=== PATIENT | female | born 2000 | race Caucasian/White ===

== ENCOUNTER 2023-03-07 16:44 | Outpatient (CLI) | payer BC, SELFPAY | END 2023-03-07 16:45 | disposition home or self-care (01) | LOC: LKVREF 16:47 | PROVIDERS: PCP Physician Assistant Medical; Visit Provider Physician Assistant Medical | DX: R06.02 Shortness of breath (principal) | CPT/HCPCS: 84443 ==

== ENCOUNTER 2023-06-22 15:13 | Outpatient (CLI) | payer BC, SELFPAY ==
--- OUTSIDE RECORDS SUMMARY | 2023-06-22 15:20 | XMS_ITS | Referral Summary ---
Author Name Unknown Organization [facility] Address [address] [place] [id number] Care Team Providers Care Assistant Toddler Teacher Name Role Phone Leslie Silvestre MD Primary Care Provider [phone] Leslie Silvestre MD Unavailable [phone] Encounters Date Type Department Care Team Description 04/06/2023 Travel 04/06/2023 12:30 PM OPERATIONS ADMINISTRATIVE ASSISTANT Ancillary Procedure [address] [place] [address] Vi La, MYRA Irregular menses from Last 3 Months Allergies Active Allergy Reactions Criticality Noted Date Comments No Known Drug Allergy 12/10/2002 Medications Medication Sig Dispensed Refills Start Date End Date Status norethindrone-ethiny l estradiol (JUNE06/11) 1-20 MG-MCG tabletIndications:En counter for other contraceptive management Take 1 tablet by mouth daily 84 tablet 3 03/18/2022 Active Additional Information Patient not taking.Reported on 01/31/2023 norethindrone-ethiny l estradiol (MICROGESTIN 1.5/30) 1.5-30 MG-MCG tabletIndications:En counter for other contraceptive management Take 1 tablet by mouth daily 84 tablet 3 07/05/2022 Active Additional Information Patient not taking.Reported on 01/31/2023 escitalopram (LEXAPRO) 10 MG tabletIndications:Mo derate episode of recurrent major depressive disorder (H),KERWIN (generalized anxiety disorder) Take 1 tablet (10 mg) by mouth daily 30 tablet 1 02/02/2023 Active Active Problems Problem Noted Date Diagnosed Date Anxiety 01/10/2023 Moderate recurrent major depression 01/10/2023 Cyst of right ovary 05/14/2020 Atypical squamous cells of u ndetermined significance (ASCUS) on Papanicolaou smear of cervix 06/28/2019 Overview: 06/28/19 ASCUS, 19 yr old. Plan 1 yr Dx pap cytology 04/30/20 NIL pap, neg HPV (age 20). Plan pap only in 1 year 06/22/21 Lost to follow-up for pap tracking 03/17/22 NIL Pap. Plan pap in 3 years. Indication for care in labor or delivery 019 (normal spontaneous vaginal delivery) 12/06 Adjustment disorder with mixed anxiety and depre ssed mood 03/30/2018 Acne vulgaris 03/25/2015 Blood type AB+ Immunizations Name Administration Dates Next Due DTAP (<7y) 07/29/2003, 0,02/04/1999,09/22,1998 HIB (PRP-T) 02/04/1999,1998,1998 HPV 12/18/2013,03/26/2013,01/02/2013 HepB 02/04/1999,1998,1998 Influenza (IIV3) PF 01/28/2012, 8,03/30/2007,07/05 Influenza Vaccine >6 months,quad, PF 01/2020,04/17/2018,06/02/2017,04/01,03/25/2015,05/02/2014,03/26/2013 Influenza Vaccine, 6+MO IM (QUADRIVALENT W/PRESERVATIVES) 02/20/2018 Influenza, seasonal, injectable, PF 02/09/2010,0 02/18/2009 MMR 07/29/2003,06/17/1999 Mantoux Tuberculin Skin Test 07/03/2018 Meningococcal ACWY (Menactra??) 12/18/2013,07/28 Poliovirus, inactivated (IPV) 07/29/2003 ,09/01/1999,1998,05/27 TDAP Vaccine (Adacel) 10/25/2018,10/20/2010 Varicella 03/06/2008,06/17/1999 Social History Tobacco Use Types Packs/Day Years Used Date Smoking Tobacco: Never Smokeless Tobacco: Never Tobacco Cessation:Counseling Given: Not Answered Alcohol Use Standard Drinks/Week Comments Yes 0 (1 standard drink = 0.6 oz pur e alcohol) 0-2 x week Social Connection and Isolat ion Panel [NHANES] Answer Date Recorded In a typical week, how many times do you talk on the phone with family, friends, or neighbors? More than three times a week 07/05/2022 How often do you get togethe r with friends or relatives? Twice a week 07/05/2022 How often do you attend [facility] or pentecostalism services? Never 07/05/2022 Do you belong to any clubs o r organizations such as pentecostal groups, unions, fraternal or athletic groups, or school groups? No 07/05/2022 Attends Club or Organization Meetings Not on brnida e 07/05/2022 Are you , , di vorced, , never , or living with a partner? Patient declined 07/05/2022 AUDIT-C Answer Date Recorded Q1: How often do you have a drink containing alc ohol? Patient declined 07/05/2022 Q2: How many drinks containi ng alcohol do you have on a typical day when you are drinking? Patient declined 07/05/2022 Q3: How often do you have si x or more drinks on one occasion? Patient declined 07/05/2022 Overall Financial Resource Strain (CARDIA) Answe r Date Recorded How hard is it for you to pa y for the very basics like food, housing, medical care, and heating? Patient declined 07/05/2022 PHQ-2 Answer Date Recorded PHQ-2 Score 5 01/31/2023 [facility] [place] [facility] - Occupational Stress Questionnaire Answer Date Recorded Do you feel stress - tense, restless, nervous, or anxious, or unable to sleep at night because your mind is troubled all the time - these days? To some extent 07/05/2022 Exercise Vital Sign Answer Date Recorde d On average, how many days pe r week do you engage in moderate to strenuous exercise (like a brisk walk)? 1 day 07/05/2022 On average, how many minutes do you engage in exercise at this level? 10 min 07/05/2022 Hunger Vital Sign Answer Date Recorded Within the past 12 months, y ou worried that your food would run out before you got the money to buy more. Patient declined Within the past 12 months, t he food you bought just didn't last and you didn't have money to get more. Patient declined PRAPARE - Transportation Answer Date Re corded In the past 12 months, has l ack of transportation kept you from medical appointments or from getting medications? Patient declined 07/05/2022 In the past 12 months, has l ack of transportation kept you from meetings, work, or from getting things needed for daily living? Patient declined 07/05/2022 Housing Stability Vital Sign Answer Car e Recorded In the last 12 months, was t here a time when you were not able to pay the mortgage or rent on time? Patient refused 07/05/19 23 In the last 12 months, how many places have you lived? 1 07/05/2022 In the last 12 months, was t here a time when you did not have a steady place to sleep or slept in a senior living (including now)? Patient refused 07/05/2022 [place] Depression Scale Answer Date Recorded [place] Depression Score 0 12/07/2018 Last EPDS Self Harm Result Not on file 12/07 Education Answer Date Recorded What is the highest level of school you have completed or the highest degree you have received? 12th grade 06/28/2019 Sex and Gender Information Value Date Recorded Sex Assigned at Female 06/28/2018 11:22 AM OPERATIONS ADMINISTRATIVE ASSISTANT Gender Identity Female 06/28/2018 11:22 AM OPERATIONS ADMINISTRATIVE ASSISTANT Sexual Orientation Not on file Last Filed Vital Signs Vital Sign Reading Time Taken Comments Blood Pressure 125/88 02/22/2023 1:50 AM CDT Pulse 80 02/22/2023 1:50 AM CDT Temperature 36.9 ??C (98.5 ??F) 02/21/2023 5:44 PM CD T Respiratory Rate 20 02/22/2023 1:50 AM CDT Oxygen Saturation 99% 02/22/2023 1:50 AM CDT Inhaled Oxygen Concentration - - Weight 54.4 kg (120 lb) 01/31/2023 9:58 AM CDT Height 160 cm (5' 3) 01/31/2023 9:58 AM CDT Body Mass Index 21.26 01/31/2023 9:58 AM CDT Plan of Treatment Upcoming Encounters Date Type Department Care Team (Late st Contact Info) Description 08/03/2023 1:00 PM CDT Office Visit [facility] [address] [place] [phone] [place] Sil[place]re [place] [phone] [place] [id number] Procedures Procedure Name Priority Date/Time Associated Diagnosis Comments US PELVIC TRANSABDOMINAL AND TRANSVAGINAL Routine 04/06/2023 12:46 PM OPERATIONS ADMINISTRATIVE ASSISTANT Irregular menses from Last 3 Months Results * US Pelvic Complete with Transvaginal (04/06/2023 12:46 PM OPERATIONS ADMINISTRATIVE ASSISTANT) Anatomical Region Laterality Modality Abdomen/Pelvis Ultrasound Narrative 04/06/2023 2:37 PM OPERATIONS ADMINISTRATIVE ASSISTANT [facility] Obstetrics and Gynecology ?? ULTRASOUND - PELVIC SIGNALS INTELLIGENCE ANALYSIS MANAGER- Transabdominal and Transvaginal Referring MD: Vi La CLINICAL INFORMATION Indications for ultrasound: Bleeding/Menses - Menorrhagia (heavy menses) and Pain - Pelvic pain LMP: Mar 14 ?Hormones: none Measurements: Uterus: ??8.0 x 5.9 x ??4.8 cm ?? Position is retroverted. ??Contour is smooth/regular. Endo cav: 9.2 mm ? Smooth/regular/wnl Right ovary: 3.9 x 3.4 x 2.3 cm ??Complex cyst 1.7 x 1.3 x 1.5 cm Left ovary: ?? 3.9 x 3.3 x 2.0 cm Wnl Cul de sac: no free fluid Technique: Transvaginal Imaging performed Transabdominal Imaging performed Impression: Complete pelvic ultrasound using realtime transabdominal and transvaginal scanning Bladder appears normal Normal uterus. Uterus is retroverted. Endometrium noted to be normal. Normal left ovary. Complex small right ovarian cyst, benign appearing and consistent with a hemorrhagic corpus luteum. ??Small cysts of this size in reproductive age patients do not typically require follow-up, but clinical correlation recommended. No cul-de-sac fluid. Essentially normal pelvic ultrasound. Issac Islas MD Obstetrics & Gynecology [facility] Note: Federal law requires the release of results to patients even prior to the ordering provider viewing the result. Your provider will notify you, generally within the next business day, of any critical results. If follow up is necessary, you will be notified at that time. Normal results, and abnormal but non-urgent results, will generally be addressed within 2-3 business days. Vi La PA-C [facility] US ORDERABLES from Last 3 Months Care Teams Assistant Toddler Teacher Relationship Specialty [place] [address] [place] [address] PCP - General Family Practice 11/27/18 [place] [address] [place] [address] Assigned PCP 05/11/20
--- OUTSIDE RECORDS SUMMARY | 2023-06-22 15:20 | XMS_ITS | Encounter Summary ---
Author Name Unknown Organization [facility] Address [address] [place] [address] Care Team Providers Care Big 6 Dealer Name Role Phone Leslie Silvestre MD Primary Care Provider [phone] Leslie Silvestre MD Unavailable [phone] Reason for Visit * Reason Comments Menstrual Problem Encounter Details Date Type Department Care Team (Late st Contact Info) Description 02/21/2023 11:47 PM CDT - 02/22/2023 1:51 AM CDT Emergency [facility] Emergency Dept [address] [place] [address] Rickey Elizondo MD [facility] [address] [place] [address] Dysfunctional uterine bleeding Discharge Disposition: Home or Self Care Social History Tobacco Use Types Packs/Day Years Used Date Smoking Tobacco: Never Smokeless Tobacco: Never Alcohol Use Standard Drinks/Week Comments Yes 0 [...] week 07/05/2022 How often do you attend formerly [facility] or [facility] services? Never 07/05/2022 Do you belong to any clubs o r organizations such as uatsdin groups, unions, fraternal or athletic groups, or school groups? No 07/05/2022 Attends Club or Organization Meetings Not on brinda e 07/05/2022 Are you , , di [...] Answer Date Recorded PHQ-2 Score 5 [facility] - Occupational Stress Questionnaire Answer Date Recorded [...] place to sleep or slept in a fdc (including now)? Patient refused 07/05/2022 [place] Depression Scale Answer Date Recorded [place] Depression Score 0 12/07/2018 Last EPDS Self Harm Result Not on file 12/07 Education Answer Date Recorded What is the highest level of school you have completed or the highest degree you have received? 12th grade 06/28/2019 Sex and Gender Information Value Date Recorded Sex Assigned at Female 06/28/2018 11:22 AM DIRECTOR SERVICE Gender Identity Female 06/28/2018 11:22 AM DIRECTOR SERVICE Sexual Orientation Not on file COVID-19 Exposure Response Date Recorded In the last 10 days, have yo u been in contact with someone who was confirmed or suspected to have Coronavirus/COVID-19? No / Unsure 02/21/2023 5:44 PM CDT documented as of this encounter Last Filed Vital Signs Vital Sign Reading Time Taken Comments Blood Pressure 125/88 02/22/2023 1:50 AM CDT Pulse 80 02/22/2023 1:50 AM CDT Temperature 36.9 ??C (98.5 ??F) 02/21/2023 5:44 PM CD T Respiratory Rate 20 02/22/2023 1:50 AM CDT Oxygen Saturation 99% 02/22/2023 1:50 AM CDT Inhaled Oxygen Concentration - - Weight - - Height - - Body Mass Index - - documented in this encounter Discharge Instructions * Discharge Instructions* Rickey Elizondo MD - 02/22/2023 1:38 AM CDT Please monitor symptoms closely. Follow-up with TUCKING MACHINE OPERATOR. You may discuss symptoms further at that time and determine if you would benefit from control medication Return to the ER if you develop worsening bleeding, cramping, dizziness, lightheadedness, or any other concerns. Discharge Instructions Vaginal Bleeding You were seen today for unusual vaginal bleeding. Heavy or irregular bleeding may be caused by manydifferent things such as hormone changes, infection, control, or cancer. At this time your provider does not find that your bleeding is a sign of anything dangerous or life-threatening, and youhave not lost enough blood to be dangerous. However, sometimes the signs of serious illness do not s how up right away. If you have new or worse symptoms, you may need to be seen again in the Emergency Department or by your primary provider. Generally, every Emergency Department visit should have a follow-up clinic visit with either a primary or a specialty clinic/provider. Please follow-up as instructed by your emergency provider today. Return to the Emergency Department if: You feel lightheaded or faint. Your bleeding becomes much heavier than it is now. You have severe cramping or abdominal (belly) pain. You have any new or different symptoms. Treatment: Motrin?? or Advil?? (ibuprofen) can help relieve cramps and can also decrease bleeding. You may usethis according to the directions on the package. Do not use a medicine that you are allergic to, orif your provider has told you not to use it. Hormone pills or control pills are occasionally prescribed to help control the bleeding but often this is left to an TUCKING MACHINE OPERATOR provider. These can cause problems if you have a history of blood clots or stroke, so tell your provider if you have these problems before you leave. Iron tablets may be recommended if you have anemia (low blood count.) Iron can cause constipation, so be sure to have plenty of fiber in your diet and let your provider know if you have problems. Drinking plenty of fluid is important. Be sure to drink extra water or other healthy drinks. If you were given a prescription for medicine here today, be sure to read all of the information (including the package insert) that comes with your prescription. This will include important information about the medicine, its side effects, and any warnings that you need to know about. The pharmacist who fills the prescription can provide more information and answer questions you may have about the medicine. If you have questions or concerns that the pharmacist cannot address, please call or return to the Emergency Department. Remember that you can always come back to the Emergency Department if you are not able to see your regular provider in the amount of time listed above, if you get any new symptoms, or if there is anything that worries you. documented in this encounter Medications at Time of Discharge Medication Sig Dispensed Refills Start Date End Date escitalopram (LEXAPRO) 10 MG tabletIndications:Moderate episode of recurrent major depressive disorder (H),KERWIN (generalized anxiety disorder) Take 1 tablet (10 mg) by mouth daily 30 tablet 1 02/02/2023 norethindrone-ethinyl estradiol (JUNEL FE 06/11) 1-20 MG-MCG tabletIndications:Encounte r for other contraceptive management Take 1 tablet by mouth daily 84 tablet 3 03/18/2022 norethindrone-ethinyl estradiol (MICROGESTIN 1.530) 1.5-30 MG-MCG tabletIndications:Encounte r for other contraceptive management Take 1 tablet by mouth daily 84 tablet 3 07/05/2022 documented as of this encounter ED Notes * Nai Castillo RN - 02/22/2023 12:59 AM CDT Bed: RP01 Expected date: Expected time: Means of arrival: Comments: In use * Ioana Ko RN - 02/21/2023 5:44 PM CDT Pt arrives with changes to her cycle. States it has come at the regular time but it is clotting andsticky and she feels off. Also notes pain to both of her legs that began with her period. ABCs intact. BP (!) 118/94 Pulse 94 Temp 98.5 ??F (36.9 ??C) (Temporal) Resp 20 LMP 01/09/2023 (Approximate) SpO2 100% Triage Assessment Row Name 02/21/23 4084 Triage Assessment (Adult) Airway WDL WDL Respiratory WDL Respiratory WDL WDL Cardiac WDL Cardiac WDL WDL Cognitive/Neuro/Behavioral WDL Cognitive/Neuro/Behavioral WDL WDL * Rickey Elizondo MD - 02/21/2023 5:29 PM CDT History Chief Complaint: Menstrual Problem HPI Yadi Roblero is a 22 year old female presenting to the emergency department for evaluation of a menstrual problem. Patient reports for the past 3 months, she has noted irregular menstrual cycles. She notes they typically occur once per month, though are heavier, with passage of clots, and only lasting for 3 days as opposed to the 7 days. In conjunction with this, she has noted episodes of mild dizziness, lightheadedness, and visual blurring, worsened with changes in body position. She denies any syncopal episodes. Has noted intermittent pain from the right side of her abdomen that radiates superiorly, which has been present for the past 3 months. Denies any vaginal discharge. Past history significant for 1 medication-induced as well as 1 D&C with [facility]. She is not currently on control medications. She does not have a current TUCKING MACHINE OPERATOR provider. Patient presents to the ER today as she noted a unusual sensation to her anterior bilateral lower extremities. She has been cleaning around the house for a few minutes when she developed a feeling of tingling from the distal aspect of her thighs bilaterally extending inferiorly to her shins. This lasted for about 5 minutes. She denies any recurrent symptoms. Denies any associated abdominal pain or back pain with that. Independent Historian: None - Patient Only Review of External Notes: None Medications: No current medications Past Medical History: Past Medical History: Diagnosis Date Abnormal Pap smear of cervix 06/28/2019 Anxiety Blood type AB+ Past Surgical History: Past Surgical History: Procedure Laterality Date NO HISTORY OF SURGERY Physical Exam Patient Vitals for the past 24 hrs: BP Temp Temp src Pulse Resp SpO2 02/22/23 0150 125/88 -- -- 80 20 99 % 02/21/23 1744 (!) 118/94 98.5 ??F (36.9 ??C) Temporal 94 20 100 % Physical Exam General: Well-nourished Speaking in full sentences Eyes: Conjunctiva without injection or scleral icterus ENT: Moist mucous membranes Nares patent Pinnae normal Neck: Full ROM No stiffness appreciated Resp: Lungs CTAB No crackles, wheezing or audible rubs Good air movement CV: Normal rate, regular rhythm S1 and S2 present No murmur, gallop or rub GI: BS present Abdomen soft without distention Non-tender to light and deep palpation No guarding or rebound tenderness : (With female software support engineer present) Unremarkable external genitalia Blood noted in vaginal vault Once cleared, no obvious mass or lesion Cervical os unable to be visualized, though visualized cervix without erythema or discharge No CMT, adnexal or uterine tenderness or palpable mass Skin: Warm, dry, well perfused No rashes or open wounds on exposed skin MSK: Moves all extremities No focal deformities or swelling 2+ DP and PT pulse bilaterally Neuro: Alert 5/5 ankle dorsi/plantarflexion 5/5 knee flexion/extension SILT in BLE Answers questions appropriately Moves all extremities equally Gait stable Psych: Normal affect, normal mood Emergency Department Course Imaging: US Pelvic Complete with Transvaginal Final Result IMPRESSION: 1. Normal pelvic ultrasound. Report per radiology Laboratory: Labs Ordered and Resulted from Time of ED Arrival to Time of ED Departure BASIC METABOLIC PANEL - Abnormal Result Value Sodium 139 Potassium 4.0 Chloride 104 Carbon Dioxide (CO2) 25 Anion Gap 10 Urea Nitrogen 7.9 Creatinine 0.60 GFR Estimate >90 Calcium 8.9 Glucose 120 (*) ISTAT HCG QUALITATIVE POCT - Normal HCG Qualitative POCT Negative WET PREPARATION - Normal Trichomonas Absent Yeast Absent Clue Cells Absent WBCs/high power field None CBC WITH PLATELETS AND DIFFERENTIAL WBC Count 6.9 RBC Count 4.42 Hemoglobin 12.5 Hematocrit 38.2 MCV 86 MCH 28.3 MCHC 32.7 RDW 12.3 Platelet Count 266 % Neutrophils 77 % Lymphocytes 17 % Monocytes 6 Mids % (Monos, Eos, Basos) % Eosinophils 0 % Basophils 0 % Immature Granulocytes 0 NRBCs per 100 WBC 0 Absolute Neutrophils 5.3 Absolute Lymphocytes 1.2 Absolute Monocytes 0.4 Mids Abs (Monos, Eos, Basos) Absolute Eosinophils 0.0 Absolute Basophils 0.0 Absolute Immature Granulocytes 0.0 Absolute NRBCs 0.0 CHLAMYDIA TRACHOMATIS PCR NEISSERIA GONORRHOEAE PCR Procedures None Emergency Department Course & Assessments: Interventions: Medications - No data to display Assessments: See below Independent Interpretation (X-rays, CTs, rhythm strip): None Consultations/Discussion of Management or Tests: ED Course as of 02/22/23 0712 TueFeb 22, 2023 0029 Patient re-evaluated 0144 Patient re-evaluated Social Determinants of Health affecting care: None and Healthcare Access/Compliance Disposition: The patient was discharged to home. Impression & Plan Medical Decision Making: Yadi Roblero is a 22 year old female presenting to the ER for evaluation of vaginal bleeding. VS on presentation reveal no acute abnormalities. DDx is broad, including but not limited to dysfunctional uterine bleeding, menorrhagia, menometrorrhagia, structural abnormalities (fibroids, polyp, pelvic tumor), atrophic endometrium (post-menopausal), trauma (post-coital bleeding), foreign body, infection, underlying coagulopathy, related (ectopic, miscarriage, abruption, placenta previa, trauma), among others. test returned negative. Pelvic US without structural abnormalities to account for symptoms. Despite heavy menses x 3 months, Hgb is within normal limits and patient ishemodynamically stable, which is reassuring. Pelvic examination (with software support engineer present), does not reveal evidence of traumatic injuries to explain bleeding, and there is no evidence of foreign body.No history of underlying coagulopathy, complicating current presentation. Wet prep negative. Pt feels low risk for STI and will await results of GC/Chlamydia prior to empiric therapy. No exam findings to suggest PID. Etiology for patient's transient lower extremity symptoms noted earlier today not entirely clear. Extremity currently warm, well-perfused with normal neurologic function. Doubt bony abnormality given absence of trauma. Transient nature of symptoms as well as bilateral nature argue against DVT. Suggested ongoing close monitoring of symptoms. In light of the above history, examination, and ED course, patient is felt safe for outpatient management and close follow-up. I have recommended follow-up with TUCKING MACHINE OPERATOR in 2 days. Return to the ER with new or troubling symptoms such as incre asing abdominal pain, bleeding through more than 1 pad per hour for 3-4 hours, fever, fainting, dizziness, shortness of breath, or any other new or troubling symptoms. Referral information was provided. All questions were answered prior to discharge. Diagnosis: ICD-10-CM 1. Dysfunctional uterine bleeding N93.8 02/22/2023 Rickey Elizondo MD Roach, Brian Donald, MD 02/22/23 0719 documented in this encounter Plan of Treatment Upcoming Encounters Date Type Department Care Team (Late st Contact Info) Description 08/03/2023 1:00 PM CDT Office Visit [facility] [address] [place] [phone] [place] [address] [place] [address] documented as of this encounter Procedures Procedure Name Priority Date/Time Associated Diagnosis Comments US PELVIC TRANSABDOMINAL AND TRANSVAGINAL STAT 02/22/2023 1:29 AM CDT WET PREPARATION STAT 02/22/2023 12:37 AM CDT NEISSERIA GONORRHOEAE PCR STAT 02/22/2023 12:37 AM CDT CHLAMYDIA TRACHOMATIS PCR STAT 02/22/2023 12:37 AM CDT ISTAT HCG QUALITATIVE POCT STAT 02/22/2023 12:15 AM CDT EXTRA TUBE STAT 02/22/2023 12:12 AM CDT EXTRA RED TOP TUBE STAT 02/22/2023 12 :12 AM CDT CBC WITH PLATELETS AND DIFFERENTIAL STAT 02/22/2023 12:12 AM CDT CBC WITH PLATELETS & DIFFERENTIAL STAT 02/22/2023 12:12 AM CDT BASIC METABOLIC PANEL STAT 02/22/2023 12:12 AM CDT documented in this encounter Results * US Pelvic Complete with Transvaginal (02/22/2023 1:29 AM CDT) Anatomical Region Laterality Modality Abdomen/Pelvis Ultrasound 02/22/2023 1:29 AM CDT Impressions 02/22/2023 1:40 AM CDT IMPRESSION: 1. ??Normal pelvic ultrasound. Narrative 02/22/2023 1:40 AM CDT EXAM: US PELVIC TRANSABDOMINAL AND TRANSVAGINAL LOCATION: [facility] DATE: 02/22/2023 INDICATION: irregular vaginal bleeding COMPARISON: None. TECHNIQUE: Transabdominal scans were performed. Endovaginal ultrasound was performed to better visualize the adnexa. FINDINGS: UTERUS: 8.2 x 4.3 x 5.1 cm. Normal in size and position with no masses. ENDOMETRIUM: 3.9 mm. Normal smooth endometrium. RIGHT OVARY: 3.2 x 2 x 2.5 cm. Normal. LEFT OVARY: 3.4 x 1.5 x 2.4 cm. Normal. No significant free fluid. Procedure Note Jaiden Schofield MD - 02/22/2023 EXAM: US PELVIC TRANSABDOMINAL AND TRANSVAGINAL LOCATION: [facility] DATE: 02/22/2023 INDICATION: irregular vaginal bleeding COMPARISON: None. TECHNIQUE: Transabdominal scans were performed. Endovaginal ultrasound wasperformed to better visualize the adnexa. FINDINGS: UTERUS: 8.2 x 4.3 x 5.1 cm. Normal in size and position with no masses. ENDOMETRIUM: 3.9 mm. Normal smooth endometrium. RIGHT OVARY: 3.2 x 2 x 2.5 cm. Normal. LEFT OVARY: 3.4 x 1.5 x 2.4 cm. Normal. No significant free fluid. IMPRESSION: 1. Normal pelvic ultrasound. Rickey Elizondo MD [facility] [place] ORDERABLES * Neisseria gonorrhoea PCR (02/22/2023 12:37 AM CDT) Neisseria gonorrhoeae Negative Negative 02/22/2023 11:33 AM CDT [facility] Comment:Negative for N. gono rrhoeae rRNA by reimbursement director mediated amplification. A negative result by reimbursement director mediated amplification does not preclude the presence of C. trachomatis infection because results are dependent on proper and adequate collection, absence of inhibitors and sufficient rRNA to be detected. Swab ENDOCERVICAL STRUCTURE / Unknown Non-blood Collection / Unknown 02/22/2023 12:37 AM CDT 02/22/2023 12:40 AM CDT Rickey Elizondo MD LAB - MICRO GENERA L ORDERABLES [facility] Inf. Diseases Diag. Lab [address] [facility], [address] [address], [facility] [phone] * Chlamydia trachomatis PCR (02/22/2023 12:37 AM CDT) Pathologist [facility] Chlamydia trachomatis Negative Negative 02/22/2023 11:33 AM CDT [facility] Comment:A negative result by reimbursement director mediated amplification does not preclude the presence of C. trachomatis infection because results are dependent on proper and adequate collection, absence of inhibitors and sufficient rRNA to be detected. Swab ENDOCERVICAL STRUCTURE / Unknown Non-blood Collection / Unknown 02/22/2023 12:37 AM CDT 02/22/2023 12:40 AM CDT Rickey Elizondo MD LAB - MICRO GENERA L ORDERABLES Performing Organization Address [facility] Co de Phone Number [facility] Inf. Diseases Diag. Lab [address] [facility], [address] [address], [facility] [phone] * Wet prep (02/22/2023 12:37 AM CDT) Pathologist [facility] Trichomonas Absent Absent [facility] 02/22/2023 12:49 AM CDT LABORATORY Yeast Absent Absent [facility] 02/22/2023 12:49 AM CDT [facility] Clue Cells Absent Absent [facility] 02/22/2023 12:49 AM CDT [facility] WBCs/high power field None None [facility] 02/22/2023 12:49 AM CDT [facility] Swab VAGINAL STRUCTURE / Unknown Non-blood Collection / Unknown 02/22/2023 12:37 AM CDT 02/22/2023 12:40 AM CDT Rickey Elizondo MD LAB - MICRO GENERA L ORDERABLES LABORATORY [facility] [address] Lab (1st floor, no room number) [place] [address], [facility] [phone] * iStat HCG Qualitative , POCT (02/22/2023 12:15 AM CDT) Pathologist [facility] HCG Qualitative POCT Negative Negative, Indeterminate 02/22/2023 12:28 AM CDT [facility] POC Blood, venous BLOOD SPECIMEN / Unknown 02/22/2023 12:15 AM CDT 02/22/2023 12:28 AM CDT Rickey Elizondo MD LAB - BEAKER POCT LABORATORY POC [facility] Lab [address] [place] Lab (1st floor, no room number) [place] [address], [facility] [phone] * Extra Red Top Tube (02/22/2023 12:12 AM CDT) [facility] Hold Specimen JIC 02/22/2023 1:32 AM CDT [facility] Blood VENOUS LINE / Unknown Venipuncture / Unknown 02/22/2023 12:12 AM CDT 02/22/2023 12:22 AM CDT Rickey Elizondo MD LAB - BLOOD ORDERA BLES LABORATORY [facility] [address] [facility], no room number) [place] [address], [facility] [phone] * CBC with platelets and differential (02/22/2023 12:12 AM CDT) [facility] WBC Count 6.9 4.0 - 11.0 10e3/uL 02/22/2023 12:25 AM CDT [facility] RBC Count 4.42 3.80 - 5.20 10e6/uL 02/22/2023 12:25 AM CDT [facility] Hemoglobin 12.5 11.7 - 15.7 g/dL 02/22/2023 12:25 AM CDT [facility] Hematocrit 38.2 35.0 - 47.0 % 02/22/2023 12:25 AM CDT [facility] MCV 86 78 - 100 fL 02/22/2023 12:25 AM CDT [facility] MCH 28.3 26.5 - 33.0 pg 02/22/2023 12:25 AM CDT [facility] MCHC 32.7 31.5 - 36.5 g/dL 02/22/2023 12:25 AM CDT [facility] RDW 12.3 10.0 - 15.0 % 02/22/2023 12:25 AM CDT [facility] Platelet Count 266 150 - 450 10e3/uL 02/22/2023 12:25 AM CDT [facility] % Neutrophils 77 % 02/22/2023 12:25 AM CDT [facility] % Lymphocytes 17 % 02/22/2023 12:25 AM CDT [facility] % Monocytes 6 % 02/22/2023 12:25 AM CDT [facility] Mids % (Monos, Eos, Basos) [facility] 02/22/2023 12:25 AM CDT [facility] % Eosinophils 0 % 02/22/2023 12:25 AM CDT [facility] % Basophils 0 % 02/22/2023 12:25 AM CDT [facility] % Immature Granulocytes 0 % 02/22/2023 12:25 AM CDT [facility] NRBCs per 100 WBC 0 <1 /100 023 12:25 AM CDT [facility] Absolute Neutrophils 5.3 1.6 - 8.3 10e3/uL 02/22/2023 12:25 AM CDT [facility] Absolute Lymphocytes 1.2 0.8 - 5.3 10e3/uL 02/22/2023 12:25 AM CDT [facility] Absolute Monocytes 0.4 0.0 - 1.3 10e3/uL 02/22/2023 12:25 AM CDT [facility] Mids Abs (Monos, Eos, Basos) SHARRON 02/22/2023 12:25 AM CDT [facility] Absolute Eosinophils 0.0 0.0 - 0.7 10e3/uL 02/22/2023 12:25 AM CDT [facility] Absolute Basophils 0.0 0.0 - 0.2 10e3/uL 02/22/2023 12:25 AM CDT [facility] Absolute Immature Granulocytes 0.0 <=0.4 10e3/uL 02/22/2023 12:25 AM CDT [facility] Absolute NRBCs 0.0 10e3/uL 02/22/2023 12:25 AM CDT [facility] Blood VENOUS LINE / Unknown Venipuncture / Unknown 02/22/2023 12:12 AM CDT 02/22/2023 12:22 AM CDT Rickey Elizondo MD LAB - BLOOD ORDERA BLES [facility] [address] Lab (1st floor, no room number) [place] [address], [facility] [phone] * (ABNORMAL) Basic metabolic panel (02/22/2023 12:12 AM CDT) Sodium 139 135 - 145 mmol/L 02/22/2023 12:40 AM CDT [facility] Comment:Reference intervals for this test were updated on 02/15/2023 to more accurately reflect our healthy population. There may be differences in the flagging of prior results with similar values performed with this method. Interpretation of those prior results can be made in the context of the updated reference intervals. Potassium 4.0 3.4 - 5.3 mmol/L 02/22/2023 12:40 AM CDT LABORATORY Chloride 104 98 - 107 mmol/L 02/22/2023 12:40 AM CDT LABORATORY Carbon Dioxide (CO2) 25 22 - 29 mmol/L 02/22/2023 12:40 AM CDT [facility] Anion Gap 10 7 - 15 mmol/L 02/22/2023 12:40 AM CDT [facility] Urea Nitrogen 7.9 6.0 - 20.0 mg/dL 02/22/2023 12:40 AM CDT [facility] Creatinine 0.60 0.51 - 0.95 mg/dL 02/22/2023 12:40 AM CDT [facility] GFR Estimate >90 >60 mL/min/1. 73m2 02/22/2023 12:40 AM CDT [facility] Calcium 8.9 8.6 - 10.0 mg/dL 02/22/2023 12:40 AM CDT [facility] Glucose 120(H) 70 - 99 mg/dL 02/22/2023 12:40 AM CDT [facility] Blood VENOUS LINE / Unknown Venipuncture / Unknown 02/22/2023 12:12 AM CDT 02/22/2023 12:22 AM CDT Rickey Elizondo MD LAB - BLOOD ORDERA BLES [facility] [address] Lab (1st floor, no room number) [place] [address], [facility] [phone] documented in this encounter Visit Diagnoses Diagnosis Dysfunctional uterine bleeding Other disorder of menstruation and other abnormal bleeding from female genital tract documented in this encounter Additional Health Concerns Assessment Noted Time PHQ-9 Depression Total Score: 9 06/22/19 24 7:10 AM DIRECTOR SERVICE documented as of this encounter Care Teams Big 6 Dealer Relationship Specialty Start [place] [address] [place] [address] PCP - General Family Practice 11/27/18 [place] [address] [place] [address] Assigned PCP 05/11/20 documented as of this encounter
--- OUTSIDE RECORDS SUMMARY | 2023-06-22 15:20 | XMS_ITS | Encounter Summary ---
Author Name Unknown Organization [facility] Address [address] [place] [address] Care Team Providers Care Lay Out Helper Name Role Phone Leslie Silvestre MD Primary Care Provider [phone] Leslie Silvestre MD Unavailable [phone] Encounter Details Date Type Department Care Team (Latest Contact Info) Description 04/06/2023 Travel Social History Tobacco Use Types Packs/Day Years [...] week 07/05/2022 How often do you attend chur or mormon services? Never 07/05/2022 Do you belong to any clubs o r organizations such as rastafarian groups, unions, fraternal or athletic groups, or [...] Answer Date Recorded PHQ-2 Score 5 01/31/2023 [facility] - Occupational Stress Questionnaire Answer Date Recorded [...] place to sleep or slept in a detention (including now)? Patient refused 07/05/2022 [place] Depression Scale Answer Date Recorded [place] Depression Score 0 12/07/2018 Last EPDS Self Harm Result Not on file 12/07 Education Answer Date Recorded What is the highest level of school you have completed or the highest degree you have received? 12th grade 06/28/2019 Sex and Gender Information Value Date Recorded Sex Assigned at Female 06/28/2018 11:22 AM SECTION CHIEF Gender Identity Female 06/28/2018 11:22 AM SECTION CHIEF Sexual Orientation Not on file documented as of this encounter Plan of Treatment Upcoming Encounters Date Type Department Care Team (Late st Contact Info) Description 08/03/2023 1:00 PM CDT Office Visit [facility] [address] [place] [address] [place] [address] [place] [address] documented as of this encounter Visit Diagnoses Not on filedocumented in this encounter Additional Health Concerns Assessment Noted Time PHQ-9 Depression Total Score: 9 06/22/19 24 7:10 AM SECTION CHIEF documented as of this encounter Care Teams Lay Out Helper Relationship Specialty [place] [address] [place] [address] PCP - General Family Practice 11/27/18 [place] [address] [place] [address] Assigned PCP 05/11/20 documented as of this encounter
--- OUTSIDE RECORDS SUMMARY | 2023-06-22 15:20 | XMS_ITS | Encounter Summary ---
Author Name Unknown Organization [facility] Address [address] [place] [address] Care Team Providers Care Painter Helper Sign Name Role Phone Leslie Silvestre MD Primary Care Provider [phone] Leslie Silvestre MD Unavailable [phone] Encounter Details Date Type Department Care Team (Latest Contact Info) Description 02/21/2023 Travel Social History Tobacco Use Types Packs/Day [...] How often do you attend chur or rastafarian services? Never 07/05/2022 Do you belong to any clubs o r organizations such as sabianism groups, unions, fraternal or athletic groups, or [...] Answer Date Recorded PHQ-2 Score 5 01/31/2023 [facility] - Occupational Stress Questionnaire Answer Date [...] place to sleep or slept in a half-way (including now)? Patient refused 07/05/2022 [place] Depression Scale Answer Date Recorded [place] Depression Score 0 12/07/2018 Last EPDS Self Harm Result Not on file 12/07 Education Answer Date Recorded What is the highest level of school you have completed or the highest degree you have received? 12th grade 06/28/2019 Sex and Gender Information Value Date Recorded Sex Assigned at Female 06/28/2018 11:22 AM EXECUTIVE COMPENSATION ANALYST Gender Identity Female 06/28/2018 11:22 AM EXECUTIVE COMPENSATION ANALYST Sexual Orientation Not on file COVID-19 Exposure Response Date Recorded In the last 10 days, have yo u been in contact with someone who was confirmed or suspected to have Coronavirus/COVID-19? No / Unsure 02/21/2023 5:44 PM CDT documented as of this encounter Plan of Treatment Upcoming Encounters Date Type Department Care Team (Late st Contact Info) Description 08/03/2023 1:00 PM CDT Office Visit [facility] [id number] [place] [phone] [place] Sil[place] [id number] [place] [address] documented as of this encounter Visit Diagnoses Not on filedocumented in this encounter Additional Health Concerns Assessment Noted Time PHQ-9 Depression Total Score: 9 06/22/19 24 7:10 AM EXECUTIVE COMPENSATION ANALYST documented as of this encounter Care Teams Painter Helper Sign Relationship Specialty [place] [address] [place] [address] PCP - General Family Practice 11/27/18 [place] [address] [place] [address] Assigned PCP 05/11/20 documented as of this encounter
--- OUTSIDE RECORDS SUMMARY | 2023-06-22 15:20 | XMS_ITS | Clinical Summary ---
Author Name Unknown Organization [facility] Address [address] [place] [address] Care Team Providers Care Skein Winder Name Role Phone Leslie Silvestre MD Primary Care Provider [phone] Leslie Silvestre MD Unavailable [phone] Allergies Active Allergy Reactions Criticality Noted Date Comments No Known Drug Allergy 12/10/2002 Medications Medication Sig Dispensed Refills Start Date End Date Status norethindrone-ethiny l estradiol (06/11) 1-20 MG-MCG tabletIndications:En counter for other contraceptive [...] on Papanicolaou smear of cervix 06/28/2019 Overview: 2/6/20 ASCUS, 19 yr old. Plan 1 yr [...] 03/30/2018 Acne vulgaris 03/25/2015 Blood type AB+ Encounters Date Type Department Care Team Description 04/06/2023 12:30 PM EMBLEM CUTTER Ancillary Procedure [address] [place] [address] Vi La, MYRA Irregular menses 04/06/2023 Travel from Last 3 Months Immunizations Name Administration Dates Next Due DTAP (<7y) 07/29/2003, 0,02/04/1999,09/22,1998 HIB (PRP-T) 02/04/1999,1998,1998 HPV 12/18/2013,03/26/2013,01/02/2013 HepB 02/04/1999,1998,1998 Influenza (IIV3) PF 01/28/2012, 8,03/30/2007,07/05 Influenza Vaccine >6 months,quad, PF 01/2020,04/17/2018,06/02/2017,04/01,03/25/2015,05/02/2014,03/26/2013 Influenza Vaccine, 6+MO IM (QUADRIVALENT W/PRESERVATIVES) 02/20/2018 Influenza, seasonal, injectable, PF 02/09/2010,0 02/18/2009 MMR 07/29/2003,06/17/1999 Mantoux Tuberculin Skin Test 07/03/2018 Meningococcal ACWY (Menactra??) 12/18/2013,07/28 Poliovirus, inactivated (IPV) 07/29/2003 ,09/01/1999,1998,05/27 TDAP Vaccine (Adacel) 10/25/2018,10/20/2010 Varicella 03/06/2008,06/17/1999 Family History Medical History Relation Comments Depression Father Cancer Maternal Aunt Diabetes Maternal Grandfather Hypertension Maternal Grandfather Hypertension Maternal Grandmother Multiple Sclerosis Maternal Grandmother Neurologic Disorder Maternal Uncle MS Breast Cancer Paternal Grandmother Relation Status Comments Father Alive Maternal Aunt Maternal Grandfather Alive Maternal Grandmother Alive Maternal Uncle Mother Alive Paternal Grandfather Alive Paternal Grandmother Alive Sister Alive Social History Tobacco Use Types Packs/Day Years [...] How often do you attend chur or alevism services? Never 07/05/2022 Do you belong to any clubs o r organizations such as restorationist groups, unions, fraternal or athletic groups, or [...] Answer Date Recorded PHQ-2 Score 5 01/31/2023 [facility] - Occupational Stress [...] place to sleep or slept in a correction (including now)? Patient refused 07/05/2022 [place] Depression Scale Answer Date Recorded [place] Depression Score 0 12/07/2018 Last EPDS Self Harm Result Not on file 12/07 Education Answer Date Recorded What is the highest level of school you have completed or the highest degree you have received? 12th grade 06/28/2019 Sex and Gender Information Value Date Recorded Sex Assigned at Female 06/28/2018 11:22 AM EMBLEM CUTTER Gender Identity Female 06/28/2018 11:22 AM EMBLEM CUTTER Sexual Orientation Not on file Last Filed [...] Description 08/03/2023 1:00 PM CDT Office Visit [address] [address] Leslie Silvestre [place] [id number] [place] [address] Health Maintenance Due Date Last Done Comments COVID-19 Vaccine (#1) 1998 INFLUENZA VACCINE (#1) 2023 , 04/17/2018, 02/20/2018, Additional history exists DEPRESSION 6 MO INDEX REPEAT PHQ-9 06/02/2023 01/31/2023, 04/30/2020, 03/30/2018, Additional history exists ANNUAL REVIEW OF HM ORDERS 07/05/2023 07/05/2022, YEARLY PREVENTIVE VISIT 07/05/2023 07/05/19 23, 04/30/2020, 06/28/2019, Additional history exists PHQ-9 08/01/2023 01/31/2023, 12/0 01/2020, 03/30/2018, Additional history exists PAP 03/17/2025 03/17/2022, 120 01/2020, 06/28/2019 ADVANCE CARE PLANNING 07/05/2027 07/05/2022 DTAP/TDAP/TD IMMUNIZATION (8 - Td or Tdap) 10/25/2028 10/25/2018, 10/20/2010, 07/29/2003, Additional history exists HEPATITIS B IMMUNIZATION Completed 999, 1998, 1998 IPV IMMUNIZATION Completed 07/29/2003, 03/2000, 1998, Additional history exists HPV IMMUNIZATION Completed 12/18/2013, 08/2012, 01/02/2013 MENINGITIS IMMUNIZATION Aged Out 12/18/2013, 07/28 No longer eligible based on patient's age to complete this topic DEPRESSION ACTION PLAN Completed 06/02/2017, 2017 HEPATITIS C SCREENING Completed 04/30/2020 HIV SCREENING Completed 10/29/2020, 01/2020, 06/26/2018, Additional history exists PAP FOLLOW-UP Completed 03/17/2022, 01/2020, 06/28/2019 CHLAMYDIA SCREENING Discontinued 02/22/2023, 02/22/2023, 07/05/2022, Additional history exists Pneumococcal Vaccine: Pediatrics (0 to 5 Years) and At-Risk Patients (6 to 64 Years) Aged Out No longer eligible based on patient's age to complete this topic RSV MONOCLONAL ANTIBODY Aged Out No l onger eligible based on patient's age to complete this topic Procedures Procedure Name Priority Date/Time Associated Diagnosis Comments US PELVIC TRANSABDOMINAL AND TRANSVAGINAL Routine 04/06/2023 12:46 PM EMBLEM CUTTER Irregular menses from Last 3 Months Results * US Pelvic Complete with Transvaginal (04/06/2023 12:46 PM EMBLEM CUTTER) Anatomical Region Laterality Modality Abdomen/Pelvis Ultrasound Narrative 04/06/2023 2:37 PM EMBLEM CUTTER [facility] ?? ULTRASOUND - PELVIC GLAZE GRINDER- Transabdominal and Transvaginal Referring MD: Vi La [...] ultrasound. Issac Islas MD Obstetrics & Gynecology [facility] Note: Federal law requires the release [...] within 2-3 business days. Vi La PA-C Vandana US ORDERABLES from Last 3 Months Care Teams Skein Winder Relationship Specialty [place] [address] [place] [address] PCP - General Family Practice 11/27/18 [place] [address] [place] [address] Assigned PCP 05/11/20
--- OUTSIDE RECORDS SUMMARY | 2023-06-22 15:20 | XMS_ITS | Encounter Summary ---
Author Name Unknown Organization [facility] Address [address] [place] [address] Care Team Providers Care Nutrition Teacher Name Role Phone Leslie Silvestre MD Primary Care Provider [phone] Leslie Silvestre MD Unavailable [phone] Encounter Details Date Type Department Care Team (Latest Contact Info) Description 01/31/2023 Travel Social History Tobacco Use Types Packs/Day [...] How often do you attend chur or hinduism services? Never 07/05/2022 Do you belong to any clubs o r organizations such as baptist groups, unions, fraternal or athletic groups, or [...] Answer Date Recorded PHQ-2 Score 5 01/31/2023 [facility] - Occupational Stress Questionnaire Answer Date [...] senior living (including now)? Patient refused 07/05/2022 [place] Depression Scale Answer Date Recorded [place] Depression Score 0 12/07/2018 Last EPDS Self Harm Result Not on file 12/07 Education Answer Date Recorded What is the highest level of school you have completed or the highest degree you have received? 12th grade 06/28/2019 Sex and Gender Information Value Date Recorded Sex Assigned at Female 06/28/2018 11:22 AM SEAMLESS TUBE MILL OPERATOR Gender Identity Female 06/28/2018 11:22 AM SEAMLESS TUBE MILL OPERATOR Sexual Orientation Not on file COVID-19 Exposure Response Date Recorded In the last 10 days, have yo u been in contact with someone who was confirmed or suspected to have Coronavirus/COVID-19? No / Unsure 01/31/2023 9:42 AM CDT documented as of this encounter Plan of Treatment Upcoming Encounters Date Type Department Care Team (Late st Contact Info) Description 08/03/2023 1:00 PM CDT Office Visit [facility] [id number] [place] [phone] [place] Silvest[place] [id number] [place] [address] documented as of this encounter Visit Diagnoses Not on filedocumented in this encounter Additional Health Concerns Assessment Noted Time PHQ-9 Depression Total Score: 9 06/22/19 24 7:10 AM SEAMLESS TUBE MILL OPERATOR documented as of this encounter Care Teams Nutrition Teacher Relationship Specialty [place] [address] [place] [address] PCP - General Family Practice 11/27/18 [place] [address] [place] [address] Assigned PCP 05/11/20 documented as of this encounter
--- OUTSIDE RECORDS SUMMARY | 2023-06-22 15:20 | XMS_ITS | Encounter Summary ---
Author Name Unknown Organization [facility] Address [address] [place] [address] Care Team Providers Care Pulp Cooker Name Role Phone Leslie Silvestre MD Primary Care Provider Leslie Silvestre MD Unavailable [phone] Reason for Visit * Diagnostic Imaging Ultrasound (Routine) - Pending Review Specialty Diagnoses / Procedures Referred By Abelardo farr Referred To Contact Radiology. Diagnoses Irregular menses Procedures US Pelvic Complete with Transvaginal Vi La PA-C [address] [place] [address] Referral ID Status Reason Start Date Expiration Date V isits Requested Visits Authorized [id number] Pending Review 01/31/2023 01/31/2024 1 1 Encounter Details Date Type Department Care Team (Latest Contact Info) Description 04/06/2023 12:30 PM SPANISH LANGUAGE LECTURER Ancillary Procedure [address] [place] [phone] Vi La PA-C [address] [place] [address] Irregular menses Social History Tobacco Use Types Packs/Day Years [...] 07/05/2022 How often do you attend chur ch or worship services? Never 07/05/2022 Do you belong to any clubs o r organizations such as restoration groups, unions, fraternal or athletic groups, or [...] Answer Date Recorded PHQ-2 Score 5 01/31/2023 [facility]at [facility] - [...] place to sleep or slept in a group home (including now)? Patient refused 07/05/2022 [place] Depression Scale Answer Date Recorded [place] Depression Score 0 12/07/2018 Last EPDS Self Harm Result Not on file 12/07 Education Answer Date Recorded What is the highest level of school you have completed or the highest degree you have received? 12th grade 06/28/2019 Sex and Gender Information Value Date Recorded Sex Assigned at Female 06/28/2018 11:22 AM SPANISH LANGUAGE LECTURER Gender Identity Female 06/28/2018 11:22 AM SPANISH LANGUAGE LECTURER Sexual Orientation Not on file documented as of this encounter Plan of Treatment Upcoming Encounters Date Type Department Care Team (Late st Contact Info) Description 08/03/2023 1:00 PM CDT Office Visit [facility] [address] [place] [phone] Leslie Silvestre MD [address] [place] [address] documented as of this encounter Procedures Procedure Name Priority Date/Time Associated Diagnosis Comments US PELVIC TRANSABDOMINAL AND TRANSVAGINAL Routine 04/06/2023 12:46 PM SPANISH LANGUAGE LECTURER Irregular menses documented in this encounter Results * US Pelvic Complete with Transvaginal (04/06/2023 12:46 PM SPANISH LANGUAGE LECTURER) Anatomical Region Laterality Modality Abdomen/Pelvis Ultrasound Narrative 04/06/2023 2:37 PM SPANISH LANGUAGE LECTURER [facility] ?? ULTRASOUND - PELVIC BRUSHER WARP- Transabdominal and Transvaginal Referring MD: Vi La [...] ultrasound. Issac Islas MD Obstetrics & Gynecology [facility] Note: Federal law requires the release [...] within 2-3 business days. Vi La PA-C IMG US ORDERABLES documented in this encounter Visit Diagnoses Diagnosis Irregular menses Irregular menstrual cycle documented in this encounter Additional Health Concerns Assessment Noted Time PHQ-9 Depression Total Score: 9 06/22/19 24 7:10 AM SPANISH LANGUAGE LECTURER documented as of this encounter Care Teams Pulp Cooker Relationship Specialty [place] [address] [place] [address] PCP - General Family Practice 11/27/18 [place] [address] [place] [address] Assigned PCP 05/11/20 documented as of this encounter
--- OUTSIDE RECORDS SUMMARY | 2023-06-22 15:20 | XMS_ITS | Encounter Summary ---
Author Name Unknown Organization [facility] Address [address] [place] [address]. [place] [address] Care Team Providers Care Manufacturing Test Engineer Name Role Phone Leslie Silvestre MD Primary Care Provider [phone] Leslie Silvestre MD Unavailable [phone] Encounter Details Date Type Department Care Team (Late st Contact Info) Description 02/01/2023 My[facility] Medical Advice [facility] [address] [place] [phone] Vi La, PAJazmine [id number] [place] [phone] Moderate episode of recurrent major depressive disorder (H) (Primary Dx); KERWIN (generalized anxiety disorder) Social History Tobacco Use Types Packs/Day Years [...] often do you attend chur ch or shinto services? Never 07/05/2022 Do you belong to any clubs o r organizations such as congregational groups, unions, fraternal or athletic groups, or [...] Answer Date Recorded PHQ-2 Score 5 01/31/2023 [facility] - Occupational Stress Questionnaire Answer Date Recorded [...] place to sleep or slept in a custodial (including now)? Patient refused 07/05/2022 [place] Depression Scale Answer Date Recorded [place] Depression Score 0 12/07/2018 Last EPDS Self Harm Result Not on file 12/07 Education Answer Date Recorded What is the highest level of school you have completed or the highest degree you have received? 12th grade 06/28/2019 Sex and Gender Information Value Date Recorded Sex Assigned at Female 06/28/2018 11:22 AM BREAD PAN GREASER Gender Identity Female 06/28/2018 11:22 AM BREAD PAN GREASER Sexual Orientation Not on file COVID-19 Exposure Response Date Recorded In the last 10 days, have yo u been in contact with someone who was confirmed or suspected to have Coronavirus/COVID-19? No / Unsure 01/31/2023 9:42 AM CDT documented as of this encounter Miscellaneous Notes * Telephone Encounter - Leslie Silvestre MD - 02/02/2023 10:17 AM CDT . documented in this encounter Plan of Treatment Upcoming Encounters Date Type Department Care Team (Late st Contact Info) Description 08/03/2023 1:00 PM CDT Office Visit [facility] [address] [place] [phone] [place] Silvestre [place] [id number] [place] [phone] documented as of this encounter Visit Diagnoses Diagnosis Moderate episode of recurrent major depressive disorder (H)- Primary KERWIN (generalized anxiety disorder) Generalized anxiety disorder documented in this encounter Additional Health Concerns Assessment Noted Time PHQ-9 Depression Total Score: 9 06/22/19 24 7:10 AM BREAD PAN GREASER documented as of this encounter Care Teams Manufacturing Test Engineer Relationship Specialty Start [place] [address] [place] [address] PCP - General Family Practice 11/27/18 [place] [address] [place] [address] Assigned PCP 05/11/20 documented as of this encounter
--- OUTSIDE RECORDS SUMMARY | 2023-06-22 15:21 | XMS_ITS | Encounter Summary ---
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 Name Role Phone Leslie Silvestre MD Primary Care Provider [phone] Leslie Silvestre MD Unavailable [phone] Reason for Visit * Reason Comments Anxiety Encounter Details Date Type Department Care Team (Late st Contact Info) Description 01/10/2023 3:54 PM CDT - 01/10/2023 8:39 PM CDT Emergency [facility] Emergency Dept [address] [place] [address] Rey Hernandez PA-C [facility] [address] [place], [place] [address] Panic attack; Anxiety; Atypical chest pain Discharge Disposition: Home or Self Care Social [...] week 07/05/2022 How often do you attend [facility] or cheondoism services? Never 07/05/2022 Do you belong to any clubs o r organizations such as buddhist groups, unions, fraternal or athletic groups, or [...] 07/05/2022 PHQ-2 Answer Date Recorded PHQ-2 Score 2 07/05/2022 [facility] - Occupational Stress Questionnaire Answer Date [...] place to sleep or slept in a retirement (including now)? Patient refused 07/05/2022 [place] Depression Scale Answer Date Recorded [place] Depression Score 0 12/07/2018 Last EPDS Self Harm Result Not on file 12/07 Education Answer Date Recorded What is the highest level of school you have completed or the highest degree you have received? 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 No / Unsure 12/27/2022 9:06 AM CDT documented as of this encounter Last Filed Vital Signs Vital Sign Reading Time Taken Comments Blood Pressure 132/79 01/10/2023 8:00 PM CDT Pulse 102 01/10/2023 8:00 PM CDT Temperature 36.4 ??C (97.6 ??F) 01/10/2023 1:45 PM CD T Respiratory Rate 22 01/10/2023 1:45 PM CDT Oxygen Saturation 99% 01/10/2023 8:00 PM CDT Inhaled Oxygen Concentration - - Weight - - Height - - Body Mass Index - - documented in this encounter Discharge Instructions * Discharge Instructions* Rey Hernandez PA-C - 01/10/2023 7:44 PM CDT Discharge Instructions Chest Pain You have been seen today for chest pain or discomfort. At this time, your provider has found no signs that your chest pain is due to a serious or life- threatening condition, (or you have declined more testing and/or admission to the hospital). However, sometimes there is a serious problem that doesnot show up right away. Your evaluation today may not be complete and you may need further testing and evaluation. Generally, every Emergency Department visit should have a follow-up clinic visit with either a primary or a specialty clinic/provider. Please follow-up as instructed by your emergency provider today. Return to the Emergency Department if: Your chest pain changes, gets worse, starts to happen more often, or comes with less activity. You are newly short of breath. You get very weak or tired. You pass out or faint. You have any new symptoms, like fever, cough, numb legs, or you cough up blood. You have anything else that worries you. Until you follow-up with your regular provider, please do the following: Take one aspirin daily unless you have an allergy or are told not to by your provider. If a stress test appointment has been made, go to the appointment. If you have questions, contact your regular provider. Follow-up with your regular provider/clinic as directed; this is very important. If you were given a prescription for [...] if there is anything that worries you. Discharge Instructions Mental Health Concerns You were seen today for mental health concerns, such as depression, anxiety, or suicidal thinking. Your provider feels that you do not require hospitalization at this time. However, your symptoms maybecome worse, and you may need to return to the Emergency Department. Most treatments of depressionand suicidal thoughts are a process rather than a single intervention. Medications and counseling can take several weeks or more to help. Generally, every Emergency Department visit should have a follow-up clinic visit with either a primary or a specialty clinic/provider. Please follow-up as instructed by your emergency provider today. By accepting these discharge instructions: You promise to not harm yourself or others. You agree that if you feel you are becoming unable to keep that promise, you will do something to help yourself before you do anything to harm yourself or others. You agree to keep any safety plan arranged on your visit here today. You agree to take any medication prescribed or recommended by your provider. If you are getting worse, you can contact a friend or a family member, contact your counselor or family provider, contact a crisis line, or other options discussed with the provider or therapist today. At any time, you can call 911 and return to the Emergency Department for more help. You understand that follow-up is essential to your treatment, and you will make and keep appointments recommended on your visit today. How to improve your mental health and prevent suicide: Involve others by letting family, friends, counselors know. Do not isolate yourself. Avoid alcohol or drugs. Remove weapons, poisons from your home. Try to stick to routines for eating, sleeping and getting regular exercise. Try to get into sunlight. Bright natural light not only treats seasonal affective disorder but alsodepression. Increase safe activities that you enjoy. If you feel worse, contact [phone] ( ), or call 911, or your primary provider/counselor for additional assistance. If you were given a prescription for [...] if there is anything that worries you. * Attachments The following attachments cannot be sent through Care Everywhere. * Panic Attacks (Mexican) documented in this encounter Medications at Time of Discharge Medication Sig Dispensed Refills Start Date End Date norethindrone-ethinyl estradiol (06/11) 1-20 MG-MCG tabletIndications:Encounte r for other contraceptive management Take 1 tablet by mouth daily 84 tablet 3 03/18/2022 norethindrone-ethinyl estradiol (MICROGESTIN 1.530) 1.5-30 MG-MCG tabletIndications:Encounte r for other contraceptive management Take 1 tablet by mouth daily 84 tablet 3 07/05/2022 documented as of this encounter Consult Notes * Howard Roper - 01/10/2023 8:39 PM CDTAssociated Order(s): [facility] (DEC) ASSESSMENT ORDER Diagnostic Evaluation Consultation Crisis Assessment Patient Name: Yadi Roblero Age: [age] year old Legal Sex: female Gender Identity: female Pronouns: Race: Black or Ethnicity: Not or Language: Mexican Patient was assessed: In person Patient location: [facility] EMERGENCY [facility]PT Referral Data and Chief Complaint Yadi Roblero presents to the ED by self. Patient is presenting to the ED for the following concerns: Anxiety, Depression. Factors that make the mental health crisis life threatening or complex are: Patient is experiencing debilitating panic attacks and worsening anxiety over the past several weeks, culminating in this ED presentation. Patient has a variety of stressoras comlicating her current situation. patient' son is on the Autism Spectrum. She went out last night with her current boyfriendwho was in attendance with his ex girlfriend as well at the club, exacerbating patients anxiety anddepression.. Informed Consent and Assessment Methods Explained the crisis assessment process, including applicable information disclosures and limits toconfidentiality, assessed understanding of the process, and obtained consent to proceed with the assessment. Assessment methods included conducting a formal interview with patient, review of medical records, collaboration with medical staff, and obtaining relevant collateral information from familyand community providers when available. : done Patient response to interventions: eager to participate, acceptance expressed, verbalizes understanding Coping skills were attempted to reduce the crisis: Engaged successfully breathing exercises in the ED to mitigate symptoms. attempted visualization techniques as well with negligable results due to Ativan provided in the ED. History of the Crisis Patient has prior diagnosis of KERWIN and an adjustment disorder. Currently, patient is experiencing debilitating panic attacks and moderate depression. Patient is labile in assessment, teary, panicky, and then resolves only to trigger again. Patient endorses dissociating and derealization as well. patient travels between fight or flight and freezing up, resulting in somatic symptoms of tingling extremities, pounding heart, difficulty with ADL's where she wants to stay in bed, does not shower, hasmarketdly decreased appetite, and is having issues getting to sleep, acquiring anywhere from 3-7 hours of sleep per night. symptoms started to present several years ago, increasing over the past two y ears, and now becoming problematic. 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 Patient started a therapist this week but it is telehealth, and is seeking in person therapy. Given patientssituation and stressors she has bouts of anger that contribute to her anxiety. She is not taking action on her anger but notes it is an issue. Patient feels angry, unloved, and uncared for in reference to her boyfriend, and her mother has difficulty understanding her anxiety issues, all contributing further to her concerns. Patient is not suicidal, homicidal, or self injurious. She does endorswe having SI on occasion, and she fears not waking up from sleep, and endorses a racing mind/thoughts and seeing the worst outcomes in every situation. patient has been drinking lately to self medicate. Patient outlined a panic attack she had on where she experienced pain in her extremities andwas unable to speak. She is currently and historically not on any medications, nor has she engaged therapy until this week. Calls for collateral to her mother went unanswered and the mailbox is full. Brief Psychosocial History Family: Single, Children yes Support System: Parent(s), Grandparent(s), Sibling(s) Employment Status: employment seeking Source of Income: none Financial Environmental Concerns: No concerns identified Current Hobbies: family functions, games, group/social activities, television/movies/videos Barriers in Personal Life: emotional concerns Significant Clinical History Current Anxiety Symptoms: panic attack, racing thoughts, excessive worry, shortness of breath or racing heart, anxious Current Depression/Trauma: sense of doom, difficulty concentrating, negativistic, crying or feels like crying, hoplessness Current Somatic Symptoms: sweating, flushing, shaking, somatic symptoms (abdominal pain, headache, tension), racing thoughts, excessive worry, shortness of breath or racing heart, anxious Current Psychosis/Thought Disturbance: (none noted) Current Eating Symptoms: loss of appetite Chemical Use History: Alcohol: Binge (only recently to self medicate. No indication of disorder.) Last Use:: 01/06/23 Benzodiazepines: None Opiates: None Cocaine: None Marijuana: None Other Use: None Withdrawal Symptoms: (none noted) Addictions: (none noted) Past diagnosis: Anxiety Disorder Family history: Anxiety Disorder, Depression, Substance Use Disorder, Autism Past treatment: No known formal treatment attempts Details of most recent treatment: Just started tele therapy in the past week. Other relevant history: none noted Collateral Information Is there collateral information: No Collateral information name, relationship, phone number: What happened today: What is different about patient's functioning: Concern about alcohol/drug use: What do you think the patient needs: Has patient made comments about wanting to kill themselves/others: If d/c is recommended, can they take part in safety/aftercare planning: Additional collateral information: Risk Assessment [place] Suicide Severity Rating Scale Full Clinical Version: [place] Suicide Severity Rating Scale Recent: Suicidal Ideation (Recent) Q1 Wished to be (Past Month): yes Q2 Suicidal Thoughts (Past Month): yes Q3 Suicidal Thought Method: yes Q4 Suicidal Intent without Specific Plan: no Q5 Suicide Intent with Specific Plan: no Level of Risk per Screen: moderate risk Intensity of Ideation (Recent) Most Severe Ideation Rating (Past 1 Month): 4 Description of Most Severe Ideation (Past 1 Month): Go to sleep and not wake up. Frequency (Past 1 Month): Less than once a week Duration (Past 1 Month): Fleeting, few seconds or minutes Controllability (Past 1 Month): Can control thoughts with a lot of difficulty Deterrents (Past 1 Month): Deterrents definitely stopped you from attempting suicide Reasons for Ideation (Past 1 Month): Completely to end or stop the pain (You couldn't go on living with the pain or how you were feeling) Suicidal Behavior (Recent) Actual Attempt (Past 3 Months): No Total Number of Actual Attempts (Past 3 Months): 0 Actual Attempt Description (Past 3 Months): none noted Interrupted Attempts (Past 3 Months): No Total Number of Interrupted Attempts (Past 3 Months): 0 Interrupted Attempt Description (Past 3 Months): none noted Aborted or Self-Interrupted Attempt (Past 3 Months): No Total Number of Aborted or Self-Interrupted Attempts (Past 3 Months): 0 Aborted or Self-Interrupted Attempt Description (Past 3 Months): none noted Preparatory Acts or Behavior (Past 3 Months): No Total Number of Preparatory Acts (Past 3 Months): 0 Preparatory Acts or Behavior Description (Past 3 Months): none noted Environmental or Psychosocial Events: other life stressors, recent life events (see comment) (Recently went out with boyfriend only to have his new girlfriend/friend show up. She will drink to shut it all out of her mind, a recent change to mitigate stress for her.) Protective Factors: Protective Factors: strong caballero to family unit, community support, or employment, responsibilities and duties to others, including pets and children, lives in a responsibly safe and stable environment, good treatment engagement, sense of importance of health and wellness, able to access care without barriers, supportive ongoing medical and mental health care relationships, help seeking, good impulse control, good problem-solving, coping, and conflict resolution skills, senseof belonging, sense of self-efficacy and/or positive self-esteem, optimistic outlook - identification of future goals, constructive use of leisure time, enjoyable activities, resilience, reality testing ability Does the patient have thoughts of harming others? Feels Like Hurting Others: no Previous Attempt to Hurt Others: no Current presentation: (Calm, cooperative. conversational.) Is the patient engaging in sexually inappropriate behavior?: no Is the patient engaging in sexually inappropriate behavior? no Mental Status Exam Affect: Labile Appearance: Appropriate Attention Span/Concentration: Attentive Eye Contact: Engaged Fund of Knowledge: Appropriate Language /Speech Content: Fluent Language /Speech Volume: Soft Language /Speech Rate/Productions: Normal Recent Memory: Intact Remote Memory: Intact Mood: Anxious, Sad Orientation to Person: Yes Orientation to Place: Yes Orientation to Time of Day: Yes Orientation to Date: Yes Situation (Do they understand why they are here?): Yes Psychomotor Behavior: Normal Thought Content: Clear (none noted) Thought Form: Intact Mini-Cog Assessment Number of Words Recalled: Clock-Drawing Test: Three Item Recall: Mini-Cog Total Score: Medication Psychotropic medications: Medication Orders - Psychiatric (From admission, onward) None Current Care Team Patient Care Team: Leslie Silvestre MD as PCP - General ([facility]) Leslie Silvestre MD as Assigned PCP Diagnosis Patient Active Problem List Diagnosis Code Acne vulgaris L70.0 Adjustment disorder with mixed anxiety and depressed mood F43.23 Blood type AB+ Z67.30 Indication for care in labor or delivery O75.9 (normal spontaneous vaginal delivery) O80 Atypical squamous cells of undetermined significance (ASCUS) on Papanicolaou smear of cervix R87.610 Cyst of right ovary N83.201 Anxiety F41.9 Moderate recurrent major depression (H) F33.1 Primary Problem This Admission Active Hospital Problems Anxiety Moderate recurrent major depression (H) Clinical Summary and Substantiation of Recommendations Patient is not suicidal, homicidal, or self injurious. Patient is experiencing panic attacks, anxiety attacks and increased anxiety overall that is intrusive and debilitating. patient has not previously engaged in therapy or medication management. As such, patient is discharged with appointments through [facility] for medication management and an in person therapist, both engaging in days. Patient endorses discharge and course of action. Advised to return to the ED whenever symptoms are unmanagealbe or concerning. Patient coping skills attempted to reduce the crisis: Engaged successfully breathing exercises in the ED to mitigate symptoms. attempted visualization techniques as well with negligable results due to Ativan provided in the ED. Disposition Recommended disposition: Medication Management, Individual Therapy Reviewed case and recommendations with attending provider. Attending Name: Dr. Kelle Hernandez, MACIEJC Attending concurs with disposition: yes Patient and/or validated legal guardian concurs with disposition: yes Final disposition: discharge Legal status on admission: Assessment Details Total duration spent on the patient case in minutes: 60 min CPT code(s) utilized: 76565 - Psychotherapy for Crisis - 60 (30-74*) min Howard Roper Psychotherapist DEC - Triage & Transition Services Callback: [phone] Associated attestation - Yen Broderick LICSW - 01/11/2023 4:35 PM CDT Service Performed and Documented by Clinical Trainee Note reviewed and clinical supervision by MARILU Vernon,CANDLE POURER, DIRECTOR DIGITAL ADVERTISING, January 11, 2023 documented in this encounter ED Notes * Howard Roper E - 01/10/2023 8:02 PM CDT If I am feeling unsafe or I am in a crisis, I will: Contact my established care providers Call the [place] Suicide Prevention Lifeline: [phone] Go to the nearest emergency room Call 911 Warning signs that I or other people might notice when a crisis is developing for me: I am unable to manage my anxiety and it is debilitating as I am unable to calm symptoms, don't feel fully functional (shaking, tingly, etc) Things I am able to do on my own to cope or help me feel better: Use my breathing skill set (squarebreathing, breath count, etc) Things that I am able to do with others to cope or help me better: Spend quality time with family and friends, my son. Things I can use or do for distraction: Music, movies, TV, reading. Changes I can make to support my mental health and wellness: Keep all of my appointments. If I cannot keep an appt, call and reschedule. Same with medications, if they are not working, contact my provider before just stopping taking them!!! People in my life that I can ask for help: Mom, sister, grandma! Your [facility] has a mental health crisis team you can call 13/12: [facility] Crisis: [phone] Other things that are important when I???m in crisis: I am not alone, I have resources, just ask!!!!! Additional resources and information: What is Mindfulness? Mindfulness is an ancient eastern practice which is very relevant for our lives today.Mindfulness is a very simple concept. Mindfulness means paying attention in a particular way: on purpose, in the present moment, and non-judgementally. Mindfulness does not conflict with any beliefs ortraditions, whether cheondoism, cultural or scientific. It is simply a practical way to notice thoughts, physical sensations, sights, sounds, smells - anything we might not normally notice. The actual skillsmight be simple, but because it is so different to how our minds normally behave, it takes a lot of practice. We might go out into the garden and as we look around, we might think That grassreally needs cutting, and that vegetable patch looks very untidy. A young child on the other hand, will call over excitedly, Hey - come and look at this ant! Mindfulness can simply be noticing whatwe don't normally notice, because our heads are too busy in the future or in the past - thinking about what we need to do, or going over what we have done. Mindfulness might simply be described aschoosing and learning to control our focus of attention. Page 2 of 4 .getselfjennifer.co.uk/mindfulness.htm www.Oyster.com.M[employer] - formerly [employer] ?? Annalise Elishavíctor 2009, permission to use for therapy purposes. Sample Grader In a car, we can sometimes drive for miles on ???automatic photogrammetry airplane pilot?? , without really being aware of what we are doing. In the same way, we may not be really ???present?? , dtxope-nx-hzysyi, for much of our lives: We canoften be ???miles away?? without knowing it. On automatic photogrammetry airplane pilot, we are more likely to have our ???buttons pressed?? : around us and thoughts, feelings and sensations (of which we may be only dimly aware) can trigger old habits of thinking thatare often unhelpful and may lead to worsening mood. By becoming moreaware of our thoughts, feelings, and body sensations, from moment to moment, we give ourselves the possibility of greater freedom and choice; we do not have to go into the same old ???mental ruts?? that may have caused problems in the past. Mindful Activity If we wash the dishes each evening, we might tend to be ???in our heads? as we?re washing up, thinking about what we have to do, what we've done earlier in the day, worrying about future events, or regretful thoughts about the past. Again, ayoung child might see things differently, Listen to thosebubbles! They're fun! Washing up or another routine activity can become a routine (practice of) mindful activity for us. We might notice thetemperature of the water and how it feels on the skin, the texture of the bubbleson the skin, and yes, we might hear the bubbles as they softly pop. The sounds of the water as we take out and put dishesinto the water. The smoothness of the plates, and the texture of the sponge. Just noticing what we might not normally notice. A mindful walk brings new pleasures. Walking is something most of us doat some time during the day.We can practice, even if only for a couple of minutes at a time, mindful walking. Rather than be in our heads, we can look around and notice what we see, hear, sense. We mightnotice the sensations in our own body just through the act of walking. Noticing the sensations and movement of our feet, legs, arms, head and body as we take each step. Noticing our breathing. Thoughts willcontinuously intrude, but we can just notice them, and then bring our attention back to our walking. The more we practice, perhaps the more (initially at least) we will notice those thoughtsintruding,and that's ok. The only aim of mindful activity is to bring our attention back to the activity continually, noticing those sensations, from outside and within us. Page 3 of 4 www.[employer]/LBRelfhelp.co.uk/mindfulness.htm www.Oyster.com.Moki - formerly [employer] ?? Annalise Saeed 2009, permission to use for therapy purposes. Mindful Breathing The primary focus in Mindfulness Meditation is the breathing. However, the primary goal is a calm, non-judging awareness, allowing thoughts and feelings to come and go withoutgetting caught up in them. This creates calmness and acceptance. ? Sit comfortably, with your eyes closed and your spine reasonably straight. ? Direct your attention to your breathing. ? When thoughts, emotions, physical feelings or external sounds occur, accept them, giving them thespace to come and go without judging or getting involved with them. ? When you notice that your attention has drifted off and is becoming caught up in thoughts or feelings,simply note that the attention has drifted, and then gently bring the attention back to your breathing. It's ok and natural for thoughts to arise, and for your attention to follow them. No matterhow manytimes this happens, just keep bringing your attention back to your breathing. Breathing Meditation 1 (Donn 1995) Assume a comfortable posture lying on your back or sitting. If you are sitting, keep the spine straight and let your shoulders drop. Close your eyes if itfeels comfortable. Bring your attention to your belly, feeling it rise or expand gently on the in- breath and fall or recede on the out-breath. Keep your focus on the breathing, ???being with? each in-breath for its full duration and with eachout-breath for its full duration, as if you were riding the waves of your own breathing. Every timeyou notice that your mind has wandered off the breath, notice what it was that took you away and then gently bring your attention back to your belly and the feeling of the breath coming in and out. If your mind wanders away from the breath a thousand times, then your job is simply to bring it back to the breath every time, no matter what it becomes preoccupied with. Practice this exercisefor fifteen minutes at a convenient time every day, whether you feel like it or not, for one week and see how it feels to incorporate a disciplined meditation practice into yourlife. Be aware of how itfeels to spend some time each day just being with your breath without having to do anything.Page 4 of 4 www.edelight.co.uk/mindfulness.htm www.O[employer].com.Moki - formerly [employer] ?? Annalise Saeed 2009, permission to use fortherapy purposes. Breathing Meditation 2 (Donn 1995) ? Tune into your breathing at different times during the day, feeling the belly go through one or two risings and fallings. ? Become aware of your thoughts andfeelings at these moments, just observing them without judging them or yourself. ? At the same time, be aware of any changes in the way you are seeing things and feeling about yourself. Using mindfulness to cope with negative experiences (thoughts, feelings, events) As we become morepractised at using mindfulness for breathing, body sensations and routine daily activities, so we can then learn to be mindful of our thoughts and feelings, to become observers, and then more accepting ofthem. This results in less distressing feelings, and increases our ability to enjoy our lives. With mindfulness, even the most disturbing sensations, feelings, thoughts, and experiences, can be viewedfrom a wider perspective as passing events in the mind, rather than as us, or as being necessarily true. (Isma 2003) When we are more practiced in using mindfulness, we can use it even in of intense distress, by becoming mindful of the actual experience as an observer, using mindful breathing and focussing our attention on the breathing, listening to the distressing thoughts mindfully,recognising them as merely thoughts, breathing with them, allowing them to happen without believing them or arguing with them. If thoughts are too strong or loud, then we can move our attention to ourbreath, the body, or to sounds around us. Fausto Pop uses the example of waves to help explain mindfulness. Think of your mind as the surface of a sharma or an ocean. There are always waveson the water, sometimes big, sometimes small, sometimes almost imperceptible. The water's waves are churned up by winds,which come and go and vary in direction and intensity, just as do the winds of stressand change in our lives, which stir up waves in our mind. It's possible to find retirement from much of the wind thatagitates the mind. Whatever we might do to prevent them, the winds of life and of the mind blow. You can't stop the waves, but you can learn to surf (Donn 2004 Associated attestation - Yen Broderick LICSW - 01/12/2023 3:50 PM CDT Service Performed and Documented by Clinical Trainee Note reviewed and clinical supervision by MARILU Vernon,CANDLE POURER, [facility], January 12, 2023 * Jazmyn Benjamin RN - 01/10/2023 7:05 PM CDT DEC at bedside * Nai Castillo RN - 01/10/2023 6:39 PM CDT DEC at bedside. Pt reporting increased sx anxiety. Therapeutic communication, breathing exercises, aromatherapy, and an ice pack provided. Pt willing to continue to try to speak with DEC * Sarah Redmond MD - 01/10/2023 4:12 PM CDT Tele-PIT/Intake Evaluation Video-Visit Details Type of service: Video Visit Video Start Time (time video started): 4:12 PM Video End Time (time video stopped): 4:12 PM Originating Location (pt. Location): [facility] Distant Location (provider location): [facility]. Mode of Communication: Video Conference via [employer] Patient verbally consented to [employer] televisit. History: Yadi Roblero is a 22 year old female who comes with complaint of near syncope. She reports she waswalking around the house when it occurred. She also reported a chest pain that was sharp in her heart when it occurred. It feels sore now but not as painful. She also has extremely high anxiety. Has had panic attack but not this severe. No history of cancer, DVT/PE, hemoptysis, smoking, hormone use, lower extremity symptoms, recent immobilizations. She was out drinking last night and thinks that may have contributed. Nauseated but no vomiting. Exam: Patient Vitals for the past 24 hrs: BP Temp Temp src Pulse Resp SpO2 01/10/23 1345 (!) 160/114 97.6 ??F (36.4 ??C) Temporal 99 22 99 % General: Well-nourished, no acute distress Respiratory: No respiratory distress CV: Normal rate Skin: Warm, dry. No rashes or petechiae Neuro: Alert and oriented to person/place/time Psychiatric: Normal affect Appropriate interventions for symptom management were initiated if applicable. Appropriate diagnostic tests were initiated if indicated. Important information for subsequent clinician: PERC negative. Ordered labs, CXR, fluids and zofran. I briefly evaluated the patient and developed an initial plan of care. I discussed this plan and explained that this brief interaction does not constitute a full evaluation. Patient/family understands that they should wait to be fully evaluated and discuss any test results with another clinician prior to leaving the hospital. Sarah Redmond MD 01/10/23 5120 * Maddie Broderick 01/10/2023 3:26 PM CDT Pt. Eating chips and drinking in triage * Isabel Ahuja RN - 01/10/2023 1:41 PM CDT Patient brought in via EMS from home. She reports feeling lightheaded and then started to panic. She reports a sharp feeling in her chest. She reports her therapist recommended she come to the ED. History of anxiety. ABCs intact, A&Ox4. Triage Assessment Row Name 01/10/23 1341 Triage Assessment (Adult) Airway WDL WDL Respiratory WDL Respiratory WDL WDL Skin Circulation/Temperature WDL Skin Circulation/Temperature WDL WDL Cardiac WDL Cardiac WDL WDL Peripheral/Neurovascular WDL Peripheral Neurovascular WDL WDL Cognitive/Neuro/Behavioral WDL Cognitive/Neuro/Behavioral WDL WDL * Rey Hernandez PA-C - 01/10/2023 1:35 PM CDT History Chief Complaint: Anxiety HPI Yadi Roblero is a 22 year old female with history of anxiety not on medication but following with a therapist who presents for evaluation of anxiety and panic. The patient states that she did have afew alcoholic beverages last night into the early part of the morning. When she woke up this morning she was feeling more anxious than usual with episodes of panic and feeling a tightness in her chest and tingling throughout her whole body. She felt lightheaded like she was going to pass out prompting her presentation here. Her heart was pounding at the time. Patient has had panic attacks before but today seemed worse than normal. She does not take any medication for anxiety. She denies any thoughts of harming herself or others. She does not drink alcohol daily. No longer having any chest pain or feeling like she is going to pass out. No history of cancer, DVT or PE, hemoptysis, smoking, ongoing hormone use, leg swelling, or recent surgeries/hospitalizations. Denies any abdominal pain. Her physical symptoms are better at this time but she still feels very anxious and frantic. She does note that she has been seen several times before for similar symptoms. Independent Historian: none Review of External Notes: Reviewed ED notes in the last year from Drs. Everardo Mendez and Esme where patient was seenfor chest pain shortness of breath dizziness with negative work-ups including D-dimers. I also reviewed Dr. Bennett primary care note from 07/05/2022 where patient endorsed review of systems positive for chest pain and dizziness. Medications: norethindrone-ethinyl estradiol (JUNEL FE 06/11) 1-20 MG-MCG tablet norethindrone-ethinyl estradiol (MICROGESTIN ) 1.5-30 MG-MCG tablet Past Medical History: Past Medical History: Diagnosis Date Abnormal Pap smear of cervix 06/28/2019 Anxiety Blood type AB+ Past Surgical History: Past Surgical History: Procedure Laterality Date NO HISTORY OF SURGERY Physical Exam Patient Vitals for the past 24 hrs: BP Temp Temp src Pulse Resp SpO2 01/10/231999 132/79 -- -- 102 -- 99 % 01/10/23 1900 (!) 146/87 -- -- 82 -- 100 % 01/10/23 1800 (!) 156/99 -- -- 108 -- 100 % 01/10/23 1345 (!) 160/114 97.6 ??F (36.4 ??C) Temporal 99 22 99 % Physical Exam General: Awake, alert, non-toxic. Anxious appearing and tearful. Head: Scalp is NC/AT Eyes: Conjunctiva normal, PERRL ENT: The external nose and ears are normal. Oropharynx clear, uvula midline. Neck: Normal range of motion without rigidity. CV: Regular rate and rhythm No pathologic murmur, rubs, or gallops. Resp: Breath sounds are clear bilaterally Non-labored, no retractions or accessory muscle use Abdomen: Abdomen is soft, no distension, no tenderness, no masses. MS: No lower extremity edema/swelling. Skin: Warm and dry, No rash or lesions noted. Neuro: Alert and oriented. GCS 15 Moves all extremities normal. No facial asymmetry. Gait normal. Psych: Tearful. Cooperative and otherwise pleasant and appropriate. No pressured speech. Does not appear to be responding to internal stimuli. Emergency Department Course ECG results from 01/10/23 EKG 12-lead, tracing only Value Systolic Blood Pressure Diastolic Blood Pressure Ventricular Rate 74 Atrial Rate 74 DC Interval 140 QRS Duration 104 QT 392 QTc 435 P Magnolia 42 R AXIS 44 T Magnolia 31 Interpretation ECG Sinus rhythm Normal ECG When compared with ECG of 12-DEC-2022 20:08, No significant change was found Imaging: Chest XR, PA & LAT Final Result IMPRESSION: No acute abnormality. No focal pulmonary infiltrate, pleural effusion, or pneumothorax. The cardiac size and mediastinal contours appear within normal limits. Report per radiology Laboratory: Labs Ordered and Resulted from Time of ED Arrival to Time of ED Departure BASIC METABOLIC PANEL - Abnormal Result Value Sodium 138 Potassium 3.7 Chloride 102 Carbon Dioxide (CO2) 24 Anion Gap 12 Urea Nitrogen 6.8 Creatinine 0.65 Calcium 9.8 Glucose 117 (*) GFR Estimate >90 TROPONIN T, HIGH SENSITIVITY - Normal Troponin T, High Sensitivity <6 HCG QUALITATIVE - Normal hCG Serum Qualitative Negative MAGNESIUM - Normal Magnesium 2.0 CBC WITH PLATELETS AND DIFFERENTIAL WBC Count 6.5 RBC Count 4.75 Hemoglobin 13.1 Hematocrit 41.0 MCV 86 MCH 27.6 MCHC 32.0 RDW 12.9 Platelet Count 281 % Neutrophils 78 % Lymphocytes 15 % Monocytes 7 % Eosinophils 0 % Basophils 0 % Immature Granulocytes 0 NRBCs per 100 WBC 0 Absolute Neutrophils 5.1 Absolute Lymphocytes 1.0 Absolute Monocytes 0.5 Absolute Eosinophils 0.0 Absolute Basophils 0.0 Absolute Immature Granulocytes 0.0 Absolute NRBCs 0.0 Emergency Department Course & Assessments: Interventions: Medications LORazepam (ATIVAN) tablet 1 mg (1 mg Oral $Given 01/10/231742) 0.9% sodium chloride BOLUS (0 mLs Intravenous Stopped 01/10/231951) Assessments: 1729 I performed an evaluation of the pt as above Independent Interpretation (X-rays, CTs, rhythm strip): I independently reviewed pt chest x-ray and note no evidence of infiltrate, pneumothorax or mediastinal widening. Consultations/Discussion of Management or Tests: I spoke to Howard DE LA ROSA who evaluated the pt. He will set her up with outpatient medica Social Determinants of Health affecting care: Stress/Adjustment Disorders Disposition: The patient was discharged to home. Impression & Plan [facility] Diagnoses: none Medical Decision Makin-year-old female who presents for evaluation of panic attacks/anxiety with associated chest tightness and lightheadedness. Broad differential considered. Medical work-up here is reassuring. EKG is normal without evidence of ischemia or arrhythmia. She is well-appearing and vitally stable. High-sensitivity troponin is undetectable. She is low risk by Wells criteria and PERC negative multiple prior similar presentations with negative D-dimer very low suspicion for PE. Chest x-ray clear no evidence of mediastinal widening resolved symptoms very low suspicion for aortic dissection. Neurologic exam is normal there is nothing to suggest stroke etc. Basic labs unremarkable. She is not . No evidence of drug intoxication withdrawal or electrolyte abnormality. Hemoglobin normal. Afebrile with normal white blood cell count no infectious symptoms. Patient felt better after dose of Ativan here did speak with DEC head of human resources who was able to set her up with outpatient mental health prescribershe already has a therapist no suicidal or homicidal ideation no indication for involuntary hold feels comfortable managing her symptoms at home RJ is in agreement with this. She will return if she feels unsafe has new or worsening symptoms. She will otherwise follow-up with her PCP. Critical Care time: was 0 minutes for this patient excluding procedures. Diagnosis: ICD-10-CM 1. Panic attack F41.0 2. Anxiety F41.9 3. Atypical chest pain R07.89 Discharge Medications: Discharge Medication List as of 01/10/2023 8:25 PM 01/10/2023 Rey Hernandez, * Rey Hernandez PA-C 01/10/23 5671 documented in this encounter Miscellaneous Notes * Care Plan - Howard Roper - 01/10/2023 8:39 PM CDT Attempts to contact mother, Ashli Roblero at [phone] went unanswered. Number is no longer in service. Patient had no other number. No other collateral was able to be obtained while patient was inED. documented in this encounter Plan of Treatment Upcoming Encounters Date Type Department Care Team (Late st Contact Info) Description 08/03/2023 1:00 PM CDT Office Visit [address] [address] [place] [address] [place] [address] documented as of this encounter Procedures Procedure Name Priority Date/Time Associated Diagnosis Comments EKG 12-LEAD, TRACING ONLY STAT 01/10/2023 4:49 PM CDT XR CHEST 2 VIEWS STAT 01/10/2023 4:30 PM CDT EXTRA TUBE STAT 01/10/2023 2:20 PM CDT EXTRA RED TOP TUBE STAT 01/10/2023 2: 20 PM CDT EXTRA BLUE TOP TUBE STAT 01/10/2023 2 :20 PM CDT CBC WITH PLATELETS AND DIFFERENTIAL STAT 01/10/2023 2:20 PM CDT TROPONIN T, HIGH SENSITIVITY STAT 01/10/2023 2:20 PM CDT CBC WITH PLATELETS & DIFFERENTIAL STAT 01/10/2023 2:20 PM CDT MAGNESIUM STAT 01/10/2023 2:20 PM CDT HCG QUALITATIVE STAT 01/10/2023 2:20 PM CDT BASIC METABOLIC PANEL STAT 01/10/2023 2:20 PM CDT documented in this encounter Results * EKG 12-lead, tracing only (01/10/2023 4:49 PM CDT) Systolic Blood Pressure mmHg RADIOLOGY RESULTS Diastolic Blood Pressure mmHg RADIOLOGY RESULTS Ventricular Rate 74 BPM RAD IOLOGY RESULTS Atrial Rate 74 BPM RADIOLOG Y RESULTS DC Interval 140 ms RADIOLOG Y RESULTS QRS Duration 104 ms RADIOLO GY RESULTS QT 392 ms RADIOLOGY RESULTS QTc 435 ms RADIOLOGY RESULTS P Magnolia 42 degrees RADIOLOGY RESULTS R AXIS 44 degrees RADIOLOGY RESULTS T Magnolia 31 degrees RADIOLOGY RESULTS Interpretation ECG Sinus rhythm Normal ECG When compared with ECG of 12-DEC-2022 20:08, No significant change was found Confirmed by - EMERGENCY ROOM, PHYSICIAN ([id number]), photographic editor MARJ KERR ([id number]) on 01/11/2023 7:17:43 AM RADIOLOGY RESULTS 01/10/2023 4:49 PM CDT 01/11/2023 7:17 AM CDT Rey Hernandez PA-C ECG ORDERABLE S RADIOLOGY RESULTS * Chest XR, PA & LAT (01/10/2023 4:30 PM CDT) Anatomical Region Laterality Modality Chest Computed Radiogr aphy 01/10/2023 4:30 PM CDT Impressions 01/10/2023 4:48 PM CDT IMPRESSION: No acute abnormality. No focal pulmonary infiltrate, pleural effusion, or pneumothorax. The cardiac size and mediastinal contours appear within normal limits. Narrative 01/10/2023 4:48 PM CDT EXAM: XR CHEST 2 VIEWS LOCATION: [facility] DATE: 01/10/2023 INDICATION: chest pain, near syncope COMPARISON: 12/12/2022. Procedure Note Diego Knight MD - 01/10/2023 EXAM: XR CHEST 2 VIEWS LOCATION: [facility] DATE: 01/10/2023 INDICATION: chest pain, near syncope COMPARISON: 12/12/2022. IMPRESSION: No acute abnormality. No focal pulmonary infiltrate, pleural effusion, or pneumothorax. Thecardiac size and mediastinal contours appear within normal limits. Sarah Redmond MD IMG DIAGNOSTIC IMAGI NG ORDERABLES * Magnesium (01/10/2023 2:20 PM CDT) Magnesium 2.0 1.7 - 2.3 mg/dL 01/10/2023 4:42 PM CDT [facility] Blood STRUCTURE OF RIGHT UPPER LIMB / Unknown Venipuncture / Unknown 01/10/2023 2:20 PM CDT 01/10/2023 2:26 PM CDT Sarah Redmond MD LAB - BLOOD ORDERABL ES Performing Organization Address [facility]/ZIP Co de Phone Number [facility] [address] Lab (1st floor, no room number) [place] [address], [facility] [phone] * HCG QUALitative (blood) (01/10/2023 2:20 PM CDT) hCG Serum Qualitative Negative Negative SHARRON 01/10/2023 4:31 PM CDT [facility] Comment:This test is for scr eening purposes. Results should be interpreted along with the clinical picture. Confirmation testing is available if warranted by ordering [id number], HCG Quantitative . Blood STRUCTURE OF RIGHT UPPER LIMB / Unknown Venipuncture / Unknown 01/10/2023 2:20 PM CDT 01/10/2023 2:26 PM CDT Sarah Redmond MD LAB - BLOOD ORDERABL ES Performing Organization Address [facility]/ZIP Co de Phone Number [facility] [address] Lab (1st floor, no room number) [place] [address], [facility] [phone] * Troponin T, High Sensitivity (01/10/2023 2:20 PM CDT) Troponin T, High Sensitivity <6 <=14 ng/L 01/10/2023 4:41 PM CDT [facility] Comment: Either a High Sensitivity Troponin T baseline (0 hours) value = 100 ng/L, or an increase in High Sensitivity Troponin T = 7 ng/L at 2 hours compared to 0 hours (2-0 hours), suggests myocardial injury, and urgent clinical attention is required. ?? If the 2-0 hours increase is <7 ng/L, a High Sensitivity Troponin T result above gender-specific reference ranges warrants further evaluation. Recommendations for further evaluation include correlation with clinical decision-making tool (e.g., HEART), a 3rd High Sensitivity Troponin T test 2 hours after the 2nd (a 20% change from baseline would represent concern), admission for observation, close PCC/cardiology follow-up, or urgent outpatient provocative testing. Blood STRUCTURE OF RIGHT UPPER LIMB / Unknown Venipuncture / Unknown 01/10/2023 2:20 PM CDT 01/10/2023 2:26 PM CDT Sarah Redmond MD LAB - BLOOD ORDERABL ES [facility] [address] Lab (1st floor, no room number) [place] [address], [place] [phone] * Extra Red Top Tube (01/10/2023 2:20 PM CDT) Hold Specimen [facility] 01/10/2023 3:32 PM CDT LABORATORY Blood STRUCTURE OF RIGHT UPPER LIMB / Unknown Venipuncture / Unknown 01/10/2023 2:20 PM CDT 01/10/2023 2:26 PM CDT Rey Hernandez PA-C LAB - BLOOD O RDERAHOLLAND [facility] [address] Lab (1st floor, no room number) [place] [address], [place] [phone] * Extra Blue Top Tube (01/10/2023 2:20 PM CDT) Hold Specimen [facility] 01/10/2023 3:32 PM CDT LABORATORY Blood STRUCTURE OF RIGHT UPPER LIMB / Unknown Venipuncture / Unknown 01/10/2023 2:20 PM CDT 01/10/2023 2:26 PM CDT Rey Hernandez PA-C LAB - BLOOD O RDERAHOLLAND [facility] [address] Lab (1st floor, no room number) [place] [address], [place] [phone] * CBC with platelets and differential (01/10/2023 2:20 PM CDT) WBC Count 6.5 4.0 - 11.0 10e3/uL 01/10/2023 2:30 PM CDT [facility] RBC Count 4.75 3.80 - 5.20 10e6/uL 01/10/2023 2:30 PM CDT [facility] Hemoglobin 13.1 11.7 - 15.7 g/dL 01/10/2023 2:30 PM CDT [facility] Hematocrit 41.0 35.0 - 47.0 % 01/10/2023 2:30 PM CDT [facility] MCV 86 78 - 100 fL 01/10/2023 2:30 PM CDT [facility] MCH 27.6 26.5 - 33.0 pg 01/10/2023 2:30 PM CDT [facility] MCHC 32.0 31.5 - 36.5 g/dL 01/10/2023 2:30 PM CDT [facility] RDW 12.9 10.0 - 15.0 % 01/10/2023 2:30 PM CDT [facility] Platelet Count 281 150 - 450 10e3/uL 01/10/2023 2:30 PM CDT [facility] % Neutrophils 78 % 01/10/2023 2:30 PM CDT [facility] % Lymphocytes 15 % 01/10/2023 2:30 PM CDT [facility] % Monocytes 7 % 01/10/2023 2:30 PM CDT [facility] % Eosinophils 0 % 01/10/2023 2:30 PM CDT [facility] % Basophils 0 % 01/10/2023 2:30 PM CDT [facility] % Immature Granulocytes 0 % 01/10/2023 2:30 PM CDT [facility] NRBCs per 100 WBC 0 <1 /100 023 2:30 PM CDT [facility] Absolute Neutrophils 5.1 1.6 - 8.3 10e3/uL 01/10/2023 2:30 PM CDT [facility] Absolute Lymphocytes 1.0 0.8 - 5.3 10e3/uL 01/10/2023 2:30 PM CDT [facility] Absolute Monocytes 0.5 0.0 - 1.3 10e3/uL 01/10/2023 2:30 PM CDT [facility] Absolute Eosinophils 0.0 0.0 - 0.7 10e3/uL 01/10/2023 2:30 PM CDT [facility] Absolute Basophils 0.0 0.0 - 0.2 10e3/uL 01/10/2023 2:30 PM CDT [facility] Absolute Immature Granulocytes 0.0 <=0.4 10e3/uL 01/10/2023 2:30 PM CDT [facility] Absolute NRBCs 0.0 10e3/uL 01/10/2023 2:30 PM CDT [facility] Blood STRUCTURE OF RIGHT UPPER LIMB / Unknown Venipuncture / Unknown 01/10/2023 2:20 PM CDT 01/10/2023 2:26 PM CDT Rey Hernandez PA-C LAB - BLOOD O RDERABLES [facility] [address] Lab (1st floor, no room number) [place] [address], [facility] [phone] * (ABNORMAL) Basic metabolic panel (BMP) (01/10/2023 2:20 PM CDT) Sodium 138 136 - 145 mmol/L 01/10/2023 2:47 PM CDT LABORATORY Potassium 3.7 3.4 - 5.3 mmol/L 01/10/2023 2:47 PM CDT LABORATORY Chloride 102 98 - 107 mmol/L 01/10/2023 2:47 PM CDT LABORATORY Carbon Dioxide (CO2) 24 22 - 29 mmol/L 01/10/2023 2:47 PM CDT LABORATORY Anion Gap 12 7 - 15 mmol/L 01/10/2023 2:47 PM CDT LABORATORY Urea Nitrogen 6.8 6.0 - 20.0 mg/dL 01/10/2023 2:47 PM CDT LABORATORY Creatinine 0.65 0.51 - 0.95 mg/dL 01/10/2023 2:47 PM CDT LABORATORY Calcium 9.8 8.6 - 10.0 mg/dL 01/10/2023 2:47 PM CDT LABORATORY Glucose 117(H) 70 - 99 mg/dL 01/10/2023 2:47 PM CDT LABORATORY GFR Estimate >90 >60 mL/min/1.7 3m2 01/10/2023 2:47 PM CDT LABORATORY Blood STRUCTURE OF RIGHT UPPER LIMB / Unknown Venipuncture / Unknown 01/10/2023 2:20 PM CDT 01/10/2023 2:26 PM CDT Rey Hernandez PA-C LAB - BLOOD O RDERABLES LABORATORY [facility] [address] Lab (1st floor, no room number) [place] [address], [facility] [phone] documented in this encounter Visit Diagnoses Diagnosis Panic attack Panic disorder without agoraphobia Anxiety Anxiety state, unspecified Atypical chest pain Other chest pain documented in this encounter Administered Medications Inactive Administered Medications - up to 3 most recent administrations Medication Order MAR Action Action Date Dose Rate Site 0.9% sodium chloride BOLUS Intravenous, 1,000 mL, ONCE, at 2,000 mL/hr, Administer over 30 Minutes, On Tue01/10/23 at 1800, For 1 dose $New Bag 01/10/2023 6:06 PM CDT 1,000 mLs 2000 mL/hr LORazepam (ATIVAN) tablet 1 mg 1 mg, Oral, ONCE, On Tue01/10/23 at 1735, For 1 dose $Given 01/10/2023 5:43 PM CDT 1 mg documented in this encounter Active and Recently Administered Medications Times are shown in CDT. Scheduled Medication Order 01/08/2023 01/09/2023 01/10/2023 0.9% sodium chloride BOLUS (COMPLETED) Intravenous, 1,000 mL, ONCE, at 2,000 mL/hr, Administer over 30 Minutes, On Tue01/10/23 at 1800, For 1 dose 1806 ($New Bag - Pro vider: Tiffany Barrientos RN)1951 (Stopped - Provider: Jazmyn Benjamin RN) LORazepam (ATIVAN) tablet 1 mg (COMPLETED) 1 mg, Oral, ONCE, On Tue01/10/23 at 1735, For 1 dose 1743 ($Given - Provi sera: Tiffany Barrientos RN) documented in this encounter Additional Health Concerns Assessment Noted Time PHQ-9 Depression Total Score: 5 04/30/20 20 3:13 PM RESERVATION CLERK documented as of this encounter Care Teams Elevator Mechanic Apprentice Relationship Specialty [place] [address] [place] [address] PCP - General Family Practice 11/27/18 [place] [address] [place] [address] Assigned PCP 05/11/20 documented as of this encounter
--- OUTSIDE RECORDS SUMMARY | 2023-06-22 15:21 | XMS_ITS | Encounter Summary ---
Author Name Unknown Organization [facility] Address [address] [place] [address] Care Team Providers Care Inspector Casing Name Role Phone Leslie Silvestre MD Primary Care Provider [phone] Leslie Silvestre MD Unavailable [phone] Encounter Details Date Type Department Care Team (Latest Contact Info) Description 12/27/2022 Travel Social History Tobacco Use Types Packs/Day [...] How often do you attend chur or taoist services? Never 07/05/2022 Do you belong to [...] Answer Date Recorded PHQ-2 Score 2 07/05[facility]2022 [facility] - Occupational Stress Questionnaire Answer Date [...] a detention (including now)? Patient refused 07/05/2022 [place] Depression Scale Answer Date Recorded [place] Depression Score 0 12/07/2018 Last EPDS Self Harm Result Not on file 12/07 Education Answer Date Recorded What is the highest level of school you have completed or the highest degree you have received? 12th grade 06/28/2019 Sex and Gender Information Value Date Recorded Sex Assigned at Female 06/28/2018 11:22 AM MONTESSORI PARAPROFESSIONAL Gender Identity Female 06/28/2018 11:22 AM MONTESSORI PARAPROFESSIONAL Sexual Orientation Not on file COVID-19 Exposure [...] Description 08/03/2023 1:00 PM CDT Office Visit [facility] [id number] [place] [phone] [place] [id number] [place] [address] documented as of this encounter Visit Diagnoses Not on filedocumented in this encounter Additional Health Concerns Assessment Noted Time PHQ-9 Depression Total Score: 5 04/30/20 20 3:13 PM MONTESSORI PARAPROFESSIONAL documented as of this encounter Care Teams Inspector Casing Relationship Specialty [place] [address] [place] [address] PCP - General Family Practice 11/27/18 [place] [address] [place] [address] Assigned PCP 05/11/20 documented as of this encounter
--- OUTSIDE RECORDS SUMMARY | 2023-06-22 15:21 | XMS_ITS | Encounter Summary ---
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 Diagnoses Irregular menses iV La PA-C [address] [place] [address] Cr Ballistician [address] [place] [address] Referral ID Status Reason Start Date Expiration Date V isits Requested Visits Authorized [id number] Referral NOT Required 01/31/2023 01/31/2024 1 1 Question Answer 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 Call member services at your health plan with any benefit or coverage questions. Please call to schedule your appointment * Diagnostic Imaging Ultrasound (Routine) - Pending Review Specialty Diagnoses / Procedures Referred By Abelardo farr Referred To Contact Radiology. 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 Never 07/05/2022 Do you belong to any clubs o r organizations such as episcopal groups, unions, fraternal or athletic groups, or [...] Answer Date Recorded PHQ-2 Score 5 01/31/2023 [facility] Occupat ional [facility] - Occupational Stress Questionnaire Answer Date [...] place to sleep or slept in a residential (including now)? Patient refused 07/05/2022 [place] Depression Scale Answer Date Recorded [place] Depression Score 0 12/07/2018 Last EPDS Self Harm Result Not on file 12/07 Education Answer Date Recorded What is the highest level of school you have completed or the highest degree you have received? 12th grade 06/28/2019 Sex and Gender Information Value Date Recorded Sex Assigned at Female 06/28/2018 11:22 AM CONTACT LENS EDGE BUFFER Gender Identity Female 06/28/2018 11:22 AM CONTACT LENS EDGE BUFFER Sexual Orientation Not on file COVID-19 Exposure Response Date Recorded In the last 10 days, have yo u been in contact with someone who was confirmed or suspected to have Coronavirus/COVID-19? No / Unsure 01/31/2023 9:42 AM CDT documented as of this encounter Last Filed Vital Signs Vital Sign Reading Time Taken Comments Blood Pressure 134/84 01/31/2023 9:58 AM CDT Pulse 80 01/31/2023 9:58 AM CDT Temperature 36.8 ??C (98.2 ??F) 01/31/2023 9:58 AM CD T Respiratory Rate 16 01/31/2023 9:58 AM CDT Oxygen Saturation 98% 01/31/2023 9:58 AM CDT Inhaled Oxygen Concentration - - Weight 54.4 kg (120 lb) 01/31/2023 9:58 AM CDT Height 160 cm (5' 3) 01/31/2023 9:58 AM CDT Body Mass Index 21.26 01/31/2023 9:58 AM CDT documented in this encounter Patient Instructions * Patient Instructions* Vi La PA-C - 01/31/2023 10:00 AM CDT Resources: [facility] [phone] Support Group: AA/NA and Sponsor/support. CrisisIntervention: 993.940.4676 or 068-459-6342 (TTY: 491.585.6202). Call anytime for help. National [place] on Mental Illness (www.[place].margaret.org): 576.332.6227 or 243-080-5519. Alcoholics Anonymous (www.al coholics-anonymous.org): Check your phone book for your local chapter. Suicide Awareness Voices of Education (www.save.org): 117-737-KCFL (7283) National Suicide Prevention Line (www.mentalhealthmn.org): 608-373-ORXR (7622) Mental Health Consumer/Survivor Network of [place] (www.mhcsn.net): 563.942.5061 or 008-105-0674. MentalHealth Association of [place] (www.mentalhealth.org): 489.327.9845 or 713-401-8524 Substance Abuse and Mental Health Services. (www.[facility].gov) * Attachments The following attachments cannot be sent through Care Everywhere. * Antidepressants: General Info (Finnish) * Citalopram Oral Tablet 10 mg - 20 mg - 40 mg (Finnish) * Sertraline HCl Oral Tablet 25 mg - 50 mg - 100 mg (Finnish) documented in this encounter Progress Notes * Vi La PA-C - 01/31/2023 10:00 AM CDT Assessment & Plan (F41.1) KERWIN (generalized anxiety disorder) (primary encounter diagnosis) (F33.1) Moderate episode of recurrent major depressive disorder (H) Poorly controlled anxiety and depression. Patient has been in therapy for the past 3 months but feels she is really struggling with primarily anxiety but also depression symptoms. We discussed medications today during her visit but she would like to do some research prior to starting a medication, information provided in her paperwork. We also discussed lab check to ensure no underlying abnormalities that could be contributing to her anxiety. She has a therapist, plan to continue to follow withthem. She was provided with crisis resources in her discharge paperwork. Follow up in 1 month afterstarting medication. Plan: TSH with free T4 reflex, Comprehensive metabolic panel (BMP + Alb, Alk Phos, ALT, AST, Total. Bili, TP), Vitamin D Deficiency, CBC with platelets, Hemoglobin A1c (N92.6) Irregular menses Has had irregular menses since initial onset. Was on OCP in the past which seemed to help, has beenoff them for ~ 1 year. She is wondering about repeat transvaginal ultrasound for known ovarian cysts, ordered today. Also would like referral to Property Management Bookkeeper to discuss any testing for irregular menses. Referral provided today. Plan: US Pelvic Complete with Transvaginal, Ballistician Referral Depression Screening Follow Up 01/31/2023 10:32 AM PHQ PHQ-9 Total Score 19 Q9: Thoughts of better off /self-harm past 2 weeks Several days Follow Up Follow Up Actions Taken Crisis resource information provided in the After Visit Summary Discussed medications and information provided to the patient. She is scheduled to talk with her therapist, continue with these appointments. Discussed the following ways the patient can remain in a safe environment: be around others Follow up in 1 month after starting medication for anxiety/depression. 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 She exercises with enough effort to increase her heart rate 3 or less days per week. She is taking medications regularly. Abnormal Menses: Irregular periods since she started having periods. On control was regular but has been off the OCP for approximately a year and periods are now back to being irregular. Has had ovarian cysts in the past-last ultrasound was in June which showed complex left ovarian cyst. Has never had an ovarian cyst rupture that she is aware. Has never seen W[facility]ER. Mental Health: Has struggled with anxiety and depression but just started seeking help for the in the past year. She has been in talk therapy for the past 3 months which she feels will be helpful butright now her anxiety and depression are really bothersome so she is wondering about medication options as well. Several individuals in her family struggle with anxiety and depression as well. She states she occasionally feels she would be better off not here but she has no thoughts of self harm or any plan. 04/30/2020 3:07 PM 01/31/2023 9:46 AM 01/31/2023 10:32 AM PHQ PHQ-9 Total Score 5 9 19 Q9: Thoughts of better off /self-harm past 2 weeks Not at all Several days Several days F/U: Thoughts of suicide or self-harm No F/U: Safety concerns No 04/30/2020 3:07 PM 01/31/2023 9:46 AM 01/31/2023 10:32 AM KERWIN-7 SCORE Total Score 3 (minimal anxiety) 8 (mild anxiety) Total Score 3 8 15 Review of Systems Constitutional, HEENT, cardiovascular, pulmonary, gi and gu systems are negative, except as otherwise noted. Objective BP 134/84 (BP Location: Right arm, Patient Position: Sitting, Cuff Size: Adult Regular) Pulse 80 Temp 98.2 ??F (36.8 ??C) (Oral) Resp 16 Ht 1.6 m (5' 3) Wt 54.4 kg (120 lb) LMP 01/09/2023 (Approximate) SpO2 98% BMI 21.26 kg/m?? Body mass index is 21.26 kg/m??. Physical Exam GENERAL: healthy, alert and no distress RESP: lungs clear to auscultation - no rales, rhonchi or wheezes CV: regular rate and rhythm, normal S1 S2, no S3 or S4, no murmur, click or rub MS: no gross musculoskeletal defects noted, no edema documented in this encounter Plan of Treatment Upcoming Encounters Date Type Department Care Team (Late st Contact Info) Description 08/03/2023 1:00 PM CDT Office Visit [address] [phone] Leslie Silvestre MD [address] [place] [address] Scheduled Referrals Name Type Priority Associated Diagnoses Orde r Schedule Ballistician Referral Referral Routine: Next available opening Irregular menses Expected: 01/31/2023 (Approximate), Expires: 02/01/2024 documented as of this encounter Procedures Procedure Name Priority Date/Time Associated Diagnosis Comments VITAMIN D DEFICIENCY SCREENING Routine 01/31/2023 10:43 AM CDT KERWIN (generalized anxiety disorder) Moderate episode of recurrent major depressive disorder (H) TSH WITH FREE T4 REFLEX Routine 01/31/2023 10:43 AM CDT KERWIN (generalized anxiety disorder) Moderate episode of recurrent major depressive disorder (H) HEMOGLOBIN A1C Routine 01/31/2023 10:43 AM CDT KERWIN (generalized anxiety disorder) Moderate episode of recurrent major depressive disorder (H) COMPREHENSIVE METABOLIC PANEL Routine 01/31/2023 10:43 AM CDT KERWIN (generalized anxiety disorder) Moderate episode of recurrent major depressive disorder (H) CBC WITH PLATELETS Routine 01/31/2023 10 :43 AM CDT KERWIN (generalized anxiety disorder) Moderate episode of recurrent major depressive disorder (H) documented in this encounter Results * US Pelvic Complete with Transvaginal (04/06/2023 12:46 PM CONTACT LENS EDGE BUFFER) Anatomical Region Laterality Modality Abdomen/Pelvis Ultrasound Narrative 04/06/2023 2:37 PM CONTACT LENS EDGE BUFFER [facility] Obstetrics and Gynecology ?? ULTRASOUND - PELVIC MAINSPRING WINDER AND OILER- Transabdominal and Transvaginal Referring MD: Vi La [...] ultrasound. Issac Islas MD Obstetrics & Gynecology [facility] Note: Federal law requires the release [...] days. Vi La PA-C IMG US ORDERABLES * Hemoglobin A1c (01/31/2023 10:43 AM CDT) Hemoglobin A1C 5.4 0.0 - 5.6 % 01/31/2023 10:49 AM CDT [facility] Comment: Normal <5.7% Prediabetes 5.7-6.4% ?? Diabetes 6.5% or higher Note: Adopted from ADA consensus guidelines. Blood BLOOD SPECIMEN / Unknown Venipuncture / Unknown 01/31/2023 10:43 AM CDT 01/31/2023 10:43 AM CDT Vi La PA-C LAB - BLOOD ORDERABL ES [facility]ATORY [facility] [place] [facility] [address] [facility] (no room number, 1st floor of clinic) [place] [address], [facility] [phone] * CBC with platelets (01/31/2023 10:43 AM CDT) WBC Count 4.2 4.0 - 11.0 10e3/uL 01/31/2023 11:00 AM CDT [facility] RBC Count 4.49 3.80 - 5.20 10e6/uL 01/31/2023 11:00 AM CDT [facility] Hemoglobin 12.7 11.7 - 15.7 g/dL 01/31/2023 11:00 AM CDT [facility] Hematocrit 38.2 35.0 - 47.0 % 01/31/2023 11:00 AM CDT [facility] MCV 85 78 - 100 fL 01/31/2023 11:00 AM CDT [facility] MCH 28.3 26.5 - 33.0 pg 01/31/2023 11:00 AM CDT [facility] MCHC 33.2 31.5 - 36.5 g/dL 01/31/2023 11:00 AM CDT [facility] RDW 12.0 10.0 - 15.0 % 01/31/2023 11:00 AM CDT [facility] Platelet Count 256 150 - 450 10e3/uL 01/31/2023 11:00 AM CDT [facility] Blood BLOOD SPECIMEN / Unknown Venipuncture / Unknown 01/31/2023 10:43 AM CDT 01/31/2023 10:43 AM CDT Vi La PA-C LAB - BLOOD ORDERABL ES [facility] LAB[facility] [id number] [place] [address] (no room number, 1st floor of clinic) [place] [address], [facility] [phone] * Vitamin D Deficiency (01/31/2023 10:43 AM CDT) Vitamin D, Total (25-Hydroxy) 26 20 - 75 ug/L 02/01/2023 1:17 PM CDT [facility] Blood BLOOD SPECIMEN / Unknown Venipuncture / Unknown 01/31/2023 10:43 AM CDT 01/31/2023 10:43 AM CDT Narrative [facility] - 02/01/2023 1:17 PM CDT Season, race, dietary intake, and treatment affect the concentration of 20-zphzgsg-Hfgnjcx D. Values may decrease during winter months and increase during summer months. Values 20-29 ug/L may indicate Vitamin D insufficiency and values <20 ug/L may indicate Vitamin D deficiency. Vitamin D determination is routinely performed by an immunoassay specific for 25 hydroxyvitamin D3. ??If an individual is on vitamin D2(ergocalciferol) supplementation, please specify 25 [place] vitamin D2 and D3 level determination by LCMSMS test VITD23. Vi La PA-C LAB - BLOOD ORDERABL ES [facility]PROT/ENDO [facility]Prot[facility]Endo [address] [facility] [address] [facility], [address] [place] [address], [facility] [phone] * Comprehensive metabolic panel (BMP + Alb, Alk Phos, ALT, AST, Total. Bili, TP) (01/31/2023 10:43 AMCDT) Sodium 140 136 - 145 mmol/L 01/31/2023 9:56 PM CDT [facility] Potassium 4.5 3.4 - 5.3 mmol/L 01/31/2023 9:56 PM CDT [facility] Chloride 102 98 - 107 mmol/L 01/31/2023 9:56 PM CDT [facility] Carbon Dioxide (CO2) 27 22 - 29 mmol/L 01/31/2023 9:56 PM CDT [facility] Anion Gap 11 7 - 15 mmol/L 01/31/2023 9:56 PM CDT [facility] Urea Nitrogen 7.8 6.0 - 20.0 mg/dL 01/31/2023 9:56 PM CDT [facility] Creatinine 0.79 0.51 - 0.95 mg/dL 01/31/2023 9:56 PM CDT [facility] Calcium 9.7 8.6 - 10.0 mg/dL 01/31/2023 9:56 PM CDT [facility] Glucose 98 70 - 99 mg/dL 01/31/2023 9:56 PM CDT [facility] Alkaline Phosphatase 53 35 - 104 U/L 01/31/2023 9:56 PM CDT [facility] AST 15 0 - 45 U/L 01/31/2023 9:56 PM CDT [facility] Comment:Reference intervals for this test were updated on 11/01/2022 to more accurately reflect our healthy population. There may be differences in the flagging of prior results with similar values performed with this method. Interpretation of those prior results can be made in the context of the updated reference intervals. ALT 11 0 - 50 U/L 01/31/2023 9:56 PM CDT [facility] Comment:Reference intervals for this test were updated on 11/01/2022 to more accurately reflect our healthy population. There may be differences in the flagging of prior results with similar values performed with this method. Interpretation of those prior results can be made in the context of the updated reference intervals. Protein Total 7.2 6.4 - 8.3 g/dL 01/31/2023 9:56 PM CDT [facility] Albumin 4.6 3.5 - 5.2 g/dL 01/31/2023 9:56 PM CDT [facility] Bilirubin Total 0.3 <=1.2 mg/dL 01/31/2023 9:56 PM CDT [facility] GFR Estimate >90 >60 mL/min/1. 73m2 01/31/2023 9:56 PM CDT [facility] Blood BLOOD SPECIMEN / Unknown Venipuncture / Unknown 01/31/2023 10:43 AM CDT 01/31/2023 10:43 AM CDT Vi La PA-C LAB - BLOOD ORDERABL ES Performing Organization Address City/State/[facility] Co de Phone Number [facility] [place] [facility] [address] [facility], [address] [address], [facility] [phone] * TSH with free T4 reflex (01/31/2023 10:43 AM CDT) TSH 1.98 0.30 - 4.20 uIU/mL 01/31/2023 9:56 PM CDT [facility] Blood BLOOD SPECIMEN / Unknown Venipuncture / Unknown 01/31/2023 10:43 AM CDT 01/31/2023 10:43 AM CDT Vi La PA-C LAB - BLOOD ORDERABL ES [facility] [place] [facility] [address] [facility] [address], [address] [place] [address], [facility] [phone] documented in this encounter Visit Diagnoses Diagnosis KERWIN (generalized anxiety disorder)- Primary Generalized anxiety disorder Moderate episode of recurrent major depressive disorder (H) Irregular menses Irregular menstrual cycle Irregular menses Irregular menstrual cycle documented in this encounter Additional Health Concerns Assessment Noted Time PHQ-9 Depression Total Score: 9 06/22/19 24 7:10 AM CONTACT LENS EDGE BUFFER documented as of this encounter Care Teams Field Technician Relationship Specialty [place] [address] [place] [address] PCP - General Family Practice 11/27/18 [place] [address] [place] [address] Assigned PCP 05/11/20 documented as of this encounter
--- OUTSIDE RECORDS SUMMARY | 2023-06-22 15:21 | XMS_ITS | Encounter Summary ---
Author Name Unknown Organization [facility] Address [address] [place] [address] Care Team Providers Care Broadcasting Equipment Mechanic Name Role Phone Leslie Silvestre MD Primary Care Provider Leslie Silvestre MD Unavailable [phone] Reason for Visit * Reason Comments Chest Pain Encounter Details Date Type Department Care Team (Late st Contact Info) Description 12/12/2022 7:52 PM CDT - 12/12/2022 11:15 PM CDT Emergency [facility] Emergency Dept [address] [place] [address] Lloyd Victoria MD [facility] [address] [place] [address] Chest pain, unspecified type Discharge Disposition: Home or Self Care Social [...] week 07/05/2022 How often do you attend [facility] or sabianism services? Never 07/05/2022 Do you belong to any clubs o r organizations such as synagogue groups, unions, fraternal or athletic groups, or [...] Answer Date Recorded PHQ-2 Score 2 07/05/2022 [facility] - Occupational Stress Questionnaire Answer Date [...] a correction (including now)? Patient refused 07/05/2022 [place] Depression Scale Answer Date Recorded [place] Depression Score 0 12/07/2018 Last EPDS Self Harm Result Not on file 12/07 Education Answer Date Recorded What is the highest level of school you have completed or the highest degree you have received? 12th grade 06/28/2019 Sex and Gender Information Value Date Recorded Sex Assigned at Female 06/28/2018 11:22 AM RESPIRATORY SUPPORT TECHNICIAN Gender Identity Female 06/28/2018 11:22 AM RESPIRATORY SUPPORT TECHNICIAN Sexual Orientation Not on file COVID-19 Exposure Response Date Recorded In the last 10 days, have yo u been in contact with someone who was confirmed or suspected to have Coronavirus/COVID-19? No / Unsure 12/12/2022 7:46 PM CDT documented as of this encounter Last Filed Vital Signs Vital Sign Reading Time Taken Comments Blood Pressure 144/100 12/12/2022 9:17 PM CDT Pulse 86 12/12/2022 9:17 PM CDT Temperature 36.4 ??C (97.5 ??F) 12/12/2022 7:50 PM CD T Respiratory Rate 18 12/12/2022 7:50 PM CDT Oxygen Saturation 100% 12/12/2022 9:17 PM CDT Inhaled Oxygen Concentration - - Weight 56.6 kg (124 lb 12.5 oz) 12/12/2022 7:50 PM CDT Height - - Body Mass Index 22.1 07/05/2022 2:29 PM RESPIRATORY SUPPORT TECHNICIAN documented in this encounter Discharge Instructions * Discharge Instructions* Lloyd Victoria MD - 12/12/2022 10:06 PM CDT Discharge Instructions Chest Pain You [...] as of this encounter ED Notes * Makenzie Machado RN - 12/12/2022 9:14 PM CDT Cardiac (Adult) Cardiac WDL: (Pt c/o left sided chest pain radiating to left arm since 11/26/22 Pt reports pain is worse with taking a deep breath. intermittent dizziness, SOB and anxiety.) * Harper Montano RN - 12/12/2022 7:49 PM CDT Pt c/o left sided chest pain radiating into left arm since 11/26. Pt reports difficulty with deep inspiration. Pt reports high anxiety today. * Lloyd Victoria MD - 12/12/2022 7:45 PM CDT History Chief Complaint: Chest Pain The history is provided by the patient. Yadi Roblero is a 22 year old female who presents with chest pain. The patient reports that on November 26, she experienced left sided chest pain that radiated into her left arm and had a panic attack.Since then, her chest pain episodes are intermittent and does not last that long but noted that today her chest pain lasted over an hour today. Denies vomiting, fever or shortness of breath. Of note,the patient's mom drove her to the ED. Independent Historian: None - Patient Only Medications: Norethindrone-ethinyl estradiol Past Medical History: Abnormal pap smear of cervix Anxiety PCOS Past Surgical History: The patient denies any significant past surgical history. Physical Exam Patient Vitals for the past 24 hrs: BP Temp Temp src Pulse Resp SpO2 Weight 12/12/22 1950 (!) 150/115 97.5 ??F (36.4 ??C) Temporal 91 18 100 % 56.6 kg (124 lb 12.5 oz) Physical Exam VS: Reviewed per above HENT: Normal speech EYES: sclera anicteric CV: Rate as noted, regular rhythm. RESP: Effort normal. Breath sounds are normal bilaterally. GI: no tenderness/rebound/guarding, not distended. NEURO: Alert, moving all extremities MSK: No deformity of the extremities, no LE asymmetry or ttp. NO UE asymmetry or ttp. Intact left radial pulse at the wrist. SKIN: Warm and dry Emergency Department Course ECG ECG taken at 2007, ECG read at 2010 Normal sinus rhythm Normal ECG No changes as compared to prior, dated 07/27/2022. Rate 81 bpm. HI interval 168 ms. QRS duration 82 ms. QT/QTc 362/420 ms. P-R-T axes 56 42 32. Imaging: XR Chest 2 Views Final Result IMPRESSION: Negative chest. Report per radiology Laboratory: Labs Ordered and Resulted from Time of ED Arrival to Time of ED Departure BASIC METABOLIC PANEL - Normal Result Value Sodium 138 Potassium 3.9 Chloride 102 Carbon Dioxide (CO2) 25 Anion Gap 11 Urea Nitrogen 12.6 Creatinine 0.83 Calcium 9.7 Glucose 99 GFR Estimate >90 D DIMER QUANTITATIVE - Normal D-Dimer Quantitative <0.27 TROPONIN T, HIGH SENSITIVITY - Normal Troponin T, High Sensitivity <6 HCG QUALITATIVE - Normal hCG Serum Qualitative Negative CBC WITH PLATELETS AND DIFFERENTIAL WBC Count 5.4 RBC Count 4.59 Hemoglobin 12.9 Hematocrit 39.7 MCV 87 MCH 28.1 MCHC 32.5 RDW 12.4 Platelet Count 247 % Neutrophils 57 % Lymphocytes 33 % Monocytes 8 % Eosinophils 1 % Basophils 1 % Immature Granulocytes 0 NRBCs per 100 WBC 0 Absolute Neutrophils 3.1 Absolute Lymphocytes 1.8 Absolute Monocytes 0.4 Absolute Eosinophils 0.0 Absolute Basophils 0.0 Absolute Immature Granulocytes 0.0 Absolute NRBCs 0.0 HCG QUALITATIVE URINE Emergency Department Course & Assessments: Interventions: Medications - No data to display Independent Interpretation (X-rays, CTs, rhythm strip): None Assessments/Consultations/Discussion of Management or Tests: ED Course as of 12/12/222209Dec 12, 20222013 I obtained history and examined the patient as noted above. Social Determinants of Health affecting care: None Disposition: The patient was discharged to home. Impression & Plan [facility] Diagnoses: None Medical Decision Making: Yadi Roblero presented to the ER with chest pain. CXR did not reveal wide mediastinum and nature of pain not c/w aortic dissection. No radiographic evidence of pneumothorax nor PNA either. Hx and lack of pneumomediastinum on CXR make boerhaave's syndrome unlikely. Based on lower pretest probability normal D-dimer, PE was also deemed unlikely. ECG did not show signs of STEMI nor other specific signs of ischemia. Troponin testing was negative, thus no signs of acute MS. Hx is also not consistentwith unstable angina. Nature of pain in conjunction with reassuring ECG and negative troponin makespericarditis and myocarditis unlikely as well. Encouraged primary care follow-up and return precautions discussed prior to discharge. Diagnosis: ICD-10-CM 1. Chest pain, unspecified type R07.9 Discharge Medications: New Prescriptions No medications on file Scribe Disclosure: Marita Nguyen, am serving as a scribe at 10:00 PM on 12/12/2022 to document services personally performed by Lloyd Victoria MD based on my observations and the provider's statements to me. 12/12/2022 Lloyd Victoria MD Lindenbaum, Elan, MD 12/12/222209 documented in this encounter Plan of Treatment Upcoming Encounters Date Type Department Care Team (Late st Contact Info) Description 08/03/2023 1:00 PM CDT Office Visit [address] [phone] [place] [id number] [place] [address] [phone] documented as of this encounter Procedures Procedure Name Priority Date/Time Associated Diagnosis Comments XR CHEST 2 VIEWS STAT 12/12/2022 9:56 PM CDT CBC WITH PLATELETS AND DIFFERENTIAL STAT 12/12/2022 8:20 PM CDT TROPONIN T, HIGH SENSITIVITY STAT 12/12/2022 8:20 PM CDT CBC WITH PLATELETS & DIFFERENTIAL STAT 12/12/2022 8:20 PM CDT HCG QUALITATIVE STAT 12/12/2022 8:20 PM CDT D DIMER QUANTITATIVE STAT 12/12/2022 8:20 PM CDT BASIC METABOLIC PANEL STAT 12/12/2022 8:20 PM CDT EKG 12-LEAD, TRACING ONLY STAT 12/12/2022 8:08 PM CDT documented in this encounter Results * XR Chest 2 Views (12/12/2022 9:56 PM CDT) Anatomical Region Laterality Modality Chest Digital Radiogra phy 12/12/2022 9:56 PM CDT Impressions 12/12/2022 10:00 PM CDT IMPRESSION: Negative chest. Narrative 12/12/2022 10:00 PM CDT EXAM: XR CHEST 2 VIEWS LOCATION: [facility] DATE: 12/12/2022 INDICATION: left sided chest pain and arm pain COMPARISON: 05/17/2022 Procedure Note Diego Pandey MD - 12/12/2022 EXAM: XR CHEST 2 VIEWS LOCATION: [facility] DATE: 12/12/2022 INDICATION: left sided chest pain and arm pain COMPARISON: 05/17/2022 IMPRESSION: Negative chest. Lloyd Victoria MD IMG DIAGNOSTIC IMAGI NG ORDERABLES * CBC with platelets and differential (12/12/2022 8:20 PM CDT) WBC Count 5.4 4.0 - 11.0 10e3/uL 12/12/2022 8:27 PM CDT [facility] RBC Count 4.59 3.80 - 5.20 10e6/uL 12/12/2022 8:27 PM CDT [facility] Hemoglobin 12.9 11.7 - 15.7 g/dL 12/12/2022 8:27 PM CDT [facility] Hematocrit 39.7 35.0 - 47.0 % 12/12/2022 8:27 PM CDT [facility] MCV 87 78 - 100 fL 12/12/2022 8:27 PM CDT [facility] MCH 28.1 26.5 - 33.0 pg 12/12/2022 8:27 PM CDT [facility] MCHC 32.5 31.5 - 36.5 g/dL 12/12/2022 8:27 PM CDT [facility] RDW 12.4 10.0 - 15.0 % 12/12/2022 8:27 PM CDT [facility] Platelet Count 247 150 - 450 10e3/uL 12/12/2022 8:27 PM CDT [facility] % Neutrophils 57 % 12/12/2022 8:27 PM CDT [facility] % Lymphocytes 33 % 12/12/2022 8:27 PM CDT [facility] % Monocytes 8 % 12/12/2022 8:27 PM CDT [facility] % Eosinophils 1 % 12/12/2022 8:27 PM CDT [facility] % Basophils 1 % 12/12/2022 8:27 PM CDT [facility] % Immature Granulocytes 0 % 12/12/2022 8:27 PM CDT [facility] NRBCs per 100 WBC 0 <1 /100 023 8:27 PM CDT [facility] Absolute Neutrophils 3.1 1.6 - 8.3 10e3/uL 12/12/2022 8:27 PM CDT [facility] Absolute Lymphocytes 1.8 0.8 - 5.3 10e3/uL 12/12/2022 8:27 PM CDT [facility] Absolute Monocytes 0.4 0.0 - 1.3 10e3/uL 12/12/2022 8:27 PM CDT [facility] Absolute Eosinophils 0.0 0.0 - 0.7 10e3/uL 12/12/2022 8:27 PM CDT [facility] Absolute Basophils 0.0 0.0 - 0.2 10e3/uL 12/12/2022 8:27 PM CDT [facility] Absolute Immature Granulocytes 0.0 <=0.4 10e3/uL 12/12/2022 8:27 PM CDT [facility] Absolute NRBCs 0.0 10e3/uL 12/12/2022 8:27 PM CDT [facility] Blood BLOOD SPECIMEN / Unknown Venipuncture / Unknown 12/12/2022 8:20 PM CDT 12/12/2022 8:24 PM CDT Lloyd Victoria MD LAB - BLOOD ORDERABL ES Performing Organization Address City/[facility]/ZIP Co de Phone Number [facility] [address] Lab (1st floor, no room number) [place] [address], [facility] [[email or web address]] [phone] * HCG QUALitative (blood) (12/12/2022 8:20 PM CDT) hCG Serum Qualitative Negative Negative [place]ON 12/12/2022 9:23 PM CDT [facility] Comment:This test is for scr eening purposes. Results should be interpreted along with the clinical picture. Confirmation testing is available if warranted by ordering [id number], HCG Quantitative . Blood BLOOD SPECIMEN / Unknown Venipuncture / Unknown 12/12/2022 8:20 PM CDT 12/12/2022 8:24 PM CDT Lloyd Victoria MD LAB - BLOOD ORDERABL ES Performing Organization Address [facility]/ZIP Co de Phone Number [facility] Acute Care Lab [address] Lab (1st floor, no room number) [place] [address], [facility] [[email or web address]] [phone] * Troponin T, High Sensitivity (12/12/2022 8:20 PM CDT) Troponin T, High Sensitivity <6 <=14 ng/L 12/12/2022 8:49 PM CDT [facility] Comment: Either a [...] follow-up, or urgent outpatient provocative testing. Blood BLOOD SPECIMEN / Unknown Venipuncture / Unknown 12/12/2022 8:20 PM CDT 12/12/2022 8:24 PM CDT Lloyd Victoria MD LAB - BLOOD ORDERABL ES Performing Organization Address [facility] Co de Phone Number LABORATORY [facility] Acute Care Lab [address] Lab (1st floor, no room number) [place] [phone], [facility] [[email or web address]] [phone] * D dimer quantitative (12/12/2022 8:20 PM CDT) D-Dimer Quantitative <0.27 0.00 - 0.50 ug/mL FEU 12/12/2022 8:37 PM CDT LABORATORY Blood BLOOD SPECIMEN / Unknown Venipuncture / Unknown 12/12/2022 8:20 PM CDT 12/12/2022 8:24 PM CDT Narrative [facility] - 12/12/2022 8:37 PM CDT This D-dimer assay is intended for use in conjunction with a clinical pretest probability assessment model to exclude pulmonary embolism (PE) and deep venous thrombosis (DVT) in outpatients suspected of PE or DVT. The cut-off value is 0.50 ug/mL FEU. Lloyd Victoria MD LAB - BLOOD ORDERABL ES Performing Organization Address [facility] Co de Phone Number LABORATORY [facility] Acute Care Lab [address] Lab (1st floor, no room number) [place] [address], [facility] [[email or web address]] [phone] * Basic metabolic panel (12/12/2022 8:20 PM CDT) Sodium 138 136 - 145 mmol/L 12/12/2022 8:49 PM CDT LABORATORY Potassium 3.9 3.4 - 5.3 mmol/L 12/12/2022 8:49 PM CDT LABORATORY Chloride 102 98 - 107 mmol/L 12/12/2022 8:49 PM CDT LABORATORY Carbon Dioxide (CO2) 25 22 - 29 mmol/L 12/12/2022 8:49 PM CDT LABORATORY Anion Gap 11 7 - 15 mmol/L 12/12/2022 8:49 PM CDT LABORATORY Urea Nitrogen 12.6 6.0 - 20.0 mg/dL 12/12/2022 8:49 PM CDT LABORATORY Creatinine 0.83 0.51 - 0.95 mg/dL 12/12/2022 8:49 PM CDT LABORATORY Calcium 9.7 8.6 - 10.0 mg/dL 12/12/2022 8:49 PM CDT LABORATORY Glucose 99 70 - 99 mg/dL 12/12/2022 8:49 PM CDT LABORATORY GFR Estimate >90 >60 mL/min/1.7 3m2 12/12/2022 8:49 PM CDT [facility] Blood BLOOD SPECIMEN / Unknown Venipuncture / Unknown 12/12/2022 8:20 PM CDT 12/12/2022 8:24 PM CDT Lloyd Victoria MD LAB - BLOOD ORDERABL ES LABORATORY [facility] [address] [facility], no room number) [place] [address] [phone] * EKG 12 lead (12/12/2022 8:08 PM CDT) Systolic Blood Pressure mmHg RADIOLOGY RESULTS Diastolic Blood Pressure mmHg RADIOLOGY RESULTS Ventricular Rate 81 BPM RAD IOLOGY RESULTS Atrial Rate 81 BPM RADIOLOG Y RESULTS HI Interval 168 ms RADIOLOG Y RESULTS QRS Duration 82 ms RADIOLO GY RESULTS QT 362 ms RADIOLOGY RESULTS QTc 420 ms RADIOLOGY RESULTS P [place] 56 degrees RADIOLOGY RESULTS R AXIS 42 degrees RADIOLOGY RESULTS T [place] 32 degrees RADIOLOGY RESULTS Interpretation ECG Sinus rhythm Normal ECG When compared with ECG of 27-JUL-2022 15:46, No significant change was found Confirmed by - EMERGENCY ROOM, PHYSICIAN ([id number]), medical editor KELIN GUY (Rolando) on 12/13/2022 7:47:34 AM RADIOLOGY RESULTS 12/12/2022 8:08 PM CDT 12/13/2022 7:47 AM CDT Lloyd Victoria MD ECG ORDERABLES RADIOLOGY RESULTS documented in this encounter Visit Diagnoses Diagnosis Chest pain, unspecified type documented in this encounter Additional Health Concerns Assessment Noted Time PHQ-9 Depression Total Score: 5 04/30/20 20 3:13 PM RESPIRATORY SUPPORT TECHNICIAN documented as of this encounter Care Teams Broadcasting Equipment Mechanic Relationship Specialty [place] [address] [place] [address] PCP - General Family Practice 11/27/18 [place] [address] [place] [address] Assigned PCP 05/11/20 documented as of this encounter
--- OUTSIDE RECORDS SUMMARY | 2023-06-22 15:21 | XMS_ITS | Encounter Summary ---
Author Name Unknown Organization [facility] Address [address] [place] [address] Care Team Providers Care Assembly Machine Offbearer Name Role Phone Leslie Silvestre MD Primary Care Provider [phone] Leslie Silvestre MD Unavailable Encounter Details Date Type Department Care Team (Latest Contact Info) Description 12/12/2022 Travel Social History Tobacco Use Types Packs/Day [...] How often do you attend chur or adventism services? Never 07/05/2022 Do you belong to any clubs o r organizations such as mu-ism groups, unions, fraternal or athletic groups, or [...] Answer Date Recorded PHQ-2 Score 2 07/05/2022 [facility] - Occupational Stress Questionnaire Answer Date [...] place to sleep or slept in a care home (including now)? Patient refused 07/05/2022 [place] Depression Scale Answer Date Recorded [place] Depression Score 0 12/07/2018 Last EPDS Self Harm Result Not on file 12/07 Education Answer Date Recorded What is the highest level of school you have completed or the highest degree you have received? 12th grade 06/28/2019 Sex and Gender Information Value Date Recorded Sex Assigned at Female 06/28/2018 11:22 AM INFRASTRUCTURE ENGINEER Gender Identity Female 06/28/2018 11:22 AM INFRASTRUCTURE ENGINEER Sexual Orientation Not on file COVID-19 Exposure [...] Description 08/03/2023 1:00 PM CDT Office Visit [facility] [id number] [place] [phone] [place] Silvestre [place] [id number] [place] [address] documented as of this encounter Visit Diagnoses Not on filedocumented in this encounter Additional Health Concerns Assessment Noted Time PHQ-9 Depression Total Score: 5 04/30/20 20 3:13 PM INFRASTRUCTURE ENGINEER documented as of this encounter Care Teams Assembly Machine Offbearer Relationship Specialty [place] [address] [place] [address] PCP - General Family Practice 11/27/18 [place] [address] [place] [address] Assigned PCP 05/11/20 documented as of this encounter
--- OUTSIDE RECORDS SUMMARY | 2023-06-22 15:21 | XMS_ITS | Encounter Summary ---
Author Name Unknown Organization [facility] Address [address] [place] [address] Care Team Providers Care Aviation Safety Technician Name Role Phone Leslie Silvestre MD Primary Care Provider [phone] Leslie Silvestre MD Unavailable [phone] Reason for Visit * Diagnostic Imaging Ultrasound (Routine) - Pending Review Specialty Diagnoses / Procedures Referred By Abelardo farr Referred To Contact Radiology. Diagnoses Encounter for other contraceptive management Cyst of left ovary Procedures US Pelvic [place] [address] [place] [address] Referral ID Status Reason Start Date Expiration Date V isits Requested Visits Authorized [id number] Pending Review 07/05/2022 07/05/2023 1 1 Encounter Details Date Type Department Care Team (Latest Contact Info) Description 07/19/2022 3:30 PM SUPERVISOR PARKING LOT Ancillary Procedure [address] [place] [phone] [place] [address] [place] [address] Encounter for other contraceptive management; Cyst of left ovary Social History Tobacco Use Types Packs/Day Years [...] How often do you attend chur or scientologist services? Never 07/05/2022 Do you belong to any clubs o r organizations such as methodist groups, unions, fraternal or athletic groups, or [...] Answer Date Recorded PHQ-2 Score 2 07/05/2022 [facility] - Occupational Stress [...] place to sleep or slept in a long-term (including now)? Patient refused 07/05/2022 [place] Depression Scale Answer Date Recorded [place] Depression Score 0 12/07/2018 Last EPDS Self Harm Result Not on file 12/07 Education Answer Date Recorded What is the highest level of school you have completed or the highest degree you have received? 12th grade 06/28/2019 Sex and Gender Information Value Date Recorded Sex Assigned at Female 06/28/2018 11:22 AM SUPERVISOR PARKING LOT Gender Identity Female 06/28/2018 11:22 AM SUPERVISOR PARKING LOT Sexual Orientation Not on file COVID-19 Exposure Response Date Recorded In the last 10 days, have yo u been in contact with someone who was confirmed or suspected to have Coronavirus/COVID-19? No / Unsure 07/19/2022 2:57 PM SUPERVISOR PARKING LOT documented as of this encounter Plan of Treatment Upcoming Encounters Date Type Department Care Team (Late st Contact Info) Description 08/03/2023 1:00 PM CDT Office Visit [facility] [id number] [place] [phone] [place] Silvestre [place] [id number] [place] [phone] documented as of this encounter Procedures Procedure Name Priority Date/Time Associated Diagnosis Comments US PELVIC TRANSABDOMINAL AND TRANSVAGINAL Routine 07/19/2022 4:22 PM SUPERVIS[employer] Encounter for other contraceptive management Cyst of left ovary documented in this encounter Results * (ABNORMAL) US Pelvic Complete with Transvaginal (07/19/2022 4:22 PM SUPERVIS[employer]) Anatomical Region Laterality Modality Abdomen/Pelvis Ultrasound Narrative 07/19/2022 7:59 PM SUPERVISOR PARKING [employer] [facility]ne[facility] ?? ULTRASOUND - PELVIC KILN STOKER- Transabdominal and Transvaginal ?? Referring MD:Leslie Diehl ? CLINICAL INFORMATION ?? Indications for ultrasound: Follow up - left ovarian cyst ?? LMP: Apr 2022 ?Hormones: OCP ?? Measurements: Uterus: 7.2 x 4.9 x 5.7 cm ?? Position is retroverted. ??Contour is smooth/regular. ?? Endo cav: 12.1 mm ? Smooth/regular/wnl Cervix: wnl ?? Right ovary: 3.0 x 2.1 x 2.8 cm ??Wnl Left ovary: 3.5 x 2.0 x 2.5 cm Complex cyst 1.9 x 1.1 x 2.1cm ?? Cul de sac: free fluid - 1.0 x 0.4 cm ?? Impression: 1. Complex left ovarian cyst, appears benign and functional and is suggestive of a hemorrhagic cyst. ??Slightly smaller in dimension than the left ovarian cyst previously measured in October 2020, however due to the long latency since the prior ultrasound it is possible that the previous cyst resolved and this is a subsequent finding rather than the old cyst appearing smaller. ??Consider follow-up US in 6-8 weeks to assure resolution if clinically indicated. 2. Trace free fluid in the cul de sac, likely physiologic. Eirn Dodge MD Note: federal law requires the release of results to patients even prior to the ordering provider viewing the result. Your provider will notify you, generally within 24 hours, of any critical results. If follow up is necessary, you will be notified at that time. Normal results, and abnormal but non-urgent results, will generally be addressed within 48-72 hours. Leslie Silvestre MD IMG US ORDERABLES documented in this encounter Visit Diagnoses Diagnosis Encounter for other contraceptive management Cyst of left ovary Other and unspecified ovarian cyst documented in this encounter Additional Health Concerns Assessment Noted Time PHQ-9 Depression Total Score: 5 04/30/20 20 3:13 PM SUPERVISOR PARKING [employer] documented as of this encounter Care Teams Aviation Safety Technician Relationship Specialty Start [place] [address] [place] [address] PCP - General Family Practice 11/27/18 [place] [address] [place] [address] Assigned PCP 05/11/20 documented as of this encounter
--- OUTSIDE RECORDS SUMMARY | 2023-06-22 15:21 | XMS_ITS | Encounter Summary ---
Author Name Unknown Organization [facility] Address [address] [place] [address] Care Team Providers Care Club Manager Name Role Phone Leslie Silvestre MD Primary Care Provider [phone] Leslie Silvestre MD Unavailable [phone] Encounter Details Date Type Department Care Team (Latest Contact Info) Description 07/19/2022 Travel Social History Tobacco Use Types Packs/Day [...] How often do you attend chur or zoroastrian services? Never 07/05/2022 Do you belong to [...] PHQ-2 Score 2 07/05/2022 [facility] - Occupational Stress Questionnaire Answer Date [...] group home (including now)? Patient refused 07/05/2022 Dun[place] Depression Scale Answer Date Recorded [place] Depression Score 0 12/07/2018 Last EPDS Self Harm Result Not on file 12/07 Education Answer Date Recorded What is the highest level of school you have completed or the highest degree you have received? 12th grade 06/28/2019 Sex and Gender Information Value Date Recorded Sex Assigned at Female 06/28/2018 11:22 AM DIE FINISHER FORGING Gender Identity Female 06/28/2018 11:22 AM DIE FINISHER FORGING Sexual Orientation Not on file COVID-19 Exposure Response Date Recorded In the last 10 days, have yo u been in contact with someone who was confirmed or suspected to have Coronavirus/COVID-19? No / Unsure 07/19/2022 2:57 PM DIE FINISHER FORGING documented as of this encounter Plan of Treatment Upcoming Encounters Date Type Department Care Team (Late st Contact Info) Description 08/03/2023 1:00 PM CDT Office Visit [facility] [id number] [place] [phone] [place] Silvestre [place] [id number] [place] [address] documented as of this encounter Visit Diagnoses Not on filedocumented in this encounter Additional Health Concerns Assessment Noted Time PHQ-9 Depression Total Score: 5 04/30/20 20 3:13 PM DIE FINISHER FORGING documented as of this encounter Care Teams Club Manager Relationship Specialty Start Date End Date Leslie Silvestre [place] [id number] [place] [address] PCP - General Family Practice 11/27/18 [place] [address] [place] [address] Assigned PCP 05/11/20 documented as of this encounter
--- OUTSIDE RECORDS SUMMARY | 2023-06-22 15:21 | XMS_ITS | Encounter Summary ---
Author Name Unknown Organization [place] Address [address] [place] [address] Care Team Providers Care Wellness Assistant Name Role Phone Leslie Silvestre MD Primary Care Provider [phone] Leslie Silvestre MD Unavailable [phone] Encounter Details Date Type Department Care Team (Latest Contact Info) Description 07/07/2022 Travel Social History Tobacco Use Types Packs/Day [...] How often do you attend chur or restorationism services? Never 07/05/2022 Do you belong to any clubs o r organizations such as amish groups, unions, fraternal or athletic groups, or [...] Answer Date Recorded PHQ-2 Score 2 07/05/2022 [facility] - Occupational Stress Questionnaire Answer Date [...] place to sleep or slept in a long term (including now)? Patient refused 07/05/2022 [place] Depression Scale Answer Date Recorded [place] Depression Score 0 12/07/2018 Last EPDS Self Harm Result Not on file 12/07 Education Answer Date Recorded What is the highest level of school you have completed or the highest degree you have received? 12th grade 06/28/2019 Sex and Gender Information Value Date Recorded Sex Assigned at Female 06/28/2018 11:22 AM SOFTWARE BUSINESS ANALYST Gender Identity Female 06/28/2018 11:22 AM SOFTWARE BUSINESS ANALYST Sexual Orientation Not on file COVID-19 Exposure Response Date Recorded In the last 10 days, have yo u been in contact with someone who was confirmed or suspected to have Coronavirus/COVID-19? No / Unsure 07/07/2022 3:27 PM SOFTWARE BUSINESS ANALYST documented as of this encounter Plan of Treatment Upcoming Encounters Date Type Department Care Team (Late st Contact Info) Description 08/03/2023 1:00 PM CDT Office Visit [facility] [id number] [place] [phone] Leslie Silvestre [place] [id number] [place] [address] documented as of this encounter Visit Diagnoses Not on filedocumented in this encounter Additional Health Concerns Assessment Noted Time PHQ-9 Depression Total Score: 5 04/30/20 20 3:13 PM SOFTWARE BUSINESS ANALYST documented as of this encounter Care Teams Wellness Assistant Relationship Specialty Start Date End Date Leslie Silvestre [place] [id number] [place] [phone] PCP - General Family Practice 11/27/18 [place] [address] [place] [address] Assigned PCP 05/11/20 documented as of this encounter
--- OUTSIDE RECORDS SUMMARY | 2023-06-22 15:21 | XMS_ITS | Encounter Summary ---
Author Name Unknown Organization [facility] Address [address] [place] [address] Care Team Providers Care Quality Systems Manager Name Role Phone Leslie Silvestre MD Primary Care Provider [phone] Leslie Silvestre MD Unavailable [phone] Encounter Details Date Type Department Care Team (Latest Contact Info) Description 07/27/2022 Travel Social History Tobacco Use Types Packs/Day [...] any clubs o r organizations such as alevism groups, unions, fraternal or athletic groups, or [...] Answer Date Recorded PHQ-2 Score 2 07/05/2022 [facility] - Occupational Stress Questionnaire Answer Date [...] place to sleep or slept in a fpc (including now)? Patient refused 07/05/2022 [place] Depression Scale Answer Date Recorded [place] Depression Score 0 12/07/2018 Last EPDS Self Harm Result Not on file 12/07 Education Answer Date Recorded What is the highest level of school you have completed or the highest degree you have received? 12th grade 06/28/2019 Sex and Gender Information Value Date Recorded Sex Assigned at Female 06/28/2018 11:22 AM CHIEF MINISTER Gender Identity Female 06/28/2018 11:22 AM CHIEF MINISTER Sexual Orientation Not on file COVID-19 Exposure Response Date Recorded In the last 10 days, have yo u been in contact with someone who was confirmed or suspected to have Coronavirus/COVID-19? Unable to assess 07/27/2022 10:56 AM CHIEF MINISTER documented as of this encounter Plan of Treatment Upcoming Encounters Date Type Department Care Team (Late st Contact Info) Description 08/03/2023 1:00 PM CDT Office Visit [facility] [id number] [place] [phone] Leslie Silvestre MD [id number] [place] [address] documented as of this encounter Visit Diagnoses Not on filedocumented in this encounter Additional Health Concerns Assessment Noted Time PHQ-9 Depression Total Score: 5 04/30/20 20 3:13 PM CHIEF MINISTER documented as of this encounter Care Teams Quality Systems Manager Relationship Specialty Start Date End Date [place]vestre [place] [id number] [place] [id number] PCP - General Family Practice 11/27/18 [place] [address] [place] [address] Assigned PCP 05/11/20 documented as of this encounter
--- OUTSIDE RECORDS SUMMARY | 2023-06-22 15:21 | XMS_ITS | Encounter Summary ---
Author Name Unknown Organization [facility] Address [address] [place] [address] Care Team Providers Care Sole Stainer Name Role Phone Leslie Silvestre MD Primary Care Provider Leslie Silvestre MD Unavailable [phone] Reason for Visit * Reason Comments Dizziness Encounter Details Date Type Department Care Team (Late st Contact Info) Description 07/27/2022 1:17 PM RETAIL ZONE SPECIALIST - 07/27/2022 3:54 PM RETAIL ZONE SPECIALIST [facility] Dept [address] [place] [address] Sae Mendez MD [facility] [address] [place] [address] Near syncope Discharge Disposition: Home or Self Care Social [...] How often do you attend chur or buddhist services? Never 07/05/2022 Do you belong to any clubs o r organizations such as zoroastrianism groups, unions, fraternal or athletic groups, or [...] Answer Date Recorded PHQ-2 Score 2 07/05/2022 [facility] ional [facility] - Occupational Stress Questionnaire Answer Date [...] a residential (including now)? Patient refused 07/05/2022 [place] Depression Scale Answer Date Recorded [place] Depression Score 0 12/07/2018 Last EPDS Self Harm Result Not on file 12/07 Education Answer Date Recorded What is the highest level of school you have completed or the highest degree you have received? 12th grade 06/28/2019 Sex and Gender Information Value Date Recorded Sex Assigned at Female 06/28/2018 11:22 AM RETAIL ZONE SPECIALIST Gender Identity Female 06/28/2018 11:22 AM RETAIL ZONE SPECIALIST Sexual Orientation Not on file COVID-19 Exposure Response Date Recorded In the last 10 days, have yo u been in contact with someone who was confirmed or suspected to have Coronavirus/COVID-19? Unable to assess 07/27/2022 10:56 AM RETAIL ZONE SPECIALIST documented as of this encounter Last Filed Vital Signs Vital Sign Reading Time Taken Comments Blood Pressure 120/81 07/27/2022 3:51 PM RETAIL ZONE SPECIALIST Pulse 72 07/27/2022 3:51 PM RETAIL ZONE SPECIALIST Temperature 36.3 ??C (97.4 ??F) 07/27/2022 11:[address] Respiratory Rate 18 07/27/2022 3:51 PM RETAIL ZONE SPECIALIST Oxygen Saturation 99% 07/27/2022 3:51 PM RETAIL ZONE SPECIALIST Inhaled Oxygen Concentration - - Weight - - Height - - Body Mass Index - - documented in this encounter Discharge Instructions * Attachments The following attachments cannot be sent through Care Everywhere. * Near-Fainting- Vagal Reaction ([place]) documented in this encounter Medications at Time [...] as of this encounter ED Notes * Selina Broderick RN - 07/27/2022 10:50 AM CST Pt arrives to triage with EMS due to dizziness that began 0800 with emesis. Scant pain LLQ. BG 78, non diabetic. Hx PCOS. ABC in tact. A/OX4 IL ZONE SPECIALIST * Sae Mendez MD - 07/27/2022 10:44 AM CST History Chief Complaint: Dizziness The history is provided by the patient. Yadi Roblero is a 22 year old female with a history of anxiety and PCOS who presents with sudden onset of dizziness. Patient states she felt well last night and when she woke up this morning at 0800. 2 hours later at 1000, she was sitting at a table and suddenly developed numbness to the bilaterallegs and feet. She then developed a room spinning sensation that lasted 30 seconds to 1 minute. After the episode, she felt wobbly. Her sister called for EMS. En route, she developed palpitations. She now feels back to her baseline. She denies shortness of breath or chest pain. Independent Historian: None - Patient Only Review of External Notes: None ROS: Review of Systems Respiratory: Negative for shortness of breath. Cardiovascular: Positive for palpitations. Neurological: Positive for dizziness and numbness. All other systems reviewed and are negative. Allergies: No Known Drug Allergies Medications: Oral contraceptive Past Medical History: Anxiety PCOS Family History: Breast cancer Depression Hypertension MS Social History: The patient presents with her sister PCP: Leslie Silvestre Physical Exam Patient Vitals for the past 24 hrs: BP Temp Temp src Pulse Resp SpO2 07/27/22 1103 124/84 97.4 ??F (36.3 ??C) Temporal 74 18 98 % Physical Exam Eyes: Conjunctiva normal Neck: Supple, no meningismus. CV: Regular rate and rhythm. No murmurs, rubs or gallops. No unilateral leg swelling. 2+ radial pulses bilateral. No lower extremity edema. PULM: Clear to auscultation bilateral. No respiratory distress. Good air exchange. No rales or wheezing. No stridor. ABD: Soft, non-tender, non-distended. No pulsatile masses. No rebound, guarding or rigidity. MSK: No gross deformity to all four extremities. LYMPH: No cervical lymphadenopathy. NEURO: Alert & O x 3 Speech is clear. Strength 5/5 in all 4 extremities and sensation intact Gait is stable Good muscle tone, no atrophy. Skin: Warm, dry and intact. Psych: Mood is good and affect is appropriate. Emergency Department Course ECG ECG taken at 1546, ECG read at 1549 Normal sinus rhythm with sinus arrhythmia Normal ECG No significant change as compared to prior, dated 05/17/22. Rate 69 bpm. OK interval 152 ms. QRS duration 82 ms. QT/QTc 382/409 ms. P-R-T axes 18 38 15. Laboratory: Labs Ordered and Resulted from Time of ED Arrival to Time of ED Departure BASIC METABOLIC PANEL - Abnormal Result Value Sodium 137 Potassium 3.7 Chloride 100 Carbon Dioxide (CO2) 26 Anion Gap 11 Urea Nitrogen 6.8 Creatinine 0.64 Calcium 9.8 Glucose 103 (*) GFR Estimate >90 ROUTINE UA WITH MICROSCOPIC - Abnormal Color Urine Light Yellow Appearance Urine Clear Glucose Urine Negative Bilirubin Urine Negative Ketones Urine Negative Specific [place] Urine 1.011 Blood Urine Trace (*) pH Urine 7.5 (*) Protein Albumin Urine Negative Urobilinogen Urine Normal Nitrite Urine Negative Leukocyte Esterase Urine Negative Bacteria Urine Few (*) Mucus Urine Present (*) RBC Urine <1 WBC Urine <1 Squamous Epithelials Urine 24 (*) ISTAT HCG QUALITATIVE POCT - Normal HCG Qualitative POCT Negative CBC WITH PLATELETS AND DIFFERENTIAL WBC Count 5.7 RBC Count 4.81 Hemoglobin 13.3 Hematocrit 42.1 MCV 88 MCH 27.7 MCHC 31.6 RDW 13.2 Platelet Count 261 % Neutrophils 70 % Lymphocytes 26 % Monocytes 4 % Eosinophils 0 % Basophils 0 % Immature Granulocytes 0 NRBCs per 100 WBC 0 Absolute Neutrophils 3.9 Absolute Lymphocytes 1.5 Absolute Monocytes 0.3 Absolute Eosinophils 0.0 Absolute Basophils 0.0 Absolute Immature Granulocytes 0.0 Absolute NRBCs 0.0 Emergency Department Course & Assessments: Assessments: 1532 I gathered history and examined the patient as noted above. Social Determinants of Health affecting care: None Disposition: The patient was discharged to home. Impression & Plan Medical Decision Makin-year-old female presented with a 30 to 60-second episode of dizziness described as near syncope.She is back to her baseline at time of evaluation. She has no evidence of dysrhythmia, acute anemia, electrolyte disturbance, hypoglycemia. She has no chest pain or shortness of breath to draw concern for atypical pulmonary embolism or aortic pathology. She has no headache to suggest intracranial hemorrhage. History favors vasovagal pathology. Patient safe for discharge home, follow-up with PCP and return to ED for worsening symptoms. Diagnosis: ICD-10-CM 1. Near syncope R55 Discharge Medications: New Prescriptions No medications on file Scribe Disclosure: Joana Nguyen, pawle serving as a scribe at 3:48 PM on 07/27/2022 to document services personally performed by Sae Mendez MD based on my observations and the provider's statements to me. 07/27/2022 Sae Mendez MD Matthews, Jeremiah R, MD 07/27/222008 IL ZONE SPECIALIST documented in this encounter Plan of Treatment Upcoming Encounters Date Type Department Care Team (Late st Contact Info) Description 08/03/2023 1:00 PM CDT Office Visit [address] [phone] Leslie Silvestre MD [address] [place] [phone] Pending Results Name Type Priority Associated Diagnoses Date /Time EKG 12-lead, tracing only EKG STAT 07/27/2022 3:46 PM RETAIL ZONE SPECIALIST documented as of this encounter Procedures Procedure Name Priority Date/Time Associated Diagnosis Comments EKG 12-LEAD, TRACING ONLY STAT 07/27/2022 3:46 PM RETAIL ZONE SPECIALIST ROUTINE UA WITH MICROSCOPIC STAT 07/27/2022 2:17 PM RETAIL ZONE SPECIALIST EXTRA TUBE STAT 07/27/2022 1:32 PM RETAIL ZONE SPECIALIST EXTRA RED TOP TUBE STAT 07/27/2022 1: 32 PM RETAIL ZONE SPECIALIST EXTRA BLUE TOP TUBE STAT 07/27/2022 1 :32 PM RETAIL ZONE SPECIALIST CBC WITH PLATELETS AND DIFFERENTIAL STAT 07/27/2022 1:32 PM RETAIL ZONE SPECIALIST CBC WITH PLATELETS & DIFFERENTIAL STAT 07/27/2022 1:32 PM RETAIL ZONE SPECIALIST BASIC METABOLIC PANEL STAT 07/27/2022 1:32 PM RETAIL ZONE SPECIALIST ISTAT HCG QUALITATIVE POCT STAT 07/27/2022 1:31 PM RETAIL ZONE SPECIALIST documented in this encounter Results * (ABNORMAL) UA with Microscopic (07/27/2022 2:17 PM RETAIL ZONE SPECIALIST) Color Urine Light Yellow Colorless, Straw, Light Yellow, Yellow 07/27/2022 3:17 PM RETAIL ZONE SPECIALIST [facility] Appearance Urine Clear Clear 07/28/19 3:17 PM RETAIL ZONE SPECIALIST [facility] Glucose Urine Negative Negative mg/dL 07/27/2022 3:17 PM RETAIL ZONE SPECIALIST [facility] Bilirubin Urine Negative Negative 3:17 PM RETAIL ZONE SPECIALIST [facility] Ketones Urine Negative Negative mg/dL 07/27/2022 3:17 PM RETAIL ZONE SPECIALIST [facility] Specific [place] Urine 1.011 1.003 - 1.035 07/27/2022 3:17 PM RETAIL ZONE SPECIALIST [facility] Blood Urine Trace(A) Negative 07/27/2022 3:17 PM RETAIL ZONE SPECIALIST [facility] pH Urine 7.5(H) 5.0 - 7.0 07/27/2022 3:17 PM RETAIL ZONE SPECIALIST [facility] Protein Albumin Urine Negative Negative mg/dL 07/27/2022 3:17 PM RETAIL ZONE SPECIALIST [facility] Urobilinogen Urine Normal Normal, 2.0 mg/dL 07/27/2022 3:17 PM RETAIL ZONE SPECIALIST [facility] Nitrite Urine Negative Negative 07/27/2022 3:17 PM RETAIL ZONE SPECIALIST [facility] Leukocyte Esterase Urine Negative Negative 07/27/2022 3:17 PM RETAIL ZONE SPECIALIST [facility] Bacteria Urine Few(A) None Seen /HPF 07/27/2022 3:17 PM RETAIL ZONE SPECIALIST [facility] Mucus Urine Present(A) None Seen /LPF 07/27/2022 3:17 PM RETAIL ZONE SPECIALIST [facility] RBC Urine <1 <=2 /HPF 07/27/2022 3:17 PM RETAIL ZONE SPECIALIST LABORATORY WBC Urine <1 <=5 /HPF 07/27/2022 3:17 PM RETAIL ZONE SPECIALIST LABORATORY Squamous Epithelials Urine 24(H) <=1 /HPF 07/27/2022 3:17 PM RETAIL ZONE SPECIALIST LABORATORY Urine MID-STREAM URINE SPECIMEN / Unknown Non-blood Collection / Unknown 07/27/2022 2:17 PM RETAIL ZONE SPECIALIST 07/27/2022 2:21 PM RETAIL ZONE SPECIALIST Ascencion Tiwari MD LAB - URINE ORDER CLAUDIA [facility] [address] Lab (1st floor, no room number) [place] [id number], [facility] [phone] * Extra Red Top Tube (07/27/2022 1:32 PM RETAIL ZONE SPECIALIST) Hold Specimen [facility] 07/27/2022 2:46 PM RETAIL ZONE SPECIALIST [facility] Blood STRUCTURE OF LEFT UPPER LIMB / Unknown Venipuncture / Unknown 07/27/2022 1:32 PM RETAIL ZONE SPECIALIST 07/27/2022 1:44 PM RETAIL ZONE SPECIALIST Sae Mendez MD LAB - BLOOD ORDER CLAUD[facility] Lab [address] Lab (1st floor, no room number) [place] [id number], [facility] [phone] * Extra Blue Top Tube (07/27/2022 1:32 PM RETAIL ZONE SPECIALIST) Hold Specimen [facility] 07/27/2022 2:46 PM RETAIL ZONE SPECIALIST [facility] Blood STRUCTURE OF LEFT UPPER LIMB / Unknown Venipuncture / Unknown 07/27/2022 1:32 PM RETAIL ZONE SPECIALIST 07/27/2022 1:44 PM RETAIL ZONE SPECIALIST Sae Mendez MD LAB - BLOOD ORDER CLAUD[facility] [address] Lab (1st floor, no room number) [place] [address], [facility] [phone] * CBC with platelets and differential (07/27/2022 1:32 PM RETAIL ZONE SPECIALIST) WBC Count 5.7 4.0 - 11.0 10e3/uL 07/27/2022 1:48 PM RETAIL ZONE SPECIALIST [facility] RBC Count 4.81 3.80 - 5.20 10e6/uL 07/27/2022 1:48 PM RETAIL ZONE SPECIALIST [facility] Hemoglobin 13.3 11.7 - 15.7 g/dL 07/27/2022 1:48 PM RETAIL ZONE SPECIALIST [facility] Hematocrit 42.1 35.0 - 47.0 % 07/27/2022 1:48 PM RETAIL ZONE SPECIALIST [facility] MCV 88 78 - 100 fL 07/27/2022 1:48 PM RETAIL ZONE SPECIALIST [facility] MCH 27.7 26.5 - 33.0 pg 07/27/2022 1:48 PM RETAIL ZONE SPECIALIST [facility] MCHC 31.6 31.5 - 36.5 g/dL 07/27/2022 1:48 PM RETAIL ZONE SPECIALIST [facility] RDW 13.2 10.0 - 15.0 % 07/27/2022 1:48 PM RETAIL ZONE SPECIALIST [facility] Platelet Count 261 150 - 450 10e3/uL 07/27/2022 1:48 PM RETAIL ZONE SPECIALIST [facility] % Neutrophils 70 % 07/27/2022 1:48 PM RETAIL ZONE SPECIALIST [facility] % Lymphocytes 26 % 07/27/2022 1:48 PM RETAIL ZONE SPECIALIST [facility] % Monocytes 4 % 07/27/2022 1:48 PM RETAIL ZONE SPECIALIST [facility] % Eosinophils 0 % 07/27/2022 1:48 PM RETAIL ZONE SPECIALIST [facility] % Basophils 0 % 07/27/2022 1:48 PM RETAIL ZONE SPECIALIST [facility] % Immature Granulocytes 0 % 07/27/2022 1:48 PM RETAIL ZONE SPECIALIST [facility] NRBCs per 100 WBC 0 <1 /100 023 1:48 PM RETAIL ZONE SPECIALIST [facility] Absolute Neutrophils 3.9 1.6 - 8.3 10e3/uL 07/27/2022 1:48 PM RETAIL ZONE SPECIALIST [facility] Absolute Lymphocytes 1.5 0.8 - 5.3 10e3/uL 07/27/2022 1:48 PM RETAIL ZONE SPECIALIST [facility] Absolute Monocytes 0.3 0.0 - 1.3 10e3/uL 07/27/2022 1:48 PM RETAIL ZONE SPECIALIST LABORATORY Absolute Eosinophils 0.0 0.0 - 0.7 10e3/uL 07/27/2022 1:48 PM RETAIL ZONE SPECIALIST LABORATORY Absolute Basophils 0.0 0.0 - 0.2 10e3/uL 07/27/2022 1:48 PM RETAIL ZONE SPECIALIST LABORATORY Absolute Immature Granulocytes 0.0 <=0.4 10e3/uL 07/27/2022 1:48 PM RETAIL ZONE SPECIALIST LABORATORY Absolute NRBCs 0.0 10e3/uL 07/27/2022 1:48 PM RETAIL ZONE SPECIALIST LABORATORY Blood STRUCTURE OF LEFT UPPER LIMB / Unknown Venipuncture / Unknown 07/27/2022 1:32 PM RETAIL ZONE SPECIALIST 07/27/2022 1:44 PM RETAIL ZONE SPECIALIST Ascencion Tiwari MD LAB - BLOOD ORDER CLAUDIA LABORATORY [facility] [address] Lab (1st floor, no room number) [place] [address] [phone] * (ABNORMAL) Basic metabolic panel (BMP) (07/27/2022 1:32 PM RETAIL ZONE SPECIALIST) Sodium 137 136 - 145 mmol/L 07/27/2022 2:07 PM [facility] Potassium 3.7 3.4 - 5.3 mmol/L 07/27/2022 2:07 PM [facility] Chloride 100 98 - 107 mmol/L 07/27/2022 2:07 PM [facility] Carbon Dioxide (CO2) 26 22 - 29 mmol/L 07/27/2022 2:07 PM [facility] Anion Gap 11 7 - 15 mmol/L 07/27/2022 2:07 PM [facility] Urea Nitrogen 6.8 6.0 - 20.0 mg/dL 07/27/2022 2:07 PM [facility] Creatinine 0.64 0.51 - 0.95 mg/dL 07/27/2022 2:07 PM [facility] Calcium 9.8 8.6 - 10.0 mg/dL 07/27/2022 2:07 PM [facility] Glucose 103(H) 70 - 99 mg/dL 07/27/2022 2:07 PM RETAIL ZONE SPECIALIST [facility] GFR Estimate >90 >60 mL/min/1.7 3m2 07/27/2022 2:07 PM RETAIL ZONE SPECIALIST [facility] Comment:eGFR calculated 2020 CKD-EPI equation. Blood STRUCTURE OF LEFT UPPER LIMB / Unknown Venipuncture / Unknown 07/27/2022 1:32 PM RETAIL ZONE SPECIALIST 07/27/2022 1:44 PM RETAIL ZONE SPECIALIST Ascencion Tiwari MD LAB - BLOOD ORDER CLAUDIA LABORATORY [facility] Lab [address] Lab (1st floor, no room number) [place] [address], [facility] [phone] * iStat HCG Qualitative , POCT (07/27/2022 1:31 PM RETAIL ZONE SPECIALIST) HCG Qualitative POCT Negative Negative, Indeterminate 07/27/2022 1:44 PM RETAIL ZONE SPECIALIST [facility] POC Blood, venous BLOOD SPECIMEN / Unknown 07/27/2022 1:31 PM RETAIL ZONE SPECIALIST 07/27/2022 1:44 PM RETAIL ZONE SPECIALIST Provider Unknown LAB - BEAKER POCT Performing Organization Address City/[facility]/ZIP Co de Phone Number LABORATORY POC [facility] [address] Lab (1st floor, no room number) [place] [address], [facility] [phone] documented in this encounter Visit Diagnoses Diagnosis Near syncope Syncope and collapse documented in this encounter Additional Health Concerns Assessment Noted Time PHQ-9 Depression Total Score: 5 04/30/20 20 3:13 PM RETAIL ZONE SPECIALIST documented as of this encounter Care Teams Sole Stainer Relationship Specialty [place] [address] [place] [address] PCP - General Family Practice 11/27/18 [place] [address] [place] [address] Assigned PCP 05/11/20 documented as of this encounter
--- OUTSIDE RECORDS SUMMARY | 2023-06-22 15:22 | XMS_ITS | Encounter Summary ---
Author Name Unknown Organization [facility] Address [address] [place] [address]. [place] [address] Care Team Providers Care Director Informatics Name Role Phone Leslie Silvestre MD Primary Care Provider [phone] Karen Miller Unavailable Unavailable Leslie Silvestre MD Unavailable [phone] Encounter Details Date Type Department Care Team (Late st Contact Info) Description 05/29/2020 MyC Medical Advice [facility] [id number] [place] [phone] [place] [id number] [place] [address] Social History Tobacco Use Types Packs/Day Years Used Date Smoking Tobacco: Never Smokeless Tobacco: Never Alcohol Use Standard Drinks/Week Comments Yes 0 (1 standard drink = 0.6 oz pur e alcohol) Social Connection and Isolat ion Panel [NHANES] Answer Date Recorded Frequency of Communication w ith Friends and Family More than three times a week 06/28/2019 Frequency of Social Gatherin gs with Friends and Family Once a week 06/28/2019 Attends Orthodoxy Services Never 06/28 Active Member of Clubs or Organizations No 06/28/2019 Attends Club or Organization Meetings Never 06/28/2019 Marital Status Patient declined 06/28/2019 AUDIT-C Answer Date Recorded Q1: How often do you have a drink containing alc ohol? 2-4 times a month 04/30/2020 Q2: How many drinks containi ng alcohol do you have on a typical day when you are drinking? 3 or 4 04/30/2020 Frequency of Binge Drinking Not on file 01/2020 Overall Financial Resource Strain (CARDIA) Answe r Date Recorded How hard is it for you to pa y for the very basics like food, housing, medical care, and heating? Somewhat hard 06/28/2019 PHQ-2 Answer Date Recorded PHQ-2 Score 2 04/30/2020 [facility] Occupat ional Health - Occupational Stress Questionnaire Answer Date Recorded Feeling of Stress Not at all 06/28/2019 Exercise Vital Sign Answer Date Recorde d Days of Exercise per Week 2 days 2019 Minutes of Exercise per Session 20 min 06/28/2019 Hunger Vital Sign Answer Date Recorded Within the past 12 months, y ou worried that your food would run out before you got the money to buy more. Never true 06/28/19 20 Within the past 12 months, t he food you bought just didn't last and you didn't have money to get more. Never true 06/28/2019 PRAPARE - Transportation Answer Date Re corded In the past 12 months, has l ack of transportation kept you from medical appointments or from getting medications? No 10/2019 In the past 12 months, has l ack of transportation kept you from meetings, work, or from getting things needed for daily living? No 06/28/2019 [place] Depression Scale Answer Date Recorded [place] Depression Score 0 12/07/2018 Last EPDS Self Harm Result Not on file 12/07 Education Answer Date Recorded What is the highest level of school you have completed or the highest degree you have received? 12th grade 06/28/2019 Sex and Gender Information Value Date Recorded Sex Assigned at Female 06/28/2018 11:22 AM GENERAL LEDGER BOOKKEEPER Gender Identity Female 06/28/2018 11:22 AM GENERAL LEDGER BOOKKEEPER Sexual Orientation Not on file COVID-19 Exposure Response Date Recorded In the last month, have you been in contact with someone who was confirmed or suspected to have Coronavirus / COVID-19? No / Unsure 05/29/2020 9:40 AM GENERAL LEDGER BOOKKEEPER documented as of this encounter Miscellaneous Notes * Telephone Encounter - Evens Santana RN - 05/29/2020 5:52 PM CST Responded to patient via mychart, will monitor response Evens Santana RN RAL LEDGER BOOKKEEPER * Telephone Encounter - Leslie Silvestre MD - 05/29/2020 5:43 PM CST I believe the control pill would be best to regulate her cycle and protect future fertility. If she is trying to conceive, I can refer her to COLD WATER MACHINE OPERATOR for treatment and fertility consult RAL LEDGER BOOKKEEPER documented in this encounter Plan of Treatment Upcoming Encounters Date Type Department Care Team (Late st Contact Info) Description 08/03/2023 1:00 PM CDT Office Visit [facility] [id number] [place] [phone] [place] [address] [place] [address] documented as of this encounter Visit Diagnoses Not on filedocumented in this encounter Additional Health Concerns Assessment Noted Time PHQ-9 Depression Total Score: 5 04/30/20 20 3:13 PM GENERAL LEDGER BOOKKEEPER documented as of this encounter Care Teams Director Informatics Relationship Specialty [place] [address] [place] [address] PCP - General Family Practice 11/27/18 Karen Miller Personal Advocate & Liaison (PAL) Family Medicine 04/30/20 08/26/20 [place] [address] [place] [address] Assigned PCP 05/11/20 documented as of this encounter
--- OUTSIDE RECORDS SUMMARY | 2023-06-22 15:22 | XMS_ITS | Encounter Summary ---
Author Name Unknown Organization [facility] Address [address] [place] [address] Care Team Providers Care Packing Machine Can Feeder Name Role Phone Leslie Silvestre MD Primary Care Provider [phone] Leslie Silvestre MD Unavailable [phone] Encounter Details Date Type Department Care Team (Late st Contact Info) Description 04/20/2021 MyC Medical Advice [facility] [address] [place] [address] [address] [place] [address] Liz Stern, RN Social History Tobacco Use Types Packs/Day Years [...] and Family Once a week 06/28/2019 Attends Faith Services Never 06/28 Active Member of Clubs [...] 06/28/2019 PHQ-2 Answer Date Recorded PHQ-2 Score 0 08/28/2020 [facility] of Occupat ional Health - Occupational Stress [...] things needed for daily living? No 06/28/2019 [place] Depression Scale Answer Date Recorded [place] Depression Score 0 12/07/2018 Last EPDS Self Harm Result Not on file 12/07 Education Answer Date Recorded What is the highest level of school you have completed or the highest degree you have received? 12th grade 06/28/2019 Sex and Gender Information Value Date Recorded Sex Assigned at Female 06/28/2018 11:22 AM IT AUDITOR Gender Identity Female 06/28/2018 11:22 AM IT AUDITOR Sexual Orientation Not on file COVID-19 Exposure Response Date Recorded In the last month, have you been in contact with someone who was confirmed or suspected to have Coronavirus / COVID-19? No / Unsure 04/23/2021 11:47 AM IT AUDITOR documented as of this encounter Plan of Treatment Upcoming Encounters Date Type Department Care Team (Late st Contact Info) Description 08/03/2023 1:00 PM CDT Office Visit [facility] [id number] [place] [phone] [place] Silvest[place] [id number] [place] [address] documented as of this encounter Visit Diagnoses Not on filedocumented in this encounter Additional Health Concerns Assessment Noted Time PHQ-9 Depression Total Score: 5 04/30/20 20 3:13 PM IT AUDITOR documented as of this encounter Care Teams Packing Machine Can Feeder Relationship Specialty [place] [address] [place] [address] PCP - General Family Practice 11/27/18 [place] [address] [place] [address] Assigned PCP 05/11/20 documented as of this encounter
--- OUTSIDE RECORDS SUMMARY | 2023-06-22 15:22 | XMS_ITS | Encounter Summary ---
Author Name Unknown Organization [facility] Address [address] [place] [address] Care Team Providers Care Speeder Machine Operator Name Role Phone Leslie Silvestre MD Primary Care Provider [phone] Leslie Silvestre MD Unavailable Encounter Details Date Type Department Care Team (Latest Contact Info) Description 07/05/2022 Travel Social History Tobacco Use Types Packs/Day [...] How often do you attend chur or anabaptism services? Never 07/05/2022 Do you belong to any clubs o r organizations such as faith groups, unions, fraternal or athletic groups, or [...] Answer Date Recorded PHQ-2 Score 2 07/05/2022 [facility] - Occupational Stress Questionnaire Answer Date [...] place to sleep or slept in a jail (including now)? Patient refused 07/05/2022 [place] Depression Scale Answer Date Recorded [place] Depression Score 0 12/07/2018 Last EPDS Self Harm Result Not on file 12/07 Education Answer Date Recorded What is the highest level of school you have completed or the highest degree you have received? 12th grade 06/28/2019 Sex and Gender Information Value Date Recorded Sex Assigned at Female 06/28/2018 11:22 AM CHANNEL INSTALLER Gender Identity Female 06/28/2018 11:22 AM CHANNEL INSTALLER Sexual Orientation Not on file COVID-19 Exposure Response Date Recorded In the last 10 days, have yo u been in contact with someone who was confirmed or suspected to have Coronavirus/COVID-19? No / Unsure 07/05/2022 2:32 PM CHANNEL INSTALLER documented as of this encounter Plan of Treatment Upcoming Encounters Date Type Department Care Team (Late st Contact Info) Description 08/03/2023 1:00 PM CDT Office Visit [facility] [phone] [place] [phone] [place] Silvestre [place] [id number] [place] [address] documented as of this encounter Visit Diagnoses Not on filedocumented in this encounter Additional Health Concerns Assessment Noted Time PHQ-9 Depression Total Score: 5 04/30/20 20 3:13 PM CHANNEL INSTALLER documented as of this encounter Care Teams Speeder Machine Operator Relationship Specialty Start Date End [place] [id number] [place] [address] PCP - General Family Practice 11/27/18 [place] [address] [place] [address] Assigned PCP 05/11/20 documented as of this encounter
--- OUTSIDE RECORDS SUMMARY | 2023-06-22 15:22 | XMS_ITS | Encounter Summary ---
Author Name Unknown Organization [facility] Address [address] [place] [address] Care Team Providers Care Metal Patternmaker Name Role Phone Patricia Tobin MD Unavailable + [facility] Primary Care Provider Patricia Tobin MD Unavailable + Roro Garber LABOR LAW PROFESSOR Unavailable [phone] Ref-Primary, Physician Primary Care Provider Leslie Silvestre MD Unavailable [phone] Leslie Silvestre MD Primary Care Provider [phone] Patricia Tobin MD Unavailable + Karen Miller Unavailable Unavailable Leslie Silvestre MD Unavailable [phone] Encounter Details Date Type Department Care Team (Late st Contact Info) Description 07/16/2018 MyC Medical Advice [facility] [address] [place] [address] [place] [address] Tarah Fields CNM NO INFO AVAILABLE 05/13/2022 Social History Tobacco Use Types Packs/Day Years Used Date Smoking Tobacco: Never Smokeless Tobacco: Never Alcohol Use Standard Drinks/Week Comments No 0 (1 standard drink = 0.6 oz pur e alcohol) PHQ-2 Answer Date Recorded PHQ-2 Score 4 07/18/2018 Comments Yes Sex and Gender Information Value Date Recorded Sex Assigned at Female 06/28/2018 11:22 AM TERRY CLOTH CUTTER HAND Gender Identity Female 06/28/2018 11:22 AM TERRY CLOTH CUTTER HAND Sexual Orientation Not on file documented as of this encounter Miscellaneous Notes * Telephone Encounter - Sridevi Valdez RN - 07/17/2018 8:09 AM CST See other mychart message. Sridevi Wayne R.N. [facility] Y CLOTH CUTTER HAND documented in this encounter Plan of Treatment Upcoming Encounters Date Type Department Care Team (Late st Contact Info) Description 08/03/2023 1:00 PM CDT Office Visit [address] [phone] Leslie Silvestre MD [address] [place] [address] documented as of this encounter Visit Diagnoses Not on filedocumented in this encounter Additional Health Concerns Assessment Noted Time PHQ-9 Depression Total Score: 16 024 8:21 AM TERRY CLOTH CUTTER HAND documented as of this encounter Care Teams Metal Patternmaker Relationship Specialty Start Date End Date Patricia Tobin MD PRIMARY ENT [address] [facility] [address] [place], [place] [address] PCP - Assigned PCP 05/14/18 07/25/[address] [id number] PCP - General Internal Medicine 07/03/18 09/28/18 No Ref-Primary, Physician PCP - General 09/29/18 11/26/18 [place] [address] [facility] [address] PCP - General Family Practice 11/27/18 Patricia Tobin MD PRIMARY ENT [address] [place], [place] [address] Assigned PCP 06/11/18 10/14/18 Roro Garber, [facility] Men'S Basketball Coach Primary Care - CC 07/26/18 [place] [address] [place] [address] Assigned PCP 10/15/18 12/08/19 Patricia Tobin MD PRIMARY ENT [address] [place] [address] Assigned PCP 12/09/19 05/10/20 Karen Miller Personal Advocate & Liaison (PAL) Family Medicine 04/30/20 08/26/20 [place] [address] [place] [address] Assigned PCP 05/11/20 documented as of this encounter
--- OUTSIDE RECORDS SUMMARY | 2023-06-22 15:22 | XMS_ITS | Encounter Summary ---
Author Name Unknown [facility] Address [address] [place] [address] Care Team Providers Care Special Services Coordinator Name Role Phone [facility] Primary Care Provider Patricia Tobin MD Unavailable + No Ref-Primary, Physician Primary Care Provider Leslie Silvestre MD Unavailable [phone] Leslie Silvestre MD Primary Care Provider Patricia Tobin MD Unavailable + Karen Miller Unavailable Unavailable OLeslie Espinosa MD Unavailable [phone] Reason for Visit * Reason Onset Date Comments MyChart Communication 09/18/2018 update 08/22 12/08 MyChart message left arm discomfort Encounter Details Date Type Department Care Team (Latest Contact Info) Description 09/18/2018 MyC Medical Advice [facility] [address] [place] [phone] Leslie Silvestre [place] [id number] [place] [address] MyChart Communication (update 09/16/18 MyCh... Social History Tobacco Use Types Packs/Day Years Used Date Smoking Tobacco: Never Smokeless Tobacco: Never Alcohol Use Standard Drinks/Week Comments No 0 (1 standard drink = 0.6 oz pur e alcohol) PHQ-2 Answer Date Recorded PHQ-2 Score 4 09/18/2018 Comments Yes Sex and Gender Information Value Date Recorded Sex Assigned at Female 06/28/2018 11:22 AM GIFT CONSULTANT Gender Identity Female 06/28/2018 11:22 AM GIFT CONSULTANT Sexual Orientation Not on file documented as of this encounter Plan of Treatment Upcoming Encounters Date Type Department Care Team (Late st Contact Info) Description 08/03/2023 1:00 PM CDT Office Visit [facility] [address] [place] [phone] [place] [address] [place] [address] documented as of this encounter Visit Diagnoses Not on filedocumented in this encounter Additional Health Concerns Assessment Noted Time PHQ-9 Depression Total Score: 16 024 8:21 AM GIFT CONSULTANT documented as of this encounter Care Teams Special Services Coordinator Relationship Specialty Start Date End Date [facility] [address] [place] [address] PCP - General Internal Medicine 07/03/18 09/28/18 No Ref-Primary, Physician PCP - General 09/29/18 11/26/18 Leslie Silvestre [place] [id number] [place] [address] PCP - General Family Practice 11/27/18 Patricia Tobin MD PRIMARY ENT [address] [place] [address] Assigned PCP 06/11/18 10/14/18 Leslie Silvestre [place] [address] [place] [address] Assigned PCP 10/15/18 12/08/19 Patricia Tobin MD PRIMARY ENT [address] [place] [address] Assigned PCP 12/09/19 05/10/20 Karen Miller Personal Advocate & Liaison (PAL) Family Medicine 04/30/20 08/26/20 [place] [address] [place], [place] [id number] Assigned PCP 05/11/20 documented as of this encounter
--- OUTSIDE RECORDS SUMMARY | 2023-06-22 15:22 | XMS_ITS | Encounter Summary ---
Author Name Unknown Organization [facility] Address [address] [place] [address] Care Team Providers Care Color Maker Formulator Name Role Phone Leslie Silvestre MD Unavailable [phone] Leslie Silvestre MD Primary Care Provider [phone] Patricia Tobin MD Unavailable + Karen Miller Unavailable Unavailable O'Leslie Enrique MD Unavailable [phone] Encounter Details Date Type Department Care Team (Late st Contact Info) Description 05/25/2019 MyC Medical Advice [address] [phone] Sydni Davalos, RESIDENT MANAGER Social History Tobacco Use Types Packs/Day Years Used Date Smoking Tobacco: Never Smokeless Tobacco: Never Alcohol Use Standard Drinks/Week Comments No 0 (1 standard drink = 0.6 oz pur e alcohol) PHQ-2 Answer Date Recorded PHQ-2 Score 0 11/20/2018 [place] Depression Scale Answer Date Recorded [place] Depression Score 0 12/07/2018 Last EPDS Self Harm Result Not on file 12/07 Sex and Gender Information Value Date Recorded Sex Assigned at Female 06/28/2018 11:22 AM COFFIN MAKER Gender Identity Female 06/28/2018 11:22 AM COFFIN MAKER Sexual Orientation Not on file documented as of this encounter Plan of Treatment Upcoming Encounters Date Type Department Care Team (Late st Contact Info) Description 08/03/2023 1:00 PM CDT Office Visit [facility] [address] [place] [address] [place] [address] [place] [address] documented as of this encounter Visit Diagnoses Not on filedocumented in this encounter Additional Health Concerns Assessment Noted Time PHQ-9 Depression Total Score: 16 024 8:21 AM COFFIN MAKER documented as of this encounter Care Teams Color Maker Formulator Relationship Specialty [place] [address] [place], [place] [phone] PCP - General Family Practice 11/27/18 [place] [address] [place] [address] Assigned PCP 10/15/18 12/08/19 Patricia Tobin MD PRIMARY ENT [address] [place] [id number] Assigned PCP 12/09/19 05/10/20 Karen Miller Personal Advocate & Liaison (PAL) Family Medicine 04/30/20 08/26/20 [place] [address] [place] [address] Assigned PCP 05/11/20 documented as of this encounter
--- OUTSIDE RECORDS SUMMARY | 2023-06-22 15:22 | XMS_ITS | Encounter Summary ---
Author Name Unknown Organization [facility] Address [address] [place] [address] Care Team Providers Care Children'S Attendant Name Role Phone [facility] Primary Care Provider Patricia Tobin MD Unavailable + Roro Garber SKIVING MACHINE OPERATOR Unavailable [phone] Ref-Primary, Physician Primary Care Provider Leslie Silvestre MD Unavailable [phone] Leslie Silvestre MD Primary Care Provider [phone] Patricia Tobin MD Unavailable + Karen Miller Unavailable Unavailable Leslie Silvestre MD Unavailable [phone] Reason for Visit * Reason Onset Date Comments Care 08/05/2018 palpatations Encounter Details Date Type Department Care Team (Late st Contact Info) Description 08/05/2018 MyC Medical Advice [facility] [address] [place] [address] Tarah Fields CNM NO INFO AVAILABLE 05/13/2022 Care (palpatations) Social History Tobacco Use Types Packs/Day Years Used Date Smoking Tobacco: Never Smokeless Tobacco: Never Alcohol Use Standard Drinks/Week Comments No 0 (1 standard drink = 0.6 oz pur e alcohol) PHQ-2 Answer Date Recorded PHQ-2 Score 3 08/04/2018 Comments Yes Sex and Gender Information Value Date Recorded Sex Assigned at Female 06/28/2018 11:22 AM DIRECTOR RISK Gender Identity Female 06/28/2018 11:22 AM DIRECTOR RISK Sexual Orientation Not on file documented as of this encounter Miscellaneous Notes * Telephone Encounter - Sridevi Valdez, RN - 08/07/2018 8:31 AM CDT Do you want a referral to cardiology or for her to see IM for ekg, she has had palpitations again. Sridevi Wayne R.N. [facility] documented in this encounter Plan of Treatment Upcoming Encounters Date Type Department Care Team (Late st Contact Info) Description 08/03/2023 1:00 PM CDT Office Visit [facility] [address] [place] [phone] [place] [address] [place] [address] documented as of this encounter Visit Diagnoses Not on filedocumented in this encounter Additional Health Concerns Assessment Noted Time PHQ-9 Depression Total Score: 16 024 8:21 AM DIRECTOR RISK documented as of this encounter Care Teams Children'S Attendant Relationship Specialty Start Date End Date Clinic - [address] [address] PCP - General Internal Medicine 07/03/18 09/28/18 No Ref-Primary, Physician PCP - General 09/29/18 11/26/18 [place] [address] [place], [place] [phone] PCP - General Family Practice 11/27/18 Patricia Tobin MD PRIMARY ENT [address] [facility] [address] [place] [address] Assigned PCP 06/11/18 10/14/18 Roro Garber, [facility] Clinic 911 Operator Primary Care - CC 07/26/18 [place] [address] [place], [place] [id number] Assigned PCP 10/15/18 12/08/19 Patricia Tobin MD PRIMARY ENT [address] [facility] [address] [place] [address] Assigned PCP 12/09/19 05/10/20 Karen Miller Personal Advocate & Liaison (PAL) Family Medicine 04/30/20 08/26/20 [place] [address] [place] [address] Assigned PCP 05/11/20 documented as of this encounter
--- OUTSIDE RECORDS SUMMARY | 2023-06-22 15:22 | XMS_ITS | Encounter Summary ---
Author Name Unknown Organization [facility] Address [address] [place] [address] Care Team Providers Care Traveling Storekeeper Name Role Phone Leslie Child MD Primary Care Provider Leslie Child MD Unavailable [phone] Reason for Referral * Diagnostic Imaging Ultrasound (Routine) - Pending Review Specialty Diagnoses / Procedures Referred By Contac t Referred To Contact Radiology. Diagnoses Cyst of left ovary Procedures US Pelvic [place] [address] [place] [address] Referral ID Status Reason Start Date Expiration Date V isits Requested Visits Authorized [id number] Pending Review 07/20/2022 07/20/2023 1 1 PRESIDENT SUPPLY CHAIN * Diagnostic Imaging Ultrasound (Routine) - Pending Review Specialty Diagnoses / Procedures Referred By Contac t Referred To Contact Radiology. Diagnoses Encounter for other contraceptive management Cyst of left ovary Procedures US Pelvic [place] [address] [place] [address] Referral ID Status Reason Start Date Expiration Date V isits Requested Visits Authorized [id number] Pending Review 07/05/2022 07/05/2023 1 1 PRESIDENT SUPPLY CHAIN Reason for Visit * Reason Comments Physical Discuss PCOS Ultraso und, STD requst; blood testing request Encounter Details Date Type Department Care Team (Latest Contact Info) Description 07/05/2022 3:00 PM VICE PRESIDENT SUPPLY CHAIN Office Visit [facility] [id number] [place] [address] [phone] [place] [address] [place] [id number] Screen for STD (sexually transmitted disease) (Primary Dx); Encounter for other contraceptive management; Cyst of left ovary; Routine history and physical examination of adult Social History Tobacco Use Types Packs/Day Years [...] you attend formerly [facility] or hindu services? Never 07/05/2022 Do you belong to any clubs o r organizations such as religious groups, unions, fraternal or athletic groups, or [...] Answer Date Recorded PHQ-2 Score 2 07/05/2022 [facility] alexander campusal [facility] - Occupational Stress Questionnaire Answer Date [...] place to sleep or slept in a intermediate (including now)? Patient refused 07/05/2022 [place] Depression Scale Answer Date Recorded [place] Depression Score 0 12/07/2018 Last EPDS Self Harm Result Not on file 12/07 Education Answer Date Recorded What is the highest level of school you have completed or the highest degree you have received? 12th grade 06/28/2019 Sex and Gender Information Value Date Recorded Sex Assigned at Female 06/28/2018 11:22 AM VICE PRESIDENT SUPPLY CHAIN Gender Identity Female 06/28/2018 11:22 AM VICE PRESIDENT SUPPLY CHAIN Sexual Orientation Not on file COVID-19 Exposure Response Date Recorded In the last 10 days, have barry mcqueen been in contact with someone who was confirmed or suspected to have Coronavirus/COVID-19? No / Unsure 07/19/2022 2:57 PM VICE PRESIDENT SUPPLY CHAIN documented as of this encounter Last Filed Vital Signs Vital Sign Reading Time Taken Comments Blood Pressure 134/86 07/05/2022 2:29 PM VICE PRESIDENT SUPPLY CHAIN Pulse 83 07/05/2022 2:29 PM VICE PRESIDENT SUPPLY CHAIN Temperature 36.6 ??C (97.9 ??F) 07/05/2022 2:29 PM CS T Respiratory Rate 18 07/05/2022 2:29 PM VICE PRESIDENT SUPPLY CHAIN Oxygen Saturation 98% 07/05/2022 2:29 PM VICE PRESIDENT SUPPLY CHAIN Inhaled Oxygen Concentration - - Weight 62.1 kg (137 lb) 07/05/2022 2:29 PM VICE PRESIDENT SUPPLY CHAIN Height 160 cm (5' 3) 07/05/2022 2:29 PM VICE PRESIDENT SUPPLY CHAIN Body Mass Index 24.27 07/05/2022 2:29 PM VICE PRESIDENT SUPPLY CHAIN documented in this encounter Progress Notes * Leslie Child MD - 07/05/2022 3:00 PM CST SUBJECTIVE: CC: Yadi is an 22 year old who presents for preventive health visit. She is here for physical. She has PCOS and her OCP does not seem to control her cycles. She is having breakthrough bleeding. She also would like to have a STD check. She is not having symptoms. She also notes off and on abdominal bloating. She has had cysts in the past. Patient has been advised of split billing requirements and indicates understanding: Yes Healthy Habits: Getting at least 3 servings of Calcium per day: NO Bi-annual eye exam: NO Dental care twice a year: NO Sleep apnea or symptoms of sleep apnea: None Diet: Regular (no restrictions) Frequency of exercise: 1 day/week Duration of exercise: Less than 15 minutes Taking medications regularly: Yes Medication side effects: Not applicable PHQ-2 Total Score: 2 Additional concerns today: Yes Today's PHQ-2 Score: PHQ-2 (??1998 Pfizer) 07/05/2022 Q1: Little interest or pleasure in doing things 1 Q2: Feeling down, depressed or hopeless 1 PHQ-2 Score 2 PHQ-2 Total Score (12-17 Years)- Positive if 3 or more points; Administer PHQ-A if positive - Q1: Little interest or pleasure in doing things Several days Q2: Feeling down, depressed or hopeless Several days PHQ-2 Score 2 Have you ever done Advance Care Planning? (For example, a Health Directive, POLST, or a discussion with a medical provider or your loved ones about your wishes): No, advance care planning informationgiven to patient to review. Patient declined advance care planning discussion at this time. Social History Tobacco Use ??? Smoking status: Never ??? Smokeless tobacco: Never Substance Use Topics ??? Alcohol use: Yes Comment: 0-2 x week If you drink alcohol do you typically have >3 drinks per day or >7 drinks per week? No Alcohol Use 07/05/2022 Prescreen: >3 drinks/day or >7 drinks/week? No Prescreen: >3 drinks/day or >7 drinks/week? - Reviewed orders with patient. Reviewed health maintenance and updated orders accordingly - Yes Labs reviewed in [facility] Breast Cancer Screening: History of abnormal Pap smear: NO - age 30- 65 PAP every 3 years recommended PAP / HPV Latest Ref Rng & Units 03/17/2022 04/30/2020 06/28/2019 PAP Negative for Intraepithelial Lesion or Malignancy (NILM) - - PAP (Historical) - - NIL ASC-US(A) HPV16 NEG:Negative - Negative - HPV18 NEG:Negative - Negative - HRHPV NEG:Negative - Negative - Reviewed and updated as needed this visit by clinical staff Tobacco Allergies Meds Past Medical History: Diagnosis Date ??? Abnormal Pap smear of cervix 06/28/2019 See problem list ??? Anxiety ??? Blood type AB+ Past Surgical History: Procedure Laterality Date ??? NO HISTORY OF SURGERY MEDICATIONS: Current Outpatient Medications Medication ??? norethindrone-ethinyl estradiol (JUNEL FE 06/11) 1-20 MG-MCG tablet ??? norethindrone-ethinyl estradiol (MICROGESTIN ) 1.5-30 MG-MCG tablet No current facility-administered medications for this visit. SOCIAL HISTORY: Social History Tobacco Use ??? Smoking status: Never ??? Smokeless tobacco: Never Substance Use Topics ??? Alcohol use: Yes Comment: 0-2 x week Family History Problem Relation Age of Onset ??? Depression Father ??? Hypertension Maternal Grandmother ??? Multiple Sclerosis Maternal Grandmother ??? Diabetes Maternal Grandfather ??? Hypertension Maternal Grandfather ??? Breast Cancer Paternal Grandmother ??? Cancer Maternal Aunt ??? Neurologic Disorder Maternal Uncle MS Review of Systems Constitutional: Negative for chills and fever. HENT: Negative for congestion, ear pain, hearing loss and sore throat. Eyes: Negative for pain and visual disturbance. Respiratory: Negative for cough and shortness of breath. Cardiovascular: Positive for chest pain. Negative for palpitations and peripheral edema. Gastrointestinal: Positive for abdominal pain. Negative for constipation, diarrhea, heartburn, hematochezia and nausea. Breasts: Negative for tenderness, breast mass and discharge. Genitourinary: Positive for pelvic pain. Negative for dysuria, frequency, genital sores, hematuria,urgency, vaginal bleeding and vaginal discharge. Musculoskeletal: Negative for arthralgias, joint swelling and myalgias. Skin: Negative for rash. Neurological: Positive for dizziness. Negative for weakness, headaches and paresthesias. Psychiatric/Behavioral: Negative for mood changes. The patient is not nervous/anxious. OBJECTIVE: BP 134/86 (BP Location: Right arm, Patient Position: Sitting, Cuff Size: Adult Large) Pulse 83 Temp 97.9 ??F (36.6 ??C) (Oral) Resp 18 Ht 1.6 m (5' 3) Wt 62.1 kg (137 lb) LMP 06/14/2022 (Approximate) SpO2 98% BMI 24.27 kg/m?? Physical Exam GENERAL: healthy, alert and no distress EYES: Eyes grossly normal to inspection, PERRL and conjunctivae and sclerae normal HENT: ear canals and TM's normal, nose and mouth without ulcers or lesions NECK: no adenopathy, no asymmetry, masses, or scars and thyroid normal to palpation RESP: lungs clear to auscultation - no rales, rhonchi or wheezes BREAST: normal without masses, tenderness or nipple discharge and no palpable axillary masses or adenopathy CV: regular rate and rhythm, normal S1 S2, no S3 or S4, no murmur, click or rub, no peripheral edema and peripheral pulses strong ABDOMEN: soft, nontender, no hepatosplenomegaly, no masses and bowel sounds normal MS: no gross musculoskeletal defects noted, no edema SKIN: no suspicious lesions or rashes NEURO: Normal strength and tone, mentation intact and speech normal PSYCH: mentation appears normal, affect normal/bright LYMPH: no cervical, supraclavicular, axillary, or inguinal adenopathy Diagnostic Test Results: Labs reviewed in [facility] ASSESSMENT/PLAN: (Z11.3) Screen for STD (sexually transmitted disease) (primary encounter diagnosis) Comment: Plan: NEISSERIA GONORRHOEA PCR, CHLAMYDIA TRACHOMATIS PCR, Wet prep - Clinic Collect, Treponema Abs w Reflex to RPR and Titer, HIV Antigen Antibody Combo, Comprehensive metabolic panel, CBC with platelets, CANCELED: HIV Antigen Antibody Combo, CANCELED: Treponema Abs w Reflex to RPR and Titer (Z30.8) Encounter for other contraceptive management Comment: Plan: REVIEW OF HEALTH MAINTENANCE PROTOCOL ORDERS, US Pelvic Complete with Transvaginal, norethindrone-ethinyl estradiol (MICROGESTIN 1.5/30) 1.5-30 MG-MCG tablet, Treponema Abs w Reflex to RPR and Titer, HIV Antigen Antibody Combo, Comprehensive metabolic panel, CBC with platelets (N83.202) Cyst of left ovary Comment: Plan: US Pelvic Complete with Transvaginal, Treponema Abs w Reflex to RPR and Titer, HIV Antigen Antibody Combo, Comprehensive metabolic panel, CBC with platelets (Z00.00) Routine history and physical examination of adult Comment: Plan: Treponema Abs w Reflex to RPR and Titer, HIV Antigen Antibody Combo, Comprehensive metabolic panel, CBC with platelets, CANCELED: Comprehensive metabolic panel (BMP + Alb, Alk Phos, ALT, AST, Total. Bili, TP), CANCELED: CBC with platelets Patient has been advised of split billing requirements and indicates understanding: Yes COUNSELING: Reviewed preventive health counseling, as reflected in patient instructions Special attention given to: Regular exercise Contraception She reports that she has never smoked. She has never used smokeless tobacco. Leslie Child MD [facility] PRESIDENT SUPPLY CHAIN documented in this encounter Miscellaneous Notes * Addendum Note - Leslie Child MD - 07/05/2022 3:00 PM CSTAddended by: LESLIE CHILD on: 07/20/2022 09:04 AM Modules accepted: Orders PRESIDENT SUPPLY CHAIN documented in this encounter Plan of Treatment Upcoming Encounters Date Type Department Care Team (Late st Contact Info) Description 08/03/2023 1:00 PM CDT Office Visit [facility] [address] [place] [phone] [place] [id number] [place] [address] [phone] Scheduled Orders Name Type Priority Associated Diagnoses Orde r Schedule Treponema Abs w Reflex to RPR and Titer Lab Routine Encounter for other contraceptive management Screen for STD (sexually transmitted disease) Cyst of left ovary Routine history and physical examination of adult Expected: 07/05/2022 (Approximate), Expires: 07/05/2023 HIV Antigen Antibody Combo Lab Routine Encounter for other contraceptive management Screen for STD (sexually transmitted disease) Cyst of left ovary Routine history and physical examination of adult Expected: 07/05/2022 (Approximate), Expires: 07/05/2023 Comprehensive metabolic panel Lab Routine Encounter for other contraceptive management Screen for STD (sexually transmitted disease) Cyst of left ovary Routine history and physical examination of adult Expected: 07/05/2022 (Approximate), Expires: 07/05/2023 CBC with platelets Lab Routine Encounter for other contraceptive management Screen for STD (sexually transmitted disease) Cyst of left ovary Routine history and physical examination of adult Expected: 07/05/2022 (Approximate), Expires: 07/05/2023 US Pelvic Complete with Transvaginal Imaging Routine Cyst of left ovary Expected: 09/03/2022 (Approximate), Expires: 07/20/2023 documented as of this encounter Procedures Procedure Name Priority Date/Time Associated Diagnosis Comments WET PREPARATION Routine 07/05/2022 3:22 PM VICE PRESIDENT SUPPLY CHAIN Screen for STD (sexually transmitted disease) NEISSERIA GONORRHOEAE PCR Routine 07/05/2022 3:22 PM VICE PRESIDENT SUPPLY CHAIN Screen for STD (sexually transmitted disease) CHLAMYDIA TRACHOMATIS PCR Routine 07/05/2022 3:22 PM VICE PRESIDENT SUPPLY CHAIN Screen for STD (sexually transmitted disease) documented in this encounter Results * (ABNORMAL) US Pelvic Complete with Transvaginal (07/19/2022 4:22 PM VICE PRESIDENT SUPPLY CHAIN) Anatomical Region Laterality Modality Abdomen/Pelvis Ultrasound Narrative 07/19/2022 7:59 PM VICE PRESIDENT SUPPLY CHAIN [facility] ?? ULTRASOUND - PELVIC NEON GLASS BENDER- Transabdominal and Transvaginal ?? Referring MD:Leslie Diehl [...] in the cul de sac, likely physiologic. Erin Dodge MD Note: federal law requires the release of results to patients even prior to the ordering provider viewing the result. Your provider will notify you, generally within 24 hours, of any critical results. If follow up is necessary, you will be notified at that time. Normal results, and abnormal but non-urgent results, will generally be addressed within 48-72 hours. Leslie Child MD [facility] ORDERABLES * Wet prep - Clinic Collect (07/05/2022 3:22 PM VICE PRESIDENT SUPPLY CHAIN) Trichomonas Absent Absent [facility] 07/05/2022 3:31 PM VICE PRESIDENT SUPPLY CHAIN [facility] Yeast Absent Absent [facility] 07/05/2022 3:31 PM VICE PRESIDENT SUPPLY CHAIN [facility] Clue Cells Absent Absent [facility] 07/05/2022 3:31 PM VICE PRESIDENT SUPPLY CHAIN [facility] WBCs/high power field None None [facility] 07/05/2022 3:31 PM VICE PRESIDENT SUPPLY CHAIN [facility] Swab VAGINAL STRUCTURE / Unknown Non-blood Collection / Unknown 07/05/2022 3:22 PM VICE PRESIDENT SUPPLY CHAIN 07/05/2022 3:22 PM VICE PRESIDENT SUPPLY CHAIN Leslie Child MD LAB - MICRO GENERAL ORDERABLES [facility] [address] [facility] (no room number, 1st floor of clinic) [place] [address], [facility] [phone] * CHLAMYDIA TRACHOMATIS PCR (07/05/2022 3:22 PM VICE PRESIDENT SUPPLY CHAIN) Chlamydia trachomatis Negative Negative 07/07/2022 2:15 PM VICE PRESIDENT SUPPLY CHAIN [facility] Comment:A negative result by risk and insurance manager mediated amplification does not preclude the presence of C. trachomatis infection because results are dependent on proper and adequate collection, absence of inhibitors and sufficient rRNA to be detected. Urine VAGINAL STRUCTURE / Unknown Non-blood Collection / Unknown 07/05/2022 3:22 PM VICE PRESIDENT SUPPLY CHAIN 07/05/2022 3:22 PM VICE PRESIDENT SUPPLY CHAIN Leslie Child MD LAB - MICRO GENERAL ORDERABLES [facility] Inf. Diseases Diag. Lab [address] [facility], [address] [place] [phone], [facility] [phone] * NEISSERIA GONORRHOEA PCR (07/05/2022 3:22 PM VICE PRESIDENT SUPPLY CHAIN) Neisseria gonorrhoeae Negative Negative 07/07/2022 2:15 PM VICE PRESIDENT SUPPLY CHAIN [facility] Comment:Negative for N. gono rrhoeae rRNA by risk and insurance manager mediated amplification. A negative result by risk and insurance manager mediated amplification does not preclude the presence of C. trachomatis infection because results are dependent on proper and adequate collection, absence of inhibitors and sufficient rRNA to be detected. Urine VAGINAL STRUCTURE / Unknown Non-blood Collection / Unknown 07/05/2022 3:22 PM VICE PRESIDENT SUPPLY CHAIN 07/05/2022 3:22 PM VICE PRESIDENT SUPPLY CHAIN Leslie Child MD LAB - MICRO GENERAL ORDERABLES [facility] Inf. Diseases Diag. Lab [address] [facility], [address] [place] [phone] [phone] documented in this encounter Visit Diagnoses Diagnosis Screen for STD (sexually transmitted disease)- Primary Screening examination for venereal disease Encounter for other contraceptive management Cyst of left ovary Other and unspecified ovarian cyst Routine history and physical examination of adult Routine general medical examination at a health care facility Encounter for other contraceptive management Cyst of left ovary Other and unspecified ovarian cyst documented in this encounter Additional Health Concerns Assessment Noted Time PHQ-9 Depression Total Score: 5 04/30/20 20 3:13 PM VICE PRESIDENT SUPPLY CHAIN documented as of this encounter Care Teams Traveling Storekeeper Relationship Specialty [place] [address] [place] [address] PCP - General Family Practice 11/27/18 [place] [address] [place] [address] Assigned PCP 05/11/20 documented as of this encounter
--- OUTSIDE RECORDS SUMMARY | 2023-06-22 15:22 | XMS_ITS | Encounter Summary ---
Author Name Unknown Organization [facility] Address [address] [place] [address]. [place] [address] Care Team Providers Care Swing Grinder Name Role Phone Leslie Silvestre MD Unavailable [phone] Leslie Silvestre MD Primary Care Provider [phone] Patricia Tobin MD Unavailable + Karen Miller Unavailable Unavailable OLeslie Espinosa MD Unavailable [phone] Reason for Visit * Reason Onset Date Comments Patient Request 12/11/2018 Encounter Details Date Type Department Care Team (Late st Contact Info) Description 12/11/2018 MyC Medical Advice [address] [phone] Leslie Silvestre MD [address] [place] [address] [phone] Patient Request Social History Tobacco Use Types Packs/Day Years Used Date Smoking Tobacco: Never Smokeless Tobacco: Never Alcohol Use Standard Drinks/Week Comments No 0 (1 standard drink = 0.6 oz pur e alcohol) PHQ-2 Answer Date Recorded PHQ-2 Score 0 11/20/2018 [place] Depression Scale Answer Date Recorded [place] Depression Score 0 12/07/2018 Last EPDS Self Harm Result Not on file 12/07 Sex and Gender Information Value Date Recorded Sex Assigned at Female 06/28/2018 11:22 AM MD [facility]ER[facility] IMMUNOLOGY Gender Identity Female 06/28/2018 11:22 AM MD ALLERGY IMMUNOLOGY Sexual Orientation Not on file documented as of this encounter Miscellaneous Notes * Telephone Encounter - Melanie Guevara RN - 12/12/2018 7:09 AM CDT Please see my chart message and response Thank you Melanie Guevara, Registered Nurse [facility] documented in this encounter Plan of Treatment Upcoming Encounters Date Type Department Care Team (Late st Contact Info) Description 08/03/2023 1:00 PM CDT Office Visit [facility] [address] [place] [phone] [place] Silvestre [place] [id number] [place] [address] [phone] documented as of this encounter Visit Diagnoses Not on filedocumented in this encounter Additional Health Concerns Assessment Noted Time PHQ-9 Depression Total Score: 16 024 8:21 AM MD ALLERGY IMMUNOLOGY documented as of this encounter Care Teams Swing Grinder Relationship Specialty Start Date End Date [place] [id number] [place] [id number] PCP - General Family Practice 11/27/18 Leslie Silvestre [place] [id number] [place] [address] Assigned PCP 10/15/18 12/08/19 Patricia Tobin MD PRIMARY ENT [address] [facility] [address] [place] [address] Assigned PCP 12/09/19 05/10/20 Karen Miller Personal Advocate & Liaison (PAL) Family Medicine 04/30/20 08/26/20 [place] [address] [place] [address] Assigned PCP 05/11/20 documented as of this encounter
--- OUTSIDE RECORDS SUMMARY | 2023-06-22 15:22 | XMS_ITS | Encounter Summary ---
Author Name Unknown Organization [facility] Address [address] [place] [address]. [place] [address] Care Team Providers Care Configuration Specialist Name Role Phone Leslie Silvestre MD Primary Care Provider [phone] Leslie Silvestre MD Unavailable [phone] Encounter Details Date Type Department Care Team (Late st Contact Info) Description 11/19/2020 MyC Medical Advice [facility] Women's [address] [place] [phone] Corina Palacios Social History Tobacco Use Types Packs/Day Years [...] and Family Once a week 06/28/2019 Attends [employer] Services Never 06/28 Active Member of Clubs [...] Answer Date Recorded PHQ-2 Score 0 08/28/2020 [facility] - Occupational Stress [...] things needed for daily living? No 06/28/2019 [place] Depression Scale Answer Date Recorded [place] Depression Score 0 12/07/2018 Last EPDS Self Harm Result Not on file 12/07 Education Answer Date Recorded What is the highest level of school you have completed or the highest degree you have received? 12th grade 06/28/2019 Sex and Gender Information Value Date Recorded Sex Assigned at Female 06/28/2018 11:22 AM CAR BUILDER Gender Identity Female 06/28/2018 11:22 AM CAR BUILDER Sexual Orientation Not on file COVID-19 Exposure Response Date Recorded In the last month, have you been in contact with someone who was confirmed or suspected to have Coronavirus / COVID-19? No / Unsure 11/11/2020 10:21 AM CDT documented as of this encounter Plan of Treatment Upcoming Encounters Date Type Department Care Team (Late st Contact Info) Description 08/03/2023 1:00 PM CDT Office Visit [address] [phone] Leslie Silvestre MD [address] [place] [address] documented as of this encounter Visit Diagnoses Not on filedocumented in this encounter Additional Health Concerns Assessment Noted Time PHQ-9 Depression Total Score: 5 04/30/20 20 3:13 PM CAR BUILDER documented as of this encounter Care Teams Configuration Specialist Relationship Specialty Start [place] [address] [place] [address] PCP - General Family Practice 11/27/18 [place] [address] [place] [address] Assigned PCP 05/11/20 documented as of this encounter
--- OUTSIDE RECORDS SUMMARY | 2023-06-22 15:22 | XMS_ITS | Encounter Summary ---
Author Name Unknown Organization [facility] Address [address] [place] [address]. [place] [address] Care Team Providers Care Hot Metal Mixer Operator Name Role Phone Leslie Silvestre MD Primary Care Provider [phone] Leslie Silvestre MD Unavailable [phone] Encounter Details Date Type Department Care Team (Late st Contact Info) Description 02/04/2022 MyC Medical Advice [facility] [address] [place] [address] [phone] Leslie Silvestre [place] [id number] [place] [address] Social History Tobacco Use Types Packs/Day [...] and Family Once a week 06/28/2019 Attends [employer] Never 06/28 Active Member of Clubs [...] Answer Date Recorded PHQ-2 Score 0 08/28/2020 [facility] - Occupational Stress Questionnaire Answer Date [...] things needed for daily living? No 06/28/2019 [place] Depression Scale Answer Date Recorded [place] Depression Score 0 12/07/2018 Last EPDS Self Harm Result Not on file 12/07 Education Answer Date Recorded What is the highest level of school you have completed or the highest degree you have received? 12th grade 06/28/2019 Sex and Gender Information Value Date Recorded Sex Assigned at Female 06/28/2018 11:22 AM PROCUREMENT ENGINEER Gender Identity Female 06/28/2018 11:22 AM PROCUREMENT ENGINEER Sexual Orientation Not on file documented as of this encounter Miscellaneous Notes * Telephone Encounter - Veronika Gaines - 02/08/2022 4:00 PM CDT Form is completed and placed in the [employer] station , will wait for patient to call back to see if she would like to pick it up or wants us to fax form . Called patient LVM. Veronika aGines Director Of Marketing Operations * Telephone Encounter - Leslie Silvestre MD - 02/08/2022 12:48 PM CDT I have filled this out for now until he has a dx and is on treatment. At that time if neurology thinks he is okay, may send him to daycare * Telephone Encounter - Zuleyma Martinez CMA - 02/05/2022 11:27 AM CDT Form on TYRA's desk for completion. Zuleyma Martinez CMA documented in this encounter Plan of Treatment Upcoming Encounters Date Type Department Care Team (Late st Contact Info) Description 08/03/2023 1:00 PM CDT Office Visit [facility] [address] [place] [address] [place] [address] [place] [address] documented as of this encounter Visit Diagnoses Not on filedocumented in this encounter Additional Health Concerns Assessment Noted Time PHQ-9 Depression Total Score: 5 04/30/20 20 3:13 PM PROCUREMENT ENGINEER documented as of this encounter Care Teams Hot Metal Mixer Operator Relationship Specialty [place] [address] [place] [address] PCP - General Family Practice 11/27/18 [place] [address] [place] [address] Assigned PCP 05/11/20 documented as of this encounter"
--- OUTSIDE RECORDS SUMMARY | 2023-06-22 15:22 | XMS_ITS | Encounter Summary ---
Author Name Unknown Organization [facility] Address [address] [place] [address]. [place] [address] Care Team Providers Care Field Insurance Sales Manager Name Role Phone Leslie Silvestre MD Primary Care Provider [phone] Karen Miller Unavailable Unavailable Leslie Silvestre MD Unavailable [phone] Reason for Visit * Reason Onset Date Comments Patient Request 05/14/2020 Encounter Details Date Type Department Care Team (Late st Contact Info) Description 05/14/2020 MyC Medical Advice [address] [address] [place] Silvestre [place] [id number] [place] [address] Patient Request Social History Tobacco Use Types [...] and Family Once a week 06/28/2019 Attends Gnosticism Services Never 06/28 Active Member of Clubs [...] Answer Date Recorded PHQ-2 Score 2 04/30/2020 [facility] - Occupational [...] things needed for daily living? No 06/28/2019 [place] Depression Scale Answer Date Recorded [place] Depression Score 0 12/07/2018 Last EPDS Self Harm Result Not on file 12/07 Education Answer Date Recorded What is the highest level of school you have completed or the highest degree you have received? 12th grade 06/28/2019 Sex and Gender Information Value Date Recorded Sex Assigned at Female 06/28/2018 11:22 AM GLASS SILVERER Gender Identity Female 06/28/2018 11:22 AM GLASS SILVERER Sexual Orientation Not on file COVID-19 Exposure Response Date Recorded In the last month, have you been in contact with someone who was confirmed or suspected to have Coronavirus / COVID-19? No / Unsure 05/13/2020 11:14 AM GLASS SILVERER documented as of this encounter Miscellaneous Notes * Telephone Encounter - Alondra Florentino RN - 05/15/2020 7:[address] Silvestre- see mychart message below. Please advise. Alondra Florentino, RN S SILVERER documented in this encounter Plan of Treatment Upcoming Encounters Date Type Department Care Team (Late st Contact Info) Description 08/03/2023 1:00 PM CDT Office Visit [facility] [address] [place] [address] [place] [id number] [place] [address] documented as of this encounter Visit Diagnoses Not on filedocumented in this encounter Additional Health Concerns Assessment Noted Time PHQ-9 Depression Total Score: 5 04/30/20 20 3:13 PM GLASS SILVERER documented as of this encounter Care Teams Field Insurance Sales Manager Relationship Specialty [place] [address] [place] [address] PCP - General Family Practice 11/27/18 Karen Miller Personal Advocate & Liaison (PAL) Family Medicine 04/30/20 08/26/20 [place] [address] [place] [address] Assigned PCP 05/11/20 documented as of this encounter
--- OUTSIDE RECORDS SUMMARY | 2023-06-22 15:22 | XMS_ITS | Encounter Summary ---
Author Name Unknown Organization [facility] Address [address] [place] [address] Care Team Providers Care Superintendent Commissary Name Role Phone Patricia Tobin MD Unavailable + [facility] Primary Care Provider Patricia Tobin MD Unavailable + Roro Garber PROGRAM DEVELOPER Unavailable [phone] Ref-Primary, Physician Primary Care Provider Leslie Silvestre MD Unavailable [phone] Leslie Silvestre MD Primary Care Provider [phone] Patricia Tobin MD Unavailable + Karen Miller Unavailable Unavailable Leslie Silvestre MD Unavailable [phone] Reason for Visit * Reason Onset Date Comments Care 07/15/2018 [facility] Encounter Details Date Type Department Care Team (Late st Contact Info) Description 07/15/2018 MyC Medical Advice [facility] [address] [place] [address] Tarah Fields CNM NO INFO AVAILABLE 05/13/2022 Care (DONAH[facility]) Social History Tobacco Use Types Packs/Day Years Used Date Smoking Tobacco: Never Smokeless Tobacco: Never Alcohol Use Standard Drinks/Week Comments No 0 (1 standard drink = 0.6 oz pur e alcohol) PHQ-2 Answer Date Recorded PHQ-2 Score 4 07/18/2018 Comments Yes Sex and Gender Information Value Date Recorded Sex Assigned at Female 06/28/2018 11:22 AM FLIGHT SIMULATOR TEACHER Gender Identity Female 06/28/2018 11:22 AM FLIGHT SIMULATOR TEACHER Sexual Orientation Not on file documented as of this encounter Plan of Treatment Upcoming Encounters Date Type Department Care Team (Late st Contact Info) Description 08/03/2023 1:00 PM CDT Office Visit [facility] [address] [place] [phone] Leslie Silvestre MD [address] [place] [id number] documented as of this encounter Visit Diagnoses Not on filedocumented in this encounter Additional Health Concerns Assessment Noted Time PHQ-9 Depression Total Score: 16 024 8:21 AM FLIGHT SIMULATOR TEACHER documented as of this encounter Care Teams Superintendent Commissary Relationship Specialty Start Date End Date Patricia Tobin MD PRIMARY ENT [id number] [facility] [address] [address] [id number] PCP - Assigned PCP 05/14/18 07/25/[address] [id number] PCP - General Internal Medicine 07/03/18 09/28/18 No Ref-Primary, Physician PCP - General 09/29/18 11/26/18 [place] Sil[place]re [place] [id number] [place] [id number] PCP - General Family Practice 11/27/18 Patricia Tobin MD PRIMARY ENT [address] [facility] [address] [place] [address] Assigned PCP 06/11/18 10/14/18 Roro Garber, [facility] Clinic Inpatient Auditor Primary Care - CC 07/26/18 [place] [address] [place], [place] [id number] Assigned PCP 10/15/18 12/08/19 Patricia Tobin MD PRIMARY ENT [address] [facility] [address] [address] [place] [address] Assigned PCP 12/09/19 05/10/20 Karen Miller Personal Advocate & Liaison (PAL) Family Medicine 04/30/20 08/26/20 [place] [address] [place] [address] Assigned PCP 05/11/20 documented as of this encounter
--- OUTSIDE RECORDS SUMMARY | 2023-06-22 15:22 | XMS_ITS | Encounter Summary ---
Author Name Unknown Organization [facility] Address [address] [place] [address]. [place] [address] Care Team Providers Care Java Xml Developer Name Role Phone Leslie Silvestre MD Primary Care Provider [phone] Leslie Silvestre MD Unavailable [phone] Reason for Visit * Reason Onset Date Comments MyChart Communication 11/12/2020 Encounter Details Date Type Department Care Team (Latest Contact Info) Description 11/12/2020 MyC Medical Advice [facility] [address] [place] [phone] Leslie Silvestre MD [address] [place] [address] MyChart Communication Social History Tobacco Use Types Packs/Day Years [...] and Family Once a week 06/28/2019 Attends Mormonism Services Never 06/28 Active Member of Clubs [...] Answer Date Recorded PHQ-2 Score 0 08/28/2020 [facility] Occupat ional Health - Occupational [...] things needed for daily living? No 06/28/2019 [place] Depression Scale Answer Date Recorded [place] Depression Score 0 12/07/2018 Last EPDS Self Harm Result Not on file 12/07 Education Answer Date Recorded What is the highest level of school you have completed or the highest degree you have received? 12th grade 06/28/2019 Sex and Gender Information Value Date Recorded Sex Assigned at Female 06/28/2018 11:22 AM REMOTE SENSING PROGRAM MANAGER Gender Identity Female 06/28/2018 11:22 AM REMOTE SENSING PROGRAM MANAGER Sexual Orientation Not on file COVID-19 Exposure Response Date Recorded In the last month, have you been in contact with someone who was confirmed or suspected to have Coronavirus / COVID-19? No / Unsure 11/11/2020 10:21 AM CDT documented as of this encounter Miscellaneous Notes * Telephone Encounter - Harjeet Connolly MA - 11/12/2020 12:07 PM CDT Duplicate message. Routed other message to triage for review. Harjeet Connolly CMA ([facility]) documented in this encounter Plan of Treatment Upcoming Encounters Date Type Department Care Team (Late st Contact Info) Description 08/03/2023 1:00 PM CDT Office Visit [facility] [address] [place] [address] [place] [address] [place] [address] documented as of this encounter Visit Diagnoses Not on filedocumented in this encounter Additional Health Concerns Assessment Noted Time PHQ-9 Depression Total Score: 5 04/30/20 20 3:13 PM REMOTE SENSING PROGRAM MANAGER documented as of this encounter Care Teams Java Xml Developer Relationship Specialty [place] [address] [place] [address] PCP - General Family Practice 11/27/18 [place] [address] [place] [address] Assigned PCP 05/11/20 documented as of this encounter
--- OUTSIDE RECORDS SUMMARY | 2023-06-22 15:22 | XMS_ITS | Encounter Summary ---
Author Name Unknown Organization [facility] Address [address] [place] [address]. [place] [address] Care Team Providers Care Web Administrator Name Role Phone [facility] Primary Care Provider Patricia Tboin MD Unavailable + No Ref-Primary, Physician Primary Care Provider Leslie Silvestre MD Unavailable [phone] Leslie Silvestre MD Primary Care Provider [phone] Patricia Tobin MD Unavailable + Karen Miller Unavailable Unavailable OLeslie Espinosa MD Unavailable [phone] Reason for Visit * Reason Onset Date Comments MyChart Communication 09/18/2018 left arm i ssue Encounter Details Date Type Department Care Team (Latest Contact Info) Description 09/18/2018 MyC Medical Advice [facility] [address] [place] [phone] [place] Silvestre [place] [address] [place] [address] MyChart Communication (left arm issue) Social History Tobacco Use Types Packs/Day Years Used Date Smoking Tobacco: Never Smokeless Tobacco: Never Alcohol Use Standard Drinks/Week Comments No 0 (1 standard drink = 0.6 oz pur e alcohol) PHQ-2 Answer Date Recorded PHQ-2 Score 4 09/18/2018 Comments Yes Sex and Gender Information Value Date Recorded Sex Assigned at Female 06/28/2018 11:22 AM MEMBER SERVICE SPECIALIST Gender Identity Female 06/28/2018 11:22 AM MEMBER SERVICE SPECIALIST Sexual Orientation Not on file documented as of this encounter Plan of Treatment Upcoming Encounters Date Type Department Care Team (Late st Contact Info) Description 08/03/2023 1:00 PM CDT Office Visit [facility] [address] [place] [phone] [place] [address] [place] [address] documented as of this encounter Visit Diagnoses Not on filedocumented in this encounter Additional Health Concerns Assessment Noted Time PHQ-9 Depression Total Score: 16 024 8:21 AM MEMBER SERVICE SPECIALIST documented as of this encounter Care Teams Web Administrator Relationship Specialty Start Date End Date [facility] - [address] [address] PCP - General Internal Medicine 07/03/18 09/28/18 No Ref-Primary, Physician PCP - General 09/29/18 11/26/18 Leslie Silvestre MD [id number] [place] [address] PCP - General Family Practice 11/27/18 Patricia Tobin MD PRIMARY ENT [address] [place] [address] Assigned PCP 06/11/18 10/14/18 [place] [address] [place] [address] Assigned PCP 10/15/18 12/08/19 Patricia Tobin MD PRIMARY ENT [address] [facility] [address] [place] [address] Assigned PCP 12/09/19 05/10/20 Karen Miller Personal Advocate & Liaison (PAL) Family Medicine 04/30/20 08/26/20 [place] [address] [facility] [place] [address] Assigned PCP 05/11/20 documented as of this encounter
--- OUTSIDE RECORDS SUMMARY | 2023-06-22 15:22 | XMS_ITS | Encounter Summary ---
Author Name Unknown Organization [facility] Address [address] [place] [address]. [place] [address] Care Team Providers Care Software Quality Analyst Name Role Phone Leslie Silvestre MD Primary Care Provider [phone] Leslie Silvestre MD Unavailable [phone] Reason for Visit * Reason Onset Date Comments MyChart Communication 11/12/2020 Encounter Details Date Type Department Care Team (Latest Contact Info) Description 11/12/2020 MyC Medical Advice [facility] [address] [place] [phone] Leslie Silvestre MD [address] [place] [address] MyChart Communication Social History Tobacco Use [...] and Family Once a week 06/28/2019 Attends Yarsanism Services Never 06/28 Active Member of Clubs [...] Answer Date Recorded PHQ-2 Score 0 08/28/2020 [facility] of Occupat ional Health [...] things needed for daily living? No 06/28/2019 [place] Depression Scale Answer Date Recorded [place] Depression Score 0 12/07/2018 Last EPDS Self Harm Result Not on file 12/07 Education Answer Date Recorded What is the highest level of school you have completed or the highest degree you have received? 12th grade 06/28/2019 Sex and Gender Information Value Date Recorded Sex Assigned at Female 06/28/2018 11:22 AM COMPUTER TRAINING SPECIALIST Gender Identity Female 06/28/2018 11:22 AM COMPUTER TRAINING SPECIALIST Sexual Orientation Not on file COVID-19 Exposure Response Date Recorded In the last month, have you been in contact with someone who was confirmed or suspected to have Coronavirus / COVID-19? No / Unsure 11/11/2020 10:21 AM CDT documented as of this encounter Miscellaneous Notes * Telephone Encounter - Evens Santana RN - 11/17/2020 12:49 PM CDT Responded to patient via [employer] will monitor response Evens Santana RN * Telephone Encounter - Leslie Silvestre MD - 11/17/2020 12:18 PM CDT Okay I did just see the ultrasound. I was out for vacation last week. They recommended repeat ultrasound in 6 weeks. Would she like to see MORTGAGE ORIGINATOR for why this keeps happening? * Telephone Encounter - Irwin Jett MD - 11/12/2020 1:41 PM CDT I really would like to leave this until Dr. Silvestre is back, is that possible? If not, then I recommend a virtual visit with one of us to discuss this in details. Irwin Jett MD [facility] [phone] * Telephone Encounter - Alondra Florentino RN - 11/12/2020 1:09 PM CDT See [employer] message below. Please advise. Alondra Florentino RN * Telephone Encounter - Titus Hidalgo RN - 11/12/2020 12:28 PM CDT [place] message sent to patient for clarification. Per last OV note 10/29/20 w/ PCP: Midline low backpain without sciatica, unspecified chronicity - If the xray and ultrasound and labs are all fine and symptoms persist for another 2 weeks, will consider MRI of lumbar spine. US of pelvis completed: Complete pelvic ultrasound using realtime transabdominal and transvaginal scanning. Bladder appears normal. ?? Normal uterus Normal right ovary Complex left ovarian cyst, most consistent with hemorrhagic cyst Normal endometrial lining ?? To ensure resolution or evaluate for growth of this ovarian cyst, consider repeat ultrasound in 6-8weeks. Awaiting reply. Titus Teran, RN * Telephone Encounter - Harjeet Connolly MA - 11/12/2020 12:06 PM CDT Triage, please advise of incoming message. Unsure if this is related to the recent US done on 11/11/2020. Doesn't appear physician resulted the test yet and wondering if patient had seen the results. There is a duplicate MyChart communication regarding this matter as well. Harjeet Connolly CMA ([facility]) documented in this encounter Plan of Treatment Upcoming Encounters Date Type Department Care Team (Late st Contact Info) Description 08/03/2023 1:00 PM CDT Office Visit [facility] [address] [place] [address] [place] [address] [place], [place] [address] documented as of this encounter Visit Diagnoses Not on filedocumented in this encounter Additional Health Concerns Assessment Noted Time PHQ-9 Depression Total Score: 5 04/30/20 20 3:13 PM COMPUTER TRAINING SPECIALIST documented as of this encounter Care Teams Software Quality Analyst Relationship Specialty [place] [address] [place] [address] PCP - General Family Practice 11/27/18 [place] [address] [place] [address] Assigned PCP 05/11/20 documented as of this encounter
--- OUTSIDE RECORDS SUMMARY | 2023-06-22 15:22 | XMS_ITS | Encounter Summary ---
Author Name Unknown Organization [facility] Address [address] [place] [address]. [place] [address] Care Team Providers Care Therapeutic Activities Services Worker Name Role Phone [facility] Primary Care Provider Patricia Tobin MD Unavailable + No Ref-Primary, Physician Primary Care Provider Leslie Silvestre MD Unavailable [phone] Leslie Sivlestre MD Primary Care Provider [phone] Patricia Tobin MD Unavailable + Karen Miller Unavailable Unavailable OLeslie Espinosa MD Unavailable [phone] Reason for Visit * Reason Onset Date Comments MyChart Communication 09/16/2018 arm discom fort Encounter Details Date Type Department Care Team (Latest Contact Info) Description 09/16/2018 MyC Medical Advice [facility] [address] [place] [phone] [place] Silvest[place] [id number] [place] [address] MyChart Communication (arm discomfort) Social History Tobacco Use Types Packs/Day Years Used Date Smoking Tobacco: Never Smokeless Tobacco: Never Alcohol Use Standard Drinks/Week Comments No 0 (1 standard drink = 0.6 oz pur e alcohol) PHQ-2 Answer Date Recorded PHQ-2 Score 4 09/18/2018 Comments Yes Sex and Gender Information Value Date Recorded Sex Assigned at Female 06/28/2018 11:22 AM FLOORS BUFFER Gender Identity Female 06/28/2018 11:22 AM FLOORS BUFFER Sexual Orientation Not on file documented as of this encounter Plan of Treatment Upcoming Encounters Date Type Department Care Team (Late st Contact Info) Description 08/03/2023 1:00 PM CDT Office Visit [facility] [address] [place] [phone] [place] [address] [place] [address] documented as of this encounter Visit Diagnoses Not on filedocumented in this encounter Additional Health Concerns Assessment Noted Time PHQ-9 Depression Total Score: 16 024 8:21 AM FLOORS BUFFER documented as of this encounter Care Teams Therapeutic Activities Services Worker Relationship Specialty Start Date End Date [facility] - [address] [address] PCP - General Internal Medicine 07/03/18 09/28/18 No Ref-Primary, Physician PCP - General 09/29/18 11/26/18 [place] Silvestre [place] [id number] [place] [address] PCP - General Family Practice 11/27/18 Patricia Tobin MD PRIMARY ENT [address] [place] [address] Assigned PCP 06/11/18 10/14/18 [place] [address] [place] [address] Assigned PCP 10/15/18 12/08/19 Patricia Tobin MD PRIMARY ENT [address] [facility] [address] [place] [address] Assigned PCP 12/09/19 05/10/20 Karen Miller Personal Advocate & Liaison (PAL) Family Medicine 04/30/20 08/26/20 [place] [address] [place] [address] Assigned PCP 05/11/20 documented as of this encounter
--- OUTSIDE RECORDS SUMMARY | 2023-06-22 15:23 | XMS_ITS | Encounter Summary ---
Author Name Unknown Organization [facility] Address [address] [place] [address] Care Team Providers Care Powder Room Attendant Name Role Phone Leslie Silvestre MD Primary Care Provider [phone] Katja Catalan MD Primary Care Provider [facility] Primary Care Provide r No Ref-Primary, Physician Primary Care Provider Natasha Horta ROAD FREIGHT CONDUCTOR DRAWING MACHINE OPERATOR Unavailable + Patricia Tobin MD Unavailable + [facility] Primary Care Provider Patricia Tobin MD Unavailable + Roro Garber KITCHEN RUNNER Unavailable [phone] No Ref-Primary, Physician Primary Care Provider Leslie Silvestre MD Unavailable [phone] Leslie Silvestre MD Primary Care Provider [phone] Patricia Tobin MD Unavailable + Karen Miller Unavailable Unavailable Leslie Silvestre MD Unavailable Encounter Details Date Type Department Care Team (Late st Contact Info) Description 03/30/2003 [facility] [address] [place] [phone] [place] [address] [place] [address] ER ENCOUNTER (Primary Dx) Social History Tobacco Use Types Packs/Day Years Used Date Smoking Tobacco: Never Smokeless Tobacco: Never Alcohol Use Standard Drinks/Week Comments Yes 0 (1 standard drink = 0.6 oz pur e alcohol) 0-2 x week Education Answer Date Recorded What is the highest level of school you have completed or the highest degree you have received? 12th grade 06/28/2019 Sex and Gender Information Value Date Recorded Sex Assigned at Female 06/28/2018 11:22 AM COSMETIC ACCOUNT COORDINATOR Gender Identity Female 06/28/2018 11:22 AM COSMETIC ACCOUNT COORDINATOR Sexual Orientation Not on file documented as of this encounter Progress Notes * 03/30/2003 11:59 PM [id number] 00:00 Emergency Department Encounter-DINA RO) [Entered: [facility] ticosta([facility])] : 89 CHIEF COMPLAINT: Sore throat. HISTORY OF PRESENT ILLNESS: Jacob Roblero has had a sore throat for the last two days which has been getting worse according to the mother. Maggy wei had a low grade fever, runny nose, vomited evidently once, slight rash on her face. She has had no diarrhea, no dysuria, no urinary frequency. Does not know if she has been exposed to strep throat. ALLERGIES: No known allergies. MEDICATIONS: She took ibuprofen today. PAST MEDICAL HISTORY: Neg ative. SOCIAL HISTORY: Lives with her mother. REVIEW OF SYSTEMS: Generally, she has been feeling well except for the sore throat. Skin -see history of present illness. Head - negative. Eyes - nega tive. Ears - negative. Throat - see history of present illness. All other systems negative. PHYSIC AL EXAM: Pulse 136, respiratory rate 24, temp. 100.6, pulse oximetry 100% on room air. General, cayetano durant is an alert, cooperative child with a few little reddish bumps on her face. EYES - normal. No con junctival hemorrhage nor injection. THROAT - red. Posterior pharynx with swollen tonsils, no exudat e. NECK - supple, no adenopathy. LUNGS - clear to auscultation, no rales, no rhonchi, no friction r ubs, no wheezing. Rapid strep screen is positive for strep. DISCHARGE PLAN: Lozenges p.r.n. for co mfort, Tylenol p.r.n. fever q.4h. Amoxicillin 250 mg/5 cc 1 tsp t.i.d. times ten days. See PMD if n ot better in two to three days. DIAGNOSIS: Acute strep pharyngitis. CONDITION: Stable. [id number] DINA THORNTON MD MT: Document: [id number] [place], [place] Name: JACOB ROBLERO Electronically filed by Sarah Liriano 04/01 12:41 PM documented in this encounter Plan of Treatment Upcoming Encounters Date Type Department Care Team (Late st Contact Info) Description 08/03/2023 1:00 PM CDT Office Visit [address] [address] Leslie Silvestre MD [address] [place] [address] documented as of this encounter Visit Diagnoses Diagnosis ER ENCOUNTER- Primary documented in this encounter Care Teams Powder Room Attendant Relationship Specialty Start Date [place] [id number] [place] [address] PCP - General 07/22/03 12/17/13 [place] [id number] [place] [address] PCP - General Family Practice 12/18/13 05/27/17 [facility] [address] FINISHED [place]AR[place] [address] PCP - General 05/28/17 03/29/18 No Ref-Primary, Physician PCP - General 03/30/18 07/02/18 Natasha Horta APRN DRAWING MACHINE OPERATOR [address] [place] [address] PCP - Assigned PCP 02/12/18 05/13/18 Patricia Tobin MD PRIMARY ENT [address] [facility] [address] [place] [address] PCP - Assigned PCP 05/14/18 07/25/[address] [id number] PCP - General Internal Medicine 07/03/18 09/28/18 No Ref-Primary, Physician PCP - General 09/29/18 11/26/18 [place] [address] [place] [address] PCP - General Family Practice 11/27/18 Patricia Tobin MD PRIMARY ENT [address] [facility] [address] [place] [address] Assigned PCP 06/11/18 10/14/18 Roro Garber, KITCHEN RUNNER [facility] Specialist Primary Care - CC 07/26/18 [place] [address] [place] [address] Assigned PCP 10/15/18 12/08/19 Patricia Tobin MD PRIMARY ENT [address] [place] [address] Assigned PCP 12/09/19 05/10/20 Karen Miller Personal Advocate & Liaison (PAL) Family Medicine 04/30/20 08/26/20 [place] [address] [place] [address] Assigned PCP 05/11/20 documented as of this encounter
--- OUTSIDE RECORDS SUMMARY | 2023-06-22 15:23 | XMS_ITS ---
Author Name Unknown Organization [facility] Address [address] [place] [address] Care Team Providers Care Billboard Poster Helper Name Role Phone Leslie Silvestre MD Primary Care Provider [phone] Leslie Silvestre MD Unavailable [phone] Primary Care Care Coordination Status:Closed (Closed) Start date:01/11/2023 End date:01/12/2023 Close reason:Unable to reach patient Continued Care and Services Coordination
--- OUTSIDE RECORDS SUMMARY | 2023-06-22 15:23 | XMS_ITS | Encounter Summary ---
Author Name Unknown Organization [facility] Address [address] [place] [address] Care Team Providers Care Financial Operations Clerk Name Role Phone [facility] Primary Care Provide r No Ref-Primary, Physician Primary Care Provider Natasha Horta APRN EQUIPMENT SERVICE LEAD Unavailable + Patricia Tobin MD Unavailable + [facility] Primary Care Provider Patricia Tobin MD Unavailable + Roro Garber VENEER TRIMMER Unavailable [phone] No Ref-Primary, Physician Primary Care Provider Leslei Silvestre MD Unavailable [phone] Leslie Silvestre MD Primary Care Provider [phone] Patricia Tobin MD Unavailable + Karen Miller Unavailable Unavailable Leslie Silvestre MD Unavailable [phone] Reason for Visit * Reason Onset Date Comments Medication Question 06/02/2017 Lexapro, Santiago rax Encounter Details Date Type Department Care Team (Late st Contact Info) Description 06/02/2017 MyC Medical Advice [facility] [address] [facility], [address] [place] [address] Gonzalez Catalan PA-C [address] [place], [place] [id number] Medication Question (Lexapro, Atarax) Social History Tobacco Use Types Packs/Day Years Used Date Smoking Tobacco: Never Smokeless Tobacco: Never Alcohol Use Standard Drinks/Week Comments No 0 (1 standard drink = 0.6 oz pur e alcohol) Sex and Gender Information Value Date Recorded Sex Assigned at Female 06/28/2018 11:22 AM FORK LIFT TECHNICIAN Gender Identity Female 06/28/2018 11:22 AM FORK LIFT TECHNICIAN Sexual Orientation Not on file documented as of this encounter Plan of Treatment Upcoming Encounters Date Type Department Care Team (Late st Contact Info) Description 08/03/2023 1:00 PM CDT Office Visit [facility] [id number] [place] [phone] [place] [address] [place], [place] [phone] documented as of this encounter Visit Diagnoses Not on filedocumented in this encounter Care Teams Financial Operations Clerk Relationship Specialty Start Date End Date [facility] METAL BUILDING ASSEMBLER [address] [place], [place] [id number] PCP - General 05/28/17 03/29/18 No Ref-Primary, Physician PCP - General 03/30/18 07/02/18 Natasha Horta, SHEEBA EQUIPMENT SERVICE LEAD [address] [place] [id number] PCP - Assigned PCP 02/12/18 05/13/18 Patricia Tobin MD PRIMARY ENT [address] [place] [address] PCP - Assigned PCP 05/14/18 07/25/18 [facility] - [address] [address] PCP - General Internal Medicine 07/03/18 09/28/18 No Ref-Primary, Physician PCP - General 09/29/18 11/26/18 [place] [address] [facility] [place] [address] PCP - General Family Practice 11/27/18 Patricia Tobin MD PRIMARY ENT [address] [facility] [address] [place], [place] [address] Assigned PCP 06/11/18 10/14/18 Roro Garber, [facility] Clinic Writer Technical Publications Primary Care - CC 07/26/18 [place] [address] [facility] [place] [place] [address] Assigned PCP 10/15/18 12/08/19 Patricia Tobin MD PRIMARY E[facility] [address] [facility] [address] [place] [address] Assigned PCP 12/09/19 05/10/20 Karen Miller Personal Advocate & Liaison (PAL) Family Medicine 04/30/20 08/26/20 [place] [address] [facility] [place] [address] Assigned PCP 05/11/20 documented as of this encounter
== END 2023-06-22 15:14 | disposition home or self-care (01) ==
LOC: LKVREF 15:14
PROVIDERS: PCP Physician Assistant Medical; Visit Provider Physician Assistant Medical
DX: Z11.4 Encounter for screening for human immunodeficiency virus [HIV] (principal); R10.9 Unspecified abdominal pain
CPT/HCPCS: 86703; 87086

== ENCOUNTER 2023-08-29 14:46 | Outpatient (CLI) | payer BC, SELFPAY ==
--- OUTSIDE RECORDS SUMMARY | 2023-08-29 14:50 | XMS_ITS | Clinical Summary ---
Author Name Unknown Organization [facility] Address [place], [place] [address] Care Team Providers Care Veneer Press Operator Name Role Phone Tiffany Frey PA-C Primary Care Provider Allergies No known active allergies Medications No known medications Active Problems Problem Noted Date Diagnosed Date Screening for cardiovascular condition SOB (shortness of breath) 06/23/2023 Encounters Date Type Department Care Team Description 07/04/2023 Telephone [facility] [address] [place] [address] Carl Lopez MD Results 06/29/2023 12:09 PM NURSING ADMINISTRATOR - 06/29/2023 11:59 PM NURSING ADMINISTRATOR Hospital Encounter [facility] [address] [place] [address] Carl Lopez MD [place], Brandy SOB (shortness of breath) 06/29/2023 Travel 06/23/2023 1:50 PM NURSING ADMINISTRATOR Orders Only [facility] [address] [place] [address] Lab 06/23/2023 1:00 PM NURSING ADMINISTRATOR Office Visit [facility] [address] [place] [address] Carl Lopez MD CV General Cardiology New (INITAL VISIT /DX. SELF REFFERED(JUST WANTED TO CHECK HER HEART) //PCP: Tiffany Frey PA-C//) 06/23/2023 Telephone [facility] [address] [place] [address] Carl Lopez MD Results 06/23/2023 Travel from Last 3 Months Social History Tobacco Use Types Packs/Day Years Used Date Smoking Tobacco: Never Smokeless Tobacco: Never Tobacco Cessation:Counseling Given: Not Answered Alcohol Use Standard Drinks/Week Comments Not Currently 0 (1 standard drink = 0.6 oz pur e alcohol) Social Connections Answer Date Recorded Frequency of Communication with Friends and Fami ly Not on file 06/23/2023 Sex and Gender Information Value Date Recorded Sex Assigned at Not on file Gender Identity Not on file Sexual Orientation Not on file Obstetrics History Last Filed Vital Signs Vital Sign Reading Time Taken Comments Blood Pressure 130/87 06/23/2023 12:58 PM NURSING ADMINISTRATOR Pulse 110 06/23/2023 12:58 PM NURSING ADMINISTRATOR Temperature 36.8 ??C (98.3 ??F) 07/01/2012 7:57 PM CS T Respiratory Rate 18 07/01/2012 7:57 PM NURSING ADMINISTRATOR Oxygen Saturation 98% 06/23/2023 12:58 PM NURSING ADMINISTRATOR Inhaled Oxygen Concentration - - Weight 52.9 kg (116 lb 9.6 oz) 06/23/2023 12:58 PM NURSING ADMINISTRATOR Height 160 cm (5' 3) 06/23/2023 12:58 PM NURSING ADMINISTRATOR Body Mass Index 20.65 06/23/2023 12:58 PM NURSING ADMINISTRATOR Plan of Treatment Health Maintenance Due Date Last Done Comments Tdap 2009 Depression screening for age 12+ 2010 HIV for age 15-65 2013 HPV series for age 9-26 (1 - 3-dose series) 2013 Hepatitis C screening for ag e 18-79 02/27/2016 Tetanus booster 2018 Pap test for age 21-65 2019 COVID-19 vaccine series (2022- season) 2023 Influenza for age 9-49 01/22/2024 BMI (ht and wt on same day) for age 18+ 06/23/2024 06/23/2023 Pneumococcal series for age 6-64 Aged Out No longer eligible based on patient's age to complete this topic Procedures Procedure Name Priority Date/Time Associated Diagnosis Comments ECHO TTE COMPLETE WO CONTRAST Routine 06/29/2023 1:11 PM NURSING ADMINISTRATOR SOB (shortness of breath) LIPID PANEL Routine 06/23/2023 2:53 PM NURSING ADMINISTRATOR Screening for cardiovascular condition EKG 12 LEAD Routine 06/23/2023 12:56 PM NURSING ADMINISTRATOR Screening for cardiovascular condition from Last 3 Months Results * ECHO TTE COMPLETE WO CONTRAST (06/29/2023 1:11 PM NURSING ADMINISTRATOR) AORTIC VALVE MEAN PG 3 mmHg EJECTION FRACTION 58 % LVEDD 4.5 cm Anatomical Region Laterality Modality Ultrasound 06/29/2023 12:1 5 PM NURSING ADMINISTRATOR Narrative 06/29/2023 1:43 PM NURSING ADMINISTRATOR ECHOCARDIOGRAM JACOB ROBLERO ? Accession#: ?? [id number] : ?2000 23 years Study Date: ?? 06/29/2023 12:15:29 PM Gender: F ?BP: ? 119/75 mmHg Height: 160.00 cm ?BSA: ?1.53 m? ? ? Weight: 52.00 kg ? Tech: ? BMN ? Referring MD: CARL LOPEZ Site: ? [facility] Reading Location: ANW OP Patient Location: Outpatient. Procedure: 2D, Color Doppler and Spectral Doppler. Indication for study: SOB Cardiac Rhythm: Regular.Study quality: Fair. Final Impressions: 1. Normal left ventricular size, normal wall thickness, normal global systolic function, calculated EF of 58 %. 2. Right ventricular cavity size is normal, global systolic RV function is normal. 3. Normal left atrium size. 4. The mitral valve is normal, trace mitral regurgitation. 5. Tricuspid valve is normal. 6. The aortic valve is normal, no stenosis and trivial regurgitation. 7. No pericardial effusion. Chamber Sizes and Function Normal left ventricular size, normal wall thickness, normal global systolic function, calculated EF of 58 %. Left atrial size is normal. Right ventricular cavity size is normal, global systolic RV function is normal. RV wall thickness is normal. The right atrium is normal. Right atrial volume index is 14 ml/m? ? ?. Right atrial area is 10 cm? ? ?. The pulmonary artery is of normal size and origin. The sinus of Valsalva is not well visualized. The ascending aorta is normal sized. Valves, RV Pressures and Diastolic Function The aortic valve is normal in structure, no stenosis and trivial regurgitation. The mitral valve is normal in structure, trace mitral regurgitation. Normal diastolic function. The tricuspid valve is normal in structure. Tricuspid regurgitation is trace regurgitation. The pulmonic valve is normal. No pulmonary regurgitation. Masses, Effusion, Shunts There is no pericardial effusion. The inferior vena cava is normal sized, respiratory size variation greater than 50%. Interatrial septum is not well visualized. MEASUREMENTS AND CALCULATIONS 2-D Measurements and LV Function: LVID (d) 4.5 cm Planimetered EF 58 % LVID (s) 2.7 cm LV FS% (2D) ? 39 % IVS (d) ??0.7 cm LVOT diameter ?? 2.1 cm LVPW (d) 0.6 cm HR ?78 bpm Asc Ao ?? 2.4 cm LA Vol index ?20 ml/m2 ?RA Vol index ?14 ml/m2 ?RA area ? 10 cm?RV Max 4C (d) ?? 3.2 cm Diastology: Mitral ?Tissue Doppler E Peak 0.8 m/s ??e', Septum ? 0.11 m/s A Peak 0.3 m/s ??e', Lateral ?0.21 m/s E/A ?2.4 ?E/e' Average ?? 5.08 DT ? 144 msec Aortic Valve: Vmax ? 1.1 m/s ??RC (V) ?? 3.49 cm? ? ? VTI ?0.20 m ?? RC (I) ?? 3.55 cm? ? ? LVOT V max 1.1 m/s ??Max PG ?5 mmHg LVOT VTI ?? 0.20 m ?? Mean PG ?? 3 mmHg SV ? 70 ml ?Dim Index 1.02 SV index ?? 46 ml/m? ? ? CO ?5.4 l/min ?CI ?3.6 l/min/m? ? ? Mitral Valve: MVA ?5.3 cm? ? ? MV P 1/2 42 msec Tricuspid Valve and estimated PA pressures: TAPSE 1.7 cm Pulmonic Valve: PV Vmax 0.9 m/s . This study was interpreted by an [facility] accredited facility. ??Final ?? Procedure Note Angela Gunter, [facility] - 06/29/2023 ECHOCARDIOGRAM JACOB ROBLERO : 2000 23 years Study Date: 06/29/2023 12:15:29 PM Gender: F BP: 119/75 mmHg Height: 160.00 cm BSA: 1.53 m? ? ? Weight: 52.00 kg Tech: WILLIAM Referring MD: CARL LOPEZ Site: [facility] Reading Location: ANW OP Patient Location: Outpatient. Procedure: 2D, Color Doppler and Spectral Doppler. Indication for study: SOB Cardiac Rhythm: Regular.Study quality: Fair. Final Impressions: 1. Normal left ventricular size, normal wall thickness, normal globalsystolic function, calculated EF of 58 %. 2. Right ventricular cavity size is normal, global systolic RV functionis normal. 3. Normal left atrium size. 4. The mitral valve is normal, trace mitral regurgitation. 5. Tricuspid valve is normal. 6. The aortic valve is normal, no stenosis and trivial regurgitation. 7. No pericardial effusion. Chamber Sizes and Function Normal left ventricular size, normal wall thickness, normal globalsystolic function, calculated EF of 58 %. Left atrial size is normal.Right ventricular cavity size is normal, global systolic RV function isnormal. RV wall thickness is normal. The right atrium is normal. Rightatrial volume index is 14 ml/m? ? ?. Right atrial area is 10 cm? ? ?. Thepulmonary artery is of normal size and origin. The sinus of Valsalva isnot well visualized. The ascending aorta is normal sized. Valves, RV Pressures and Diastolic Function The aortic valve is normal in structure, no stenosis and trivialregurgitation. The mitral valve is normal in structure, trace mitralregurgitation. Normal diastolic function. The tricuspid valve is normal instructure. Tricuspid regurgitation is trace regurgitation. The pulmonicvalve is normal. No pulmonary regurgitation. Masses, Effusion, Shunts There is no pericardial effusion. The inferior vena cava is normal sized,respiratory size variation greater than 50%. Interatrial septum is notwell visualized. MEASUREMENTS AND CALCULATIONS 2-D Measurements and LV Function: LVID (d) 4.5 cm Planimetered EF 58 % LVID (s) 2.7 cm LV FS% (2D) 39 % IVS (d) 0.7 cm LVOT diameter 2.1 cm LVPW (d) 0.6 cm HR 78 bpm Asc Ao 2.4 cm LA Vol index 20 ml/m2 RA Vol index 14 ml/m2 RA area 10 cm? ? ? RV Max 4C (d) 3.2 cm Diastology: Mitral Tissue Doppler E Peak 0.8 m/s e', Septum 0.11 m/s A Peak 0.3 m/s e', Lateral 0.21 m/s E/A 2.4 E/e' Average 5.08 DT 144 msec Aortic Valve: Vmax 1.1 m/s RC (V) 3.49 cm? ? ? VTI 0.20 m RC (I) 3.55 cm? ? ? LVOT V max 1.1 m/s Max PG 5 mmHg LVOT VTI 0.20 m Mean PG 3 mmHg SV 70 ml Dim Index 1.02 SV index 46 ml/m? ? ? CO 5.4 l/min CI 3.6 l/min/m? ? ? Mitral Valve: MVA 5.3 cm? ? ? MV P 1/2 42 msec Tricuspid Valve and estimated PA pressures: TAPSE 1.7 cm Pulmonic Valve: PV Vmax 0.9 m/s . This study was interpreted by an [facility] accredited facility. Final Carl Lopez MD ECHO ORD * (ABNORMAL) LIPID PANEL (06/23/2023 2:53 PM NURSING ADMINISTRATOR) CHOLESTEROL,TOTAL 92(L) 100 - 199 mg/dL 06/23/2023 3:31 PM NURSING ADMINISTRATOR [facility] Comment: Cholesterol, Total Reference Ranges Desirable <200 mg/dL Borderline 200-239 mg/dL High >=240 mg/dL TRIGLYCERIDES 32 <150 mg/dL 06/23/2023 3:31 PM NURSING ADMINISTRATOR [facility] HDL CHOLESTEROL 41 >40 mg/dL 3:31 PM NURSING ADMINISTRATOR [facility] NON-HDL CHOLESTEROL 51 <145 mg/dl 06/23/2023 3:31 PM NURSING ADMINISTRATOR [facility] CHOL/HDL RATIO 2.24 <4.50 06/23/2023 3:31 PM NURSING ADMINISTRATOR [facility] LDL CHOLESTEROL 45 <=130 mg/dL 06/23/2023 3:31 PM NURSING ADMINISTRATOR [facility] VLDL CHOLESTEROL 6 <=30 mg/dL 06/23/2023 3:31 PM NURSING ADMINISTRATOR [facility] PROVIDER ORDERED STATUS RANDOM 06/23/2023 3:31 PM NURSING ADMINISTRATOR [facility] Blood BLOOD SPECIMEN / Unknown Non-Lab Venipuncture / Unknown 06/23/2023 2:53 PM NURSING ADMINISTRATOR 06/23/2023 2:53 PM NURSING ADMINISTRATOR Carl Lopez MD CHEMISTRY [facility] [address] [place] [address], * EKG 12 LEAD (06/23/2023 12:56 PM NURSING ADMINISTRATOR) Interpretation Sinus tachycardia Otherwise normal ECG Ventricular Rate 109 BPM Atrial Rate 109 BPM P-R Interval 132 ms QRS Duration 84 ms QT 322 ms QTc 433 ms P [place] 61 degrees R [place] 76 degrees T [place] 39 degrees 06/23/2023 12:5 6 PM NURSING ADMINISTRATOR 06/24/2023 1:39 PM NURSING ADMINISTRATOR Carl Lopez MD EKG ORD from Last 3 Months Care Teams Veneer Press Operator Relationship Specialty Start Date End Date Tiffany Frey PA-C [address] [place] [address] PCP - General Emergency Medicine 06/23/23
--- OUTSIDE RECORDS SUMMARY | 2023-08-29 14:51 | XMS_ITS | Encounter Summary ---
Author Name Unknown Organization [facility] Address [address] [place] [address] Care Team Providers Care Tie Puller Name Role Phone Leslie Silvestre MD Primary Care Provider [phone] Leslie Silvestre MD Unavailable [phone] Encounter Details Date Type Department Care Team (Latest Contact Info) Description 06/22/2023 Travel Social History Tobacco Use Types Packs/Day [...] often do you attend chur ch or hoahaoism services? Never 07/05/2022 Do you belong to any clubs o r organizations such as congregation groups, unions, fraternal or athletic groups, or [...] [facility] Occupat ional [facility] - Occupational Stress Questionnaire Answer [...] to sleep or slept in a senior care (including now)? Patient refused 07/05/2022 [place] Depression Scale Answer Date Recorded [place] Depression Score 0 12/07/2018 Last EPDS Self Harm Result Not on file 12/07 Education Answer Date Recorded What is the highest level of school you have completed or the highest degree you have received? 12th grade 06/28/2019 Sex and Gender Information Value Date Recorded Sex Assigned at Female 06/28/2018 11:22 AM PRECISION LATHE OPERATOR Gender Identity Female 06/28/2018 11:22 AM PRECISION LATHE OPERATOR Sexual Orientation Not on file documented as of this encounter Plan of Treatment Not on file documented as of this encounter Visit Diagnoses Not on filedocumented in this encounter Additional Health Concerns Assessment Noted Time PHQ-9 Depression Total Score: 9 08/29/19 24 7:11 AM CDT documented as of this encounter Care Teams Tie Puller Relationship Specialty Start [place] [address] [place] [address] PCP - General Family Practice 11/27/18 [place] [address] [place] [address] Assigned PCP 05/11/20 documented as of this encounter
--- OUTSIDE RECORDS SUMMARY | 2023-08-29 14:51 | XMS_ITS | Encounter Summary ---
Author Name Unknown Organization [facility] Address [address] [place] [id number] Care Team Providers Care Hospitality Host Name Role Phone Leslie Silvestre MD Primary Care Provider [phone] Leslie Silvestre MD Unavailable [phone] Encounter Details Date Type Department Care Team (Latest Contact Info) Description 06/26/2023 Travel Social History Tobacco Use Types Packs/Day [...] often do you attend chur ch or anabaptist services? Never 07/05/2022 Do you belong to any clubs o r organizations such as lutheran groups, unions, fraternal or athletic groups, or [...] Answer Date Recorded PHQ-2 Score 5 01/31/2023 [facility] Occupat ional [facility] - Occupational Stress Questionnaire Answer Date [...] a detention (including now)? Patient refused 07/05/2022 [place] Depression Scale Answer Date Recorded [place] Depression Score 0 12/07/2018 Last EPDS Self Harm Result Not on file 12/07 Education Answer Date Recorded What is the highest level of school you have completed or the highest degree you have received? 12th grade 06/28/2019 Sex and Gender Information Value Date Recorded Sex Assigned at Female 06/28/2018 11:22 AM [employer]OSPHORIC [employer] OPERATOR Gender Identity Female 06/28/2018 11:22 AM PHOSPHORIC ACID OPERATOR Sexual Orientation Not on file documented as of this encounter Plan of Treatment Not on file documented as of this encounter Visit Diagnoses Not on filedocumented in this encounter Additional Health Concerns Assessment Noted Time PHQ-9 Depression Total Score: 9 08/29/19 24 7:11 AM CDT documented as of this encounter Care Teams Hospitality Host Relationship Specialty [place] [address] [place] [address] PCP - General Family Practice 11/27/18 [place] [id number] [place] [address] Assigned PCP 05/11/20 documented as of this encounter
--- OUTSIDE RECORDS SUMMARY | 2023-08-29 14:51 | XMS_ITS | Encounter Summary ---
Author Name Unknown Organization [facility] Address [address] [place] [id number] Care Team Providers Care Care Transition Mgr Name Role Phone Leslie Silvestre MD Primary Care Provider [phone] Leslie Silvestre MD Unavailable [phone] Reason for Visit * Reason Comments Flank Pain Encounter Details Date Type Department Care Team (Late st Contact Info) Description 06/22/2023 5:52 PM CHILDREN'S TUTOR - 06/22/2023 9:22 PM [facility] Emergency Dept [address] [place] [address] Sae Mendez MD [facility] [address] [place] [address] Chest pain, unspecified type; Right upper quadrant abdominal pain Discharge Disposition: Home or Self Care [...] How often do you attend chur or roman catholic services? Never 07/05/2022 Do you belong to any clubs o r organizations such as rastafari groups, unions, fraternal or athletic groups, or [...] Score 5 [facility]2023 [facility]ational Stress Questionnaire Answer Date [...] a jail (including now)? Patient refused 07/05/2022 [place] Depression Scale Answer Date Recorded [place] Depression Score 0 12/07/2018 Last EPDS Self Harm Result Not on file 12/07 Education Answer Date Recorded What is the highest level of school you have completed or the highest degree you have received? 12th grade 06/28/2019 Sex and Gender Information Value Date Recorded Sex Assigned at Female 06/28/2018 11:22 AM CHILDREN'S TUTOR Gender Identity Female 06/28/2018 11:22 AM CHILDREN'S TUTOR Sexual Orientation Not on file documented as of this encounter Last Filed Vital Signs Vital Sign Reading Time Taken Comments Blood Pressure 117/98 06/22/2023 4:34 PM CHILDREN'S TUTOR Pulse 97 06/22/2023 4:34 PM CHILDREN'S TUTOR Temperature 36.7 ??C (98.1 ??F) 06/22/2023 4:34 PM CS T Respiratory Rate 18 06/22/2023 4:34 PM CHILDREN'S TUTOR Oxygen Saturation 100% 06/22/2023 4:34 PM CHILDREN'S TUTOR Inhaled Oxygen Concentration - - Weight - - Height - - Body Mass Index - - documented in this encounter Discharge Instructions * Discharge Instructions* Sae Mendez MD - 06/22/2023 9:03 PM CHILDREN'S TUTOR Discharge Instructions Chest Pain You have been [...] is anything that worries you. Discharge Instructions Abdominal Pain Abdominal pain (belly pain) can be caused by many things. Your evaluation today does not show the exact cause for your pain. Your provider today has decided that it is unlikely your pain is due to a life threatening problem, or a problem requiring surgery or hospital admission. Sometimes those problems cannot be found right away, so it is very important that you follow up as directed. Sometimes only the changes which occur over time allow the cause of your pain to be found. Generally, every Emergency Department visit should have a follow-up clinic visit with either a primary or a specialty clinic/provider. Please follow-up as instructed by your emergency provider today.With abdominal pain, we often recommend very close follow-up, such as the following day. ADULTS: Return to the Emergency Department right away if: You get an oral temperature above 102oF or as directed by your provider. You have blood in your stools. This may be bright red or appear as black, tarry stools. You keep vomiting (throwing up) or cannot drink liquids. You see blood when you vomit. You cannot have a bowel movement or you cannot pass gas. Your stomach gets bloated or bigger. Your skin or the whites of your eyes look yellow. You faint. You have bloody, frequent or painful urination (peeing). You have new symptoms or anything that worries you. CHILDREN: Return to the Emergency Department right away if your child has any of the above-listed symptoms or the following: Pushes your hand away or screams/cries when his/her belly is touched. You notice your child is very fussy or weak. Your child is very tired and is too tired to eat or drink. Your child is dehydrated. Signs of dehydration can be: Significant change in the amount of wet diapers/urine. Your infant or child starts to have dry mouth and lips, or no saliva (spit) or tears. WOMEN: Return to the Emergency Department right away if you have any of the above-listed symptoms or the following: You have bleeding, leaking fluid or passing tissue from the vagina. You have worse pain or cramping, or pain in your shoulder or back. You have vomiting that will not stop. You have a temperature of 100oF or more. Your baby is not moving as much as usual. You faint. You get a bad headache with or without eye problems and abdominal pain. You have a seizure. You have unusual discharge from your vagina and abdominal pain. Abdominal pain is pretty common during . Your pain may or may not be related to your . You should follow-up closely with your OB provider so they can evaluate you and your baby. Until you follow-up with your regular provider, do the following: Avoid sex and do not put anything in your vagina. Drink clear fluids. Only take medications approved by your provider. MORE INFORMATION: Appendicitis: A possible cause of abdominal pain in any person who still has their appendix is acute appendicitis. Appendicitis is often hard to diagnose. Testing does not always rule out early appendicitis or other causes of abdominal pain. Close follow-up with your provider and re-evaluations maybe needed to figure out the reason for your abdominal pain. Follow-up: It is very important that you make an appointment with your clinic and go to the appointment. If you do not follow-up with your primary provider, it may result in missing an important development which could result in permanent injury or disability and/or lasting pain. If there is any problem keeping your appointment, call your provider or return to the Emergency Department. Medications: Take your medications as directed by your provider today. Before using [id number] medications, ask your provider and make sure to take the medications as directed. If you have any questions about medications, ask your provider. Diet: Resume your normal diet as much as possible, but do not eat fried, fatty or spicy foods whileyou have pain. Do not drink alcohol or have caffeine. Do not smoke tobacco. Probiotics: If you have been given an antibiotic, you may want to also take a probiotic pill or eatyogurt with live cultures. Probiotics have good bacteria to help your intestines stay healthy. Studies have shown that probiotics help prevent diarrhea (loose stools) and other intestine problems (including C. diff infection) when you take antibiotics. You can buy these without a prescription in the pharmacy section of the store. If you were given a prescription for [...] if there is anything that worries you. DREN'S TUTOR documented in this encounter Medications at Time of Discharge Medication Sig Dispensed Refills Start Date End Date escitalopram (LEXAPRO) 10 MG tabletIndications:Modera te episode of recurrent major depressive disorder (H),KERWIN (generalized anxiety disorder) Take 1 tablet (10 mg) by mouth daily 30 tablet 1 02/02/2023 norethindrone-ethinyl estradiol (06/11) 1-20 MG-MCG tabletIndications:Encoun ter for other contraceptive management Take 1 tablet by mouth daily 84 tablet 3 03/18/2022 norethindrone-ethinyl estradiol (MICROGESTIN 1.5/30) 1.5-30 MG-MCG tabletIndications:Encoun ter for other contraceptive management Take 1 tablet by mouth daily 84 tablet 3 07/05/2022 naproxen (NAPROSYN) 500 MG tablet Take 1 tablet (500 mg) by mouth 2 times daily as needed for moderate pain 14 tablet 0 06/22/2023 06/30/2023 documented as of this encounter ED Notes * Jazmin Bird RN - 06/22/2023 4:32 PM CST Patient states she was seen at this morning for pain under right breast, patient states she was told to come to the ED if the pain moved. Patient reports the pain is now more in her right flank. Triage Assessment (Adult) Row Name 06/22/23 1632 Triage Assessment Airway WDL WDL Respiratory WDL Respiratory WDL WDL Skin Circulation/Temperature WDL Skin Circulation/Temperature WDL WDL Cardiac WDL Cardiac WDL WDL Peripheral/Neurovascular WDL Peripheral Neurovascular WDL WDL Cognitive/Neuro/Behavioral WDL Cognitive/Neuro/Behavioral WDL WDL DREN'S TUTOR * Sae Mendez MD - 06/22/2023 4:20 PM CST History Chief Complaint: Flank Pain HPI Yadi Roblero is a 23 year old female who presents for evaluation of right flank pain. Patient reports experiencing sharp 8.5/10 pain under her right breast prompting her to visit urgent care. This pain began yesterday. She reports feeling the pain now both under her right breast and in her right upper abdomen where she describes the feeling as more uncomfortable than painful. The pain is most intense when taking in a deep breath. Patient reports experiencing stomach pain, nausea, diarrhea, andshortness of breath. Denies any vomiting, urinary problems, or rashes. She has no history of DVT, PE, unilateral leg swelling, recent immobilization, hemoptysis or malignancy. Independent Historian: None Review of External Notes: None Medications: Lexapro Estradiol Past Medical History: Anxiety Normal spontaneous vaginal delivery Depression Cyst of right ovary Adjustment disorder Past Surgical History: History reviewed. No pertinent surgical history. Physical Exam Patient Vitals for the past 24 hrs: BP Temp Temp src Pulse Resp SpO2 06/22/23 1634 (!) 117/98 98.1 ??F (36.7 ??C) Oral 97 18 100 % Physical Exam HEENT: Oropharynx is moist Eyes: Conjunctiva normal Neck: Supple, no meningismus. CV: Regular rate and rhythm. No murmurs, rubs or gallops. No unilateral leg swelling. 2+ radial pulses bilateral. No lower extremity edema. PULM: Clear to auscultation bilateral. No respiratory distress. Good air exchange. No rales or wheezing. No stridor. ABD: Soft, non-distended. Mild focal tenderness of the right upper quadrant with negative Lombardi sign Right lower quadrant is nontender No pulsatile masses. No rebound, guarding or rigidity. No CVA tenderness MSK: No gross deformity to all four extremities. LYMPH: No cervical lymphadenopathy. NEURO: Alert. Good muscle tone, no atrophy. Skin: Warm, dry and intact. Psych: Mood is good and affect is appropriate. Emergency Department Course ECG ECG taken at 2042, ECG read at 2046 Normal sinus rhythm Rate 80 bpm. AK interval 140 ms. QRS duration 90 ms. QT/QTc 370/426 ms. P-R-T axes 23 61 17. Imaging: Chest XR, PA & LAT Final Result IMPRESSION: Negative chest. US Abdomen Limited Final Result IMPRESSION: 1. Normal limited abdominal ultrasound. Report per radiology Laboratory: Labs Ordered and Resulted from Time of ED Arrival to Time of ED Departure ROUTINE UA WITH MICROSCOPIC REFLEX TO CULTURE - Abnormal Result Value Color Urine Light Yellow Appearance Urine Clear Glucose Urine Negative Bilirubin Urine Negative Ketones Urine Negative Specific [place] Urine 1.016 Blood Urine Negative pH Urine 7.5 (*) Protein Albumin Urine Negative Urobilinogen Urine Normal Nitrite Urine Negative Leukocyte Esterase Urine Negative Bacteria Urine Few (*) Mucus Urine Present (*) RBC Urine <1 WBC Urine <1 Squamous Epithelials Urine 5 (*) BASIC METABOLIC PANEL - Abnormal Sodium 135 Potassium 3.8 Chloride 99 Carbon Dioxide (CO2) 25 Anion Gap 11 Urea Nitrogen 6.3 Creatinine 0.66 GFR Estimate >90 Calcium 9.2 Glucose 101 (*) HEPATIC FUNCTION PANEL - Normal Protein Total 7.8 Albumin 4.6 Bilirubin Total 0.2 Alkaline Phosphatase 51 AST 14 ALT 15 Bilirubin Direct <0.20 LIPASE - Normal Lipase 22 D DIMER QUANTITATIVE - Normal D-Dimer Quantitative 0.29 TROPONIN T, HIGH SENSITIVITY - Normal Troponin T, High Sensitivity <6 HCG QUALITATIVE URINE - Normal hCG Urine Qualitative Negative CBC WITH PLATELETS AND DIFFERENTIAL WBC Count 4.3 RBC Count 4.91 Hemoglobin 13.5 Hematocrit 41.9 MCV 85 MCH 27.5 MCHC 32.2 RDW 12.8 Platelet Count 226 % Neutrophils 67 % Lymphocytes 19 % Monocytes 14 % Eosinophils 0 % Basophils 0 % Immature Granulocytes 0 NRBCs per 100 WBC 0 Absolute Neutrophils 2.8 Absolute Lymphocytes 0.8 Absolute Monocytes 0.6 Absolute Eosinophils 0.0 Absolute Basophils 0.0 Absolute Immature Granulocytes 0.0 Absolute NRBCs 0.0 Emergency Department Course & Assessments: Interventions: Medications - No data to display Assessments: 1807 I obtained patient history and performed a physical exam. 2047 I rechecked and updated the patient. Independent Interpretation (X-rays, CTs, rhythm strip): I independently reviewed chest x-ray which shows no pneumothorax or focal infiltrate. Consultations/Discussion of Management or Tests: 1830 I spoke with [facility] about patient's recent bloodwork and labs. Social Determinants of Health affecting care: None Disposition: The patient was discharged to home. Impression & Plan Medical Decision Makin-year-old female presents with atypical right lower chest pain and right upper quadrant abdominalpain. EKG without ischemic changes. Troponin within normal limits. Low suspicion for PE. D-dimer within normal limits thus no indication for CT scan of her chest. Chest x-ray is unremarkable. She hasno features concerning for aortic dissection or aortic aneurysm. Given her associated right upper quadrant tenderness, right upper quadrant ultrasound was performedto evaluate for biliary disease. This is negative for acute pathology. The remainder of her evaluation is reassuring. Differential diagnosis would include pleurisy, peptic ulcer disease, viral illness, muscular strain. Patient safe for discharge home with supportive measures and close follow-up with PCP. Diagnosis: ICD-10-CM 1. Chest pain, unspecified type R07.9 2. Right upper quadrant abdominal pain R10.11 Discharge Medications: New Prescriptions NAPROXEN (NAPROSYN) 500 MG TABLET Take 1 tablet (500 mg) by mouth 2 times daily as needed for moderate pain Scribe Disclosure: Katie Nguyen, am serving as a scribe at 9:14 PM on 06/22/2023 to document services personally performed by Sae Mendez MD based on my observations and the provider's statements to me. Scribe Disclosure: I, Willa Garland, am serving as a scribe application trainer at 9:24 PM on 06/22/2023 to document services personally performed by Sae Mendez MD based on my observations and the provider's statements to me. 06/22/2023 Sae Mendez MD Matthews, Jeremiah R, MD 06/23/23 0045 DREN'S TUTOR documented in this encounter Plan of Treatment Not on file documented as of this encounter Procedures Procedure Name Priority Date/Time Associated Diagnosis Comments EKG 12-LEAD, TRACING ONLY STAT 06/22/2023 8:43 PM CHILDREN'S TUTOR XR CHEST 2 VIEWS STAT 06/22/2023 7:22 PM CHILDREN'S TUTOR US ABDOMEN LIMITED STAT 06/22/2023 6: 57 PM CHILDREN'S TUTOR EXTRA TUBE STAT 06/22/2023 4:46 PM CHILDREN'S TUTOR EXTRA PURPLE TOP TUBE STAT 06/22/2023 4:46 PM CHILDREN'S TUTOR EXTRA GREEN TOP (LITHIUM HEPARIN) TUBE STAT 06/22/2023 4:46 PM CHILDREN'S TUTOR EXTRA RED TOP TUBE STAT 06/22/2023 4: 46 PM CHILDREN'S TUTOR EXTRA BLUE TOP TUBE STAT 06/22/2023 4 :46 PM CHILDREN'S TUTOR CBC WITH PLATELETS AND DIFFERENTIAL STAT 06/22/2023 4:46 PM CHILDREN'S TUTOR TROPONIN T, HIGH SENSITIVITY STAT 06/22/2023 4:46 PM CHILDREN'S TUTOR CBC WITH PLATELETS & DIFFERENTIAL STAT 06/22/2023 4:46 PM CHILDREN'S TUTOR LIPASE STAT 06/22/2023 4:46 PM CHILDREN'S TUTOR HEPATIC FUNCTION PANEL STAT 06/22/2023 4:46 PM CHILDREN'S TUTOR D DIMER QUANTITATIVE STAT 06/22/2023 4:46 PM CHILDREN'S TUTOR BASIC METABOLIC PANEL STAT 06/22/2023 4:46 PM CHILDREN'S TUTOR HCG QUALITATIVE URINE STAT 06/22/2023 4:35 PM CHILDREN'S TUTOR ROUTINE UA WITH MICROSCOPIC REFLEX TO CULTURE STAT 06/22/2023 4:35 PM CHILDREN'S TUTOR documented in this encounter Results * EKG 12-lead, tracing only (06/22/2023 8:43 PM CHILDREN'S TUTOR) Systolic Blood Pressure mmHg RADIOLOGY RESULTS Diastolic Blood Pressure mmHg RADIOLOGY RESULTS Ventricular Rate 80 BPM RAD IOLOGY RESULTS Atrial Rate 80 BPM RADIOLOG Y RESULTS AK Interval 140 ms RADIOLOG Y RESULTS QRS Duration 90 ms RADIOLO GY RESULTS QT 370 ms RADIOLOGY RESULTS QTc 426 ms RADIOLOGY RESULTS P [place] 23 degrees RADIOLOGY RESULTS R AXIS 61 degrees RADIOLOGY RESULTS T [place] 17 degrees RADIOLOGY RESULTS Interpretation ECG Sinus rhythm Normal ECG When compared with ECG of 10-JAN-2023 16:49, No significant change was found Unconfirmed report - interpretation of this ECG is computer generated - see medical record for final interpretation Confirmed by - EMERGENCY ROOM, PHYSICIAN ([id number]), supervising film or videotape editor PONCE NATHAN ([id number]) on 06/23/2023 6:56:32 AM RADIOLOGY RESULTS 06/22/2023 8:43 PM CHILDREN'S TUTOR 06/23/2023 6:56 AM CHILDREN'S TUTOR Sae Mendez MD ECG ORDERABLES RADIOLOGY RESULTS * Chest XR, PA & LAT (06/22/2023 7:22 PM CHILDREN'S TUTOR) Anatomical Region Laterality Modality Chest Computed Radiogr aphy 06/22/2023 7:22 PM CHILDREN'S TUTOR Impressions 06/22/2023 7:25 PM CHILDREN'S TUTOR IMPRESSION: Negative chest. Narrative 06/22/2023 7:25 PM CHILDREN'S TUTOR EXAM: XR CHEST 2 VIEWS LOCATION: [facility] DATE: 06/22/2023 INDICATION: chest pain COMPARISON: 01/10/2023 Procedure Note Levy Ndiaye MD - 06/22/2023 EXAM: XR CHEST 2 VIEWS LOCATION: [facility] DATE: 06/22/2023 INDICATION: chest pain COMPARISON: 01/10/2023 IMPRESSION: Negative chest. Sae Mendez MD [facility] DIAGNOSTIC IM AGING ORDERABLES * US Abdomen Limited (06/22/2023 6:57 PM CHILDREN'S TUTOR) Anatomical Region Laterality Modality Abdomen/Pelvis Ultrasound 06/22/2023 6:57 PM CHILDREN'S TUTOR Impressions 06/22/2023 7:04 PM CHILDREN'S TUTOR IMPRESSION: 1. ??Normal limited abdominal ultrasound. Narrative 06/22/2023 7:04 PM CHILDREN'S TUTOR EXAM: US ABDOMEN LIMITED LOCATION: [facility] DATE: 06/22/2023 INDICATION: RUQ pain COMPARISON: None. TECHNIQUE: Limited abdominal ultrasound. FINDINGS: GALLBLADDER: Normal. No gallstones, wall thickening, or pericholecystic fluid. Negative sonographic Lombardi's sign. BILE DUCTS: No biliary dilatation. The common duct measures 3.2 mm. LIVER: Normal parenchyma with smooth contour. No focal mass. RIGHT KIDNEY: No hydronephrosis. PANCREAS: The visualized portions are normal. No ascites. Procedure Note Ramos Gonzalez MD - 06/22/2023 EXAM: US ABDOMEN LIMITED LOCATION: [facility] DATE: 06/22/2023 INDICATION: RUQ pain COMPARISON: None. TECHNIQUE: Limited abdominal ultrasound. FINDINGS: GALLBLADDER: Normal. No gallstones, wall thickening, or pericholecysticfluid. Negative sonographic Lombardi's sign. BILE DUCTS: No biliary dilatation. The common duct measures 3.2 mm. LIVER: Normal parenchyma with smooth contour. No focal mass. RIGHT KIDNEY: No hydronephrosis. PANCREAS: The visualized portions are normal. No ascites. IMPRESSION: 1. Normal limited abdominal ultrasound. Sae Mendez MD [facility] US ORDERABLES * Troponin T, High Sensitivity (now) (06/22/2023 4:46 PM CHILDREN'S TUTOR) [facility] Troponin T, High Sensitivity <6 <=14 ng/L 06/22/2023 7:09 PM CHILDREN'S TUTOR LABORATORY Comment: Either a High Sensitivity Troponin [...] UPPER LIMB / Unknown Venipuncture / Unknown 06/22/2023 4:46 PM CHILDREN'S TUTOR 06/22/2023 5:00 PM CHILDREN'S TUTOR Sae Mendez MD LAB - BLOOD ORDER CLAUDIA [facility] [address] [facility] Lab (1st floor, no room number) [place] [address], [facility] [phone] * D dimer quantitative (06/22/2023 4:46 PM CHILDREN'S TUTOR) [facility] D-Dimer Quantitative 0.29 0.00 - 0.50 ug/mL FEU 06/22/2023 6:36 PM CHILDREN'S TUTOR LABORATORY Blood STRUCTURE OF RIGHT UPPER LIMB / Unknown Venipuncture / Unknown 06/22/2023 4:46 PM CHILDREN'S TUTOR 06/22/2023 4:59 PM CHILDREN'S TUTOR Narrative LABORATORY - 06/22/2023 6:36 PM CHILDREN'S TUTOR This D-dimer assay is intended for use in conjunction with a clinical pretest probability assessment model to exclude pulmonary embolism (PE) and deep venous thrombosis (DVT) in outpatients suspected of PE or DVT. The cut-off value is 0.50 ug/mL FEU. Sae Mendez MD LAB - BLOOD ORDER CLAUDIA Performing Organization Address City/[facility]/ZIP Co de Phone Number [facility] [address] Lab (1st floor, no room number) [place] [address], [facility] [phone] * Lipase (06/22/2023 4:46 PM CHILDREN'S TUTOR) Lipase 22 13 - 60 U/L 06/22/2023 7:11 PM CHILDREN'S TUTOR LABORATORY Blood STRUCTURE OF RIGHT UPPER LIMB / Unknown Venipuncture / Unknown 06/22/2023 4:46 PM CHILDREN'S TUTOR 06/22/2023 5:00 PM CHILDREN'S TUTOR Sae Mendez MD LAB - BLOOD ORDER CLAUDIA Performing Organization Address [facility]/ZIP Co de Phone Number LABORATORY [facility] Acute Care Lab [address] Lab (1st floor, no room number) [place] [address], [facility] [phone] * Hepatic function panel (06/22/2023 4:46 PM CHILDREN'S TUTOR) Protein Total 7.8 6.4 - 8.3 g/dL 06/22/2023 7:11 PM CHILDREN'S TUTOR [facility] LAB[facility]ATORY Albumin 4.6 3.5 - 5.2 g/dL 06/22/2023 7:11 PM CHILDREN'S T[facility]OR LABORATORY Bilirubin Total 0.2 <=1.2 mg/dL 06/22/2023 7:11 PM CHILDREN'S TUTOR [facility]OR[facility] Alkaline Phosphatase 51 40 - 150 U/L 06/22/2023 7:11 PM CHILDREN'S TUTOR [facility] Comment:Reference intervals for this test were updated on 04/05/2023 to more accurately reflect our healthy population. There may be differences in the flagging of prior results with similar values performed with this method. Interpretation of those prior results can be made in the context of the updated reference intervals. AST 14 0 - 45 U/L 06/22/2023 7:11 PM CHILDREN'S TUTOR [facility]OR[facility] Comment:Reference intervals for this test were updated on 11/01/2022 to more accurately reflect our healthy population. There may be differences in the flagging of prior results with similar values performed with this method. Interpretation of those prior results can be made in the context of the updated reference intervals. ALT 15 0 - 50 U/L 06/22/2023 7:11 PM CHILDREN'S TUTOR [facility] Comment:Reference intervals for this test were updated on 11/01/2022 to more accurately reflect our healthy population. There may be differences in the flagging of prior results with similar values performed with this method. Interpretation of those prior results can be made in the context of the updated reference intervals. Bilirubin Direct <0.20 0.00 - 0.30 mg/dL 06/22/2023 7:11 PM CHILDREN'S TUTOR [facility] LABOR[facility] Blood STRUCTURE OF RIGHT UPPER LIMB / Unknown Venipuncture / Unknown 06/22/2023 4:46 PM CHILDREN'S TUTOR 06/22/2023 5:00 PM CHILDREN'S TUTOR Sae Mendez MD LAB - BLOOD ORDER CLAUDIA [facility] LABORATORY [facility] Acute Care Lab [address] [facility] Lab (1st floor, no room number) [place] [address], [facility] [phone] * CBC with platelets and differential (06/22/2023 4:46 PM CHILDREN'S TUTOR) WBC Count 4.3 4.0 - 11.0 10e3/uL 06/22/2023 5:04 PM CHILDREN'S TUTOR [facility] LABOR[facility] RBC Count 4.91 3.80 - 5.20 10e6/uL 06/22/2023 5:04 PM CHILDREN'S TUTOR [facility] LAB[facility] Hemoglobin 13.5 11.7 - 15.7 g/dL 06/22/2023 5:04 PM CHILDREN'S TUTOR [facility] LABORATORY Hematocrit 41.9 35.0 - 47.0 % 06/22/2023 5:04 PM CHILDREN'S TUTOR [facility] LABORATORY MCV 85 78 - 100 fL 06/22/2023 5:04 PM CHILDREN'S TUTOR [facility] LABORATORY MCH 27.5 26.5 - 33.0 pg 06/22/2023 5:04 PM CHILDREN'S TUTOR [facility] LABORATORY MCHC 32.2 31.5 - 36.5 g/dL 06/22/2023 5:04 PM CHILDREN'S TUTOR [facility] LAB[facility]ATORY RDW 12.8 10.0 - 15.0 % 06/22/2023 5:04 PM CHILDREN'S TUTOR [facility] LAB[facility]ORY Platelet Count 226 150 - 450 10e3/uL 06/22/2023 5:04 PM CHILDREN'S TUTOR [facility] % Neutrophils 67 % 06/22/2023 5:04 PM CHILDREN'S TUTOR [facility] % Lymphocytes 19 % 06/22/2023 5:04 PM CHILDREN'S TUTOR [facility] % Monocytes 14 % 06/22/2023 5:04 PM CHILDREN'S TUTOR [facility] % Eosinophils 0 % 06/22/2023 5:04 PM CHILDREN'S TUTOR [facility] LAB[facility] % Basophils 0 % 06/22/2023 5:04 PM CHILDREN'S TUTOR [facility] LAB[facility] % Immature Granulocytes 0 % 06/22/2023 5:04 PM [facility] NRBCs per 100 WBC 0 <1 /100 024 5:04 PM [facility] Absolute Neutrophils 2.8 1.6 - 8.3 10e3/uL 06/22/2023 5:04 PM [facility] Absolute Lymphocytes 0.8 0.8 - 5.3 10e3/uL 06/22/2023 5:04 PM [facility] Absolute Monocytes 0.6 0.0 - 1.3 10e3/uL 06/22/2023 5:04 PM [facility] Absolute Eosinophils 0.0 0.0 - 0.7 10e3/uL 06/22/2023 5:04 PM [facility] Absolute Basophils 0.0 0.0 - 0.2 10e3/uL 06/22/2023 5:04 PM [facility] Absolute Immature Granulocytes 0.0 <=0.4 10e3/uL 06/22/2023 5:04 PM [facility] Absolute NRBCs 0.0 10e3/uL 06/22/2023 5:04 PM [facility] Blood STRUCTURE OF RIGHT UPPER LIMB / Unknown Venipuncture / Unknown 06/22/2023 4:46 PM [facility] 06/22/2023 4:59 PM [facility] Sae Mendez MD LAB - BLOOD ORDER CLAUDIA [facility] Acute Care Lab [address] Lab (1st floor, no room number) [place] [address], [facility] [phone] * Extra Purple Top Tube (06/22/2023 4:46 PM [facility]) Hold Specimen [facility] 06/22/2023 6:03 PM [facility] Blood STRUCTURE OF RIGHT UPPER LIMB / Unknown Venipuncture / Unknown 06/22/2023 4:46 PM [facility] 06/22/2023 5:00 PM [facility] Sae Mendez MD LAB - BLOOD ORDER CLAUDIA [facility] Care Lab [address] Lab (1st floor, no room number) [place] [address], [facility] [phone] * Extra Green Top ([place] Heparin) Tube (06/22/2023 4:46 PM [facility]) Hold Specimen [facility] 06/22/2023 6:03 PM [facility] Blood STRUCTURE OF RIGHT UPPER LIMB / Unknown Venipuncture / Unknown 06/22/2023 4:46 PM [facility] 06/22/2023 4:59 PM [facility] Sae Mendez MD LAB - BLOOD ORDER CLAUDIA [facility] [address] Lab (1st floor, no room number) [place] [address], [place] [phone] * Extra Red Top Tube (06/22/2023 4:46 PM [facility]) Hold Specimen [facility] 06/22/2023 6:03 PM [facility] Blood STRUCTURE OF RIGHT UPPER LIMB / Unknown Venipuncture / Unknown 06/22/2023 4:46 PM [facility] 06/22/2023 4:59 PM [facility] Sae Mendez MD LAB - BLOOD ORDER CLAUDIA [facility] Lab [address] Lab (1st floor, no room number) [place] [address], [facility] [phone] * Extra Blue Top Tube (06/22/2023 4:46 PM [facility]) Hold Specimen [facility] 06/22/2023 6:03 PM [facility] Blood STRUCTURE OF RIGHT UPPER LIMB / Unknown Venipuncture / Unknown 06/22/2023 4:46 PM [facility] 06/22/2023 4:59 PM [facility] Sae Mendez MD LAB - BLOOD ORDER CLAUDIA [facility] Acute Care Lab [address] Lab (1st floor, no room number) [place] [address], [facility] [phone] * (ABNORMAL) Basic metabolic panel (BMP) (06/22/2023 4:46 PM [facility]) [facility] Sodium 135 135 - 145 mmol/L 06/22/2023 5:22 PM [facility] Comment:Reference intervals for this test were updated on 02/15/2023 to more accurately reflect our healthy population. There may be differences in the flagging of prior results with similar values performed with this method. Interpretation of those prior results can be made in the context of the updated reference intervals. Potassium 3.8 3.4 - 5.3 mmol/L 06/22/2023 5:22 PM [facility] Chloride 99 98 - 107 mmol/L 06/22/2023 5:22 PM [facility] Carbon Dioxide (CO2) 25 22 - 29 mmol/L 06/22/2023 5:22 PM [facility] Anion Gap 11 7 - 15 mmol/L 06/22/2023 5:22 PM [facility] Urea Nitrogen 6.3 6.0 - 20.0 mg/dL 06/22/2023 5:22 PM [facility] Creatinine 0.66 0.51 - 0.95 mg/dL 06/22/2023 5:22 PM [facility] GFR Estimate >90 >60 mL/min/1. 73m2 06/22/2023 5:22 PM [facility] Calcium 9.2 8.6 - 10.0 mg/dL 06/22/2023 5:22 PM [facility] Glucose 101(H) 70 - 99 mg/dL 06/22/2023 5:22 PM [facility] Blood STRUCTURE OF RIGHT UPPER LIMB / Unknown Venipuncture / Unknown 06/22/2023 4:46 PM [facility] 06/22/2023 5:00 PM [facility] Sae Mendez MD LAB - BLOOD ORDER CLAUDIA Performing Organization Address City/[facility]/ZIP Co de Phone Number [facility] [address] Lab (1st floor, no room number) [place] [address], [facility] [phone] * HCG qualitative urine (UPT) (06/22/2023 4:35 PM [facility]) hCG Urine Qualitative Negative Negative [place] 06/22/2023 8:01 PM [facility] Comment:This test is for scr eening purposes. Results should be interpreted along with the clinical picture. Confirmation testing is available if warranted by ordering [id number], HCG Quantitative . Urine MID-STREAM URINE SPECIMEN / Unknown Non-blood Collection / Unknown 06/22/2023 4:35 PM [facility] 06/22/2023 7:15 PM [facility] Sae Mendez MD LAB - URINE ORDER CLADUIA Performing Organization Address [facility]/ZIP Co de Phone Number [facility] Lab [address] Lab (1st floor, no room number) [place] [address], [facility] [phone] * (ABNORMAL) UA with Microscopic reflex to Culture (06/22/2023 4:35 PM [facility]) Color Urine Light Yellow Colorless, Straw, Light Yellow, Yellow 06/22/2023 7:41 PM [facility] Appearance Urine Clear Clear 06/22/19 24 7:41 PM [facility] Glucose Urine Negative Negative mg/dL 06/22/2023 7:41 PM [facility] Bilirubin Urine Negative Negative 7:41 PM [facility] Ketones Urine Negative Negative mg/dL 06/22/2023 7:41 PM [facility] Specific [place] Urine 1.016 1.003 - 1.035 06/22/2023 7:41 PM [facility] Blood Urine Negative Negative 06/22/2023 7:41 PM [facility] pH Urine 7.5(H) 5.0 - 7.0 06/22/2023 7:41 PM [facility] Protein Albumin Urine Negative Negative mg/dL 06/22/2023 7:41 PM [facility] Urobilinogen Urine Normal Normal, 2.0 mg/dL 06/22/2023 7:41 PM [facility] Nitrite Urine Negative Negative 06/22/2023 7:41 PM [facility] Leukocyte Esterase Urine Negative Negative 06/22/2023 7:41 PM [facility] Bacteria Urine Few(A) None Seen /HPF 06/22/2023 7:41 PM [facility] Mucus Urine Present(A) None Seen /LPF 06/22/2023 7:41 PM [facility] RBC Urine <1 <=2 /HPF 06/22/2023 7:41 PM [facility] WBC Urine <1 <=5 /HPF 06/22/2023 7:41 PM [facility] Squamous Epithelials Urine 5(H) <=1 /HPF 06/22/2023 7:41 PM [facility] Urine MID-STREAM URINE SPECIMEN / Unknown Non-blood Collection / Unknown 06/22/2023 4:35 PM [facility] 06/22/2023 7:15 PM [facility] Narrative [facility] - 06/22/2023 7:41 PM [facility] Urine Culture not indicated Sae Mendez MD LAB - URINE ORDER CLAUDIA [facility] Acute Care Lab [address] Lab (1st floor, no room number) [place] [address], [facility] [phone] documented in this encounter Visit Diagnoses Diagnosis Chest pain, unspecified type Right upper quadrant abdominal pain Abdominal pain, right upper quadrant documented in this encounter Additional Health Concerns Assessment Noted Time PHQ-9 Depression Total Score: 9 08/29/19 24 7:11 AM CDT documented as of this encounter Care Teams Care Transition Mgr Relationship Specialty [place] [address] [place] [address] PCP - General Family Practice 11/27/18 [place] [address] [place] [address] Assigned PCP 05/11/20 documented as of this encounter
--- OUTSIDE RECORDS SUMMARY | 2023-08-29 14:51 | XMS_ITS | Clinical Summary ---
Author Name Unknown Organization [facility] Address [address] [place] [address] Care Team Providers Care Detective Precinct Name Role Phone Leslie Silvestre MD Primary Care Provider [phone] Leslie Silvestre MD Unavailable [phone] Allergies Active Allergy Reactions Criticality Noted [...] Encounters Date Type Department Care Team Description 08/03/2023 Travel 06/26/2023 11:45 AM SHEET METAL MECHANIC - 06/26/2023 2:28 PM SHEET METAL MECHANIC Emergency [facility] [address] [place] [address] Barry Duran MD Right sided abdominal pain; Diarrhea, unspecified type Discharge Disposition: Home or Self Care 06/26/2023 Travel 06/22/2023 5:52 PM SHEET METAL MECHANIC - 06/22/2023 9:22 PM SHEET METAL MECHANIC Emergency [facility] [address] [place] [address] Sae Mendez MD Chest pain, unspecified type; Right upper quadrant abdominal pain Discharge Disposition: Home or Self Care 06/22/2023 Travel from Last 3 Months Immunizations Name [...] often do you attend chur ch or christianity services? Never 07/05/2022 Do you belong to any clubs o r organizations such as adventist groups, unions, fraternal or athletic groups, or [...] Answer Date Recorded PHQ-2 Score 5 01/31/2023 [facility] - Occupational [...] a fpc (including now)? Patient refused 07/05/2022 [place] Depression Scale Answer Date Recorded [place] Depression Score 0 12/07/2018 Last EPDS Self Harm Result Not on file 12/07 Education Answer Date Recorded What is the highest level of school you have completed or the highest degree you have received? 12th grade 06/28/2019 Sex and Gender Information Value Date Recorded Sex Assigned at Female 06/28/2018 11:22 AM SHEET METAL MECHANIC Gender Identity Female 06/28/2018 11:22 AM SHEET METAL MECHANIC Sexual Orientation Not on file Last Filed Vital Signs Vital Sign Reading Time Taken Comments Blood Pressure 125/80 06/26/2023 11:13 AM SHEET METAL MECHANIC Pulse 82 06/26/2023 11:13 AM SHEET METAL MECHANIC Temperature 36.7 ??C (98 ??F) 06/26/2023 11:13 AM SHEET METAL MECHANIC Respiratory Rate 20 06/26/2023 11:13 AM SHEET METAL MECHANIC Oxygen Saturation 100% 06/26/2023 11:13 AM SHEET METAL MECHANIC Inhaled Oxygen Concentration - - Weight 54.4 kg (120 lb) 01/31/2023 9:58 AM CDT Height 160 cm (5' 3) 01/31/2023 9:58 AM CDT Body Mass Index 21.26 01/31/2023 9:58 AM CDT Plan of Treatment Health Maintenance Due Date Last Done Comments COVID-19 Vaccine ( season) 2023 INFLUENZA VACCINE (#1) 2023 , 04/17/2018, 02/20/2018, Additional history exists ANNUAL REVIEW OF HM ORDERS 07/05/2023 07/05/2022, YEARLY PREVENTIVE VISIT 07/05/2023 07/05/19 23, 04/30/2020, 06/28/2019, Additional history exists DEPRESSION 6 MO INDEX REPEAT PHQ-9 08/17/2023 08/03/2023, 01/31/2023, 04/30/2020, Additional history exists PHQ-9 02/03/2024 08/03/2023, 01/21, 04/30/2020, Additional history exists PAP 03/17/2025 03/17/2022, 12/0 01/2020, 06/28/2019 ADVANCE CARE PLANNING 07/05/2027 07/05/2022 [...] Procedure Name Priority Date/Time Associated Diagnosis Comments CT ABDOMEN PELVIS W CONTRAST STAT 06/26/2023 1:38 PM SHEET METAL MECHANIC CBC WITH PLATELETS & DIFFERENTIAL STAT 06/26/2023 12:48 PM SHEET METAL MECHANIC CBC WITH PLATELETS AND DIFFERENTIAL STAT 06/26/2023 12:48 PM SHEET METAL MECHANIC LIPASE STAT 06/26/2023 12:48 PM SHEET METAL MECHANIC ISTAT HCG QUALITATIVE POCT STAT 06/26/2023 12:46 PM SHEET METAL MECHANIC ROUTINE UA WITH MICROSCOPIC STAT 06/26/2023 12:40 PM SHEET METAL MECHANIC EKG 12-LEAD, TRACING ONLY STAT 06/22/2023 8:43 PM SHEET METAL MECHANIC XR CHEST 2 VIEWS STAT 06/22/2023 7:22 PM SHEET METAL MECHANIC US ABDOMEN LIMITED STAT 06/22/2023 6: 57 PM SHEET METAL MECHANIC CBC WITH PLATELETS & DIFFERENTIAL STAT 06/22/2023 4:46 PM SHEET METAL MECHANIC TROPONIN T, HIGH SENSITIVITY STAT 06/22/2023 4:46 PM SHEET METAL MECHANIC D DIMER QUANTITATIVE STAT 06/22/2023 4:46 PM SHEET METAL MECHANIC LIPASE STAT 06/22/2023 4:46 PM SHEET METAL MECHANIC HEPATIC FUNCTION PANEL STAT 06/22/2023 4:46 PM SHEET METAL MECHANIC CBC WITH PLATELETS AND DIFFERENTIAL STAT 06/22/2023 4:46 PM SHEET METAL MECHANIC EXTRA PURPLE TOP TUBE STAT 06/22/2023 4:46 PM SHEET METAL MECHANIC EXTRA GREEN TOP (LITHIUM HEPARIN) TUBE STAT 06/22/2023 4:46 PM SHEET METAL MECHANIC EXTRA RED TOP TUBE STAT 06/22/2023 4: 46 PM SHEET METAL MECHANIC EXTRA BLUE TOP TUBE STAT 06/22/2023 4 :46 PM SHEET METAL MECHANIC BASIC METABOLIC PANEL STAT 06/22/2023 4:46 PM SHEET METAL MECHANIC EXTRA TUBE STAT 06/22/2023 4:46 PM SHEET METAL MECHANIC HCG QUALITATIVE URINE STAT 06/22/2023 4:35 PM SHEET METAL MECHANIC ROUTINE UA WITH MICROSCOPIC REFLEX TO CULTURE STAT 06/22/2023 4:35 PM SHEET METAL MECHANIC from Last 3 Months Results * CT Abdomen Pelvis w Contrast (06/26/2023 1:38 PM SHEET METAL MECHANIC) Anatomical Region Laterality Modality Abdomen/Pelvis, SUBRAD CT ROMAINE DY, UMP CT ABDOMEN PELVIS, RAD CT Computed Tomography 06/26/2023 1:38 PM SHEET METAL MECHANIC Impressions 06/26/2023 1:53 PM SHEET METAL MECHANIC IMPRESSION: 1. ??Negative CT abdomen and pelvis. No abnormality to account for right lower quadrant pain. Narrative 06/26/2023 1:53 PM SHEET METAL MECHANIC EXAM: CT ABDOMEN PELVIS W CONTRAST LOCATION: [facility] DATE: 06/26/2023 INDICATION: Right lower quadrant abdominal pain. COMPARISON: Pelvic ultrasound 04/06/2023 TECHNIQUE: CT scan of the abdomen and pelvis was performed following injection of IV contrast. Multiplanar reformats were obtained. Dose reduction techniques were used. CONTRAST: 60mL Isovue 370 FINDINGS: LOWER CHEST: Negative. HEPATOBILIARY: Hypodensity along the interlobar fissure compatible with perfusion anomaly versus focal fat. Segment for simple cyst does not require imaging follow-up. Normal gallbladder and biliary system. PANCREAS: Normal. SPLEEN: Normal. ADRENAL GLANDS: Normal. KIDNEYS/BLADDER: Normal. BOWEL: No obstruction or inflammatory change. Normal appendix. LYMPH NODES: No lymphadenopathy. VASCULATURE: No aortoiliac aneurysm. PELVIC ORGANS: Normal-appearing uterus and ovaries. Incidental corpus luteum right ovary. MUSCULOSKELETAL: No suspicious osseous lesions. Procedure Note Barrera Martinez MD - 06/26/2023 EXAM: CT ABDOMEN PELVIS W CONTRAST LOCATION: [facility] DATE: 06/26/2023 INDICATION: Right lower quadrant abdominal pain. COMPARISON: Pelvic ultrasound 04/06/2023 TECHNIQUE: CT scan of the abdomen and pelvis was performed followinginjection of IV contrast. Multiplanar reformats were obtained. Dosereduction techniques were used. CONTRAST: 60mL Isovue 370 FINDINGS: LOWER CHEST: Negative. HEPATOBILIARY: Hypodensity along the interlobar fissure compatible withperfusion anomaly versus focal fat. Segment for simple cyst does notrequire imaging follow-up. Normal gallbladder and biliary system. PANCREAS: Normal. SPLEEN: Normal. ADRENAL GLANDS: Normal. KIDNEYS/BLADDER: Normal. BOWEL: No obstruction or inflammatory change. Normal appendix. LYMPH NODES: No lymphadenopathy. VASCULATURE: No aortoiliac aneurysm. PELVIC ORGANS: Normal-appearing uterus and ovaries. Incidental corpusluteum right ovary. MUSCULOSKELETAL: No suspicious osseous lesions. IMPRESSION: 1. Negative CT abdomen and pelvis. No abnormality to account for rightlower quadrant pain. Barry Duran MD IMG CT ORDERABLE S * CBC with platelets and differential (06/26/2023 12:48 PM SHEET METAL MECHANIC) Only the most recent of2 resultswithin the time period is included. [facility] WBC Count 6.7 4.0 - 11.0 10e3/uL 06/26/2023 1:18 PM SHEET METAL MECHANIC [facility] RBC Count 4.86 3.80 - 5.20 10e6/uL 06/26/2023 1:18 PM SHEET METAL MECHANIC [facility] Hemoglobin 13.4 11.7 - 15.7 g/dL 06/26/2023 1:18 PM SHEET METAL MECHANIC [facility] Hematocrit 41.8 35.0 - 47.0 % 06/26/2023 1:18 PM SHEET METAL MECHANIC [facility] MCV 86 78 - 100 fL 06/26/2023 1:18 PM SHEET METAL MECHANIC [facility] MCH 27.6 26.5 - 33.0 pg 06/26/2023 1:18 PM SHEET METAL MECHANIC [facility] MCHC 32.1 31.5 - 36.5 g/dL 06/26/2023 1:18 PM SHEET METAL MECHANIC [facility] RDW 12.3 10.0 - 15.0 % 06/26/2023 1:18 PM SHEET METAL MECHANIC [facility] Platelet Count 226 150 - 450 10e3/uL 06/26/2023 1:18 PM SHEET METAL MECHANIC [facility] % Neutrophils 68 % 06/26/2023 1:18 PM SHEET METAL MECHANIC [facility] % Lymphocytes 27 % 06/26/2023 1:18 PM SHEET METAL MECHANIC [facility] % Monocytes 5 % 06/26/2023 1:18 PM SHEET METAL MECHANIC [facility] % Eosinophils 0 % 06/26/2023 1:18 PM SHEET METAL MECHANIC [facility] % Basophils 0 % 06/26/2023 1:18 PM SHEET METAL MECHANIC [facility] % Immature Granulocytes 0 % 06/26/2023 1:18 PM SHEET METAL MECHANIC [facility] NRBCs per 100 WBC 0 <1 /100 024 1:18 PM SHEET METAL MECHANIC [facility] Absolute Neutrophils 4.5 1.6 - 8.3 10e3/uL 06/26/2023 1:18 PM SHEET METAL MECHANIC [facility] Absolute Lymphocytes 1.8 0.8 - 5.3 10e3/uL 06/26/2023 1:18 PM SHEET METAL MECHANIC [facility] Absolute Monocytes 0.4 0.0 - 1.3 10e3/uL 06/26/2023 1:18 PM SHEET METAL MECHANIC [facility] Absolute Eosinophils 0.0 0.0 - 0.7 10e3/uL 06/26/2023 1:18 PM SHEET METAL MECHANIC [facility] Absolute Basophils 0.0 0.0 - 0.2 10e3/uL 06/26/2023 1:18 PM SHEET METAL MECHANIC [facility] Absolute Immature Granulocytes 0.0 <=0.4 10e3/uL 06/26/2023 1:18 PM SHEET METAL MECHANIC [facility] Absolute NRBCs 0.0 10e3/uL 06/26/2023 1:18 PM SHEET METAL MECHANIC [facility] Blood BLOOD SPECIMEN / Unknown Venipuncture / Unknown 06/26/2023 12:48 PM SHEET METAL MECHANIC 06/26/2023 1:17 PM SHEET METAL MECHANIC Barry Duran MD LAB - BLOOD ORDEugene ARIAS [facility] [address] Lab (1st floor, no room number) [place] [address], [facility] [phone] * Lipase (06/26/2023 12:48 PM SHEET METAL MECHANIC) Only the most recent of2 resultswithin the time period is included. [facility] Lipase 31 13 - 60 U/L 06/26/2023 1:53 PM SHEET METAL MECHANIC LABORATORY Blood BLOOD SPECIMEN / Unknown Venipuncture / Unknown 06/26/2023 12:48 PM SHEET METAL MECHANIC 06/26/2023 1:33 PM SHEET METAL MECHANIC Barry Duran MD LAB - BLOOD ORDEugene ARIAS [facility] [address] Lab (1st floor, no room number) [place] [address], [facility] [phone] * iStat HCG Qualitative , POCT (06/26/2023 12:46 PM SHEET METAL MECHANIC) Pathologist [facility] HCG Qualitative POCT Negative Negative, Indeterminate 06/26/2023 1:00 PM SHEET METAL MECHANIC LABORATORY POC Blood, venous BLOOD SPECIMEN / Unknown 06/26/2023 12:46 PM SHEET METAL MECHANIC 06/26/2023 1:00 PM SHEET METAL MECHANIC Barry Duran MD LAB - BEAKER POC T [facility] POC [facility] [address] Lab (1st floor, no room number) [place] [address], [facility] [phone] * (ABNORMAL) UA with Microscopic (06/26/2023 12:40 PM SHEET METAL MECHANIC) Color Urine Straw Colorless, Straw, Light Yellow, Yellow 06/26/2023 1:26 PM SHEET METAL MECHANIC LABORATORY Appearance Urine Clear Clear 06/26/19 1:26 PM SHEET METAL MECHANIC LABORATORY Glucose Urine Negative Negative mg/dL 06/26/2023 1:26 PM SHEET METAL MECHANIC LABORATORY Bilirubin Urine Negative Negative 1:26 PM SHEET METAL MECHANIC LABORATORY Ketones Urine Negative Negative mg/dL 06/26/2023 1:26 PM SHEET METAL MECHANIC LABORATORY Specific [place] Urine 1.005 1.003 - 1.035 06/26/2023 1:26 PM SHEET METAL MECHANIC LABORATORY Blood Urine Negative Negative 06/26/2023 1:26 PM SHEET METAL MECHANIC LABORATORY pH Urine 6.5 5.0 - 7.0 06/26/2023 1:26 PM SHEET METAL MECHANIC LABORATORY Protein Albumin Urine Negative Negative mg/dL 06/26/2023 1:26 PM SHEET METAL MECHANIC LABORATORY Urobilinogen Urine Normal Normal, 2.0 mg/dL 06/26/2023 1:26 PM SHEET METAL MECHANIC LABORATORY Nitrite Urine Negative Negative 06/26/2023 1:26 PM SHEET METAL MECHANIC LABORATORY Leukocyte Esterase Urine Negative Negative 06/26/2023 1:26 PM SHEET METAL MECHANIC LABORATORY Bacteria Urine Few(A) None Seen /HPF 06/26/2023 1:26 PM SHEET METAL MECHANIC LABORATORY RBC Urine <1 <=2 /HPF 06/26/2023 1:26 PM SHEET METAL MECHANIC LABORATORY WBC Urine 1 <=5 /HPF 06/26/2023 1:26 PM SHEET METAL MECHANIC LABORATORY Squamous Epithelials Urine 3(H) <=1 /HPF 06/26/2023 1:26 PM SHEET METAL MECHANIC LABORATORY Urine URINE SPECIMEN OBTAINED BY CLEAN CATCH PROCEDURE / Unknown Non-blood Collection / Unknown 06/26/2023 12:40 PM SHEET METAL MECHANIC 06/26/2023 1:01 PM SHEET METAL MECHANIC Barry Duran MD LAB - URINE ORDE [facility] [address] Lab (1st floor, no room number) [place] [address], [facility] [phone] * EKG 12-lead, tracing only (06/22/2023 8:43 PM SHEET METAL MECHANIC) Systolic Blood Pressure mmHg RADIOLOGY RESULTS Diastolic Blood Pressure mmHg RADIOLOGY RESULTS Ventricular Rate 80 BPM RAD IOLOGY RESULTS Atrial Rate 80 BPM RADIOLOG Y RESULTS OR Interval 140 ms RADIOLOG Y RESULTS QRS Duration 90 ms RADIOLO GY RESULTS QT 370 ms RADIOLOGY RESULTS QTc 426 ms RADIOLOGY RESULTS P [place] 23 degrees RADIOLOGY RESULTS R AXIS 61 degrees RADIOLOGY RESULTS T [place] 17 degrees RADIOLOGY RESULTS Interpretation ECG Sinus rhythm Normal ECG When compared with ECG of 10-JAN-2023 16:49, No significant change was found Unconfirmed report - interpretation of this ECG is computer generated - see medical record for final interpretation Confirmed by - EMERGENCY ROOM, PHYSICIAN ([id number]), script editor OPNCE NATHAN ([id number]) on 06/23/2023 6:56:32 AM RADIOLOGY RESULTS 06/22/2023 8:43 PM SHEET METAL MECHANIC 06/23/2023 6:56 AM SHEET METAL MECHANIC Sae Mendez MD ECG ORDERABLES RADIOLOGY RESULTS * Chest XR, PA & LAT (06/22/2023 7:22 PM SHEET METAL MECHANIC) Anatomical Region Laterality Modality Chest Computed Radiogr aphy 06/22/2023 7:22 PM SHEET METAL MECHANIC Impressions 06/22/2023 7:25 PM SHEET METAL MECHANIC IMPRESSION: Negative chest. Narrative 06/22/2023 7:25 PM SHEET METAL MECHANIC EXAM: XR CHEST 2 VIEWS LOCATION: [facility] DATE: 06/22/2023 INDICATION: chest pain COMPARISON: 01/10/2023 Procedure Note Levy Ndiaye MD - 06/22/2023 EXAM: XR CHEST 2 VIEWS LOCATION: [facility] DATE: 06/22/2023 INDICATION: chest pain COMPARISON: 01/10/2023 IMPRESSION: Negative chest. Sae Mendez MD [facility] [place] DIAGNOSTIC IM AGING ORDERABLES * US Abdomen Limited (06/22/2023 6:57 PM SHEET METAL MECHANIC) Anatomical Region Laterality Modality Abdomen/Pelvis Ultrasound 06/22/2023 6:57 PM SHEET METAL MECHANIC Impressions 06/22/2023 7:04 PM SHEET METAL MECHANIC IMPRESSION: 1. ??Normal limited abdominal ultrasound. Narrative 06/22/2023 7:04 PM SHEET METAL MECHANIC EXAM: US ABDOMEN LIMITED LOCATION: [facility] DATE: 06/22/2023 INDICATION: RUQ pain COMPARISON: None. [...] - 06/22/2023 EXAM: US ABDOMEN LIMITED LOCATION: [facility] DATE: 06/22/2023 INDICATION: RUQ pain COMPARISON: None. [...] [facility] [place] US ORDERABLES * Extra Purple Top Tube (06/22/2023 4:46 PM SHEET METAL MECHANIC) Pathologist [facility] Hold Specimen [facility] 06/22/2023 6:03 PM SHEET METAL MECHANIC [facility] Blood STRUCTURE OF RIGHT UPPER LIMB / Unknown Venipuncture / Unknown 06/22/2023 4:46 PM SHEET METAL MECHANIC 06/22/2023 5:00 PM SHEET METAL MECHANIC Sae Mendez MD LAB - BLOOD ORDER CLAUDIA [facility] [address] Lab (1st floor, no room number) [place] [address], [facility] [phone] * Extra Green Top ([place] Heparin) Tube (06/22/2023 4:46 PM SHEET METAL MECHANIC) Hold Specimen [facility] 06/22/2023 6:03 PM SHEET METAL MECHANIC [facility] Blood STRUCTURE OF RIGHT UPPER LIMB / Unknown Venipuncture / Unknown 06/22/2023 4:46 PM SHEET METAL MECHANIC 06/22/2023 4:59 PM SHEET METAL MECHANIC Sae Mendez MD LAB - BLOOD ORDER CLAUD[facility] [address] Lab (1st floor, no room number) [place] [address], [facility] [phone] * Extra Red Top Tube (06/22/2023 4:46 PM SHEET METAL MECHANIC) Hold Specimen [facility] 06/22/2023 6:03 PM SHEET METAL MECHANIC [facility] Blood STRUCTURE OF RIGHT UPPER LIMB / Unknown Venipuncture / Unknown 06/22/2023 4:46 PM SHEET METAL MECHANIC 06/22/2023 4:59 PM SHEET METAL MECHANIC Sae Mendez MD LAB - BLOOD ORDER CLA[facility] [address] Lab (1st floor, no room number) [place] [address], [place] [phone] * Extra Blue Top Tube (06/22/2023 4:46 PM SHEET METAL MECHANIC) Hold Specimen [facility] 06/22/2023 6:03 PM SHEET METAL MECHANIC LABORATORY Blood STRUCTURE OF RIGHT UPPER LIMB / Unknown Venipuncture / Unknown 06/22/2023 4:46 PM SHEET METAL MECHANIC 06/22/2023 4:59 PM SHEET METAL MECHANIC Sae Mendez MD LAB - BLOOD ORDER CLAUDIA LABORATORY [facility] [address] Lab (1st floor, no room number) [place] [address], [facility] [phone] * Troponin T, High Sensitivity (now) (06/22/2023 4:46 PM SHEET METAL MECHANIC) Troponin T, High Sensitivity <6 <=14 ng/L 06/22/2023 7:09 PM SHEET METAL MECHANIC LABORATORY Comment: Either a High Sensitivity Troponin [...] Unknown Venipuncture / Unknown 06/22/2023 4:46 PM SHEET METAL MECHANIC 06/22/2023 5:00 PM SHEET METAL MECHANIC Sae Mendez MD LAB - BLOOD ORDER CLAUDIA LABORAT[facility] [address] Lab (1st floor, no room number) [place] [address], [facility] [phone] * Hepatic function panel (06/22/2023 4:46 PM SHEET METAL MECHANIC) Protein Total 7.8 6.4 - 8.3 g/dL 06/22/2023 7:11 PM SHEET METAL MECHANIC [facility] Albumin 4.6 3.5 - 5.2 g/dL 06/22/2023 7:11 PM SHEET METAL MECHANIC [facility] Bilirubin Total 0.2 <=1.2 mg/dL 06/22/2023 7:11 PM SHEET METAL MECHANIC [facility] Alkaline Phosphatase 51 40 - 150 U/L 06/22/2023 7:11 PM SHEET METAL MECHANIC [facility] Comment:Reference intervals for this test were updated on 04/05/2023 to more accurately reflect our healthy population. There may be differences in the flagging of prior results with similar values performed with this method. Interpretation of those prior results can be made in the context of the updated reference intervals. AST 14 0 - 45 U/L 06/22/2023 7:11 PM SHEET METAL MECHANIC [facility] Comment:Reference intervals for this test were updated on 11/01/2022 to more accurately reflect our healthy population. There may be differences in the flagging of prior results with similar values performed with this method. Interpretation of those prior results can be made in the context of the updated reference intervals. ALT 15 0 - 50 U/L 06/22/2023 7:11 PM SHEET METAL MECHANIC [facility] Comment:Reference intervals for this test were updated on 11/01/2022 to more accurately reflect our healthy population. There may be differences in the flagging of prior results with similar values performed with this method. Interpretation of those prior results can be made in the context of the updated reference intervals. Bilirubin Direct <0.20 0.00 - 0.30 mg/dL 06/22/2023 7:11 PM SHEET METAL MECHANIC [facility] Blood STRUCTURE OF RIGHT UPPER LIMB / Unknown Venipuncture / Unknown 06/22/2023 4:46 PM SHEET METAL MECHANIC 06/22/2023 5:00 PM SHEET METAL MECHANIC Sae Mendez MD LAB - BLOOD ORDER CLAUDIA LABORAT[facility] [address] [facility] Lab (1st floor, no room number) [place] [address], [facility] [phone] * D dimer quantitative (06/22/2023 4:46 PM SHEET METAL MECHANIC) Pathologist [facility] D-Dimer Quantitative 0.29 0.00 - 0.50 ug/mL FEU 06/22/2023 6:36 PM SHEET METAL MECHANIC LABORATORY Blood STRUCTURE OF RIGHT UPPER LIMB / Unknown Venipuncture / Unknown 06/22/2023 4:46 PM SHEET METAL MECHANIC 06/22/2023 4:59 PM SHEET METAL MECHANIC [facility] - 06/22/2023 6:36 PM SHEET METAL MECHANIC This D-dimer assay is intended for use in conjunction with a clinical pretest probability assessment model to exclude pulmonary embolism (PE) and deep venous thrombosis (DVT) in outpatients suspected of PE or DVT. The cut-off value is 0.50 ug/mL FEU. Sae Mendez MD LAB - BLOOD ORDER CLAUDIA LABORAT[facility] [address] Lab (1st floor, no room number) [place] [address], [facility] [phone] * (ABNORMAL) Basic metabolic panel (BMP) (06/22/2023 4:46 PM SHEET METAL MECHANIC) Pathologist [facility] Sodium 135 135 - 145 mmol/L 06/22/2023 5:22 PM [facility] Comment:Reference intervals for this test were updated on 02/15/2023 to more accurately reflect our healthy population. There may be differences in the flagging of prior results with similar values performed with this method. Interpretation of those prior results can be made in the context of the updated reference intervals. Potassium 3.8 3.4 - 5.3 mmol/L 06/22/2023 5:22 PM SHEET METAL MECHANIC LABORATORY Chloride 99 98 - 107 mmol/L 06/22/2023 5:22 PM SHEET METAL MECHANIC LABORATORY Carbon Dioxide (CO2) 25 22 - 29 mmol/L 06/22/2023 5:22 PM SHEET METAL MECHANIC LABORATORY Anion Gap 11 7 - 15 mmol/L 06/22/2023 5:22 PM SHEET METAL MECHANIC LABORATORY Urea Nitrogen 6.3 6.0 - 20.0 mg/dL 06/22/2023 5:22 PM SHEET METAL MECHANIC LABORATORY Creatinine 0.66 0.51 - 0.95 mg/dL 06/22/2023 5:22 PM SHEET METAL MECHANIC LABORATORY GFR Estimate >90 >60 mL/min/1. 73m2 06/22/2023 5:22 PM SHEET METAL MECHANIC LABORATORY Calcium 9.2 8.6 - 10.0 mg/dL 06/22/2023 5:22 PM SHEET METAL MECHANIC LABORATORY Glucose 101(H) 70 - 99 mg/dL 06/22/2023 5:22 PM SHEET METAL MECHANIC LABORATORY Blood STRUCTURE OF RIGHT UPPER LIMB / Unknown Venipuncture / Unknown 06/22/2023 4:46 PM SHEET METAL MECHANIC 06/22/2023 5:00 PM SHEET METAL MECHANIC Sae Mendez MD LAB - BLOOD ORDER CLAUD[facility] [address] Lab (1st floor, no room number) [place] [address], [facility] [phone] * HCG qualitative urine (UPT) (06/22/2023 4:35 PM SHEET METAL MECHANIC) hCG Urine Qualitative Negative Negative [place] 06/22/2023 8:01 PM SHEET METAL MECHANIC LABORATORY Comment:This test is for scr eening purposes. Results should be interpreted along with the clinical picture. Confirmation testing is available if warranted by ordering [id number], HCG Quantitative . Urine MID-STREAM URINE SPECIMEN / Unknown Non-blood Collection / Unknown 06/22/2023 4:35 PM SHEET METAL MECHANIC 06/22/2023 7:15 PM SHEET METAL MECHANIC Sae Mendez MD LAB - URINE ORDER CLAUDIA [facility] [address] Lab (1st floor, no room number) [place] [address], [facility] [phone] * (ABNORMAL) UA with Microscopic reflex to Culture (06/22/2023 4:35 PM SHEET METAL MECHANIC) Color Urine Light Yellow Colorless, Straw, Light Yellow, Yellow 06/22/2023 7:41 PM SHEET METAL MECHANIC LABORATORY Appearance Urine Clear Clear 06/22/19 7:41 PM SHEET METAL MECHANIC LABORATORY Glucose Urine Negative Negative mg/dL 06/22/2023 7:41 PM SHEET METAL MECHANIC LABORATORY Bilirubin Urine Negative Negative 7:41 PM SHEET METAL MECHANIC LABORATORY Ketones Urine Negative Negative mg/dL 06/22/2023 7:41 PM SHEET METAL MECHANIC LABORATORY Specific [place] Urine 1.016 1.003 - 1.035 06/22/2023 7:41 PM SHEET METAL MECHANIC [facility] Blood Urine Negative Negative 06/22/2023 7:41 PM [facility] pH Urine 7.5(H) 5.0 - 7.0 06/22/2023 7:41 PM [facility] Protein Albumin Urine Negative Negative mg/dL 06/22/2023 7:41 PM [facility] Urobilinogen Urine Normal Normal, 2.0 mg/dL 06/22/2023 7:41 PM [facility] Nitrite Urine Negative Negative 06/22/2023 7:41 PM [facility] LABORATORY Leukocyte Esterase Urine Negative Negative 06/22/2023 7:41 PM [facility] [facility] Bacteria Urine Few(A) None Seen /HPF 06/22/2023 7:41 PM [facility] [facility] Mucus Urine Present(A) None Seen /LPF 06/22/2023 7:41 PM [facility] RBC Urine <1 <=2 /HPF 06/22/2023 7:41 PM [facility] WBC Urine <1 <=5 /HPF 06/22/2023 7:41 PM [facility] Squamous Epithelials Urine 5(H) <=1 /HPF 06/22/2023 7:41 PM [facility] Urine MID-STREAM URINE SPECIMEN / Unknown Non-blood Collection / Unknown 06/22/2023 4:35 PM SHEET METAL MECHANIC 06/22/2023 7:15 PM SHEET METAL MECH[employer]IC Narrative [facility] - 06/22/2023 7:41 PM [employer] Urine Culture not indicated Sae Mendez MD LAB - URINE ORDER [facility] Lab [address] Lab (1st floor, no room number) [place] [address] [phone] from Last 3 Months Care Teams Detective [employer]inct Relationship Specialty [place] [id number] [place] [address] PCP - General Family Practice 11/27/18 [place] [address] [place] [address] Assigned PCP 05/11/20
--- OUTSIDE RECORDS SUMMARY | 2023-08-29 14:51 | XMS_ITS | Encounter Summary ---
Author Name Unknown Organization [facility] Address [address] [place] [id number] Care Team Providers Care Rag Inspector Name Role Phone Leslie Silvestre MD Primary Care Provider [phone] Leslie Silvestre MD Unavailable Reason for Visit * Reason Comments Abdominal Pain Encounter Details Date Type Department Care Team (Late st Contact Info) Description 06/26/2023 11:45 AM APPLICATION COORDINATOR - 06/26/2023 2:28 PM [facility] Emergency [facility] Emergency Dept [address] [place] [address] Barry Duran MD [facility] [address] [place] [address] Right sided abdominal pain; Diarrhea, unspecified type [...] often do you attend chur ch or protestant services? Never 07/05/2022 Do you belong to [...] Answer Date Recorded PHQ-2 Score 5 [facility] - Occupational Stress Questionnaire [...] place to sleep or slept in a mcc (including now)? Patient refused 07/05/2022 Corinth Depression Scale Answer Date Recorded Corinth Depression Score 0 12/07/2018 Last EPDS Self Harm Result Not on file 12/07 Education Answer Date Recorded What is the highest level of school you have completed or the highest degree you have received? 12th grade 06/28/2019 Sex and Gender Information Value Date Recorded Sex Assigned at Female 06/28/2018 11:22 AM APPLICATION COORDINATOR Gender Identity Female 06/28/2018 11:22 AM APPLICATION COORDINATOR Sexual Orientation Not on file documented as of this encounter Last Filed Vital Signs Vital Sign Reading Time Taken Comments Blood Pressure 125/80 06/26/2023 11:13 AM APPLICATION COORDINATOR Pulse 82 06/26/2023 11:13 AM APPLICATION COORDINATOR Temperature 36.7 ??C (98 ??F) 06/26/2023 11:13 AM APPLICATION COORDINATOR Respiratory Rate 20 06/26/2023 11:13 AM APPLICATION COORDINATOR Oxygen Saturation 100% 06/26/2023 11:13 AM APPLICATION COORDINATOR Inhaled Oxygen Concentration - - Weight - - Height - - Body Mass Index - - documented in this encounter Discharge Instructions * Discharge Instructions* Barry Duran MD - 06/26/2023 2:24 PM APPLICATION COORDINATOR Discharge Instructions Abdominal Pain Abdominal pain can be caused by many things. Your evaluation today does not show the exact cause for your pain. Your doctor today has decided that it is unlikely your pain is due to a life threatening problem, or a problem requiring surgery or hospital admission. Sometimes those problems cannot be found right away, so it is very important that you follow up as directed. Sometimes only the changeswhich occur over time allow the cause of your pain to be found. Return to the Emergency Department for a recheck in 8-12 hours if your pain continues. If your paingets worse, changes in location, or feels different, return to the Emergency Department right away. ADULTS: Return to the Emergency Department right away if: You get an oral temperature above 102oF or as directed by your doctor. You have blood in your stools (bright red or black, tarry stools). You keep throwing up or can???t drink liquids. You see blood when you throw up. You can???t have a bowel movement or you can???t pass gas. Your stomach gets bloated or bigger. Your skin or the whites of your eyes look yellow. You faint. You have bloody, frequent or painful urination. You have new symptoms or anything that [...] is dehydrated. Signs of dehydration can be: Your infant has had no wet diapers in 4-5 hours. Your older child has not passed urine in 6-8 hours. Your or child starts to have dry mouth and lips, or no saliva or tears. WOMEN: Return to the Emergency Department right away if you have any of the above-listed symptoms or the following: You have bleeding, leaking fluid or passing tissue from the vagina. You have worse pain or cramping, or pain in your shoulder or back. You have vomiting that will not stop. You have painful or bloody urination. You have a temperature of 100oF or more. Your baby is not moving as much as usual. You faint. You get a bad headache with or without eye problems and abdominal pain. You have a convulsion or seizure. You have unusual discharge from your vagina and abdominal pain. Abdominal pain is pretty common during . Your pain may or may not be related to your . You should follow-up closely with your OB doctor so they can evaluate you and your baby. Untilyou follow-up with your regular doctor, do the following: Avoid sex and do not put anything in your vagina. Drink clear fluids. Only take medications approved by your doctor. MORE INFORMATION: Appendicitis: A possible cause of abdominal pain in any person who still has their appendix is acute appendicitis. Appendicitis is often hard to diagnose. Testing does not always rule out early appendicitis or other causes of abdominal pain. Close follow-up with your doctor and re-evaluations may be needed to figure out the reason for your abdominal pain. Follow-up: It is very important that you make an appointment with your clinic and go to the appointment. If you do not follow-up with your primary doctor, it may result in missing an important development which could result in permanent injury or disability and/or lasting pain. If there is any problem keeping your appointment, call your doctor or return to the Emergency Department. Medications: Take your medications as directed by your doctor today. Before using [id number] medications, ask your doctor and make sure to take the medications as directed. If you have any questions about medications, ask your doctor. Diet: Resume your normal diet as much [...] have shown that probiotics help prevent diarrhea and other intestine problems (including C. diff [...] call or return to the Emergency Department. Opioid Medication Information Pain medications are among the most commonly prescribed medicines, so we are including this information for all our patients. If you did not receive pain medication or get a prescription for pain medicine, you can ignore it. You may have been given a prescription for an opioid (narcotic) pain medicine and/or have received a pain medicine while here in the Emergency Department. These medicines can make you drowsy or impaired. You must not drive, operate dangerous equipment, or engage in any other dangerous activities while taking these medications. If you drive while taking these medications, you could be arrested forDUI, or driving under the influence. Do not drink any alcohol while you are taking these medications. Opioid pain medications can cause addiction. If you have a history of chemical dependency of any type, you are at a higher risk of becoming addicted to pain medications. Only take these prescribed medications to treat your pain when all other options have been tried. Take it for as short a time andas few doses as possible. Store your pain pills in a secure place, as they are frequently stolen and provide a dangerous opportunity for children or visitors in your house to start abusing these powerful medications. We will not replace any lost or stolen medicine. As soon as your pain is better, you should flush all your remaining medication. Many prescription pain medications contain Tylenol?? (acetaminophen), including Vicodin??, Tylenol #3??, [place]??, Lortab??, and Percocet??. You should not take any extra pills of Tylenol?? if you areusing these prescription medications or you can get very sick. Do not ever take more than 3000 mg of acetaminophen in any 24 hour period. All opioids tend to cause constipation. Drink plenty of water and eat foods that have a lot of fiber, such as fruits, vegetables, prune juice, apple juice and high fiber cereal. Take a laxative if you don???t move your bowels at least every other day. Miralax??, Milk of Magnesia, Colace??, or Senna?? can be used to keep you regular. Remember that you can always come back to the Emergency Department if you are not able to see your regular doctor in the amount of time listed above, if you get any new symptoms, or if there is anything that worries you. ICATION COORDINATOR documented in this encounter Medications at Time [...] 03/18/2022 norethindrone-ethinyl estradiol (MICROGESTIN 1.530) 1.5-30 MG-MCG tabletIndications:Encoun ter for other contraceptive management Take 1 tablet by mouth daily 84 tablet 3 07/05/2022 naproxen (NAPROSYN) 500 MG tablet Take 1 tablet (500 mg) by mouth 2 times daily as needed for moderate pain 14 tablet 0 06/22/2023 06/30/2023 documented as of this encounter ED Notes * Estrada Velasco RN - 06/26/2023 11:12 AM CST Abdominal bloating and pain to RLQ since yesterday. Intermittent nausea. ICATION COORDINATOR * Barry Duran MD - 06/26/2023 11:10 AM CST History Chief Complaint: Abdominal Pain HPI Yadi Roblero is a 23 year old female presents the emergency room with abdominal pain. That patientstates that she started to have RLQ abdominal pain yesterday morning. She rates her pain 3/10 rightnow. She adds that she went to urgent care and was advised that if her pin get worse or is till there to come to the emergency room to check her appendix. She reports that the lower the pain goes theless sharp it is. She adds that she is nauseas, has diarrhea, no appetites, hot flashes and chills.She denies fever, issue urinating or recent ravels. Independent Historian: None. Review of External Notes: I reviewed triage note from 06/22/23 for flank pain that stated her x-ray was normal. Medications: Lexapro Naprosyn Junel microgestin Past Medical History: Abnormal papa smear of cervix Anxiety Past Surgical History: No history of surgery Physical Exam Patient Vitals for the past 24 hrs: BP Temp Temp src Pulse Resp SpO2 06/26/23 1113 125/80 98 ??F (36.7 ??C) Temporal 82 20 100 % Physical Exam General: The patient is alert, in no respiratory distress. HENT: Mucous membranes moist. Cardiovascular: Regular rate and rhythm. Good pulses in all four extremities. Normal capillary refill and skin turgor. Respiratory: Lungs are clear. No nasal flaring. No retractions. No wheezing, no crackles. Gastrointestinal: Abdomen soft. There is tenderness to palpation on the right side of the abdomen no guarding Musculoskeletal: No gross deformity. Skin: No rashes or petechiae. Neurologic: The patient is alert Lymphatic: No cervical adenopathy. No lower extremity swelling. Psychiatric: The patient is non-tearful. Emergency Department Course Imaging: CT Abdomen Pelvis w Contrast Final Result IMPRESSION: 1. Negative CT abdomen and pelvis. No abnormality to account for right lower quadrant pain. Report per radiology Laboratory: Labs Ordered and Resulted from Time of ED Arrival to Time of ED Departure ROUTINE UA WITH MICROSCOPIC - Abnormal Result Value Color Urine Straw Appearance Urine Clear Glucose Urine Negative Bilirubin Urine Negative Ketones Urine Negative Specific [place] Urine 1.005 Blood Urine Negative pH Urine 6.5 Protein Albumin Urine Negative Urobilinogen Urine Normal Nitrite Urine Negative Leukocyte Esterase Urine Negative Bacteria Urine Few (*) RBC Urine <1 WBC Urine 1 Squamous Epithelials Urine 3 (*) LIPASE - Normal Lipase 31 ISTAT HCG QUALITATIVE POCT - Normal HCG Qualitative POCT Negative CBC WITH PLATELETS AND DIFFERENTIAL WBC Count 6.7 RBC Count 4.86 Hemoglobin 13.4 Hematocrit 41.8 MCV 86 MCH 27.6 MCHC 32.1 RDW 12.3 Platelet Count 226 % Neutrophils 68 % Lymphocytes 27 % Monocytes 5 % Eosinophils 0 % Basophils 0 % Immature Granulocytes 0 NRBCs per 100 WBC 0 Absolute Neutrophils 4.5 Absolute Lymphocytes 1.8 Absolute Monocytes 0.4 Absolute Eosinophils 0.0 Absolute Basophils 0.0 Absolute Immature Granulocytes 0.0 Absolute NRBCs 0.0 Procedures Emergency Department Course & Assessments: Interventions: Medications iohexol (OMNIPAQUE) 140 MG/ML solution for oral use 25 mL (has no administration in time range) iopamidol (ISOVUE-370) solution 500 mL (60 mLs Intravenous $Given 06/26/23 1330) sodium chloride (PF) 0.9% PF flush 100 mL (55 mLs Intravenous $Given 06/26/23 1330) Assessments: 1220 I obtained history and examined the patient as noted above. I reassessed the patient after the CT scan and discussed results. Social Determinants of Health affecting care: Stress/Adjustment Disorders Disposition: The patient was discharged to home. Impression & Plan Medical Decision Making: While the patient does have mild pain currently she is at 2 days of symptoms. It is concerning thatthe pain was first in the right upper quadrant and has since traveled down to the right lower quadrant. I discussed that with the increased episodes of intensity of pain this could be appendicitis I discussed that is not not a definite we discussed risks and benefits and a CT scan was ordered after the patient did consent. She is not there is no signs of a UTI. Consideration was given toovarian causes however that would not explain the patient's pain starting up higher. The patient CTscan is negative we discussed other potential causes such as colitis colic spasm or functional painshe agrees to return if increasing pain and otherwise will follow-up closely as an outpatient. The patient has had diarrhea indicating colitis is a potential cause as well. Diagnosis: ICD-10-CM 1. Right sided abdominal pain R10.9 2. Diarrhea, unspecified type R19.7 Discharge Medications: Discharge Medication List as of 06/26/2023 2:24 PM Scribe Disclosure: Viri Nguyen, am serving as a scribe at 1:23 PM on 06/26/2023 to document services personally performed by Barry Duran MD based on my observations and the provider's statements to me. 06/26/2023 Barry Duran MD Farnan, Christopher M, MD 06/26/23 1835 ICATION COORDINATOR documented in this encounter Plan of Treatment Not on file documented as of this encounter Procedures Procedure Name Priority Date/Time Associated Diagnosis Comments CT ABDOMEN PELVIS W CONTRAST STAT 06/26/2023 1:38 PM APPLICATION COORDINATOR CBC WITH PLATELETS AND DIFFERENTIAL STAT 06/26/2023 12:48 PM APPLICATION COORDINATOR CBC WITH PLATELETS & DIFFERENTIAL STAT 06/26/2023 12:48 PM APPLICATION COORDINATOR LIPASE STAT 06/26/2023 12:48 PM APPLICATION COORDINATOR ISTAT HCG QUALITATIVE POCT STAT 06/26/2023 12:46 PM APPLICATION COORDINATOR ROUTINE UA WITH MICROSCOPIC STAT 06/26/2023 12:40 PM APPLICATION COORDINATOR documented in this encounter Results * CT Abdomen Pelvis w Contrast (06/26/2023 1:38 PM APPLICATION COORDINATOR) Anatomical Region Laterality Modality Abdomen/Pelvis, SUBRAD CT ROMAINE DY, UMP CT ABDOMEN PELVIS, RAD CT Computed Tomography 06/26/2023 1:38 PM APPLICATION COORDINATOR Impressions 06/26/2023 1:53 PM APPLICATION COORDINATOR IMPRESSION: 1. ??Negative CT abdomen and pelvis. No abnormality to account for right lower quadrant pain. Narrative 06/26/2023 1:53 PM APPLICATION COORDINATOR EXAM: CT ABDOMEN PELVIS W CONTRAST LOCATION: [facility] DATE: 06/26/2023 INDICATION: Right lower quadrant abdominal [...] EXAM: CT ABDOMEN PELVIS W CONTRAST LOCATION: [facility] DATE: 06/26/2023 INDICATION: Right lower quadrant abdominal [...] for rightlower quadrant pain. Barry Duran MD [facility] CT ORDERABLE S * CBC with platelets and differential (06/26/2023 12:48 PM APPLICATION COORDINATOR) WBC Count 6.7 4.0 - 11.0 10e3/uL 06/26/2023 1:18 PM APPLICATION COORDINATOR [facility] RBC Count 4.86 3.80 - 5.20 10e6/uL 06/26/2023 1:18 PM APPLICATION COORDINATOR [facility] Hemoglobin 13.4 11.7 - 15.7 g/dL 06/26/2023 1:18 PM APPLICATION COORDINATOR [facility] Hematocrit 41.8 35.0 - 47.0 % 06/26/2023 1:18 PM APPLICATION COORDINATOR [facility] MCV 86 78 - 100 fL 06/26/2023 1:18 PM APPLICATION COORDINATOR [facility] MCH 27.6 26.5 - 33.0 pg 06/26/2023 1:18 PM APPLICATION COORDINATOR [facility] MCHC 32.1 31.5 - 36.5 g/dL 06/26/2023 1:18 PM APPLICATION COORDINATOR [facility] RDW 12.3 10.0 - 15.0 % 06/26/2023 1:18 PM APPLICATION COORDINATOR [facility] Platelet Count 226 150 - 450 10e3/uL 06/26/2023 1:18 PM APPLICATION COORDINATOR [facility] % Neutrophils 68 % 06/26/2023 1:18 PM APPLICATION COORDINATOR [facility] % Lymphocytes 27 % 06/26/2023 1:18 PM APPLICATION COORDINATOR [facility] % Monocytes 5 % 06/26/2023 1:18 PM APPLICATION COORDINATOR [facility] % Eosinophils 0 % 06/26/2023 1:18 PM APPLICATION COORDINATOR [facility] % Basophils 0 % 06/26/2023 1:18 PM APPLICATION COORDINATOR [facility] % Immature Granulocytes 0 % 06/26/2023 1:18 PM APPLICATION COORDINATOR [facility] NRBCs per 100 WBC 0 <1 /100 024 1:18 PM APPLICATION COORDINATOR [facility] Absolute Neutrophils 4.5 1.6 - 8.3 10e3/uL 06/26/2023 1:18 PM APPLICATION COORDINATOR [facility] Absolute Lymphocytes 1.8 0.8 - 5.3 10e3/uL 06/26/2023 1:18 PM APPLICATION COORDINATOR [facility] Absolute Monocytes 0.4 0.0 - 1.3 10e3/uL 06/26/2023 1:18 PM APPLICATION COORDINATOR [facility] Absolute Eosinophils 0.0 0.0 - 0.7 10e3/uL 06/26/2023 1:18 PM APPLICATION COORDINATOR [facility] Absolute Basophils 0.0 0.0 - 0.2 10e3/uL 06/26/2023 1:18 PM APPLICATION COORDINATOR [facility] Absolute Immature Granulocytes 0.0 <=0.4 10e3/uL 06/26/2023 1:18 PM APPLICATION COORDINATOR [facility] Absolute NRBCs 0.0 10e3/uL 06/26/2023 1:18 PM APPLICATION COORDINATOR [facility] Blood BLOOD SPECIMEN / Unknown Venipuncture / Unknown 06/26/2023 12:48 PM APPLICATION COORDINATOR 06/26/2023 1:17 PM APPLICATION COORDINATOR Barry Duran MD LAB - BLOOD ORDEugene ARIAS [facility] [address] Lab (1st floor, no room number) [place] [address], [facility] [phone] * Lipase (06/26/2023 12:48 PM APPLICATION COORDINATOR) Lipase 31 13 - 60 U/L 06/26/2023 1:53 PM APPLICATION COORDINATOR [facility] Blood BLOOD SPECIMEN / Unknown Venipuncture / Unknown 06/26/2023 12:48 PM APPLICATION COORDINATOR 06/26/2023 1:33 PM APPLICATION COORDINATOR Barry Duran MD LAB - BLOOD ARTUR ARIAS [facility] Lab [address] Lab (1st floor, no room number) [place] [address], [facility] [phone] * iStat HCG Qualitative , POCT (06/26/2023 12:46 PM APPLICATION COORDINATOR) Pathologist [facility] HCG Qualitative POCT Negative Negative, Indeterminate 06/26/2023 1:00 PM APPLICATION COORDINATOR [facility] POC Blood, venous BLOOD SPECIMEN / Unknown 06/26/2023 12:46 PM APPLICATION COORDINATOR 06/26/2023 1:00 PM APPLICATION COORDINATOR Barry Duran MD LAB - BEAKER POC T [facility] POC [facility] Acute [facility] Lab [address] Lab (1st floor, no room number) [place] [address] [phone] * (ABNORMAL) UA with Microscopic (06/26/2023 12:40 PM APPLICATION COORDINATOR) Pathologist [facility] Color Urine Straw Colorless, Straw, Light Yellow, Yellow 06/26/2023 1:26 PM APPLICATION COORDINATOR LABORATORY Appearance Urine Clear Clear 06/26/19 1:26 PM APPLICATION COORDINATOR LABORATORY Glucose Urine Negative Negative mg/dL 06/26/2023 1:26 PM APPLICATION COORDINATOR LABORATORY Bilirubin Urine Negative Negative 1:26 PM APPLICATION COORDINATOR LABORATORY Ketones Urine Negative Negative mg/dL 06/26/2023 1:26 PM APPLICATION COORDINATOR LABORATORY Specific [place] Urine 1.005 1.003 - 1.035 06/26/2023 1:26 PM APPLICATION COORDINATOR LABORATORY Blood Urine Negative Negative 06/26/2023 1:26 PM APPLICATION COORDINATOR LABORATORY pH Urine 6.5 5.0 - 7.0 06/26/2023 1:26 PM APPLICATION COORDINATOR LABORATORY Protein Albumin Urine Negative Negative mg/dL 06/26/2023 1:26 PM APPLICATION COORDINATOR LABORATORY Urobilinogen Urine Normal Normal, 2.0 mg/dL 06/26/2023 1:26 PM APPLICATION COORDINATOR LABORATORY Nitrite Urine Negative Negative 06/26/2023 1:26 PM APPLICATION COORDINATOR LABORATORY Leukocyte Esterase Urine Negative Negative 06/26/2023 1:26 PM APPLICATION COORDINATOR LABORATORY Bacteria Urine Few(A) None Seen /HPF 06/26/2023 1:26 PM APPLICATION COORDINATOR [facility] RBC Urine <1 <=2 /HPF 06/26/2023 1:26 PM APPLICATION COORDINATOR [facility] WBC Urine 1 <=5 /HPF 06/26/2023 1:26 PM APPLICATION COORDINATOR [facility] Squamous Epithelials Urine 3(H) <=1 /HPF 06/26/2023 1:26 PM APPLICATION COORDINATOR LABORATORY Urine URINE SPECIMEN OBTAINED BY CLEAN CATCH PROCEDURE / Unknown Non-blood Collection / Unknown 06/26/2023 12:40 PM APPLICATION COORDINATOR 06/26/2023 1:01 PM APPLICATION COORDINATOR Barry Duran MD LAB - URINE ARTUR ARIAS LABORATORY [facility] Lab [address] Lab (1st floor, no room number) [place] [address], [facility] [phone] documented in this encounter Visit Diagnoses Diagnosis Right sided abdominal pain Abdominal pain, unspecified site Diarrhea, unspecified type documented in this encounter Administered Medications Inactive Administered Medications - up to 3 most recent administrations Medication Order MAR Action Action Date Dose Rate Site iopamidol (ISOVUE-370) solution 500 mL 500 mL, Intravenous, ONCE, On 06/26/23 at 1330, For 1 dose $Given 06/26/2023 1:30 PM APPLICATION COORDINATOR 60 mLs sodium chloride (PF) 0.9% PF flush 100 mL 100 mL, Intravenous, ONCE, On 06/26/23 at 1330, For 1 dose $Given 06/26/2023 1:30 PM APPLICATION COORDINATOR 55 mLs documented in this encounter Active and Recently Administered Medications Times are shown in APPLICATION COORDINATOR. Scheduled Medication Order 06/24/2023 06/25/2023 06/26/2023 iohexol (OMNIPAQUE) 140 MG/ML solution for oral use 25 mL 25 mL, Oral, EVERY 30 MIN, First dose on 06/26/23 at 1245, For 2 doses 1245 (Due)1315 (Due) iopamidol (ISOVUE-370) solution 500 mL (COMPLETED) 500 mL, Intravenous, ONCE, On 06/26/23 at 1330, For 1 dose 1330 ($Given - Provi sera: Presley Villalobos) sodium chloride (PF) 0.9% PF flush 100 mL (COMPLETED) 100 mL, Intravenous, ONCE, On 06/26/23 at 1330, For 1 dose 1330 ($Given - Provi sera: Presley Villalobos) sodium chloride 0.9% BOLUS 1,000 mL Intravenous, 1,000 mL, ONCE, at 1,000 mL/hr, Administer over 1 Hours, On 06/26/23 at 1235, For 1 dose 1235 (Canceled Entry - Provider: Orders Generic Provider - Comment: Automatically canceled at discontinue of medication order) documented in this encounter Additional Health Concerns Assessment Noted Time PHQ-9 Depression Total Score: 9 08/29/19 24 7:11 AM CDT documented as of this encounter Care Teams Rag Inspector Relationship Specialty Start [place] [address] [place] [address] PCP - General Family Practice 11/27/18 [place] [address] [place] [address] Assigned PCP 05/11/20 documented as of this encounter
--- OUTSIDE RECORDS SUMMARY | 2023-08-29 14:51 | XMS_ITS | Encounter Summary ---
Author Name Unknown Organization [facility] Address [address] [place] [address]. [place] [address] Care Team Providers [facility] Assistant Name Role Phone Leslie Silvestre MD Primary Care Provider [phone] Leslie Silvestre MD Unavailable [phone] Encounter Details Date Type Department Care Team (Late st Contact Info) Description 02/04/2022 [facility] Medical Advice [address] [id number] Leslie Silvestre MD [address] [place] [id number] Social History Tobacco Use Types Packs/Day [...] and Family Once a week 06/28/2019 Attends [employer] Never 06/28 Active Member of [employer] [...] Answer Date Recorded PHQ-2 Score 0 08/28/2020 [facility] - Occupational [...] things needed for daily living? No 06/28/2019 [place] Depression Scale Answer Date Recorded [place] Depression Score 0 12/07/2018 Last EPDS Self Harm Result Not on file 12/07 Education Answer Date Recorded What is the highest level of school you have completed or the highest degree you have received? 12th grade 06/28/2019 Sex and Gender Information Value Date Recorded Sex Assigned at Female 06/28/2018 11:22 AM TECHNICIAN Gender Identity Female 06/28/2018 11:22 AM TECHNICIAN Sexual Orientation Not on file documented as of this encounter Miscellaneous Notes * Telephone Encounter - Veronika Gaines - 02/08/2022 4:00 PM CDT Form is completed and placed in the [facility] station , will wait for patient to call back to see if she would like to pick it up or wants us to fax form . Called patient LVM. Veronika Gaines Political Science Chair * Telephone Encounter - Leslie Silvestre MD [...] Total Score: 5 04/30/20 20 3:13 PM TECHNICIAN documented as of this encounter Care Teams Health Center Assistant Relationship Specialty [place] [id number] [place] [address] PCP - General Family Practice 11/27/18 [place] [id number] [place] [address] Assigned PCP 05/11/20 documented as of this encounter
--- OUTSIDE RECORDS SUMMARY | 2023-08-29 14:51 | XMS_ITS | Referral Summary ---
Author Name Unknown Organization [facility] Address [address] [place] [address] Care Team Providers Care Skein Yarn Drier Name Role Phone Leslie Silvestre MD Primary Care Provider [phone] Leslie Silvestre MD Unavailable [phone] Encounters Date Type Department Care Team Description 08/03/2023 Travel 06/26/2023 Travel 06/26/2023 11:45 AM FIXING CARPENTER - 06/26/2023 2:28 PM [facility]ING CARPENTER Emergency [facility] Emergency Dept [address] [place] [address] Barry Duran MD Right sided abdominal pain; Diarrhea, unspecified type Discharge Disposition: Home or Self Care 06/22/2023 Travel 06/22/2023 5:52 PM FIXING CARPENTER - 06/22/2023 9:22 PM [facility]ING CARPENTER Emergency [facility] Emergency Dept [address] [place] [address] Sae Mendez MD Chest pain, unspecified type; Right upper quadrant abdominal pain Discharge Disposition: Home or Self Care from Last 3 Months Allergies Active Allergy Reactions Criticality Noted Date Comments No Known Drug Allergy 12/10/2002 Medications Medication Sig Dispensed Refills Start Date End Date Status norethindrone-ethiny l estradiol (06/11) 1-20 MG-MCG tabletIndications:En counter for other contraceptive management Take 1 tablet by mouth daily 84 tablet 3 03/18/2022 Active Additional Information Patient not taking.Reported on 01/31/2023 norethindrone-ethiny l estradiol (MICROGESTIN .10/19) 1.5-30 MG-MCG tabletIndications:En counter for other contraceptive [...] How often do you attend chur or hoahaoism services? Never 07/05/2022 Do you belong to any clubs o r organizations such as worship groups, unions, fraternal or athletic groups, or [...] Answer Date Recorded PHQ-2 Score 5 01/31/2023 [facility] - Occupational Stress Questionnaire Answer Date Recorded [...] a intermediate (including now)? Patient refused 07/05/2022 [place] Depression Scale Answer Date Recorded [place] Depression Score 0 12/07/2018 Last EPDS Self Harm Result Not on file 12/07 Education Answer Date Recorded What is the highest level of school you have completed or the highest degree you have received? 12th grade 06/28/2019 Sex and Gender Information Value Date Recorded Sex Assigned at Female 06/28/2018 11:22 AM FIXING CARPENTER Gender Identity Female 06/28/2018 11:22 AM FIXING CARPENTER Sexual Orientation Not on file Last Filed Vital Signs Vital Sign Reading Time Taken Comments Blood Pressure 125/80 06/26/2023 11:13 AM FIXING CARPENTER Pulse 82 06/26/2023 11:13 AM FIXING CARPENTER Temperature 36.7 ??C (98 ??F) 06/26/2023 11:13 AM FIXING CARPENTER Respiratory Rate 20 06/26/2023 11:13 AM FIXING CARPENTER Oxygen Saturation 100% 06/26/2023 11:13 AM FIXING CARPENTER Inhaled Oxygen Concentration - - Weight 54.4 kg (120 lb) 01/31/2023 9:58 AM CDT Height 160 cm (5' 3) 01/31/2023 9:58 AM CDT Body Mass Index 21.26 01/31/2023 9:58 AM CDT Plan of Treatment Not on file Procedures Procedure Name Priority Date/Time Associated Diagnosis Comments CT ABDOMEN PELVIS W CONTRAST STAT 06/26/2023 1:38 PM [facility]ING CARPENTER CBC WITH PLATELETS & DIFFERENTIAL STAT 06/26/2023 12:48 PM [facility]ING CARPENTER CBC WITH PLATELETS AND DIFFERENTIAL STAT 06/26/2023 12:48 PM [facility]ING CARPENTER LIPASE STAT 06/26/2023 12:48 PM [facility]ING CARPENTER ISTAT HCG QUALITATIVE POCT STAT 06/26/2023 12:46 PM [facility]ING CARPENTER ROUTINE UA WITH MICROSCOPIC STAT 06/26/2023 12:40 PM FIXING CARPENTER EKG 12-LEAD, TRACING ONLY STAT 06/22/2023 8:43 PM FIXING CARPENTER XR CHEST 2 VIEWS STAT 06/22/2023 7:22 PM [facility]ING CARPENTER US ABDOMEN LIMITED STAT 06/22/2023 6: 57 PM [facility]ING CARPENTER CBC WITH PLATELETS & DIFFERENTIAL STAT 06/22/2023 4:46 PM [facility]ING CARPENTER TROPONIN T, HIGH SENSITIVITY STAT 06/22/2023 4:46 PM FIXING CARPENTER D DIMER QUANTITATIVE STAT 06/22/2023 4:46 PM [facility]ING CARPENTER LIPASE STAT 06/22/2023 4:46 PM [facility]ING CARPENTER HEPATIC FUNCTION PANEL STAT 06/22/2023 4:46 PM FIXING CARPENTER CBC WITH PLATELETS AND DIFFERENTIAL STAT 06/22/2023 4:46 PM FIXING CARPENTER EXTRA PURPLE TOP TUBE STAT 06/22/2023 4:46 PM FIXING CARPENTER EXTRA GREEN TOP (LITHIUM HEPARIN) TUBE STAT 06/22/2023 4:46 PM FIXING CARPENTER EXTRA RED TOP TUBE STAT 06/22/2023 4: 46 PM FIXING CARPENTER EXTRA BLUE TOP TUBE STAT 06/22/2023 4 :46 PM FIXING CARPENTER BASIC METABOLIC PANEL STAT 06/22/2023 4:46 PM FIXING CARPENTER EXTRA TUBE STAT 06/22/2023 4:46 PM [facility]ING CARPENTER HCG QUALITATIVE URINE STAT 06/22/2023 4:35 PM FIXING CARPENTER ROUTINE UA WITH MICROSCOPIC REFLEX TO CULTURE STAT 06/22/2023 4:35 PM FIXING CARPENTER from Last 3 Months Results * CT Abdomen Pelvis w Contrast (06/26/2023 1:38 PM FIXING CARPENTER) Anatomical Region Laterality Modality Abdomen/Pelvis, SUBRAD CT ROMAINE DY, UMP CT ABDOMEN PELVIS, RAD CT Computed Tomography 06/26/2023 1:38 PM FIXING CARPENTER Impressions 06/26/2023 1:53 PM FIXING CARPENTER IMPRESSION: 1. ??Negative CT abdomen and pelvis. No abnormality to account for right lower quadrant pain. Narrative 06/26/2023 1:53 PM FIXING CARPENTER EXAM: CT ABDOMEN PELVIS W CONTRAST LOCATION: DATE: 06/26/2023 INDICATION: Right lower quadrant abdominal [...] EXAM: CT ABDOMEN PELVIS W CONTRAST LOCATION: DATE: 06/26/2023 INDICATION: Right lower quadrant abdominal [...] for rightlower quadrant pain. Barry Duran MD [facility] CT ORDERABLE S * CBC with platelets and differential (06/26/2023 12:48 PM [facility]ING CARPENTER) Only the most recent of2 resultswithin the time period is included. WBC Count 6.7 4.0 - 11.0 10e3/uL 06/26/2023 1:18 PM [facility] RBC Count 4.86 3.80 - 5.20 10e6/uL 06/26/2023 1:18 PM [facility] Hemoglobin 13.4 11.7 - 15.7 g/dL 06/26/2023 1:18 PM [facility] Hematocrit 41.8 35.0 - 47.0 % 06/26/2023 1:18 PM [facility] MCV 86 78 - 100 fL 06/26/2023 1:18 PM [facility] MCH 27.6 26.5 - 33.0 pg 06/26/2023 1:18 PM [facility] MCHC 32.1 31.5 - 36.5 g/dL 06/26/2023 1:18 PM [facility] RDW 12.3 10.0 - 15.0 % 06/26/2023 1:18 PM [facility] Platelet Count 226 150 - 450 10e3/uL 06/26/2023 1:18 PM [facility] % Neutrophils 68 % 06/26/2023 1:18 PM [facility] % Lymphocytes 27 % 06/26/2023 1:18 PM [facility] % Monocytes 5 % 06/26/2023 1:18 PM [facility] % Eosinophils 0 % 06/26/2023 1:18 PM [facility] % Basophils 0 % 06/26/2023 1:18 PM [facility] % Immature Granulocytes 0 % 06/26/2023 1:18 PM [facility] NRBCs per 100 WBC 0 <1 /100 024 1:18 PM [facility] Absolute Neutrophils 4.5 1.6 - 8.3 10e3/uL 06/26/2023 1:18 PM [facility] Absolute Lymphocytes 1.8 0.8 - 5.3 10e3/uL 06/26/2023 1:18 PM [facility] Absolute Monocytes 0.4 0.0 - 1.3 10e3/uL 06/26/2023 1:18 PM [facility] Absolute Eosinophils 0.0 0.0 - 0.7 10e3/uL 06/26/2023 1:18 PM [facility] Absolute Basophils 0.0 0.0 - 0.2 10e3/uL 06/26/2023 1:18 PM [facility] Absolute Immature Granulocytes 0.0 <=0.4 10e3/uL 06/26/2023 1:18 PM [facility] Absolute NRBCs 0.0 10e3/uL 06/26/2023 1:18 PM [facility] Blood BLOOD SPECIMEN / Unknown Venipuncture / Unknown 06/26/2023 12:48 PM FIXING CARPENTER 06/26/2023 1:17 PM FIXING CARPENTER Barry Duran MD LAB - BLOOD [facility] [address] Lab (1st floor, no room number) [place] [address], [place] [phone] * Lipase (06/26/2023 12:48 PM FIXING CARPENTER) Only the most recent of2 resultswithin the time period is included. Lipase 31 13 - 60 U/L 06/26/2023 1:53 PM [facility]ING [facility] Blood BLOOD SPECIMEN / Unknown Venipuncture / Unknown 06/26/2023 12:48 PM FIXING CARPENTER 06/26/2023 1:33 PM FIXING CARPENTER Barry Duran MD LAB - BLOOD [facility] Performing Organization Address City/[facility]/ZIP Co de Phone Number [facility] [address] Lab (1st floor, no room number) [place] [address], [place] [phone] * iStat HCG Qualitative , POCT (06/26/2023 12:46 PM FIXING CARPENTER) HCG Qualitative POCT Negative Negative, Indeterminate 06/26/2023 1:00 PM [facility]ING [facility] POC Blood, venous BLOOD SPECIMEN / Unknown 06/26/2023 12:46 PM FIXING CARPENTER 06/26/2023 1:00 PM FIXING CARPENTER Barry Duran MD LAB - BEAKER POC T LABORATORY POC [facility] Lab [address] Lab (1st floor, no room number) [place] [address], [place] [phone] * (ABNORMAL) UA with Microscopic (06/26/2023 12:40 PM FIXING CARPENTER) Color Urine Straw Colorless, Straw, Light Yellow, Yellow 06/26/2023 1:26 PM [facility] LABORATORY Appearance Urine Clear Clear 06/26/19 1:26 PM [facility] LAB[facility] Glucose Urine Negative Negative mg/dL 06/26/2023 1:26 PM [facility] Bilirubin Urine Negative Negative 1:26 PM [facility] Ketones Urine Negative Negative mg/dL 06/26/2023 1:26 PM [facility] LABORATORY Specific [place] Urine 1.005 1.003 - 1.035 06/26/2023 1:26 PM [facility] LAB[facility] Blood Urine Negative Negative 06/26/2023 1:26 PM [facility] LAB[facility] pH Urine 6.5 5.0 - 7.0 06/26/2023 1:26 PM [facility] Protein Albumin Urine Negative Negative mg/dL 06/26/2023 1:26 PM [facility] Urobilinogen Urine Normal Normal, 2.0 mg/dL 06/26/2023 1:26 PM [facility] Nitrite Urine Negative Negative 06/26/2023 1:26 PM [facility] Leukocyte Esterase Urine Negative Negative 06/26/2023 1:26 PM [facility] LAB[facility] Bacteria Urine Few(A) None Seen /HPF 06/26/2023 1:26 PM [facility] RBC Urine <1 <=2 /HPF 06/26/2023 1:26 PM [facility] LABOR[facility]ORY WBC Urine 1 <=5 /HPF 06/26/2023 1:26 PM [facility] LAB[facility] Squamous Epithelials Urine 3(H) <=1 /HPF 06/26/2023 1:26 PM [facility] Urine URINE SPECIMEN OBTAINED BY CLEAN CATCH PROCEDURE / Unknown Non-blood Collection / Unknown 06/26/2023 12:40 PM FIXING CARPENTER 06/26/2023 1:01 PM FIXING CARPENTER Barry Duran MD LAB - URINE [facility] Organization Address City/State/ZIP Co de Phone Number LABORATORY [facility] [address] [facility] Lab (1st floor, no room number) [place] [address], [place] [phone] * EKG 12-lead, tracing only (06/22/2023 8:43 PM FIXING CARPENTER) Systolic Blood Pressure mmHg RADIOLOGY RESULTS Diastolic Blood Pressure mmHg RADIOLOGY RESULTS Ventricular Rate 80 BPM RAD IOLOGY RESULTS Atrial Rate 80 BPM RADIOLOG Y RESULTS IL Interval 140 ms RADIOLOG Y RESULTS QRS Duration 90 ms RADIOLO GY RESULTS QT 370 ms RADIOLOGY RESULTS QTc 426 ms RADIOLOGY RESULTS P [place] 23 degrees RADIOLOGY RESULTS R AXIS 61 degrees RADIOLOGY RESULTS T [place] 17 degrees RADIOLOGY RESULTS Interpretation ECG Sinus rhythm Normal ECG When compared with ECG of 10-JAN-2023 16:49, No significant change was found Unconfirmed report - interpretation of this ECG is computer generated - see medical record for final interpretation Confirmed by - EMERGENCY ROOM, PHYSICIAN ([id number]), development editor PONCE NATHAN ([id number]) on 06/23/2023 6:56:32 AM RADIOLOGY RESULTS 06/22/2023 8:43 PM FIXING CARPENTER 06/23/2023 6:56 AM FIXING CARPENTER Sae Mendez MD ECG ORDERABLES RADIOLOGY RESULTS * Chest XR, PA & LAT (06/22/2023 7:22 PM FIXING CARPENTER) Anatomical Region Laterality Modality Chest Computed Radiogr aphy 06/22/2023 7:22 PM FIXING CARPENTER Impressions 06/22/2023 7:25 PM FIXING CARPENTER IMPRESSION: Negative chest. Narrative 06/22/2023 7:25 PM FIXING CARPENTER EXAM: XR CHEST 2 VIEWS LOCATION: DATE: 06/22/2023 INDICATION: chest pain COMPARISON: 01/10/2023 Procedure Note Levy Ndiaye MD - 06/22/2023 EXAM: XR CHEST 2 VIEWS LOCATION: DATE: 06/22/2023 INDICATION: chest pain COMPARISON: 01/10/2023 IMPRESSION: Negative chest. Sae Mendez MD IMG DIAGNOSTIC IM AGING ORDERABLES * US Abdomen Limited (06/22/2023 6:57 PM FIXING CARPENTER) Anatomical Region Laterality Modality Abdomen/Pelvis Ultrasound 06/22/2023 6:57 PM FIXING CARPENTER Impressions 06/22/2023 7:04 PM FIXING CARPENTER IMPRESSION: 1. ??Normal limited abdominal ultrasound. Narrative 06/22/2023 7:04 PM FIXING CARPENTER EXAM: US ABDOMEN LIMITED LOCATION: DATE: 06/22/2023 INDICATION: RUQ pain COMPARISON: None. [...] - 06/22/2023 EXAM: US ABDOMEN LIMITED LOCATION: DATE: 06/22/2023 INDICATION: RUQ pain COMPARISON: None. [...] Normal limited abdominal ultrasound. Sae Mendez MD [facility] US ORDERABLES * Extra Purple Top Tube (06/22/2023 4:46 PM FIXING CARPENTER) Hold Specimen [facility] 06/22/2023 6:03 PM [facility]ING [facility] LABORATORY Blood STRUCTURE OF RIGHT UPPER LIMB / Unknown Venipuncture / Unknown 06/22/2023 4:46 PM FIXING CARPENTER 06/22/2023 5:00 PM FIXING CARPENTER Sae Mendez MD LAB - BLOOD ORDER CLAUDIA [facility] [address] Lab (1st floor, no room number) [place] [address], [place] [phone] * Extra Green Top ([place] Heparin) Tube (06/22/2023 4:46 PM FIXING CARPENTER) Hold Specimen [facility] 06/22/2023 6:03 PM FIXING CARPENTER [facility] Blood STRUCTURE OF RIGHT UPPER LIMB / Unknown Venipuncture / Unknown 06/22/2023 4:46 PM FIXING CARPENTER 06/22/2023 4:59 PM FIXING CARPENTER Sae Mendez MD LAB - BLOOD ORDER CLAUDIA [facility] [address] Lab (1st floor, no room number) [place] [address], [place] [phone] * Extra Red Top Tube (06/22/2023 4:46 PM FIXING CARPENTER) Hold Specimen [facility] 06/22/2023 6:03 PM FIXING CARP[facility] Blood STRUCTURE OF RIGHT UPPER LIMB / Unknown Venipuncture / Unknown 06/22/2023 4:46 PM FIXING CARPENTER 06/22/2023 4:59 PM FIXING CARPENTER Sae Mendez MD LAB - BLOOD ORDER CLAUDIA [facility] [address] Lab (1st floor, no room number) [place] [address], [place] [phone] * Extra Blue Top Tube (06/22/2023 4:46 PM FIXING CARPENTER) Hold Specimen [facility] 06/22/2023 6:03 PM FIXING CARP[facility] Blood STRUCTURE OF RIGHT UPPER LIMB / Unknown Venipuncture / Unknown 06/22/2023 4:46 PM FIXING CARPENTER 06/22/2023 4:59 PM FIXING CARPENTER Sae Mendez MD LAB - BLOOD ORDER CLAUDIA Performing Organization Address [facility]/ZIP Co de Phone Number [facility] [address] Lab (1st floor, no room number) [place] [address], [place] [phone] * Troponin T, High Sensitivity (now) (06/22/2023 4:46 PM FIXING CARPENTER) Troponin T, High Sensitivity <6 <=14 ng/L 06/22/2023 7:09 PM [facility] LABORATORY Comment: Either a High Sensitivity Troponin [...] Unknown Venipuncture / Unknown 06/22/2023 4:46 PM FIXING CARPENTER 06/22/2023 5:00 PM FIXING CARPENTER Sae Mendez MD LAB - BLOOD ORDER CLAUDIA Performing Organization Address [facility]/ZIP Co de Phone Number [facility] [address] Lab (1st floor, no room number) [place] [address], [place] [phone] * Hepatic function panel (06/22/2023 4:46 PM FIXING CARPENTER) Protein Total 7.8 6.4 - 8.3 g/dL 06/22/2023 7:11 PM FIXING CARPENTER [facility] Albumin 4.6 3.5 - 5.2 g/dL 06/22/2023 7:11 PM [facility] LABORATORY Bilirubin Total 0.2 <=1.2 mg/dL 06/22/2023 7:11 PM FIXING [facility] Alkaline Phosphatase 51 40 - 150 U/L 06/22/2023 7:11 PM [facility] Comment:Reference intervals for this test were updated on 04/05/2023 to more accurately reflect our healthy population. There may be differences in the flagging of prior results with similar values performed with this method. Interpretation of those prior results can be made in the context of the updated reference intervals. AST 14 0 - 45 U/L 06/22/2023 7:11 PM [facility]ING [facility]PENTER [facility] Comment:Reference intervals for this test were updated on 11/01/2022 to more accurately reflect our healthy population. There may be differences in the flagging of prior results with similar values performed with this method. Interpretation of those prior results can be made in the context of the updated reference intervals. ALT 15 0 - 50 U/L 06/22/2023 7:11 PM FIXING CARPENTER [facility] Comment:Reference intervals for this test were updated on 11/01/2022 to more accurately reflect our healthy population. There may be differences in the flagging of prior results with similar values performed with this method. Interpretation of those prior results can be made in the context of the updated reference intervals. Bilirubin Direct <0.20 0.00 - 0.30 mg/dL 06/22/2023 7:11 PM FIXING CARPENTER [facility] Blood STRUCTURE OF RIGHT UPPER LIMB / Unknown Venipuncture / Unknown 06/22/2023 4:46 PM FIXING CARPENTER 06/22/2023 5:00 PM FIXING CARPENTER Sae Mendez MD LAB - BLOOD ORDER CLAUDIA [facility] [address] [facility] Lab (1st floor, no room number) [place] [address], [place] [phone] * D dimer quantitative (06/22/2023 4:46 PM FIXING CARPENTER) D-Dimer Quantitative 0.29 0.00 - 0.50 ug/mL FEU 06/22/2023 6:36 PM [facility] Blood STRUCTURE OF RIGHT UPPER LIMB / Unknown Venipuncture / Unknown 06/22/2023 4:46 PM FIXING CARPENTER 06/22/2023 4:59 PM FIXING CARPENTER Narrative [facility] - 06/22/2023 6:36 PM FIXING CARPENTER This D-dimer assay is intended for use in conjunction with a clinical pretest probability assessment model to exclude pulmonary embolism (PE) and deep venous thrombosis (DVT) in outpatients suspected of PE or DVT. The cut-off value is 0.50 ug/mL FEU. Sae Mendez MD LAB - BLOOD ORDER CLAUDIA [facility] [address] [facility] Lab (1st floor, no room number) [place] [address], [place] [phone] * (ABNORMAL) Basic metabolic panel (BMP) (06/22/2023 4:46 PM FIXING CARPENTER) Sodium 135 135 - 145 mmol/L 06/22/2023 5:22 PM [facility] Comment:Reference intervals for this test were updated on 02/15/2023 to more accurately reflect our healthy population. There may be differences in the flagging of prior results with similar values performed with this method. Interpretation of those prior results can be made in the context of the updated reference intervals. Potassium 3.8 3.4 - 5.3 mmol/L 06/22/2023 5:22 PM [facility] Chloride 99 98 - 107 mmol/L 06/22/2023 5:22 PM [facility] Carbon Dioxide (CO2) 25 22 - 29 mmol/L 06/22/2023 5:22 PM [facility] Anion Gap 11 7 - 15 mmol/L 06/22/2023 5:22 PM [facility] Urea Nitrogen 6.3 6.0 - 20.0 mg/dL 06/22/2023 5:22 PM [facility] Creatinine 0.66 0.51 - 0.95 mg/dL 06/22/2023 5:22 PM [facility] GFR Estimate >90 >60 mL/min/1. 73m2 06/22/2023 5:22 PM [facility] Calcium 9.2 8.6 - 10.0 mg/dL 06/22/2023 5:22 PM [facility] Glucose 101(H) 70 - 99 mg/dL 06/22/2023 5:22 PM [facility] Blood STRUCTURE OF RIGHT UPPER LIMB / Unknown Venipuncture / Unknown 06/22/2023 4:46 PM [facility]ING [facility]PENTER 06/22/2023 5:00 PM [facility]PENTER Sae Mendez MD LAB - BLOOD ORDER CLAUDIA Performing Organization Address City/[facility]/ZIP Co de Phone Number [facility] [address] [employer] Lab (1st floor, no room number) [place] [address], [place] [phone] * HCG qualitative urine (UPT) (06/22/2023 4:35 PM FIXING CARPENTER) hCG Urine Qualitative Negative Negative [place] 06/22/2023 8:01 PM [facility] LABORATORY Comment:This test is for scr eening purposes. Results should be interpreted along with the clinical picture. Confirmation testing is available if warranted by ordering [id number], HCG Quantitative . Urine MID-STREAM URINE SPECIMEN / Unknown Non-blood Collection / Unknown 06/22/2023 4:35 PM FIXING CARPENTER 06/22/2023 7:15 PM [facility]ING [facility]PENTER Sae Mendez MD LAB - URINE ORDER CLAUDIA Performing Organization Address [facility]/ZIP Co de Phone Number [facility] [address] Lab (1st floor, no room number) [place] [address], [place] [phone] * (ABNORMAL) UA with Microscopic reflex to Culture (06/22/2023 4:35 PM [facility]ING CARPENTER) Color Urine Light Yellow Colorless, Straw, Light Yellow, Yellow 06/22/2023 7:41 PM [facility] LABORATORY Appearance Urine Clear Clear 06/22/19 24 7:41 PM [facility] LAB[facility] Glucose Urine Negative Negative mg/dL 06/22/2023 7:41 PM [facility] Bilirubin Urine Negative Negative 7:41 PM [facility] Ketones Urine Negative Negative mg/dL 06/22/2023 7:41 PM [facility] LABOR[facility] Specific [place] Urine 1.016 1.003 - 1.035 06/22/2023 7:41 PM [facility] Blood Urine Negative Negative 06/22/2023 7:41 PM [facility] pH Urine 7.5(H) 5.0 - 7.0 06/22/2023 7:41 PM [facility] Protein Albumin Urine Negative Negative mg/dL 06/22/2023 7:41 PM [facility] Urobilinogen Urine Normal Normal, 2.0 mg/dL 06/22/2023 7:41 PM [facility] Nitrite Urine Negative Negative 06/22/2023 7:41 PM [facility] Leukocyte Esterase Urine Negative Negative 06/22/2023 7:41 PM [facility] Bacteria Urine Few(A) None Seen /HPF 06/22/2023 7:41 PM [facility] Mucus Urine Present(A) None Seen /LPF 06/22/2023 7:41 PM [facility] RBC Urine <1 <=2 /HPF 06/22/2023 7:41 PM [facility] WBC Urine <1 <=5 /HPF 06/22/2023 7:41 PM [facility] Squamous Epithelials Urine 5(H) <=1 /HPF 06/22/2023 7:41 PM [facility] Urine MID-STREAM URINE SPECIMEN / Unknown Non-blood Collection / Unknown 06/22/2023 4:35 PM [facility]ING [facility]PENTER 06/22/2023 7:15 PM [facility]ING [facility]PENTER Narrative [facility] - 06/22/2023 7:41 PM [facility]PENTER Urine Culture not indicated Sae Mendez MD LAB - URINE ORDER CLAUDIA LABORATORY [facility] [address] Lab (1st floor, no room number) [place] [address], [place] [phone] from Last 3 Months Care Teams Skein Yarn Drier Relationship Specialty [place] [id number] [place] [address] PCP - General Family Practice 11/27/18 [place] [address] [place] [address] Assigned PCP 05/11/20
--- OUTSIDE RECORDS SUMMARY | 2023-08-29 14:51 | XMS_ITS | Encounter Summary ---
Author Name Unknown Organization [facility] Address [address] [place] [address] Care Team Providers Care Geography Instructor Name Role Phone Leslie Silvestre MD Primary Care Provider [phone] Leslie Silvestre MD Unavailable [phone] Encounter Details Date Type Department Care Team (Latest Contact Info) Description 08/03/2023 Travel Social History Tobacco Use Types Packs/Day [...] often do you attend chur ch or nondenominational services? Never 07/05/2022 Do you belong to any clubs o r organizations such as hinduism groups, unions, fraternal or athletic groups, or [...] Answer Date Recorded PHQ-2 Score 5 01/31/2023 [facility] Occupat ional [facility] [place] - Occupational Stress Questionnaire Answer Date Recorded [...] a fpc (including now)? Patient refused 07/05/2022 [place] Depression Scale Answer Date Recorded [place] Depression Score 0 12/07/2018 Last EPDS Self Harm Result Not on file 12/07 Education Answer Date Recorded What is the highest level of school you have completed or the highest degree you have received? 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
--- OUTSIDE RECORDS SUMMARY | 2023-08-29 14:51 | XMS_ITS | Encounter Summary ---
Author Name Unknown Organization [facility] Address [address] [place] [address] Care Team Providers Care Clothing Room Supervisor Name Role Phone Leslie Silvestre MD Primary Care Provider [phone] Leslie Silvestre MD Unavailable [phone] Encounter Details Date Type Department Care Team (Late st Contact Info) Description 04/20/2021 MyC Medical Advice [address] [place] [phone] Liz Stern RN Social History Tobacco Use Types Packs/Day [...] and Family Once a week 06/28/2019 Attends Voodoo Services Never 06/28 Active Member of Clubs [...] Answer Date Recorded PHQ-2 Score 0 08/28/2020 [facility] [place] of Occupat ional Health - Occupational Stress [...] things needed for daily living? No 06/28/2019 [place] Depression Scale Answer Date Recorded [place] Depression Score 0 12/07/2018 Last EPDS Self Harm Result Not on file 12/07 Education Answer Date Recorded What is the highest level of school you have completed or the highest degree you have received? 12th grade 06/28/2019 Sex and Gender Information Value Date Recorded Sex Assigned at Female 06/28/2018 11:22 AM FORGING DIES FINAL FINISHER Gender Identity Female 06/28/2018 11:22 AM FORGING DIES FINAL FINISHER Sexual Orientation Not on file COVID-19 Exposure Response Date Recorded In the last month, have you been in contact with someone who was confirmed or suspected to have Coronavirus / COVID-19? No / Unsure 04/23/2021 11:47 AM FORGING DIES FINAL FINISHER documented as of this encounter Plan of Treatment Not on file documented as of this encounter Visit Diagnoses Not on filedocumented in this encounter Additional Health Concerns Assessment Noted Time PHQ-9 Depression Total Score: 5 04/30/20 20 3:13 PM FORGING DIES FINAL FINISHER documented as of this encounter Care Teams Clothing Room Supervisor Relationship Specialty [place] [address] [place] [address] PCP - General Family Practice 11/27/18 [place] [address] [place] [address] Assigned PCP 05/11/20 documented as of this encounter
--- OUTSIDE RECORDS SUMMARY | 2023-08-29 14:51 | XMS_ITS | Encounter Summary ---
Author Name Unknown Organization [facility] Address [address] [place] [address] Care Team Providers Care Multi Media Specialist Name Role Phone Leslie Silvestre MD Primary Care Provider [phone] Leslie Silvestre MD Unavailable [phone] Encounter Details Date Type Department Care Team (Late st Contact Info) Description 11/19/[address] [facility] Women[facility] [address] [place] [address] Corina Palacios Social History Tobacco Use Types [...] Answer Date Recorded PHQ-2 Score 0 08/28/2020 [facility] of Occupat ional Health - [...] things needed for daily living? No 06/28/2019 [place] Depression Scale Answer Date Recorded [place] Depression Score 0 12/07/2018 Last EPDS Self Harm Result Not on file 12/07 Education Answer Date Recorded What is the highest level of school you have completed or the highest degree you have received? 12th grade 06/28/2019 Sex and Gender Information Value Date Recorded Sex Assigned at Female 06/28/2018 11:22 AM BAG SORTER Gender Identity Female 06/28/2018 11:22 AM BAG SORTER Sexual Orientation Not on file COVID-19 Exposure [...] Total Score: 5 04/30/20 20 3:13 PM BAG SORTER documented as of this encounter Care Teams Multi Media Specialist Relationship Specialty [place] [address] [place] [address] PCP - General Family Practice 11/27/18 [place] [address] [place] [address] Assigned PCP 05/11/20 documented as of this encounter
--- OUTSIDE RECORDS SUMMARY | 2023-08-29 14:52 | XMS_ITS | Encounter Summary ---
Author Name Unknown Organization [facility] Address [address] [place] [address] Care Team Providers Care Office Clerk Routine Name Role Phone Patricia Tobin MD Unavailable + [facility] Primary Care Provider Patricia Tboin MD Unavailable + Roro Garber ACCOUNT CONSULTANT Unavailable [phone] Ref-Primary, Physician Primary Care Provider Leslie Silvestre MD Unavailable [phone] Leslie Silvestre MD Primary Care Provider [phone] Patricia Tobin MD Unavailable + Karen Miller Unavailable Unavailable OLeslie Espinosa MD Unavailable [phone] Reason for Visit * Reason Onset Date Comments Care 07/15/2018 [place] Encounter Details Date Type Department Care Team (Late st Contact Info) Description 07/15/2018 MyC Medical Advice [facility] Women's [address] [place] [phone] Tarah Fields CNM NO INFO AVAILABLE 05/13/2022 [...] Sex Assigned at Female 06/28/2018 11:22 AM AIR AND WATER TESTER Gender Identity Female 06/28/2018 11:22 AM AIR AND WATER TESTER Sexual Orientation Not on file documented as of this encounter Plan of Treatment Not on file documented as of this encounter Visit Diagnoses Not on filedocumented in this encounter Additional Health Concerns Assessment Noted Time PHQ-9 Depression Total Score: 16 024 9:26 AM CDT documented as of this encounter Care Teams Office Clerk Routine Relationship Specialty Start Date End Date Patricia Tobin MD PRIMARY ENT [address] [facility] [address] [place] [address] PCP - Assigned PCP 05/14/18 07/25/[address] [address] PCP - General Internal Medicine 07/03/18 09/28/18 No Ref-Primary, Physician PCP - General 09/29/18 11/26/18 [place] [address] [place] [address] PCP - General Family Practice 11/27/18 Patricia Tobin MD PRIMARY ENT [address] [facility] [address] [place] [address] Assigned PCP 06/11/18 10/14/18 Roro Garber, ACCOUNT CONSULTANT [facility] Primary Care - CC 07/26/18 [place] [address] [facility] [place] [address] Assigned PCP 10/15/18 12/08/19 Patricia Tobin MD PRIMARY ENT [address] [place] [address] Assigned PCP 12/09/19 05/10/20 Karen Miller Personal Advocate & Liaison (PAL) Family Medicine 04/30/20 08/26/20 [place] [address] [facility] [place] [address] Assigned PCP 05/11/20 documented as of this encounter
--- OUTSIDE RECORDS SUMMARY | 2023-08-29 14:52 | XMS_ITS | Encounter Summary ---
Author Name Unknown Organization [facility] Address [address] [place] [address] Care Team Providers Care Shot Grinder Operator Name Role Phone Leslie Silvestre MD Primary Care Provider [phone] Karen Miller Unavailable Unavailable Leslie Silvestre MD Unavailable [phone] Reason for Visit * Reason Onset Date Comments Patient Request 05/14/2020 Encounter Details Date Type Department Care Team (Late st Contact Info) Description 05/14/2020 MyC Medical Advice [address] [address] [place] [id number] [place] [address] Patient Request Social History Tobacco Use [...] and Family Once a week 06/28/2019 Attends Mandaen Services Never 06/28 Active Member of Clubs [...] Answer Date Recorded PHQ-2 Score 2 04/30/2020 [facility] of Occupat ional Health - Occupational Stress [...] things needed for daily living? No 06/28/2019 [place] Depression Scale Answer Date Recorded [place] Depression Score 0 12/07/2018 Last EPDS Self Harm Result Not on file 12/07 Education Answer Date Recorded What is the highest level of school you have completed or the highest degree you have received? 12th grade 06/28/2019 Sex and Gender Information Value Date Recorded Sex Assigned at Female 06/28/2018 11:22 AM SMALL BUSINESS DIRECTOR Gender Identity Female 06/28/2018 11:22 AM SMALL BUSINESS DIRECTOR Sexual Orientation Not on file COVID-19 Exposure Response Date Recorded In the last month, have you been in contact with someone who was confirmed or suspected to have Coronavirus / COVID-19? No / Unsure 05/13/2020 11:14 AM SMALL BUSINESS DIRECTOR documented as of this encounter Miscellaneous Notes * Telephone Encounter - Alondra Florentino RN - 05/15/2020 7:[address] Silvestre- see mychart message below. Please advise. Alondra Florentino RN L BUSINESS DIRECTOR documented in this encounter Plan of Treatment Not on file documented as of this encounter Visit Diagnoses Not on filedocumented in this encounter Additional Health Concerns Assessment Noted Time PHQ-9 Depression Total Score: 5 04/30/20 3:13 PM SMALL BUSINESS DIRECTOR documented as of this encounter Care Teams Shot Grinder Operator Relationship Specialty [place] [address] [place], [place] [id number] PCP - General Family Practice 11/27/18 Karen Miller Personal Advocate & Liaison (PAL) Family Medicine 04/30/20 08/26/20 [place] [address] [place] [address] Assigned PCP 05/11/20 documented as of this encounter
--- OUTSIDE RECORDS SUMMARY | 2023-08-29 14:52 | XMS_ITS | Encounter Summary ---
Author Name Unknown Organization [facility] Address [address] [place] [address]. [place] [address] Care Team Providers Care Senior Chemist Name Role Phone [facility] Primary Care Provider Patricia Tobin MD Unavailable + No Ref-Primary, Physician Primary Care Provider Leslie Silvestre MD Unavailable [phone] Leslie Silvestre MD Primary Care Provider Patricia Tobin MD Unavailable + Karen Miller Unavailable Unavailable Leslie Silvestre MD Unavailable [phone] Reason for Visit * Reason Onset Date Comments MyChart Communication 09/16/2018 arm discom fort Encounter Details Date Type Department Care Team (Latest Contact Info) Description 09/16/2018 MyC Medical Advice [facility] [address] [place] [address] [place] [address] [place] [address] MyChart Communication (arm discomfort) Social History Tobacco Use Types Packs/Day Years Used Date Smoking Tobacco: Never Smokeless Tobacco: Never Alcohol Use Standard Drinks/Week Comments No 0 (1 standard drink = 0.6 oz pur e alcohol) PHQ-2 Answer Date Recorded PHQ-2 Score 4 09/18/2018 Comments Yes Sex and Gender Information Value Date Recorded Sex Assigned at Female 06/28/2018 11:22 AM AIRWAY TRAFFIC CONTROLLER Gender Identity Female 06/28/2018 11:22 AM AIRWAY TRAFFIC CONTROLLER Sexual Orientation Not on file documented as of this encounter Plan of Treatment Not on file documented as of this encounter Visit Diagnoses Not on filedocumented in this encounter Additional Health Concerns Assessment Noted Time PHQ-9 Depression Total Score: 16 024 9:26 AM CDT documented as of this encounter Care Teams Senior Chemist Relationship Specialty Start Date End Date [facility] - [address] [address] PCP - General Internal Medicine 07/03/18 09/28/18 No Ref-Primary, Physician PCP - General 09/29/18 11/26/18 [place] [address] [place], [place] [id number] PCP - General Family Practice 11/27/18 Patricia Tobin MD PRIMARY ENT [address] [place] [address] Assigned PCP 06/11/18 10/14/18 [place] [address] [place], [place] [id number] Assigned PCP 10/15/18 12/08/19 Patricia Tobin MD PRIMARY ENT [address] [place] [address] Assigned PCP 12/09/19 05/10/20 Karen Miller Personal Advocate & Liaison (PAL) Family Medicine 04/30/20 08/26/20 [place] [address] [place] [address] Assigned PCP 05/11/20 documented as of this encounter
--- OUTSIDE RECORDS SUMMARY | 2023-08-29 14:52 | XMS_ITS | Encounter Summary ---
Author Name Unknown Organization [facility] Address [address] [place] [address] Care Team Providers Care Piledriver Carpenter Name Role Phone Patricia Tobin MD Unavailable + [facility] Primary Care Provider Patricia Tobin MD Unavailable + Roro Garber EDI COORDINATOR Unavailable [phone] Ref-Primary, Physician Primary Care Provider Leslie Silvestre MD Unavailable [phone] Leslie Silvestre MD Primary Care Provider [phone] Patricia Tobin MD Unavailable + Karen Miller Unavailable Unavailable OLeslie Espinosa MD Unavailable [phone] Encounter Details Date Type Department Care Team (Late st Contact Info) Description 07/16/2018 MyC Medical Advice [facility] Women's [address] [place] [phone] Tarah Fields CNM NO INFO AVAILABLE 05/13/2022 Social History Tobacco Use Types Packs/Day Years Used Date Smoking Tobacco: Never Smokeless Tobacco: Never Alcohol Use Standard Drinks/Week Comments No 0 (1 standard drink = 0.6 oz pur e alcohol) PHQ-2 Answer Date Recorded PHQ-2 Score 4 07/18/2018 Comments Yes Sex and Gender Information Value Date Recorded Sex Assigned at Female 06/28/2018 11:22 AM ELECTRIC ARC FURNACE OPERATOR Gender Identity Female 06/28/2018 11:22 AM ELECTRIC ARC FURNACE OPERATOR Sexual Orientation Not on file documented as of this encounter Miscellaneous Notes * Telephone Encounter - Sridevi Valdez RN - 07/17/2018 8:09 AM CST See other mychart message. Sridevi Wayne R.N. [facility] TRIC ARC FURNACE OPERATOR documented in this encounter Plan of Treatment Not on file documented as of this encounter Visit Diagnoses Not on filedocumented in this encounter Additional Health Concerns Assessment Noted Time PHQ-9 Depression Total Score: 16 024 9:26 AM CDT documented as of this encounter Care Teams Piledriver Carpenter Relationship Specialty Start Date End Date Patricia Tobin MD PRIMARY ENT [address] [facility] [address] [place], [place] [address] PCP - Assigned PCP 05/14/18 07/25/[address] [address] PCP - General Internal Medicine 07/03/18 09/28/18 No Ref-Primary, Physician PCP - General 09/29/18 11/26/18 [place] [address] [place] [address] PCP - General Family Practice 11/27/18 Patricia Tobin MD PRIMARY ENT [address] [facility] [address] [place] [address] Assigned PCP 06/11/18 10/14/18 Roro Garber, [facility] Clinic Forensic Engineer Primary Care - CC 07/26/18 [place] [address] [place], [place] [id number] Assigned PCP 10/15/18 12/08/19 Patricia Tobin MD PRIMARY ENT [address] [place] [address] Assigned PCP 12/09/19 05/10/20 Karen Miller Personal Advocate & Liaison (PAL) Family Medicine 04/30/20 08/26/20 [place] [address] [place] [address] Assigned PCP 05/11/20 documented as of this encounter
--- OUTSIDE RECORDS SUMMARY | 2023-08-29 14:52 | XMS_ITS | Encounter Summary ---
Author Name Unknown Organization [facility] Address [address] [place] [address] Care Team Providers Care Horse Breeder Name Role Phone Leslie Silvestre MD Unavailable [phone] Leslie Silvestre MD Primary Care Provider [phone] Patricia Tobin MD Unavailable + Karen Miller Unavailable Unavailable OLeslie Espinosa MD Unavailable [phone] Encounter Details Date Type Department Care Team (Late st Contact Info) Description 05/25/2019 MyC Medical Advice [address] [address] Sydni Davalos, SELECTOR PACKER Social History Tobacco Use Types Packs/Day Years Used Date Smoking Tobacco: Never Smokeless Tobacco: Never Alcohol Use Standard Drinks/Week Comments No 0 (1 standard drink = 0.6 oz pur e alcohol) PHQ-2 Answer Date Recorded PHQ-2 Score 0 11/20/2018 [place] Depression Scale Answer Date Recorded [place] Depression Score 0 12/07/2018 Last EPDS Self Harm Result Not on file 12/07 Sex and Gender Information Value Date Recorded Sex Assigned at Female 06/28/2018 11:22 AM TRANSIT MANAGER Gender Identity Female 06/28/2018 11:22 AM TRANSIT MANAGER Sexual Orientation Not on file documented as of this encounter Plan of Treatment Not on file documented as of this encounter Visit Diagnoses Not on filedocumented in this encounter Additional Health Concerns Assessment Noted Time PHQ-9 Depression Total Score: 16 04 024 9:26 AM CDT documented as of this encounter Care Teams Horse Breeder Relationship Specialty [place] [address] [place] [address] PCP - General Family Practice 11/27/18 [place] [address] [place] [address] Assigned PCP 10/15/18 12/08/19 Patricia Tobin MD PRIMARY ENT [address] [place], [place] [address] Assigned PCP 12/09/19 05/10/20 Karen Miller Personal Advocate & Liaison (PAL) Family Medicine 04/30/20 08/26/20 [place] [address] [place] [address] Assigned PCP 05/11/20 documented as of this encounter
--- OUTSIDE RECORDS SUMMARY | 2023-08-29 14:52 | XMS_ITS | Encounter Summary ---
Author Name Unknown Organization [facility] Address [address] [place] [address]. [place] [address] Care Team Providers Care Merchandising Lead Name Role Phone [facility] Primary Care Provider Patricia Tobin MD Unavailable + No Ref-Primary, Physician Primary Care Provider Leslie Silvestre MD Unavailable [phone] Leslie Silvestre MD Primary Care Provider [phone] Patricia Tobin MD Unavailable + Karen Miller Unavailable Unavailable OLeslie Espinosa MD Unavailable [phone] Reason for Visit * Reason Onset Date Comments MyChart Communication 09/18/2018 left arm i ssue Encounter Details Date Type Department Care Team (Latest Contact Info) Description 09/18/2018 MyC Medical Advice [facility] [address] [place] [phone] [place] [address] [place] [address] MyChart Communication (left arm issue) Social History Tobacco Use Types Packs/Day Years Used Date Smoking Tobacco: Never Smokeless Tobacco: Never Alcohol Use Standard Drinks/Week Comments No 0 (1 standard drink = 0.6 oz pur e alcohol) PHQ-2 Answer Date Recorded PHQ-2 Score 4 09/18/2018 Comments Yes Sex and Gender Information Value Date Recorded Sex Assigned at Female 06/28/2018 11:22 AM ORCHID HAND Gender Identity Female 06/28/2018 11:22 AM ORCHID HAND Sexual Orientation Not on file documented as of this encounter Plan of Treatment Not on file documented as of this encounter Visit Diagnoses Not on filedocumented in this encounter Additional Health Concerns Assessment Noted Time PHQ-9 Depression Total Score: 16 024 9:26 AM CDT documented as of this encounter Care Teams Merchandising Lead Relationship Specialty Start Date End Date [facility] - [address] [phone] PCP - General Internal Medicine 07/03/18 09/28/18 No Ref-Primary, Physician PCP - General 09/29/18 11/26/18 [place] [address] [place], [place] [phone] PCP - General Family Practice 11/27/18 Patricia Tobin MD PRIMARY ENT [address] [place] [address] Assigned PCP 06/11/18 10/14/18 [place] [address] [place], [place] [id number] Assigned PCP 10/15/18 12/08/19 Patricia Tobin MD PRIMARY ENT [address] [place], [place] [address] Assigned PCP 12/09/19 05/10/20 Karen Miller Personal Advocate & Liaison (PAL) Family Medicine 04/30/20 08/26/20 [place] [address] [place] [address] Assigned PCP 05/11/20 documented as of this encounter
--- OUTSIDE RECORDS SUMMARY | 2023-08-29 14:52 | XMS_ITS | Encounter Summary ---
Author Name Unknown Organization [facility] Address [address] [place] [address] Care Team Providers Care Cutter Finisher Name Role Phone Leslie Silvestre MD Primary Care Provider [phone] Katja Catalan MD Primary Care Provider [facility] Primary Care Provide r No Ref-Primary, Physician Primary Care Provider Natasha Horta APRN AIR COMPRESSOR MECHANIC Unavailable + Patricia Tobin MD Unavailable + [facility] Primary Care Provider Patricia Tobin MD Unavailable + Roro Garber GARBAGE COLLECTION SUPERVISOR Unavailable [phone] No Ref-Primary, Physician Primary Care Provider Leslie Silvestre MD Unavailable [phone] Leslie Silvestre MD Primary Care Provider [phone] Patricia Tobin MD Unavailable + Karen Miller Unavailable Unavailable Leslie Silvestre MD Unavailable [phone] Encounter Details Date Type Department Care Team (Late st Contact Info) Description 03/30/2003 [facility] [address] [place] [phone] [place] [address] [place] [address] ER ENCOUNTER (Primary Dx) Social History Tobacco [...] Sex Assigned at Female 06/28/2018 11:22 AM TRANSFORMER INSPECTOR Gender Identity Female 06/28/2018 11:22 AM TRANSFORMER INSPECTOR Sexual Orientation Not on file documented as of this encounter Progress Notes * 03/30/2003 11:59 PM [id number] 00:00 Emergency Department Encounter-[facility] () [Entered: [facility] tion([facility])] : 98 CHIEF COMPLAINT: Sore throat. [...] Stable. [id number] DINA THORNTON MD [place]: Document: [id number] [place], [place] Name: JACOB ROBLERO Electronically filed by Sarah Liriano 04/01 12:41 PM documented in this encounter Plan of Treatment Not on file documented as of this encounter Visit Diagnoses Diagnosis ER ENCOUNTER- Primary documented in this encounter Care Teams Cutter Finisher Relationship Specialty [place] [address] [place] [address] PCP - General 07/22/03 12/17/13 [place] [address] [place] [address] PCP - General Family Practice 12/18/13 05/27/17 [facility] [address] [place], [place] [id number] PCP - General 05/28/17 03/29/18 No Ref-Primary, Physician PCP - General 03/30/18 07/02/18 Natasha Horta APRN AIR COMPRESSOR MECHANIC [address] [facility] [place] [address] PCP - Assigned PCP 02/12/18 05/13/18 Patricia Tobin MD [facility] E[facility] [address] [facility] [address] [place] [address] PCP - Assigned PCP 05/14/18 07/25/[address] 064287 PCP - General Internal Medicine 07/03/18 09/28/18 No Ref-Primary, Physician PCP - General 09/29/18 11/26/18 [place] [address] [place] [address] PCP - General Family Practice 11/27/18 Patricia Tobin MD PRIMARY ENT [id number] [place] [address] [address] [place] [address] Assigned PCP 06/11/18 10/14/18 Roro Garber, [facility] Clinic Molding Machine Setter Primary Care - CC 07/26/18 [place] [address] [place] [address] Assigned PCP 10/15/18 12/08/19 Patricia Tobin MD PRIMARY ENT [address] [facility] [address] [place] [address] Assigned PCP 12/09/19 05/10/20 Karen Miller Personal Advocate & Liaison (PAL) Family Medicine 04/30/20 08/26/20 [place] [address] [place] [address] Assigned PCP 05/11/20 documented as of this encounter
--- OUTSIDE RECORDS SUMMARY | 2023-08-29 14:52 | XMS_ITS | Encounter Summary ---
Author Name Unknown Organization [facility] Address [address] [place] [address] Care Team Providers Care Foundation Relations Director Name Role Phone [facility] Primary Care Provide r No Ref-Primary, Physician Primary Care Provider Natasha Horta APRN RETURNED TELEPHONE EQUIPMENT APPRAISER Unavailable + Patricia Tobin MD Unavailable + [facility] Primary Care Provider Patricia Tobin MD Unavailable + Roro Garber PRODUCT DISTRIBUTION SPECIALIST Unavailable [phone] No Ref-Primary, Physician Primary Care Provider Leslie Silvestre MD Unavailable [phone] Leslie Silvestre MD Primary Care Provider [phone] Patricia Tobin MD Unavailable + Karen Miller Unavailable Unavailable OLeslie Espinosa MD Unavailable [phone] Reason for Visit * Reason Onset Date Comments Medication Question 06/02/2017 Lexapro, Santiago rax Encounter Details Date Type Department Care Team (Late st Contact Info) Description 06/02/[address] [facility], [address] [place] [phone] Gonzalez Catalan PA-C [address] [place], [place] [phone] Medication Question (Lexapro, Atarax) Social History Tobacco Use Types Packs/Day Years Used Date Smoking Tobacco: Never Smokeless Tobacco: Never Alcohol Use Standard Drinks/Week Comments No 0 (1 standard drink = 0.6 oz pur e alcohol) Sex and Gender Information Value Date Recorded Sex Assigned at Female 06/28/2018 11:22 AM CHECK CLERK Gender Identity Female 06/28/2018 11:22 AM CHECK CLERK Sexual Orientation Not on file documented as of this encounter Plan of Treatment Not on file documented as of this encounter Visit Diagnoses Not on filedocumented in this encounter Care Teams Foundation Relations Director Relationship Specialty Start Date End Date [facility] [place], [place] [id number] PCP - General 05/28/17 03/29/18 No Ref-Primary, Physician PCP - General 03/30/18 07/02/18 Natasha Horta APRN RETURNED TELEPHONE EQUIPMENT APPRAISER [address] [place] [address] PCP - Assigned PCP 02/12/18 05/13/18 Patricia Tobin MD PRIMARY ENT [address] [place], [place] [address] PCP - Assigned PCP 05/14/18 07/25/[address] [address] PCP - General Internal Medicine 07/03/18 09/28/18 No Ref-Primary, Physician PCP - General 09/29/18 11/26/18 [place] [address] [facility] [place] [address] PCP - General Family Practice 11/27/18 Patricia Tobin MD PRIMARY ENT [address] [facility] [address] [place] [address] Assigned PCP 06/11/18 10/14/18 Roro Garber, [facility] Clinic Commodity Merchant Primary Care - CC 07/26/18 [place] [address] [facility] [place] [address] Assigned PCP 10/15/18 12/08/19 Patricia Tobin MD PRIMARY ENT [address] [facility] [address] [place] [address] Assigned PCP 12/09/19 05/10/20 Karen Miller Personal Advocate & Liaison (PAL) Family Medicine 04/30/20 08/26/20 [place] [address] [facility] [place] [address] Assigned PCP 05/11/20 documented as of this encounter
--- OUTSIDE RECORDS SUMMARY | 2023-08-29 14:52 | XMS_ITS | Encounter Summary ---
Author Name Unknown Organization [facility] Address [address] [place] [address] Care Team Providers Care Utility Person Name Role Phone Leslie Silvestre MD Primary Care Provider [phone] Karen Miller Unavailable Unavailable Leslie Silvestre MD Unavailable [phone] Encounter Details Date Type Department Care Team (Late st Contact Info) Description 05/29/2020 MyC Medical Advice [facility] [address] [place] [phone] [place] [id number] [place] [address] Social History Tobacco Use Types Packs/Day [...] and Family Once a week 06/28/2019 Attends Hinduism Services Never 06/28 Active Member of Clubs [...] Answer Date Recorded PHQ-2 Score 2 04/30/2020 [facility] of Occupat ional [...] things needed for daily living? No 06/28/2019 [place] Depression Scale Answer Date Recorded [place] Depression Score 0 12/07/2018 Last EPDS Self Harm Result Not on file 12/07 Education Answer Date Recorded What is the highest level of school you have completed or the highest degree you have received? 12th grade 06/28/2019 Sex and Gender Information Value Date Recorded Sex Assigned at Female 06/28/2018 11:22 AM CERTIFIED GENETIC COUNSELOR Gender Identity Female 06/28/2018 11:22 AM CERTIFIED GENETIC COUNSELOR Sexual Orientation Not on file COVID-19 Exposure Response Date Recorded In the last month, have you been in contact with someone who was confirmed or suspected to have Coronavirus / COVID-19? No / Unsure 05/29/2020 9:40 AM CERTIFIED GENETIC COUNSELOR documented as of this encounter Miscellaneous Notes * Telephone Encounter - Evens Santana RN - 05/29/2020 5:52 PM CST Responded to patient via [employer], will monitor response Evens Santana RN IFIED GENETIC COUNSELOR * Telephone Encounter - Leslie Silvestre MD - 05/29/2020 5:43 PM CST I believe the control pill would be best to regulate her cycle and protect future fertility. If she is trying to conceive, I can refer her to POST ANESTHESIA NURSE for treatment and fertility consult IFIED GENETIC COUNSELOR documented in this encounter Plan of Treatment Not on file documented as of this encounter Visit Diagnoses Not on filedocumented in this encounter Additional Health Concerns Assessment Noted Time PHQ-9 Depression Total Score: 5 04/30/20 20 3:13 PM CERTIFIED GENETIC COUNSELOR documented as of this encounter Care Teams Utility Person Relationship Specialty Start [place] [address] [place] [address] PCP - General Family Practice 11/27/18 Karen Miller Personal Advocate & Liaison (PAL) Family Medicine 04/30/20 08/26/20 [place] [address] [place] [address] Assigned PCP 05/11/20 documented as of this encounter
--- OUTSIDE RECORDS SUMMARY | 2023-08-29 14:52 | XMS_ITS | Encounter Summary ---
Author Name Unknown Organization [facility] Address [address] [place] [address]. [place] [address] Care Team Providers Care Cutter Operator Asbestos Shingle Name Role Phone Leslie Silvestre MD Unavailable [phone] Leslie Silvestre MD Primary Care Provider [phone] Patricia Tobin MD Unavailable + Karen Miller Unavailable Unavailable OLeslie Espinosa MD Unavailable [phone] Reason for Visit * Reason Onset Date Comments Patient Request 12/11/2018 Encounter Details Date Type Department Care Team (Late st Contact Info) Description 12/11/2018 MyC Medical Advice [address] [phone] Leslie Silvestre MD [address] [place] [id number] Patient Request Social History Tobacco Use Types Packs/Day Years Used Date Smoking Tobacco: Never Smokeless Tobacco: Never Alcohol Use Standard Drinks/Week Comments No 0 (1 standard drink = 0.6 oz pur e alcohol) PHQ-2 Answer Date Recorded PHQ-2 Score 0 11/20/2018 [place] Depression Scale Answer Date Recorded [place] Depression Score 0 12/07/2018 Last EPDS Self Harm Result Not on file 12/07 Sex and Gender Information Value Date Recorded Sex Assigned at Female 06/28/2018 11:22 AM MANAGER CODE Gender Identity Female 06/28/2018 11:22 AM MANAGER CODE Sexual Orientation Not on file documented as of this encounter Miscellaneous Notes * Telephone Encounter - Melanie Guevara RN - 12/12/2018 7:09 AM CDT Please see my chart message and response Thank you Melanie Guevara, Registered Nurse [facility] documented in this encounter Plan of Treatment Not on file documented as of this encounter Visit Diagnoses Not on filedocumented in this encounter Additional Health Concerns Assessment Noted Time PHQ-9 Depression Total Score: 16 024 9:26 AM CDT documented as of this encounter Care Teams Cutter Operator Asbestos Shingle Relationship Specialty [place] [address] [place] [address] PCP - General Family Practice 11/27/18 [place] [address] [place] [address] Assigned PCP 10/15/18 12/08/19 Patricia Tobin MD PRIMARY ENT [address] [place] [address] Assigned PCP 12/09/19 05/10/20 Karen Miller Personal Advocate & Liaison (PAL) Family Medicine 04/30/20 08/26/20 [place] [address] [place] [address] Assigned PCP 05/11/20 documented as of this encounter
--- OUTSIDE RECORDS SUMMARY | 2023-08-29 14:52 | XMS_ITS | Encounter Summary ---
Author Name Unknown Organization [facility] Address [address] [place] [address] Care Team Providers Care Eco Industrial Development Consultant Name Role Phone Leslie Silvestre MD Primary Care Provider [phone] Leslie Silvestre MD Unavailable [phone] Reason for Visit * Reason Onset Date Comments MyChart Communication 11/12/2020 Encounter Details Date Type Department Care Team (Latest Contact Info) Description 11/12/2020 MyC Medical Advice [address] [phone] [place] [id number] [place] [address] MyChart Communication Social History Tobacco Use [...] and Family Once a week 06/28/2019 Attends [employer] Never 06/28 Active Member of Clubs [...] Answer Date Recorded PHQ-2 Score 0 08/28/2020 [facility] of Occupat ional Health - Occupational [...] things needed for daily living? No 06/28/2019 [place] Depression Scale Answer Date Recorded [place] Depression Score 0 12/07/2018 Last EPDS Self Harm Result Not on file 12/07 Education Answer Date Recorded What is the highest level of school you have completed or the highest degree you have received? 12th grade 06/28/2019 Sex and Gender Information Value Date Recorded Sex Assigned at Female 06/28/2018 11:22 AM HOME APPLIANCE WASHING MACHINE MECHANIC Gender Identity Female 06/28/2018 11:22 AM HOME APPLIANCE WASHING MACHINE MECHANIC Sexual Orientation Not on file COVID-19 Exposure [...] to triage for review. Harjeet Connolly CMA ([facility]) documented in this encounter Plan of Treatment Not on file documented as of this encounter Visit Diagnoses Not on filedocumented in this encounter Additional Health Concerns Assessment Noted Time PHQ-9 Depression Total Score: 5 04/30/20 20 3:13 PM HOME APPLIANCE WASHING MACHINE MECHANIC documented as of this encounter Care Teams Eco Industrial Development Consultant Relationship Specialty [place] [address] [place] [address] PCP - General Family Practice 11/27/18 [place] [address] [place] [address] Assigned PCP 05/11/20 documented as of this encounter
--- OUTSIDE RECORDS SUMMARY | 2023-08-29 14:52 | XMS_ITS | Encounter Summary ---
Author Name Unknown Organization [facility] Address [address] [place] [address] Care Team Providers Care Police Records Clerk Name Role Phone [facility] Primary Care Provider Patricia Tobin MD Unavailable + No Ref-Primary, Physician Primary Care Provider Leslie Silvestre MD Unavailable [phone] Leslie Silvestre MD Primary Care Provider Patricia Tobin MD Unavailable + Karen Miller Unavailable Unavailable Leslie Silvestre MD Unavailable [phone] Reason for Visit * Reason Onset Date Comments MyChart Communication 09/18/2018 update 08/22 12/08 MyChart message left arm discomfort Encounter Details Date Type Department Care Team (Latest Contact Info) Description 09/18/2018 MyC Medical Advice [facility] [address] [place] [phone] [place] [address] [place] [address] MyChart Communication (update 09/16/18 MyCh... Social History Tobacco Use Types Packs/Day Years Used Date Smoking Tobacco: Never Smokeless Tobacco: Never Alcohol Use Standard Drinks/Week Comments No 0 (1 standard drink = 0.6 oz pur e alcohol) PHQ-2 Answer Date Recorded PHQ-2 Score 4 09/18/2018 Comments Yes Sex and Gender Information Value Date Recorded Sex Assigned at Female 06/28/2018 11:22 AM BOW MAKER GIFT WRAPPING Gender Identity Female 06/28/2018 11:22 AM BOW MAKER GIFT WRAPPING Sexual Orientation Not on file documented as of this encounter Plan of Treatment Not on file documented as of this encounter Visit Diagnoses Not on filedocumented in this encounter Additional Health Concerns Assessment Noted Time PHQ-9 Depression Total Score: 16 024 9:26 AM CDT documented as of this encounter Care Teams Police Records Clerk Relationship Specialty Start Date End Date Clinic - [address] [address] PCP - General Internal Medicine 07/03/18 09/28/18 No Ref-Primary, Physician PCP - General 09/29/18 11/26/18 [place] [address] [place], [place] [id number] PCP - General Family Practice 11/27/18 Patricia Tobin MD PRIMARY ENT [address] [facility] [facility] [address] [place] [address] Assigned PCP 06/11/18 10/14/18 [place] [address] [place], [place] [address] Assigned PCP 10/15/18 12/08/19 Patricia Tobin MD PRIMARY ENT [address] [facility] [facility] [address] [place] [address] Assigned PCP 12/09/19 05/10/20 Karen Miller Personal Advocate & Liaison (PAL) Family Medicine 04/30/20 08/26/20 [place] [address] [place] [address] Assigned PCP 05/11/20 documented as of this encounter
--- OUTSIDE RECORDS SUMMARY | 2023-08-29 14:52 | XMS_ITS | Encounter Summary ---
Author Name Unknown Organization [facility] Address [address] [place] [address] Care Team Providers Care Supervisor Network Control Operators Name Role Phone [facility] Primary Care Provider Patricia Tobin MD Unavailable + Roro Garber AUTOMATION SOFTWARE ENGINEER Unavailable [phone] Ref-Primary, Physician Primary Care Provider Leslie Silvestre MD Unavailable [phone] Leslie Silvestre MD Primary Care Provider [phone] Patricia Tobin MD Unavailable + Karen Miller Unavailable Unavailable Leslie Silvestre MD Unavailable [phone] Reason for Visit * Reason Onset Date Comments Care 08/05/2018 palpatations Encounter Details Date Type Department Care Team (Late st Contact Info) Description 08/05/2018 MyC Medical Advice [facility] [address] [place] [address] Tarah Fields CNM NO INFO [...] Sex Assigned at Female 06/28/2018 11:22 AM DRAPERY EXAMINER Gender Identity Female 06/28/2018 11:22 AM DRAPERY EXAMINER Sexual Orientation Not on file documented as of this encounter Miscellaneous Notes * Telephone Encounter - Sridevi Valdez, RN - 08/07/2018 8:31 AM CDT Do you want a referral to cardiology or for her to see IM for ekg, she has had palpitations again. Sridevi Wayne R.N. [facility] documented in this encounter Plan of Treatment Not on file documented as of this encounter Visit Diagnoses Not on filedocumented in this encounter Additional Health Concerns Assessment Noted Time PHQ-9 Depression Total Score: 16 024 9:26 AM CDT documented as of this encounter Care Teams Supervisor Network Control Operators Relationship Specialty Start Date End Date Clinic - [address] [address] PCP - General Internal Medicine 07/03/18 09/28/18 No Ref-Primary, Physician PCP - General 09/29/18 11/26/18 [place] [address] [place] [address] PCP - General Family Practice 11/27/18 Patricia Tobin MD PRIMARY ENT [address] [facility] [address] [place] [address] Assigned PCP 06/11/18 10/14/18 Roro Garber, AUTOMATION SOFTWARE ENGINEER Clinic Foundry Finisher Primary Care - CC 07/26/18 [place] [address] [place] [address] Assigned PCP 10/15/18 12/08/19 Patricia Tobin MD PRIMARY ENT [address] [place], [place] [address] Assigned PCP 12/09/19 05/10/20 Karen Miller Personal Advocate & Liaison (PAL) Family Medicine 04/30/20 08/26/20 [place] [address] [place] [address] Assigned PCP 05/11/20 documented as of this encounter
--- OUTSIDE RECORDS SUMMARY | 2023-08-29 14:52 | XMS_ITS | Encounter Summary ---
Author Name Unknown Organization [facility] Address [address] [place] [address] Care Team Providers Care Mold Finisher Name Role Phone Leslie Silvestre MD Primary Care Provider [phone] Leslie Silvestre MD Unavailable [phone] Reason for Visit * Reason Onset Date Comments MyChart Communication 11/12/2020 Encounter Details Date Type Department Care Team (Latest Contact Info) Description 11/12/2020 MyC Medical Advice [address] [phone] [place] Silvestre [place] [id number] [place] [address] MyChart Communication Social History Tobacco Use [...] and Family Once a week 06/28/2019 Attends Yazdanism Services Never 06/28 Active Member of Clubs [...] Answer Date Recorded PHQ-2 Score 0 08/28/2020 [facility] of Occupat ional Health - [...] things needed for daily living? No 06/28/2019 [place] Depression Scale Answer Date Recorded [place] Depression Score 0 12/07/2018 Last EPDS Self Harm Result Not on file 12/07 Education Answer Date Recorded What is the highest level of school you have completed or the highest degree you have received? 12th grade 06/28/2019 Sex and Gender Information Value Date Recorded Sex Assigned at Female 06/28/2018 11:22 AM TRANSPORTATION SALES CONSULTANT Gender Identity Female 06/28/2018 11:22 AM TRANSPORTATION SALES CONSULTANT Sexual Orientation Not on file COVID-19 Exposure Response Date Recorded In the last month, have you been in contact with someone who was confirmed or suspected to have Coronavirus / COVID-19? No / Unsure 11/11/2020 10:21 AM CDT documented as of this encounter Miscellaneous Notes * Telephone Encounter - Evens Santana RN - 11/17/2020 12:49 PM CDT Responded to patient via [employer], will monitor response Evens Santana RN * Telephone Encounter - Leslie Silvestre MD - 11/17/2020 12:18 PM CDT Okay I did just see the ultrasound. I was out for vacation last week. They recommended repeat ultrasound in 6 weeks. Would she like to see PIECE DYEING MACHINE TENDER for why this keeps happening? * Telephone Encounter - Irwin Jett MD - 11/12/2020 1:41 PM CDT I really would like to leave this until Dr. Silvestre is back, is that possible? If not, then I recommend a virtual visit with one of us to discuss this in details. Irwin Jett MD [facility] [phone] * Telephone Encounter - Alondra Florentino RN - 11/12/2020 1:09 PM CDT See [employer] message below. Please advise. Alondra Florentino RN * Telephone Encounter - Titus Hidalgo RN - 11/12/2020 12:28 PM CDT [employer] message sent to patient for clarification. Per [...] repeat ultrasound in 6-8weeks. Awaiting reply. Titus Teran RN * Telephone Encounter - Harjeet Connolly [...] Total Score: 5 04/30/20 20 3:13 PM TRANSPORTATION SALES CONSULTANT documented as of this encounter Care Teams Mold Finisher Relationship Specialty Start [place] [address] [place] [address] PCP - General Family Practice 11/27/18 [place] [address] [place] [address] Assigned PCP 05/11/20 documented as of this encounter
[2023-08-29 23:36] LABS: GC DNA Amplified* NOT DETECTED (No Detected)
[2023-08-30 00:02] LABS: Chlamydia DNA Amplified* DETECTED (No Detected)
== END 2023-08-29 14:47 | disposition home or self-care (01) ==
PROVIDERS: PCP Physician Assistant Medical; Visit Provider Nurse Practitioner Family
DX: Z11.3 Encounter for screening for infections with a predominantly sexual mode of transmission (principal)
CPT/HCPCS: 86592; 86703; 87491; 87591

== ENCOUNTER 2023-10-07 14:23 | Outpatient (CLI) | payer BC, SELFPAY ==
--- OUTSIDE RECORDS SUMMARY | 2023-10-07 14:25 | XMS_ITS | Clinical Summary ---
Author Name Unknown Organization [facility] Address [place], [place] [address] Care Team Providers Care Hotel Server Name Role Phone Tiffany Frey PA-C Primary Care Provider Allergies No known active allergies Medications No known medications Active Problems Problem Noted Date Diagnosed Date Screening for cardiovascular condition SOB (shortness of breath) 06/23/2023 Social History Tobacco Use Types Packs/Day Years [...] Comments Blood Pressure 130/87 06/23/2023 12:58 PM PRODUCT REPRESENTATIVE Pulse 110 06/23/2023 12:58 PM PRODUCT REPRESENTATIVE Temperature 36.8 ??C (98.3 ??F) 07/01/2012 7:57 PM CS T Respiratory Rate 18 07/01/2012 7:57 PM PRODUCT REPRESENTATIVE Oxygen Saturation 98% 06/23/2023 12:58 PM PRODUCT REPRESENTATIVE Inhaled Oxygen Concentration - - Weight 52.9 kg (116 lb 9.6 oz) 06/23/2023 12:58 PM PRODUCT REPRESENTATIVE Height 160 cm (5' 3) 06/23/2023 12:58 PM PRODUCT REPRESENTATIVE Body Mass Index 20.65 06/23/2023 12:58 PM PRODUCT REPRESENTATIVE Plan of Treatment Health Maintenance Due Date Last Done Comments Tdap 2009 Depression screening for age 12+ 2010 HIV for age 15-65 2013 HPV series for age 9-26 (1 - 3-dose series) 2013 Hepatitis C screening for ag e 18-79 02/27/2016 Tetanus booster 2018 Pap test for age 21-65 2019 COVID-19 vaccine series ( season) 2023 Influenza for age 9-49 01/22/2024 BMI (ht and wt on same day) for age 18+ 06/23/2024 06/23/2023 Pneumococcal series for age 6-64 Aged Out No longer eligible based on patient's age to complete this topic Care Teams Hotel Server Relationship Specialty Start Date End Date Tiffany Frey PA-C [address] [place] [address] PCP - General Emergency Medicine 06/23/23
--- OUTSIDE RECORDS SUMMARY | 2023-10-07 14:25 | XMS_ITS | Referral Summary ---
Author Name Unknown Organization [facility] Address [address] [place] [address] Care Team Providers Care Balancing Machine Operator Name Role Phone Leslie Silvestre MD Primary Care Provider [phone] Leslie Silvestre MD Unavailable [phone] Encounters Date Type Department Care Team Description 08/03/2023 Travel from Last 3 Months Allergies Active Allergy Reactions Criticality Noted Date Comments No Known Drug Allergy 12/10/2002 Medications Medication Sig Dispensed Refills Start Date End Date Status norethindrone-ethiny l estradiol (06/11) 1-20 MG-MCG tabletIndications:En counter for other contraceptive management Take 1 tablet by mouth daily 84 tablet 3 03/18/2022 Active Additional Information Patient not taking.Reported on 01/31/2023 norethindrone-ethiny l estradiol (MICROGESTIN 1.530) 1.5-30 MG-MCG tabletIndications:En counter for other contraceptive [...] How often do you attend chur or quaker services? Never 07/05/2022 Do you belong to any clubs o r organizations such as taoist groups, unions, fraternal or athletic groups, or [...] Answer Date Recorded PHQ-2 Score 5 01/31/2023 [facility] Occupat ional Health - Occupational Stress [...] place to sleep or slept in a assisted (including now)? Patient refused 07/05/2022 [place]art Depression Scale Answer Date Recorded [place] Depression Score 0 12/07/2018 Last EPDS Self Harm Result Not on file 12/07 Education Answer Date Recorded What is the highest level of school you have completed or the highest degree you have received? 12th grade 06/28/2019 Sex and Gender Information Value Date Recorded Sex Assigned at Female 06/28/2018 11:22 AM MEDICAL LABORATORY TECHNICAL OFFICER Gender Identity Female 06/28/2018 11:22 AM MEDICAL LABORATORY TECHNICAL OFFICER Sexual Orientation Not on file Last Filed Vital Signs Vital Sign Reading Time Taken Comments Blood Pressure 125/80 06/26/2023 11:13 AM MEDICAL LABORATORY TECHNICAL OFFICER Pulse 82 06/26/2023 11:13 AM MEDICAL LABORATORY TECHNICAL OFFICER Temperature 36.7 ??C (98 ??F) 06/26/2023 11:13 AM MEDICAL LABORATORY TECHNICAL OFFICER Respiratory Rate 20 06/26/2023 11:13 AM MEDICAL LABORATORY TECHNICAL OFFICER Oxygen Saturation 100% 06/26/2023 11:13 AM MEDICAL LABORATORY TECHNICAL OFFICER Inhaled Oxygen Concentration - - Weight 54.4 kg (120 lb) 01/31/2023 9:58 AM CDT Height 160 cm (5' 3) 01/31/2023 9:58 AM CDT Body Mass Index 21.26 01/31/2023 9:58 AM CDT Plan of Treatment Not on file Procedures Procedure Name Priority Date/Time Associated Diagnosis Comments NEISSERIA GONORRHOEAE PCR STAT 02/22/2023 12:37 AM CDT GYNECOLOGIC CYTOLOGY Routine 03/17/2022 8:26 AM CDT Cervical cancer screening HIV ANTIGEN ANTIBODY COMBO Routine 10/29/2020 5:03 PM CDT Screen for STD (sexually transmitted disease) HEPATITIS C SCREEN REFLEX TO HCV RNA QUANT AND GENOTYPE Routine 04/30/2020 4:18 PM MEDICAL LABORATORY TECHNICAL OFFICER Need for hepatitis C screening test from Last 3 Months or Most Recently Relevant to Health Maintenance Results * Neisseria gonorrhoea PCR (02/22/2023 12:37 AM CDT) Neisseria gonorrhoeae Negative Negative 02/22/2023 11:33 AM CDT [facility] Comment:Negative for N. gono rrhoeae rRNA by dispatch officer mediated amplification. A negative result by dispatch officer mediated amplification does not preclude the presence of C. trachomatis infection because results are dependent on proper and adequate collection, absence of inhibitors and sufficient rRNA to be detected. Swab ENDOCERVICAL STRUCTURE / Unknown Non-blood Collection / Unknown 02/22/2023 12:37 AM CDT 02/22/2023 12:40 AM CDT Rickey Elizondo MD LAB - MICRO GENERA L ORDERABLES [facility] Inf. Diseases Diag. Lab [address] [facility], [address] [place] [address], [facility] [phone] * Pap Screen only - recommended age 21 - 24 years (03/17/2022 8:26 AM CDT) Interpretation Negative for Intraepithelial Lesion or Malignancy (NILM) 03/19/2022 2:52 PM CDT [facility] Comment Papanicolaou Test Limitations: Cervical cytology is a screening test with limited sensitivity, and regular screening is critical for cancer prevention. Pap tests are primarily effective for the diagnosis/prevent ion of squamous cell carcinoma, not adenocarcinoma or other cancers. 03/19/2022 2:52 PM CDT [facility] Specimen Adequacy Satisfactory for evaluation, endocervical/feldman sformation zone component present 03/19/2022 2:52 PM CDT [facility] Clinical Information none 03/19/2022 2:52 PM CDT [facility] Reflex Testing No 03/19/2022 2:52 PM CDT [facility] Previous Abnormal? Yes 03/19/2022 2:52 PM CDT [facility] Previous Abnormal Diagnosis ASCUS 03/19/2022 2:52 PM CDT [facility] Performing Labs The technical component of this testing was completed at [facility] 03/19/2022 2:52 PM CDT [facility] Brushing CERVIX UTERI STRUCTURE / Unknown 03/17/2022 8:26 AM CDT 03/17/2022 8:56 AM CDT Litzy VARNER - MICHELLE MILLER Performing Organization Address City/[facility]/ZIP Co de Phone Number [facility] Specialty Lab [address] [facility], [address] [id number], [facility] [phone] * HIV Antigen Antibody Combo (10/29/2020 5:03 PM CDT) HIV Antigen Antibody Combo Nonreactive NR^Nonrea ctive 10/30/2020 3:42 PM CDT [facility] Comment:HIV-1 p24 Ag & HIV-1 /HIV-2 Ab Not Detected Blood 10/29/2020 5:03 PM CDT 10/29/2020 5:04 PM CDT Leslie Silvestre MD LAB - BLOOD ORDERABL ES [facility] [address] [place] [address] * Hepatitis C Screen Reflex to HCV RNA Quant and Genotype (04/30/2020 4:18 PM MEDICAL LABORATORY TECHNICAL OFFICER) Hepatitis C Antibody Nonreactive NR^Nonre active 05/02/2020 10:31 AM MEDICAL LABORATORY TECHNICAL OFFICER [facility] Comment: Assay performance characteristics have not been established for newborns, infants, and children Blood specimen (specimen) 04/30/2020 4:18 PM MEDICAL LABORATORY TECHNICAL OFFICER 04/30/2020 4:19 PM MEDICAL LABORATORY TECHNICAL OFFICER Leslie Silvestre MD LAB - BLOOD ORDERABL ES [facility] [address] [place] [address] from Last 3 Months or Most Recently Relevant to Health Maintenance Care Teams Balancing Machine Operator Relationship Specialty [place] [address] [place] [address] PCP - General Family Practice 11/27/18 [place] [address] [place] [address] Assigned PCP 05/11/20
--- OUTSIDE RECORDS SUMMARY | 2023-10-07 14:25 | XMS_ITS | Clinical Summary ---
Author Name Unknown Organization [facility] Address [address] [place] [address] Care Team Providers Care Form Designer Name Role Phone Leslie Silvestre MD Primary Care Provider Leslie Silvestre MD Unavailable [phone] Allergies Active Allergy Reactions Criticality Noted [...] Description 08/03/2023 Travel from Last 3 Months Immunizations Name [...] How often do you attend chur or confucianism services? Never 07/05/2022 Do you belong to any clubs o r organizations such as denominational groups, unions, fraternal or athletic groups, or [...] Answer Date Recorded PHQ-2 Score 5 01/31/2023 [facility] Occupat ional Health - [...] place to sleep or slept in a penitentiary (including now)? Patient refused 07/05/2022 Freeman Depression Scale Answer Date Recorded Freeman Depression Score 0 12/07/2018 Last EPDS Self Harm Result Not on file 12/07 Education Answer Date Recorded What is the highest level of school you have completed or the highest degree you have received? 12th grade 06/28/2019 Sex and Gender Information Value Date Recorded Sex Assigned at Female 06/28/2018 11:22 AM VIRTUAL RECRUITER Gender Identity Female 06/28/2018 11:22 AM VIRTUAL RECRUITER Sexual Orientation Not on file Last Filed Vital Signs Vital Sign Reading Time Taken Comments Blood Pressure 125/80 06/26/2023 11:13 AM VIRTUAL RECRUITER Pulse 82 06/26/2023 11:13 AM VIRTUAL RECRUITER Temperature 36.7 ??C (98 ??F) 06/26/2023 11:13 AM VIRTUAL RECRUITER Respiratory Rate 20 06/26/2023 11:13 AM VIRTUAL RECRUITER Oxygen Saturation 100% 06/26/2023 11:13 AM VIRTUAL RECRUITER Inhaled Oxygen Concentration - - Weight 54.4 kg (120 lb) 01/31/2023 9:58 AM CDT Height 160 cm (5' 3) 01/31/2023 9:58 AM CDT Body Mass Index 21.26 01/31/2023 9:58 AM CDT Plan of Treatment Health Maintenance Due Date Last Done Comments COVID-19 Vaccine ( season) 2023 ANNUAL REVIEW OF HM ORDERS 07/05/2023 07/05/2022, YEARLY PREVENTIVE VISIT 07/05/2023 07/05/19 23, 04/30/2020, 06/28/2019, Additional history exists INFLUENZA VACCINE (Season Ended) 2024 05/31/2019, 04/17/2018, 02/20/2018, Additional history exists PHQ-9 02/03/2024 08/03/2023, 01/21, 04/30/2020, Additional history exists PAP 03/17/2025 03/17/2022, 01/2020, 06/28/2019 ADVANCE CARE PLANNING 07/05/2027 07/05/2022 [...] Completed 03/17/2022, 01/2020, 06/28/2019 CHLAMYDIA SCREENING Discontinued 04/29/2023, 02/22/2023, 02/22/2023, Additional history exists Pneumococcal Vaccine: Pediatrics (0 [...] QUANT AND GENOTYPE Routine 04/30/2020 4:18 PM VIRTUAL RECRUITER Need for hepatitis C screening test from Last 3 Months or Most Recently Relevant to Health Maintenance Results * Neisseria gonorrhoea PCR (02/22/2023 12:37 AM CDT) Neisseria gonorrhoeae Negative Negative 02/22/2023 11:33 AM CDT [facility] Comment:Negative for N. gono rrhoeae rRNA by general farm manager mediated amplification. A negative result by general farm manager mediated amplification does not preclude the presence of C. trachomatis infection because results are dependent on proper and adequate collection, absence of inhibitors and sufficient rRNA to be detected. Swab ENDOCERVICAL STRUCTURE / Unknown Non-blood Collection / Unknown 02/22/2023 12:37 AM CDT 02/22/2023 12:40 AM CDT Rickey Elizondo MD LAB - MICRO GENERA L ORDERABLES [facility] Inf. Diseases Diag. Lab [address] [facility], [address] [place] [address], [facility] [phone] * Pap Screen only - recommended age [...] component of this testing was completed at [facility] 03/19/2022 2:52 PM CDT [facility] Brushing CERVIX UTERI STRUCTURE / Unknown 03/17/2022 8:26 AM CDT 03/17/2022 8:56 AM CDT Litzy MILLER [facility] Specialty Lab [address] [facility], [address] [address], [facility] [phone] * HIV Antigen Antibody Combo (10/29/2020 5:03 PM CDT) HIV Antigen Antibody Combo Nonreactive NR^Nonrea ctive 10/30/2020 3:42 PM CDT [facility] Comment:HIV-1 p24 Ag & HIV-1 /HIV-2 Ab Not Detected Blood 10/29/2020 5:03 PM CDT 10/29/2020 5:04 PM CDT Leslie Silvestre MD LAB - BLOOD ORDERABL ES [facility] [address] [place] [address] * Hepatitis C Screen Reflex to HCV RNA Quant and Genotype (04/30/2020 4:18 PM VIRTUAL RECRUITER) Hepatitis C Antibody Nonreactive NR^Nonre active 05/02/2020 10:31 AM VIRTUAL RECRUITER [facility] Comment: Assay performance characteristics have not been established for newborns, infants, and children Blood specimen (specimen) 04/30/2020 4:18 PM VIRTUAL RECRUITER 04/30/2020 4:19 PM VIRTUAL RECRUITER Leslie Silvestre MD LAB - BLOOD ORDERABL ES [facility] [address] [place] [address] from Last 3 Months or Most Recently Relevant to Health Maintenance Care Teams Form Designer Relationship Specialty [place] [address] [place] [address] PCP - General Family Practice 11/27/18 [place] [address] [place] [address] Assigned PCP 05/11/20
--- OUTSIDE RECORDS SUMMARY | 2023-10-07 14:26 | XMS_ITS | Encounter Summary ---
Author Name Unknown Organization [facility] Address [address] [place] [address] Care Team Providers Care Energy And Sustainability Manager Name Role Phone [facility] Primary Care Provide r No Ref-Primary, Physician Primary Care Provider Natasha Horta APRN CENA Unavailable + Patricia Tobin MD Unavailable + [facility] [place][Note 2] Primary Care Provider Patricia Tobin MD Unavailable + Roro Garber SHAFTING WORKER Unavailable [phone] No Ref-Primary, Physician Primary Care Provider Leslie Silvestre MD Unavailable [phone] Leslie Silvestre MD Primary Care Provider [phone] Patricia Tobin MD Unavailable + Karen Miller Unavailable Unavailable OLeslie Espinosa MD Unavailable [phone] Reason for Visit * Reason Onset Date Comments Medication Question 06/02/2017 Lexapro, Santiago rax Encounter Details Date Type Department Care Team (Late st Contact Info) Description 06/02/2017 MyC Medical Advice [facility], [address] [place] [phone] Gonzalez Catalan PA-C [address] [place], [place] [id number] Medication Question (Lexapro, Atarax) Social History Tobacco Use Types Packs/Day Years Used Date Smoking Tobacco: Never Smokeless Tobacco: Never Alcohol Use Standard Drinks/Week Comments No 0 (1 standard drink = 0.6 oz pur e alcohol) Sex and Gender Information Value Date Recorded Sex Assigned at Female 06/28/2018 11:22 AM SALES DEVELOPER Gender Identity Female 06/28/2018 11:22 AM SALES DEVELOPER Sexual Orientation Not on file documented as of this encounter Plan of Treatment Not on file documented as of this encounter Visit Diagnoses Not on filedocumented in this encounter Care Teams Energy And Sustainability Manager Relationship Specialty Start Date End Date [facility] [place], [place] [id number] PCP - General 05/28/17 03/29/18 No Ref-Primary, Physician PCP - General 03/30/18 07/02/18 Natasha Horta APRN CENA [address] [place] [address] PCP - Assigned PCP 02/12/18 05/13/18 Patricia Tobin MD PRIMARY ENT [address] [place], [place] [address] PCP - Assigned PCP 05/14/18 07/25/[address] [address] PCP - General Internal Medicine 07/03/18 09/28/18 No Ref-Primary, Physician PCP - General 09/29/18 11/26/18 [place] [address] [facility] [address] PCP - General Family Practice 11/27/18 Patricia Tobin MD PRIMARY ENT [address] [facility] [address] [place] [address] Assigned PCP 06/11/18 10/14/18 Roro Garber, [facility] Senior Safety Management Consultant Primary Care - CC 07/26/18 [place] [address] [facility] [address] Assigned PCP 10/15/18 12/08/19 Patricia Tobin MD PRIMARY ENT [address] [facility] [address] [place] [address] Assigned PCP 12/09/19 05/10/20 Karen Miller Personal Advocate & Liaison (PAL) Family Medicine 04/30/20 08/26/20 [place] [address] [facility] [address] Assigned PCP 05/11/20 documented as of this encounter
--- OUTSIDE RECORDS SUMMARY | 2023-10-07 14:26 | XMS_ITS | Encounter Summary ---
Author Name Unknown Organization [facility] Address [address] [place] [address]. [place] [address] Care Team Providers Care Stenocaptioner Name Role Phone Leslie Silvestre MD Unavailable [phone] Leslie Silvestre MD Primary Care Provider [phone] Patricia Tobin MD Unavailable + Karen Miller Unavailable Unavailable OLeslie Espinosa MD Unavailable [phone] Reason for Visit * Reason Onset Date Comments Patient Request 12/11/2018 Encounter Details Date Type Department Care Team (Late st Contact Info) Description 12/11/2018 MyC Medical Advice [address] [phone] Leslie Silvestre MD [address] [place] [phone] Patient Request Social History Tobacco Use Types Packs/Day Years Used Date Smoking Tobacco: Never Smokeless Tobacco: Never Alcohol Use Standard Drinks/Week Comments No 0 (1 standard drink = 0.6 oz pur e alcohol) PHQ-2 Answer Date Recorded PHQ-2 Score 0 11/20/2018 Purmela Depression Scale Answer Date Recorded [place]mela Depression Score 0 12/07/2018 Last EPDS Self Harm Result Not on file 12/07 Sex and Gender Information Value Date Recorded Sex Assigned at Female 06/28/2018 11:22 AM REGISTERED PUBLIC SURVEYOR Gender Identity Female 06/28/2018 11:22 AM REGISTERED PUBLIC SURVEYOR Sexual Orientation Not on file documented as of this encounter Miscellaneous Notes * Telephone Encounter - Melanie Guevara RN - 12/12/2018 7:09 AM CDT Please see my chart message and response Thank you Melanie Guevara, Registered Nurse [facility] documented in this encounter Plan of Treatment Not on file documented as of this encounter Visit Diagnoses Not on filedocumented in this encounter Additional Health Concerns Assessment Noted Time PHQ-9 Depression Total Score: 12 024 7:05 AM CDT documented as of this encounter Care Teams Stenocaptioner Relationship Specialty [place] [address] [place] [address] PCP - General Family Practice 11/27/18 [place] [address] [place] [address] Assigned PCP 10/15/18 12/08/19 Patricia Tobin MD PRIMARY ENT [address] [place] [address] Assigned PCP 12/09/19 05/10/20 Karen Miller Personal Advocate & Liaison (PAL) Family Medicine 04/30/20 08/26/20 [place] [address] [place] [address] Assigned PCP 05/11/20 documented as of this encounter
--- OUTSIDE RECORDS SUMMARY | 2023-10-07 14:26 | XMS_ITS | Encounter Summary ---
Author Name Unknown Organization [facility] Address [address] [place] [address] Care Team Providers Care Cab Starter Name Role Phone Leslie Silvestre MD Primary Care Provider [phone] Leslie Silvestre MD Unavailable [phone] Reason for Visit * Reason Onset Date Comments MyChart Communication 11/12/2020 Encounter Details Date Type Department Care Team (Latest Contact Info) Description 11/12/2020 MyC Medical Advice [address] [phone] [place] [id number] [place] [address] MyChart Communication Social History Tobacco Use [...] Answer Date Recorded PHQ-2 Score 0 08/28/2020 [facility] Occupat ional Health - Occupational [...] things needed for daily living? No 06/28/2019 [place] Depression Scale Answer Date Recorded [place] Depression Score 0 12/07/2018 Last EPDS Self Harm Result Not on file 12/07 Education Answer Date Recorded What is the highest level of school you have completed or the highest degree you have received? 12th grade 06/28/2019 Sex and Gender Information Value Date Recorded Sex Assigned at Female 06/28/2018 11:22 AM VINYL DIPPER Gender Identity Female 06/28/2018 11:22 AM VINYL DIPPER Sexual Orientation Not on file COVID-19 Exposure Response Date Recorded In the last month, have you been in contact with someone who was confirmed or suspected to have Coronavirus / COVID-19? No / Unsure 11/11/2020 10:21 AM CDT documented as of this encounter Miscellaneous Notes * Telephone Encounter - Evens Santana RN - 11/17/2020 12:49 PM CDT Responded to patient via [employer], will monitor response Evens Santana RN * Telephone Encounter - Leslie Silvestre MD - 11/17/2020 12:18 PM CDT Okay I did just see the ultrasound. I was out for vacation last week. They recommended repeat ultrasound in 6 weeks. Would she like to see ARMATURE AND ROTOR WINDER for why this keeps happening? * Telephone Encounter - Irwin Jett MD - 11/12/2020 1:41 PM CDT I really would like to leave this until Dr. Silvestre is back, is that possible? If not, then I recommend a virtual visit with one of us to discuss this in details. Irwin Jett MD [facility] [phone] * Telephone Encounter - Alondra Florentino RN - 11/12/2020 1:09 PM CDT See [employer] message below. Please advise. Alondra Florentino RN * Telephone Encounter - Titus Hidalgo RN - 11/12/2020 12:28 PM CDT Retrieve message sent to patient for clarification. Per [...] Total Score: 5 04/30/20 20 3:13 PM VINYL DIPPER documented as of this encounter Care Teams Cab Starter Relationship Specialty Start [place] [address] [place] [address] PCP - General Family Practice 11/27/18 [place] [address] [place] [address] Assigned PCP 05/11/20 documented as of this encounter
--- OUTSIDE RECORDS SUMMARY | 2023-10-07 14:26 | XMS_ITS | Encounter Summary ---
Author Name Unknown Organization [place] Address [address] [place] [address] Care Team Providers Care Principal Statistical Programmer Name Role Phone Leslie Silvestre MD Primary Care Provider [phone] Karen Miller Unavailable Unavailable Leslie Silvestre MD Unavailable [phone] Reason for Visit * Reason Onset Date Comments Patient Request 05/14/2020 Encounter Details Date Type Department Care Team (Late st Contact Info) Description 05/14/2020 MyC Medical Advice [address] [address] [place] Silvestre [place] [id number] [place] [address] Patient Request Social History Tobacco Use [...] and Family Once a week 06/28/2019 Attends [employer] Services Never 06/28 Active Member of Clubs [...] Recorded PHQ-2 Score 2 04/30/2020 [facility] - [...] things needed for daily living? No 06/28/2019 [place] Depression Scale Answer Date Recorded [place] Depression Score 0 12/07/2018 Last EPDS Self Harm Result Not on file 12/07 Education Answer Date Recorded What is the highest level of school you have completed or the highest degree you have received? 12th grade 06/28/2019 Sex and Gender Information Value Date Recorded Sex Assigned at Female 06/28/2018 11:22 AM CHEMICAL LAB TECHNICIAN Gender Identity Female 06/28/2018 11:22 AM CHEMICAL LAB TECHNICIAN Sexual Orientation Not on file COVID-19 Exposure Response Date Recorded In the last month, have you been in contact with someone who was confirmed or suspected to have Coronavirus / COVID-19? No / Unsure 05/13/2020 11:14 AM CHEMICAL LAB TECHNICIAN documented as of this encounter Miscellaneous Notes * Telephone Encounter - Alondra Florentino RN - 05/15/2020 7:[address] Silvestre- see mychart message below. Please advise. Alondra Florentino RN ICAL LAB TECHNICIAN documented in this encounter Plan of Treatment Not on file documented as of this encounter Visit Diagnoses Not on filedocumented in this encounter Additional Health Concerns Assessment Noted Time PHQ-9 Depression Total Score: 5 04/30/20 3:13 PM CHEMICAL LAB TECHNICIAN documented as of this encounter Care Teams Principal Statistical Programmer Relationship Specialty [place] [address] [place], [place] [id number] PCP - General Family Practice 11/27/18 Karen Miller Personal Advocate & Liaison (PAL) Family Medicine 04/30/20 08/26/20 [place] [address] [place] [address] Assigned PCP 05/11/20 documented as of this encounter
--- OUTSIDE RECORDS SUMMARY | 2023-10-07 14:26 | XMS_ITS | Encounter Summary ---
Author Name Unknown Organization [place] Address [address] [place] [address] Care Team Providers Care Information Specialist Name Role Phone Patricia Tobin MD Unavailable + [facility] Primary Care Provider Patricia Tobin MD Unavailable + Roro Garber TIMBER BUYER Unavailable [phone] No Ref-Primary, Physician Primary Care Provider Leslie Silvestre MD Unavailable [phone] Leslie Silvestre MD Primary Care Provider [phone] Patricia Tobin MD Unavailable + Karen Miller Unavailable Unavailable OLeslie Espinosa MD Unavailable [phone] Encounter Details Date Type Department Care Team (Late st Contact Info) Description 07/16/2018 MyC Medical Advice [facility] Women[facility] [address] [place] [phone] Tarah Fields CNM NO INFO AVAILABLE 05/13/2022 Social History Tobacco Use Types Packs/Day Years Used Date Smoking Tobacco: Never Smokeless Tobacco: Never Alcohol Use Standard Drinks/Week Comments No 0 (1 standard drink = 0.6 oz pur e alcohol) PHQ-2 Answer Date Recorded PHQ-2 Score 4 07/18/2018 Comments Yes Sex and Gender Information Value Date Recorded Sex Assigned at Female 06/28/2018 11:22 AM PRIMARY MILL ROLLER Gender Identity Female 06/28/2018 11:22 AM PRIMARY MILL ROLLER Sexual Orientation Not on file documented as of this encounter Miscellaneous Notes * Telephone Encounter - Sridevi Valdez RN - 07/17/2018 8:09 AM CST See other mychart message. Sridevi Wayne R.N. [facility] ARY MILL ROLLER documented in this encounter Plan of Treatment Not on file documented as of this encounter Visit Diagnoses Not on filedocumented in this encounter Additional Health Concerns Assessment Noted Time PHQ-9 Depression Total Score: 12 024 7:05 AM CDT documented as of this encounter Care Teams Information Specialist Relationship Specialty Start Date End Date Patricia Tobin MD PRIMARY ENT [address] [facility] [address] [place], [place] [address] PCP - Assigned PCP 05/14/18 07/25/[address] [id number] PCP - General Internal Medicine 07/03/18 09/28/18 No Ref-Primary, Physician PCP - General 09/29/18 11/26/18 [place] [address] [place] [address] PCP - General Family Practice 11/27/18 Patricia Tobin MD PRIMARY ENT [address] [facility] [address] [place] [address] Assigned PCP 06/11/18 10/14/18 Roro Garber, [facility] Digital Media Sales Consultant Primary Care - CC 07/26/18 [place] [address] [place], [place] [id number] Assigned PCP 10/15/18 12/08/19 Patricia Tobin MD PRIMARY ENT [address] [place] [address] Assigned PCP 12/09/19 05/10/20 Karen Miller Personal Advocate & Liaison (PAL) Family Medicine 04/30/20 08/26/20 [place] [address] [place] [address] Assigned PCP 05/11/20 documented as of this encounter
--- OUTSIDE RECORDS SUMMARY | 2023-10-07 14:26 | XMS_ITS | Encounter Summary ---
Author Name Unknown Organization [place] Address [address] [place] [address]. [place] [address] Care Team Providers Care Supervisor Tile And Mottle Name Role Phone [facility] Primary Care Provider Patricia Tobin MD Unavailable + No Ref-Primary, Physician Primary Care Provider Leslie Silvestre MD Unavailable Leslie Silvestre MD Primary Care Provider Patricia Tobin MD Unavailable + Karen Miller Unavailable Unavailable Leslie Silvestre MD Unavailable [phone] Reason for Visit * Reason Onset Date Comments MyChart Communication 09/16/2018 arm discom fort Encounter Details Date Type Department Care Team (Latest Contact Info) Description 09/16/2018 MyC Medical Advice [facility] [address] [place] [address] [place] [address] [place] [address] MyChart Communication (arm discomfort) Social History Tobacco Use Types Packs/Day Years Used Date Smoking Tobacco: Never Smokeless Tobacco: Never Alcohol Use Standard Drinks/Week Comments No 0 (1 standard drink = 0.6 oz pur e alcohol) PHQ-2 Answer Date Recorded PHQ-2 Score 4 09/18/2018 Comments Yes Sex and Gender Information Value Date Recorded Sex Assigned at Female 06/28/2018 11:22 AM CALL CENTER TEAM LEADER Gender Identity Female 06/28/2018 11:22 AM CALL CENTER TEAM LEADER Sexual Orientation Not on file documented as of this encounter Plan of Treatment Not on file documented as of this encounter Visit Diagnoses Not on filedocumented in this encounter Additional Health Concerns Assessment Noted Time PHQ-9 Depression Total Score: 12 024 7:05 AM CDT documented as of this encounter Care Teams Supervisor Tile And Mottle Relationship Specialty Start Date End Date [facility] - [address] [address] PCP - General Internal Medicine 07/03/18 09/28/18 No Ref-Primary, Physician PCP - General 09/29/18 11/26/18 [place] [address] [place], [place] [phone] PCP - General Family Practice 11/27/18 Patricia Tobin MD PRIMARY ENT [address] [place] [address] Assigned PCP 06/11/18 10/14/18 [place] [address] [place], [place] [id number] Assigned PCP 10/15/18 12/08/19 Patricia Tobin MD PRIMARY ENT [address] [place] [address] Assigned PCP 12/09/19 05/10/20 Karen Miller Personal Advocate & Liaison (PAL) Family Medicine 04/30/20 08/26/20 [place] [address] [place] [address] Assigned PCP 05/11/20 documented as of this encounter
--- OUTSIDE RECORDS SUMMARY | 2023-10-07 14:26 | XMS_ITS | Encounter Summary ---
Author Name Unknown Organization [place] Address [address] [place] [address] Care Team Providers Care Circular Knife Machine Cutter Name Role Phone Leslie Silvestre MD Primary Care Provider [phone] Katja Catalan MD Primary Care Provider [facility] Primary Care Provide r No Ref-Primary, Physician Primary Care Provider Natasha Horta APRN PRINCIPAL TECHNICAL ARCHITECT Unavailable + Patricia Tobin MD Unavailable + [facility] Primary Care Provider Patricia Tobin MD Unavailable + Roro Garber CORPORATE COORDINATOR Unavailable [phone] No Ref-Primary, Physician Primary Care Provider Leslie Silvestre MD Unavailable [phone] Leslie Silvestre MD Primary Care Provider [phone] Patricia Tobin MD Unavailable + Karen Miller Unavailable Unavailable Leslie Silvestre MD Unavailable [phone] Encounter Details Date Type Department Care Team (Late st Contact Info) Description 03/30/2003 [facility] [address] [place] [phone] [place] [address] [place] [address] ER ENCOUNTER (Primary Dx) Social History Tobacco [...] Sex Assigned at Female 06/28/2018 11:22 AM TRIMMING INSPECTOR Gender Identity Female 06/28/2018 11:22 AM TRIMMING INSPECTOR Sexual Orientation Not on file documented as of this encounter Progress Notes * 03/30/2003 11:59 PM [id number] 00:00 Emergency Department Encounter-[facility] DINA THORNTON () [Entered: [facility] tion([facility])] : 98 CHIEF COMPLAINT: Sore throat. [...] Stable. [id number] DINA THORNTON MD MT: Document: [id number] [place], [place] Name: JACOB ROBLERO Electronically filed by Sarah Liriano 04/01 12:41 PM documented in this encounter Plan of Treatment Not on file documented as of this encounter Visit Diagnoses Diagnosis ER ENCOUNTER- Primary documented in this encounter Care Teams Circular Knife Machine Cutter Relationship Specialty Start [place] [address] [place] [address] PCP - General 07/22/03 12/17/13 [place] [address] [place] [address] PCP - General Family Practice 12/18/13 05/27/17 [facility] [address] [place], [place] [id number] PCP - General 05/28/17 03/29/18 No Ref-Primary, Physician PCP - General 03/30/18 07/02/18 Natasha Horta APRN PRINCIPAL TECHNICAL ARCHITECT [address] [facility] [place] [address] PCP - Assigned PCP 02/12/18 05/13/18 Patricia Tobin MD PRIMARY ENT [address] [facility] [address] [place] [address] PCP - Assigned PCP 05/14/18 07/25/[address] [id number] PCP - General Internal Medicine 07/03/18 09/28/18 No Ref-Primary, Physician PCP - General 09/29/18 11/26/18 [place] [address] [place] [address] PCP - General Family Practice 11/27/18 Patricia Tobin MD PRIMARY ENT [id number] [place] [address] [address] [place] [address] Assigned PCP 06/11/18 10/14/18 Roro Garber, [facility] Marble Helper Primary Care - CC 07/26/18 [place] [address] [place] [address] Assigned PCP 10/15/18 12/08/19 Patricia Tobin MD PRIMARY ENT [address] [facility] [address] [place] [address] Assigned PCP 12/09/19 05/10/20 Karen Miller Personal Advocate & Liaison (PAL) Family Medicine 04/30/20 08/26/20 [place] [address] [place] [address] Assigned PCP 05/11/20 documented as of this encounter
--- OUTSIDE RECORDS SUMMARY | 2023-10-07 14:26 | XMS_ITS | Encounter Summary ---
Author Name Unknown Organization [place] Address [address] [place] [address] Care Team Providers Care Pigs Feet Finisher Name Role Phone Leslie Silvestre MD Unavailable [phone] Leslie Silvestre MD Primary Care Provider [phone] Patricia Tobin MD Unavailable + Karen Miller Unavailable Unavailable OLeslie Espinosa MD Unavailable Encounter Details Date Type Department Care Team (Late st Contact Info) Description 05/25/2019 MyC Medical Advice [address] [address] Sydni Davalos, STEWARD/STEWARDESS LOUNGE Social History Tobacco Use Types Packs/Day Years Used Date Smoking Tobacco: Never Smokeless Tobacco: Never Alcohol Use Standard Drinks/Week Comments No 0 (1 standard drink = 0.6 oz pur e alcohol) PHQ-2 Answer Date Recorded PHQ-2 Score 0 11/20/2018 [place] Depression Scale Answer Date Recorded [place] Depression Score 0 12/07/2018 Last EPDS Self Harm Result Not on file 12/07 Sex and Gender Information Value Date Recorded Sex Assigned at Female 06/28/2018 11:22 AM SHIPPING SUPPORT CLERK Gender Identity Female 06/28/2018 11:22 AM SHIPPING SUPPORT CLERK Sexual Orientation Not on file documented as of this encounter Plan of Treatment Not on file documented as of this encounter Visit Diagnoses Not on filedocumented in this encounter Additional Health Concerns Assessment Noted Time PHQ-9 Depression Total Score: 12 024 7:05 AM CDT documented as of this encounter Care Teams Pigs Feet Finisher Relationship Specialty [place] [address] [place] [address] PCP - General Family Practice 11/27/18 [place] [address] [place] [address] Assigned PCP 10/15/18 12/08/19 Patricia Tobin MD PRIMARY ENT [address] [place], [place] [address] Assigned PCP 12/09/19 05/10/20 Karen Miller Personal Advocate & Liaison (PAL) Family Medicine 04/30/20 08/26/20 [place] [address] [place] [address] Assigned PCP 05/11/20 documented as of this encounter
--- OUTSIDE RECORDS SUMMARY | 2023-10-07 14:26 | XMS_ITS | Encounter Summary ---
Author Name Unknown Organization [place] Address [address] [place] [address] Care Team Providers Care Careers Adviser Name Role Phone Leslie Silvestre MD Primary Care Provider [phone] Leslie Silvestre MD Unavailable [phone] Encounter Details Date Type Department Care Team (Late st Contact Info) Description 04/20/2021 MyC Medical Advice [address] [place] [address] Liz Stern RN Social History Tobacco [...] Answer Date Recorded PHQ-2 Score 0 08/28/2020 [facility] [place] of Occupat ional Health - Occupational Stress [...] things needed for daily living? No 06/28/2019 [place] Depression Scale Answer Date Recorded [place] Depression Score 0 12/07/2018 Last EPDS Self Harm Result Not on file 12/07 Education Answer Date Recorded What is the highest level of school you have completed or the highest degree you have received? 12th grade 06/28/2019 Sex and Gender Information Value Date Recorded Sex Assigned at Female 06/28/2018 11:22 AM PILLOW CLEANER Gender Identity Female 06/28/2018 11:22 AM PILLOW CLEANER Sexual Orientation Not on file COVID-19 Exposure Response Date Recorded In the last month, have you been in contact with someone who was confirmed or suspected to have Coronavirus / COVID-19? No / Unsure 04/23/2021 11:47 AM PILLOW CLEANER documented as of this encounter Plan of Treatment Not on file documented as of this encounter Visit Diagnoses Not on filedocumented in this encounter Additional Health Concerns Assessment Noted Time PHQ-9 Depression Total Score: 5 04/30/20 20 3:13 PM PILLOW CLEANER documented as of this encounter Care Teams Careers Adviser Relationship Specialty [place] [address] [place] [address] PCP - General Family Practice 11/27/18 [place] [address] [place] [address] Assigned PCP 05/11/20 documented as of this encounter
--- OUTSIDE RECORDS SUMMARY | 2023-10-07 14:26 | XMS_ITS | Encounter Summary ---
Author Name Unknown Organization [place] Address [address] [place] [address]. [place] [address] Care Team Providers Care General Maintenance Technician Name Role Phone Leslie Silvestre MD Primary Care Provider [phone] Leslie Silvestre MD Unavailable [phone] Encounter Details Date Type Department Care Team (Late st Contact Info) Description 02/04/2022 MyC Medical Advice [address] [address] Leslie Silvestre MD [address] [place] [address] Social History Tobacco Use Types Packs/Day [...] and Family Once a week 06/28/2019 Attends Anabaptism Services Never 06/28 Active Member of Clubs [...] things needed for daily living? No 06/28/2019 [place] Depression Scale Answer Date Recorded [place] Depression Score 0 12/07/2018 Last EPDS Self Harm Result Not on file 12/07 Education Answer Date Recorded What is the highest level of school you have completed or the highest degree you have received? 12th grade 06/28/2019 Sex and Gender Information Value Date Recorded Sex Assigned at Female 06/28/2018 11:22 AM CRISIS NURSE Gender Identity Female 06/28/2018 11:22 AM CRISIS NURSE Sexual Orientation Not on file documented as of this encounter Miscellaneous Notes * Telephone Encounter - Veronika Gaines - 02/08/2022 4:00 PM CDT Form is completed and placed in the [employer] station , will wait for patient to call back to see if she would like to pick it up or wants us to fax form . Called patient LVM. Veronika Gaines Eligibility Manager * Telephone Encounter - Leslie Silvestre MD [...] Total Score: 5 04/30/20 20 3:13 PM CRISIS NURSE documented as of this encounter Care Teams General Maintenance Technician Relationship Specialty [place] [address] [place] [address] PCP - General Family Practice 11/27/18 [place] [address] [place] [address] Assigned PCP 05/11/20 documented as of this encounter
--- OUTSIDE RECORDS SUMMARY | 2023-10-07 14:26 | XMS_ITS | Encounter Summary ---
Author Name Unknown Organization [place] Address [address] [place] [address] Care Team Providers Care Sales Support Engineer Name Role Phone [facility] Primary Care Provider Patricia Tobin MD Unavailable + No Ref-Primary, Physician Primary Care Provider Leslie Silvestre MD Unavailable [phone] Leslie Silvestre MD Primary Care Provider Patricia Tobin MD Unavailable + Karen Miller Unavailable Unavailable Leslie Silvestre MD Unavailable [phone] Reason for Visit * Reason Onset Date Comments MyChart Communication 09/18/2018 update 08/22 12/08 MyChart message left arm discomfort Encounter Details Date Type Department Care Team (Latest Contact Info) Description 09/18/2018 MyC Medical Advice [facility] [address] [place] [address] [place] [address] [place] [address] MyChart Communication (update 09/16/18 MyCh... Social History Tobacco Use Types Packs/Day Years Used Date Smoking Tobacco: Never Smokeless Tobacco: Never Alcohol Use Standard Drinks/Week Comments No 0 (1 standard drink = 0.6 oz pur e alcohol) PHQ-2 Answer Date Recorded PHQ-2 Score 4 09/18/2018 Comments Yes Sex and Gender Information Value Date Recorded Sex Assigned at Female 06/28/2018 11:22 AM WAREHOUSE ASSEMBLY WORKER Gender Identity Female 06/28/2018 11:22 AM WAREHOUSE ASSEMBLY WORKER Sexual Orientation Not on file documented as of this encounter Plan of Treatment Not on file documented as of this encounter Visit Diagnoses Not on filedocumented in this encounter Additional Health Concerns Assessment Noted Time PHQ-9 Depression Total Score: 12 024 7:05 AM CDT documented as of this encounter Care Teams Sales Support Engineer Relationship Specialty Start Date End Date Clinic - [address] [address] PCP - General Internal Medicine 07/03/18 09/28/18 No Ref-Primary, Physician PCP - General 09/29/18 11/26/18 [place] [address] [place], [place] [id number] PCP - General Family Practice 11/27/18 Patricia Tobin MD PRIMARY ENT [address] [facility] [address] [place] [address] Assigned PCP 06/11/18 10/14/18 [place] [address] [place], [place] [address] Assigned PCP 10/15/18 12/08/19 Patricia Tobin MD PRIMARY ENT [address] [facility] [address] [place] [address] Assigned PCP 12/09/19 05/10/20 Karen Miller Personal Advocate & Liaison (PAL) Family Medicine 04/30/20 08/26/20 [place] [address] [place] [address] Assigned PCP 05/11/20 documented as of this encounter
--- OUTSIDE RECORDS SUMMARY | 2023-10-07 14:26 | XMS_ITS | Encounter Summary ---
Author Name Unknown Organization [place] Address [address] [place] [address] Care Team Providers Care Driller Machine Name Role Phone Patricia Tobin MD Unavailable + [facility] Primary Care Provider Patricia Tobin MD Unavailable + Rroo Garber PRECISION LENS POLISHER Unavailable [phone] No Ref-Primary, Physician Primary Care Provider Leslie Silvestre MD Unavailable [phone] Leslie Silvestre MD Primary Care Provider [phone] Patricia Tobin MD Unavailable + Karen Miller Unavailable Unavailable OLeslie Espinosa MD Unavailable [phone] Reason for Visit * Reason Onset Date Comments Care 07/15/2018 [place] Encounter Details Date Type Department Care Team (Late st Contact Info) Description 07/15/2018 MyC Medical Advice [facility] Women's [address] [place] [phone] Tarah Fields CNM NO INFO AVAILABLE 05/13/2022 [...] Sex Assigned at Female 06/28/2018 11:22 AM INSURANCE DEFENSE ATTORNEY Gender Identity Female 06/28/2018 11:22 AM INSURANCE DEFENSE ATTORNEY Sexual Orientation Not on file documented as of this encounter Plan of Treatment Not on file documented as of this encounter Visit Diagnoses Not on filedocumented in this encounter Additional Health Concerns Assessment Noted Time PHQ-9 Depression Total Score: 12 024 7:05 AM CDT documented as of this encounter Care Teams Driller Machine Relationship Specialty Start Date End Date Patricia Tobin MD PRIMARY ENT [address] [facility] [address] [place] [address] PCP - Assigned PCP 05/14/18 07/25/[address] [address] PCP - General Internal Medicine 07/03/18 09/28/18 No Ref-Primary, Physician PCP - General 09/29/18 11/26/18 [place] [address] [place] [address] PCP - General Family Practice 11/27/18 Patricia Tobin MD PRIMARY ENT [address] [facility] [address] [place] [address] Assigned PCP 06/11/18 10/14/18 Roro Garber, PRECISION LENS POLISHER Clinic Elementary Teacher Primary Care - CC 07/26/18 [place] [address] [place] [address] Assigned PCP 10/15/18 12/08/19 Patricia Tobin MD PRIMARY ENT [address] [place] [address] Assigned PCP 12/09/19 05/10/20 Karen Miller Personal Advocate & Liaison (PAL) Family Medicine 04/30/20 08/26/20 [place] [address] [place] [address] Assigned PCP 05/11/20 documented as of this encounter
--- OUTSIDE RECORDS SUMMARY | 2023-10-07 14:26 | XMS_ITS | Encounter Summary ---
Author Name Unknown Organization [place] Address [address] [place] [address]. [place] [address] Care Team Providers Care Curtain Feller Blindstitch Name Role Phone [facility] Primary Care Provider Patricia Tobin MD Unavailable + No Ref-Primary, Physician Primary Care Provider Leslie Silvestre MD Unavailable [phone] Leslie Silvestre MD Primary Care Provider [phone] Patricia Tobin MD Unavailable + Karen Miller Unavailable Unavailable OLeslie Espinosa MD Unavailable [phone] Reason for Visit * Reason Onset Date Comments MyChart Communication 09/18/2018 left arm i ssue Encounter Details Date Type Department Care Team (Latest Contact Info) Description 09/18/2018 MyC Medical Advice [facility] [address] [place] [phone] [place] [address] [place] [address] MyChart Communication (left arm issue) Social History Tobacco Use Types Packs/Day Years Used Date Smoking Tobacco: Never Smokeless Tobacco: Never Alcohol Use Standard Drinks/Week Comments No 0 (1 standard drink = 0.6 oz pur e alcohol) PHQ-2 Answer Date Recorded PHQ-2 Score 4 09/18/2018 Comments Yes Sex and Gender Information Value Date Recorded Sex Assigned at Female 06/28/2018 11:22 AM ASSEMBLY AND PACKING SUPERVISOR Gender Identity Female 06/28/2018 11:22 AM ASSEMBLY AND PACKING SUPERVISOR Sexual Orientation Not on file documented as of this encounter Plan of Treatment Not on file documented as of this encounter Visit Diagnoses Not on filedocumented in this encounter Additional Health Concerns Assessment Noted Time PHQ-9 Depression Total Score: 12 024 7:05 AM CDT documented as of this encounter Care Teams Curtain Feller Blindstitch Relationship Specialty Start Date End Date [facility] - [address] [id number] PCP - General Internal Medicine 07/03/18 09/28/18 No Ref-Primary, Physician PCP - General 09/29/18 11/26/18 [place] [address] [place], [place] [id number] PCP - General Family Practice 11/27/18 Patricia Tobin MD PRIMARY ENT [address] [place] [address] Assigned PCP 06/11/18 10/14/18 [place] [address] [place], [place] [id number] Assigned PCP 10/15/18 12/08/19 Patricia Tobin MD PRIMARY ENT [address] [place], [place] [address] Assigned PCP 12/09/19 05/10/20 Karen Miller Personal Advocate & Liaison (PAL) Family Medicine 04/30/20 08/26/20 [place] [address] [place] [address] Assigned PCP 05/11/20 documented as of this encounter
--- OUTSIDE RECORDS SUMMARY | 2023-10-07 14:26 | XMS_ITS | Encounter Summary ---
Author Name Unknown Organization [facility] Address [address] [place] [address] Care Team Providers Care Lace Cutter Name Role Phone Leslie Silvestre MD Primary Care Provider [phone] Leslie Silvestre MD Unavailable [phone] Reason for Visit * Reason Onset Date Comments MyChart Communication 11/12/2020 Encounter Details Date Type Department Care Team (Latest Contact Info) Description 11/12/2020 MyC Medical Advice [address] [address] [place] [id number] [place] [address] MyChart Communication Social History Tobacco Use [...] and Family Once a week 06/28/2019 Attends [employer] Never 06/28 Active Member of Clubs [...] things needed for daily living? No 06/28/2019 [place] Depression Scale Answer Date Recorded [place] Depression Score 0 12/07/2018 Last EPDS Self Harm Result Not on file 12/07 Education Answer Date Recorded What is the highest level of school you have completed or the highest degree you have received? 12th grade 06/28/2019 Sex and Gender Information Value Date Recorded Sex Assigned at Female 06/28/2018 11:22 AM CRACKER SPRAYER Gender Identity Female 06/28/2018 11:22 AM CRACKER SPRAYER Sexual Orientation Not on file COVID-19 Exposure [...] to triage for review. Harjeet Connolly CMA ([facility]) documented in this encounter Plan of Treatment Not on file documented as of this encounter Visit Diagnoses Not on filedocumented in this encounter Additional Health Concerns Assessment Noted Time PHQ-9 Depression Total Score: 5 04/30/20 20 3:13 PM CRACKER SPRAYER documented as of this encounter Care Teams Lace Cutter Relationship Specialty [place] [address] [place] [address] PCP - General Family Practice 11/27/18 [place] [address] [place] [address] Assigned PCP 05/11/20 documented as of this encounter
--- OUTSIDE RECORDS SUMMARY | 2023-10-07 14:26 | XMS_ITS | Encounter Summary ---
Author Name Unknown Organization Home Address [address] [place] [address] Care Team Providers Care Charter Boat Operator Name Role Phone Leslie Silvestre MD Primary Care Provider [phone] Leslie Silvestre MD Unavailable [phone] Encounter Details Date Type Department Care Team (Late st Contact Info) Description 11/19/2020 MyC Medical Advice [facility] [address] [place] [address] Corina Palacios Social History Tobacco [...] and Family Once a week 06/28/2019 Attends [employer] Services Never 06/28 Active Member of Clubs [...] things needed for daily living? No 06/28/2019 [place] Depression Scale Answer Date Recorded [place] Depression Score 0 12/07/2018 Last EPDS Self Harm Result Not on file 12/07 Education Answer Date Recorded What is the highest level of school you have completed or the highest degree you have received? 12th grade 06/28/2019 Sex and Gender Information Value Date Recorded Sex Assigned at Female 06/28/2018 11:22 AM ADMINISTRATIVE ASST Gender Identity Female 06/28/2018 11:22 AM ADMINISTRATIVE ASST Sexual Orientation Not on file COVID-19 Exposure [...] Total Score: 5 04/30/20 20 3:13 PM ADMINISTRATIVE ASST documented as of this encounter Care Teams Charter Boat Operator Relationship Specialty [place] [address] [place] [address] PCP - General Family Practice 11/27/18 [place] [address] [place] [address] Assigned PCP 05/11/20 documented as of this encounter
--- OUTSIDE RECORDS SUMMARY | 2023-10-07 14:26 | XMS_ITS | Encounter Summary ---
Author Name Unknown Organization [facility] Address [address] [place] [address] Care Team Providers Care Dtp Operator Name Role Phone [facility] Primary Care Provider Patricia Tobin MD Unavailable + Roro Garber PACKAGE CHECKER Unavailable [phone] Ref-Primary, Physician Primary Care Provider Leslie Silvestre MD Unavailable [phone] Leslie Silvestre MD Primary Care Provider [phone] Patricia Tobin MD Unavailable + Karen Miller Unavailable Unavailable Leslie Silvestre MD Unavailable [phone] Reason for Visit * Reason Onset Date Comments Care 08/05/2018 palpatations Encounter Details Date Type Department Care Team (Late st Contact Info) Description 08/05/2018 MyC Medical Advice [facility] [address] [place] [address] Tarah Fields CNM NO INFO [...] Sex Assigned at Female 06/28/2018 11:22 AM TANK TRUCK DRIVER Gender Identity Female 06/28/2018 11:22 AM TANK TRUCK DRIVER Sexual Orientation Not on file documented as of this encounter Miscellaneous Notes * Telephone Encounter - Sridevi Valdez, RN - 08/07/2018 8:31 AM CDT Do you want a referral to cardiology or for her to see IM for ekg, she has had palpitations again. Sridevi Wayne R.N. [facility] documented in this encounter Plan of Treatment Not on file documented as of this encounter Visit Diagnoses Not on filedocumented in this encounter Additional Health Concerns Assessment Noted Time PHQ-9 Depression Total Score: 12 024 7:05 AM CDT documented as of this encounter Care Teams Dtp Operator Relationship Specialty Start Date End Date Clinic - [address] [address] PCP - General Internal Medicine 07/03/18 09/28/18 No Ref-Primary, Physician PCP - General 09/29/18 11/26/18 [place] [address] [place] [address] PCP - General Family Practice 11/27/18 Patricia Tobin MD PRIMARY ENT [address] [facility] [address] [place] [address] Assigned PCP 06/11/18 10/14/18 Roro Garber, PACKAGE CHECKER Clinic Bottle Inspector Primary Care - CC 07/26/18 [place] [address] [place] [address] Assigned PCP 10/15/18 12/08/19 Patricia Tobin MD PRIMARY ENT [address] [place], [place] [address] Assigned PCP 12/09/19 05/10/20 Karen Miller Personal Advocate & Liaison (PAL) Family Medicine 04/30/20 08/26/20 [place] [address] [place] [address] Assigned PCP 05/11/20 documented as of this encounter
--- OUTSIDE RECORDS SUMMARY | 2023-10-07 14:26 | XMS_ITS | Encounter Summary ---
Author Name Unknown Organization [facility] Address [address] [place] [address] Care Team Providers Care Storm Door Maker Name Role Phone Leslie Silvestre MD Primary Care Provider [phone] Karen Miller Unavailable Unavailable Leslie Silvestre MD Unavailable [phone] Encounter Details Date Type Department Care Team (Late st Contact Info) Description 05/29/2020 MyC Medical Advice [facility] [id number] [place] [address] [place] [id number] [place] [address] Social History Tobacco Use Types Packs/Day [...] and Family Once a week 06/28/2019 Attends [employer] Services Never 06/28 Active Member of Clubs [...] Answer Date Recorded PHQ-2 Score 2 04/30/2020 [facility] - Occupational [...] things needed for daily living? No 06/28/2019 [place] Depression Scale Answer Date Recorded [place] Depression Score 0 12/07/2018 Last EPDS Self Harm Result Not on file 12/07 Education Answer Date Recorded What is the highest level of school you have completed or the highest degree you have received? 12th grade 06/28/2019 Sex and Gender Information Value Date Recorded Sex Assigned at Female 06/28/2018 11:22 AM COFFEE GROWER Gender Identity Female 06/28/2018 11:22 AM COFFEE GROWER Sexual Orientation Not on file COVID-19 Exposure Response Date Recorded In the last month, have you been in contact with someone who was confirmed or suspected to have Coronavirus / COVID-19? No / Unsure 05/29/2020 9:40 AM COFFEE GROWER documented as of this encounter Miscellaneous Notes * Telephone Encounter - Evens Santana RN - 05/29/2020 5:52 PM CST Responded to patient via Smarterer, will monitor response Evens Santana RN EE GROWER * Telephone Encounter - Leslie Silvestre MD - 05/29/2020 5:43 PM CST I believe the control pill would be best to regulate her cycle and protect future fertility. If she is trying to conceive, I can refer her to MANAGER DATABASE for treatment and fertility consult EE GROWER documented in this encounter Plan of Treatment Not on file documented as of this encounter Visit Diagnoses Not on filedocumented in this encounter Additional Health Concerns Assessment Noted Time PHQ-9 Depression Total Score: 5 04/30/20 20 3:13 PM COFFEE GROWER documented as of this encounter Care Teams Storm Door Maker Relationship Specialty Start [place] [address] [place] [address] PCP - General Family Practice 11/27/18 Karen Miller Personal Advocate & Liaison (PAL) Family Medicine 04/30/20 08/26/20 [place] [address] [place] [address] Assigned PCP 05/11/20 documented as of this encounter
--- OUTSIDE RECORDS SUMMARY | 2023-10-07 14:26 | XMS_ITS | Encounter Summary ---
Author Name Unknown Organization [facility] Address [address] [place] [address] Care Team Providers Care Dimensional Inspector Name Role Phone Leslie Silvestre MD Primary Care Provider [phone] Leslie Silvestre MD Unavailable [phone] Encounter Details Date Type Department Care [...] often do you attend chur ch or hinduism services? Never 07/05/2022 Do you belong to any clubs o r organizations such as cheondoism groups, unions, fraternal or athletic groups, or [...] Answer Date Recorded PHQ-2 Score 5 01/31/2023 [facility] - Occupational Stress Questionnaire Answer [...] place to sleep or slept in a halfway (including now)? Patient refused 07/05/2022 [place] [...] Sex Assigned at Female 06/28/2018 11:22 AM APPAREL MANAGER Gender Identity Female 06/28/2018 11:22 AM APPAREL MANAGER Sexual Orientation Not on file documented as of this encounter Plan of Treatment Not on file documented as of this encounter Visit Diagnoses Not on filedocumented in this encounter Additional Health Concerns Assessment Noted Time PHQ-9 Depression Total Score: 9 08/03/19 24 10:57 AM CDT documented as of this encounter Care Teams Dimensional Inspector Relationship Specialty Start [place] [address] [place] [address] PCP - General Family Practice 11/27/18 [place] [address] [place] [address] Assigned PCP 05/11/20 documented as of this encounter
[2023-10-07 23:25] LABS: GC DNA Amplified* NOT DETECTED (No Detected)
[2023-10-08 00:07] LABS: Chlamydia DNA Amplified* DETECTED (No Detected)
== END 2023-10-07 14:24 | disposition home or self-care (01) ==
LOC: LKVREF 14:23
PROVIDERS: PCP Physician Assistant Medical; Visit Provider Physician Assistant
DX: Z11.3 Encounter for screening for infections with a predominantly sexual mode of transmission (principal)
CPT/HCPCS: 87491; 87591

== ENCOUNTER 2023-11-16 17:01 | Outpatient (CLI) | payer BC, SELFPAY ==
--- OUTSIDE RECORDS SUMMARY | 2023-11-16 17:03 | XMS_ITS | Clinical Summary ---
Author Organization [facility] Address [address] [place] [address]. [place] [address] Care Team Providers Care Skin Piler Name Role Phone Leslie Silvestre MD Primary Care Provider Leslie Silvestre MD Unavailable [phone] Jackelyn Carrera MD Unavailable [phone] Litzy Vergara PA-C Unavailable Jackelyn Carrera MD Unavailable [phone] Allergies Active Allergy Reactions Criticality Noted Date Comments No Known Drug Allergy 12/10/2002 Medications Medication Sig Dispensed Refills Start Date End Date Status norethindrone-ethin yl estradiol (MICROGESTIN 1.5/30) 1.5-30 MG-MCG tabletIndications:E ncounter for other contraceptive management Take 1 tablet by mouth daily 84 tablet 3 10/20/2023 Active norethindrone-ethin yl estradiol (06/11) 1-20 MG-MCG tabletIndications:E ncounter for other contraceptive management Take 1 tablet by mouth daily 84 tablet 3 03/18/2022 4 Discontinued(S topped by Patient (No AVS)) norethindrone-ethin yl estradiol (MICROGESTIN 1.5/30) 1.5-30 MG-MCG tabletIndications:E ncounter for other contraceptive management Take 1 tablet by mouth daily 84 tablet 3 07/05/2022 4 Discontinued(S topped by Patient (No AVS)) escitalopram (LEXAPRO) 10 MG tabletIndications:M oderate episode of recurrent major depressive disorder (H),KERWIN (generalized anxiety disorder) Take 1 tablet (10 mg) by mouth daily 30 tablet 1 02/02/2023 4 Discontinued(N ot filled/taken by Patient (No AVS)) doxycycline hyclate (VIBRAMYCIN) 100 MG capsule take 1 capsule by mouth twice daily for 7 days 10/08/2023 4 Discontinued(T herapy completed (No AVS)) Active Problems Problem Noted Date Diagnosed Date [...] NIL Pap. Plan pap in 3 years. (normal spontaneous vaginal delivery) 12/06 Adjustment disorder with mixed anxiety and depre ssed mood 03/30/2018 Acne vulgaris 03/25/2015 Blood type AB+ Resolved Problems Problem Noted Date Diagnosed Date Resolved Date Indication for care in labor or delivery 12/06/2018 10/25/2023 Encounters Date Type Department Care Team Description 11/08/2023 MyC Medical Advice [facility] [address] [place] [phone] Jackelyn Carrera MD 10/25/2023 2:15 PM CDT Office Visit [facility] [address] [place] [phone] Litzy Vergara, Jackelyn Solomon MD Menorrhagia with regular cycle (Primary Dx); Hyperandrogenism 10/25/2023 Travel 10/20/2023 9:30 AM CDT Office Visit [facility] [address] [place] [phone] Litzy Vergara, MYRA Menorrhagia with regular cycle (Primary Dx); Vitreous floaters of both eyes; Family history of diabetes mellitus; Encounter for other contraceptive management; Moderate recurrent major depression (H); Hyperandrogenism 10/20/2023 Travel 10/11/[address] [facility] [address] [place] [phone] Leslie Silvestre MD 10/11/2023 Telephone [facility] [place] [address] Shyla Farah RN Results 10/10/2023 2:14 PM CDT - 10/10/2023 11:17 PM CDT Emergency [facility] Emergency Dept [address] [place] [phone] Pepito Lima MD Discharge Disposition: Left Without Being Seen 10/10/2023 Travel from Last 3 Months Immunizations Name [...] alcohol) 0-2 x week Social Connection and Isolation Panel [NHANES] A nswer Date Recorded In a typical week, how many times do you talk on the phone with family, friends, or neighbors? Three times a week 08/03/2023 How often do you get togethe r with friends or relatives? Once a week 08/03/2023 How often do you attend chur ch or restoration services? Never 08/03/2023 Do you belong to any clubs o r organizations such as orthodox groups, unions, fraternal or athletic groups, or school groups? No 08/03/2023 How often do you attend meet ings of the clubs or organizations you belong to? Never 08/03/2023 Are you , , di vorced, , never , or living with a partner? Never 08/03/2023 AUDIT-C Answer Date Recorded Q1: How often do you have a drink containing alcohol? Never 08/03/2023 Q2: How many drinks containi ng alcohol do you have on a typical day when you are drinking? Patient does not drink Q3: How often do you have si x or more drinks on one occasion? Never 08/03/2023 PHQ-2 Answer Date Recorded PHQ-2 Score 0 10/20/2023 [facility] - Occupational Stress Questionnaire Answer Date Recorded Do you feel stress - tense, restless, nervous, or anxious, or unable to sleep at night because your mind is troubled all the time - these days? To some extent 08/03/2023 Exercise Vital Sign Answer Date Recorde d On average, how many days pe r week do you engage in moderate to strenuous exercise (like a brisk walk)? 3 days 08/03/2023 On average, how many minutes do you engage in exercise at this level? 30 min 08/03/2023 [place] Depression Scale Answer Date Recorded [place] Depression Score 0 12/07/2018 Last EPDS Self Harm Result Not on file 12/07 Adolescent Education Answer Date Record ed Getting School Help Needed Not on file 02/17 Food Insecurity Answer Date Recorded Within the past 12 months, d id you worry that your food would run out before you got money to buy more? No 08/03/2023 Within the past 12 months, d id the food you bought just not last and you didn? t have money to get more? No 08/03/2023 Housing Stability Answer Date Recorded Do you have housing? (Housin g is defined as stable permanent housing and does not include staying ouside in a car, in a tent, in an abandoned building, in an overnight snf, or couch-surfing.) Yes 08/03/2023 Are you worried about losing your housing? No 08/03/2023 Financial Resource Strain Answer Date R ecorded Within the past 12 months, h ave you or your family members you live with been unable to get utilities (heat, electricity) when it was really needed? No 08/03/2023 Transportation Needs Answer Date Record ed Within the past 12 months, h as lack of transportation kept you from medical appointments, getting your medicines, non-medical meetings or appointments, work, or from getting things that you need? No 08/03/2023 Education Answer Date Recorded What is the highest level of school you have completed or the highest degree you have received? 12th grade 06/28/2019 Sex and Gender Information Value Date Recorded Sex Assigned at Female 06/28/2018 11:22 AM SOFTWARE SUPPORT TECHNICIAN Gender Identity Female 06/28/2018 11:22 AM SOFTWARE SUPPORT TECHNICIAN Sexual Orientation Not on file Last Filed Vital Signs Vital Sign Reading Time Taken Comments Blood Pressure 112/64 10/25/2023 2:17 PM CDT Pulse 88 10/20/2023 9:35 AM CDT Temperature 36.8 ??C (98.2 ??F) 10/20/2023 9:35 AM CD T Respiratory Rate 14 10/20/2023 9:35 AM CDT Oxygen Saturation 99% 10/20/2023 9:35 AM CDT Inhaled Oxygen Concentration - - Weight 55.6 kg (122 lb 8 oz) 10/25/2023 2:17 PM CDT Height 160 cm (5' 3) 10/20/2023 9:35 AM CDT Body Mass Index 21.7 10/20/2023 9:35 AM CDT Plan of Treatment Upcoming Encounters Date Type Department Care Team (Late st Contact Info) Description 12/22/2023 11:00 AM CDT Office Visit [facility] [address] [place] [address] Jackelyn Carrera MD [address] [place] [address] Health Maintenance Due Date Last Done Comments COVID-19 Vaccine ( season) 2023 ANNUAL REVIEW OF HM ORDERS 07/05/2023 07/05/2022, YEARLY PREVENTIVE VISIT 07/05/2023 07/05/19 23, 04/30/2020, 06/28/2019, Additional history exists INFLUENZA VACCINE (Season Ended) 2024 05/31/2019, 04/17/2018, 02/20/2018, Additional history exists PHQ-9 04/21/2024 10/20/2023, 07/21, 01/31/2023, Additional history exists PAP 03/17/2025 03/17/2022, 12/01/2020, 06/28/2019 ADVANCE CARE PLANNING 07/05/2027 07/05/2022 DTAP/TDAP/TD [...] Procedure Name Priority Date/Time Associated Diagnosis Comments UA MICROSCOPIC WITH REFLEX TO CULTURE Routine 10/20/2023 10:11 AM CDT Menorrhagia with regular cycle UA MACROSCOPIC WITH REFLEX TO MICRO AND CULTURE Routine 10/20/2023 10:11 AM CDT Menorrhagia with regular cycle PROLACTIN Add-On 10/20/2023 10:05 AM CDT Hyperandrogenism TSH WITH FREE T4 REFLEX Add-On 10/20/2023 10:05 AM CDT Hyperandrogenism HEMOGLOBIN A1C Routine 10/20/2023 10:05 AM CDT Family history of diabetes mellitus EXTRA PURPLE TOP EDTA (LAB USE ONLY) Routine 10/20/2023 10:05 AM CDT Family history of diabetes mellitus EXTRA GREEN TOP TUBE (LAB USE ONLY) Routine 10/20/2023 10:05 AM CDT Family history of diabetes mellitus URINE CULTURE STAT 10/10/2023 5:28 PM CDT ROUTINE UA WITH MICROSCOPIC REFLEX TO CULTURE STAT 10/10/2023 5:28 PM CDT CBC WITH PLATELETS & DIFFERENTIAL STAT 10/10/2023 4:27 PM CDT CBC WITH PLATELETS AND DIFFERENTIAL STAT 10/10/2023 4:27 PM CDT BASIC METABOLIC PANEL STAT 10/10/2023 4:27 PM CDT HCG QUALITATIVE STAT 10/10/2023 4:27 PM CDT NEISSERIA GONORRHOEAE PCR STAT 02/22/2023 12:37 AM CDT GYNECOLOGIC CYTOLOGY Routine 03/17/2022 8:26 AM CDT Cervical cancer screening HIV ANTIGEN ANTIBODY COMBO Routine 10/29/2020 5:03 PM CDT Screen for STD (sexually transmitted disease) HEPATITIS C SCREEN REFLEX TO HCV RNA QUANT AND GENOTYPE Routine 04/30/2020 4:18 PM SOFTWARE SUPPORT TECHNICIAN Need for hepatitis C screening test from Last 3 Months or Most Recently Relevant to Health Maintenance Results * (ABNORMAL) UA Microscopic with Reflex to Culture (10/20/2023 10:11 AM CDT) Bacteria Urine Many(A) None Seen /HPF [facility] 10/20/2023 10:21 AM CDT [facility] RBC Urine 0-2 0-2 /HPF /HPF [facility] 10/20/2023 10:21 AM CDT [facility] WBC Urine 0-5 0-5 /HPF /HPF [facility] 10/20/2023 10:21 AM CDT [facility] Squamous Epithelials Urine Many(A) None Seen /LPF [facility] 10/20/2023 10:21 AM CDT [facility] Urine URINE SPECIMEN OBTAINED BY CLEAN CATCH PROCEDURE / Unknown Non-blood Collection / Unknown 10/20/2023 10:11 AM CDT 10/20/2023 10:11 AM CDT Narrative [facility] - 10/20/2023 10:21 AM CDT Urine Culture not indicated Litzy Vergara PA-C LAB - URINE ORDERA BLES [facility] LAB[facility]ORY [facility] [address] [facility] Lab (no room number, 1st floor of clinic) [place] [address], [facility] [phone] * (ABNORMAL) UA Macroscopic with reflex to Microscopic and Culture - Lab Collect (10/20/2023 10:11 AMCDT) Color Urine Yellow Colorless, Straw, Light Yellow, Yellow 10/20/2023 10:20 AM CDT [facility] Appearance Urine Slightly Cloudy(A) Clear 10/20/2023 10:20 AM CDT [facility] Glucose Urine Negative Negative mg/dL 10/20/2023 10:20 AM CDT [facility] Bilirubin Urine Negative Negative 10:20 AM CDT [facility] Ketones Urine Trace(A) Negative mg/dL 10/20/2023 10:20 AM CDT [facility] Specific [place] Urine 1.025 1.003 - 1.035 10/20/2023 10:20 AM CDT [facility] Blood Urine Negative Negative 10/20/2023 10:20 AM CDT [facility] pH Urine 7.0 5.0 - 7.0 10/20/2023 10:20 AM CDT [facility] Protein Albumin Urine Negative Negative mg/dL 10/20/2023 10:20 AM CDT [facility] Urobilinogen Urine 0.2 0.2, 1.0 E.U./dL 10/20/2023 10:20 AM CDT [facility] Nitrite Urine Negative Negative 10/20/2023 10:20 AM CDT [facility] Leukocyte Esterase Urine Negative Negative 10/20/2023 10:20 AM CDT [facility] Urine URINE SPECIMEN OBTAINED BY CLEAN CATCH PROCEDURE / Unknown Non-blood Collection / Unknown 10/20/2023 10:11 AM CDT 10/20/2023 10:11 AM CDT Litzy Vergara PA-C LAB - URINE ORDERA BLES Performing Organization Address City/[facility] Co de Phone Number [facility] [address] [place] [address] (no room number, 1st floor of [facility]) [place] [address], [facility] [phone] * Extra Green Top Tube (LAB USE ONLY) (10/20/2023 10:05 AM CDT) Hold Specimen [facility] 10/20/2023 11:17 AM CDT [facility] Blood BLOOD SPECIMEN / Unknown Venipuncture / Unknown 10/20/2023 10:05 AM CDT 10/20/2023 10:05 AM CDT Litzy Vergara PA-C LAB - BLOOD ORDERA BLES Performing Organization Address City/[facility] Co de Phone Number [facility] [address] [place] [address] Lab (no room number, 1st floor of clinic) [place] [address], [facility] [phone] * Extra Purple Top EDTA (LAB USE ONLY) (10/20/2023 10:05 AM CDT) Hold Specimen [facility] 10/20/2023 11:17 AM CDT [facility] Blood BLOOD SPECIMEN / Unknown Venipuncture / Unknown 10/20/2023 10:05 AM CDT 10/20/2023 10:05 AM CDT Litzy Vergara PA-C LAB - BLOOD ORDERA BLES Performing Organization Address City/[facility]/ZIP Co de Phone Number CR LAB[facility] [address] [place] [address] Lab (no room number, 1st floor of [facility]) [place] [address], [facility] [phone] * TSH with free T4 reflex (10/20/2023 10:05 AM CDT) TSH 1.83 0.30 - 4.20 uIU/mL 10/26/2023 4:39 PM CDT [facility] Blood BLOOD SPECIMEN / Unknown Venipuncture / Unknown 10/20/2023 10:05 AM CDT 10/20/2023 10:05 AM CDT Jackelyn Carrera MD LAB - BLOOD ORDERABL ES U LABORATORY [facility] [place] [facility] [address] [facility], [address] * Prolactin (10/20/2023 10:05 AM CDT) Prolactin 21 5 - 23 ng/mL 10/26/2023 6:24 PM CDT [facility] Blood BLOOD SPECIMEN / Unknown Venipuncture / Unknown 10/20/2023 10:05 AM CDT 10/20/2023 10:05 AM CDT Jackelyn Carrera MD LAB - BLOOD ORDERABL ES Performing Organization Address City/[facility]/ZIP Co de Phone Number LABORATORY [facility] Core Lab [address] [facility], [address] * Hemoglobin A1c (10/20/2023 10:05 AM CDT) Hemoglobin A1C 5.5 0.0 - 5.6 % 10/20/2023 10:10 AM CDT [facility] Comment: Normal <5.7% Prediabetes 5.7-6.4% ?? Diabetes 6.5% or higher Note: Adopted from ADA consensus guidelines. Blood BLOOD SPECIMEN / Unknown Venipuncture / Unknown 10/20/2023 10:05 AM CDT 10/20/2023 10:05 AM CDT Litzy Vergara PA-C LAB - BLOOD ORDERA BLES CR LAB[facility] [address] Lab (no room number, 1st floor of clinic) [place] [address], [facility] [phone] * (ABNORMAL) UA with Microscopic reflex to Culture (10/10/2023 5:28 PM CDT) Color Urine Light Brown(A) Colorless, Straw, Light Yellow, Yellow 10/10/2023 5:58 PM CDT LABORATORY Appearance Urine Slightly Cloudy(A) Clear 10/10/2023 5:58 PM CDT LABORATORY Glucose Urine Negative Negative mg/dL 10/10/2023 5:58 PM CDT LABORATORY Bilirubin Urine Negative Negative 5:58 PM CDT LABORATORY Ketones Urine Negative Negative mg/dL 10/10/2023 5:58 PM CDT LABORATORY Specific [place] Urine 1.019 1.003 - 1.035 10/10/2023 5:58 PM CDT LABORATORY Blood Urine Large(A) Negative 10/10/2023 5:58 PM CDT LABORATORY pH Urine 6.5 5.0 - 7.0 10/10/2023 5:58 PM CDT LABORATORY Protein Albumin Urine 30(A) Negative mg/dL 10/10/2023 5:58 PM CDT LABORATORY Urobilinogen Urine Normal Normal, 2.0 mg/dL 10/10/2023 5:58 PM CDT LABORATORY Nitrite Urine Negative Negative 10/10/2023 5:58 PM CDT LABORATORY Leukocyte Esterase Urine Small(A) Negative 10/10/2023 5:58 PM CDT LABORATORY Mucus Urine Present(A) None Seen /LPF 10/10/2023 5:58 PM CDT LABORATORY RBC Urine >182(H) <=2 /HPF 10/10/2023 5:58 PM CDT LABORATORY WBC Urine 55(H) <=5 /HPF 10/10/2023 5:58 PM CDT LABORATORY Squamous Epithelials Urine 3(H) <=1 /HPF 10/10/2023 5:58 PM CDT LABORATORY Urine MID-STREAM URINE SPECIMEN / Unknown Non-blood Collection / Unknown 10/10/2023 5:28 PM CDT 10/10/2023 5:39 PM CDT Narrative LABORATORY - 10/10/2023 5:58 PM CDT Urine Culture ordered based on laboratory criteria Mary Israel DO LAB - URINE ORDE RABLES SH LABORATORY [facility] Lab [address] 1st floor, [address] [place] [address], [facility] [phone] * Urine Culture (10/10/2023 5:28 PM CDT) Pathologist [facility] Culture 50,000-100,000 CFU/mL Mixture of urogenital bon [facility] 10/12/2023 2:35 PM CDT [facility] Urine MID-STREAM URINE SPECIMEN / Unknown Non-blood Collection / Unknown 10/10/2023 5:28 PM CDT 10/10/2023 5:58 PM CDT Mary Israel DO LAB - MICRO GENE RAL ORDERABLES [facility]AT[facility] Inf. Diseases Diag. Lab [address] [facility], [address] [place] [address], [facility] * (ABNORMAL) CBC with platelets and differential (10/10/2023 4:27 PM CDT) WBC Count 5.1 4.0 - 11.0 10e3/uL 10/10/2023 4:43 PM CDT LABORATORY RBC Count 4.38 3.80 - 5.20 10e6/uL 10/10/2023 4:43 PM CDT LABORATORY Hemoglobin 12.1 11.7 - 15.7 g/dL 10/10/2023 4:43 PM CDT LABORATORY Hematocrit 38.6 35.0 - 47.0 % 10/10/2023 4:43 PM CDT LABORATORY MCV 88 78 - 100 fL 10/10/2023 4:43 PM CDT LABORATORY MCH 27.6 26.5 - 33.0 pg 10/10/2023 4:43 PM CDT LABORATORY MCHC 31.3(L) 31.5 - 36.5 g/dL 10/10/2023 4:43 PM CDT LABORATORY RDW 12.0 10.0 - 15.0 % 10/10/2023 4:43 PM CDT LABORATORY Platelet Count 255 150 - 450 10e3/uL 10/10/2023 4:43 PM CDT LABORATORY % Neutrophils 64 % 10/10/2023 4:43 PM CDT LABORATORY % Lymphocytes 28 % 10/10/2023 4:43 PM CDT LABORATORY % Monocytes 6 % 10/10/2023 4:43 PM CDT LABORATORY % Eosinophils 1 % 10/10/2023 4:43 PM CDT LABORATORY % Basophils 1 % 10/10/2023 4:43 PM CDT LABORATORY % Immature Granulocytes 0 % 10/10/2023 4:43 PM CDT LABORATORY NRBCs per 100 WBC 0 <1 /100 024 4:43 PM CDT LABORATORY Absolute Neutrophils 3.3 1.6 - 8.3 10e3/uL 10/10/2023 4:43 PM CDT LABORATORY Absolute Lymphocytes 1.4 0.8 - 5.3 10e3/uL 10/10/2023 4:43 PM CDT LABORATORY Absolute Monocytes 0.3 0.0 - 1.3 10e3/uL 10/10/2023 4:43 PM CDT LABORATORY Absolute Eosinophils 0.1 0.0 - 0.7 10e3/uL 10/10/2023 4:43 PM CDT LABORATORY Absolute Basophils 0.0 0.0 - 0.2 10e3/uL 10/10/2023 4:43 PM CDT LABORATORY Absolute Immature Granulocytes 0.0 <=0.4 10e3/uL 10/10/2023 4:43 PM CDT LABORATORY Absolute NRBCs 0.0 10e3/uL 10/10/2023 4:43 PM CDT LABORATORY Blood BLOOD SPECIMEN / Unknown Venipuncture / Unknown 10/10/2023 4:27 PM CDT 10/10/2023 4:38 PM CDT Mary Israel DO LAB - BLOOD ROE HUGO [facility] Organization Address City/State/ZIP Co de Phone Number LABORATORY [facility] [address] 1[address] floor, [address] [place] [address], [facility] [phone] * HCG QUALitative (blood) (10/10/2023 4:27 PM CDT) hCG Serum Qualitative Negative Negative [facility] 10/10/2023 4:51 PM CDT LABORATORY Comment:This test is for scr eening purposes. Results should be interpreted along with the clinical picture. Confirmation testing is available if warranted by ordering [id number], HCG Quantitative . Blood BLOOD SPECIMEN / Unknown Venipuncture / Unknown 10/10/2023 4:27 PM CDT 10/10/2023 4:38 PM CDT Mary Israel DO LAB - BLOOD ARTUR ARIAS LABORATORY [facility] [address] 1[address] floor, [address] [place] [address], [facility] [phone] * Basic metabolic panel (10/10/2023 4:27 PM CDT) Sodium 138 135 - 145 mmol/L 10/10/2023 5:08 PM CDT LABORATORY Comment:Reference intervals for this test were updated on 02/15/2023 to more accurately reflect our healthy population. There may be differences in the flagging of prior results with similar values performed with this method. Interpretation of those prior results can be made in the context of the updated reference intervals. Potassium 3.6 3.4 - 5.3 mmol/L 10/10/2023 5:08 PM CDT LABORATORY Chloride 103 98 - 107 mmol/L 10/10/2023 5:08 PM CDT LABORATORY Carbon Dioxide (CO2) 26 22 - 29 mmol/L 10/10/2023 5:08 PM CDT LABORATORY Anion Gap 9 7 - 15 mmol/L 10/10/2023 5:08 PM CDT LABORATORY Urea Nitrogen 10.6 6.0 - 20.0 mg/dL 10/10/2023 5:08 PM CDT LABORATORY Creatinine 0.68 0.51 - 0.95 mg/dL 10/10/2023 5:08 PM CDT LABORATORY GFR Estimate >90 >60 mL/min/1. 73m2 10/10/2023 5:08 PM CDT LABORATORY Calcium 9.0 8.6 - 10.0 mg/dL 10/10/2023 5:08 PM CDT LABORATORY Glucose 95 70 - 99 mg/dL 10/10/2023 5:08 PM CDT LABORATORY Blood BLOOD SPECIMEN / Unknown Venipuncture / Unknown 10/10/2023 4:27 PM CDT 10/10/2023 4:38 PM CDT Mary Israel DO LAB - BLOOD ARTUR ARIAS LABORATORY [facility] [address] 1[address] floor, [address] [place] [address], [place] [phone] * Neisseria gonorrhoea PCR (02/22/2023 12:37 AM CDT) Neisseria gonorrhoeae Negative Negative 02/22/2023 11:33 AM CDT [facility] Comment:Negative for N. gono rrhoeae rRNA by glass cut off supervisor mediated amplification. A negative result by glass cut off supervisor mediated amplification does not preclude the presence of C. trachomatis infection because results are dependent on proper and adequate collection, absence of inhibitors and sufficient rRNA to be detected. Swab ENDOCERVICAL STRUCTURE / Unknown Non-blood Collection / Unknown 02/22/2023 12:37 AM CDT 02/22/2023 12:40 AM CDT Rickey Elizondo MD LAB - MICRO GENERA L ORDERABLES [facility] Inf. Diseases Diag. Lab [address] [facility], [address] [place] [address], [place] [phone] * Pap Screen only - recommended age [...] component of this testing was completed at [facility] 03/19/2022 2:52 PM CDT SPECIALTY LABS Brushing CERVIX UTERI STRUCTURE / Unknown 03/17/2022 8:26 AM CDT 03/17/2022 8:56 AM CDT Litzy MILLER [facility] Specialty Lab [address] [facility], [address] [place] [address], [facility] [phone] * HIV Antigen Antibody Combo (10/29/2020 5:03 PM CDT) HIV Antigen Antibody Combo Nonreactive NR^Nonrea ctive 10/30/2020 3:42 PM CDT [facility] Comment:HIV-1 p24 Ag & HIV-1 /HIV-2 Ab Not Detected Blood 10/29/2020 5:03 PM CDT 10/29/2020 5:04 PM CDT Leslie Silvestre MD LAB - BLOOD ORDERABL ES [facility] [address] [place] [address] * Hepatitis C Screen Reflex to HCV RNA Quant and Genotype (04/30/2020 4:18 PM SOFTWARE SUPPORT TECHNICIAN) Hepatitis C Antibody Nonreactive NR^Nonre active 05/02/2020 10:31 AM SOFTWARE SUPPORT TECHNICIAN [facility] Comment: Assay performance characteristics have not been established for newborns, infants, and children Blood specimen (specimen) 04/30/2020 4:18 PM SOFTWARE SUPPORT TECHNICIAN 04/30/2020 4:19 PM SOFTWARE SUPPORT TECHNICIAN Leslie Silvestre MD LAB - BLOOD ORDERABL ES [facility] [address] [place] [address] from Last 3 Months or Most Recently Relevant to Health Maintenance Care Teams Skin Piler Relationship Specialty [place] [address] [place] [address] PCP - General Family Practice 11/27/18 [place] [address] [place] [address] Assigned PCP 05/11/20 Jackelyn Carrera MD [address] [place] [address] nurse executive 10/21/23 Litzy Vergara PA-C [address] [place] [address] Physician [facility] 10/21/23 Jackelyn Carrera MD [address] [place] [address] Assigned OBGYN Provider 11/13/23
--- OUTSIDE RECORDS SUMMARY | 2023-11-16 17:03 | XMS_ITS | Encounter Summary ---
Author Organization [facility] Address [address] [place] [address] Care Team Providers Care Criminal Lawyer Name Role Phone Leslie Silvestre MD Primary Care Provider [phone] Leslie Silvestre MD Unavailable [phone] Jackelyn Carrera MD Unavailable [phone] Litzy Vergara PA-C Unavailable [phone] Encounter Details Date Type Department Care Team (Latest Contact Info) Description 10/25/2023 Travel Social History Tobacco Use Types Packs/Day [...] often do you attend chur ch or anabaptism services? Never 08/03/2023 Do you belong to [...] Answer Date Recorded PHQ-2 Score 0 10/[facility]/2023 [facility] - [...] exercise at this level? 30 min 08/03/2023 [place] Depression Scale Answer Date Recorded [place] Depression Score 0 12/07/2018 Last EPDS Self [...] in an abandoned building, in an overnight detention, or couch-surfing.) Yes 08/03/2023 Are you worried [...] Sex Assigned at Female 06/28/2018 11:22 AM MULTI SPINDLE OPERATOR Gender Identity Female 06/28/2018 11:22 AM MULTI SPINDLE OPERATOR Sexual Orientation Not on file documented as of this encounter Plan of Treatment Upcoming Encounters Date Type Department Care Team (Late st Contact Info) Description 12/22/2023 11:00 AM CDT Office Visit [facility] [address] [facility] [address] [place] [phone] Jackelyn Carrera MD [address] [place], [place] [address] documented as of this encounter Visit Diagnoses Not on filedocumented in this encounter Additional Health Concerns Assessment Noted Time PHQ-9 Depression Total Score: 5 10/20/19 24 9:22 AM CDT documented as of this encounter Care Teams Criminal Lawyer Relationship Specialty [place] [address] [place] [address] PCP - General Family Practice 11/27/18 [place] [address] [place] [address] Assigned PCP 05/11/20 Jackelyn Carrera MD [address] [place], [place] [address] pest control service representative 10/21/23 Litzy Vergara, PARupertoC [address] [place] [address] Physician Campus Interviews Intern Family Medicine 10/21/23 documented as of this encounter
--- OUTSIDE RECORDS SUMMARY | 2023-11-16 17:03 | XMS_ITS | Clinical Summary ---
Author Organization [facility] Address [place], [place] [address] Care Team Providers Care Operations Representative Name Role Phone Tiffany Frey PA-C Primary [...] Comments Blood Pressure 130/87 06/23/2023 12:58 PM MIRROR POLISHER Pulse 110 06/23/2023 12:58 PM MIRROR POLISHER Temperature 36.8 ??C (98.3 ??F) 07/01/2012 7:57 PM CS T Respiratory Rate 18 07/01/2012 7:57 PM MIRROR POLISHER Oxygen Saturation 98% 06/23/2023 12:58 PM MIRROR POLISHER Inhaled Oxygen Concentration - - Weight 52.9 kg (116 lb 9.6 oz) 06/23/2023 12:58 PM MIRROR POLISHER Height 160 cm (5' 3) 06/23/2023 12:58 PM MIRROR POLISHER Body Mass Index 20.65 06/23/2023 12:58 PM MIRROR POLISHER Plan of Treatment Health Maintenance Due Date [...] age to complete this topic Care Teams Operations Representative Relationship Specialty Start Date End Date Tiffany Frey PA-C [address] [place] [address] PCP - General Emergency Medicine 06/23/23
--- OUTSIDE RECORDS SUMMARY | 2023-11-16 17:03 | XMS_ITS | Referral Summary ---
Author Organization [facility] Address [address] [place] [address] Care Team Providers Care Courtesy Booth Cashier Name Role Phone Leslie Silvestre MD Primary Care Provider [phone] Leslie Silvestre MD Unavailable [phone] Jackelyn Carrera MD Unavailable [phone] Litzy Vergara PA-C Unavailable [phone] Jackelyn Carrera MD Unavailable [phone] Encounters Date Type Department Care Team Description 11/08/2023 MyC Medical Advice [address] [place] [phone] Jackelyn Carrera MD 10/25/2023 Travel 10/25/2023 2:15 PM CDT Office Visit [address] [place] [phone] iLtzy Vergara PA-C Brown, Alison B, MD Menorrhagia with regular cycle (Primary Dx); Hyperandrogenism 10/20/2023 Travel 10/20/2023 9:30 AM CDT Office Visit [address] [address] Vergara, Litzy E, PA-C Menorrhagia with regular cycle (Primary Dx); Vitreous floaters of both eyes; Family history of diabetes mellitus; Encounter for other contraceptive management; Moderate recurrent major depression (H); Hyperandrogenism 10/11/2023 Telephone [facility] [address] [place] [address] Leslie Silvestre MD 10/11/2023 Telephone M [facility] [address] [place] [address] Shyla Farah RN Results 10/10/2023 Travel 10/10/2023 2:14 PM CDT - 10/10/2023 11:17 PM CDT Emergency M [facility] Emergency Dept [address] [place] [phone] Pepito Lima MD Discharge Disposition: Left Without Being Seen from Last 3 Months Allergies Active Allergy Reactions Criticality Noted Date Comments No Known Drug Allergy 12/10/2002 Medications Medication Sig Dispensed Refills Start Date End Date Status norethindrone-ethin yl estradiol (MICROGESTIN 1.30) 1.5-30 MG-MCG tabletIndications:E ncounter for other contraceptive management Take 1 tablet by mouth daily 84 tablet 3 10/20/2023 Active norethindrone-ethin yl estradiol (JUNE06/11) 1-20 MG-MCG tabletIndications:E ncounter for other contraceptive management Take 1 tablet by mouth daily 84 tablet 3 03/18/2022 4 Discontinued(S topped by Patient (No AVS)) norethindrone-ethin yl estradiol (MICROGESTIN 1.30) 1.5-30 MG-MCG tabletIndications:E ncounter for other contraceptive [...] care in labor or delivery 12/06/2018 10/25/2023 Immunizations Name Administration Dates Next Due DTAP [...] 08/03/2023 How often do you attend chur or restorationism services? Never 08/03/2023 Do you belong to [...] Answer Date Recorded PHQ-2 Score 0 10/20/2023 [facility] - Occupational Stress [...] exercise at this level? 30 min 08/03/2023 [place] Depression Scale Answer Date Recorded [place] Depression Score 0 12/07/2018 Last EPDS Self [...] Answer Date Recorded Do you have housing? (Cris soliz is defined as stable permanent housing and does not include staying ouside in a car, in a tent, in an abandoned building, in an overnight fpc, or couch-surfing.) Yes 08/03/2023 Are you worried [...] Sex Assigned at Female 06/28/2018 11:22 AM AUTO BODY REPAIRER FIBERGLASS Gender Identity Female 06/28/2018 11:22 AM AUTO BODY REPAIRER FIBERGLASS Sexual Orientation Not on file Last Filed [...] Description 12/22/2023 11:00 AM CDT Office Visit [facility] [address] [place] [phone] Jackelyn Carrera MD [address] [place] [address] Procedures Procedure Name Priority Date/Time Associated Diagnosis [...] QUANT AND GENOTYPE Routine 04/30/2020 4:18 PM AUTO BODY REPAIRER FIBERGLASS Need for hepatitis C screening test from [...] LAB - URINE ORDERA BLES CR LABORATORY [facility] Lab [address] [facility] Lab (no room number, 1st floor of [facility] [place] [address], [facility] [phone] * (ABNORMAL) UA Macroscopic with reflex to [...] 10/20/2023 10:20 AM CDT CR LABORATORY Specific [place] Urine 1.025 1.003 - 1.035 10/20/2023 10:20 [...] LAB - URINE ORDERA BLES CR LABORATORY [facility] Lab [address] [place] [address] Lab (no room number, 1st floor of [facility] [place] [address], [facility] [phone] * Extra Green Top Tube (LAB USE ONLY) (10/20/2023 10:05 AM CDT) Hold Specimen [facility] 10/20/2023 11:17 AM CDT CR LABORATORY Blood BLOOD SPECIMEN / Unknown Venipuncture / Unknown 10/20/2023 10:05 AM CDT 10/20/2023 10:05 AM CDT Litzy Vergara PA-C LAB - BLOOD ORDERA BLES CR LABORATORY [facility] Lab [address] [place] [address] Lab (no room number, 1st floor of [facility] [place] [address], [facility] [phone] * Extra Purple Top EDTA (LAB USE ONLY) (10/20/2023 10:05 AM CDT) Hold Specimen [facility] 10/20/2023 11:17 AM CDT CR LABORATORY Blood BLOOD SPECIMEN / Unknown Venipuncture / Unknown 10/20/2023 10:05 AM CDT 10/20/2023 10:05 AM CDT Litzy Vergara PA-C LAB - BLOOD ORDERA BLES CR LABORATORY [facility] Lab [address] [place] [address] (no room number, 1st floor of [facility]) [place] [address], [facility] [phone] * TSH with free T4 reflex (10/20/2023 10:05 AM CDT) TSH 1.83 0.30 - 4.20 uIU/mL 10/26/2023 4:39 PM CDT [facility] LAB[facility]ATORY Blood BLOOD SPECIMEN / Unknown Venipuncture / Unknown 10/20/2023 10:05 AM CDT 10/20/2023 10:05 AM CDT Jackelyn Carrera MD LAB - BLOOD ORDERABL ES U LABORATORY [facility] [place] [facility] [address] [facility], [address] [address] * Prolactin (10/20/2023 10:05 AM CDT) Prolactin 21 5 - 23 ng/mL 10/26/2023 6:24 PM CDT [facility] LABORATORY Blood BLOOD SPECIMEN / Unknown Venipuncture / Unknown 10/20/2023 10:05 AM CDT 10/20/2023 10:05 AM CDT Jackelyn Carrera MD LAB - BLOOD ORDERABL ES Performing Organization Address City/[facility]/ZIP Co de Phone Number LABORATORY [facility] Core Lab [address] [facility], [address] [address] * Hemoglobin A1c (10/20/2023 10:05 AM CDT) Hemoglobin A1C 5.5 0.0 - 5.6 % 10/20/2023 10:10 AM CDT CR LABORATORY Comment: Normal <5.7% Prediabetes 5.7-6.4% ?? Diabetes 6.5% or higher Note: Adopted from ADA consensus guidelines. Blood BLOOD SPECIMEN / Unknown Venipuncture / Unknown 10/20/2023 10:05 AM CDT 10/20/2023 10:05 AM CDT Litzy Vergara PA-C LAB - BLOOD ORDERA BLES CR LABORATORY [facility] Lab [address] [place] [address] (no room number, 1st floor of clinic) [place] [address], [place] [phone] * (ABNORMAL) UA with Microscopic reflex to [...] mg/dL 10/10/2023 5:58 PM CDT LABORATORY Specific [place] Urine 1.019 1.003 - 1.035 10/10/2023 5:58 [...] criteria Mary Israel DO LAB - URINE ROE HUGO [facility] Organization Address City/State/ZIP Co de Phone Number LABORATORY [facility] Acute Care Lab [address] 1st floor, [address] [place] [address], [facility] [phone] * Urine Culture (10/10/2023 5:28 PM CDT) Pathologist [facility] Culture 50,000-100,000 CFU/mL Mixture of urogenital bon SHARRON 10/12/2023 2:35 PM CDT [facility] LABORATORY Urine MID-STREAM URINE SPECIMEN / Unknown Non-blood Collection / Unknown 10/10/2023 5:28 PM CDT 10/10/2023 5:58 PM CDT Mary Israel DO LAB - MICRO GENE RAL ORDERABLES [facility] LABORATORY [facility] Inf. Diseases Diag. Lab [address] [facility], [address] [place] [address], [facility] * (ABNORMAL) CBC with platelets and differential (10/10/2023 4:27 PM CDT) Pathologist [facility] WBC Count 5.1 4.0 - 11.0 10e3/uL [...] Israel DO LAB - BLOOD ROE HUGO [facility] Organization Address City/State/ZIP Co de Phone Number LABORATORY [facility] Acute Care Lab [address] 1st floor, [address] [place] [address], [facility] [phone] * HCG QUALitative (blood) (10/10/2023 4:27 PM CDT) hCG Serum Qualitative Negative Negative SHARRON 10/10/2023 4:51 PM CDT LABORATORY Comment:This test is for scr eening purposes. Results should be interpreted along with the clinical picture. Confirmation testing is available if warranted by ordering [id number], HCG Quantitative . Blood BLOOD SPECIMEN / Unknown Venipuncture / Unknown 10/10/2023 4:27 PM CDT 10/10/2023 4:38 PM CDT Mary Israel DO LAB - BLOOD ARTUR ARIAS LABORATORY [facility] Acute Care Lab [address] 1[address] floor, [address] [place] [address], [facility] [phone] * Basic metabolic panel (10/10/2023 4:27 PM CDT) Pathologist [facility] Sodium 138 135 - 145 mmol/L 10/10/2023 [...] DO LAB - BLOOD ARTUR ARIAS LABORATORY [facility] Lab [address] 1st floor, [address] [place] [address], [place] [phone] * Neisseria gonorrhoea PCR (02/22/2023 12:37 AM CDT) Neisseria gonorrhoeae Negative Negative 02/22/2023 11:33 AM CDT [facility] LABORAT[facility] Comment:Negative for N. gono rrhoeae rRNA by grooving machine operator mediated amplification. A negative result by grooving machine operator mediated amplification does not preclude the presence of C. trachomatis infection because results are dependent on proper and adequate collection, absence of inhibitors and sufficient rRNA to be detected. Swab ENDOCERVICAL STRUCTURE / Unknown Non-blood Collection / Unknown 02/22/2023 12:37 AM CDT 02/22/2023 12:40 AM CDT Rickey Elizondo MD LAB - MICRO GENERA L ORDERABLES [facility] LABORATORY [facility] Inf. Diseases Diag. Lab [address] [facility], [address] [place] [address], [place] [phone] * Pap Screen only - recommended age [...] component of this testing was completed at [facility] 03/19/2022 2:52 PM CDT SPECIALTY LABS Brushing CERVIX UTERI STRUCTURE / Unknown 03/17/2022 8:26 AM CDT 03/17/2022 8:56 AM CDT Litzy VARNER - MICHELLE MILLER Performing Organization Address City/[facility]/ZIP Co de Phone Number SPECIALTY LABS Specialty Lab [address] [facility], [address] [phone], [facility] [phone] * HIV Antigen Antibody Combo (10/29/2020 5:03 PM CDT) HIV Antigen Antibody Combo Nonreactive NR^Nonrea ctive 10/30/2020 3:42 PM CDT [facility] Comment:HIV-1 p24 Ag & HIV-1 /HIV-2 Ab Not Detected Blood 10/29/2020 5:03 PM CDT 10/29/2020 5:04 PM CDT Leslie Silvestre MD LAB - BLOOD ORDERABL ES [facility] [address] [place] [address] * Hepatitis C Screen Reflex to HCV RNA Quant and Genotype (04/30/2020 4:18 PM AUTO BODY REPAIRER FIBERGLASS) Hepatitis C Antibody Nonreactive NR^Nonre active 05/02/2020 10:31 AM AUTO BODY REPAIRER FIBERGLASS [facility] Comment: Assay performance characteristics have not been established for newborns, infants, and children Blood specimen (specimen) 04/30/2020 4:18 PM AUTO BODY REPAIRER FIBERGLASS 04/30/2020 4:19 PM AUTO BODY REPAIRER FIBERGLASS Leslie Silvestre MD LAB - BLOOD ORDERABL ES [facility] [address] [place] [address] from Last 3 Months or Most Recently Relevant to Health Maintenance Care Teams Courtesy Booth Cashier Relationship Specialty [place] [address] [place] [address] PCP - General Family Practice 11/27/18 [place] [address] [place] [address] Assigned PCP 05/11/20 Jackelyn Carrera MD [place] [address] golf course keeper 10/21/23 Litzy Vergara, PARupertoC [address] [place] [address] Physician Medical Record Clerk Family Medicine 10/21/23 Jackelyn Carrera MD [address] [place] [address] Assigned OBGYN Provider 11/13/23
--- OUTSIDE RECORDS SUMMARY | 2023-11-16 17:03 | XMS_ITS | Encounter Summary ---
Author Organization [facility] Address [address] [place] [address] Care Team Providers Care Skin Fitter Name Role Phone Leslie Silvestre MD Primary Care Provider [phone] Leslie Silvestre MD Unavailable [phone] Encounter Details Date Type Department Care Team (Latest Contact Info) Description 10/20/2023 Travel Social History Tobacco Use Types Packs/Day [...] attend chur ch or hinduism services? Never 08/03/2023 Do you belong to any clubs o r organizations such as mosque groups, unions, fraternal or athletic groups, or [...] Answer Date Recorded PHQ-2 Score 0 10/20/2023 [facility] - Occupational Stress Questionnaire Answer Date [...] exercise at this level? 30 min 08/03/2023 [place] Depression Scale Answer Date Recorded [place] Depression Score 0 12/07/2018 Last EPDS Self [...] Date Recorded Do you have housing? (Cris g is defined as stable permanent housing and does not include staying ouside in a car, in a tent, in an abandoned building, in an overnight long-term, or couch-surfing.) Yes 08/03/2023 Are you worried [...] Sex Assigned at Female 06/28/2018 11:22 AM RENDERING EQUIPMENT TENDER Gender Identity Female 06/28/2018 11:22 AM RENDERING EQUIPMENT TENDER Sexual Orientation Not on file documented as of this encounter Plan of Treatment Upcoming Encounters Date Type Department Care Team (Late st Contact Info) Description 12/22/2023 11:00 AM CDT Office Visit [facility] [address] [place] [address] Jackelyn Carrera MD [address] [place] [address] documented as of this encounter Visit Diagnoses Not on filedocumented in this encounter Additional Health Concerns Assessment Noted Time PHQ-9 Depression Total Score: 5 10/20/19 24 9:22 AM CDT documented as of this encounter Care Teams Skin Fitter Relationship Specialty Start [place] [address] [place] [address] PCP - General Family Practice 11/27/18 [place] [address] [place] [address] Assigned PCP 05/11/20 documented as of this encounter
--- OUTSIDE RECORDS SUMMARY | 2023-11-16 17:03 | XMS_ITS | Encounter Summary ---
Author Organization [facility] Address [address] [place] [address] Care Team Providers Care Relationship Specialist Name Role Phone Leslie Silvestre MD Primary Care Provider [phone] Leslie Silvestre MD Unavailable [phone] Jackelyn Carrera MD Unavailable [phone] Litzy Vergara PA-C Unavailable [phone] Reason for Referral * Diagnostic Imaging Ultrasound (Routine) - Pending Review Specialty Diagnoses / Procedures Referred By Abelardo farr Referred To Contact Radiology. Diagnoses Menorrhagia with regular cycle Procedures US Pelvic Transabdominal and Transvaginal Jackelyn Carrera [place] [address] Referral ID Status Reason Start Date Expiration Date V isits Requested Visits Authorized [id number] Pending Review 10/25/2023 10/24/2024 1 1 Reason for Visit * Reason Comments Consult For painful and heav y/abnormal periods. Patient reports this started back in January, her periods come around the same time each month, but the flow is irregular and she has been passing more clots. Periods last 5 days now, before they lasted 7, has a history of ovarian cysts and irregular bleeding. Last pelvic US was 03/2023 RECHECK Patient tested posit gilbert for chlamydia a week ago, and was treated. She has a recheck appointment coming up. * Consultation (Routine: Next available opening) - Pending Review Specialty Diagnoses / Procedures Referred By Abelardo farr Referred To Contact electrical supervisor Diagnoses Menorrhagia with regular cycle Litzy Vergara PA-C [address] [place] [address] Referral ID Status Reason Start Date Expiration Date V isits Requested Visits Authorized [id number] Pending Review 10/20/2023 10/19/2024 1 1 Encounter Details Date Type Department Care Team (Late st Contact Info) Description 10/25/2023 2:15 PM CDT Office Visit [facility] [address] [place] [phone] Litzy Vergara PA-C [address] [place] [address] Jackelyn Carrera MD [address] [place] [address] Menorrhagia with regular cycle (Primary Dx); Hyperandrogenism Social History Tobacco Use Types Packs/Day Years [...] often do you attend chur ch or jainism services? Never 08/03/2023 Do you belong to any clubs o r organizations such as samaritan groups, unions, fraternal or athletic groups, or [...] Answer Date Recorded PHQ-2 Score 0 10/20/2023 [facility] - Occupational [...] exercise at this level? 30 min 08/03/2023 Cordova Depression Scale Answer Date Recorded Cordova Depression Score 0 12/07/2018 Last EPDS Self [...] in an abandoned building, in an overnight alf, or couch-surfing.) Yes 08/03/2023 Are you worried [...] Sex Assigned at Female 06/28/2018 11:22 AM COMMERCIAL HVAC SERVICE TECHNICIAN Gender Identity Female 06/28/2018 11:22 AM COMMERCIAL HVAC SERVICE TECHNICIAN Sexual Orientation Not on file documented as of this encounter Last Filed Vital Signs Vital Sign Reading Time Taken Comments Blood Pressure 112/64 10/25/2023 2:17 PM CDT Pulse - - Temperature - - Respiratory Rate - - Oxygen Saturation - - Inhaled Oxygen Concentration - - Weight 55.6 kg (122 lb 8 oz) 10/25/2023 2:17 PM CDT Height - - Body Mass Index 21.7 10/20/2023 9:35 AM CDT documented in this encounter Patient Instructions * Patient Instructions* Jackelyn Carrera MD - 10/25/2023 2:15 PM CDT Dysmenorrhea (painful periods) - Causes of dysmenorrhea include prostaglandin mediated cramping, structural abnormalities (fibroids, polyps, adenomyosis), and endometriosis. - Scheduled Ibuprofen 600mg every 4 hours or 800mg every 6 hours OR Aleve 2 tabs every 8-12 hours throughout menses and starting the night before bleeding. Additionally, heating pads to the lower abdomen can be helpful. - Reviewed options for hormonal control, including oral contraceptive pills, patches, vaginalring, implant, shot, IUD (hormonal), as well as hysteroscopy D&C, endometrial ablation or hysterectomy, if refractory to the above methods. - Will obtain pelvic US if ongoing painful periods despite the above interventions Start your new control pills on day 4 of your next period. Return after 1 month of combined oral contraceptives use. documented in this encounter Progress Notes * Jackelyn Carrera MD - 10/25/2023 2:15 PM CDT SUBJECTIVE: CC: SEVERO Roblero is a 23 year old female who presents to clinic today for initial evaluation of HUB with regular cycle. Heavy bleeding started 9 months ago, she is now passing clots and has veryheavy bleeding for 5 days rather than x ray physician bleeding for 7 days. First 2 days are very heavy withclots, changes tampons very frequently during that time, even right after inserting a tampon it fills and she has to remove it. - hx TAB 2019 and 2020, one medical one surgical - significant increased dysmenorrhea - hx ovarian cysts, can feel them, last 2 weeks ago. - not currently on contraception. She is sexually active. Planning to start OCPs. - menarche age 11, regular until age 14 when she would occasionally miss a month. - gradual 20lb weight loss over 2 years - +acne, + coarse hair on jaw - acne persistent since high school - Patient's last menstrual period was 10/08/2023. Lab review: Hgb 12.1 10/10/23 Recent +chlamydia test, treated. Has repeat test scheduled. Problem list and histories reviewed & adjusted, as indicated. Additional history: as documented. Patient Active Problem List Diagnosis Acne vulgaris Adjustment disorder with mixed anxiety and depressed mood Blood type AB+ (normal spontaneous vaginal delivery) Atypical squamous cells of undetermined significance (ASCUS) on Papanicolaou smear of cervix Cyst of right ovary Anxiety Moderate recurrent major depression (H) Past Surgical History: Procedure Laterality Date NO HISTORY OF SURGERY Social History Tobacco Use Smoking status: Never Smokeless tobacco: Never Substance Use Topics Alcohol use: Yes Comment: 0-2 x week Problem (# of Occurrences) Relation (Name,Age of Onset) Cancer (1) Maternal Aunt Depression (1) Father Diabetes (1) Maternal Grandfather Hypertension (2) Maternal Grandmother, Maternal Grandfather Neurologic Disorder (1) Maternal Uncle: MS Breast Cancer (1) Paternal Grandmother Multiple Sclerosis (1) Maternal Grandmother Current Outpatient Medications Medication Sig Dispense Refill norethindrone-ethinyl estradiol (MICROGESTIN 1.5/30) 1.5-30 MG-MCG tablet Take 1 tablet by mouth daily 84 tablet 3 No current facility-administered medications for this visit. Allergies Allergen Reactions No Known Drug Allergy OBJECTIVE: BP 112/64 Wt 55.6 kg (122 lb 8 oz) LMP 10/08/2023 BMI 21.70 kg/m?? Const: sitting in chair in no acute distress, comfortable Eyes: no scleral icterus, EOMI CV: regular rate, well perfused Pulm: no increased work of breathing, no cough Skin: warm and dry, no rashes/lesions Psych: mood stable, appropriate affect Neuro: A+Ox3 ASSESSMENT/PLAN: Yadi Roblero is a 23 year old female here for initial evaluation of HUB. Hx of hyperandrogenism, but relatively regular cycles, PCOS still in differential, along with fibroids and adenomyosis, less likely perimenopause or hyperplasia. 1. Menorrhagia with regular cycle - US Pelvic Transabdominal and Transvaginal; Future - recently prescribed oral contraceptives but hasn't started. Plan to start on day 4 of her next menses. Return for follow up after 1 completed cycle to evaluate change in menses 2. Hyperandrogenism - DHEA sulfate; Future - Prolactin; Future - Testosterone Free and Total; Future - TSH with free T4 reflex; Future Return to clinic 4-6w. Jackelyn Carrera MD Obstetrics and Gynecology [facility] documented in this encounter Nursing Notes * Naomi Bagley CMA - 10/25/2023 2:15 PM CDT Chief Complaint Patient presents with Consult For painful and heavy/abnormal periods. Patient reports this started back in January, her periodscome around the same time each month, but the flow is irregular and she has been passing more clots. Periods last 5 days now, before they lasted 7, has a history of ovarian cysts and irregular bleeding. Last pelvic US was 03/2023 RECHECK Patient tested positive for chlamydia a week ago, and was treated. She has a recheck appointment coming up. Initial BP 112/64 Wt 55.6 kg (122 lb 8 oz) LMP 10/08/2023 BMI 21.70 kg/m?? Estimated body mass index is 21.7 kg/m?? as calculated from the following: Height as of 10/20/23: 1.6 m (5' 3). Weight as of this encounter: 55.6 kg (122 lb 8 oz). BP completed using cuff size: regular Questioned patient about current smoking habits. Pt. has never smoked. The following HM Due: NONE Naomi Bagley CMA documented in this encounter Plan of Treatment Upcoming Encounters Date Type Department Care Team (Late st Contact Info) Description 12/22/2023 11:00 AM CDT Office Visit [facility] [address] [place] [address] Jackelyn Carrera MD [address] [place] [address] Scheduled Orders Name Type Priority Associated Diagnoses Orde r Schedule US Pelvic Transabdominal and Transvaginal Imaging Routine Menorrhagia with regular cycle Expected: 01/23/2024, Expires: 04/22/2024 DHEA sulfate Lab Routine Hyperandrogenism Expected: 10/25/2023 (Approximate), Expires: 10/24/2024 Testosterone Free and Total Lab Panel Routine Hyperandrogenism Expected: 10/25/2023 (Approximate), Expires: 10/24/2024 documented as of this encounter Results * TSH with free T4 reflex (10/20/2023 10:05 AM CDT) TSH 1.83 0.30 - 4.20 uIU/mL 10/26/2023 4:39 PM CDT [facility] Blood BLOOD SPECIMEN / Unknown Venipuncture / Unknown 10/20/2023 10:05 AM CDT 10/20/2023 10:05 AM CDT Jackelyn Carrera MD LAB - BLOOD ORDERABL ES [facility] [place] [facility] [address] [facility] [place] [address], [facility] * Prolactin (10/20/2023 10:05 AM CDT) Prolactin 21 5 - 23 ng/mL 10/26/2023 6:24 PM CDT [facility] Blood BLOOD SPECIMEN / Unknown Venipuncture / Unknown 10/20/2023 10:05 AM CDT 10/20/2023 10:05 AM CDT Jackelyn Carrera MD LAB - BLOOD ORDERABL ES [facility] [address] [place] [address] documented in this encounter Visit Diagnoses Diagnosis Menorrhagia with regular cycle- Primary Excessive or frequent menstruation Hyperandrogenism Other ovarian hyperfunction documented in this encounter Additional Health Concerns Assessment Noted Time PHQ-9 Depression Total Score: 5 10/20/19 24 9:22 AM CDT documented as of this encounter Care Teams Relationship Specialist Relationship Specialty [place] [address] [place] [address] PCP - General Family Practice 11/27/18 [place] [address] [place] [address] Assigned PCP 05/11/20 Jackelyn Carrera MD [address] [place] [address] electrical supervisor 10/21/23 Litzy Vergara PA-C [address] [place] [address] Physician Voice Intercept Technician Family Medicine 10/21/23 documented as of this encounter
--- OUTSIDE RECORDS SUMMARY | 2023-11-16 17:03 | XMS_ITS | Encounter Summary ---
Author Organization [facility] Address [address] [place] [address]. [place] [address] Care Team Providers Care Histologic Technician Name Role Phone Leslie Silvestre MD Primary Care Provider [phone] Leslie Silvestre MD Unavailable [phone] Reason for Visit * Reason Onset Date Comments Results 10/11/2023 Encounter Details Date Type Department Care Team (Late st Contact Info) Description 10/11/2023 Telephone [facility] [address] [place] [address] Shyla Farah, RN Results Social History Tobacco Use Types Packs/Day Years [...] often do you attend chur ch or druze services? Never 08/03/2023 Do you belong to any clubs o r organizations such as religion groups, unions, fraternal or athletic groups, or [...] 08/03/2023 PHQ-2 Answer Date Recorded PHQ-2 Score 2 08/03/2023 [facility] [...] exercise at this level? 30 min 08/03/2023 Chandler Depression Scale Answer Date Recorded Chandler Depression Score 0 12/07/2018 Last EPDS Self [...] Sex Assigned at Female 06/28/2018 11:22 AM EDUCATIONAL PROGRAM DIRECTOR Gender Identity Female 06/28/2018 11:22 AM EDUCATIONAL PROGRAM DIRECTOR Sexual Orientation Not on file documented as of this encounter Miscellaneous Notes * Telephone Encounter - Melanie Guevara RN - 10/11/2023 1:20 PM CDT RN spoke to patient Reviewed message below from Dr. Diehl Patient's concern is with prolonged menses, labs were drawn at ER however patient did not stay for assessment Visit scheduled with Litzy Vergara, NADEEM 10/13/23 @ 1:40 Patient will need referral for OBGYN Melanie Guevara Registered Nurse [facility] * Telephone Encounter - Leslie Silvestre MD - 10/11/2023 12:02 PM CDT Her test was NEG, her blood count was normal. Her metabolic panel was normal and her urine test looks like there was blood in it (this can be from her period possibly). If she is still having issues we should see her * Telephone Encounter - Shlya Farah RN - 10/11/2023 10:15 AM CDT Patient calling. States that was at the ED yesterday but left without being seen. Stated she had some blood work done and wants to know what the results mean. Advised that a provider will need to interpret her lab results. Patient transferred to her primary clinic for further assistance. SHYLA FARAH RN documented in this encounter Plan of Treatment Upcoming Encounters Date Type Department Care Team (Late st Contact Info) Description 12/22/2023 11:00 AM CDT Office Visit [facility] [address] [place] [phone] Jackelyn Carrera MD [address] [place] [address] documented as of this encounter Visit Diagnoses Not on filedocumented in this encounter Additional Health Concerns Assessment Noted Time PHQ-9 Depression Total Score: 9 08/03/19 24 10:57 AM CDT documented as of this encounter Care Teams Histologic Technician Relationship Specialty Start [place] [address] [place] [address] PCP - General Family Practice 11/27/18 [place] [address] [place] [address] Assigned PCP 05/11/20 documented as of this encounter
--- OUTSIDE RECORDS SUMMARY | 2023-11-16 17:03 | XMS_ITS | Encounter Summary ---
Author Organization [facility] Address [address] [place] [address]. [place] [address] Care Team Providers Care Surveillance Observer Name Role Phone Leslie Silvestre MD Primary Care Provider [phone] Leslie Silvestre MD Unavailable [phone] Reason for Referral * Consultation (Routine: Next available opening) - Pending Review Specialty Diagnoses / Procedures Referred By Abelardo farr Referred To Contact Ophthalmology Diagnoses Vitreous floaters of both eyes Litzy Vergara PA-C [address] [place] [id number] Referral ID Status Reason Start Date Expiration Date V isits Requested Visits Authorized [id number] Pending Review 10/20/2023 10/19/2024 1 1 Question Answer Referral Type: Optometry/Ophthalmology Reason for Referral: Flashes/Floaters Scheduling Instructions: [facility] will call you to coordinate your care as prescribed by your provider. If you don't hear from a admissions representative within 2 business days, please call . Comments Please be aware that coverage of these services is subject to the terms and limitations of your health insurance plan. Call member services at your health plan with any benefit or coverage questions. [facility] will call you to coordinate your care as prescribed by your provider. If you don't hear from a admissions representative within 2 business days, please call . * Consultation (Routine: Next available opening) - Pending Review Specialty Diagnoses / Procedures Referred By Abelardo farr Referred To Contact code number stamper Diagnoses Menorrhagia with regular cycle Litzy Vergara PA-C [address] [place] [address] Referral ID Status Reason Start Date Expiration Date V isits Requested Visits Authorized [id number] Pending Review 10/20/2023 10/19/2024 1 1 Question Answer Reason for Referral: Bleeding Scheduling Instructions: [facility] will call you to coordinate your care as prescribed by your provider. If you don't hear from a admissions representative within 2 business days, please call . Comments Please be aware that coverage of these services is subject to the terms and limitations of your health insurance plan. Call member services at your health plan with any benefit or coverage questions. [facility] will call you to coordinate your care as prescribed by your provider. If you don't hear from a admissions representative within 2 business days, please call . Reason for Visit * Reason Comments ER F/U 10/10/23 visit to [facility] referral to [facility] [facility], Fx diabetes-maternal Encounter Details Date Type Department Care Team (Latest Contact Info) Description 10/20/2023 9:30 AM CDT Office Visit [facility] [id number] [place] [phone] Litzy Vergara PA-C [address] [place] [address] Menorrhagia with regular cycle (Primary Dx); Vitreous floaters of both eyes; Family history of diabetes mellitus; Encounter for other contraceptive management; Moderate recurrent major depression (H); Hyperandrogenism Social History Tobacco Use Types Packs/Day [...] often do you attend chur ch or confucianism services? Never 08/03/2023 Do you belong to [...] Answer Date Recorded PHQ-2 Score 0 10/20/2023 [facility] Occupat ional [...] exercise at this level? 30 min 08/03/2023 Henderson Depression Scale Answer Date Recorded Henderson Depression Score 0 12/07/2018 Last EPDS Self [...] in an abandoned building, in an overnight half-way, or couch-surfing.) Yes 08/03/2023 Are you worried [...] Sex Assigned at Female 06/28/2018 11:22 AM MANUFACTURING MANAGEMENT ASSOCIATE Gender Identity Female 06/28/2018 11:22 AM MANUFACTURING MANAGEMENT ASSOCIATE Sexual Orientation Not on file documented as of this encounter Last Filed Vital Signs Vital Sign Reading Time Taken Comments Blood Pressure 118/72 10/20/2023 9:35 AM CDT Pulse 88 10/20/2023 9:35 AM CDT Temperature 36.8 ??C (98.2 ??F) 10/20/2023 9:35 AM CD T Respiratory Rate 14 10/20/2023 9:35 AM CDT Oxygen Saturation 99% 10/20/2023 9:35 AM CDT Inhaled Oxygen Concentration - - Weight 54.6 kg (120 lb 6.4 oz) 10/20/2023 9:35 A M CDT Height 160 cm (5' 3) 10/20/2023 9:35 AM CDT Body Mass Index 21.33 10/20/2023 9:35 AM CDT documented in this encounter Progress Notes * Litzy Vergara PA-C - 10/20/2023 9:30 AM CDT Assessment & Plan Menorrhagia with regular cycle Patient seen in the ER recently and urinalysis showed blood. This was likely related to the vaginalbleeding the patient was having at the time. We will recheck urinalysis today. Patient reports no further vaginal bleeding currently. She denies any dysuria or urinary symptoms. Of note patient was just seen and treated for chlamydia. Of note patient does have a recent ultrasound of the pelvis. - Director Informatics Lsat Instructor Referral; Future - UA Macroscopic with reflex to Microscopic and Culture - Lab Collect; Future - UA Macroscopic with reflex to Microscopic and Culture - Lab Collect - UA Microscopic with Reflex to Culture Vitreous floaters of both eyes Patient noting floaters in the eyes. I recommended she follow-up with the eye doctor for further evaluation. - Adult Eye Lsat Instructor Referral; Future Family history of diabetes mellitus Patient has history of diabetes in the family. A1c obtained today and is normal. - Hemoglobin A1c; Future - Extra Green Top Tube (LAB USE ONLY) - Extra Purple Top EDTA (LAB USE ONLY) - Hemoglobin A1c Encounter for other contraceptive management Patient has been off oral control for 8 months or more. This was restarted for her today. Kaylee plan on following up with [employer] [facility] regarding her bleeding. - norethindrone-ethinyl estradiol (MICROGESTIN 1.5/30) 1.5-30 MG-MCG tablet; Take 1 tablet by mouthdaily Moderate recurrent major depression (H) Patient is no longer taking Lexapro. She reports she is seeing a therapist and has a visit with a psychiatrist upcoming. In general she feels her mood is stable. MED REC REQUIRED Post Medication Reconciliation Status: Discharge medications reconciled and changed, see notes/orders Steve Grullon is a 23 year old, presenting for the following health issues: ER F/U (10/10/23 visit to [facility]/Needing referral to [employer], Fx diabetes-maternal) 10/20/2023 9:33 AM Additional Questions Roomed by Treva Accompanied by Self HPI ED/UC Followup: Facility: [facility] Date of visit: 10/10/2023 Reason for visit: Abnormal bleeding/Periods Current Status: Not bleeding She reports since last Fall she has had more bleeding (some mucous like bloody discharge and more painful menstrual periods). She reports typically her periods are 2 days of the bloody mucous like discharge then The patient also reports seeing more floaters in her vision recently. Objective BP 118/72 (BP Location: Left arm, Patient Position: Sitting, Cuff Size: Adult Regular) Pulse 88 Temp 98.2 ??F (36.8 ??C) (Oral) Resp 14 Ht 1.6 m (5' 3) Wt 54.6 kg (120 lb 6.4 oz) LMP 10/08/2023 SpO2 99% BMI 21.33 kg/m?? Body mass index is 21.33 kg/m??. Physical Exam GENERAL: No acute distress HEENT: Normocephalic NEURO: Alert and non-focal Results for orders placed or performed in visit on 10/20/23 (from the past 24 hour(s)) Extra Green Top Tube (LAB USE ONLY) Result Value Ref Range Hold Specimen JIC Extra Purple Top EDTA (LAB USE ONLY) Result Value Ref Range Hold Specimen JIC Hemoglobin A1c Result Value Ref Range Hemoglobin A1C 5.5 0.0 - 5.6 % UA Macroscopic with reflex to Microscopic and Culture - Lab Collect Specimen: Urine, Clean Catch Result Value Ref Range Color Urine Yellow Colorless, Straw, Light Yellow, Yellow Appearance Urine Slightly Cloudy (A) Clear Glucose Urine Negative Negative mg/dL Bilirubin Urine Negative Negative Ketones Urine Trace (A) Negative mg/dL Specific [place] Urine 1.025 1.003 - 1.035 Blood Urine Negative Negative pH Urine 7.0 5.0 - 7.0 Protein Albumin Urine Negative Negative mg/dL Urobilinogen Urine 0.2 0.2, 1.0 E.U./dL Nitrite Urine Negative Negative Leukocyte Esterase Urine Negative Negative UA Microscopic with Reflex to Culture Result Value Ref Range Bacteria Urine Many (A) None Seen /HPF RBC Urine 0-2 0-2 /HPF /HPF WBC Urine 0-5 0-5 /HPF /HPF Squamous Epithelials Urine Many (A) None Seen /LPF Narrative Urine Culture not indicated Signed Electronically by: Litzy Vergara PA-C Answers submitted by the patient for this visit: Patient Health Questionnaire (Submitted on 10/20/2023) If you checked off any problems, how difficult have these problems made it for you to do your work,take care of things at home, or get along with other people?: Somewhat difficult PHQ9 TOTAL SCORE: 5 documented in this encounter Miscellaneous Notes * Result Encounter Note - Jackelyn Carrera MD - 10/20/2023 9:30 AM CDT Results within normal limits, sent via PANOSOL. Jackelyn Carrera MD documented in this encounter Plan of Treatment Upcoming Encounters Date Type Department Care Team (Late st Contact Info) Description 12/22/2023 11:00 AM CDT Office Visit [facility] [address] [place] [phone] Jackleyn Carrera MD [address] [place] [address] Scheduled Referrals Name Type Priority Associated Diagnoses Orde r Schedule Director Informatics Lsat Instructor Referral Referral Routine: Next available opening Menorrhagia with regular cycle Expected: 10/20/2023 (Approximate), Expires: 10/19/2024 Adult Eye Lsat Instructor Referral Referral Routine: Next available opening Vitreous floaters of both eyes Expected: 10/20/2023 (Approximate), Expires: 10/19/2024 documented as of this encounter Procedures Procedure Name Priority Date/Time Associated Diagnosis Comments UA MICROSCOPIC WITH REFLEX TO CULTURE Routine 10/20/2023 10:11 AM CDT Menorrhagia with regular cycle UA MACROSCOPIC WITH REFLEX TO MICRO AND CULTURE Routine 10/20/2023 10:11 AM CDT Menorrhagia with regular cycle EXTRA GREEN TOP TUBE (LAB USE ONLY) Routine 10/20/2023 10:05 AM CDT Family history of diabetes mellitus EXTRA PURPLE TOP EDTA (LAB USE ONLY) Routine 10/20/2023 10:05 AM CDT Family history of diabetes mellitus TSH WITH FREE T4 REFLEX Add-On 10/20/2023 10:05 AM CDT Hyperandrogenism PROLACTIN Add-On 10/20/2023 10:05 AM CDT Hyperandrogenism HEMOGLOBIN A1C Routine 10/20/2023 10:05 AM CDT Family history of diabetes mellitus documented in this encounter Results * (ABNORMAL) UA Microscopic with Reflex [...] indicated Litzy Vergara PA-C LAB - URINE BRETTA TARIKS CR LABORATORY [facility] [address] [facility] (no room number, 1st floor of clinic) [place] [address], [facility] [phone] * (ABNORMAL) UA Macroscopic with reflex to [...] 10/20/2023 10:20 AM CDT CR LABORATORY Specific [place] Urine 1.025 1.003 - 1.035 10/20/2023 10:20 [...] LAB - URINE ORDERA BLES CR LABORATORY [facility] [id number] [place] [address] Lab (no room number, 1st floor of clinic) [place] [address], [facility] [phone] * Prolactin (10/20/2023 10:05 AM CDT) Prolactin 21 5 - 23 ng/mL 10/26/2023 6:24 PM CDT UU LABORATORY Blood BLOOD SPECIMEN / Unknown Venipuncture / Unknown 10/20/2023 10:05 AM CDT 10/20/2023 10:05 AM CDT Jackelyn Carrera MD LAB - BLOOD ORDERABL ES UU LABORATORY [facility] [place] [facility] [address] [facility], [address] [place] [address], [place] * TSH with free T4 reflex (10/20/2023 10:05 AM CDT) TSH 1.83 0.30 - 4.20 uIU/mL 10/26/2023 4:39 PM CDT [facility]U LABORATORY Blood BLOOD SPECIMEN / Unknown Venipuncture / Unknown 10/20/2023 10:05 AM CDT 10/20/2023 10:05 AM CDT Jackelyn Carrera MD LAB - BLOOD ORDERABL ES UU LABORATORY [facility] [place] [facility] [address] [facility], [address] [place] [address], [facility] * Extra Purple Top EDTA (LAB USE ONLY) (10/20/2023 10:05 AM CDT) Hold Specimen [facility] 10/20/2023 11:17 AM CDT CR LABORATORY Blood BLOOD SPECIMEN / Unknown Venipuncture / Unknown 10/20/2023 10:05 AM CDT 10/20/2023 10:05 AM CDT Litzy Vergara PA-C LAB - BLOOD ORDERA BLES CR LABORATORY [facility] [address] [facility] (no room number, 1st floor of clinic) [place] [address], [facility] [phone] * Extra Green Top Tube (LAB USE ONLY) (10/20/2023 10:05 AM CDT) Hold Specimen [facility] 10/20/2023 11:17 AM CDT CR LABORATORY Blood BLOOD SPECIMEN / Unknown Venipuncture / Unknown 10/20/2023 10:05 AM CDT 10/20/2023 10:05 AM CDT Litzy Vergara PA-C LAB - BLOOD ORDERA BLES CR LABORATORY [facility] [address] [facility] (no room number, 1st floor of clinic) [place] [address], [facility] [phone] * Hemoglobin A1c (10/20/2023 10:05 AM CDT) Hemoglobin A1C 5.5 0.0 - 5.6 % 10/20/2023 10:10 AM CDT CR LABORATORY Comment: Normal <5.7% Prediabetes 5.7-6.4% ?? Diabetes 6.5% or higher Note: Adopted from ADA consensus guidelines. Blood BLOOD SPECIMEN / Unknown Venipuncture / Unknown 10/20/2023 10:05 AM CDT 10/20/2023 10:05 AM CDT Litzy Vergara PA-C LAB - BLOOD ORDERA BLES CR LABORATORY [facility] [address] [facility] (no room number, 1st floor of clinic) [place] [address], [facility] [phone] documented in this encounter Visit Diagnoses Diagnosis Menorrhagia with regular cycle- Primary Excessive or frequent menstruation Vitreous floaters of both eyes Family history of diabetes mellitus Encounter for other contraceptive management Moderate recurrent major depression (H) Major depressive disorder, recurrent episode, moderate Hyperandrogenism Other ovarian hyperfunction documented in this encounter Additional Health Concerns Assessment Noted Time PHQ-9 Depression Total Score: 5 10/20/19 24 9:22 AM CDT documented as of this encounter Care Teams Surveillance Observer Relationship Specialty [place] [address] [place] [address] PCP - General Family Practice 11/27/18 [place] [address] [place] [address] Assigned PCP 05/11/20 documented as of this encounter
--- OUTSIDE RECORDS SUMMARY | 2023-11-16 17:03 | XMS_ITS | Encounter Summary ---
Author Organization [facility] Address [address] [place] [address] Care Team Providers Care Train Operator Name Role Phone Leslie Silvestre MD Primary Care Provider [phone] Leslie Silvestre MD Unavailable [phone] Jackelyn Carrera MD Unavailable [phone] Litzy Vergara PA-C Unavailable [phone] Jackelyn Carrera MD Unavailable [phone] Encounter Details Date Type Department Care Team (Late st Contact Info) Description 11/08/2023 MyC Medical Advice [facility] [address] [place] [address] Jackelyn Carrera MD [address] [place] [address] Social History Tobacco Use Types Packs/Day Years [...] often do you attend chur ch or church services? Never 08/03/2023 Do you belong to [...] Answer Date Recorded PHQ-2 Score 0 10/20/2023 [facility] - Occupational Stress Questionnaire Answer [...] exercise at this level? 30 min 08/03/2023 Evele[place] Depression Scale Answer Date Recorded Eveleth Depression Score 0 12/07/2018 Last EPDS Self [...] in an abandoned building, in an overnight prison, or couch-surfing.) Yes 08/03/2023 Are you worried [...] Sex Assigned at Female 06/28/2018 11:22 AM DIAMOND MOUNTER Gender Identity Female 06/28/2018 11:22 AM DIAMOND MOUNTER Sexual Orientation Not on file documented as of this encounter Plan of Treatment Upcoming Encounters Date Type Department Care Team (Late st Contact Info) Description 12/22/2023 11:00 AM CDT Office Visit [facility] [address] [place] [phone] Jackelyn Carrera MD [address] [place] [address] documented as of this encounter Visit Diagnoses Not on filedocumented in this encounter Additional Health Concerns Assessment Noted Time PHQ-9 Depression Total Score: 5 10/20/19 24 9:22 AM CDT documented as of this encounter Care Teams Train Operator Relationship Specialty [place] [address] [place] [address] PCP - General Family Practice 11/27/18 [place] [address] [place] [address] Assigned PCP 05/11/20 Jackelyn Carrera MD [address] [place] [address] grain i farmworker 10/21/23 Litzy Vergara PA-C [address] [place] [address] Physician Admissions Advisor Family Medicine 10/21/23 Jackelyn Carrera MD [address] [place] [address] Assigned OBGYN Provider 11/13/23 documented as of this encounter
--- OUTSIDE RECORDS SUMMARY | 2023-11-16 17:03 | XMS_ITS | Encounter Summary ---
Author Organization [facility] Address [address] [place] [address]. [place] [address] Care Team Providers Care Pumpman Name Role Phone Leslie Silvestre MD Primary Care Provider [phone] Leslie Silvestre MD Unavailable [phone] Encounter Details Date Type Department Care Team (Late st Contact Info) Description 10/11/2023 Telephone [facility] [id number] [place] [phone] [place] [id number] [place] [address] Social History Tobacco Use Types Packs/Day [...] Answer Date Recorded PHQ-2 Score 2 08/03/2023 [facility] - Occupational Stress Questionnaire Answer [...] exercise at this level? 30 min 08/03/2023 [place] Depression Scale Answer Date Recorded [place] Depression Score 0 12/07/2018 Last EPDS Self [...] in an abandoned building, in an overnight nursing home, or couch-surfing.) Yes 08/03/2023 Are you worried [...] Sex Assigned at Female 06/28/2018 11:22 AM MOLD MOVER Gender Identity Female 06/28/2018 11:22 AM MOLD MOVER Sexual Orientation Not on file documented as of this encounter Miscellaneous Notes * Telephone Encounter - Razia Broderick RN - 10/11/2023 11:35 AM CDT Refer to other phone message 10/11/23 * Telephone Encounter - Lucy Yan - 10/11/2023 10:22 AM CDTSummary: call back Reason for Call: Other call back Detailed comments: Pt needs some explination about results ahe received. Please call her back @ [phone] or the # below Phone Number Patient can be reached at: Cell number on file: Telephone Information: Best Time: any Can we leave a detailed message on this number? YES Call taken on 10/11/2023 at 10:23 AM by Lucy Yan documented in this encounter Plan of Treatment Upcoming Encounters Date Type Department Care Team (Late st Contact Info) Description 12/22/2023 11:00 AM CDT Office Visit [facility] [place] [address] [place] [phone] Jackelyn Carrera MD [address] [place] [address] documented as of this encounter Visit Diagnoses Not on filedocumented in this encounter Additional Health Concerns Assessment Noted Time PHQ-9 Depression Total Score: 9 08/03/19 24 10:57 AM CDT documented as of this encounter Care Teams Pumpman Relationship Specialty Start [place] [address] [place] [address] PCP - General Family Practice 11/27/18 [place] [address] [place] [address] Assigned PCP 05/11/20 documented as of this encounter
--- OUTSIDE RECORDS SUMMARY | 2023-11-16 17:04 | XMS_ITS | Encounter Summary ---
Author Organization [place] Address [address] [place] [address]. [place] [address] Care Team Providers Care Certified Midwife Name Role Phone Leslie Silvestre MD Primary Care Provider [phone] Leslie Silvestre MD Unavailable [phone] Reason for Visit * Reason Comments Vaginal Bleeding Encounter Details Date Type Department Care Team (Late st Contact Info) Description 10/10/2023 2:14 PM CDT - 10/10/2023 11:17 PM CDT Emergency [facility] [address] [place] [address] Pepito Lima MD [facility] [address] [id number] Discharge Disposition: Left Without Being Seen Social History Tobacco Use Types Packs/Day Years [...] week 08/03/2023 How often do you attend [facility] or baptism services? Never 08/03/2023 Do you belong to any clubs o r organizations such as episcopalian groups, unions, fraternal or athletic groups, or [...] Answer Date Recorded PHQ-2 Score 2 08/03/2023 [facility] [place] [facility]ational Stress Questionnaire Answer Date [...] exercise at this level? 30 min 08/03/2023 Webster Depression Scale Answer Date Recorded Webster Depression Score 0 12/07/2018 Last EPDS Self [...] Sex Assigned at Female 06/28/2018 11:22 AM TENDER LABOR Gender Identity Female 06/28/2018 11:22 AM TENDER LABOR Sexual Orientation Not on file documented as of this encounter Last Filed Vital Signs Vital Sign Reading Time Taken Comments Blood Pressure 138/71 10/10/2023 2:15 PM CDT Pulse 83 10/10/2023 2:15 PM CDT Temperature 37 ??C (98.6 ??F) 10/10/2023 2:15 PM CDT Respiratory Rate 18 10/10/2023 2:15 PM CDT Oxygen Saturation 100% 10/10/2023 2:15 PM CDT Inhaled Oxygen Concentration - - Weight - - Height - - Body Mass Index - - documented in this encounter Medications at Time of Discharge Medication Sig Dispensed Refills Start Date End Date doxycycline hyclate (VIBRAMYCIN) 100 MG capsule take 1 capsule by mouth twice daily for 7 days 10/08/2023 10/20/2023 escitalopram (LEXAPRO) 10 MG tabletIndications:Moderat e episode of recurrent major depressive disorder (H),KERWIN (generalized anxiety disorder) Take 1 tablet (10 mg) by mouth daily 30 tablet 1 02/02/2023 10/20/2023 norethindrone-ethinyl estradiol (JUNEL FE 06/11) 1-20 MG-MCG tabletIndications:Encount er for other contraceptive management Take 1 tablet by mouth daily 84 tablet 3 03/18/2022 10/20/2023 norethindrone-ethinyl estradiol (MICROGESTIN 1.5) 1.5-30 MG-MCG tabletIndications:Encount er for other contraceptive management Take 1 tablet by mouth daily 84 tablet 3 07/05/2022 10/20/2023 documented as of this encounter ED Notes * Espinoza Tuttle RN - 10/10/2023 2:16 PM CDT Patient with ongoing abnormal periods, says they have clots and are heavier. 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 Unsure of status. documented in this encounter Miscellaneous Notes * Result Encounter Note - Alek Salazar RN - 10/10/2023 11:17 PM CDT Final urine culture report is negative. Adult: Negative urine culture parameters per protocol: Any # urogenital bon, single or mixed [facility] Emergency Dept discharge antibiotic prescribed (If applicable): None Treatment recommendations per [facility] ED Lab Result Urine Culture protocol: No change in plan of care. documented in this encounter Plan of Treatment Upcoming Encounters Date Type Department Care Team (Late st Contact Info) Description 12/22/2023 11:00 AM CDT Office Visit [facility] [address] [place] [phone] Jackelyn Carrera MD [address] [place] [address] documented as of this encounter Procedures Procedure Name Priority Date/Time Associated Diagnosis Comments ROUTINE UA WITH MICROSCOPIC REFLEX TO CULTURE STAT 10/10/2023 5:28 PM CDT URINE CULTURE STAT 10/10/2023 5:28 PM CDT CBC WITH PLATELETS AND DIFFERENTIAL STAT 10/10/2023 4:27 PM CDT CBC WITH PLATELETS & DIFFERENTIAL STAT 10/10/2023 4:27 PM CDT HCG QUALITATIVE STAT 10/10/2023 4:27 PM CDT BASIC METABOLIC PANEL STAT 10/10/2023 4:27 PM CDT documented in this encounter Results * Urine Culture (10/10/2023 5:28 PM CDT) Culture 50,000-100,000 CFU/mL Mixture of urogenital bon SHARRON 10/12/2023 2:35 PM CDT [facility] Urine MID-STREAM URINE SPECIMEN / Unknown Non-blood Collection / Unknown 10/10/2023 5:28 PM CDT 10/10/2023 5:58 PM CDT Mary Israel DO LAB - MICRO GENE RAL ORDERABLES [facility] Inf. Diseases Diag. Lab [address] [facility], [address] [place], [place] [id number] * (ABNORMAL) UA with Microscopic reflex to [...] mg/dL 10/10/2023 5:58 PM CDT LABORATORY Specific [place] Urine 1.019 1.003 - 1.035 10/10/2023 5:58 [...] Israel DO LAB - URINE ROE HUGO [facility] Organization Address City/State/ZIP Co de Phone Number LABORATORY [facility] Acute Care Lab [address] 1[address] floor, [address] [place] [address], [facility] [phone] * (ABNORMAL) CBC with platelets and differential [...] CDT Mary Israel DO LAB - BLOOD ORDEugene [facility] Lab [address], [address] [place] [address], [facility] [phone] * Basic metabolic panel (10/10/2023 4:27 PM CDT) [facility] Sodium 138 135 - 145 mmol/L 10/10/2023 [...] PM CDT 10/10/2023 4:38 PM CDT Mary Nicole Israel LAB - BLOOD ARTUR [facility] Acute Care Lab [address] 1[address] floor, [address] [place] [address], [facility] [phone] * HCG QUALitative (blood) (10/10/2023 4:27 PM CDT) hCG Serum Qualitative Negative Negative SHARRON 10/10/2023 4:51 PM CDT LABORATORY Comment:This test is for scr eening purposes. Results should be interpreted along with the clinical picture. Confirmation testing is available if warranted by ordering [id number], HCG Quantitative . Blood BLOOD SPECIMEN / Unknown Venipuncture / Unknown 10/10/2023 4:27 PM CDT 10/10/2023 4:38 PM CDT Mary Israel DO LAB - BLOOD ARTUR [facility] Lab [address] 1[address] floor, [address] [place] [address], [facility] [phone] documented in this encounter Visit Diagnoses Not on filedocumented in this encounter Additional Health Concerns Assessment Noted Time PHQ-9 Depression Total Score: 9 08/03/19 24 10:57 AM CDT documented as of this encounter Care Teams Certified Midwife Relationship Specialty [place] [address] [place] [address] PCP - General Family Practice 11/27/18 [place] [address] [place] [address] Assigned PCP 05/11/20 documented as of this encounter
--- OUTSIDE RECORDS SUMMARY | 2023-11-16 17:04 | XMS_ITS | Encounter Summary ---
Author Organization [place] Address [address] [place] [address] Care Team Providers Care Type Proof Reproducer Name Role Phone [facility] Primary Care Provider Patricia Tobin MD Unavailable + Roro Garber WIRE MACHINE OPERATOR Unavailable [phone] Ref-Primary, Physician Primary Care Provider Leslie Silvestre MD Unavailable [phone] Leslie Silvestre MD Primary Care Provider [phone] Patricia Tobin MD Unavailable + Karen Miller Unavailable Unavailable Leslie Silvestre MD Unavailable [phone] Jackelyn Carrera MD Unavailable [phone] Litzy Vergara PA-C Unavailable [phone] Jackelyn Carrera MD Unavailable [phone] Reason for Visit * Reason Onset Date Comments Care 08/05/2018 palpatations Encounter Details Date Type Department Care Team (Late st Contact Info) Description 08/05/2018 MyC Medical Advice [facility] Women's [place] [address] [place] [address] Tarah Fields CNM NO INFO [...] Sex Assigned at Female 06/28/2018 11:22 AM DOOR TO DOOR LEAD GENERATION Gender Identity Female 06/28/2018 11:22 AM DOOR TO DOOR LEAD GENERATION Sexual Orientation Not on file documented as of this encounter Miscellaneous Notes * Telephone Encounter - Sridevi Valdez RN - 08/07/2018 8:31 AM CDT Do you want a referral to cardiology or for her to see IM for ekg, she has had palpitations again. Sridevi Wayne R.N. [facility] documented in this encounter Plan of Treatment Upcoming Encounters Date Type Department Care Team (Late st Contact Info) Description 12/22/2023 11:00 AM CDT Office Visit [facility] [address] [place] [address] Jackelyn Carrera MD [address] [place] [address] documented as of this encounter Visit Diagnoses Not on filedocumented in this encounter Additional Health Concerns Assessment Noted Time PHQ-9 Depression Total Score: 12 024 7:10 AM CDT documented as of this encounter Care Teams Type Proof Reproducer Relationship Specialty Start Date End Date Clinic - [facility] [address] [place] [address] PCP - General Internal Medicine 07/03/18 09/28/18 No Ref-Primary, Physician PCP - General 09/29/18 11/26/18 [place] [address] [place] [address] PCP - General Family Practice 11/27/18 Patricia Tobin MD PRIMARY ENT [address] [place] [address] Assigned PCP 06/11/18 10/14/18 Roro Garber, [facility] Clinic Traditional Maori Health Practitioner Primary Care - CC 07/26/18 [place] [address] [facility], [place] [id number] Assigned PCP 10/15/18 12/08/19 Patricia Tobin MD PRIMARY ENT [address] [place] [address] Assigned PCP 12/09/19 05/10/20 Karen Miller Personal Advocate & Liaison (PAL) Family Medicine 04/30/20 08/26/20 [place] [address] [place] [address] Assigned PCP 05/11/20 Jackelyn Carrera MD [address] [place] [address] beam department supervisor 10/21/23 Litzy Vergara, PA-C [address] [facility], [place] [id number] Physician Cuff Folder Family Medicine 10/21/23 Jackelyn Carrera MD [address] [place] [address] Assigned OBGYN Provider 11/13/23 documented as of this encounter
--- OUTSIDE RECORDS SUMMARY | 2023-11-16 17:04 | XMS_ITS | Encounter Summary ---
Author Organization [place] Address [address] [place] [address] Care Team Providers Care Bisque Placer Name Role Phone Leslie Silvestre MD Primary Care Provider [phone] Leslie Silvestre MD Unavailable [phone] Jackelyn Carrera MD Unavailable [phone] Litzy Vergara PA-C Unavailable [phone] Jackelyn Carrera MD Unavailable [phone] Encounter Details Date Type Department Care Team (Late st Contact Info) Description 11/19/2020 MyC Medical Advice [facility] Women's [address] [place] [phone] Corina Palacios Social History Tobacco Use Types [...] and Family Once a week 06/28/2019 Attends Congregation Services Never 06/28 Active Member of Clubs [...] Answer Date Recorded PHQ-2 Score 0 08/28/2020 [facility] - Occupational [...] things needed for daily living? No 06/28/2019 Jennings Depression Scale Answer Date Recorded Jennings Depression Score 0 12/07/2018 Last EPDS Self Harm Result Not on file 12/07 Education Answer Date Recorded What is the highest level of school you have completed or the highest degree you have received? 12th grade 06/28/2019 Sex and Gender Information Value Date Recorded Sex Assigned at Female 06/28/2018 11:22 AM OFFBEARER Gender Identity Female 06/28/2018 11:22 AM OFFBEARER Sexual Orientation Not on file COVID-19 Exposure [...] Description 12/22/2023 11:00 AM CDT Office Visit [facility] [address] [place] [address] Jackelyn Carrera MD [address] [place] [address] documented as of this encounter Visit Diagnoses Not on filedocumented in this encounter Additional Health Concerns Assessment Noted Time PHQ-9 Depression Total Score: 5 04/30/20 20 3:13 PM OFFBEARER documented as of this encounter Care Teams Bisque Placer Relationship Specialty Start [place] [address] [place] [address] PCP - General Family Practice 11/27/18 [place] [address] [place] [address] Assigned PCP 05/11/20 Jackelyn Carrera MD [address] [place] [address] funeral home director 10/21/23 Litzy Vergara, PARupertoC [address] [place] [address] Physician Lens Mold Setter Family Medicine 10/21/23 Jackelyn Carrera MD [address] [place] [address] Assigned OBGYN Provider 11/13/23 documented as of this encounter
--- OUTSIDE RECORDS SUMMARY | 2023-11-16 17:04 | XMS_ITS | Encounter Summary ---
Author Organization [place] Address [address] [place] [address] Care Team Providers Care Manager Rfid Name Role Phone Leslie Silvestre MD Primary Care Provider [phone] Leslie Silvestre MD Unavailable [phone] Encounter Details Date Type Department Care Team (Latest Contact Info) Description 10/10/2023 Travel Social History Tobacco Use Types Packs/Day [...] often do you attend chur ch or cheondoism services? Never 08/03/2023 Do you belong to [...] Answer Date Recorded PHQ-2 Score 2 08/03/2023 [facility] - Occupational Stress Questionnaire Answer Date [...] exercise at this level? 30 min 08/03/2023 El[place] Depression Scale Answer Date Recorded Elkins Depression Score 0 12/07/2018 Last EPDS Self [...] in an abandoned building, in an overnight penitentiary, or couch-surfing.) Yes 08/03/2023 Are you worried [...] Sex Assigned at Female 06/28/2018 11:22 AM DESIZING MACHINE OPERATOR Gender Identity Female 06/28/2018 11:22 AM DESIZING MACHINE OPERATOR Sexual Orientation Not on file documented as of this encounter Plan of Treatment Upcoming Encounters Date Type Department Care Team (Late st Contact Info) Description 12/22/2023 11:00 AM CDT Office Visit [facility] [address] [place] [address] Jackelyn Carrera MD [address] [place] [address] documented as of this encounter Visit Diagnoses Not on filedocumented in this encounter Additional Health Concerns Assessment Noted Time PHQ-9 Depression Total Score: 9 08/03/19 24 10:57 AM CDT documented as of this encounter Care Teams Manager Rfid Relationship Specialty Start [place] [address] [place] [address] PCP - General Family Practice 11/27/18 [place] [address] [place] [address] Assigned PCP 05/11/20 documented as of this encounter
--- OUTSIDE RECORDS SUMMARY | 2023-11-16 17:04 | XMS_ITS | Encounter Summary ---
Author Organization [place] Address [address] [place] [address]. [place] [address] Care Team Providers Care Referral Management Liaison Name Role Phone Leslie Silvestre MD Unavailable [phone] Leslie Silvestre MD Primary Care Provider [phone] Patricia Tobin MD Unavailable + Karen Miller Unavailable Unavailable OLelsie Espinosa MD Unavailable [phone] Jackelyn Carrera MD Unavailable [phone] Litzy Vergara PA-C Unavailable [phone] Jackelyn Carrera MD Unavailable [phone] Reason for Visit * Reason Onset Date Comments Patient Request 12/11/2018 Encounter Details Date Type Department Care Team (Late st Contact Info) Description 12/11/2018 MyC Medical Advice [facility] [address] [place] [phone] [place] Sil[place] [id number] [place] [address] Patient Request Social History Tobacco Use Types Packs/Day Years Used Date Smoking Tobacco: Never Smokeless Tobacco: Never Alcohol Use Standard Drinks/Week Comments No 0 (1 standard drink = 0.6 oz pur e alcohol) PHQ-2 Answer Date Recorded PHQ-2 Score 0 11/20/2018 [place] Depression Scale Answer Date Recorded [place] Depression Score 0 12/07/2018 Last EPDS Self Harm Result Not on file 12/07 Sex and Gender Information Value Date Recorded Sex Assigned at Female 06/28/2018 11:22 AM CHIEF LENDING OFFICER Gender Identity Female 06/28/2018 11:22 AM CHIEF LENDING OFFICER Sexual Orientation Not on file documented as of this encounter Miscellaneous Notes * Telephone Encounter - Melanie Guevara RN - 12/12/2018 7:09 AM CDT Please see my chart message and response Thank you Melanie Guevara Registered Nurse [facility] documented in this encounter Plan of Treatment Upcoming Encounters Date Type Department Care Team (Late st Contact Info) Description 12/22/2023 11:00 AM CDT Office Visit [facility] [address] [facility] [address] [place] [address] Jackelyn Carrera MD [address] [place] [address] documented as of this encounter Visit Diagnoses Not on filedocumented in this encounter Additional Health Concerns Assessment Noted Time PHQ-9 Depression Total Score: 12 024 7:10 AM CDT documented as of this encounter Care Teams Referral Management Liaison Relationship Specialty Start [place] [address] [place] [address] PCP - General Family Practice 11/27/18 [place] [address] [place] [address] Assigned PCP 10/15/18 12/08/19 Patricia Tobin MD PRIMARY [place] [address] [place] [address] Assigned PCP 12/09/19 05/10/20 Karen Miller Personal Advocate & Liaison (PAL) Family Medicine 04/30/20 08/26/20 [place] [address] [place] [address] Assigned PCP 05/11/20 Jackelyn Carrera MD [address] [place] [address] truck technician 10/21/23 Litzy Vergara PA-C [address] [place] [address] Physician Director Appointment Family Medicine 10/21/23 Jackelyn Carrera MD [address] [place] [address] Assigned OBGYN Provider 11/13/23 documented as of this encounter
--- OUTSIDE RECORDS SUMMARY | 2023-11-16 17:04 | XMS_ITS | Encounter Summary ---
Author Organization [place] Address [address] [place] [address] Care Team Providers Care Heat Plant Specialist Name Role Phone Patricia Tobin MD Unavailable + [facility] Primary Care Provider Patricia Tobin MD Unavailable + Roro Garber DRUG ABUSE WORKER Unavailable [phone] Ref-Primary, Physician Primary Care Provider Leslie Silvestre MD Unavailable [phone] Leslie Silvestre MD Primary Care Provider [phone] Patricia Tobin MD Unavailable + Karen Miller Unavailable Unavailable Leslie Silvestre MD Unavailable [phone] Jackelyn Carrera MD Unavailable [phone] Litzy Vergara PA-C Unavailable [phone] Jackelyn Carrera MD Unavailable [phone] Encounter Details Date Type Department Care Team (Late st Contact Info) Description 07/16/2018 [facility] Women's [address] [place] [address] Tarah Fields CNM NO INFO AVAILABLE 05/13/2022 Social History Tobacco Use Types Packs/Day Years Used Date Smoking Tobacco: Never Smokeless Tobacco: Never Alcohol Use Standard Drinks/Week Comments No 0 (1 standard drink = 0.6 oz pur e alcohol) PHQ-2 Answer Date Recorded PHQ-2 Score 4 07/18/2018 Comments Yes Sex and Gender Information Value Date Recorded Sex Assigned at Female 06/28/2018 11:22 AM CONSTRUCTION INSPECTOR Gender Identity Female 06/28/2018 11:22 AM CONSTRUCTION INSPECTOR Sexual Orientation Not on file documented as of this encounter Miscellaneous Notes * Telephone Encounter - Sridevi Valdez RN - 07/17/2018 8:09 AM CST See other XINGhart message. Sridevi Wayne R.N. [facility] TRUCTION INSPECTOR documented in this encounter Plan of Treatment Upcoming Encounters Date Type Department Care Team (Late st Contact Info) Description 12/22/2023 11:00 AM CDT Office Visit [facility] [address] [facility] [address] [place] [phone] Jackelyn Carrera MD [address] [place] [address] documented as of this encounter Visit Diagnoses Not on filedocumented in this encounter Additional Health Concerns Assessment Noted Time PHQ-9 Depression Total Score: 12 024 7:10 AM CDT documented as of this encounter Care Teams Heat Plant Specialist Relationship Specialty Start Date End Date Patricia Tobin MD PRIMARY ENT [address] [place] [address] PCP - Assigned PCP 05/14/18 07/25/18 [facility] [address] [place], [place] [id number] PCP - General Internal Medicine 07/03/18 09/28/18 No Ref-Primary, Physician PCP - General 09/29/18 11/26/18 [place] [address] [address] [facility] [place] [id number] PCP - General Family Practice 11/27/18 Patricia Tobin MD PRIMARY ENT [address] [place], [place] [address] Assigned PCP 06/11/18 10/14/18 Roro Garber, [facility] Clinic Stock Parts Fabricator Primary Care - CC 07/26/18 [place] [address] [place] [address] Assigned PCP 10/15/18 12/08/19 Patricia Tobin MD PRIMARY ENT [address] [place] [address] Assigned PCP 12/09/19 05/10/20 Karen Miller Personal Advocate & Liaison (PAL) Family Medicine 04/30/20 08/26/20 [place] [address] [address] [facility], [place] [address] Assigned PCP 05/11/20 Jackelyn Carrera MD [address] [place] [address] MD fire alarm mechanic 10/21/23 Litzy Vergara, MACIEJC [address] [place] [address] Physician Advanced Practice Provider Family Medicine 10/21/23 Jackelyn Carrera MD [address] [place] [address] Assigned OBGYN Provider 11/13/23 documented as of this encounter
--- OUTSIDE RECORDS SUMMARY | 2023-11-16 17:04 | XMS_ITS | Encounter Summary ---
Author Organization [place] Address [address] [place] [address]. [place] [address] Care Team Providers Care Soil Conservation Technician Name Role Phone Leslie Silvestre MD Primary Care Provider [phone] Leslie Silvestre MD Unavailable [phone] Jackelyn Carrera MD Unavailable [phone] Litzy Vergara PA-C Unavailable [phone] Jackelyn Carrera MD Unavailable [phone] Encounter Details Date Type Department Care Team (Late st Contact Info) Description 02/04/2022 MyC Medical Advice [address] [phone] Leslie Silvestre MD [address] [place] [address] Social History Tobacco Use Types Packs/Day [...] and Family Once a week 06/28/2019 Attends Christian Services Never 06/28 Active Member of Clubs [...] Answer Date Recorded PHQ-2 Score 0 08/28/2020 [facility] of Occupat ional Health - Occupational Stress [...] things needed for daily living? No 06/28/2019 [place] Depression Scale Answer Date Recorded [place] Depression Score 0 12/07/2018 Last EPDS Self Harm Result Not on file 12/07 Education Answer Date Recorded What is the highest level of school you have completed or the highest degree you have received? 12th grade 06/28/2019 Sex and Gender Information Value Date Recorded Sex Assigned at Female 06/28/2018 11:22 AM TIPPLE REPAIRER Gender Identity Female 06/28/2018 11:22 AM TIPPLE REPAIRER Sexual Orientation Not on file documented as of this encounter Miscellaneous Notes * Telephone Encounter - Veronika Gaines - 02/08/2022 4:00 PM CDT Form is completed and placed in the [employer] TC station , will wait for patient to call back to see if she would like to pick it up or wants us to fax form . Called patient LVM. Veronika Gaines Pricer * Telephone Encounter - Leslie Silvestre MD [...] Description 12/22/2023 11:00 AM CDT Office Visit [facility] [place] [address] Jackelyn Carrera MD [address] [place] [address] documented as of this encounter Visit Diagnoses Not on filedocumented in this encounter Additional Health Concerns Assessment Noted Time PHQ-9 Depression Total Score: 5 04/30/20 20 3:13 PM TIPPLE REPAIRER documented as of this encounter Care Teams Soil Conservation Technician Relationship Specialty [place] [address] [place] [address] PCP - General Family Practice 11/27/18 [place] [address] [place] [address] Assigned PCP 05/11/20 Jackelyn Carrera MD [address] [place] [address] bombsight specialist 10/21/23 Litzy Vergara PA-C [address] [place] [address] Physician Order Make Up Clerk Family Medicine 10/21/23 Jackelyn Carrera MD [address] [place] [address] Assigned OBGYN Provider 11/13/23 documented as of this encounter
--- OUTSIDE RECORDS SUMMARY | 2023-11-16 17:04 | XMS_ITS | Encounter Summary ---
Author Organization Agency Address [address] [place] [address]. [place] [address] Care Team Providers Care Lawn Service Manager Name Role Phone Leslie Silvestre MD Primary Care Provider [phone] Karen Miller Unavailable Unavailable Leslie Silvestre MD Unavailable [phone] Jackelyn Carrera MD Unavailable [phone] Litzy Vergara PA-C Unavailable [phone] Jackelyn Carrera MD Unavailable [phone] Encounter Details Date Type Department Care Team (Late st Contact Info) Description 05/29/2020 MyC Medical Advice [address] [phone] Leslie Silvestre MD [address] [place] [phone] Social History Tobacco Use Types Packs/Day Years [...] and Family Once a week 06/28/2019 Attends Caodaism Services Never 06/28 Active Member of Clubs [...] Answer Date Recorded PHQ-2 Score 2 04/30/2020 [facility] of Occupat ional Health - [...] things needed for daily living? No 06/28/2019 [place] Depression Scale Answer Date Recorded [place] Depression Score 0 12/07/2018 Last EPDS Self Harm Result Not on file 12/07 Education Answer Date Recorded What is the highest level of school you have completed or the highest degree you have received? 12th grade 06/28/2019 Sex and Gender Information Value Date Recorded Sex Assigned at Female 06/28/2018 11:22 AM SHIFT PRODUCTION ASSOCIATE Gender Identity Female 06/28/2018 11:22 AM SHIFT PRODUCTION ASSOCIATE Sexual Orientation Not on file COVID-19 Exposure Response Date Recorded In the last month, have you been in contact with someone who was confirmed or suspected to have Coronavirus / COVID-19? No / Unsure 05/29/2020 9:40 AM SHIFT PRODUCTION ASSOCIATE documented as of this encounter Miscellaneous Notes * Telephone Encounter - Evens Santana RN - 05/29/2020 5:52 PM CST Responded to patient via [email or web address], will monitor response Evens Santana RN T PRODUCTION ASSOCIATE * Telephone Encounter - Leslie Silvestre MD - 05/29/2020 5:43 PM CST I believe the control pill would be best to regulate her cycle and protect future fertility. If she is trying to conceive, I can refer her to [facility] for treatment and fertility consult T PRODUCTION ASSOCIATE documented in this encounter Plan of Treatment Upcoming Encounters Date Type Department Care Team (Late st Contact Info) Description 12/22/2023 11:00 AM CDT Office Visit [facility] [address] [place] [phone] Jackelyn Carrera MD [address] [place] [address] documented as of this encounter Visit Diagnoses Not on filedocumented in this encounter Additional Health Concerns Assessment Noted Time PHQ-9 Depression Total Score: 5 04/30/20 20 3:13 PM SHIFT PRODUCTION ASSOCIATE documented as of this encounter Care Teams Lawn Service Manager Relationship Specialty [place] [address] [place] [address] PCP - General Family Practice 11/27/18 Karen Miller Personal Advocate & Liaison (PAL) Family Medicine 04/30/20 08/26/20 [place] [address] [place] [address] Assigned PCP 05/11/20 Jackelyn Carrera MD [address] [place] [address] boiling tub operator 10/21/23 Litzy Vergara PA-C [address] [place] [address] Physician Bodily Injury Adjuster Family Medicine 10/21/23 Jackelyn Carrera MD [address] [place] [address] Assigned OBGYN Provider 11/13/23 documented as of this encounter
--- OUTSIDE RECORDS SUMMARY | 2023-11-16 17:04 | XMS_ITS | Encounter Summary ---
Author Organization [place] Address [address] [place] [address]. [place] [address] Care Team Providers Care Master Yacht Name Role Phone [facility] Primary Care Provider Patricia Tobin MD Unavailable + No Ref-Primary, Physician Primary Care Provider Leslie Silvestre MD Unavailable [phone] Leslei Silvestre MD Primary Care Provider [phone] Patricia Tobin MD Unavailable + Karen Miller Unavailable Unavailable Leslie Silvestre MD Unavailable [phone] Jackelyn Carrera MD Unavailable [phone] Litzy Vergara PA-C Unavailable Jackelyn Carrera MD Unavailable [phone] Reason for Visit * Reason Onset Date Comments MyChart Communication 09/16/2018 mel bui Encounter Details Date Type Department Care Team (Latest Contact Info) Description 09/16/2018 MyC Medical Advice [facility] [id number] [place] [phone] [place] [id number] [place] [address] MyChart Communication (arm discomfort) Social History Tobacco Use Types Packs/Day Years Used Date Smoking Tobacco: Never Smokeless Tobacco: Never Alcohol Use Standard Drinks/Week Comments No 0 (1 standard drink = 0.6 oz pur e alcohol) PHQ-2 Answer Date Recorded PHQ-2 Score 4 09/18/2018 Comments Yes Sex and Gender Information Value Date Recorded Sex Assigned at Female 06/28/2018 11:22 AM DOUGH MIXER HELPER Gender Identity Female 06/28/2018 11:22 AM DOUGH MIXER HELPER Sexual Orientation Not on file documented as of this encounter Plan of Treatment Upcoming Encounters Date Type Department Care Team (Late st Contact Info) Description 12/22/2023 11:00 AM CDT Office Visit [facility] [address] [place] [address] Jackelyn Carrera MD [address] [place] [address] documented as of this encounter Visit Diagnoses Not on filedocumented in this encounter Additional Health Concerns Assessment Noted Time PHQ-9 Depression Total Score: 12 024 7:10 AM CDT documented as of this encounter Care Teams Master Yacht Relationship Specialty Start Date End Date [facility] [address] [place] [address] PCP - General Internal Medicine 07/03/18 09/28/18 No Ref-Primary, Physician PCP - General 09/29/18 11/26/18 [place] [address] [place] [address] PCP - General Family Practice 11/27/18 Patricia Tobin MD PRIMARY ENT [address] [place] [address] Assigned PCP 06/11/18 10/14/18 [place] [address] [place] [address] Assigned PCP 10/15/18 12/08/19 Patricia Tobin MD PRIMARY ENT [address] [place] [address] Assigned PCP 12/09/19 05/10/20 Karen Miller Personal Advocate & Liaison (PAL) Family Medicine 04/30/20 08/26/20 [place] [address] [place] [address] Assigned PCP 05/11/20 Jackelyn Carrera MD [address] [place] [address] laboratory apparatus glass blower 10/21/23 Litzy Vergara PA-C [address] [place] [address] Physician Payroll Examiner Family Medicine 10/21/23 Jackelyn Carrera MD [address] [place] [address] Assigned OBGYN Provider 11/13/23 documented as of this encounter
--- OUTSIDE RECORDS SUMMARY | 2023-11-16 17:04 | XMS_ITS | Encounter Summary ---
Author Organization [place] Address [address] [place] [address]. [place] [address] Care Team Providers Care Flat Hammerer Name Role Phone [facility] Primary Care Provider Patricia Tobin MD Unavailable + No Ref-Primary, Physician Primary Care Provider Leslie Silvestre MD Unavailable [phone] Leslie Silvestre MD Primary Care Provider [phone] Patricia Tobin MD Unavailable + Karen Miller Unavailable Unavailable Leslie Silvestre MD Unavailable [phone] Jackelyn Carrera MD Unavailable [phone] Litzy Vergara PA-C Unavailable [phone] Jackelyn Carrera MD Unavailable [phone] Reason for Visit * Reason Onset Date Comments MyChart Communication 09/18/2018 left arm i ssue Encounter Details Date Type Department Care Team (Latest Contact Info) Description 09/18/2018 MyC Medical Advice M [facility] [address] [place] [address] [place] Silvestre [place] [id number] [place] [address] MyChart Communication (left arm issue) Social History Tobacco Use Types Packs/Day Years Used Date Smoking Tobacco: Never Smokeless Tobacco: Never Alcohol Use Standard Drinks/Week Comments No 0 (1 standard drink = 0.6 oz pur e alcohol) PHQ-2 Answer Date Recorded PHQ-2 Score 4 09/18/2018 Comments Yes Sex and Gender Information Value Date Recorded Sex Assigned at Female 06/28/2018 11:22 AM CHEMICAL WASTE MANAGEMENT TECHNICIAN Gender Identity Female 06/28/2018 11:22 AM CHEMICAL WASTE MANAGEMENT TECHNICIAN Sexual Orientation Not on file documented as of this encounter Plan of Treatment Upcoming Encounters Date Type Department Care Team (Late st Contact Info) Description 12/22/2023 11:00 AM CDT Office Visit [facility]'s [address] [place] [address] Jackelyn Carrera MD [address] [place] [address] documented as of this encounter Visit Diagnoses Not on filedocumented in this encounter Additional Health Concerns Assessment Noted Time PHQ-9 Depression Total Score: 12 024 7:10 AM CDT documented as of this encounter Care Teams Flat Hammerer Relationship Specialty Start Date End Date [facility] [address] [place] [address] PCP - General Internal Medicine 07/03/18 09/28/18 No Ref-Primary, Physician PCP - General 09/29/18 11/26/18 [place] [address] [place], [place] [id number] PCP - General Family Practice 11/27/18 Patricia Tobin MD PRIMARY ENT [address] [place] [address] Assigned PCP 06/11/18 10/14/18 [place] [address] [place], [place] [address] Assigned PCP 10/15/18 12/08/19 Patricia Tobin MD PRIMARY ENT [address] [place] [address] Assigned PCP 12/09/19 05/10/20 Karen Miller Personal Advocate & Liaison (PAL) Family Medicine 04/30/20 08/26/20 [place] [address] [place], [place] [address] Assigned PCP 05/11/20 Jackelyn Carrera MD [address] [place] [address] ed physicians 10/21/23 Litzy Vergara PA-C [address] [place] [address] Physician Broiler Supervisor Family Medicine 10/21/23 Jackelyn Carrera MD [address] [place] [address] Assigned OBGYN Provider 11/13/23 documented as of this encounter
--- OUTSIDE RECORDS SUMMARY | 2023-11-16 17:04 | XMS_ITS | Encounter Summary ---
Author Organization [place] Address [address] [place] [address] Care Team Providers Care Windows Phone Developer Name Role Phone Patricia Tobin MD Unavailable + [facility] Primary Care Provider Patricia Tobin MD Unavailable + Roro Garber POLE SETTER Unavailable [phone] No Ref-Primary, Physician Primary Care Provider Leslie Silvestre MD Unavailable [phone] Leslie Silvestre MD Primary Care Provider [phone] Patricai Tobin MD Unavailable + Karen Miller Unavailable Unavailable Leslie Silvestre MD Unavailable [phone] Jackelyn Carrera MD Unavailable [phone] Litzy Vergara PA-C Unavailable [phone] Jackelyn Carrera MD Unavailable [phone] Reason for Visit * Reason Onset Date Comments Care 07/15/2018 DON[place] Encounter Details Date Type Department Care Team (Late st Contact Info) Description 07/15/2018 MyC Medical Advice [facility] [address] [place] [address] Tarah Fields CNM NO INFO AVAILABLE 05/13/2022 [...] Sex Assigned at Female 06/28/2018 11:22 AM FERMENTER WINE Gender Identity Female 06/28/2018 11:22 AM FERMENTER WINE Sexual Orientation Not on file documented as of this encounter Plan of Treatment Upcoming Encounters Date Type Department Care Team (Late st Contact Info) Description 12/22/2023 11:00 AM CDT Office Visit [facility] [address] [facility] [address] [place] [address] Jackelyn Carrera MD [address] [place] [address] documented as of this encounter Visit Diagnoses Not on filedocumented in this encounter Additional Health Concerns Assessment Noted Time PHQ-9 Depression Total Score: 12 024 7:10 AM CDT documented as of this encounter Care Teams Windows Phone Developer Relationship Specialty Start Date End Date Patricia Tobin MD PRIMARY ENT [address] [facility] [address] [place] [address] PCP - Assigned PCP 05/14/18 07/25/18 [facility] [address] [place], [place] [address] PCP - General Internal Medicine 07/03/18 09/28/18 No Ref-Primary, Physician PCP - General 09/29/18 11/26/18 [place] [address] [facility] [place] [address] PCP - General Family Practice 11/27/18 Patricia Tobin MD PRIMARY ENT [address] [place], [place] [address] Assigned PCP 06/11/18 10/14/18 Roro Garber, [facility] Clinic Zipper Setter Primary Care - CC 07/26/18 [place] [address] [facility], [place] [address] Assigned PCP 10/15/18 12/08/19 Patricia Tobin MD PRIMARY ENT [address] [place] [address] Assigned PCP 12/09/19 05/10/20 Karen Miller Personal Advocate & Liaison (PAL) Family Medicine 04/30/20 08/26/20 [place] [address] [place] [address] Assigned PCP 05/11/20 Jackelyn Carrera MD [address] [place] [address] sporting goods sales associate 10/21/23 Litzy Vergara, MACIEJC [address] [place], [place] [address] Physician Lead Sewage Plant Operator Family Medicine 10/21/23 Jackelyn Carrera MD [address] [place], [place] [address] Assigned OBGYN Provider 11/13/23 documented as of this encounter
--- OUTSIDE RECORDS SUMMARY | 2023-11-16 17:04 | XMS_ITS | Encounter Summary ---
Author Organization [place] Address [address] [place] [address] Care Team Providers Care Matrix Bath Attendant Name Role Phone Leslie Silvestre MD Primary Care Provider [phone] Leslie Silvestre MD Unavailable [phone] Jackelyn Carrera MD Unavailable [phone] iLtzy Vergara PA-C Unavailable [phone] Jackelyn Carrera MD Unavailable [phone] Encounter Details Date Type Department Care Team (Late st Contact Info) Description 04/20/2021 MyC Medical Advice [address] [place] [phone] Liz Stern, RN Social History Tobacco [...] and Family Once a week 06/28/2019 Attends Church Services Never 06/28 Active Member of Clubs [...] Answer Date Recorded PHQ-2 Score 0 08/28/2020 [facility] of Occupat ional Health - [...] things needed for daily living? No 06/28/2019 [place] Depression Scale Answer Date Recorded [place] Depression Score 0 12/07/2018 Last EPDS Self Harm Result Not on file 12/07 Education Answer Date Recorded What is the highest level of school you have completed or the highest degree you have received? 12th grade 06/28/2019 Sex and Gender Information Value Date Recorded Sex Assigned at Female 06/28/2018 11:22 AM MEDICAL SCIENCE LIAISON Gender Identity Female 06/28/2018 11:22 AM MEDICAL SCIENCE LIAISON Sexual Orientation Not on file COVID-19 Exposure Response Date Recorded In the last month, have you been in contact with someone who was confirmed or suspected to have Coronavirus / COVID-19? No / Unsure 04/23/2021 11:47 AM MEDICAL SCIENCE LIAISON documented as of this encounter Plan of Treatment Upcoming Encounters Date Type Department Care Team (Late st Contact Info) Description 12/22/2023 11:00 AM CDT Office Visit [facility] [address] [place] [address] Jackelyn Carrera MD [address] [place] [address] documented as of this encounter Visit Diagnoses Not on filedocumented in this encounter Additional Health Concerns Assessment Noted Time PHQ-9 Depression Total Score: 5 04/30/20 20 3:13 PM MEDICAL SCIENCE LIAISON documented as of this encounter Care Teams Matrix Bath Attendant Relationship Specialty [place] [address] [place] [address] PCP - General Family Practice 11/27/18 [place] [address] [place] [address] Assigned PCP 05/11/20 Jackelyn Carrera MD [address] [place] [address] account manager education 10/21/23 Litzy Vergara, PARupertoC [address] [place] [address] Physician Coldfusion Family Medicine 10/21/23 Jackelyn Carrera MD [address] [place] [address] Assigned OBGYN Provider 11/13/23 documented as of this encounter
--- OUTSIDE RECORDS SUMMARY | 2023-11-16 17:04 | XMS_ITS | Encounter Summary ---
Author Organization [place] Address [address] [place] [address]. [place] [address] Care Team Providers Care Pony Ride Operator Name Role Phone Leslie Silvestre MD Primary Care Provider [phone] Karen Miller Unavailable Unavailable Leslie Silvestre MD Unavailable [phone] Jackelyn Carrera MD Unavailable [phone] Litzy Vergara PA-C Unavailable [phone] Jackelyn Carrera MD Unavailable [phone] Reason for Visit * Reason Onset Date Comments Patient Request 05/14/2020 Encounter Details Date Type Department Care Team (Late st Contact Info) Description 05/14/[address] [facility] [id number] [place] [phone] [place] [id number] [place] [address] [id number] Patient Request Social History Tobacco Use Types [...] and Family Once a week 06/28/2019 Attends Muslim Services Never 06/28 Active Member of Clubs [...] Answer Date Recorded PHQ-2 Score 2 04/30/2020 [facility] of Occupat ional Health - Occupational [...] things needed for daily living? No 06/28/2019 [place] Depression Scale Answer Date Recorded [place] Depression Score 0 12/07/2018 Last EPDS Self Harm Result Not on file 12/07 Education Answer Date Recorded What is the highest level of school you have completed or the highest degree you have received? 12th grade 06/28/2019 Sex and Gender Information Value Date Recorded Sex Assigned at Female 06/28/2018 11:22 AM ASSISTANT SHIFT SUPERVISOR Gender Identity Female 06/28/2018 11:22 AM ASSISTANT SHIFT SUPERVISOR Sexual Orientation Not on file COVID-19 Exposure Response Date Recorded In the last month, have you been in contact with someone who was confirmed or suspected to have Coronavirus / COVID-19? No / Unsure 05/13/2020 11:14 AM ASSISTANT SHIFT SUPERVISOR documented as of this encounter Miscellaneous Notes * Telephone Encounter - Alondra Florentino RN - 05/15/2020 7:[address] Silvestre- see rag & bonet message below. Please advise. Alondra Florentino RN STANT SHIFT SUPERVISOR documented in this encounter Plan of Treatment Upcoming Encounters Date Type Department Care Team (Late st Contact Info) Description 12/22/2023 11:00 AM CDT Office Visit [facility] [address] [place] [address] [place] [address] Jackelyn Carrera MD [address] [place], [place] [address] documented as of this encounter Visit Diagnoses Not on filedocumented in this encounter Additional Health Concerns Assessment Noted Time PHQ-9 Depression Total Score: 5 04/30/20 20 3:13 PM ASSISTANT SHIFT SUPERVISOR documented as of this encounter Care Teams Pony Ride Operator Relationship Specialty Start [place] [address] [place] [address] PCP - General Family Practice 11/27/18 Karen Miller Personal Advocate & Liaison (PAL) Family Medicine 04/30/20 08/26/20 [place] [address] [place] [address] Assigned PCP 05/11/20 Jackelyn Carrera MD [address] [place] [address] template storage clerk 10/21/23 Litzy Vergara, MYRA [address] [place] [address] Physician Strip Mill Operator Family Medicine 10/21/23 Jackelyn Carrera MD [address] [place] [address] Assigned OBGYN Provider 11/13/23 documented as of this encounter
--- OUTSIDE RECORDS SUMMARY | 2023-11-16 17:04 | XMS_ITS | Encounter Summary ---
Author Organization [place] Address [address] [place] [address]. [place] [address] Care Team Providers Care Cook Fishing Vessel Name Role Phone [facility] Primary Care Provider Patricia Tobin MD Unavailable + No Ref-Primary, Physician Primary Care Provider Leslie Silvestre MD Unavailable [phone] Leslie Silvestre MD Primary Care Provider [phone] Patricia Tobin MD Unavailable + Karen Miller Unavailable Unavailable Leslie Silvestre MD Unavailable [phone] Jackelyn Carrera MD Unavailable [phone] Litzy Vergara PA-C Unavailable Jackelyn Carrera MD Unavailable [phone] Reason for Visit * Reason Onset Date Comments MyChart Communication 09/18/2018 update 08/22 12/08 MyChart message left arm discomfort Encounter Details Date Type Department Care Team (Latest Contact Info) Description 09/18/2018 MyC Medical Advice [facility] [id number] [place] [phone] Leslie Silvestre MD [address] [place] [address] MyChart Communication (update 09/16/18 MyC... Social History Tobacco Use Types Packs/Day Years Used Date Smoking Tobacco: Never Smokeless Tobacco: Never Alcohol Use Standard Drinks/Week Comments No 0 (1 standard drink = 0.6 oz pur e alcohol) PHQ-2 Answer Date Recorded PHQ-2 Score 4 09/18/2018 Comments Yes Sex and Gender Information Value Date Recorded Sex Assigned at Female 06/28/2018 11:22 AM INSURANCE WRITER Gender Identity Female 06/28/2018 11:22 AM INSURANCE WRITER Sexual Orientation Not on file documented as of this encounter Plan of Treatment Upcoming Encounters Date Type Department Care Team (Late st Contact Info) Description 12/22/2023 11:00 AM CDT Office Visit [facility] [address] [place] [address] Jackelyn Carrera MD [address] [place] [address] documented as of this encounter Visit Diagnoses Not on filedocumented in this encounter Additional Health Concerns Assessment Noted Time PHQ-9 Depression Total Score: 12 024 7:10 AM CDT documented as of this encounter Care Teams Cook Fishing Vessel Relationship Specialty Start Date End Date [facility] [address] [place] [address] PCP - General Internal Medicine 07/03/18 09/28/18 No Ref-Primary, Physician PCP - General 09/29/18 11/26/18 [place] [address] [place], [place] [id number] PCP - General Family Practice 11/27/18 Patricia Tobin MD PRIMARY ENT [address] [facility] [address] [place] [address] Assigned PCP 06/11/18 10/14/18 [place] [address] [place], [place] [id number] Assigned PCP 10/15/18 12/08/19 Patricia Tobin MD PRIMARY ENT [address] [facility] [address] [place] [address] Assigned PCP 12/09/19 05/10/20 Karen Miller Personal Advocate & Liaison (PAL) Family Medicine 04/30/20 08/26/20 [place] [address] [place], [place] [id number] Assigned PCP 05/11/20 Jackelyn Carrera MD [address] [place] [address] technician 10/21/23 Litzy Vergara, PARupertoC [address] [place] [address] Physician Tank Filler Family Medicine 10/21/23 Jackelyn Carrera MD [address] [place] [address] Assigned OBGYN Provider 11/13/23 documented as of this encounter
--- OUTSIDE RECORDS SUMMARY | 2023-11-16 17:04 | XMS_ITS | Encounter Summary ---
Author Organization [place] Address [address] [place] [address] Care Team Providers Care Junction Maker Name Role Phone [facility] Primary Care Provide r No Ref-Primary, Physician Primary Care Provider Natasha Horta APRN MAPPING ENGINEER Unavailable + Patricia Tobin MD Unavailable + [facility] Primary Care Provider Patricia Tobni MD Unavailable + Roro Garber ENERGY CONSERVATION TECHNICIAN Unavailable [phone] No Ref-Primary, Physician Primary Care Provider Leslie Silvestre MD Unavailable [phone] Leslie Silvestre MD Primary Care Provider [phone] Patricia Tobin MD Unavailable + Karen Miller Unavailable Unavailable Leslie Silvestre MD Unavailable [phone] Jackelyn Carrera MD Unavailable [phone] Litzy Vergara PA-C Unavailable [phone] Jackelyn Carrera MD Unavailable [phone] Reason for Visit * Reason Onset Date Comments Medication Question 06/02/2017 Lexapro, Santiago rax Encounter Details Date Type Department Care Team (Late st Contact Info) Description 06/02/2017 MyC Medical Advice [facility], [address] [place] [phone] Gonzalez Catalan PA-C [address] [place] [address] Medication Question (Lexapro, Atarax) Social History Tobacco Use Types Packs/Day Years Used Date Smoking Tobacco: Never Smokeless Tobacco: Never Alcohol Use Standard Drinks/Week Comments No 0 (1 standard drink = 0.6 oz pur e alcohol) Sex and Gender Information Value Date Recorded Sex Assigned at Female 06/28/2018 11:22 AM LEAD GENERATOR Gender Identity Female 06/28/2018 11:22 AM LEAD GENERATOR Sexual Orientation Not on file documented as of this encounter Plan of Treatment Upcoming Encounters Date Type Department Care Team (Late st Contact Info) Description 12/22/2023 11:00 AM CDT Office Visit [facility] [address] [place] [phone] Jackelyn Carrera MD [address] [place] [address] documented as of this encounter Visit Diagnoses Not on filedocumented in this encounter Care Teams Junction Maker Relationship Specialty Start Date End Date [facility] [place], [place] [id number] PCP - General 05/28/17 03/29/18 No Ref-Primary, Physician PCP - General 03/30/18 07/02/18 Natasha Horta, ASSOCIATE PROPERTY MANAGER MAPPING ENGINEER [address] [place] [id number] PCP - Assigned PCP 02/12/18 05/13/18 Patricia Tobin MD PRIMARY ENT [address] [place] [address] PCP - Assigned PCP 05/14/18 07/25/[address] [id number] PCP - General Internal Medicine 07/03/18 09/28/18 No Ref-Primary, Physician PCP - General 09/29/18 11/26/18 [place] [address] [place], [place] [id number] PCP - General Family Practice 11/27/18 Patricia Tobin MD PRIMARY ENT [address] [place] [address] Assigned PCP 06/11/18 10/14/18 Roro Garber, [facility] Head Sawyer Automatic Primary Care - CC 07/26/18 [place] [address] [place] [address] Assigned PCP 10/15/18 12/08/19 Patricia Tobin MD PRIMARY ENT [address] [place] [address] Assigned PCP 12/09/19 05/10/20 Karen Miller Personal Advocate & Liaison (PAL) Family Medicine 04/30/20 08/26/20 [place] [address] [place] [address] Assigned PCP 05/11/20 Jackelyn Carrera MD [address] [place] [address] interactive media designer 10/21/23 Litzy Vergara, MACIEJC [address] [place] [address] Physician Insecticide Supervisor Family Medicine 10/21/23 Jackelyn Carrera MD [address] [place] [address] Assigned OBGYN Provider 11/13/23 documented as of this encounter
--- OUTSIDE RECORDS SUMMARY | 2023-11-16 17:04 | XMS_ITS | Encounter Summary ---
Author Organization [place] Address [address] [place] [address]. [place] [address] Care Team Providers Care Early Morning Babysitter Name Role Phone Leslie Silvestre MD Primary Care Provider [phone] Leslie Silvestre MD Unavailable [phone] Jackelyn Carrera MD Unavailable [phone] Litzy Vergara PA-C Unavailable [phone] Jackelyn Carrera MD Unavailable [phone] Reason for Visit * Reason Onset Date Comments MyChart Communication 11/12/2020 Encounter Details Date Type Department Care Team (Latest Contact Info) Description 11/12/2020 MyC Medical Advice [address] [phone] [place] [id number] [place] [phone] MyChart Communication Social History Tobacco Use Types [...] Recorded PHQ-2 Score 0 08/28/2020 [facility] [...] things needed for daily living? No 06/28/2019 Gibbon Depression Scale Answer Date Recorded Gibbon Depression Score 0 12/07/2018 Last EPDS Self Harm Result Not on file 12/07 Education Answer Date Recorded What is the highest level of school you have completed or the highest degree you have received? 12th grade 06/28/2019 Sex and Gender Information Value Date Recorded Sex Assigned at Female 06/28/2018 11:22 AM FASHION COORDINATOR Gender Identity Female 06/28/2018 11:22 AM FASHION COORDINATOR Sexual Orientation Not on file COVID-19 Exposure [...] message to triage for review. Harjeet Connolly SIDING INSTALLER ([facility]) documented in this encounter Plan of Treatment Upcoming Encounters Date Type Department Care Team (Late st Contact Info) Description 12/22/2023 11:00 AM CDT Office Visit [facility] [address] [place] [address] Jackelyn Carrera MD [address] [place] [address] documented as of this encounter Visit Diagnoses Not on filedocumented in this encounter Additional Health Concerns Assessment Noted Time PHQ-9 Depression Total Score: 5 04/30/20 20 3:13 PM FASHION COORDINATOR documented as of this encounter Care Teams Early Morning Babysitter Relationship Specialty [place] [address] [place] [address] PCP - General Family Practice 11/27/18 [place] [address] [place] [address] Assigned PCP 05/11/20 Jackelyn Carrera MD [address] [place] [address] travel services professional 10/21/23 Litzy Vergara PA-C [address] [place] [address] Physician Transmission Calibration Engineer Family Medicine 10/21/23 Jackelyn Carrera MD [address] [place] [address] Assigned OBGYN Provider 11/13/23 documented as of this encounter
--- OUTSIDE RECORDS SUMMARY | 2023-11-16 17:04 | XMS_ITS | Encounter Summary ---
Author Organization [place] Address [address] [place] [address] Care Team Providers Care Room Service Food Server Name Role Phone Leslie Silvestre MD Unavailable [phone] Leslie Silvestre MD Primary Care Provider [phone] Patricia Tobin MD Unavailable + Karen Miller Unavailable Unavailable OLeslie Espinosa MD Unavailable [phone] Jackelyn Carrera MD Unavailable [phone] Litzy Vergara PA-C Unavailable [phone] Jackelyn Carrera MD Unavailable [phone] Encounter Details Date Type Department Care Team (Late st Contact Info) Description 05/25/2019 MyC Medical Advice [address] [address] Sydni Davalos, BUSINESS LIAISON OFFICER Social History Tobacco Use Types Packs/Day Years Used Date Smoking Tobacco: Never Smokeless Tobacco: Never Alcohol Use Standard Drinks/Week Comments No 0 (1 standard drink = 0.6 oz pur e alcohol) PHQ-2 Answer Date Recorded PHQ-2 Score 0 11/20/2018 Conway Depression Scale Answer Date Recorded Conway Depression Score 0 12/07/2018 Last EPDS Self Harm Result Not on file 12/07 Sex and Gender Information Value Date Recorded Sex Assigned at Female 06/28/2018 11:22 AM SUPERVISOR PARACHUTE MANUFACTURING Gender Identity Female 06/28/2018 11:22 AM SUPERVISOR PARACHUTE MANUFACTURING Sexual Orientation Not on file documented as of this encounter Plan of Treatment Upcoming Encounters Date Type Department Care Team (Late st Contact Info) Description 12/22/2023 11:00 AM CDT Office Visit [facility] [address] [place] [address] Jackelyn Carrera MD [address] [place] [address] documented as of this encounter Visit Diagnoses Not on filedocumented in this encounter Additional Health Concerns Assessment Noted Time PHQ-9 Depression Total Score: 12 024 7:10 AM CDT documented as of this encounter Care Teams Room Service Food Server Relationship Specialty Start [place] [address] [place] [address] PCP - General Family Practice 11/27/18 [place] [address] [place], [place] [phone] Assigned PCP 10/15/18 12/08/19 Patricia Tobin MD PRIMARY ENT [address] [facility] [address] [place] [address] Assigned PCP 12/09/19 05/10/20 Karen Miller Personal Advocate & Liaison (PAL) Family Medicine 04/30/20 08/26/20 [place] [address] [place] [address] Assigned PCP 05/11/20 Jackelyn Carrera MD [address] [place] [address] roller stainer 10/21/23 Litzy Vergara PA-C [address] [place] [address] Physician Pond Scaler Family Medicine 10/21/23 Jackelyn Carrera MD [address] [place] [address] Assigned OBGYN Provider 11/13/23 documented as of this encounter
--- OUTSIDE RECORDS SUMMARY | 2023-11-16 17:04 | XMS_ITS | Encounter Summary ---
Author Organization [place] Address [address] [place] [address]. [place] [address] Care Team Providers Care Curtain Worker Name Role Phone Leslie Silvestre MD Primary Care Provider [phone] Leslie Silvestre MD Unavailable [phone] Jackelyn Carrera MD Unavailable [phone] Litzy Vergara PA-C Unavailable [phone] Jackelyn Carrera MD Unavailable [phone] Reason for Visit * Reason Onset Date Comments MyChart Communication 11/12/2020 Encounter Details Date Type Department Care Team (Latest Contact Info) Description 11/12/2020 MyC Medical Advice [address] [phone] [place] [id number] [place] [phone] MyChart Communication Social History Tobacco Use Types [...] and Family Once a week 06/28/2019 Attends Confucianism Services Never 06/28 Active Member of Clubs [...] Answer Date Recorded PHQ-2 Score 0 08/28/2020 [facility] - [...] things needed for daily living? No 06/28/2019 Baker Depression Scale Answer Date Recorded Baker Depression Score 0 12/07/2018 Last EPDS Self Harm Result Not on file 12/07 Education Answer Date Recorded What is the highest level of school you have completed or the highest degree you have received? 12th grade 06/28/2019 Sex and Gender Information Value Date Recorded Sex Assigned at Female 06/28/2018 11:22 AM NURSE CARE MANAGER Gender Identity Female 06/28/2018 11:22 AM NURSE CARE MANAGER Sexual Orientation Not on file COVID-19 Exposure Response Date Recorded In the last month, have you been in contact with someone who was confirmed or suspected to have Coronavirus / COVID-19? No / Unsure 11/11/2020 10:21 AM CDT documented as of this encounter Miscellaneous Notes * Telephone Encounter - Evens Santana RN - 11/17/2020 12:49 PM CDT Responded to patient via [employer], will monitor response Evens Santana RN * Telephone Encounter - Leslie Silvestre MD - 11/17/2020 12:18 PM CDT Okay I did just see the ultrasound. I was out for vacation last week. They recommended repeat ultrasound in 6 weeks. Would she like to see ENTRY LEVEL MANAGER for why this keeps happening? * Telephone Encounter - Irwin Jett MD - 11/12/2020 1:41 PM CDT I really would like to leave this until Dr. Silvestre is back, is that possible? If not, then I recommend a virtual visit with one of us to discuss this in details. Irwin Jett MD [facility] [phone] * Telephone Encounter - Alondra Florentino RN - 11/12/2020 1:09 PM CDT See [employer] message below. Please advise. Alondra Florentino RN * Telephone Encounter - Titus Hidalgo RN - 11/12/2020 12:28 PM CDT Uber message sent to patient for clarification. Per [...] seen the results. There is a duplicate [employer] communication regarding this matter as well. Harjeet Connolly AGILE SCRUM COACH ([facility]) documented in this encounter Plan of Treatment Upcoming Encounters Date Type Department Care Team (Late st Contact Info) Description 12/22/2023 11:00 AM CDT Office Visit [facility] [address] [place] [phone] Jackelyn Carrera MD [address] [place] [address] documented as of this encounter Visit Diagnoses Not on filedocumented in this encounter Additional Health Concerns Assessment Noted Time PHQ-9 Depression Total Score: 5 04/30/20 20 3:13 PM NURSE CARE MANAGER documented as of this encounter Care Teams Curtain Worker Relationship Specialty [place] [address] [place] [address] PCP - General Family Practice 11/27/18 [place] [address] [place] [address] Assigned PCP 05/11/20 Jackelyn Carrera MD [address] [place] [address] resident care director 10/21/23 Litzy Vergara PA-C [address] [place] [address] Physician Clay Burner Family Medicine 10/21/23 Jackelyn Carrera MD [address] [place] [address] Assigned OBGYN Provider 11/13/23 documented as of this encounter
--- OUTSIDE RECORDS SUMMARY | 2023-11-16 17:05 | XMS_ITS | Encounter Summary ---
Author Organization [facility] Address [address] [place] [address] Care Team Providers Care Sales Support Specialist Name Role Phone Leslie Silvestre MD Primary Care Provider [phone] Katja Catalan MD Primary Care Provider [facility] Primary Care Provide r No Ref-Primary, Physician Primary Care Provider Natasha Horta ELECTRONIC TEST TECHNICIAN HR BUSINESS PARTNER Unavailable + Ptaricia Tobin MD Unavailable + [facility] Primary Care Provider Patricia Tobin MD Unavailable + Roro Garber BENZOL STILL OPERATOR Unavailable [phone] No Ref-Primary, Physician Primary Care Provider Leslie Silvestre MD Unavailable [phone] Leslie Silvestre MD Primary Care Provider [phone] Patricia Tobin MD Unavailable + Karen Miller Unavailable Unavailable Leslie Silvestre MD Unavailable [phone] Jackelyn Carrera MD Unavailable Jai Litzysylvia Wei PA-C Unavailable [phone] Jackelyn Carrera MD Unavailable [phone] Encounter Details Date Type Department Care Team (Late st Contact Info) Description 03/30/2003 [facility] [address] [place] [phone] [place] Silvestre [place] [id number] [place] [address] [phone] ER ENCOUNTER (Primary Dx) Social History Tobacco [...] Sex Assigned at Female 06/28/2018 11:22 AM NETWORK STRATEGIST Gender Identity Female 06/28/2018 11:22 AM NETWORK STRATEGIST Sexual Orientation Not on file documented as of this encounter Progress Notes * 03/30/2003 11:59 PM [id number] 00:00 Emergency Department Encounter-DINA RO () [Entered: Shamar ticosta([facility])] : 98 CHIEF COMPLAINT: Sore throat. [...] Stable. [id number] DINA THORNTON MD [place]: Document: [id number] [place], [place] Name: JACOB ROBLERO Electronically filed by Sarah Liriano 04/01 12:41 PM documented in this encounter Plan of Treatment Upcoming Encounters Date Type Department Care Team (Late st Contact Info) Description 12/22/2023 11:00 AM CDT Office Visit [address] [place] [address] Jackelyn Carrera MD [address] [place] [address] documented as of this encounter Visit Diagnoses Diagnosis ER ENCOUNTER- Primary documented in this encounter Care Teams Sales Support Specialist Relationship Specialty Start [place] [address] [place] [address] PCP - General 07/22/03 12/17/13 [place] [address] [place] [address] PCP - General Family Practice 12/18/13 05/27/17 [facility] [address] [place] [place], [place] [phone] PCP - General 05/28/17 03/29/18 No Ref-Primary, Physician PCP - General 03/30/18 07/02/18 Natasha Horta APRN HR BUSINESS PARTNER [address] [place] [address] PCP - Assigned PCP 02/12/18 05/13/18 Patricia Tobin MD PRIMARY ENT [address] [facility] [address] [place] [address] PCP - Assigned PCP 05/14/18 07/25/[address] [address] PCP - General Internal Medicine 07/03/18 09/28/18 No Ref-Primary, Physician PCP - General 09/29/18 11/26/18 [place] [address] [place] [address] PCP - General Family Practice 11/27/18 Patricia Tobin MD PRIMARY ENT [address] [facility] [address] [place] [address] Assigned PCP 06/11/18 10/14/18 Roro Garber, [facility] Clinic Compound Finisher Primary Care - CC 07/26/18 [place] [address] [place] [address] Assigned PCP 10/15/18 12/08/19 Patricia Tobin MD PRIMARY ENT [address] [facility] [address] [place] [address] Assigned PCP 12/09/19 05/10/20 Karen Miller Personal Advocate & Liaison (PAL) Family Medicine 04/30/20 08/26/20 [place] [address] [place] [address] Assigned PCP 05/11/20 Jackelyn Carrera MD [address] [place] [address] evaluator 10/21/23 Litzy Vergara PA-C [address] [place] [address] Physician Editor Producer Family Medicine 10/21/23 Jackelyn Carrera MD [address] [place] [address] Assigned OBGYN Provider 11/13/23 documented as of this encounter
[2023-11-16 23:12] LABS: Chlamydia DNA Amplified* NOT DETECTED (No Detected); GC DNA Amplified* NOT DETECTED (No Detected)
== END 2023-11-16 17:02 | disposition home or self-care (01) ==
LOC: LKVREF 17:01
PROVIDERS: PCP Physician Assistant Medical; Visit Provider Physician Assistant
DX: Z11.3 Encounter for screening for infections with a predominantly sexual mode of transmission (principal)
CPT/HCPCS: 87491; 87591

== ENCOUNTER 2024-02-01 18:42 | Outpatient (CLI) | payer BC, SELFPAY ==
--- OUTSIDE RECORDS SUMMARY | 2024-02-06 00:33 | XMS_ITS | Clinical Summary ---
Author Organization [facility] Address [address] [place] [address] Care Team Providers Care Hospitality Manager Name Role Phone Leslie Silvestre MD Primary Care Provider [phone] Jackelyn Carrera MD Unavailable [phone] Litzy Vergara PA-C Unavailable [phone] Jackelyn Carrera MD Unavailable [phone] Vi La PA-C Unavailable [phone] Allergies Active Allergy Reactions Criticality Noted Date Comments No Known Drug Allergy 12/10/2002 Medications Medication Sig Dispensed Refills Start Date End Date Status norethindrone-ethiny l estradiol (MICROGESTIN .10/19) 1.5-30 MG-MCG tabletIndications:En counter for other contraceptive management Take 1 tablet by mouth daily 84 tablet 3 10/20/2023 Active Additional Information Patient not taking.Reported on 12/16/2023 doxycycline hyclate (VIBRAMYCIN) 100 MG capsuleIndications:R outine screening for STI (sexually transmitted infection),Exposure to chlamydia Take 1 capsule (100 mg) by mouth 2 times daily 14 capsule 12/16/2023 Active Active Problems Problem Noted Date Diagnosed [...] Encounters Date Type Department Care Team Description 12/28/2023 Telephone [facility] [address] [facility] [address] [place] [phone] Jackelyn Carrera MD Blood Draw (Patient needs labs before appointment 01/01) 12/16/2023 11:30 AM CDT Office Visit [facility] [address] [place] [address] Litzy Mckeon MD Routine screening for STI (sexually transmitted infection) (Primary Dx); Exposure to chlamydia 12/16/2023 Travel 12/04/2023 2:14 PM CDT - 12/04/2023 4:48 PM CDT Emergency [facility] [address] [place] [phone] Ramos Gomez MD Discharge Disposition: Left Without Being Seen 12/04/2023 Travel 11/25/2023 2:22 AM CDT - 11/25/2023 2:51 AM CDT Emergency [facility] [address] [place] [phone] Pepito Lima MD Discharge Disposition: Home or Self Care 11/25/2023 Travel 11/08/2023 MyC Medical Advice [facility] [address] [facility] [address] [place] [phone] Jackelyn Carrera MD from Last 3 Months Immunizations Name Administration [...] often do you attend chur ch or rastafari services? Never 08/03/2023 Do you belong to any clubs o r organizations such as jewish groups, unions, fraternal or athletic groups, or [...] Answer Date Recorded PHQ-2 Score 0 10/20/2023 [facility] Questionnaire Answer Date [...] exercise at this level? 30 min 08/03/2023 [place] Depression Scale Answer Date Recorded [place] Depression Score 0 12/07/2018 Last EPDS Self [...] in an abandoned building, in an overnight senior care, or couch-surfing.) Yes 08/03/2023 Are you worried [...] Sex Assigned at Female 06/28/2018 11:22 AM STRIKE ON MACHINE OPERATOR Gender Identity Female 06/28/2018 11:22 AM STRIKE ON MACHINE OPERATOR Sexual Orientation Not on file Last Filed Vital Signs Vital Sign Reading Time Taken Comments Blood Pressure 126/76 12/16/2023 11:54 AM CDT Pulse 70 12/16/2023 11:54 AM CDT Temperature 36.6 ??C (97.8 ??F) 12/16/2023 11:54 AM C DT Respiratory Rate 18 12/04/2023 2:14 PM CDT Oxygen Saturation 100% 12/16/2023 11:54 AM CDT Inhaled Oxygen Concentration - - Weight 57.2 kg (126 lb) 12/16/2023 11:54 AM CDT Height 160 cm (5' 3) 12/04/2023 2:14 PM CDT Body Mass Index 22.32 12/04/2023 2:14 PM CDT Plan of Treatment Health Maintenance Due Date Last Done Comments ANNUAL REVIEW OF HM ORDERS 07/05/2023 07/05/2022, YEARLY PREVENTIVE VISIT 07/05/2023 07/05/19 23, 04/30/2020, 06/28/2019, Additional history exists DEPRESSION 12 MO INDEX REPEAT PHQ-9 12/03/2023 10/20/2023, 08/03/2023, 01/31/2023, Additional history exists COVID-19 Vaccine ( season) 2024 INFLUENZA VACCINE (#1) 2024 , 04/17/2018, 02/20/2018, Additional history exists PHQ-9 04/21/2024 10/20/2023, 07/21, 01/31/2023, Additional history exists PAP 03/17/2025 03/17/2022, 01/2020, 06/28/2019 ADVANCE CARE PLANNING 07/05/2027 07/05/2022 DTAP/TDAP/TD IMMUNIZATION (8 - Td or Tdap) 10/25/2028 10/25/2018, 10/20/2010, 07/29/2003, Additional history exists HEPATITIS B IMMUNIZATION Completed 999, 1998, 1998 HPV IMMUNIZATION Completed 12/18/2013, 08/2012, 01/02/2013 MENINGITIS IMMUNIZATION Aged Out 12/18/2013, 07/28 No longer eligible based on patient's age to complete this topic DEPRESSION ACTION PLAN Completed 06/02/2017, 2017 HEPATITIS C SCREENING Completed 04/30/2020 HIV SCREENING Completed 10/29/2020, 01/2020, 06/26/2018, Additional history exists PAP FOLLOW-UP Completed 03/17/2022, 01/2020, 06/28/2019 CHLAMYDIA SCREENING Discontinued 12/16/2023, 02/22/2023, 07/05/2022, Additional history exists Pneumococcal Vaccine: Pediatrics (0 to 5 Years) and At-Risk Patients (6 to 64 Years) Aged Out No longer eligible based on patient's age to complete this topic RSV MONOCLONAL ANTIBODY Aged Out No l onger eligible based on patient's age to complete this topic Procedures Procedure Name Priority Date/Time Associated Diagnosis Comments WET PREPARATION Routine 12/16/2023 12:26 PM CDT Routine screening for STI (sexually transmitted infection) CHLAMYDIA TRACHOMATIS/NEISSERIA GONORRHOEAE BY PCR Routine 12/16/2023 12:25 PM CDT Routine screening for STI (sexually transmitted infection) CBC WITH PLATELETS & DIFFERENTIAL STAT 12/04/2023 2:24 PM CDT CBC WITH PLATELETS AND DIFFERENTIAL STAT 12/04/2023 2:24 PM CDT HCG QUALITATIVE STAT 12/04/2023 2:24 PM CDT BASIC METABOLIC PANEL STAT 12/04/2023 2:24 PM CDT ROUTINE UA WITH MICROSCOPIC REFLEX TO CULTURE STAT 12/04/2023 2:24 PM CDT GYNECOLOGIC CYTOLOGY Routine 03/17/2022 8:26 AM CDT Cervical cancer screening HIV ANTIGEN ANTIBODY COMBO Routine 10/29/2020 5:03 PM CDT Screen for STD (sexually transmitted disease) HEPATITIS C SCREEN REFLEX TO HCV RNA QUANT AND GENOTYPE Routine 04/30/2020 4:18 PM STRIKE ON MACHINE OPERATOR Need for hepatitis C screening test from Last 3 Months or Most Recently Relevant to Health Maintenance Results * (ABNORMAL) Wet prep - Clinic Collect (12/16/2023 12:26 PM CDT) Trichomonas Absent Absent [facility] 12/16/2023 12:28 PM CDT [facility] Yeast Absent Absent [facility] 12/16/2023 12:28 PM CDT [facility] Clue Cells Absent Absent [facility] 12/16/2023 12:28 PM CDT [facility] WBCs/high power field 2+(A) None [facility] 12/16/2023 12:28 PM CDT [facility] Swab VAGINAL STRUCTURE / Unknown Non-blood Collection / Unknown 12/16/2023 12:26 PM CDT 12/16/2023 12:26 PM CDT Litzy Mckeon MD LAB - MICRO GENERAL ORDERABLES [facility] [address] [facility] [address] [place] [address], [facility] [phone] * Chlamydia trachomatis/Neisseria gonorrhoeae by PCR - Clinic Collect (12/16/2023 12:25 PM CDT) Pathologist [facility] Chlamydia Trachomatis Negative Negative 12/17/2023 1:02 PM CDT [facility] Comment: Negative for C. trachomatis rRNA by new car get ready mechanic mediated amplification. A negative result by new car get ready mechanic mediated amplification does not preclude the presence of infection because results are dependent on proper and adequate collection, absence of inhibitors and sufficient rRNA to be detected. Neisseria gonorrhoeae Negative Negative 12/17/2023 1:02 PM CDT [facility] Comment:Negative for N. gono rrhoeae rRNA by new car get ready mechanic mediated amplification. A negative result by new car get ready mechanic mediated amplification does not preclude the presence of C. trachomatis infection because results are dependent on proper and adequate collection, absence of inhibitors and sufficient rRNA to be detected. Urine VOIDED URINE SPECIMEN / Unknown Non-blood Collection / Unknown 12/16/2023 12:25 PM CDT 12/16/2023 12:25 PM CDT Litzy Mckeon MD LAB - MICRO GENERAL ORDERABLES [facility] Inf. Diseases Diag. Lab [address] [facility] [place] [address] * (ABNORMAL) CBC with platelets and differential (12/04/2023 2:24 PM CDT) [facility] WBC Count 5.8 4.0 - 11.0 10e3/uL 12/04/2023 2:36 PM CDT LABORATORY RBC Count 4.24 3.80 - 5.20 10e6/uL 12/04/2023 2:36 PM CDT LABORATORY Hemoglobin 11.6(L) 11.7 - 15.7 g/dL 12/04/2023 2:36 PM CDT LABORATORY Hematocrit 37.1 35.0 - 47.0 % 12/04/2023 2:36 PM CDT LABORATORY MCV 88 78 - 100 fL 12/04/2023 2:36 PM CDT LABORATORY MCH 27.4 26.5 - 33.0 pg 12/04/2023 2:36 PM CDT LABORATORY MCHC 31.3(L) 31.5 - 36.5 g/dL 12/04/2023 2:36 PM CDT LABORATORY RDW 12.3 10.0 - 15.0 % 12/04/2023 2:36 PM CDT LABORATORY Platelet Count 234 150 - 450 10e3/uL 12/04/2023 2:36 PM CDT LABORATORY % Neutrophils 63 % 12/04/2023 2:36 PM CDT LABORATORY % Lymphocytes 28 % 12/04/2023 2:36 PM CDT LABORATORY % Monocytes 7 % 12/04/2023 2:36 PM CDT LABORATORY % Eosinophils 1 % 12/04/2023 2:36 PM CDT LABORATORY % Basophils 0 % 12/04/2023 2:36 PM CDT LABORATORY % Immature Granulocytes 0 % 12/04/2023 2:36 PM CDT LABORATORY NRBCs per 100 WBC 0 <1 /100 024 2:36 PM CDT LABORATORY Absolute Neutrophils 3.7 1.6 - 8.3 10e3/uL 12/04/2023 2:36 PM CDT LABORATORY Absolute Lymphocytes 1.7 0.8 - 5.3 10e3/uL 12/04/2023 2:36 PM CDT LABORATORY Absolute Monocytes 0.4 0.0 - 1.3 10e3/uL 12/04/2023 2:36 PM CDT LABORATORY Absolute Eosinophils 0.0 0.0 - 0.7 10e3/uL 12/04/2023 2:36 PM CDT LABORATORY Absolute Basophils 0.0 0.0 - 0.2 10e3/uL 12/04/2023 2:36 PM CDT LABORATORY Absolute Immature Granulocytes 0.0 <=0.4 10e3/uL 12/04/2023 2:36 PM CDT LABORATORY Absolute NRBCs 0.0 10e3/uL 12/04/2023 2:36 PM CDT LABORATORY Blood BLOOD SPECIMEN / Unknown Venipuncture / Unknown 12/04/2023 2:24 PM CDT 12/04/2023 2:33 PM CDT Ascencion Ferguson MD LAB - BLOOD ORDER [facility] [address], [address] [place] [address], [facility] [phone] * (ABNORMAL) UA with Microscopic reflex to Culture (12/04/2023 2:24 PM CDT) Color Urine Light Yellow Colorless, Straw, Light Yellow, Yellow 12/04/2023 2:50 PM CDT LABORATORY Appearance Urine Clear Clear 12/04/19 2:50 PM CDT LABORATORY Glucose Urine Negative Negative mg/dL 12/04/2023 2:50 PM CDT LABORATORY Bilirubin Urine Negative Negative 2:50 PM CDT LABORATORY Ketones Urine Negative Negative mg/dL 12/04/2023 2:50 PM CDT LABORATORY Specific [place] Urine 1.013 1.003 - 1.035 12/04/2023 2:50 PM CDT LABORATORY Blood Urine Negative Negative 12/04/2023 2:50 PM CDT LABORATORY pH Urine 7.0 5.0 - 7.0 12/04/2023 2:50 PM CDT LABORATORY Protein Albumin Urine Negative Negative mg/dL 12/04/2023 2:50 PM CDT LABORATORY Urobilinogen Urine Normal Normal, 2.0 mg/dL 12/04/2023 2:50 PM CDT LABORATORY Nitrite Urine Negative Negative 12/04/2023 2:50 PM CDT LABORATORY Leukocyte Esterase Urine Negative Negative 12/04/2023 2:50 PM CDT LABORATORY Mucus Urine Present(A) None Seen /LPF 12/04/2023 2:50 PM CDT LABORATORY RBC Urine 0 <=2 /HPF 12/04/2023 2:50 PM CDT LABORATORY WBC Urine <1 <=5 /HPF 12/04/2023 2:50 PM CDT LABORATORY Squamous Epithelials Urine 5(H) <=1 /HPF 12/04/2023 2:50 PM CDT LABORATORY Urine URINE SPECIMEN OBTAINED BY CLEAN CATCH PROCEDURE / Unknown Non-blood Collection / Unknown 12/04/2023 2:24 PM CDT 12/04/2023 2:39 PM CDT Narrative LABORATORY - 12/04/2023 2:50 PM CDT Urine Culture not indicated Ascencion Ferguson MD LAB - URINE ORDER [facility] LAB[facility] [address], [address] [place] [address], [place] [phone] * HCG QUALitative (blood) (12/04/2023 2:24 PM CDT) hCG Serum Qualitative Negative Negative [facility] 12/04/2023 2:47 PM CDT LABORATORY Comment:This test is for scr eening purposes. Results should be interpreted along with the clinical picture. Confirmation testing is available if warranted by ordering [id number], HCG Quantitative . Blood BLOOD SPECIMEN / Unknown Venipuncture / Unknown 12/04/2023 2:24 PM CDT 12/04/2023 2:32 PM CDT Ascencion Ferguson MD LAB - BLOOD ORDER CLAUDIA Performing Organization Address City/[facility]/ZIP Co de Phone Number LABORATORY [facility] [address], [address] [place] [address], [place] [phone] * Basic metabolic panel (12/04/2023 2:24 PM CDT) Sodium 138 135 - 145 mmol/L 12/04/2023 3:02 PM CDT LABORATORY Potassium 4.1 3.4 - 5.3 mmol/L 12/04/2023 3:02 PM CDT LABORATORY Chloride 102 98 - 107 mmol/L 12/04/2023 3:02 PM CDT LABORATORY Carbon Dioxide (CO2) 26 22 - 29 mmol/L 12/04/2023 3:02 PM CDT LABORATORY Anion Gap 10 7 - 15 mmol/L 12/04/2023 3:02 PM CDT LABORATORY Urea Nitrogen 10.5 6.0 - 20.0 mg/dL 12/04/2023 3:02 PM CDT LABORATORY Creatinine 0.73 0.51 - 0.95 mg/dL 12/04/2023 3:02 PM CDT LABORATORY GFR Estimate >90 >60 mL/min/1.7 3m2 12/04/2023 3:02 PM CDT LABORATORY Comment:eGFR calculated us2020 CKD-EPI equation. Calcium 9.6 8.6 - 10.0 mg/dL 12/04/2023 3:02 PM CDT LABORATORY Glucose 79 70 - 99 mg/dL 12/04/2023 3:02 PM CDT LABORATORY Blood BLOOD SPECIMEN / Unknown Venipuncture / Unknown 12/04/2023 2:24 PM CDT 12/04/2023 2:33 PM CDT Ascencion Ferguson MD LAB - BLOOD ORDER CLAUDIA LABORATORY [facility] [address], [address] [place] [address], [facility] [phone] * Pap Screen only - recommended age [...] component of this testing was completed at [facility] 03/19/2022 2:52 PM CDT SPECIALTY LABS Brushing CERVIX UTERI STRUCTURE / Unknown 03/17/2022 8:26 AM CDT 03/17/2022 8:56 AM CDT Litzy MILLER [facility] [address] [facility], [address] [place] [address], [facility] [phone] * HIV Antigen Antibody Combo (10/29/2020 5:03 PM CDT) HIV Antigen Antibody Combo Nonreactive NR^Nonrea ctive 10/30/2020 3:42 PM CDT [facility] Comment:HIV-1 p24 Ag & HIV-1 /HIV-2 Ab Not Detected Blood 10/29/2020 5:03 PM CDT 10/29/2020 5:04 PM CDT Leslie Silvestre MD LAB - BLOOD ORDERABL ES Performing Organization Address [facility] Co de Phone Number [address] [address] * Hepatitis C Screen Reflex to HCV RNA Quant and Genotype (04/30/2020 4:18 PM STRIKE ON MACHINE OPERATOR) Hepatitis C Antibody Nonreactive NR^Nonre active 05/02/2020 10:31 AM STRIKE ON MACHINE OPERATOR [facility] Comment: Assay performance characteristics have not been established for newborns, infants, and children Blood specimen (specimen) 04/30/2020 4:18 PM STRIKE ON MACHINE OPERATOR 04/30/2020 4:19 PM STRIKE ON MACHINE OPERATOR Leslie Silvestre MD LAB - BLOOD ORDERABL ES [facility] [address] [place] [address] from Last 3 Months or Most Recently Relevant to Health Maintenance Care Teams Hospitality Manager Relationship Specialty [place] [address] [place], [place] [phone] PCP - General Family Practice 11/27/18 Jackelyn Carrera MD [address] [place] [address] MD civil division deputy sheriff 10/21/23 Litzy Vergara PA-C [address] [place] [address] Physician Card Setter Family Medicine 10/21/23 Jackelyn Carrera MD [address] [place] [address] Assigned OBGYN Provider 11/13/23 Vi La PA-C [address] [place] [address] Assigned PCP 01/13/24
--- OUTSIDE RECORDS SUMMARY | 2024-02-06 00:33 | XMS_ITS | Clinical Summary ---
Author Organization [facility] Address [place], [place] [address] Care Team Providers Care Antique Refinisher Name Role Phone Tiffany Frey PA-C Primary [...] Comments Blood Pressure 130/87 06/23/2023 12:58 PM HABILITATION ASSISTANT Pulse 110 06/23/2023 12:58 PM HABILITATION ASSISTANT Temperature 36.8 ??C (98.3 ??F) 07/01/2012 7:57 PM CS T Respiratory Rate 18 07/01/2012 7:57 PM HABILITATION ASSISTANT Oxygen Saturation 98% 06/23/2023 12:58 PM HABILITATION ASSISTANT Inhaled Oxygen Concentration - - Weight 52.9 kg (116 lb 9.6 oz) 06/23/2023 12:58 PM HABILITATION ASSISTANT Height 160 cm (5' 3) 06/23/2023 12:58 PM HABILITATION ASSISTANT Body Mass Index 20.65 06/23/2023 12:58 PM HABILITATION ASSISTANT Plan of Treatment Health Maintenance Due Date Last Done Comments Tdap 2009 Depression screening for age 12+ 2010 HIV for age 15-65 2013 HPV series for age 9-26 (1 - 3-dose series) 2013 Hepatitis C screening for ag e 18-79 02/27/2016 Tetanus booster 2018 Pap test for age 21-65 2019 COVID-19 vaccine series ( season) 2024 Influenza for age 9-49 01/22/2024 BMI (ht and wt on same day) for age 18+ 06/23/2024 06/23/2023 Pneumococcal series for age 6-64 Aged Out No longer eligible based on patient's age to complete this topic Care Teams Antique Refinisher Relationship Specialty Start Date End Date Tiffany Frey PA-C [address] [place] [address] PCP - General Emergency Medicine 06/23/23
--- OUTSIDE RECORDS SUMMARY | 2024-02-06 00:34 | XMS_ITS | Encounter Summary ---
Author Organization [facility] Address [address] [place] [address] Care Team Providers Care Road Conductor Name Role Phone Leslie Silvestre MD Primary Care Provider [phone] Leslie Silvestre MD Unavailable [phone] Jackelyn Carrera MD Unavailable [phone] Litzy Vergara PA-C Unavailable [phone] Jackelyn Carrera MD Unavailable Encounter Details Date Type Department Care Team (Latest Contact Info) Description 12/16/2023 Travel Social History Tobacco Use Types Packs/Day [...] often do you attend chur ch or sikh services? Never 08/03/2023 Do you belong to any clubs o r organizations such as latter day groups, unions, fraternal or athletic groups, or [...] Answer Date Recorded PHQ-2 Score 0 10/20/2023 [facility] - Occupational [...] exercise at this level? 30 min 08/03/2023 Byron Depression Scale Answer Date Recorded [place] Depression Score 0 12/07/2018 Last EPDS Self [...] in an abandoned building, in an overnight care home, or couch-surfing.) Yes 08/03/2023 Are you [...] Sex Assigned at Female 06/28/2018 11:22 AM LINING MARKER Gender Identity Female 06/28/2018 11:22 AM LINING MARKER Sexual Orientation Not on file documented as of this encounter Plan of Treatment Not on file documented as of this encounter Visit Diagnoses Not on filedocumented in this encounter Additional Health Concerns Assessment Noted Time PHQ-9 Depression Total Score: 5 10/20/19 24 9:22 AM CDT documented as of this encounter Care Teams Road Conductor Relationship Specialty Start [place] [address] [place] [address] PCP - General Family Practice 11/27/18 [place] [address] [place] [address] Assigned PCP 05/11/20 01/12/24 Jackelyn Carrera MD [address] [place] [address] fruit pitter 10/21/23 Litzy Vergara PA-C [address] [place] [address] Physician Marriage Counselor Family Medicine 10/21/23 Jackelyn Carrera MD [address] [place] [address] Assigned OBGYN Provider 11/13/23 documented as of this encounter
--- OUTSIDE RECORDS SUMMARY | 2024-02-06 00:34 | XMS_ITS | Encounter Summary ---
Author Organization [facility] Address [address] [place] [address]. [place] [address] Care Team Providers Care Tub Puller Name Role Phone Leslie Silvestre MD Primary Care Provider [phone] Leslie Silvestre MD Unavailable [phone] Jackelyn Carrera MD Unavailable [phone] Litzy Vergara PA-C Unavailable [phone] Jackelyn Carrera MD Unavailable [phone] Reason for Visit * Reason Onset Date Comments Blood Draw 12/28/2023 Patient needs la bs before appointment 01/01 Encounter Details Date Type Department Care Team (Late st Contact Info) Description 12/28/2023 Telephone [facility] [address] [place] [address] Jackelyn Carrera MD [address] [place] [address] Blood Draw (Patient needs labs before appointment 01/01) Social History Tobacco Use Types Packs/Day Years [...] How often do you attend chur or caodaism services? Never 08/03/2023 Do you belong to [...] Answer Date Recorded PHQ-2 Score 0 10/20/2023 [facility] - [...] exercise at this level? 30 min 08/03/2023 [place] Depression Scale Answer Date Recorded [place] Depression Score 0 12/07/2018 Last EPDS Self [...] Sex Assigned at Female 06/28/2018 11:22 AM FENCE MAKER Gender Identity Female 06/28/2018 11:22 AM FENCE MAKER Sexual Orientation Not on file documented as of this encounter Miscellaneous Notes * Telephone Encounter - Jamilah Bagley CMA - 12/28/2023 10:40 AM CDT Called and left patient a message. Patient has appointment for follow-up on 01/01. AB ordered labs for patient on 10/24 when she had her visit. Patient still has not had labs completed, and AB would like labs drawn before patient comes in on Tuesday. Patient can go to any [facility] lab today or tomorrow and have them drawn. Jamilah Bagley CMA documented in this encounter Plan of Treatment Not on file documented as of this encounter Visit Diagnoses Not on filedocumented in this encounter Additional Health Concerns Assessment Noted Time PHQ-9 Depression Total Score: 5 10/19/ 24 9:22 AM CDT documented as of this encounter Care Teams Tub Puller Relationship Specialty [place] [address] [place] [address] PCP - General Family Practice 11/27/18 [place] [address] [place] [address] Assigned PCP 05/11/20 01/12/24 Jackelyn Carrera MD [address] [place] [address] bag sealer 10/21/23 Litzy Vergara, MACIEJC [id number] [place] [address] Physician Utility Specialist Family Medicine 10/21/23 Jackelyn Carrera MD [address] [place] [address] Assigned OBGYN Provider 11/13/23 documented as of this encounter
--- OUTSIDE RECORDS SUMMARY | 2024-02-06 00:34 | XMS_ITS | Encounter Summary ---
Author Organization [facility] Address [address] [place] [address] Care Team Providers Care Drywall Taper Helper Name Role Phone Leslie Silvestre MD Primary Care Provider [phone] Leslie Silvestre MD Unavailable [phone] Jackelyn Carrera MD Unavailable [phone] Litzy Vergara PA-C Unavailable [phone] Jackelyn Carrera MD Unavailable [phone] Vi La PA-C Unavailable [phone] Encounter Details Date Type Department Care Team (Late st Contact Info) Description 11/19/2020 [facility] [address] [place] [phone] Corina Palacios Social History Tobacco Use Types [...] and Family Once a week 06/28/2019 Attends Oriental Orthodox Services Never 06/28 Active Member of Clubs [...] PHQ-2 Score 0 08/28/2020 [facility] of Occupat ional Health - Occupational Stress [...] things needed for daily living? No 06/28/2019 [place] Depression Scale Answer Date Recorded [place] Depression Score 0 12/07/2018 Last EPDS Self Harm Result Not on file 12/07 Education Answer Date Recorded What is the highest level of school you have completed or the highest degree you have received? 12th grade 06/28/2019 Sex and Gender Information Value Date Recorded Sex Assigned at Female 06/28/2018 11:22 AM INVESTIGATIONS CHIEF Gender Identity Female 06/28/2018 11:22 AM INVESTIGATIONS CHIEF Sexual Orientation Not on file COVID-19 Exposure [...] Total Score: 5 04/30/20 20 3:13 PM INVESTIGATIONS CHIEF documented as of this encounter Care Teams Drywall Taper Helper Relationship Specialty [place] [address] [place] [address] PCP - General Family Practice 11/27/18 [place] [address] [place] [address] Assigned PCP 05/11/20 01/12/24 Jackelyn Carrera MD [address] [place] [address] home appraiser 10/21/23 Litzy Vergara PA-C [address] [place] [address] Physician Licensed Optical Dispenser Family Medicine 10/21/23 Jackelyn Carrera MD [address] [place] [address] Assigned OBGYN Provider 11/13/23 Vi La PA-C [address] [place] [address] Assigned PCP 01/13/24 documented as of this encounter
--- OUTSIDE RECORDS SUMMARY | 2024-02-06 00:34 | XMS_ITS | Encounter Summary ---
Author Organization [facility] Address [address] [place] [address]. [place] [address] Care Team Providers Care Hot End Operator Name Role Phone Leslie Silvestre MD Primary Care Provider [phone] Karen Miller Unavailable Unavailable Leslie Silvestre MD Unavailable [phone] Jackelyn Carrera MD Unavailable [phone] Litzy Vergara PA-C Unavailable [phone] Jackelyn Carrera MD Unavailable [phone] Vi La PA-C Unavailable [phone] Encounter Details Date Type Department Care Team (Late st Contact Info) Description 05/29/2020 [facility] [address] [address] [place] [id number] [place] [address] Social History Tobacco Use Types Packs/Day [...] and Family Once a week 06/28/2019 Attends Scientology Services Never 06/28 Active Member of Clubs [...] Answer Date Recorded PHQ-2 Score 2 04/30/2020 [facility] of Occupat ional Health - Occupational Stress [...] things needed for daily living? No 06/28/2019 [place] Depression Scale Answer Date Recorded [place] Depression Score 0 12/07/2018 Last EPDS Self Harm Result Not on file 12/07 Education Answer Date Recorded What is the highest level of school you have completed or the highest degree you have received? 12th grade 06/28/2019 Sex and Gender Information Value Date Recorded Sex Assigned at Female 06/28/2018 11:22 AM ADULT EDUCATION PROFESSIONAL Gender Identity Female 06/28/2018 11:22 AM ADULT EDUCATION PROFESSIONAL Sexual Orientation Not on file COVID-19 Exposure Response Date Recorded In the last month, have you been in contact with someone who was confirmed or suspected to have Coronavirus / COVID-19? No / Unsure 05/29/2020 9:40 AM ADULT EDUCATION PROFESSIONAL documented as of this encounter Miscellaneous Notes * Telephone Encounter - Evens Santana RN - 05/29/2020 5:52 PM CST Responded to patient via [employer] will monitor response Evens Santana RN T EDUCATION PROFESSIONAL * Telephone Encounter - Leslie Silvestre MD - 05/29/2020 5:43 PM CST I believe the control pill would be best to regulate her cycle and protect future fertility. If she is trying to conceive, I can refer her to EVENT CREW TECHNICIAN for treatment and fertility consult T EDUCATION PROFESSIONAL documented in this encounter Plan of Treatment Not on file documented as of this encounter Visit Diagnoses Not on filedocumented in this encounter Additional Health Concerns Assessment Noted Time PHQ-9 Depression Total Score: 5 04/30/20 20 3:13 PM ADULT EDUCATION PROFESSIONAL documented as of this encounter Care Teams Hot End Operator Relationship Specialty [place] [address] [place] [address] PCP - General Family Practice 11/27/18 Karen Miller Personal Advocate & Liaison (PAL) Family Medicine 04/30/20 08/26/20 [place] [address] [place] [address] Assigned PCP 05/11/20 01/12/24 Jackelyn Carrera MD [address] [place] [address] supervisor cytology 10/21/23 Litzy Vergara PA-C [address] [place] [address] Physician Stockroom Keeper Family Medicine 10/21/23 Jackelyn Carrera MD [address] [place] [address] Assigned OBGYN Provider 11/13/23 Vi La PA-C [address] [place] [address] Assigned PCP 01/13/24 documented as of this encounter
--- OUTSIDE RECORDS SUMMARY | 2024-02-06 00:34 | XMS_ITS | Encounter Summary ---
Author Organization [facility] Address [address] [place] [address] Care Team Providers Care Merchandise Carrier Name Role Phone Leslie Silvestre MD Primary Care Provider [phone] Leslie Silvestre MD Unavailable [phone] Jackelyn Carrera MD Unavailable [phone] Litzy Vergara PA-C Unavailable [phone] Jackelyn Carrera MD Unavailable [phone] Vi La PA-C Unavailable [phone] Encounter Details Date Type Department Care Team (Late st Contact Info) Description 11/08/2023 [facility] [address] [facility] [address] [place] [address] Jackelyn Carrera MD [address] [place] [address] Social History Tobacco Use Types Packs/Day Years [...] How often do you attend chur or muslim services? Never 08/03/2023 Do you belong to any clubs o r organizations such as scientologist groups, unions, fraternal or athletic groups, or [...] Score 0 10/20/2023 [facility] - Occupational Stress Questionnaire Answer [...] exercise at this level? 30 min 08/03/2023 [place] Depression Scale Answer Date Recorded [place] Depression Score 0 12/07/2018 Last EPDS Self [...] in an abandoned building, in an overnight fci, or couch-surfing.) Yes 08/03/2023 Are you worried [...] Sex Assigned at Female 06/28/2018 11:22 AM MASONRY CONTRACTOR Gender Identity Female 06/28/2018 11:22 AM MASONRY CONTRACTOR Sexual Orientation Not on file documented as of this encounter Plan of Treatment Not on file documented as of this encounter Visit Diagnoses Not on filedocumented in this encounter Additional Health Concerns Assessment Noted Time PHQ-9 Depression Total Score: 5 10/20/19 24 9:22 AM CDT documented as of this encounter Care Teams Merchandise Carrier Relationship Specialty [place] [address] [place] [address] PCP - General Family Practice 11/27/18 [place] [address] [place] [address] Assigned PCP 05/11/20 01/12/24 Jackelyn Carrera MD [facility] [place] [address] egg candler 10/21/23 Litzy Vergara, PARupertoC [address] [place] [address] Physician News Clerk Family Medicine 10/21/23 Jackelyn Carrera MD [address] [place] [address] Assigned OBGYN Provider 11/13/23 Vi La PA-C [address] [place] [address] Assigned PCP 01/13/24 documented as of this encounter
--- OUTSIDE RECORDS SUMMARY | 2024-02-06 00:34 | XMS_ITS | Encounter Summary ---
Author Organization [facility] Address [address] [place] [address]. [place] [address] Care Team Providers Care Screen Vent Binder Name Role Phone Leslie Sivlestre MD Primary Care Provider [phone] Leslie Silvestre MD Unavailable [phone] Jackelyn Carrera MD Unavailable [phone] Litzy Vergara PA-C Unavailable Jackelyn Carrera MD Unavailable [phone] Vi La PA-C Unavailable [phone] Reason for Visit * Reason Onset Date Comments MyChart Communication 11/12/2020 Encounter Details Date Type Department Care Team (Latest Contact Info) Description 11/12/2020 [facility] [id number] [place] [address] [place] [id number] [place] [address] MyChart Communication Social History Tobacco Use [...] Answer Date Recorded PHQ-2 Score 0 08/28/2020 [facility] - Occupational Stress Questionnaire Answer [...] things needed for daily living? No 06/28/2019 [place] Depression Scale Answer Date Recorded [place] Depression Score 0 12/07/2018 Last EPDS Self Harm Result Not on file 12/07 Education Answer Date Recorded What is the highest level of school you have completed or the highest degree you have received? 12th grade 06/28/2019 Sex and Gender Information Value Date Recorded Sex Assigned at Female 06/28/2018 11:22 AM BONDERIZER Gender Identity Female 06/28/2018 11:22 AM BONDERIZER Sexual Orientation Not on file COVID-19 Exposure Response Date Recorded In the last month, have you been in contact with someone who was confirmed or suspected to have Coronavirus / COVID-19? No / Unsure 11/11/2020 10:21 AM CDT documented as of this encounter Miscellaneous Notes * Telephone Encounter - Evens Santana RN - 11/17/2020 12:49 PM CDT Responded to patient via [employer], will monitor response Evens Santana RN * Telephone Encounter - Leslie Silvestre MD - 11/17/2020 12:18 PM CDT Okay I did just see the ultrasound. I was out for vacation last week. They recommended repeat ultrasound in 6 weeks. Would she like to see BOY'S ADVISER for why this keeps happening? * Telephone Encounter - Irwin Jett MD - 11/12/2020 1:41 PM CDT I really would like to leave this until Dr. Silvestre is back, is that possible? If not, then I recommend a virtual visit with one of us to discuss this in details. Irwin Jett MD [facility] [phone] * Telephone Encounter - Alondra Florentino RN - 11/12/2020 1:09 PM CDT See [employer] message below. Please advise. Alondra Florentino RN * Telephone Encounter - Titus Hidalgo RN - 11/12/2020 12:28 PM CDT [employer] message sent to patient for clarification. Per last OV note 6/9/21 w/ PCP: Midline low backpain without sciatica, [...] seen the results. There is a duplicate [employer]ureaux A Partager communication regarding this matter as well. Harjeet Connolly BACKFILLER (AAMA) documented in this encounter Plan of Treatment Not on file documented as of this encounter Visit Diagnoses Not on filedocumented in this encounter Additional Health Concerns Assessment Noted Time PHQ-9 Depression Total Score: 5 04/30/20 20 3:13 PM BONDERIZER documented as of this encounter Care Teams Screen Vent Binder Relationship Specialty [place] [address] [place] [address] PCP - General Family Practice 11/27/18 [place] [address] [place] [address] Assigned PCP 05/11/20 01/12/24 Jackelyn Carrera MD [address] [place] [address] attorney recruiter 10/21/23 Litzy Vergara PA-C [address] [place] [address] Physician Robotics Systems Engineer Family Medicine 10/21/23 Jackelyn Carrera MD [address] [place] [address] Assigned OBGYN Provider 11/13/23 Vi La PA-C [address] [place] [address] Assigned PCP 01/13/24 documented as of this encounter
--- OUTSIDE RECORDS SUMMARY | 2024-02-06 00:34 | XMS_ITS | Encounter Summary ---
Author Organization [facility] Address [address] [place] [address]. [place] [address] Care Team Providers Care Technology Risk Intern Name Role Phone Leslie Silvestre MD Primary Care Provider [phone] Karen Miller Unavailable Unavailable Leslie Silvestre MD Unavailable [phone] Jackelyn Carrera MD Unavailable [phone] Litzy Vergara PA-C Unavailable [phone] Jackelyn Carrera MD Unavailable [phone] Vi La PA-C Unavailable [phone] Reason for Visit * Reason Onset Date Comments Patient Request 05/14/2020 Encounter Details Date Type Department Care Team (Late st Contact Info) Description 05/14/2020 [facility] Medical Advice [facility] [id number] [place] [address] [place] [address] [place] [address] Patient Request Social History Tobacco Use [...] and Family Once a week 06/28/2019 Attends Nondenominational Services Never 06/28 Active Member of Clubs [...] Answer Date Recorded PHQ-2 Score 2 04/30/2020 [facility] of Occupat ional Health - Occupational [...] things needed for daily living? No 06/28/2019 [place] Depression Scale Answer Date Recorded [place] Depression Score 0 12/07/2018 Last EPDS Self Harm Result Not on file 12/07 Education Answer Date Recorded What is the highest level of school you have completed or the highest degree you have received? 12th grade 06/28/2019 Sex and Gender Information Value Date Recorded Sex Assigned at Female 06/28/2018 11:22 AM ELECTRICIAN SUBSTATION SUPERVISOR Gender Identity Female 06/28/2018 11:22 AM ELECTRICIAN SUBSTATION SUPERVISOR Sexual Orientation Not on file COVID-19 Exposure Response Date Recorded In the last month, have you been in contact with someone who was confirmed or suspected to have Coronavirus / COVID-19? No / Unsure 05/13/2020 11:14 AM ELECTRICIAN SUBSTATION SUPERVISOR documented as of this encounter Miscellaneous Notes * Telephone Encounter - Alondra Florentino RN - 05/15/2020 7:[address] Silvestre- see [employer] message below. Please advise. Alondra Florentino RN TRICIAN SUBSTATION SUPERVISOR documented in this encounter Plan of Treatment Not on file documented as of this encounter Visit Diagnoses Not on filedocumented in this encounter Additional Health Concerns Assessment Noted Time PHQ-9 Depression Total Score: 5 04/30/20 20 3:13 PM ELECTRICIAN SUBSTATION SUPERVISOR documented as of this encounter Care Teams Technology Risk Intern Relationship Specialty [place] [address] [place] [address] PCP - General Family Practice 11/27/18 Karen Miller Personal Advocate & Liaison (PAL) Family Medicine 04/30/20 08/26/20 [place] [address] [place] [address] Assigned PCP 05/11/20 01/12/24 Jackelyn Carrera MD [address] [place] [address] insurance operations rep 10/21/23 Litzy Vergara, PARupertoC [address] [place] [address] Physician Refrigeration System Installer Family Medicine 10/21/23 Jackelyn Carrera MD [address] [place] [address] Assigned OBGYN Provider 11/13/23 Vi La PA-C [address] [place] [address] Assigned PCP 01/13/24 documented as of this encounter
--- OUTSIDE RECORDS SUMMARY | 2024-02-06 00:34 | XMS_ITS | Encounter Summary ---
Author Organization [facility] Address [address] [place] [address]. [place] [address] Care Team Providers Care Oracle Manager Name Role Phone Leslie Silvestre MD Primary Care Provider [phone] Leslie Silvestre MD Unavailable [phone] Jackelyn Carrera MD Unavailable [phone] Litzy Vergara PA-C Unavailable [phone] Jackelyn Carrera MD Unavailable [phone] Reason for Visit * Reason Comments Exposure to STD Poss chlamydia- stom ach discomfort/ if anything is prescribe would like capsule medications Encounter Details Date Type Department Care Team (Late st Contact Info) Description 12/16/2023 11:30 AM CDT Office Visit [facility] [address] [place] [address] Litzy Mckeon MD [address] [place] [id number] Routine screening for STI (sexually transmitted infection) (Primary Dx); Exposure to chlamydia Social History Tobacco Use Types Packs/Day Years [...] How often do you attend chur or jainism services? Never 08/03/2023 Do you belong to any clubs o r organizations such as yazidi groups, unions, fraternal or athletic groups, or [...] Answer Date Recorded PHQ-2 Score 0 10/20/2023 [facility] of Occupat ional [...] at this level? 30 min 08/03/2023 [place] Depression Scale Answer Date Recorded [place] Depression Score 0 12/07/2018 Last EPDS Self [...] in an abandoned building, in an overnight jail, or couch-surfing.) Yes 08/03/2023 Are you worried [...] Sex Assigned at Female 06/28/2018 11:22 AM NET WPF DEVELOPER Gender Identity Female 06/28/2018 11:22 AM NET WPF DEVELOPER Sexual Orientation Not on file documented as of this encounter Last Filed Vital Signs Vital Sign Reading Time Taken Comments Blood Pressure 126/76 12/16/2023 11:54 AM CDT Pulse 70 12/16/2023 11:54 AM CDT Temperature 36.6 ??C (97.8 ??F) 12/16/2023 11:54 AM C DT Respiratory Rate - - Oxygen Saturation 100% 12/16/2023 11:54 AM CDT Inhaled Oxygen Concentration - - Weight 57.2 kg (126 lb) 12/16/2023 11:54 AM CDT Height - - Body Mass Index 22.32 12/04/2023 2:14 PM CDT documented in this encounter Progress Notes * Litzy Mckeon MD - 12/16/2023 11:30 AM CDT Assessment & Plan Routine screening for STI (sexually transmitted infection) Exposure to chlamydia Patient presents to clinic for STI screening in the setting of known exposure to chlamydia. She developed chlamydia after intercourse with this partner in the past; she was treated, but he never had treatment for this infection. She denies vaginal discharge, dyspareunia, but does note intermittent mild lower abdominal pain which she experienced with her prior infection. She would like to have complete STI screening today. Discussed empiric treatment for chlamydia with known exposure, which she agrees to do. Will treat with one week of doxycycline for empiric chlamydia treatment. - Wet prep - Clinic Collect - Chlamydia trachomatis/Neisseria gonorrhoeae by PCR - Clinic Collect - HIV Antigen Antibody Combo - Treponema Abs w Reflex to RPR and Titer - doxycycline hyclate (VIBRAMYCIN) 100 MG capsule Dispense: 14 capsule; Refill: 0 Litzy Mkceon MD [facility] Grullon is a 23 year old female who presents to clinic today for the following health issues: Chief Complaint Patient presents with Exposure to STD Poss chlamydia- stomach discomfort/ if anything is prescribe would like capsule medications HPI STD check - Reason for check: Known exposure to chlamydia. - Had chlamydia from this partner before. Yadi was treated but the partner never was. - # of sex partners: One partner - Gender identity of sex partners: Male partner - STD history: Chlamydia. No history of gonorrhea. - Symptoms: - Dysuria: No - Dyspareunia: No - Vaginal discharge: No - Skin changes: No - Notes lower abdomen tenderness - LMP: One month ago. Due for period soon, periods are irregular. Review of Systems Constitutional, HEENT, cardiovascular, pulmonary, gi and gu systems are negative, except as otherwise noted. Objective BP 126/76 Pulse 70 Temp 97.8 ??F (36.6 ??C) Wt 57.2 kg (126 lb) LMP 11/08/2023 (Approximate) SpO2 100% BMI 22.32 kg/m?? Physical Exam GENERAL: alert and no distress EYES: Eyes grossly normal to inspection RESP: No increased work of breathing noted ABDOMEN: soft, nontender, no hepatosplenomegaly, no masses and bowel sounds normal MS: no gross musculoskeletal defects noted, no edema documented in this encounter Plan of Treatment Scheduled Orders Name Type Priority Associated Diagnoses Orde r Schedule HIV Antigen Antibody Combo Lab Routine Routine screening for STI (sexually transmitted infection) Expected: 12/16/2023 (Approximate), Expires: 12/15/2024 Treponema Abs w Reflex to RPR and Titer Lab Routine Routine screening for STI (sexually transmitted infection) Expected: 12/16/2023 (Approximate), Expires: 12/15/2024 documented as of this encounter Procedures Procedure Name Priority Date/Time Associated Diagnosis Comments WET PREPARATION Routine 12/16/2023 12:26 PM CDT Routine screening for STI (sexually transmitted infection) CHLAMYDIA TRACHOMATIS/NEISSERI A GONORRHOEAE BY PCR Routine 12/16/2023 12:25 PM CDT Routine screening for STI (sexually transmitted infection) documented in this encounter Results * (ABNORMAL) Wet prep - Clinic [...] LAB - MICRO GENERAL ORDERABLES [facility]AT[facility] [address] [facility] [address] [place] [address], [facility] [phone] * Chlamydia trachomatis/Neisseria gonorrhoeae by PCR - Clinic Collect (12/16/2023 12:25 PM CDT) Chlamydia Trachomatis Negative Negative 12/17/2023 1:02 PM CDT [facility] Comment: Negative for C. trachomatis rRNA by cigarette lighter repairer mediated amplification. A negative result by cigarette lighter repairer mediated amplification does not preclude the presence of infection because results are dependent on proper and adequate collection, absence of inhibitors and sufficient rRNA to be detected. Neisseria gonorrhoeae Negative Negative 12/17/2023 1:02 PM CDT [facility] Comment:Negative for N. gono rrhoeae rRNA by cigarette lighter repairer mediated amplification. A negative result by cigarette lighter repairer mediated amplification does not preclude the presence of C. trachomatis infection because results are dependent on proper and adequate collection, absence of inhibitors and sufficient rRNA to be detected. Urine VOIDED URINE SPECIMEN / Unknown Non-blood Collection / Unknown 12/16/2023 12:25 PM CDT 12/16/2023 12:25 PM CDT Litzy Mckeon MD LAB - MICRO GENERAL ORDERABLES [facility] Inf. Diseases Diag. Lab [address] [facility] [place] [address] documented in this encounter Visit Diagnoses Diagnosis Routine screening for STI (sexually transmitted infection)- Primary Screening examination for venereal disease Exposure to chlamydia Contact with or exposure to venereal diseases documented in this encounter Additional Health Concerns Assessment Noted Time PHQ-9 Depression Total Score: 5 10/20/19 24 9:22 AM CDT documented as of this encounter Care Teams Oracle Manager Relationship Specialty [place] [address] [place] [address] PCP - General Family Practice 11/27/18 [place] [address] [place] [address] Assigned PCP 05/11/20 01/12/24 Jackelyn Carrera MD [address] [place] [address] neurophysiological technician 10/21/23 Litzy Vergara PA-C [address] [place] [address] Physician Fire Adjuster Family Medicine 10/21/23 Jackelyn Carrera MD [address] [place], [place] [address] Assigned OBGYN Provider 11/13/23 documented as of this encounter
--- OUTSIDE RECORDS SUMMARY | 2024-02-06 00:34 | XMS_ITS | Encounter Summary ---
Author Organization [place] Address [address] [place] [address]. [place] [address] Care Team Providers Care Raised Printer Name Role Phone Leslie Silvestre MD Primary Care Provider [phone] Leslie Silvestre MD Unavailable [phone] Jackelyn Carrera MD Unavailable [phone] Litzy Vergara PA-C Unavailable [phone] Jackelyn Carrera MD Unavailable [phone] Vi La PA-C Unavailable [phone] Encounter Details Date Type Department Care Team (Late st Contact Info) Description 02/04/2022 MyC Medical Advice [facility] [id number] [place] [phone] [place] Silvestre [place] [id number] [place] [address] Social History Tobacco Use Types Packs/Day [...] things needed for daily living? No 06/28/2019 Salcha Depression Scale Answer Date Recorded Salcha Depression Score 0 12/07/2018 Last EPDS Self Harm Result Not on file 12/07 Education Answer Date Recorded What is the highest level of school you have completed or the highest degree you have received? 12th grade 06/28/2019 Sex and Gender Information Value Date Recorded Sex Assigned at Female 06/28/2018 11:22 AM SUPERVISOR FABRICATION AND ASSEMBLY Gender Identity Female 06/28/2018 11:22 AM SUPERVISOR FABRICATION AND ASSEMBLY Sexual Orientation Not on file documented as of this encounter Miscellaneous Notes * Telephone Encounter - Veronika Gaines - 02/08/2022 4:00 PM CDT Form is completed and placed in the [email or web address] station , will wait for patient to call back to see if she would like to pick it up or wants us to fax form . Called patient LVM. Veronika Eder Translator Deaf * Telephone Encounter - Leslie Silvestre MD [...] Score: 5 04/30/20 20 3:13 PM SUPERVISOR FABRICATION AND ASSEMBLY documented as of this encounter Care Teams Raised Printer Relationship Specialty [place] [address] [place] [address] PCP - General Family Practice 11/27/18 [place] [address] [place] [address] Assigned PCP 05/11/20 01/12/24 Jackelyn Carrera MD [address] [place] [address] neuropsychology director 10/21/23 Litzy Vergara PA-C [address] [place] [address] Physician Public Relations Officer Family Medicine 10/21/23 Jackelyn Carrera MD [address] [place] [address] Assigned OBGYN Provider 11/13/23 Vi La PA-C [address] [place] [address] Assigned PCP 01/13/24 documented as of this encounter
--- OUTSIDE RECORDS SUMMARY | 2024-02-06 00:34 | XMS_ITS | Encounter Summary ---
Author Organization [place] Address [address] [place] [address]. [place] [address] Care Team Providers Care Customer Advisor Specialist Name Role Phone Leslie Silvestre MD Primary Care Provider [phone] Leslie Silvestre MD Unavailable [phone] Jackelyn Carrera MD Unavailable [phone] Litzy Vergara PA-C Unavailable Jackelyn Carrera MD Unavailable [phone] Vi La PA-C Unavailable [phone] Reason for Visit * Reason Onset Date Comments MyChart Communication 11/12/2020 Encounter Details Date Type Department Care Team (Latest Contact Info) Description 11/12/2020 MyC Medical Advice [facility] [id number] [place] [phone] [place] Silvestre [place] [id number] [place] [address] MyChart Communication Social History Tobacco Use [...] Answer Date Recorded PHQ-2 Score 0 08/28/2020 [facility] - Occupational Stress Questionnaire Answer Date [...] things needed for daily living? No 06/28/2019 Hamilton Depression Scale Answer Date Recorded Hamilton Depression Score 0 12/07/2018 Last EPDS Self Harm Result Not on file 12/07 Education Answer Date Recorded What is the highest level of school you have completed or the highest degree you have received? 12th grade 06/28/2019 Sex and Gender Information Value Date Recorded Sex Assigned at Female 06/28/2018 11:22 AM STAINED GLASS GLAZIER Gender Identity Female 06/28/2018 11:22 AM STAINED GLASS GLAZIER Sexual Orientation Not on file COVID-19 Exposure [...] message to triage for review. Harjeet Connolly FREIGHT CAR LOADER ([facility]) documented in this encounter Plan of Treatment Not on file documented as of this encounter Visit Diagnoses Not on filedocumented in this encounter Additional Health Concerns Assessment Noted Time PHQ-9 Depression Total Score: 5 04/30/20 20 3:13 PM STAINED GLASS GLAZIER documented as of this encounter Care Teams Customer Advisor Specialist Relationship Specialty [place] [address] [place] [address] PCP - General Family Practice 11/27/18 [place] [address] [place] [address] Assigned PCP 05/11/20 01/12/24 Jackelyn Carrera MD [address] [place], [place] [address] portable irrigation operator 10/21/23 Litzy Vergara PARupertoC [address] [place], [place] [id number] Physician Trailer Tank Truck Driver Family Medicine 10/21/23 Jackelyn Carrera MD [address] [place], [place] [address] Assigned OBGYN Provider 11/13/23 Vi La PA-C [address] [place] [id number] Assigned PCP 01/13/24 documented as of this encounter
--- OUTSIDE RECORDS SUMMARY | 2024-02-06 00:34 | XMS_ITS | Encounter Summary ---
Author Organization [place] Address [address] [place] [address] Care Team Providers Care Buckshot Swage Operator Name Role Phone Leslie Silvestre MD Primary Care Provider [phone] Leslie Silvestre MD Unavailable [phone] Jackelyn Carrera MD Unavailable [phone] Litzy Vergara PA-C Unavailable Jackelyn Carrera MD Unavailable [phone] Reason for Visit * Reason Comments Abdominal Pain Encounter Details Date Type Department Care Team (Late st Contact Info) Description 12/04/2023 2:14 PM CDT - 12/04/2023 4:48 PM CDT Emergency [facility] Emergency Dept [address] [place] [phone] Ramos Gomez MD [facility] [address] [place] [address] Discharge Disposition: Left Without Being Seen Social [...] How often do you attend chur or sabianist services? Never 08/03/2023 Do you belong to [...] Answer Date Recorded PHQ-2 Score 0 10/20/2023 [facility] - Occupational Stress Questionnaire Answer [...] exercise at this level? 30 min 08/03/2023 Eunice Depression Scale Answer Date Recorded Eunice Depression Score 0 12/07/2018 Last EPDS Self [...] Assigned at Female 06/28/2018 11:22 AM COMMERCIAL LINES INSURANCE AGENT Gender Identity Female 06/28/2018 11:22 AM COMMERCIAL LINES INSURANCE AGENT Sexual Orientation Not on file documented as of this encounter Last Filed Vital Signs Vital Sign Reading Time Taken Comments Blood Pressure 128/86 12/04/2023 2:14 PM CDT Pulse 88 12/04/2023 2:14 PM CDT Temperature 37 ??C (98.6 ??F) 12/04/2023 2:14 PM CDT Respiratory Rate 18 12/04/2023 2:14 PM CDT Oxygen Saturation 99% 12/04/2023 2:14 PM CDT Inhaled Oxygen Concentration - - Weight 57.2 kg (126 lb) 12/04/2023 2:14 PM CDT Height 160 cm (5' 3) 12/04/2023 2:14 PM CDT Body Mass Index 22.32 12/04/2023 2:14 PM CDT documented in this encounter Medications at Time of Discharge Medication Sig Dispensed Refills Start Date End Date norethindrone-ethinyl estradiol (MICROGESTIN 1.5) 1.5-30 MG-MCG tabletIndications:Encounte r for other contraceptive management Take 1 tablet by mouth daily 84 tablet 3 10/20/2023 documented as of this encounter ED Notes * Espinoza Tuttle RN - 12/04/2023 2:16 PM CDT Patient with RLQ pain that started last night, has hx of ovarian cysts. documented in this encounter Plan of Treatment Not on file documented as of this encounter Procedures Procedure Name Priority Date/Time Associated Diagnosis Comments CBC WITH PLATELETS AND DIFFERENTIAL STAT 12/04/2023 2:24 PM CDT ROUTINE UA WITH MICROSCOPIC REFLEX TO CULTURE STAT 12/04/2023 2:24 PM CDT CBC WITH PLATELETS & DIFFERENTIAL STAT 12/04/2023 2:24 PM CDT HCG QUALITATIVE STAT 12/04/2023 2:24 PM CDT BASIC METABOLIC PANEL STAT 12/04/2023 2:24 PM CDT documented in this encounter Results * (ABNORMAL) CBC with platelets and differential (12/04/2023 2:24 PM CDT) WBC Count 5.8 4.0 - 11.0 10e3/uL [...] MD LAB - BLOOD ORDER [facility] [address] floor, [address] [place] [address], [facility] [phone] * HCG QUALitative (blood) (12/04/2023 2:24 PM CDT) hCG Serum Qualitative Negative Negative SHARRON 12/04/2023 2:47 PM CDT LABORATORY Comment:This test is for scr eening purposes. Results should be interpreted along with the clinical picture. Confirmation testing is available if warranted by ordering [id number], HCG Quantitative . Blood BLOOD SPECIMEN / Unknown Venipuncture / Unknown 12/04/2023 2:24 PM CDT 12/04/2023 2:32 PM CDT Ascencion Ferguson MD LAB - BLOOD ORDER [facility] [address], [address] [place] [address], [facility] [phone] * Basic metabolic panel (12/04/2023 2:24 PM CDT) Pathologist [facility] Sodium 138 135 - 145 mmol/L 12/04/2023 [...] 12/04/2023 3:02 PM CDT LABORATORY Comment:eGFR calculated usin 2020 CKD-EPI equation. Calcium 9.6 8.6 - 10.0 mg/dL 12/04/2023 3:02 PM CDT LABORATORY Glucose 79 70 - 99 mg/dL 12/04/2023 3:02 PM CDT LABORATORY Blood BLOOD SPECIMEN / Unknown Venipuncture / Unknown 12/04/2023 2:24 PM CDT 12/04/2023 2:33 PM CDT Ascencion Ferguson MD LAB - BLOOD ORDER [facility] [address], [address] [place] [address], [facility] [phone] * (ABNORMAL) UA with Microscopic reflex to [...] mg/dL 12/04/2023 2:50 PM CDT LABORATORY Specific [place] Urine 1.013 1.003 - 1.035 12/04/2023 2:50 [...] MD LAB - URINE ORDER [facility] [address] floor, [address] [place] [address], [facility] [phone] documented in this encounter Visit Diagnoses Not on filedocumented in this encounter Additional Health Concerns Assessment Noted Time PHQ-9 Depression Total Score: 5 10/20/19 24 9:22 AM CDT documented as of this encounter Care Teams Buckshot Swage Operator Relationship Specialty [place] [address] [place] [address] PCP - General Family Practice 11/27/18 Leslie Silvestre [place] [id number] [place] [address] Assigned PCP 05/11/20 01/12/24 Jackelyn Carrera MD [address] [place] [address] shirt line operator 10/21/23 Litzy Vergara PA-C [address] [place], [place] [id number] Physician Grinding Room Supervisor Family Medicine 10/21/23 Jackelyn Carrera MD [address] [place] [address] Assigned OBGYN Provider 11/13/23 documented as of this encounter
--- OUTSIDE RECORDS SUMMARY | 2024-02-06 00:34 | XMS_ITS | Encounter Summary ---
Author Organization [place] Address [address] [place] [address]. [place] [address] Care Team Providers Care Beater Room Helper Name Role Phone Leslie Silvestre MD Primary Care Provider [phone] Leslie Silvestre MD Unavailable [phone] Jackelyn Carrera MD Unavailable [phone] Litzy Vergara PA-C Unavailable [phone] Jackelyn Carrera MD Unavailable [phone] Vi La PA-C Unavailable [phone] Encounter Details Date Type Department Care Team (Late st Contact Info) Description 04/20/2021 MyC Medical Advice [address] [place] [address] Liz Stern, RN Social History [...] and Family Once a week 06/28/2019 Attends Congregational Services Never 06/28 Active Member of Clubs [...] Answer Date Recorded PHQ-2 Score 0 08/28/2020 [facility] - Occupational [...] things needed for daily living? No 06/28/2019 Oral Depression Scale Answer Date Recorded Oral Depression Score 0 12/07/2018 Last EPDS Self Harm Result Not on file 12/07 Education Answer Date Recorded What is the highest level of school you have completed or the highest degree you have received? 12th grade 06/28/2019 Sex and Gender Information Value Date Recorded Sex Assigned at Female 06/28/2018 11:22 AM SHOT CORE DRILL OPERATOR Gender Identity Female 06/28/2018 11:22 AM SHOT CORE DRILL OPERATOR Sexual Orientation Not on file COVID-19 Exposure Response Date Recorded In the last month, have you been in contact with someone who was confirmed or suspected to have Coronavirus / COVID-19? No / Unsure 04/23/2021 11:47 AM SHOT CORE DRILL OPERATOR documented as of this encounter Plan of Treatment Not on file documented as of this encounter Visit Diagnoses Not on filedocumented in this encounter Additional Health Concerns Assessment Noted Time PHQ-9 Depression Total Score: 5 04/30/20 20 3:13 PM SHOT CORE DRILL OPERATOR documented as of this encounter Care Teams Beater Room Helper Relationship Specialty [place] [address] [place] [address] PCP - General Family Practice 11/27/18 [place] [address] [place] [address] Assigned PCP 05/11/20 01/12/24 Jackelyn Carrera MD [address] [place] [address] oncology physician assistant 10/21/23 Litzy Vergara PA-C [address] [place] [address] Physician Airport Operations Crew Member Family Medicine 10/21/23 Jackelyn Carrera MD [address] [place] [address] Assigned OBGYN Provider 11/13/23 Vi La PA-C [address] [place] [address] Assigned PCP 01/13/24 documented as of this encounter
--- OUTSIDE RECORDS SUMMARY | 2024-02-06 00:34 | XMS_ITS | Encounter Summary ---
Author Organization [place] Address [address] [place] [address] Care Team Providers Care Entry Level Project Coordinator Name Role Phone Leslie Silvestre MD Primary Care Provider [phone] Leslie Silvestre MD Unavailable Jackelyn Carrera MD Unavailable [phone] Litzy Vergara PA-C Unavailable [phone] Jackelyn Carrera MD Unavailable [phone] Encounter Details Date Type Department Care Team (Latest Contact Info) Description 11/25/2023 Travel Social History Tobacco Use Types Packs/Day [...] often do you attend chur ch or faith services? Never 08/03/2023 Do you belong to any clubs o r organizations such as oriental orthodox groups, unions, fraternal or athletic groups, [...] Answer Date Recorded PHQ-2 Score 0 10/20/2023 [facility] - Occupational Stress [...] exercise at this level? 30 min 08/03/2023 [place] Depression Scale Answer Date Recorded R[place]auer Depression Score 0 12/07/2018 Last EPDS Self [...] Sex Assigned at Female 06/28/2018 11:22 AM PLATEN DRIER OPERATOR Gender Identity Female 06/28/2018 11:22 AM PLATEN DRIER OPERATOR Sexual Orientation Not on file documented as of this encounter Plan of Treatment Not on file documented as of this encounter Visit Diagnoses Not on filedocumented in this encounter Additional Health Concerns Assessment Noted Time PHQ-9 Depression Total Score: 5 10/20/19 24 9:22 AM CDT documented as of this encounter Care Teams Entry Level Project Coordinator Relationship Specialty Start [place] [address] [place] [address] PCP - General Family Practice 11/27/18 [place] [address] [place] [address] Assigned PCP 05/11/20 01/12/24 Jackelyn Carrera MD [address] [place] [address] new car inspector 10/21/23 Litzy Vergara PA-C [address] [place] [address] Physician Regulatory Services Consultant Family Medicine 10/21/23 Jackelyn Carrera MD [address] [place] [address] Assigned OBGYN Provider 11/13/23 documented as of this encounter
--- OUTSIDE RECORDS SUMMARY | 2024-02-06 00:34 | XMS_ITS | Encounter Summary ---
Author Organization [place] Address [address] [place] [address] Care Team Providers Care Claim Approver Name Role Phone Leslie Silvestre MD Primary Care Provider [phone] Leslie Silvestre MD Unavailable [phone] Jackelyn Carrera MD Unavailable [phone] Litzy Vergara PA-C Unavailable [phone] Jackelyn Carrera MD Unavailable [phone] Encounter Details Date Type Department Care Team (Latest Contact Info) Description 12/04/2023 Travel Social History Tobacco Use Types Packs/Day [...] often do you attend chur ch or holiness services? Never 08/03/2023 Do you belong to any clubs o r organizations such as yarsanism groups, unions, fraternal or athletic groups, or [...] Answer Date Recorded PHQ-2 Score 0 10/20/2023 [facility] - Occupational [...] exercise at this level? 30 min 08/03/2023 [place] Depression Scale Answer Date Recorded [place] Depression Score 0 12/07/2018 Last EPDS Self [...] Assigned at Female 06/28/2018 11:22 AM MANAGER PROGRAMS Gender Identity Female 06/28/2018 11:22 AM MANAGER PROGRAMS Sexual Orientation Not on file documented as of this encounter Plan of Treatment Not on file documented as of this encounter Visit Diagnoses Not on filedocumented in this encounter Additional Health Concerns Assessment Noted Time PHQ-9 Depression Total Score: 5 10/20/19 24 9:22 AM CDT documented as of this encounter Care Teams Claim Approver Relationship Specialty [place] [address] [place] [address] PCP - General Family Practice 11/27/18 [place] [address] [place] [address] Assigned PCP 05/11/20 01/12/24 Jackelyn Carrera MD [address] [place] [address] ribbon hanking machine operator 10/21/23 Litzy Vergara PA-C [address] [place] [address] Physician Forest Management Professor Family Medicine 10/21/23 Jackelyn Carrera MD [address] [place] [address] Assigned OBGYN Provider 11/13/23 documented as of this encounter
--- OUTSIDE RECORDS SUMMARY | 2024-02-06 00:34 | XMS_ITS | Referral Summary ---
Author Organization [place] Address [address] [place] [address] Care Team Providers Care Front Office Medical Assistant Name Role Phone Leslie Silvestre MD Primary Care Provider [phone] Jackelyn Carrera MD Unavailable [phone] Litzy Vergara PA-C Unavailable Jackelyn Carrera MD Unavailable [phone] Vi La PA-C Unavailable [phone] Encounters Date Type Department Care Team Description 12/28/2023 Telephone [facility] [address] [place] [address] Jackelyn Carrera MD Blood Draw (Patient needs labs before appointment 01/01) 12/16/2023 Travel 12/16/2023 11:30 AM CDT Office Visit [facility] [address] [place] [address] Litzy Mckeon MD Routine screening for STI (sexually transmitted infection) (Primary Dx); Exposure to chlamydia 12/04/2023 Travel 12/04/2023 2:14 PM CDT - 12/04/2023 4:48 PM CDT Emergency [facility] Emergency Dept [facility] [place] [address] Ramos Gomez MD Discharge Disposition: Left Without Being Seen 11/25/2023 Travel 11/25/2023 2:22 AM CDT - 11/25/2023 2:51 AM CDT Emergency [facility] Emergency Dept [address] [place] [address] Pepito Lima MD Discharge Disposition: Home or Self Care 11/08/2023 MyC Medical Advice [facility] [place] [address] [place] [address] Jackelyn Carrera MD from Last 3 Months Allergies Active Allergy Reactions Criticality Noted Date Comments No Known Drug Allergy 12/10/2002 Medications Medication Sig Dispensed Refills Start Date End Date Status norethindrone-ethiny l estradiol (MICROGESTIN 1.530) 1.5-30 MG-MCG [...] you attend chur or anabaptism services? Never 08/03/2023 Do you [...] Answer Date Recorded PHQ-2 Score 0 10/20/2023 [facility] - [...] exercise at this level? 30 min 08/03/2023 [place] Depression Scale Answer Date Recorded [place] Depression Score 0 12/07/2018 Last EPDS Self [...] in an abandoned building, in an overnight usp, or couch-surfing.) Yes 08/03/2023 Are you worried [...] Sex Assigned at Female 06/28/2018 11:22 AM SANIPRACTIC PHYSICIAN Gender Identity Female 06/28/2018 11:22 AM SANIPRACTIC PHYSICIAN Sexual Orientation Not on file Last Filed [...] 12/04/2023 2:14 PM CDT Plan of Treatment Not on file [...] QUANT AND GENOTYPE Routine 04/30/2020 4:18 PM SANIPRACTIC PHYSICIAN Need for hepatitis C screening test from [...] LAB - MICRO GENERAL ORDERABLES [facility] [place] [facility] [address] [facility] [address] [place] [address], [facility] [phone] * Chlamydia trachomatis/Neisseria gonorrhoeae by PCR - Clinic Collect (12/16/2023 12:25 PM CDT) Chlamydia Trachomatis Negative Negative 12/17/2023 1:02 PM CDT [facility] Comment: Negative for C. trachomatis rRNA by sales trainer mediated amplification. A negative result by sales trainer mediated amplification does not preclude the presence of infection because results are dependent on proper and adequate collection, absence of inhibitors and sufficient rRNA to be detected. Neisseria gonorrhoeae Negative Negative 12/17/2023 1:02 PM CDT [facility] Comment:Negative for N. gono rrhoeae rRNA by sales trainer mediated amplification. A negative result by sales trainer mediated amplification does not preclude the presence of C. trachomatis infection because results are dependent on proper and adequate collection, absence of inhibitors and sufficient rRNA to be detected. Urine VOIDED URINE SPECIMEN / Unknown Non-blood Collection / Unknown 12/16/2023 12:25 PM CDT 12/16/2023 12:25 PM CDT Litzy Mckeon MD LAB - MICRO GENERAL ORDERABLES [facility] Inf. Diseases Diag. Lab [address] [facility], [address] [place], [place] [phone] * (ABNORMAL) CBC with platelets and [...] MD LAB - BLOOD ORDER [facility] Acute Care Lab [address] 1st floor, [address] [place] [address], [place] [phone] * (ABNORMAL) UA with Microscopic reflex to [...] mg/dL 12/04/2023 2:50 PM CDT LABORATORY Specific [place] Urine 1.013 1.003 - 1.035 12/04/2023 2:50 [...] MD LAB - URINE ORDER [facility] Acute Care Lab [address] 1st floor, [address] [place] [address], [facility] [phone] * HCG QUALitative (blood) (12/04/2023 2:24 PM CDT) hCG Serum Qualitative Negative Negative SH[place] 12/04/2023 2:47 PM CDT LABORATORY Comment:This test is for scr eening purposes. Results should be interpreted along with the clinical picture. Confirmation testing is available if warranted by ordering [id number], HCG Quantitative . Blood BLOOD SPECIMEN / Unknown Venipuncture / Unknown 12/04/2023 2:24 PM CDT 12/04/2023 2:32 PM CDT Ascencion Ferguson MD LAB - BLOOD ORDER [facility] Acute Care Lab [address] 1st floor, [address], [place] [address], [facility] [phone] * Basic metabolic panel (12/04/2023 2:24 PM [...] MD LAB - BLOOD ORDER [facility] Care Lab [address] 1[address] floor, [address] [place] [address], [facility] [phone] * Pap Screen only - recommended age [...] component of this testing was completed at [facility] 03/19/2022 2:52 PM CDT SPECIALTY LABS Brushing CERVIX UTERI STRUCTURE / Unknown 03/17/2022 8:26 AM CDT 03/17/2022 8:56 AM CDT Litzy MARTINEZ AP [facility] [address] [facility] [place], [address] [place], [place] [phone], [facility] [phone] * HIV Antigen Antibody Combo (10/29/2020 5:03 PM CDT) HIV Antigen Antibody Combo Nonreactive NR^Nonrea ctive 10/30/2020 3:42 PM CDT [facility] Comment:HIV-1 p24 Ag & HIV-1 /HIV-2 Ab Not Detected Blood 10/29/2020 5:03 PM CDT 10/29/2020 5:04 PM CDT Leslie Silvestre MD LAB - BLOOD ORDERABL ES Performing Organization Address [facility]/ZIP Co de Phone Number [address] [address] * Hepatitis C Screen Reflex to HCV RNA Quant and Genotype (04/30/2020 4:18 PM SANIPRACTIC PHYSICIAN) Hepatitis C Antibody Nonreactive NR^Nonre active 05/02/2020 10:31 AM SANIPRACTIC PHYSICIAN [facility] Comment: Assay performance characteristics have not been established for newborns, infants, and children Blood specimen (specimen) 04/30/2020 4:18 PM SANIPRACTIC PHYSICIAN 04/30/2020 4:19 PM SANIPRACTIC PHYSICIAN Leslie Silvestre MD LAB - BLOOD ORDERABL ES [facility] [address] [place] [address] from Last 3 Months or Most Recently Relevant to Health Maintenance Care Teams Front Office Medical Assistant Relationship Specialty [place] [address] [place] [address] PCP - General Family Practice 11/27/18 Jackelyn Carrera MD [address] [place] [address] ambulance officer 10/21/23 Litzy Vergara PA-C [address] [place], [place] [phone] Physician Wellness Program Coordinator Family Medicine 10/21/23 Jackelyn Carrera MD [address] [place] [address] Assigned OBGYN Provider 11/13/23 Vi La PA-C [address] [place] [phone] Assigned PCP 01/13/24
--- OUTSIDE RECORDS SUMMARY | 2024-02-06 00:34 | XMS_ITS | Encounter Summary ---
Author Organization [place] Address [address] [place] [address]. [place] [address] Care Team Providers Care Cable Ferryboat Operator Name Role Phone Leslie Silvestre MD Primary Care Provider [phone] Leslie Silvestre MD Unavailable [phone] Jackelyn Carrera MD Unavailable [phone] Litzy Vergara PA-C Unavailable Jackelyn Carrera MD Unavailable [phone] Reason for Visit * Reason Comments Exposure to STD Pt just finished zen atment for chlamydia. Tonight during intercourse boyfriend started bleeding. Pt comes in to make sure treatment was effective. Encounter Details Date Type Department Care Team (Late st Contact Info) Description 11/25/2023 2:22 AM CDT - 11/25/2023 2:51 AM CDT Emergency [facility] Emergency Dept [address] [place] [address] Pepito Lima MD [facility] [address] [facility] [address] [place] [address] Discharge Disposition: Home or Self Care Social [...] often do you attend chur ch or amish services? Never 08/03/2023 Do you belong to any clubs o r organizations such as muslim groups, unions, fraternal or athletic groups, or [...] Answer Date Recorded PHQ-2 Score 0 10/20/2023 [facility] - Occupational [...] exercise at this level? 30 min 08/03/2023 [place] Depression Scale Answer Date Recorded [place] Depression Score 0 12/07/2018 Last EPDS Self [...] Sex Assigned at Female 06/28/2018 11:22 AM STEEL DIE PRINTER Gender Identity Female 06/28/2018 11:22 AM STEEL DIE PRINTER Sexual Orientation Not on file documented as of this encounter Last Filed Vital Signs Vital Sign Reading Time Taken Comments Blood Pressure 126/70 11/25/2023 2:24 AM CDT Pulse 95 11/25/2023 2:24 AM CDT Temperature 36.8 ??C (98.3 ??F) 11/25/2023 2:24 AM CD T Respiratory Rate 18 11/25/2023 2:24 AM CDT Oxygen Saturation 98% 11/25/2023 2:24 AM CDT Inhaled Oxygen Concentration - - Weight 57.6 kg (127 lb) 11/25/2023 2:24 AM CDT Height 160 cm (5' 3) 11/25/2023 2:24 AM CDT Body Mass Index 22.5 11/25/2023 2:24 AM CDT documented in this encounter Medications at Time of Discharge Medication Sig Dispensed Refills Start Date End Date norethindrone-ethinyl estradiol (MICROGESTIN 1.5/30) 1.5-30 MG-MCG tabletIndications:Encounte r for other contraceptive management Take 1 tablet by mouth daily 84 tablet 3 10/20/2023 documented as of this encounter ED Notes * Evelyn Yepez, RN - 11/25/2023 2:25 AM CDT Pt comes in wanting STD testing. Finished treatment recently for chlamydia but during sex tonight her partner started bleeding so she became concerned. Triage Assessment (Adult) Row Name 11/25/23 0224 Triage Assessment Airway WDL WDL Respiratory WDL Respiratory WDL WDL Skin Circulation/Temperature WDL Skin Circulation/Temperature WDL WDL Cardiac WDL Cardiac WDL WDL Peripheral/Neurovascular WDL Peripheral Neurovascular WDL WDL Cognitive/Neuro/Behavioral WDL Cognitive/Neuro/Behavioral WDL WDL documented in this encounter Plan of Treatment Not on file documented as of this encounter Visit Diagnoses Not on filedocumented in this encounter Additional Health Concerns Assessment Noted Time PHQ-9 Depression Total Score: 5 10/20/19 24 9:22 AM CDT documented as of this encounter Care Teams Cable Ferryboat Operator Relationship Specialty Start [place] [address] [place] [address] PCP - General Family Practice 11/27/18 [place] [address] [place] [address] Assigned PCP 05/11/20 01/12/24 Jackelyn Carrera MD [facility] [place] [address] fire apparatus engineer 10/21/23 Litzy Vergara, MACIEJC [address] [place] [address] Physician Goal Umpire Family Medicine 10/21/23 Jackelyn Carrera MD [address] [place] [address] Assigned OBGYN Provider 11/13/23 documented as of this encounter
--- OUTSIDE RECORDS SUMMARY | 2024-02-06 00:35 | XMS_ITS | Encounter Summary ---
Author Organization [facility] Address [address] [place] [address] Care Team Providers Care Containers Sales Representative Name Role Phone [facility] Primary Care Provide r No Ref-Primary, Physician Primary Care Provider Natasha Horta APRN XEROX MACHINE OPERATOR Unavailable + Patricia Tobin MD Unavailable + [facility] Primary Care Provider Patricia Tobin MD Unavailable + Roro Garber ANESTHESIA ASSOCIATE Unavailable [phone] No Ref-Primary, Physician Primary Care Provider eLslie Silvestre MD Unavailable [phone] Leslie Silvestre MD Primary Care Provider [phone] Patricia Tobin MD Unavailable + Karen Miller Unavailable Unavailable Leslie Silvestre MD Unavailable [phone] Jackelyn Carrera MD Unavailable [phone] Litzy Vergara PA-C Unavailable [phone] Jackelyn Carrera MD Unavailable [phone] Abhinav Vimiguel Malik PA-C Unavailable [phone] Reason for Visit * Reason Onset Date Comments Medication Question 06/02/2017 Lexapro, Santiago rax Encounter Details Date Type Department Care Team (Late st Contact Info) Description 06/02/2017 MyC Medical Advice [facility], [address] [place] [address] Gonzalez Catalan PA-C [address] [place], [place] [phone] Medication Question (Lexapro, Atarax) Social History Tobacco Use Types Packs/Day Years Used Date Smoking Tobacco: Never Smokeless Tobacco: Never Alcohol Use Standard Drinks/Week Comments No 0 (1 standard drink = 0.6 oz pur e alcohol) Sex and Gender Information Value Date Recorded Sex Assigned at Female 06/28/2018 11:22 AM INSTRUCTOR PSYCHIATRIC AIDE Gender Identity Female 06/28/2018 11:22 AM INSTRUCTOR PSYCHIATRIC AIDE Sexual Orientation Not on file documented as of this encounter Plan of Treatment Not on file documented as of this encounter Visit Diagnoses Not on filedocumented in this encounter Care Teams Containers Sales Representative Relationship Specialty Start Date End Date [facility] [id number] [place] [address] PCP - General 05/28/17 03/29/18 No Ref-Primary, Physician PCP - General 03/30/18 07/02/18 Natasha Horta, SHEEBA XEROX MACHINE OPERATOR [address] [facility] [place] [id number] PCP - Assigned PCP 02/12/18 05/13/18 Patricia Tobin MD PRIMARY ENT [address] [place] [address] PCP - Assigned PCP 05/14/18 07/25/[address] [address] PCP - General Internal Medicine 07/03/18 09/28/18 No Ref-Primary, Physician PCP - General 09/29/18 11/26/18 [place] [address] [facility] [place] [address] PCP - General Family Practice 11/27/18 Patricia Tobin MD [facility] [address] [facility] [address] [place], [place] [address] Assigned PCP 06/11/18 10/14/18 Roro Garber, [facility] Clinic Maple Products Maker Primary Care - CC 07/26/18 [place] [address] [facility] [place] [address] Assigned PCP 10/15/18 12/08/19 Patricia Tobin MD [facility]IMARY ENT [address] [facility] [address] [place] [address] Assigned PCP 12/09/19 05/10/20 Karen Miller Personal Advocate & Liaison (PAL) Family Medicine 04/30/20 08/26/20 [place] [address] [facility] [place] [address] Assigned PCP 05/11/20 01/12/24 Jackelyn Carrera MD [address] [place] [address] coat repair inspector 10/21/23 Litzy Vergara PA-C [address] [place] [address] Physician Immunology Teacher Family Medicine 10/21/23 Jackelyn Carrera MD [address] [place] [address] Assigned OBGYN Provider 11/13/23 Vi La PA-C [address] [place] [address] Assigned PCP 01/13/24 documented as of this encounter
--- OUTSIDE RECORDS SUMMARY | 2024-02-06 00:35 | XMS_ITS | Encounter Summary ---
Author Organization [place] Address [address] [place] [address] Care Team Providers Care Heater Operator Helper Name Role Phone Patricia Tobin MD Unavailable + [facility] Primary Care Provider Patricia Tobin MD Unavailable + Roro Garber ORACLE SOLUTIONS ARCHITECT Unavailable [phone] Ref-Primary, Physician Primary Care Provider Leslie Silvestre MD Unavailable [phone] Leslie Silvestre MD Primary Care Provider Patricia Tobin MD Unavailable + Karen Miller Unavailable Unavailable Leslie Silvestre MD Unavailable [phone] Jackelyn Carrera MD Unavailable [phone] Litzy Vergara PA-C Unavailable Jackelyn Carrera MD Unavailable [phone] Vi La PA-C Unavailable Encounter Details Date Type Department Care Team (Late st Contact Info) Description 07/16/2018 MyC Medical Advice [facility] [address] [place] [address] Tarah Fields CNM NO INFO AVAILABLE 05/13/2022 Social History Tobacco Use Types Packs/Day Years Used Date Smoking Tobacco: Never Smokeless Tobacco: Never Alcohol Use Standard Drinks/Week Comments No 0 (1 standard drink = 0.6 oz pur e alcohol) PHQ-2 Answer Date Recorded PHQ-2 Score 4 07/18/2018 Comments Yes Sex and Gender Information Value Date Recorded Sex Assigned at Female 06/28/2018 11:22 AM TILE LAYER Gender Identity Female 06/28/2018 11:22 AM TILE LAYER Sexual Orientation Not on file documented as of this encounter Miscellaneous Notes * Telephone Encounter - Sridevi Vladez RN - 07/17/2018 8:09 AM CST See other Maicoinhart message. Sridevi Wayne R.N. [facility] LAYER documented in this encounter Plan of Treatment Not on file documented as of this encounter Visit Diagnoses Not on filedocumented in this encounter Additional Health Concerns Assessment Noted Time PHQ-9 Depression Total Score: 12 024 9:03 AM CDT documented as of this encounter Care Teams Heater Operator Helper Relationship Specialty Start Date End Date Patricia Tobin MD PRIMARY [place]NT [address] [place] [address] PCP - Assigned PCP 05/14/18 07/25/18 [facility] - [address] [address] PCP - General Internal Medicine 07/03/18 09/28/18 No Ref-Primary, Physician PCP - General 09/29/18 11/26/18 [place] [address] [facility], [place] [phone] PCP - General Family Practice 11/27/18 Patricia Tobin MD PRIMARY ENT [address] [facility] [address] [place], [place] [address] Assigned PCP 06/11/18 10/14/18 Roro Garber, [facility] Clinic Engineering Technician Parking Primary Care - CC 07/26/18 [place] [address] [place], [place] [address] Assigned PCP 10/15/18 12/08/19 Patricia Tobin MD PRIMARY ENT [address] [facility] [address] [place] [address] Assigned PCP 12/09/19 05/10/20 Karen Miller Personal Advocate & Liaison (PAL) Family Medicine 04/30/20 08/26/20 [place] [address] [place], [place] [id number] Assigned PCP 05/11/20 01/12/24 Jackelyn Carrera MD [facility] [place] [address] fitting room attendant 10/21/23 Litzy Vergara, PA-C [address] [place], [place] [phone] Physician Stone Decorator Family Medicine 10/21/23 Jackelyn Carrera MD [address] [place] [address] Assigned OBGYN Provider 11/13/23 Vi La PA-C [address] [place] [address] Assigned PCP 01/13/24 documented as of this encounter
--- OUTSIDE RECORDS SUMMARY | 2024-02-06 00:35 | XMS_ITS | Encounter Summary ---
Author Organization [place] Address [address] [place] [address] Care Team Providers Care Timber Treatment Plant Operator Name Role Phone [facility] Primary Care Provider Patricia Tobin MD Unavailable + No Ref-Primary, Physician Primary Care Provider Leslie Silvestre MD Unavailable [phone] Leslie Silvestre MD Primary Care Provider [phone] Patricia Tobin MD Unavailable + Karen Miller Unavailable Unavailable Leslie Silvestre MD Unavailable [phone] Jackelyn Carrera MD Unavailable [phone] Litzy Vergara PA-C Unavailable Jackelyn Carrera MD Unavailable [phone] Vi La PA-C Unavailable [phone] Reason for Visit * Reason Onset Date Comments Douglashart Communication 09/16/2018 mel bui Encounter Details Date Type Department Care Team (Latest Contact Info) Description 09/16/2018 Douglas Dickey M [address] [address] [place] [address] [place] [address] MyChart Communication (arm discomfort) Social History Tobacco Use Types Packs/Day Years Used Date Smoking Tobacco: Never Smokeless Tobacco: Never Alcohol Use Standard Drinks/Week Comments No 0 (1 standard drink = 0.6 oz pur e alcohol) PHQ-2 Answer Date Recorded PHQ-2 Score 4 09/18/2018 Comments Yes Sex and Gender Information Value Date Recorded Sex Assigned at Female 06/28/2018 11:22 AM TRUCK DESPATCHER Gender Identity Female 06/28/2018 11:22 AM TRUCK DESPATCHER Sexual Orientation Not on file documented as of this encounter Plan of Treatment Not on file documented as of this encounter Visit Diagnoses Not on filedocumented in this encounter Additional Health Concerns Assessment Noted Time PHQ-9 Depression Total Score: 12 024 9:03 AM CDT documented as of this encounter Care Teams Timber Treatment Plant Operator Relationship Specialty Start Date End Date Clinic - [address] [address] PCP - General Internal Medicine 07/03/18 09/28/18 No Ref-Primary, Physician PCP - General 09/29/18 11/26/18 [place] [address] [place] [address] PCP - General Family Practice 11/27/18 Patricia Tobin MD PRIMARY ENT [address] [place] [address] Assigned PCP 06/11/18 10/14/18 [place] [address] [place] [address] Assigned PCP 10/15/18 12/08/19 Patricia Tobin MD PRIMARY ENT [address] [place], [place] [address] Assigned PCP 12/09/19 05/10/20 Karen Miller Personal Advocate & Liaison (PAL) Family Medicine 04/30/20 08/26/20 [place] [address] [place] [address] Assigned PCP 05/11/20 01/12/24 Jackelyn Carrera MD [address] [place] [address] business systems consultant 10/21/23 Litzy Vergara PA-C [address] [place], [place] [phone] Physician Cook Fast Food Family Medicine 10/21/23 Jackelyn Carrera MD [address] [place] [address] Assigned OBGYN Provider 11/13/23 Vi La PA-C [address] [place] [address] Assigned PCP 01/13/24 documented as of this encounter
--- OUTSIDE RECORDS SUMMARY | 2024-02-06 00:35 | XMS_ITS | Encounter Summary ---
Author Organization [place] Address [address] [place] [address] Care Team Providers Care Pantry Goods Maker Name Role Phone [facility] Primary Care Provider Patricia Tobin MD Unavailable + Roro Garber HAND CLOTH CUTTER Unavailable [phone] Ref-Primary, Physician Primary Care Provider Leslie Silvestre MD Unavailable [phone] Leslie Silvestre MD Primary Care Provider [phone] Patricia Tobin MD Unavailable + Karen Miller Unavailable Unavailable Leslie Silvestre MD Unavailable [phone] Jackelyn Carrera MD Unavailable Litzy Vergara PA-C Unavailable [phone] Jackelyn Crarera MD Unavailable [phone] Vi La PA-C Unavailable [phone] Reason for Visit * Reason Onset Date Comments Care 08/05/2018 palpatations Encounter Details Date Type Department Care Team (Late st Contact Info) Description 08/05/[address] [facility] Women's [address] [place] [address] Tarah Fields CNM NO INFO AVAILABLE 05/13/2022 [...] Assigned at Female 06/28/2018 11:22 AM DIRECTOR INSURANCE Gender Identity Female 06/28/2018 11:22 AM DIRECTOR INSURANCE Sexual Orientation Not on file documented as of this encounter Miscellaneous Notes * Telephone Encounter - Sridevi Valdez RN - 08/07/2018 8:31 AM CDT Do you want a referral to cardiology or for her to see IM for ekg, she has had palpitations again. Sridevi Wayne R.N. [facility] documented in this encounter Plan of Treatment Not on file documented as of this encounter Visit Diagnoses Not on filedocumented in this encounter Additional Health Concerns Assessment Noted Time PHQ-9 Depression Total Score: 12 024 9:03 AM CDT documented as of this encounter Care Teams Pantry Goods Maker Relationship Specialty Start Date End Date Clinic - [address] [address] PCP - General Internal Medicine 07/03/18 09/28/18 No Ref-Primary, Physician PCP - General 09/29/18 11/26/18 [place] [address] [place] [address] PCP - General Family Practice 11/27/18 Patricia Tobin MD PRIMARY ENT [address] [facility] [address] [place], [place] [address] Assigned PCP 06/11/18 10/14/18 Roro Garber, HAND CLOTH CUTTER Clinic Correspondent Primary Care - CC 07/26/18 [place] [address] [facility], [place] [phone] Assigned PCP 10/15/18 12/08/19 Patricia Tobin MD PRIMARY ENT [address] [facility] [address] [place] [address] Assigned PCP 12/09/19 05/10/20 Karen Miller Personal Advocate & Liaison (PAL) Family Medicine 04/30/20 08/26/20 [place] [address] [place], [place] [id number] Assigned PCP 05/11/20 01/12/24 Jackelyn Carrera MD [address] [place] [address] instructional designer 10/21/23 Litzy Vergara PA-C [address] [place], [place] [id number] Physician Turn Down Attendant Family Medicine 10/21/23 Jackelyn Carrera MD [address] [place] [address] Assigned OBGYN Provider 11/13/23 Vi La PA-C [address] [place] [address] Assigned PCP 01/13/24 documented as of this encounter
--- OUTSIDE RECORDS SUMMARY | 2024-02-06 00:35 | XMS_ITS | Encounter Summary ---
Author Organization [place] Address [address] [place] [address] Care Team Providers Care Clinical Informatics Spec Name Role Phone Leslie Silvestre MD Primary Care Provider [phone] Katja Catalan MD Primary Care Provider [facility] Primary Care Provide r No Ref-Primary, Physician Primary Care Provider Natasha Horta TEACHER AIDE PHOTO EQUIPMENT TECHNICIAN Unavailable + Patricia Tobin MD Unavailable + [facility] Primary Care Provider Patricia Tobin MD Unavailable + Roro Garber HELP DESK ENGINEER Unavailable [phone] No Ref-Primary, Physician Primary Care Provider Leslie Silvestre MD Unavailable [phone] Leslie Silvestre MD Primary Care Provider [phone] Patricia Tobin MD Unavailable + Karen Miller Unavailable Unavailable Leslie Silvestre MD Unavailable [phone] Jackelyn Carrera MD Unavailable [phone] VergaraVasyl giraldosylvia Wei PA-C Unavailable [phone] Jackelyn Carrera MD Unavailable [phone] Vi La [place] RENTERIA Unavailable [phone] Encounter Details Date Type Department Care Team (Late st Contact Info) Description 03/30/2003 [facility] [address] [place] [address] [place]re [place] [id number] [place] [address] ER ENCOUNTER (Primary Dx) Social History Tobacco [...] Sex Assigned at Female 06/28/2018 11:22 AM COMPRESSOR OPERATOR ADJUSTER Gender Identity Female 06/28/2018 11:22 AM COMPRESSOR OPERATOR ADJUSTER Sexual Orientation Not on file documented as of this encounter Progress Notes * 03/30/2003 11:59 PM [id number] 00:00 Emergency Department Encounter-[facility] () [[facility] : 98 CHIEF COMPLAINT: Sore throat. HISTORY [...] days. DIAGNOSIS: Acute strep pharyngitis. CONDITION: Stable. #[id number]_ [facility] MD MT: Document: [id number] [place], [place] Name: JACOB ROBLERO Electronically filed by Sarah Liriano 04/01 12:41 PM documented in this encounter Plan of Treatment Not on file documented as of this encounter Visit Diagnoses Diagnosis ER ENCOUNTER- Primary documented in this encounter Care Teams Clinical Informatics Spec Relationship Specialty Start [place] [address] [place] [address] PCP - General 07/22/03 12/17/13 [place] [address] [place] [address] PCP - General Family Practice 12/18/13 05/27/17 [facility] [place] [address] [place] [address] PCP - General 05/28/17 03/29/18 No Ref-Primary, Physician PCP - General 03/30/18 07/02/18 Natasha Horta APRN [facility] [address] [place] [address] PCP - Assigned PCP 02/12/18 05/13/18 Patricia Tobin MD PRIMARY ENT [address] [facility] [address] [place], [place] [address] PCP - Assigned PCP 05/14/18 07/25/[address] [address] PCP - General Internal Medicine 07/03/18 09/28/18 No Ref-Primary, Physician PCP - General 09/29/18 11/26/18 [place] [address] [place] [address] PCP - General Family Practice 11/27/18 Patricia Tobin MD PRIMARY ENT [address] [facility] [address] [place] [address] Assigned PCP 06/11/18 10/14/18 Roro Garber, [facility] Clinic Superintendent Tests Primary Care - CC 07/26/18 [place] [address] [place] [address] Assigned PCP 10/15/18 12/08/19 Patricia Tobin MD PRIMARY ENT [address] [place], [place] [address] Assigned PCP 12/09/19 05/10/20 Karen Miller Personal Advocate & Liaison (PAL) Family Medicine 04/30/20 08/26/20 [place] [address] [place], [place] [phone] Assigned PCP 05/11/20 01/12/24 Jackelyn Carrera MD [address] [place] [address] popcorn candy maker 10/21/23 Ltizy Vergara PA-C [address] [place], [place] [phone] Physician Athletic Monitor Family Medicine 10/21/23 Jackelyn Carrera MD [address] [place] [address] Assigned OBGYN Provider 11/13/23 Vi La PA-C [address] [place] [phone] Assigned PCP 01/13/24 documented as of this encounter
--- OUTSIDE RECORDS SUMMARY | 2024-02-06 00:35 | XMS_ITS | Encounter Summary ---
Author Organization [place] Address [address] [place] [address] Care Team Providers Care Pyrotechnist Name Role Phone Patricia Tobin MD Unavailable + [facility] Primary Care Provider Patricia Tobin MD Unavailable + Roro Garber DEVICE ENGINEER Unavailable [phone] No Ref-Primary, Physician Primary Care Provider Leslie Silvestre MD Unavailable [phone] Leslie Silvestre MD Primary Care Provider [phone] Patricia Tobin MD Unavailable + Karen Miller Unavailable Unavailable Leslie Silvestre MD Unavailable [phone] Jackelyn Carrera MD Unavailable [phone] Litzy Vergara PA-C Unavailable Jackelyn Carrera MD Unavailable Vi La PA-C Unavailable [phone] Reason for Visit * Reason Onset Date Comments Care 07/15/2018 [place] Encounter Details Date Type Department Care Team (Late st Contact Info) Description 07/15/2018 MyC Medical Advice [facility] Women's [address] [place] [address] Tarah Fields CNM NO INFO [...] Assigned at Female 06/28/2018 11:22 AM DIRECTOR INDUSTRIAL MUSEUM Gender Identity Female 06/28/2018 11:22 AM DIRECTOR INDUSTRIAL MUSEUM Sexual Orientation Not on file documented as of this encounter Plan of Treatment Not on file documented as of this encounter Visit Diagnoses Not on filedocumented in this encounter Additional Health Concerns Assessment Noted Time PHQ-9 Depression Total Score: 12 024 9:03 AM CDT documented as of this encounter Care Teams Pyrotechnist Relationship Specialty Start Date End Date Patricia Tobin MD [facility]IMARY ENT [address] [facility] [address] [place] [address] PCP - Assigned PCP 05/14/18 07/25/[address] [address] PCP - General Internal Medicine 07/03/18 09/28/18 No Ref-Primary, Physician PCP - General 09/29/18 11/26/18 [place] [address] [place] [address] PCP - General Family Practice 11/27/18 Patricia Tobin MD PRIMARY ENT [address] [place] [address] Assigned PCP 06/11/18 10/14/18 Roro Garber, SHANTELL Clinic Supervisor Adult Education Primary Care - CC 07/26/18 [place] [address] [place], [place] [address] Assigned PCP 10/15/18 12/08/19 Patricia Tobin MD PRIMARY ENT [address] [facility] [address] [place] [address] Assigned PCP 12/09/19 05/10/20 Karen Miller Personal Advocate & Liaison (PAL) Family Medicine 04/30/20 08/26/20 [place] [address] [place], [place] [address] Assigned PCP 05/11/20 01/12/24 Jackelyn Carrera MD [address] [place], [place] [address] lockstitch pocket setter 10/21/23 Litzy Vergara PA-C [address] [place], [place] [phone] Physician Crayon Sawyer Family Medicine 10/21/23 Jackelyn Carrera MD [address] [place] [address] Assigned OBGYN Provider 11/13/23 Vi La PA-C [address] [place] [address] Assigned PCP 01/13/24 documented as of this encounter
--- OUTSIDE RECORDS SUMMARY | 2024-02-06 00:35 | XMS_ITS | Encounter Summary ---
Author Organization [place] Address [address] [place] [address] Care Team Providers Care All Source Intelligence Analyst Name Role Phone [facility] [place] [facility] Primary Care Provider Patricia Tobin MD Unavailable + No Ref-Primary, Physician Primary Care Provider Leslie Silvestre MD Unavailable [phone] Leslie Silvestre MD Primary Care Provider [phone] Patricia Tobin MD Unavailable + Karen Miller Unavailable Unavailable O'Leslie Enrique MD Unavailable [phone] Jackelyn Carrera MD Unavailable [phone] Litzy Vergara PA-C Unavailable Jackelyn Carrera MD Unavailable [phone] Vi La PA-C Unavailable [phone] Reason for Visit * Reason Onset Date Comments MyChart Communication 09/18/2018 update 08/22 12/08 MyChart message left arm discomfort Encounter Details Date Type Department Care Team (Latest Contact Info) Description 09/18/2018 [facility] M [address] [address] [place] [address] [place] [address] [facility] (update 09/16/18 MyC... Social History Tobacco Use Types Packs/Day Years Used Date Smoking Tobacco: Never Smokeless Tobacco: Never Alcohol Use Standard Drinks/Week Comments No 0 (1 standard drink = 0.6 oz pur e alcohol) PHQ-2 Answer Date Recorded PHQ-2 Score 4 09/18/2018 Comments Yes Sex and Gender Information Value Date Recorded Sex Assigned at Female 06/28/2018 11:22 AM OCCUPATIONAL HYGIENIST Gender Identity Female 06/28/2018 11:22 AM OCCUPATIONAL HYGIENIST Sexual Orientation Not on file documented as of this encounter Plan of Treatment Not on file documented as of this encounter Visit Diagnoses Not on filedocumented in this encounter Additional Health Concerns Assessment Noted Time PHQ-9 Depression Total Score: 12 024 9:03 AM CDT documented as of this encounter Care Teams All Source Intelligence Analyst Relationship Specialty Start Date End Date Clinic - [address] [address] PCP - General Internal Medicine 07/03/18 09/28/18 No Ref-Primary, Physician PCP - General 09/29/18 11/26/18 [place] [address] [place] [address] PCP - General Family Practice 11/27/18 Patricia Tobin MD PRIMARY ENT [address] [place] [address] Assigned PCP 06/11/18 10/14/18 [place] [address] [place] [address] Assigned PCP 10/15/18 12/08/19 Patricia Tobin MD PRIMARY ENT [address] [place] [address] Assigned PCP 12/09/19 05/10/20 Karen Miller Personal Advocate & Liaison (PAL) Family Medicine 04/30/20 08/26/20 [place] [address] [place], [place] [address] Assigned PCP 05/11/20 01/12/24 Jackelyn Carrera MD [address] [place] [address] meter reading clerk 10/21/23 Litzy Vergara PA-C [address] [place], [place] [phone] Physician Chief Specialist [place] Family Medicine 10/21/23 Jackelyn Carrera MD [address] [place] [address] Assigned OBGYN Provider 11/13/23 Vi La PA-C [address] [place] [address] Assigned PCP 01/13/24 documented as of this encounter
--- OUTSIDE RECORDS SUMMARY | 2024-02-06 00:35 | XMS_ITS | Encounter Summary ---
Author Organization [place] Address [address] [place] [address] Care Team Providers Care Capsule Filler Name Role Phone [facility] Primary Care Provider Patricia Tobin MD Unavailable + No Ref-Primary, Physician Primary Care Provider Leslie Silvestre MD Unavailable [phone] Leslie Silvestre MD Primary Care Provider [phone] Patricia Tobin MD Unavailable + Karen Miller Unavailable Unavailable Leslie Silvestre MD Unavailable [phone] Jackelyn Carrera MD Unavailable Litzy Vergara PA-C Unavailable [phone] Jackelyn Carrera MD Unavailable [phone] Vi La PA-C Unavailable [phone] Reason for Visit * Reason Onset Date Comments MyChart Communication 09/18/2018 left arm i ssue Encounter Details Date Type Department Care Team (Latest Contact Info) Description 09/18/2018 [place] [facility] [place] [address] [address] [place] [address] [place] [address] MyChart Communication (left arm issue) Social History Tobacco Use Types Packs/Day Years Used Date Smoking Tobacco: Never Smokeless Tobacco: Never Alcohol Use Standard Drinks/Week Comments No 0 (1 standard drink = 0.6 oz pur e alcohol) PHQ-2 Answer Date Recorded PHQ-2 Score 4 09/18/2018 Comments Yes Sex and Gender Information Value Date Recorded Sex Assigned at Female 06/28/2018 11:22 AM QUALITY ASSURANCE MONITOR BODY Gender Identity Female 06/28/2018 11:22 AM QUALITY ASSURANCE MONITOR BODY Sexual Orientation Not on file documented as of this encounter Plan of Treatment Not on file documented as of this encounter Visit Diagnoses Not on filedocumented in this encounter Additional Health Concerns Assessment Noted Time PHQ-9 Depression Total Score: 12 024 9:03 AM CDT documented as of this encounter Care Teams Capsule Filler Relationship Specialty Start Date End Date Clinic - [address] [address] PCP - General Internal Medicine 07/03/18 09/28/18 No Ref-Primary, Physician PCP - General 09/29/18 11/26/18 [place] [address] [place] [address] PCP - General Family Practice 11/27/18 Patricia Tobin MD PRIMARY ENT [address] [place] [address] Assigned PCP 06/11/18 10/14/18 [place] [address] [place] [address] Assigned PCP 10/15/18 12/08/19 Patricia Tobin MD PRIMARY ENT [address] [place], [place] [address] Assigned PCP 12/09/19 05/10/20 Karen Miller Personal Advocate & Liaison (PAL) Family Medicine 04/30/20 08/26/20 [place] [address] [place], [place] [address] Assigned PCP 05/11/20 01/12/24 Jackelyn Carrera MD [address] [place] [address] lumber straightened 10/21/23 Litzy Vergara PA-C [address] [place], [place] [phone] Physician [place] Family Medicine 10/21/23 Jackelyn Carrera MD [address] [place] [address] Assigned OBGYN Provider 11/13/23 Vi La PA-C [address] [place] [address] Assigned PCP 01/13/24 documented as of this encounter
--- OUTSIDE RECORDS SUMMARY | 2024-02-06 00:35 | XMS_ITS | Encounter Summary ---
Author Organization [place] Address [address] [place] [address]. [place] [address] Care Team Providers Care Trauma Manager Name Role Phone Leslie Silvestre MD Unavailable [phone] Leslie Silvestre MD Primary Care Provider [phone] Patricia Tobin MD Unavailable + Karen Miller Unavailable Unavailable OLeslie Espinosa MD Unavailable [phone] Jackelyn Carrera MD Unavailable [phone] Litzy Vergara PA-C Unavailable Jackelyn Carrera MD Unavailable [phone] Vi La PA-C Unavailable [phone] Reason for Visit * Reason Onset Date Comments Patient Request 12/11/2018 Encounter Details Date Type Department Care Team (Late st Contact Info) Description 12/11/2018 [facility] [address] [place] [phone] [place] [address] [place] [address] Patient Request Social History Tobacco Use Types Packs/Day Years Used Date Smoking Tobacco: Never Smokeless Tobacco: Never Alcohol Use Standard Drinks/Week Comments No 0 (1 standard drink = 0.6 oz pur e alcohol) PHQ-2 Answer Date Recorded PHQ-2 Score 0 11/20/2018 [place] Depression Scale Answer Date Recorded [place] Depression Score 0 12/07/2018 Last EPDS Self Harm Result Not on file 12/07 Sex and Gender Information Value Date Recorded Sex Assigned at Female 06/28/2018 11:22 AM SUPERVISORY CLERK Gender Identity Female 06/28/2018 11:22 AM SUPERVISORY CLERK Sexual Orientation Not on file documented as of this encounter Miscellaneous Notes * Telephone Encounter - Melanie Guevara RN - 12/12/2018 7:09 AM CDT Please see my chart message and response Thank you Melanie Guevara, Registered Nurse [facility] documented in this encounter Plan of Treatment Not on file documented as of this encounter Visit Diagnoses Not on filedocumented in this encounter Additional Health Concerns Assessment Noted Time PHQ-9 Depression Total Score: 12 024 9:03 AM CDT documented as of this encounter Care Teams Trauma Manager Relationship Specialty Start [place] [address] [place] [address] PCP - General Family Practice 11/27/18 [place] [address] [place] [address] Assigned PCP 10/15/18 12/08/19 Patricia Tobin MD PRIMARY ENT [address] [place] [id number] Assigned PCP 12/09/19 05/10/20 Karen Miller Personal Advocate & Liaison (PAL) Family Medicine 04/30/20 08/26/20 [place] [address] [place] [address] Assigned PCP 05/11/20 01/12/24 Jackelyn Carrera MD [address] [place] [address] meter attendant 10/21/23 Litzy Vergara PA-C [address] [place] [address] Physician Furnace Firer Family Medicine 10/21/23 Jackelyn Carrera MD [address] [place] [address] Assigned OBGYN Provider 11/13/23 Vi La PA-C [address] [place] [address] Assigned PCP 01/13/24 documented as of this encounter
--- OUTSIDE RECORDS SUMMARY | 2024-02-06 00:35 | XMS_ITS | Encounter Summary ---
Author Organization [place] Address [address] [place] [address]. [place] [address] Care Team Providers Care Tower Watchman Name Role Phone Leslie Silvestre MD Unavailable [phone] Leslie Silvestre MD Primary Care Provider [phone] Patricia Tobin MD Unavailable + Karen Miller Unavailable Unavailable OLeslie Espinosa MD Unavailable [phone] Jackelyn Carrera MD Unavailable Litzy Vergara PA-C Unavailable [phone] Jackelyn Carrera MD Unavailable [phone] Vi La PA-C Unavailable [phone] Encounter Details Date Type Department Care Team (Late st Contact Info) Description 05/25/2019 MyC Medical Advice [address] [address] Sydni Davalos, FRICTION WELDING MACHINE OPERATOR Social History Tobacco Use Types Packs/Day Years Used Date Smoking Tobacco: Never Smokeless Tobacco: Never Alcohol Use Standard Drinks/Week Comments No 0 (1 standard drink = 0.6 oz pur e alcohol) PHQ-2 Answer Date Recorded PHQ-2 Score 0 11/20/2018 [place] Depression Scale Answer Date Recorded [place] Depression Score 0 12/07/2018 Last EPDS Self Harm Result Not on file 12/07 Sex and Gender Information Value Date Recorded Sex Assigned at Female 06/28/2018 11:22 AM FRAUD ANALYST Gender Identity Female 06/28/2018 11:22 AM FRAUD ANALYST Sexual Orientation Not on file documented as of this encounter Plan of Treatment Not on file documented as of this encounter Visit Diagnoses Not on filedocumented in this encounter Additional Health Concerns Assessment Noted Time PHQ-9 Depression Total Score: 12 024 9:03 AM CDT documented as of this encounter Care Teams Tower Watchman Relationship Specialty Start [place] [address] [place], [place] [phone] PCP - General Family Practice 11/27/18 [place] [address] [place], [place] [address] Assigned PCP 10/15/18 12/08/19 Patricia Tobin MD PRIMARY ENT [address] [place] [address] Assigned PCP 12/09/19 05/10/20 Karen Miller Personal Advocate & Liaison (PAL) Family Medicine 04/30/20 08/26/20 [place] [address] [place] [address] Assigned PCP 05/11/20 01/12/24 Jackelyn Carrera MD [address] [place] [address] colorist formulator 10/21/23 Litzy Vergara, PARupertoC [address] [place] [address] Physician Flight Communications Operator Family Medicine 10/21/23 Jackelyn Carrera MD [address] [place] [address] Assigned OBGYN Provider 11/13/23 Vi La PA-C [address] [place] [phone] Assigned PCP 01/13/24 documented as of this encounter
== END 2024-02-01 18:43 | disposition home or self-care (01) ==
LOC: NFLDREF 02-06 00:30
PROVIDERS: PCP Nurse Practitioner Family; Referring Provider Nurse Practitioner Family; Visit Provider Physician Assistant
DX: Z11.3 Encounter for screening for infections with a predominantly sexual mode of transmission (principal); N39.0 Urinary tract infection, site not specified
CPT/HCPCS: 87086; 87491; 87591

== ENCOUNTER 2024-04-04 10:41 | Emergency (ER) | payer BC, SELFPAY ==
[2024-04-04 10:52] VITALS: BP 145/90; PULSE 80; RESP 18; TEMP 36.2; O2SAT 99; BMI 23.0
--- NOTE | 2024-04-04 11:10 | CRLHL7_ITS ---
For Patients: As a result of the Century Cures Act, medical imaging exams and procedure reports are released immediately into your electronic medical record. You may view this report before your referring provider. If you have questions, please contact your health care provider. INDICATION: Shortness of breath. TECHNIQUE: Chest 2 views. COMPARISON: 03/07/2023. FINDINGS: No pneumothorax or pleural effusion. Lungs are clear. Cardiac and mediastinal contours are within normal limits. Upper abdomen and osseous structures as imaged show no acute abnormality. IMPRESSION: No evidence of acute cardiopulmonary disease. Dictated by Milton Martinez MD @ 04/04/2024 12:08:22 PM (Electronically Signed)
--- OUTSIDE RECORDS SUMMARY | 2024-04-04 11:22 | XMS_ITS | Encounter Summary ---
Author Organization [facility] Address [address] [place] [address]. [place] [address] Care Team Providers Care Papeterie Table Assembler Name Role Phone Leslie Silvestre MD Primary Care Provider Jackelyn Carrera MD Unavailable [phone] Litzy Vergara PA-C Unavailable Jackelyn Carrera MD Unavailable [phone] Vi La PA-C Unavailable [phone] Reason for Visit * Reason Comments Abdominal Pain Encounter Details Date Type Department Care Team (Late st Contact Info) Description 02/16/2024 7:58 PM CDT - 02/17/2024 1:[address] [facility] Emergency Dept [address] [place] [id number] Heath Otero MD [facility] [address] [place], [place] [id number] Pelvic pain in female Discharge Disposition: Home or Self Care Social [...] How often do you attend chur or lutheran services? Never 08/03/2023 Do you belong to any clubs o r organizations such as anabaptism groups, unions, fraternal or athletic groups, or [...] Answer Date Recorded PHQ-2 Score 0 10/20/2023 [facility] - [...] exercise at this level? 30 min 08/03/2023 Leonard Depression Scale Answer Date Recorded Leonard Depression Score 0 12/07/2018 Last EPDS Self [...] in an abandoned building, in an overnight custodial, or couch-surfing.) Yes 08/03/2023 Are you worried [...] degree you have received? 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 Please follow up with [facility] to discuss and arrange follow up testing. Return to the ED with and concerns. Follow up with PCP for recheck of your pain and to discuss further testing. * Attachments The following attachments cannot be sent through Care Everywhere. * Pelvic Pain (Equatorial [place]inean) documented in this encounter Medications at Time of Discharge doxycycline hyclate (VIBRAMYCIN) 100 MG capsuleIndications: Routine screening for STI (sexually transmitted infection),Exposure to chlamydia Take 1 capsule (100 mg) by mouth 2 times daily 14 capsule 12/16/2023 norethindrone-ethin yl estradiol (MICROGESTIN 1.5/30) 1.5-30 MG-MCG tabletIndications:E ncounter for other contraceptive management Take 1 tablet by mouth daily 84 tablet 3 10/20/2023 documented as of this encounter ED Notes * Heath Otero MD - 02/16/2024 11:32 PM CDT Emergency Department Note History of Present Illness Chief Complaint Abdominal Pain HPI Yadi Roblero is a 23 year old female who presents for abdominal pain. For about 3 weeks, patient has been experiencing pain centered at the uterus which radiates through the stomach to the back bilaterally. She states she was at [facility] and tested positive for a yeast infection today. She also notes that over the past 9 months, her periods have become shorter and would result in higher levels of clotting and menstrual bleeding. She notes it is thus more painful. She is sure she is not . Patient has had 2 abortions and a delivery. Independent Historian None Review of External Notes None Past Medical History Medical History and Problem List Past Medical History: Diagnosis Date Abnormal Pap smear of cervix 06/28/2019 Anxiety Blood type AB+ Medications doxycycline hyclate (VIBRAMYCIN) 100 MG capsule norethindrone-ethinyl estradiol (MICROGESTIN 1.5/30) 1.5-30 MG-MCG tablet Surgical History Past Surgical History: Procedure Laterality Date NO HISTORY OF SURGERY Physical Exam Patient Vitals for the past 24 hrs: BP Temp Pulse Resp SpO2 02/16/241958 132/82 98.9 ??F (37.2 ??C) 68 18 100 % Physical Exam Eyes: The pupils are equal and round Conjunctivae and sclerae are normal ENT: The nose is normal Pinnae are normal CV: Regular rate and rhythm No edema Resp: Lungs are clear Non-labored No rales No wheezing GI: Abdomen is soft with tenderness of the low abdomen, just above the pubic symphysis, there is norigidity No distension No rebound tenderness MS: Normal muscular tone No asymmetric leg swelling Skin: No rash or acute skin lesions noted Neuro: Awake, alert. Speech is normal and fluent. Face is symmetric. Moves all extremities Diagnostics Lab Results Labs Ordered and Resulted from Time of ED Arrival to Time of ED Departure ROUTINE UA WITH MICROSCOPIC REFLEX TO CULTURE - Abnormal Result Value Color Urine Light Yellow Appearance Urine Clear Glucose Urine Negative Bilirubin Urine Negative Ketones Urine 10 (*) Specific [place] Urine 1.018 Blood Urine Negative pH Urine 5.5 Protein Albumin Urine Negative Urobilinogen Urine Normal Nitrite Urine Negative Leukocyte Esterase Urine Negative Mucus Urine Present (*) RBC Urine 0 WBC Urine 2 Squamous Epithelials Urine 2 (*) COMPREHENSIVE METABOLIC PANEL - Normal Sodium 137 Potassium 4.0 Carbon Dioxide (CO2) 26 Anion Gap 9 Urea Nitrogen 9.1 Creatinine 0.73 GFR Estimate >90 Calcium 9.5 Chloride 102 Glucose 85 Alkaline Phosphatase 48 AST 15 ALT 12 Protein Total 7.2 Albumin 4.2 Bilirubin Total 0.2 HCG QUALITATIVE - Normal hCG Serum Qualitative Negative CBC WITH PLATELETS AND DIFFERENTIAL WBC Count 5.9 RBC Count 4.56 Hemoglobin 13.1 Hematocrit 39.3 MCV 86 MCH 28.7 MCHC 33.3 RDW 12.0 Platelet Count 222 % Neutrophils 56 % Lymphocytes 36 % Monocytes 7 % Eosinophils 1 % Basophils 1 % Immature Granulocytes 0 NRBCs per 100 WBC 0 Absolute Neutrophils 3.3 Absolute Lymphocytes 2.1 Absolute Monocytes 0.4 Absolute Eosinophils 0.1 Absolute Basophils 0.0 Absolute Immature Granulocytes 0.0 Absolute NRBCs 0.0 Imaging US Pelvis Cmplt w Transvag & Doppler LmtPel Duplex Limited Final Result IMPRESSION: 1. Focal area of mildly heterogeneous echotexture in the medial right ovary demonstrates increased color flow, of unclear etiology or clinical significance. Bilateral ovaries are otherwise normal in size without evidence of ovarian torsion or mass. Short-term follow-up pelvic sonogram in 2-3 menstrual cycles could be considered. Report per radiology. EKG None ED Course Medications Administered Medications - No data to display Procedures Procedures Discussion of Management None ED Course ED Course as of 02/17/24 0119 [facility] Feb 16, 2024 2345 I obtained history and examined the patient as noted above. TueFeb 17, 2024 0118 I re-evaluated patient. I explained findings to the patient and we discussed plan for discharge. The patient is comfortable with this plan. Additional Documentation None Medical Decision Making / Diagnosis [facility] Diagnoses: None MIPS None MDM Yadi Roblero is a 23 year old female who presents to the emergency department with low pelvic and back pain. She notes that her pain has been ongoing for about 3 weeks. [facility] went to [facility] earlier in the day today and had testing. She notes that she is found to have a yeast infection for which she was given treatment. She also had swabs for pelvic infections obtained. They recommendedif she had persistent pain that she come to be evaluated with a pelvic ultrasound. Ultrasound of the pelvis showed some increased vascularity to the right medial ovary. Unclear of the exact significance of this finding. We discussed obtaining a CT scan of the abdomen pelvis to further characterize any other possible causes of her pain, but patient requested discharge. Her vital signs are normal and laboratory workup including CBC were normal as well, so I do not think that foregoing CT scan at this time is unreasonable. We discussed warning signs and return precautions. Advised patient to follow-up with PCP as well as G[facility] due to the ultrasound findings. She was discharged. Disposition The patient was discharged. Diagnosis ICD-10-CM 1. Pelvic pain in female R10.2 Discharge Medications New Prescriptions No medications on file Scribe Disclosure: I, Sonny Dodd, am serving as a scribe at 11:43 PM on 02/16/2024 to document services personally performed by Heath Otero MD, based on my observations and the provider's statements nicole. Heath Otero MD 02/17/24 0223 * Lyric Espinoza RN - 02/16/2024 8:06 PM CDT Patient arrives with abdominal pain. [facility] but positive yeast infection. For the last 9 months has had very irregular periods, shorter but increased bleeding and clots. Pain is lower abdomen and radiates to right side and around back. Did not get her period this month. Triage Assessment (Adult) Row Name 09/26/24 2006 Triage Assessment Airway WDL WDL Respiratory WDL Respiratory WDL WDL Skin Circulation/Temperature WDL Skin Circulation/Temperature WDL WDL Cardiac WDL Cardiac WDL WDL Peripheral/Neurovascular WDL Peripheral Neurovascular WDL WDL Cognitive/Neuro/Behavioral WDL Cognitive/Neuro/Behavioral WDL WDL documented in this encounter Plan of Treatment Not on file documented as of this encounter Procedures Procedure Name Priority Date/Time Associated Diagnosis Comments US PELVIS COMPLETE W TRANSVAGINAL AND DOPPLER LIMITED STAT 02/17/2024 12:34 AM CDT ROUTINE UA WITH MICROSCOPIC REFLEX TO CULTURE STAT 02/16/2024 10:55 PM CDT EXTRA TUBE STAT 02/16/2024 8:15 PM CDT EXTRA PURPLE TOP TUBE STAT 02/16/2024 8:15 PM CDT EXTRA GREEN TOP (LITHIUM HEPARIN) TUBE STAT 02/16/2024 8:15 PM CDT EXTRA RED TOP TUBE STAT 02/16/2024 8: 15 PM CDT CBC WITH PLATELETS AND DIFFERENTIAL STAT 02/16/2024 8:15 PM CDT CBC WITH PLATELETS & DIFFERENTIAL STAT 02/16/2024 8:15 PM CDT HCG QUALITATIVE STAT 02/16/2024 8:15 PM CDT COMPREHENSIVE METABOLIC PANEL STAT 02/16/2024 8:15 PM CDT documented in this encounter Results * US Pelvis Cmplt w Transvag & Doppler LmtPel Duplex Limited (02/17/2024 12:34 AM CDT) Anatomical Region Laterality Modality Abdomen/Pelvis Ultrasound 02/17/2024 12:3 4 AM CDT Impressions 02/17/2024 12:42 AM CDT IMPRESSION: ?? 1. ??Focal area of mildly heterogeneous echotexture in the medial right ovary demonstrates increased color flow, of unclear etiology or clinical significance. Bilateral ovaries are otherwise normal in size without evidence of ovarian torsion or mass. Short-term follow-up pelvic sonogram in 2-3 menstrual cycles could be considered. Narrative 02/17/2024 12:42 AM CDT EXAM: US PELVIS COMPLETE W TRANSVAGINAL AND DOPPLER LIMITED LOCATION: [facility] DATE: 02/17/2024 INDICATION: pelvic pain, worse on right side COMPARISON: CT abdomen pelvis 04/25/2024; pelvic sonogram 07/19/2022 TECHNIQUE: Transabdominal scans were performed. Endovaginal ultrasound was performed to better visualize the adnexa. Color flow with spectral Doppler and waveform analysis performed. FINDINGS: UTERUS: 7.2 x 5.8 x 4.9 cm. Normal in size and position with no masses. ENDOMETRIUM: 16.1 mm. Normal smooth endometrium. RIGHT OVARY: 3.1 x 2.3 x 2.9 cm. Normal size with arterial and venous duplex flow identified. A mildly heterogeneous area in the medial ovary measuring 2.9 x 1.7 x 1.8 cm demonstrates increased vascular flow, indeterminate LEFT OVARY: 3.1 x 2.5 x 1.8 cm. Normal with arterial and venous duplex flow identified. No significant free fluid. Procedure Note Ramos Pete MD - 02/17/2024 EXAM: US PELVIS COMPLETE W TRANSVAGINAL AND DOPPLER LIMITED LOCATION: [facility] DATE: 02/17/2024 INDICATION: pelvic pain, worse on right side COMPARISON: CT abdomen pelvis 04/25/2024; pelvic sonogram 07/19/2022 TECHNIQUE: Transabdominal scans were performed. Endovaginal ultrasound wasperformed to better visualize the adnexa. Color flow with spectral Dopplerand waveform analysis performed. FINDINGS: UTERUS: 7.2 x 5.8 x 4.9 cm. Normal in size and position with no masses. ENDOMETRIUM: 16.1 mm. Normal smooth endometrium. RIGHT OVARY: 3.1 x 2.3 x 2.9 cm. Normal size with arterial and venousduplex flow identified. A mildly heterogeneous area in the medial ovarymeasuring 2.9 x 1.7 x 1.8 cm demonstrates increased vascular flow,indeterminate LEFT OVARY: 3.1 x 2.5 x 1.8 cm. Normal with arterial and venous duplexflow identified. No significant free fluid. IMPRESSION: 1. Focal area of mildly heterogeneous echotexture in the medial rightovary demonstrates increased color flow, of unclear etiology or clinicalsignificance. Bilateral ovaries are otherwise normal in size withoutevidence of ovarian torsion or mass. Short-term follow-up pelvic sonogram in 2-3 menstrual cycles could beconsidered. us Heath Otero MD [facility] US ORDERABLES Final R esult * (ABNORMAL) UA with Microscopic reflex to Culture (02/16/2024 10:55 PM CDT) Color Urine Light Yellow Colorless, Straw, Light Yellow, Yellow 02/16/2024 11:11 PM CDT LABORATORY Appearance Urine Clear Clear 02/16/20 11:11 PM CDT LABORATORY Glucose Urine Negative Negative mg/dL 02/16/2024 11:11 PM CDT LABORATORY Bilirubin Urine Negative Negative 11:11 PM CDT LABORATORY Ketones Urine 10(A) Negative mg/dL 02/16/2024 11:11 PM CDT LABORATORY Specific [place] Urine 1.018 1.003 - 1.035 02/16/2024 11:11 PM CDT LABORATORY Blood Urine Negative Negative 02/16/2024 11:11 PM CDT LABORATORY pH Urine 5.5 5.0 - 7.0 02/16/2024 11:11 PM CDT LABORATORY Protein Albumin Urine Negative Negative mg/dL 02/16/2024 11:11 PM CDT LABORATORY Urobilinogen Urine Normal Normal, 2.0 mg/dL 02/16/2024 11:11 PM CDT LABORATORY Nitrite Urine Negative Negative 02/16/2024 11:11 PM CDT LABORATORY Leukocyte Esterase Urine Negative Negative 02/16/2024 11:11 PM CDT LABORATORY Mucus Urine Present(A) None Seen /LPF 02/16/2024 11:11 PM CDT LABORATORY RBC Urine 0 <=2 /HPF 02/16/2024 11:11 PM CDT LABORATORY WBC Urine 2 <=5 /HPF 02/16/2024 11:11 PM CDT LABORATORY Squamous Epithelials Urine 2(H) <=1 /HPF 02/16/2024 11:11 PM CDT LABORATORY Urine URINE SPECIMEN OBTAINED BY CLEAN CATCH PROCEDURE / Unknown Non-blood Collection / Unknown 02/16/2024 10:55 PM CDT 02/16/2024 10:58 PM CDT Narrative LABORATORY - 02/16/2024 11:11 PM CDT Urine Culture not indicated us Heath Otero MD LAB - URINE ORDERABLES Fi nal Result LABORATORY [facility] [address] floor, [address] [place] [address], [facility] [phone] * CBC with platelets and differential (02/16/2024 8:15 PM CDT) WBC Count 5.9 4.0 - 11.0 10e3/uL 02/16/2024 9:36 PM CDT LABORATORY RBC Count 4.56 3.80 - 5.20 10e6/uL 02/16/2024 9:36 PM CDT LABORATORY Hemoglobin 13.1 11.7 - 15.7 g/dL 02/16/2024 9:36 PM CDT LABORATORY Hematocrit 39.3 35.0 - 47.0 % 02/16/2024 9:36 PM CDT LABORATORY MCV 86 78 - 100 fL 02/16/2024 9:36 PM CDT LABORATORY MCH 28.7 26.5 - 33.0 pg 02/16/2024 9:36 PM CDT LABORATORY MCHC 33.3 31.5 - 36.5 g/dL 02/16/2024 9:36 PM CDT LABORATORY RDW 12.0 10.0 - 15.0 % 02/16/2024 9:36 PM CDT LABORATORY Platelet Count 222 150 - 450 10e3/uL 02/16/2024 9:36 PM CDT LABORATORY % Neutrophils 56 % 02/16/2024 9:36 PM CDT LABORATORY % Lymphocytes 36 % 02/16/2024 9:36 PM CDT LABORATORY % Monocytes 7 % 02/16/2024 9:36 PM CDT LABORATORY % Eosinophils 1 % 02/16/2024 9:36 PM CDT LABORATORY % Basophils 1 % 02/16/2024 9:36 PM CDT LABORATORY % Immature Granulocytes 0 % 02/16/2024 9:36 PM CDT LABORATORY NRBCs per 100 WBC 0 <1 /100 024 9:36 PM CDT LABORATORY Absolute Neutrophils 3.3 1.6 - 8.3 10e3/uL 02/16/2024 9:36 PM CDT LABORATORY Absolute Lymphocytes 2.1 0.8 - 5.3 10e3/uL 02/16/2024 9:36 PM CDT LABORATORY Absolute Monocytes 0.4 0.0 - 1.3 10e3/uL 02/16/2024 9:36 PM CDT LABORATORY Absolute Eosinophils 0.1 0.0 - 0.7 10e3/uL 02/16/2024 9:36 PM CDT LABORATORY Absolute Basophils 0.0 0.0 - 0.2 10e3/uL 02/16/2024 9:36 PM CDT LABORATORY Absolute Immature Granulocytes 0.0 <=0.4 10e3/uL 02/16/2024 9:36 PM CDT LABORATORY Absolute NRBCs 0.0 10e3/uL 02/16/2024 9:36 PM CDT LABORATORY Blood VENOUS LINE / Unknown Venipuncture / Unknown 02/16/2024 8:15 PM CDT 02/16/2024 8:28 PM CDT us Heath Otero MD LAB - BLOOD ORDERABLES Fi nal Result LABORATORY [facility] [address], [address] [place] [address], [place] [phone] * hCG QUALitative (blood) (02/16/2024 8:15 PM CDT) hCG Serum Qualitative Negative Negative SHARRON 02/16/2024 9:51 PM CDT LABORATORY Comment:This test is for scr eening purposes. Results should be interpreted along with the clinical picture. Confirmation testing is available if warranted by ordering [id number], HCG Quantitative . Blood VENOUS LINE / Unknown Venipuncture / Unknown 02/16/2024 8:15 PM CDT 02/16/2024 8:28 PM CDT Heath Otero MD LAB - BLOOD ORDERABLES Fi nal Result LABORATORY [facility] [address], [address] [place] [address], [facility] [phone] * Comprehensive metabolic panel (02/16/2024 8:15 PM CDT) Pathologist [facility] Sodium 137 135 - 145 mmol/L 02/16/2024 9:58 PM CDT LABORATORY Potassium 4.0 3.4 - 5.3 mmol/L 02/16/2024 9:58 PM CDT LABORATORY Carbon Dioxide (CO2) 26 22 - 29 mmol/L 02/16/2024 9:58 PM CDT LABORATORY Anion Gap 9 7 - 15 mmol/L 02/16/2024 9:58 PM CDT LABORATORY Urea Nitrogen 9.1 6.0 - 20.0 mg/dL 02/16/2024 9:58 PM CDT LABORATORY Creatinine 0.73 0.51 - 0.95 mg/dL 02/16/2024 9:58 PM CDT LABORATORY GFR Estimate >90 >60 mL/min/1.7 3m2 02/16/2024 9:58 PM CDT LABORATORY Comment:eGFR calculated usin 2020 CKD-EPI equation. Calcium 9.5 8.8 - 10.4 mg/dL 02/16/2024 9:58 PM CDT LABORATORY Comment:Reference intervals for this test were updated on 12/06/2023 to reflect our healthy population more accurately. There may be differences in the flagging of prior results with similar values performed with this method. Those prior results can be interpreted in the context of the updated reference intervals. Chloride 102 98 - 107 mmol/L 02/16/2024 9:58 PM CDT LABORATORY Glucose 85 70 - 99 mg/dL 02/16/2024 9:58 PM CDT LABORATORY Alkaline Phosphatase 48 40 - 150 U/L 02/16/2024 9:58 PM CDT LABORATORY AST 15 0 - 45 U/L 02/16/2024 9:58 PM CDT LABORATORY ALT 12 0 - 50 U/L 02/16/2024 9:58 PM CDT LABORATORY Protein Total 7.2 6.4 - 8.3 g/dL 02/16/2024 9:58 PM CDT LABORATORY Albumin 4.2 3.5 - 5.2 g/dL 02/16/2024 9:58 PM CDT LABORATORY Bilirubin Total 0.2 <=1.2 mg/dL 02/16/2024 9:58 PM CDT LABORATORY Blood VENOUS LINE / Unknown Venipuncture / Unknown 02/16/2024 8:15 PM CDT 02/16/2024 8:28 PM CDT Heath Otero MD LAB - BLOOD ORDERABLES Fi nal Result [facility] [address], [address] [place] [address], [facility] [phone] * Extra Purple Top Tube (02/16/2024 8:15 PM CDT) Hold Specimen X 02/16/2024 8:32 PM CDT LABORATORY Blood VENOUS LINE / Unknown Venipuncture / Unknown 02/16/2024 8:15 PM CDT 02/16/2024 8:28 PM CDT Heath Otero MD LAB - BLOOD ORDERABLES Fi nal Result LABORATORY [facility] [address], [address] [place] [address], [facility] [phone] * Extra Green Top ([place] Heparin) Tube (02/16/2024 8:15 PM CDT) Hold Specimen X 02/16/2024 8:31 PM CDT LABORATORY Blood VENOUS LINE / Unknown Venipuncture / Unknown 02/16/2024 8:15 PM CDT 02/16/2024 8:28 PM CDT Heath Otero MD LAB - BLOOD ORDERABLES Fi nal Result LABORATORY [facility] [address], [address] [place] [address], [facility] [phone] * Extra Red Top Tube (02/16/2024 8:15 PM CDT) Hold Specimen X 02/16/2024 8:32 PM CDT LABORATORY Blood VENOUS LINE / Unknown Venipuncture / Unknown 02/16/2024 8:15 PM CDT 02/16/2024 8:28 PM CDT Heath Otero MD LAB - BLOOD ORDERABLES Fi nal Result LABORATORY [facility] [address], [address] [place] [address], [facility] [phone] documented in this encounter Visit Diagnoses Diagnosis Pelvic pain in female Unspecified symptom associated with female genital organs documented in this encounter Additional Health Concerns Assessment Noted Time PHQ-9 Depression Total Score: 5 10/20/19 24 9:22 AM CDT documented as of this encounter Care Teams Papeterie Table Assembler Relationship Specialty [place] [address] [place] [address] PCP - General Family Practice 11/27/18 Jackelyn Carrera MD [address] [place] [address] sheriffs officer 10/21/23 Litzy Vergara PA-C [address] [place] [address] Physician Director Of Product Design Family Medicine 10/21/23 Jackelyn Carrera MD [address] [place] [address] Assigned OBGYN Provider 11/13/23 Vi La PA-C [address] [place] [phone] Assigned PCP 01/13/24 documented as of this encounter
--- OUTSIDE RECORDS SUMMARY | 2024-04-04 11:22 | XMS_ITS | Encounter Summary ---
Author Organization [facility] Address [address] [place] [address] Care Team Providers Care Brazer Crawler Torch Name Role Phone Leslie Silvestre MD Primary Care Provider Leslie Silvestre MD Unavailable Jackelyn Carrera MD Unavailable [phone] Litzy Vergara PA-C Unavailable Jackelyn Carrera MD Unavailable [phone] Vi La PA-C Unavailable [phone] Encounter Details Date Type Department Care Team (Late st Contact Info) Description 11/08/2023 [facility] Medical Advice [facility] [address] [facility] [address] [place] [address] Jackelyn Carrera MD [address] [place] [address] Social History Tobacco Use Types Packs/Day Years [...] attend chur or roman catholic services? Never 08/03/2023 Do you belong to [...] Answer Date Recorded PHQ-2 Score 0 10/20/2023 [facility] Questionnaire [...] exercise at this level? 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 Not on file Not on file documented as of this encounter Plan of Treatment Not on file documented as of this encounter Visit Diagnoses Not on filedocumented in this encounter Additional Health Concerns Assessment Noted Time PHQ-9 Depression Total Score: 5 10/20/19 24 9:22 AM CDT documented as of this encounter Care Teams Brazer Crawler Torch Relationship Specialty Start [place] [address] [place] [address] PCP - General Family Practice 11/27/18 [place] [address] [place] [address] Assigned PCP 05/11/20 01/12/24 Jackelyn Carrera MD [address] [place] [address] director of partnerships 10/21/23 Litzy Vergara PA-C [address] [place] [address] Physician Ticket Attendant Family Medicine 10/21/23 Jackelyn Carrera MD [address] [place] [address] Assigned OBGYN Provider 11/13/23 Vi La PA-C [address] [place] [phone] Assigned PCP 01/13/24 documented as of this encounter
--- OUTSIDE RECORDS SUMMARY | 2024-04-04 11:22 | XMS_ITS | Clinical Summary ---
Author Organization [facility] Address [address] [place] [address] Care Team Providers Care Vehicle Monitor Technician Name Role Phone Leslie Silvestre MD Primary Care Provider Jackelyn Carrera MD Unavailable [phone] Litzy Vergara PA-C Unavailable Jackelyn Carrera MD Unavailable [phone] Vi La PA-C Unavailable [phone] Allergies Active Allergy Reactions Criticality Noted Date Comments No Known Drug Allergy 12/10/2002 Medications norethindrone-eth inyl estradiol (MICROGESTIN 1.530) 1.5-30 MG-MCG tabletIndications :Encounter for other contraceptive management Take 1 tablet by mouth daily 84 tablet 3 4 Active Additional Information Patient not taking.Reported on 12/16/2023 doxycycline hyclate (VIBRAMYCIN) 100 MG capsuleIndication s:Routine screening for STI (sexually transmitted infection),Exposu re to chlamydia Take 1 capsule (100 mg) by mouth 2 times daily 14 capsule 4 Active Active Problems Problem Noted Date Diagnosed Date Anxiety 01/10/2023 Moderate recurrent major depression 01/10/2023 Cyst of right ovary 05/14/2020 Atypical squamous cells of u ndetermined significance (ASCUS) on Papanicolaou smear of cervix 06/28/2019 Overview (03/22/2022): 06/28/19 ASCUS, 19 yr old. Plan 1 [...] Encounters Date Type Department Care Team Description 02/16/2024 7:58 PM CDT - 02/17/2024 1:29 AM CDT Emergency [facility] Dept [address] [place] [address] Heath Otero MD Pelvic pain in female Discharge Disposition: Home or Self Care 02/16/2024 Travel from Last 3 Months Immunizations Name [...] often do you attend chur ch or pentecostalism services? Never 08/03/2023 Do you belong to [...] Answer Date Recorded PHQ-2 Score 0 10/20/2023 [facility] [...] exercise at this level? 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 Not on file Not on file Last Filed Vital Signs [...] 01/31/2023, Additional history exists PAP 03/17/2025 03/17/2022, 12/0 01/2020, 06/28/2019 [employer]ANCE [employer]ANNING 07/05/2027 07/05/2022 DTAP/TDAP/TD IMMUNIZATION (8 - Td or Tdap) 10/25/2028 10/25/2018, 10/20/2010, 07/29/2003, Additional history exists RSV VACCINE (1 - 1-dose 75+ series) 2073 HEPATITIS B IMMUNIZATION Completed 999, 1998, 1998 [...] TO CULTURE STAT 02/16/2024 10:55 PM CDT CBC WITH PLATELETS & DIFFERENTIAL STAT 02/16/2024 8:15 PM CDT CBC WITH PLATELETS AND DIFFERENTIAL STAT 02/16/2024 8:15 PM CDT HCG QUALITATIVE STAT 02/16/2024 8:15 PM CDT COMPREHENSIVE METABOLIC PANEL STAT 02/16/2024 8:15 PM CDT EXTRA PURPLE TOP TUBE STAT 02/16/2024 8:15 PM CDT EXTRA GREEN TOP (LITHIUM HEPARIN) TUBE STAT 02/16/2024 8:15 PM CDT EXTRA RED TOP TUBE STAT 02/16/2024 8: 15 PM CDT EXTRA TUBE STAT 02/16/2024 8:15 PM CDT CHLAMYDIA TRACHOMATIS/NEISSERIA GONORRHOEAE BY PCR Routine 12/16/2023 12:25 PM CDT Routine screening for STI (sexually transmitted infection) GYNECOLOGIC CYTOLOGY Routine 03/17/2022 8:26 AM CDT Cervical cancer screening HIV ANTIGEN ANTIBODY COMBO Routine 10/29/2020 5:03 PM CDT Screen for STD (sexually transmitted disease) HEPATITIS C SCREEN REFLEX TO HCV RNA QUANT AND GENOTYPE Routine 04/30/2020 4:18 PM AEROSPACE PROJECT MANAGER Need for hepatitis C screening test from Last 3 Months or Most Recently Relevant to Health Maintenance Results * US Pelvis Cmplt w Transvag [...] COMPLETE W TRANSVAGINAL AND DOPPLER LIMITED LOCATION: [facility] DATE: 02/17/2024 INDICATION: pelvic pain, worse [...] COMPLETE W TRANSVAGINAL AND DOPPLER LIMITED LOCATION: [facility] DATE: 02/17/2024 INDICATION: pelvic pain, worse [...] sonogram in 2-3 menstrual cycles could beconsidered. Heath Otero MD [facility] ORDERABLES Final R esult * (ABNORMAL) UA with Microscopic reflex to Culture (02/16/2024 10:55 PM CDT) Color Urine Light Yellow Colorless, Straw, Light Yellow, Yellow 02/16/2024 11:11 PM CDT LABORATORY Appearance Urine Clear Clear 02/16/20 24 11:11 PM CDT LABORATORY Glucose Urine Negative Negative mg/dL 02/16/2024 11:11 PM CDT LABORATORY Bilirubin Urine Negative Negative 11:11 PM CDT LABORATORY Ketones Urine 10(A) Negative mg/dL 02/16/2024 11:11 PM CDT LABORATORY Specific [place] Urine 1.018 1.003 - 1.035 02/16/2024 11:11 [...] - URINE ORDERABLES Fi nal Result LABORATORY [facility] [address] 1[address] floor, [address] [place] [address], [facility] [phone] * Extra Purple Top Tube (02/16/2024 8:15 PM CDT) Hold Specimen X 02/16/2024 8:32 PM CDT LABORATORY Blood VENOUS LINE / Unknown Venipuncture / Unknown 02/16/2024 8:15 PM CDT 02/16/2024 8:28 PM CDT Heath Otero MD LAB - BLOOD ORDERABLES Fi nal Result LABORATORY [facility] [address] floor, [address] [place] [address], [place] [phone] * Extra Green Top (Tyhee Heparin) Tube (02/16/2024 8:15 PM CDT) Hold Specimen X 02/16/2024 8:31 PM CDT LABORATORY Blood VENOUS LINE / Unknown Venipuncture / Unknown 02/16/2024 8:15 PM CDT 02/16/2024 8:28 PM CDT Heath Otero MD LAB - BLOOD ORDERABLES Fi nal Result LABORATORY [facility] [address] floor, [address] [place] [address], [place] [phone] * Extra Red Top Tube (02/16/2024 8:15 PM CDT) Hold Specimen X 02/16/2024 8:32 PM CDT LABORATORY Blood VENOUS LINE / Unknown Venipuncture / Unknown 02/16/2024 8:15 PM CDT 02/16/2024 8:28 PM CDT Heath Otero MD LAB - BLOOD ORDERABLES Fi nal Result LABORATORY [facility] [address] floor, [address] [place] [address], [place] [phone] * CBC with platelets and differential (02/16/2024 8:15 PM CDT) [facility] WBC Count 5.9 4.0 - 11.0 10e3/uL [...] - BLOOD ORDERABLES Fi nal Result LABORATORY [facility] [address] floor, [address] [place] [address], [facility] [phone] * hCG QUALitative (blood) (02/16/2024 8:15 PM CDT) Pathologist [facility] hCG Serum Qualitative Negative Negative [place] 02/16/2024 9:51 PM CDT LABORATORY Comment:This test is for scr eening purposes. Results should be interpreted along with the clinical picture. Confirmation testing is available if warranted by ordering [id number], HCG Quantitative . Blood VENOUS LINE / Unknown Venipuncture / Unknown 02/16/2024 8:15 PM CDT 02/16/2024 8:28 PM CDT Heath Otero MD LAB - BLOOD ORDERABLES Fi nal Result LABORATORY [facility] [address] floor, [address] [place] [address], [place] [phone] * Comprehensive metabolic panel (02/16/2024 8:15 PM CDT) Sodium 137 135 - 145 mmol/L 02/16/2024 [...] 6.4 - 8.3 g/dL 02/16/2024 9:58 [facility] Albumin 4.2 3.5 - 5.2 g/dL 02/16/2024 9:58 PM CDT LABORATORY Bilirubin Total 0.2 <=1.2 mg/dL 02/16/2024 9:58 PM CDT LABORATORY Blood VENOUS LINE / Unknown Venipuncture / Unknown 02/16/2024 8:15 PM CDT 02/16/2024 8:28 PM CDT us Heath Otero MD LAB - BLOOD ORDERABLES Fi nal Result LABORATORY [facility] [address], [address] [place] [address], [facility] [phone] * Chlamydia trachomatis/Neisseria gonorrhoeae by PCR - Clinic Collect (12/16/2023 12:25 PM CDT) Chlamydia Trachomatis Negative Negative 12/17/2023 1:02 PM CDT [facility] Comment: Negative for C. trachomatis rRNA by warehouse stocker mediated amplification. A negative result by warehouse stocker mediated amplification does not preclude the presence of infection because results are dependent on proper and adequate collection, absence of inhibitors and sufficient rRNA to be detected. Neisseria gonorrhoeae Negative Negative 12/17/2023 1:02 PM CDT [facility] Comment:Negative for N. gono rrhoeae rRNA by warehouse stocker mediated amplification. A negative result by warehouse stocker mediated amplification does not preclude the presence of C. trachomatis infection because results are dependent on proper and adequate collection, absence of inhibitors and sufficient rRNA to be detected. Urine VOIDED URINE SPECIMEN / Unknown Non-blood Collection / Unknown 12/16/2023 12:25 PM CDT 12/16/2023 12:25 PM CDT us Litzy Mckeon MD LAB - MICRO GENERAL ORDERABL ES Final Result [facility] Inf. Diseases Diag. Lab [address] [facility], [address] [place] [address], [facility] * Pap Screen only - recommended age [...] component of this testing was completed at [facility] 03/19/2022 2:52 PM CDT [facility] LAB[facility] Brushing CERVIX UTERI STRUCTURE / Unknown 03/17/2022 8:26 AM CDT 03/17/2022 8:56 AM CDT us Litzy VARNER - MICHELLE AP Final Resu lt [facility] Specialty Lab [address] [facility], [address] [address], [facility] [phone] * HIV Antigen Antibody Combo (10/29/2020 5:03 PM CDT) HIV Antigen Antibody Combo Nonreactive NR^Nonrea ctive 10/30/2020 3:42 PM CDT [facility] Comment:HIV-1 p24 Ag & HIV-1 /HIV-2 Ab Not Detected Blood 10/29/2020 5:03 PM CDT 10/29/2020 5:04 PM CDT us Leslie Silvestre MD LAB - BLOOD ORDERABLES Final Re sult [address] [address] * Hepatitis C Screen Reflex to HCV RNA Quant and Genotype (04/30/2020 4:18 PM AEROSPACE PROJECT MANAGER) Hepatitis C Antibody Nonreactive NR^Nonre active 05/02/2020 10:31 AM AEROSPACE PROJECT MANAGER [facility] Comment: Assay performance characteristics have not been established for newborns, infants, and children Blood specimen (specimen) 04/30/2020 4:18 PM AEROSPACE PROJECT MANAGER 04/30/2020 4:19 PM AEROSPACE PROJECT MANAGER us Leslie Silvestre MD LAB - BLOOD ORDERABLES Final Re sult [facility] [address] [place] [address] from Last 3 Months or Most Recently Relevant to Health Maintenance Insurance [employer] [facility] BLUE PLUS ADVANTAGE [place] Care Teams Vehicle Monitor Technician Relationship Specialty [place] [address] [place], [place] [phone] PCP - General Family Practice 11/27/18 Jackelyn Carrera MD [address] [place] [address] doggy daycare activities director 10/21/23 Litzy Vergara PA-C [address] [place], [place] [phone] Physician Head Refrigeration Engineer Family Medicine 10/21/23 Jackelyn Carrera MD [address] [place] [address] Assigned OBGYN Provider 11/13/23 Vi La PA-C [address] [place] [address] Assigned PCP 01/13/24
--- OUTSIDE RECORDS SUMMARY | 2024-04-04 11:22 | XMS_ITS | Encounter Summary ---
Author Organization [facility] Address [address] [place] [address]. [place] [address] Care Team Providers Care Classification Case Manager Name Role Phone Leslie Silvestre MD Primary Care Provider Leslie Silvestre MD Unavailable [phone] Jackelyn Carrera MD Unavailable [phone] Litzy Vergara PA-C Unavailable Jackelyn Carrera MD Unavailable [phone] Reason for Visit * Reason Onset Date Comments Blood Draw 12/28/2023 Patient needs la bs before appointment 01/01 Encounter Details Date Type Department Care Team (Late st Contact Info) Description 12/28/2023 Telephone [facility] [address] [place] [address] Jackelyn Carrera MD [address] [place] [address] Blood Draw (Patient needs labs before appointment [...] Date Recorded PHQ-2 Score 0 10/20/2023 [facility] Occupat ional [...] exercise at this level? 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 Patient has appointment for follow-up on 01/01. AB ordered labs for patient on 10/24 when she had her visit. Patient still has not had labs completed, and AB would like labs drawn before patient comes in on Tuesday. Patient can go to any [facility] lab today or tomorrow and have them drawn. Jamilah Bagley CMA documented in this encounter Plan of Treatment Not on file documented as of this encounter Visit Diagnoses Not on filedocumented in this encounter Additional Health Concerns Assessment Noted Time PHQ-9 Depression Total Score: 5 10/20/19 24 9:22 AM CDT documented as of this encounter Care Teams Classification Case Manager Relationship Specialty Start [place] [address] [place] [address] PCP - General Family Practice 11/27/18 [place] [address] [place] [address] Assigned PCP 05/11/20 01/12/24 Jackelyn Carrera MD [address] [place] [address] bulb sorter 10/21/23 Litzy Vergara PA-C [address] [place] [address] Physician Field Assembly Supervisor Family Medicine 10/21/23 Jackelyn Carrera MD [address] [place] [address] Assigned OBGYN Provider 11/13/23 documented as of this encounter
--- OUTSIDE RECORDS SUMMARY | 2024-04-04 11:22 | XMS_ITS | Encounter Summary ---
Author Organization [facility] Address [address] [place] [address] Care Team Providers Care Auto Glass Worker Name Role Phone Leslie Silvestre MD Primary Care Provider [phone] Jackelyn Carrera MD Unavailable [phone] Litzy Vergara PA-C Unavailable [phone] Jackelyn Carrera MD Unavailable [phone] Vi La PA-C Unavailable [phone] Encounter Details Date Type Department Care Team (Latest Contact Info) Description 02/16/2024 Travel Social History Tobacco Use Types Packs/Day [...] attend chur ch or christianity services? Never 08/03/2023 Do you belong to [...] Answer Date Recorded PHQ-2 Score 0 10/20/2023 [facility] - Occupational [...] exercise at this level? 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 Not on file Not on file documented as of this encounter Plan of Treatment Not on file documented as of this encounter Visit Diagnoses Not on filedocumented in this encounter Additional Health Concerns Assessment Noted Time PHQ-9 Depression Total Score: 5 10/20/19 24 9:22 AM CDT documented as of this encounter Care Teams Auto Glass Worker Relationship Specialty Start [place] [address] [place] [address] PCP - General Family Practice 11/27/18 Jackelyn Carrera MD [address] [place] [address] MD manufacturing storeperson 10/21/23 Litzy Vergara PA-C [address] [place] [address] Physician Forming Machine Operator Family Medicine 10/21/23 Jackelyn Carrera MD [address] [place] [address] Assigned OBGYN Provider 11/13/23 Vi La PA-C [address] [place] [address] Assigned PCP 01/13/24 documented as of this encounter
--- OUTSIDE RECORDS SUMMARY | 2024-04-04 11:22 | XMS_ITS | Referral Summary ---
Author Organization [facility] Address [address] [place] [address] Care Team Providers Care Layout Man Name Role Phone Leslie Silvestre MD Primary Care Provider Jackelyn Carrera MD Unavailable [phone] Litzy Vergara PA-C Unavailable Jackelyn Carrera MD Unavailable [phone] Vi La PA-C Unavailable [phone] Encounters Date Type Department Care Team Description 02/16/2024 7:58 PM CDT - 02/17/2024 1:29 AM CDT Emergency [facility] Emergency Dept [address] [place] [address] Heath Otero MD Pelvic pain in female Discharge Disposition: Home or Self Care 02/16/2024 Travel from Last 3 Months Allergies Active Allergy Reactions Criticality Noted Date Comments No Known Drug Allergy 12/10/2002 Medications norethindrone-eth inyl estradiol (MICROGESTIN 1.530) 1.5-30 MG-MCG tabletIndications :Encounter for other contraceptive management Take 1 tablet by mouth daily 84 tablet 3 Active Additional Information Patient not taking.Reported on [...] week 08/03/2023 How often do you attend [facility]? Never 08/03/2023 Do you belong to [...] Answer Date Recorded PHQ-2 Score 0 10/20/2023 [facility] Downs of Occupat ional Health - Occupational Stress [...] exercise at this level? 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 us Heath Otero MD [facility] ORDERABLES Final R esult * (ABNORMAL) [...] mg/dL 02/16/2024 11:11 PM CDT LABORATORY Specific [place] Urine 1.018 1.003 - 1.035 02/16/2024 11:11 [...] LAB - URINE ORDERABLES Fi nal Result [facility] [address] 1st floor, [address] [place] [address], [facility] [phone] * Extra Purple Top Tube (02/16/2024 8:15 PM CDT) Hold Specimen X 02/16/2024 8:32 PM CDT LABORATORY Blood VENOUS LINE / Unknown Venipuncture / Unknown 02/16/2024 8:15 PM CDT 02/16/2024 8:28 PM CDT Heath Otero MD LAB - BLOOD ORDERABLES Fi nal Result [facility] [address] 1[address] floor, [address] [place] [address], [facility] [phone] * Extra Green Top ([place] Heparin) Tube (02/16/2024 8:15 PM CDT) Hold Specimen X 02/16/2024 8:31 PM CDT LABORATORY Blood VENOUS LINE / Unknown Venipuncture / Unknown 02/16/2024 8:15 PM CDT 02/16/2024 8:28 PM CDT Heath Otero MD LAB - BLOOD ORDERABLES Fi nal Result LABORATORY [facility] [address] 1[address] floor, [address] [place] [address], [facility] [phone] * Extra Red Top Tube (02/16/2024 8:15 PM CDT) Hold Specimen X 02/16/2024 8:32 PM CDT LABORATORY Blood VENOUS LINE / Unknown Venipuncture / Unknown 02/16/2024 8:15 PM CDT 02/16/2024 8:28 PM CDT Heath Otero MD LAB - BLOOD ORDERABLES Fi nal Result LABORATORY [facility] [address] 1[address] floor, [address] [place] [address], [facility] [phone] * CBC with platelets and differential (02/16/2024 [...] LAB - BLOOD ORDERABLES Fi nal Result Performing Organization Address [facility]/ZIP Co de Phone Number LABORATORY [facility] Lab [address] 1st floor, [address], [place] [address], [facility] [phone] * hCG QUALitative (blood) (02/16/2024 8:15 PM CDT) Pathologist [facility] hCG Serum Qualitative Negative Negative SHARRON 02/16/2024 9:51 PM CDT LABORATORY Comment:This test is for scr eening purposes. Results should be interpreted along with the clinical picture. Confirmation testing is available if warranted by ordering [id number], HCG Quantitative . Blood VENOUS LINE / Unknown Venipuncture / Unknown 02/16/2024 8:15 PM CDT 02/16/2024 8:28 PM CDT Heath Otero MD LAB - BLOOD ORDERABLES Fi nal Result Performing Organization Address [facility]/ZIP Co de Phone Number LABORATORY [facility] [address] 1st floor, [address] [address], [facility] [phone] * Comprehensive metabolic panel (02/16/2024 8:15 PM CDT) Pathologist [facility] Sodium 137 135 - 145 mmol/L 02/16/2024 [...] 02/16/2024 9:58 PM CDT LABORATORY Comment:eGFR calculated us2020 CKD-EPI equation. Calcium 9.5 8.8 - 10.4 [...] - BLOOD ORDERABLES Fi nal Result LABORATORY [facility] [address] 1st floor, [address] [place] [address], [facility] [phone] * Chlamydia trachomatis/Neisseria gonorrhoeae by PCR - Clinic Collect (12/16/2023 12:25 PM CDT) Chlamydia Trachomatis Negative Negative 12/17/2023 1:02 PM CDT [facility] Comment: Negative for C. trachomatis rRNA by retrimmer mediated amplification. A negative result by retrimmer mediated amplification does not preclude the presence of infection because results are dependent on proper and adequate collection, absence of inhibitors and sufficient rRNA to be detected. Neisseria gonorrhoeae Negative Negative 12/17/2023 1:02 PM CDT [facility] Comment:Negative for N. gono rrhoeae rRNA by retrimmer mediated amplification. A negative result by retrimmer mediated amplification does not preclude the presence of C. trachomatis infection because results are dependent on proper and adequate collection, absence of inhibitors and sufficient rRNA to be detected. Urine VOIDED URINE SPECIMEN / Unknown Non-blood Collection / Unknown 12/16/2023 12:25 PM CDT 12/16/2023 12:25 PM CDT us Litzy Mckeon MD LAB - MICRO GENERAL ORDERABL ES Final Result [facility] Inf. Diseases Diag. Lab [address] [facility], [address] [place] [phone] * Pap Screen only - recommended age [...] Clinical Information none 03/19/2022 2:52 PM CDT [facility] Reflex Testing No 03/19/2022 2:52 PM CDT [facility] Previous Abnormal? Yes 03/19/2022 2:52 PM CDT [facility] Previous Abnormal Diagnosis ASCUS 03/19/2022 2:52 PM CDT [facility] Performing Labs The technical component of this testing was completed at [facility] 03/19/2022 2:52 PM CDT [facility] Brushing CERVIX UTERI STRUCTURE / Unknown 03/17/2022 8:26 AM CDT 03/17/2022 8:56 AM CDT us Litzy MARTINEZ AP Final Resu lt SPECIALTY LAB[facility] [address] [facility], [address] [place], [place] [address], [facility] [phone] * HIV Antigen Antibody Combo (10/29/2020 5:03 PM CDT) HIV Antigen Antibody Combo Nonreactive NR^Nonrea ctive 10/30/2020 3:42 PM CDT [facility] Comment:HIV-1 p24 Ag & HIV-1 /HIV-2 Ab Not Detected Blood 10/29/2020 5:03 PM CDT 10/29/2020 5:04 PM CDT us Leslie Silvestre MD LAB - BLOOD ORDERABLES Final Re sult [facility] [address] [place] [address] * Hepatitis C Screen Reflex to HCV RNA Quant and Genotype (04/30/2020 4:18 PM CLINICIAN ONCOLOGY) Hepatitis C Antibody Nonreactive NR^Nonre active 05/02/2020 10:31 AM CLINICIAN ONCOLOGY [facility] Comment: Assay performance characteristics have not been established for newborns, infants, and children Blood specimen (specimen) 04/30/2020 4:18 PM CLINICIAN ONCOLOGY 04/30/2020 4:19 PM CLINICIAN ONCOLOGY us Leslie Silvestre MD LAB - BLOOD ORDERABLES Final Re sult [facility] [address] [place] [address] from Last 3 Months or Most Recently Relevant to Health Maintenance Insurance Optosecurity [place] Optosecurity [place] Care Teams Layout Man Relationship Specialty [place] [address] [place] [address] PCP - General Family Practice 11/27/18 Jackelyn Carrera MD [address] [place] [address] devulcanizer charger 10/21/23 Litzy Vergara PA-C [address] [place] [address] Physician Service Writer Advisor Family Medicine 10/21/23 Jackelyn Carrera MD [address] [place] [address] Assigned OBGYN Provider 11/13/23 Vi La PA-C [address] [place] [address] Assigned PCP 01/13/24
--- OUTSIDE RECORDS SUMMARY | 2024-04-04 11:22 | XMS_ITS | Clinical Summary ---
Author Organization [email or web address] Address [place], [place] [address] Care Team Providers Care Hoisting Machine Operator Name Role Phone Tiffany Frey PA-C Primary Care Provider [phone] Allergies No known active allergies Medications Medication Sig Dispensed Refills Start Date End Date Status norethindrone acet-ethinyl est, 1.5-30 mg-mcg, (LOESTRIN .10/19; JUNEL .10/19) 1.5-30 mg-mcg tab tablet Take 1 Tablet by mouth once daily. 10/20/2023 Active Active Problems Problem Noted Date Diagnosed Date Screening for cardiovascular condition SOB (shortness of breath) 06/23/2023 Immunizations Name Administration Dates Next Due DTaP 07/29/2003, 0,02/04/1999,09/22,1998 HIB HbOC (HibTITER) 1998 HIB PRP-T (ActHIB,Hiberix) 02/04/1999,1998 ,1998 HIB-HepB (Comvax) 02/04/1999 HPV 9 (Gardasil 9) 12/18/2013,03/26/2013, 013 Hepatitis B (Peds) 1998 Human Papilloma Virus Vaccine 12/18/2013, 013,01/02/2013 Inactivated Polio Vaccine 07/29/2003,03/2000,1998,05/27 Influenza, IIV3 (Age 6-35 mos) 02/09/2010,2008 Influenza, IIV3 (Age >=3 years) 01/28/20 12,03/06/2008,03/30/2007,07/05 Influenza, IIV4 05/31/2019, 8,06/02/2017,04/01,03/25/2015,05/02/2014,03/26/2013 Influenza, IIV4 (=>6mos) MDV 02/20/2018 MENINGOCOCCAL VACCINE 2 VIAL 2MO-55YO (MENVEO) 12/18/2013 MMR 07/29/2003,06/17/1999 Meningococcal Vaccine (Menactra) 12/18/2013,12/2009 Tdap 10/25/2018,10/20/2010 Varicella Vaccine 03/06/2008,06/17/1999 Social History Tobacco Use Types Packs/Day Years Used Date Smoking Tobacco: Never Smokeless Tobacco: Never Tobacco Cessation:Counseling Given: Not Answered Alcohol Use Standard Drinks/Week Comments Not Currently 0 (1 standard drink = 0.6 oz pur e alcohol) Sex and Gender Information Value Date Recorded Sex Assigned at Not on file Gender Identity Not on file Sexual Orientation Not on file Obstetrics History Para Term AB IAB SAB Ectopic Multiple Livin g Live Births 1 1 1 1 1 Date Outcome GA Total Labor Labor/2nd/3rd Weight Sex Type Anes PTL Carlita A1 A5 Name Clin 2018 Term 40w 3d 5h 04m 4h 05m/0h 54m/0h 05m 3.1 kg (6 lb 13.4 oz) M Vag-S pont Epidur al N Livin g 9 10 Jose osborne MD Complications:None Delivery Location:[facility] ( ) Last Filed Vital Signs Vital Sign Reading Time Taken Comments Blood Pressure 130/87 06/23/2023 12:58 PM NEON PUMPER Pulse 110 06/23/2023 12:58 PM NEON PUMPER Temperature 36.8 ??C (98.3 ??F) 07/01/2012 7:57 PM CS T Respiratory Rate 18 07/01/2012 7:57 PM NEON PUMPER Oxygen Saturation 98% 06/23/2023 12:58 PM NEON PUMPER Inhaled Oxygen Concentration - - Weight 52.9 kg (116 lb 9.6 oz) 06/23/2023 12:58 PM NEON PUMPER Height 160 cm (5' 3) 06/23/2023 12:58 PM NEON PUMPER Body Mass Index 20.65 06/23/2023 12:58 PM NEON PUMPER Plan of Treatment Health Maintenance Due Date Last Done Comments Depression screening for age 12+ 2010 HIV for age 15-65 2013 Hepatitis C screening for age 18-79 02/27/2016 Pap test for age 21-65 2019 COVID-19 vaccine series ( season) 2024 Influenza for age 9-49 01/22/2024 0, 04/17/2018, 02/20/2018, Additional history exists BMI (ht and wt on same day) for age 18+ 06/23/2024 06/23/2023 Tetanus booster 10/25/2028 10/25/2018, 10/20/2010 HPV series for age 9-26 Completed 12/19/19 14, 12/18/2013, 03/26/2013, Additional history exists Tdap Completed 10/25/2018, 10/20/2010 Pneumococcal series for age 6-64 Aged Out No longer eligible based on patient's age to complete this topic Care Teams Hoisting Machine Operator Relationship Specialty Start Date End Date Tiffany Frey PA-C [address] [place] [address] PCP - General Emergency Medicine 06/23/23
--- OUTSIDE RECORDS SUMMARY | 2024-04-04 11:23 | XMS_ITS | Encounter Summary ---
Author Organization [facility] Address [address] [place] [address] Care Team Providers Care Returned Item Clerk Name Role Phone Patricia Tobin MD Unavailable + [facility] Primary Care Provider Patricia Tobin MD Unavailable + Roro Garber CHAR CONVEYOR TENDER Unavailable No Ref-Primary, Physician Primary Care Provider Leslie Silvestre MD Unavailable [phone] Leslie Silvestre MD Primary Care Provider Patricia Tobin MD Unavailable + Karen Miller Unavailable Unavailable Leslie Silvestre MD Unavailable Jackelyn Carrera MD Unavailable [phone] Litzy Vergara PA-C Unavailable Jackelyn Carrera MD Unavailable [phone] Vi La PA-C Unavailable [phone] Encounter Details Date Type Department Care Team (Late st Contact Info) Description 07/16/2018 MyC Medical Advice [facility] Women's [address] [place] [address] Tarah Fields CNM NO INFO AVAILABLE 05/13/2022 Social History Tobacco Use Types Packs/Day Years Used Date Smoking Tobacco: Never Smokeless Tobacco: Never Alcohol Use Standard Drinks/Week Comments No 0 (1 standard drink = 0.6 oz pur e alcohol) PHQ-2 Answer Date Recorded PHQ-2 Score 4 07/18/2018 Comments Yes Sex and Gender Information Value Date Recorded Sex Assigned at Female 06/28/2018 11:22 AM HOT MOLDER Legal Sex Female 3:40 AM HOT MOLDER Gender Identity Female 06/28/2018 11:22 AM HOT MOLDER Sexual Orientation Not on file 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 Sridevi Wayne R.N. [facility] MOLDER documented in this encounter Plan of Treatment Not on file documented as of this encounter Visit Diagnoses Not on filedocumented in this encounter Additional Health Concerns Assessment Noted Time PHQ-9 Depression Total Score: 16 024 10:01 AM HOT MOLDER documented as of this encounter Care Teams Returned Item Clerk Relationship Specialty Start Date End Date Patricia Tobin MD PRIMARY ENT [address] [facility] [address] [place], [place] [address] PCP - Assigned PCP 05/14/18 07/25/18 [facility] [address] [address] PCP - General Internal Medicine 07/03/18 09/28/18 No Ref-Primary, Physician PCP - General 09/29/18 11/26/18 [place] [address] [facility], [place] [id number] PCP - General Family Practice 11/27/18 Patricia Tobin MD PRIMARY ENT [address] [facility] [address] [place] [address] Assigned PCP 06/11/18 10/14/18 Roro Garber, [facility] Clinic Bottle House Cleaners Supervisor Primary Care - CC 07/26/18 [place] [address] [facility], [place] [id number] Assigned PCP 10/15/18 12/08/19 Patricia Tobin MD PRIMARY ENT [address] [facility] [address] [place] [address] Assigned PCP 12/09/19 05/10/20 Karen Miller Personal Advocate & Liaison (PAL) Family Medicine 04/30/20 08/26/20 [place] [address] [place] [address] Assigned PCP 05/11/20 01/12/24 Jackelyn Carrera MD [address] [place] [address] civil design technician 10/21/23 Litzy Vergara, PARupertoC [address] [facility], [place] [id number] Physician Computer Numerical Control Operator Family Medicine 10/21/23 Jackelyn Carrera MD [address] [place] [address] Assigned OBGYN Provider 11/13/23 Vi La PA-C [address] [place] [address] Assigned PCP 01/13/24 documented as of this encounter
--- OUTSIDE RECORDS SUMMARY | 2024-04-04 11:23 | XMS_ITS | Encounter Summary ---
Author Organization [facility] Address [address] [place] [address]. [place] [address] Care Team Providers Care Network Security Consultant Name Role Phone Leslie Silvestre MD Unavailable [phone] Leslie Silvestre MD Primary Care Provider Patricia Tobin MD Unavailable + Karen Miller Unavailable Unavailable OLeslie Espinosa MD Unavailable [phone] Jackelyn Carrera MD Unavailable [phone] Litzy Vergara PA-C Unavailable Jackelyn Carrera MD Unavailable Vi La PA-C Unavailable [phone] Reason for Visit * Reason Onset Date Comments Patient Request 12/11/2018 Encounter Details Date Type Department Care Team (Late st Contact Info) Description 12/11/2018 [facility] [place] [facility] [id number] [place] [phone] [place] [address] [place] [address] Patient Request Social History Tobacco Use Types Packs/Day Years Used Date Smoking Tobacco: Never Smokeless Tobacco: Never Alcohol Use Standard Drinks/Week Comments No 0 (1 standard drink = 0.6 oz pur e alcohol) PHQ-2 Answer Date Recorded PHQ-2 Score 0 11/20/2018 [place] Depression Scale Answer Date Recorded [place] Depression Score 0 12/07/2018 Last EPDS Self Harm Result Not on file 12/07 Comments No Sex and Gender Information Value Date Recorded Sex Assigned at Female 06/28/2018 11:22 AM SOCIAL SERVICE AGENCY DIRECTOR Legal Sex Female 3:40 AM SOCIAL SERVICE AGENCY DIRECTOR Gender Identity Female 06/28/2018 11:22 AM SOCIAL SERVICE AGENCY DIRECTOR Sexual Orientation Not on file 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 Not on file Not on file documented as of this encounter Miscellaneous Notes * Telephone Encounter - Melanie Guevara RN - 12/12/2018 7:09 AM CDT Please see my chart message and response Thank you Melanie Guevara Registered Nurse [facility] documented in this encounter Plan of Treatment Not on file documented as of this encounter Visit Diagnoses Not on filedocumented in this encounter Additional Health Concerns Assessment Noted Time PHQ-9 Depression Total Score: 16 024 10:01 AM SOCIAL SERVICE AGENCY DIRECTOR documented as of this encounter Care Teams Network Security Consultant Relationship Specialty Start [place] [address] [place] [address] PCP - General Family Practice 11/27/18 [place] [address] [place] [address] Assigned PCP 10/15/18 12/08/19 Patricia Tobin MD PRIMARY ENT [address] [facility] [address] [place] [address] Assigned PCP 12/09/19 05/10/20 Karen Miller Personal Advocate & Liaison (PAL) Family Medicine 04/30/20 08/26/20 [place] [address] [place] [address] Assigned PCP 05/11/20 01/12/24 Jackelyn Carrera MD [address] [place] [address] boiler erector 10/21/23 Litzy Vergara PA-C [address] [place] [address] Physician Costuming Supervisor Family Medicine 10/21/23 Jackelyn Carrera MD [address] [place] [address] Assigned OBGYN Provider 11/13/23 Vi La PA-C [address] [place] [address] Assigned PCP 01/13/24 documented as of this encounter
--- OUTSIDE RECORDS SUMMARY | 2024-04-04 11:23 | XMS_ITS | Encounter Summary ---
Author Organization [facility] Address [address] [place] [address] Care Team Providers Care Immunology Specialist Name Role Phone [facility] Primary Care Provide r No Ref-Primary, Physician Primary Care Provider Natasha Horta APRN FACILITY MAINTENANCE HELPER Unavailable + Patricia Tobin MD Unavailable + [facility] Primary Care Provider Patricia Tobin MD Unavailable + Roro Garber MAGNETIC RESONANCE IMAGING COORDINATOR Unavailable No Ref-Primary, Physician Primary Care Provider Leslie Silvestre MD Unavailable [phone] Leslie Silvestre MD Primary Care Provider Patricia Tobin MD Unavailable + Karen Miller Unavailable Unavailable Leslie Silvestre MD Unavailable [phone] Jackelyn Carrera MD Unavailable [phone] Litzy Vergara PA-C Unavailable Jackelyn Carrera MD Unavailable [phone] Abhinav Vimiguel Malik PA-C Unavailable [phone] Reason for Visit * Reason Onset Date Comments Medication Question 06/02/2017 Lexapro, Santiago rax Encounter Details Date Type Department Care Team (Late st Contact Info) Description 06/02/2017 MyC Medical Advice [facility], [address] [place] [address] Gonzalez Catalan PA-C [address] [place] [id number] Medication Question (Lexapro, Atarax) Social History Tobacco Use Types Packs/Day Years Used Date Smoking Tobacco: Never Smokeless Tobacco: Never Alcohol Use Standard Drinks/Week Comments No 0 (1 standard drink = 0.6 oz pur e alcohol) Comments No Sex and Gender Information Value Date Recorded Sex Assigned at Female 06/28/2018 11:22 AM EARLY CHILDHOOD EDUCATION INSTRUCTOR Legal Sex Female 3:40 AM EARLY CHILDHOOD EDUCATION INSTRUCTOR Gender Identity Female 06/28/2018 11:22 AM EARLY CHILDHOOD EDUCATION INSTRUCTOR Sexual Orientation Not on file documented as of this encounter Plan of Treatment Not on file documented as of this encounter Visit Diagnoses Not on filedocumented in this encounter Care Teams Immunology Specialist Relationship Specialty Start Date End Date [facility] [id number] [place] [id number] PCP - General 05/28/17 03/29/18 No Ref-Primary, Physician PCP - General 03/30/18 07/02/18 Natasha Horta APRN FACILITY MAINTENANCE HELPER [address] [address] [place] [id number] PCP - Assigned PCP 02/12/18 05/13/18 Patricia Tobin MD PRIMARY ENT [address] [place] [address] PCP - Assigned PCP 05/14/18 07/25/[address] [id number] PCP - General Internal Medicine 07/03/18 09/28/18 No Ref-Primary, Physician PCP - General 09/29/18 11/26/18 [place] [address] [facility], [place] [phone] PCP - General Family Practice 11/27/18 Patricia Tobin MD PRIMARY ENT [address] [place], [place] [id number] Assigned PCP 06/11/18 10/14/18 Roro Garber, [facility] Clinic Manufacturing Engineer Machining Primary Care - CC 07/26/18 [place] [address] [facility] [address] Assigned PCP 10/15/18 12/08/19 Patricia Tobin MD PRIMARY ENT [address] [facility] [address] [place] [address] Assigned PCP 12/09/19 05/10/20 Karen Miller Personal Advocate & Liaison (PAL) Family Medicine 04/30/20 08/26/20 [place] [address] [facility], [place] [phone] Assigned PCP 05/11/20 01/12/24 Jackelyn Carrera MD [address] [place] [address] commercial horticulture instructor 10/21/23 Litzy Vergara PA-C [address] [place] [address] Physician Police Specialist Family Medicine 10/21/23 Jackelyn Carrera MD [address] [place] [address] Assigned OBGYN Provider 11/13/23 Vi La PA-C [address] [place] [address] Assigned PCP 01/13/24 documented as of this encounter
--- OUTSIDE RECORDS SUMMARY | 2024-04-04 11:23 | XMS_ITS | Encounter Summary ---
Author Organization [facility] Address [address] [place] [address] Care Team Providers Care Tool And Die Assembler Name Role Phone Patricia Tobin MD Unavailable + [facility] Primary Care Provider Patricia Tobin MD Unavailable + Roro Garber FOREST MANAGER Unavailable No Ref-Primary, Physician Primary Care Provider Leslie Silvestre MD Unavailable [phone] Leslie Silvestre MD Primary Care Provider Patricia Tobin MD Unavailable + Karen Miller Unavailable Unavailable Leslie Silvestre MD Unavailable [phone] Jackelyn Carrera MD Unavailable [phone] Litzy Vergara PA-C Unavailable Jackelyn Carrera MD Unavailable [phone] Vi La PA-C Unavailable [phone] Reason for Visit * Reason Onset Date Comments Care 07/15/2018 DONAHUE Encounter Details Date Type Department Care Team (Late st Contact Info) Description 07/15/[address] 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 Not on file Not on file documented as of this encounter Plan of Treatment Not on file documented as of this encounter Visit Diagnoses Not on filedocumented in this encounter Additional Health Concerns Assessment Noted Time PHQ-9 Depression Total Score: 16 024 10:01 AM ACCOUNT RESOLUTION SPECIALIST documented as of this encounter Care Teams Tool And Die Assembler Relationship Specialty Start Date End Date Patricia Tobin MD PRIMARY ENT [address] [facility] [address] [place], [place] [address] PCP - Assigned PCP 05/14/18 07/25/[address] [address] PCP - General Internal Medicine 07/03/18 09/28/18 No Ref-Primary, Physician PCP - General 09/29/18 11/26/18 [place] [address] [place] [address] PCP - General Family Practice 11/27/18 Patricia Tobin MD PRIMARY ENT [address] [facility] [address] [place] [address] Assigned PCP 06/11/18 10/14/18 Roro Garber, [facility] Clinic Casting Agent Primary Care - CC 07/26/18 [place] [address] [place], [place] [address] Assigned PCP 10/15/18 12/08/19 Patricia Tobin MD [facility] ENT [address] [facility] [address] [place] [address] Assigned PCP 12/09/19 05/10/20 Karen Miller Personal Advocate & Liaison (PAL) Family Medicine 04/30/20 08/26/20 [place] [address] [place] [address] Assigned PCP 05/11/20 01/12/24 Jackelyn Carrera MD [address] [place] [address] information services tech 10/21/23 Litzy Vergara, PARupertoC [address] [place], [place] [id number] Physician Custom Bike Builder Family Medicine 10/21/23 Jackelyn Carrera MD [address] [place] [address] Assigned OBGYN Provider 11/13/23 Vi La PA-C [address] [place] [phone] Assigned PCP 01/13/24 documented as of this encounter
--- OUTSIDE RECORDS SUMMARY | 2024-04-04 11:23 | XMS_ITS | Encounter Summary ---
Author Organization [facility] Address [address] [place] [address] Care Team Providers Care Diplomatic Officer Name Role Phone [facility] Primary Care Provider Patricia Tobin MD Unavailable + No Ref-Primary, Physician Primary Care Provider Leslie Silvestre MD Unavailable [phone] Leslie Silvestre MD Primary Care Provider Patricia Tobin MD Unavailable + Karen Miller Unavailable Unavailable Leslie Silvestre MD Unavailable [phone] Jackelyn Carrera MD Unavailable [phone] Litzy Vergara PA-C Unavailable Jackelyn Carrera MD Unavailable [phone] Vi La PA-C Unavailable [phone] Reason for Visit * Reason Onset Date Comments Douglashart Communication 09/16/2018 mel bui Encounter Details Date Type Department Care Team (Latest Contact Info) Description 09/16/2018 [facility] [address] [address] [place] [address] [place] [address] MyChart Communication (arm discomfort) Social History Tobacco Use Types Packs/Day Years Used Date Smoking Tobacco: Never Smokeless Tobacco: Never Alcohol Use Standard Drinks/Week Comments No 0 (1 standard drink = 0.6 oz pur e alcohol) PHQ-2 Answer Date Recorded PHQ-2 Score 4 09/18/2018 Comments Yes Sex and Gender Information Value Date Recorded Sex Assigned at Female 06/28/2018 11:22 AM MATERIAL RECLAIMER Legal Sex Female 3:40 AM MATERIAL RECLAIMER Gender Identity Female 06/28/2018 11:22 AM MATERIAL RECLAIMER Sexual Orientation Not on file 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 Not on file Not on file documented as of this encounter Plan of Treatment Not on file documented as of this encounter Visit Diagnoses Not on filedocumented in this encounter Additional Health Concerns Assessment Noted Time PHQ-9 Depression Total Score: 16 024 10:01 AM MATERIAL RECLAIMER documented as of this encounter Care Teams Diplomatic Officer Relationship Specialty Start Date End Date Clinic - [address] [address] PCP - General Internal Medicine 07/03/18 09/28/18 No Ref-Primary, Physician PCP - General 09/29/18 11/26/18 [place] [address] [place] [address] PCP - General Family Practice 11/27/18 Patricia Tobin MD PRIMARY ENT [address] [place] [address] Assigned PCP 06/11/18 10/14/18 [place] [address] [place] [address] Assigned PCP 10/15/18 12/08/19 Patricia Tobin MD PRIMARY ENT [address] [place] [address] Assigned PCP 12/09/19 05/10/20 Karen Miller Personal Advocate & Liaison (PAL) Family Medicine 04/30/20 08/26/20 [place] [address] [place], [place] [address] Assigned PCP 05/11/20 01/12/24 Jackelyn Carrera MD [address] [place] [address] level glass forming machine operator 10/21/23 Litzy Vergara PA-C [address] [place], [place] [phone] Physician Cabbage Salter Family Medicine 10/21/23 Jackelyn Carrera MD [address] [place] [address] Assigned OBGYN Provider 11/13/23 Vi La PA-C [address] [place] [address] Assigned PCP 01/13/24 documented as of this encounter
--- OUTSIDE RECORDS SUMMARY | 2024-04-04 11:23 | XMS_ITS | Encounter Summary ---
Author Organization [facility] Address [address] [place] [address] Care Team Providers Care Floor Clerk Name Role Phone [facility] Primary Care Provider Patricia Tobin MD Unavailable + No Ref-Primary, Physician Primary Care Provider Leslie Silvestre MD Unavailable Leslie Silvestre MD Primary Care Provider Patricia Tobin MD Unavailable + Karen Miller Unavailable Unavailable Leslie Silvestre MD Unavailable [phone] Jackelyn Carrera MD Unavailable [phone] Litzy Vergara PA-C Unavailable Jackelyn Carrera MD Unavailable [phone] Vi La PA-C Unavailable [phone] Reason for Visit * Reason Onset Date Comments MyChart Communication 09/18/2018 left arm i ssue Encounter Details Date Type Department Care Team (Latest Contact Info) Description 09/18/2018 [facility] [address] [address] [place] [address] [place] [address] MyChart Communication (left arm issue) Social History Tobacco Use Types Packs/Day Years Used Date Smoking Tobacco: Never Smokeless Tobacco: Never Alcohol Use Standard Drinks/Week Comments No 0 (1 standard drink = 0.6 oz pur e alcohol) PHQ-2 Answer Date Recorded PHQ-2 Score 4 09/18/2018 Comments Yes Sex and Gender Information Value Date Recorded Sex Assigned at Female 06/28/2018 11:22 AM STUBBER Legal Sex Female 3:40 AM STUBBER Gender Identity Female 06/28/2018 11:22 AM STUBBER Sexual Orientation Not on file 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 Not on file Not on file documented as of this encounter Plan of Treatment Not on file documented as of this encounter Visit Diagnoses Not on filedocumented in this encounter Additional Health Concerns Assessment Noted Time PHQ-9 Depression Total Score: 16 024 10:01 AM STUBBER documented as of this encounter Care Teams Floor Clerk Relationship Specialty Start Date End Date [facility] - [address] [address] PCP - General Internal Medicine 07/03/18 09/28/18 No Ref-Primary, Physician PCP - General 09/29/18 11/26/18 [place] [address] [place] [address] PCP - General Family Practice 11/27/18 Patricia Tobin MD PRIMARY ENT [address] [place] [address] Assigned PCP 06/11/18 10/14/18 [place] [address] [place], [place] [address] Assigned PCP 10/15/18 12/08/19 Patricia Tobin MD PRIMARY ENT [address] [place] [address] Assigned PCP 12/09/19 05/10/20 Karen Miller Personal Advocate & Liaison (PAL) Family Medicine 04/30/20 08/26/20 [place] [address] [place], [place] [address] Assigned PCP 05/11/20 01/12/24 Jackelyn Carrera MD [address] [place] [address] director of exhibit development 10/21/23 Litzy Vergara PA-C [address] [place], [place] [phone] Physician Aircraft Lay Out Worker Family Medicine 10/21/23 Jackelyn Carrera MD [address] [place] [address] Assigned OBGYN Provider 11/13/23 Vi La PA-C [address] [place] [address] Assigned PCP 01/13/24 documented as of this encounter
--- OUTSIDE RECORDS SUMMARY | 2024-04-04 11:23 | XMS_ITS | Encounter Summary ---
Author Organization [facility] Address [address] [place] [address]. [place] [address] Care Team Providers Care Medical Corps Officer Name Role Phone Leslie Silvestre MD Primary Care Provider [phone] Karen Miller Unavailable Unavailable Leslie Silvestre MD Unavailable [phone] Jackelyn Carrera MD Unavailable Litzy Vergara PA-C Unavailable Jackelyn Carrera MD Unavailable Vi La PA-C Unavailable [phone] Reason for Visit * Reason Onset Date Comments Patient Request 05/14/2020 Encounter Details Date Type Department Care Team (Late st Contact Info) Description 05/14/2020 MyC Medical Advice [facility] [id number] [place] [phone] [place] [address] [place] [address] Patient Request Social History Tobacco [...] and Family Once a week 06/28/2019 Attends Religion Services Never 06/28 Active Member of Clubs [...] Answer Date Recorded PHQ-2 Score 2 04/30/2020 [facility] - [...] things needed for daily living? No 06/28/2019 [place] Depression Scale Answer Date Recorded [place] Depression Score 0 12/07/2018 Last EPDS Self Harm Result Not on file 12/07 Education Answer Date Recorded What is the highest level of school you have completed or the highest degree you have received? 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 No / Unsure 05/13/2020 11:14 AM SYSTEM DEVELOPMENT ENGINEER documented as of this encounter Miscellaneous Notes * Telephone Encounter - Alondra Florentino RN - 05/15/2020 7:[address] Silvestre- see Otterologyt message below. Please advise. Alondra Florentino RN EM DEVELOPMENT ENGINEER documented in this encounter Plan of Treatment Not on file documented as of this encounter Visit Diagnoses Not on filedocumented in this encounter Additional Health Concerns Assessment Noted Time PHQ-9 Depression Total Score: 5 04/30/20 20 3:13 PM SYSTEM DEVELOPMENT ENGINEER documented as of this encounter Care Teams Medical Corps Officer Relationship Specialty Start [place] [address] [place] [address] PCP - General Family Practice 11/27/18 Karen Miller Personal Advocate & Liaison (PAL) Family Medicine 04/30/20 08/26/20 [place] [address] [place] [address] Assigned PCP 05/11/20 01/12/24 Jackelyn Carrera MD [address] [place] [address] photogrammetrist 10/21/23 iLtzy Vergara, PARupertoC [address] [place] [address] Physician Director Global Development Family Medicine 10/21/23 Jackelyn Carrera MD [address] [place], [place] [address] Assigned OBGYN Provider 11/13/23 Vi La PA-C [address] [place] [address] Assigned PCP 01/13/24 documented as of this encounter
--- OUTSIDE RECORDS SUMMARY | 2024-04-04 11:23 | XMS_ITS | Encounter Summary ---
Author Organization [facility] [place] Address [address] [place] [address] Care Team Providers Care Railway Yard Assistant Name Role Phone Leslie Silvestre MD Primary Care Provider [phone] Katja Catalan MD Primary Care Provider [facility] Primary Care Provide r No Ref-Primary, Physician Primary Care Provider Natasha Horta PAINT PREP TECHNICIAN NECK SKEWER Unavailable + Patricia Tobin MD Unavailable + [facility] Primary Care Provider Patricia Tobin MD Unavailable + Roro Garber PUG MILL OPERATOR HELPER Unavailable [phone] No Ref-Primary, Physician Primary Care Provider Leslie Silvestre MD Unavailable [phone] Leslie Silvestre MD Primary Care Provider [phone] Patricia Tobin MD Unavailable + Karen Miller Unavailable Unavailable Leslie Slivestre MD Unavailable [phone] Jackelyn Carrera MD Unavailable [phone] VergaraLitzy giraldo Eugene RENTERIA Unavailable [phone] Jackelyn Carrera MD Unavailable [phone] AbhinavVi Helena RENTERIA Unavailable [phone] Encounter Details Date Type Department Care Team (Late st Contact Info) Description 03/30/2003 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)] : 98 CHIEF COMPLAINT: Sore throat. HISTORY [...] Stable. [id number] DINA THORNT[place] MD [place]: Document: [id number] [place], [place] Name: JACOB ROBLERO Electronically filed by Sarah Liriano 04/01 12:41 PM documented in this encounter Plan of Treatment Not on file documented as of this encounter Visit Diagnoses Diagnosis ER ENCOUNTER- Primary documented in this encounter Care Teams Railway Yard Assistant Relationship Specialty Start [place] [address] [place] [address] PCP - General 07/22/03 12/17/13 [place] [address] [place] [address] PCP - General Family Practice 12/18/13 05/27/17 [facility] BLACK TOP [place] [place] [address] PCP - General 05/28/17 03/29/18 No Ref-Primary, Physician PCP - General 03/30/18 07/02/18 Natasha Horta APRN NECK SKEWER [address] [place] [address] PCP - Assigned PCP 02/12/18 05/13/18 Patricia Tobin MD PRIMARY ENT [address] [facility] [address] [place] [address] PCP - Assigned PCP 05/14/18 07/25/[address] [address] PCP - General Internal Medicine 07/03/18 09/28/18 No Ref-Primary, Physician PCP - General 09/29/18 11/26/18 [place] [address] [place] [address] PCP - General Family Practice 11/27/18 Patricia Tobin MD PRIMARY ENT [address] [facility] [address] [place] [address] Assigned PCP 06/11/18 10/14/18 Roro Garber, PUG MILL OPERATOR HELPER Clinic Tablet Tester Primary Care - CC 07/26/18 [place] [address] [place] [address] Assigned PCP 10/15/18 12/08/19 Patricia Tobin MD PRIMARY ENT [address] [place] [address] Assigned PCP 12/09/19 05/10/20 Karen Miller Personal Advocate & Liaison (PAL) Family Medicine 04/30/20 08/26/20 [place] [address] [place], [place] [address] Assigned PCP 05/11/20 01/12/24 Jackelyn Carrera MD [address] [place] [address] senior cisco network engineer 10/21/23 Litzy Vergara PA-C [address] [place], [place] [id number] Physician Lay Out Maker Family Medicine 10/21/23 Jackelyn Carrera MD [address] [place] [address] Assigned OBGYN Provider 11/13/23 Vi La PA-C [address] [place] [address] Assigned PCP 01/13/24 documented as of this encounter
--- OUTSIDE RECORDS SUMMARY | 2024-04-04 11:23 | XMS_ITS | Encounter Summary ---
Author Organization [facility] Address [address] [place] [address]. [place] [address] Care Team Providers Care Contour Stitcher Name Role Phone Leslie Silvestre MD Primary Care Provider Leslie Silvestre MD Unavailable [phone] Jackelyn Carrera MD Unavailable [phone] Litzy Vergara PA-C Unavailable Jackelyn Carrera MD Unavailable [phone] Vi La PA-C Unavailable Encounter Details Date Type Department Care Team (Late st Contact Info) Description 02/04/2022 MyC Medical Advice [facility] [address] [place] [phone] [place] Silvestre [place] [id number] [place] [address] Social History Tobacco Use Types Packs/Day [...] and Family Once a week 06/28/2019 Attends Mu-Ism Services Never 06/28 Active Member of Clubs [...] Answer Date Recorded PHQ-2 Score 0 08/28/2020 [facility] - Occupational Stress [...] things needed for daily living? No 06/28/2019 [place] Depression Scale Answer Date Recorded [place] Depression Score 0 12/07/2018 Last EPDS Self Harm Result Not on file 12/07 Education Answer Date Recorded What is the highest level of school you have completed or the highest degree you have received? 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 Called patient LVM. Veronika Gaines Excellence Specialist * Telephone Encounter - Leslie Silvestre MD [...] Total Score: 5 04/30/20 20 3:13 PM PIPE FITTER AMMONIA documented as of this encounter Care Teams Contour Stitcher Relationship Specialty Start [place] [address] [place] [address] PCP - General Family Practice 11/27/18 [place] [address] [place] [address] Assigned PCP 05/11/20 01/12/24 Jackelyn Carrera MD [address] [place] [address] office employee 10/21/23 Litzy Vergara PA-C [address] [place] [address] Physician Pilot Teacher Family Medicine 10/21/23 Jackelyn Carrera MD [address] [place] [address] Assigned OBGYN Provider 11/13/23 Vi La PA-C [address] [place] [address] Assigned PCP 01/13/24 documented as of this encounter
--- OUTSIDE RECORDS SUMMARY | 2024-04-04 11:23 | XMS_ITS | Encounter Summary ---
Author Organization [facility] Address [address] [place] [address]. [place] [address] Care Team Providers Care Resident Care Director Name Role Phone Leslie Silvestre MD Primary Care Provider Leslie Silvestre MD Unavailable [phone] Jackleyn Carrera MD Unavailable [phone] Litzy Vergara PA-C Unavailable [phone] Jackelyn Carrera MD Unavailable [phone] Vi La PA-C Unavailable [phone] Reason for Visit * Reason Onset Date Comments MyChart Communication 11/12/2020 Encounter Details Date Type Department Care Team (Latest Contact Info) Description 11/12/2020 MyC Medical Advice M [facility] [address] [place] [phone] [place] Silvestre [place] [address] [place] [address] MyChart Communication Social History Tobacco Use [...] things needed for daily living? No 06/28/2019 [place] Depression Scale Answer Date Recorded [place] Depression Score 0 12/07/2018 Last EPDS Self Harm Result Not on file 12/07 Education Answer Date Recorded What is the highest level of school you have completed or the highest degree you have received? 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 I was out for vacation last week. They recommended repeat ultrasound in 6 weeks. Would she like to see FORM GRADER OPERATOR for why this keeps happening? * Telephone Encounter - Irwin Jett MD - 11/12/2020 1:41 PM CDT I really would like to leave this until Dr. Silvestre is back, is that possible? If not, then I recommend a virtual visit with one of us to discuss this in details. Irwin Jett MD [facility] [phone] * Telephone Encounter - Alondra Florentino RN - 11/12/2020 1:09 PM CDT See Traiana message below. Please advise. Alondra Florentino RN * Telephone Encounter - Titus Hidalgo RN - 11/12/2020 12:28 PM CDT MyChart message sent to patient for clarification. Per [...] seen the results. There is a duplicate JigseeharPaxera communication regarding this matter as well. Harjeet Connolly CMA (AAMA) documented in this encounter Plan of Treatment Not on file documented as of this encounter Visit Diagnoses Not on filedocumented in this encounter Additional Health Concerns Assessment Noted Time PHQ-9 Depression Total Score: 5 04/30/20 20 3:13 PM EXTERN documented as of this encounter Care Teams Resident Care Director Relationship Specialty Start [place] [address] [place] [address] PCP - General Family Practice 11/27/18 [place] [address] [place] [address] Assigned PCP 05/11/20 01/12/24 Jackelyn Carrera MD [address] [place] [address] metal patternmaker apprentice 10/21/23 Litzy Vergara PA-C [address] [place], [place] [id number] Physician Sharebroker Family Medicine 10/21/23 Jackelyn Carrera MD [address] [place] [address] Assigned OBGYN Provider 11/13/23 Vi La PA-C [address] [place] [address] Assigned PCP 01/13/24 documented as of this encounter
--- OUTSIDE RECORDS SUMMARY | 2024-04-04 11:23 | XMS_ITS | Encounter Summary ---
Author Organization [facility] Address [address] [place] [address]. [place] [address] Care Team Providers Care Carbide Tool Die Maker Name Role Phone Leslie Silvestre MD Unavailable [phone] Leslie Silvestre MD Primary Care Provider [phone] Patricia Tobin MD Unavailable + Karen Miller Unavailable Unavailable OLeslie Espinosa MD Unavailable [phone] Jackelyn Carrera MD Unavailable [phone] Litzy Vergara PA-C Unavailable [phone] Jackelyn Carrera MD Unavailable [phone] Vi La PA-C Unavailable [phone] Encounter Details Date Type Department Care Team (Late st Contact Info) Description 05/25/2019 [facility] Medical Advice [address] [address] Sydni Davalos, ROLLWAY WORKER Social History Tobacco Use Types Packs/Day Years Used Date Smoking Tobacco: Never Smokeless Tobacco: Never Alcohol Use Standard Drinks/Week Comments No 0 (1 standard drink = 0.6 oz pur e alcohol) PHQ-2 Answer Date Recorded PHQ-2 Score 0 11/20/2018 [place] Depression Scale Answer Date Recorded [place] Depression Score 0 12/07/2018 Last EPDS Self Harm Result Not on file 12/07 Comments No Sex and Gender Information Value Date Recorded Sex Assigned at Female 06/28/2018 11:22 AM TRAY PACKER Legal Sex Female 3:40 AM TRAY PACKER Gender Identity Female 06/28/2018 11:22 AM TRAY PACKER Sexual Orientation Not on file 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 Not on file Not on file documented as of this encounter Plan of Treatment Not on file documented as of this encounter Visit Diagnoses Not on filedocumented in this encounter Additional Health Concerns Assessment Noted Time PHQ-9 Depression Total Score: 16 024 10:01 AM TRAY PACKER documented as of this encounter Care Teams Carbide Tool Die Maker Relationship Specialty [place] [address] [place] [address] PCP - General Family Practice 11/27/18 [place] [address] [place] [address] Assigned PCP 10/15/18 12/08/19 Patricia Tobin MD PRIMARY ENT [address] [facility] [address] [place] [address] Assigned PCP 12/09/19 05/10/20 Karen Miller Personal Advocate & Liaison (PAL) Family Medicine 04/30/20 08/26/20 [place] [address] [place] [address] Assigned PCP 05/11/20 01/12/24 Jackelyn Carrera MD [address] [place] [address] woods boss 10/21/23 Litzy Vergara PA-C [address] [place] [address] Physician Check Clerk Family Medicine 10/21/23 Jackelyn Carrera MD [address] [place] [address] Assigned OBGYN Provider 11/13/23 Vi La PA-C [address] [place] [address] Assigned PCP 01/13/24 documented as of this encounter
--- OUTSIDE RECORDS SUMMARY | 2024-04-04 11:23 | XMS_ITS | Encounter Summary ---
Author Organization [facility] Address [address] [place] [address]. [place] [address] Care Team Providers Care Inspection Clerk Name Role Phone Leslie Silvestre MD Primary Care Provider [phone] Leslie Silvestre MD Unavailable [phone] Jackelyn Carrera MD Unavailable [phone] Litzy Vergara PA-C Unavailable Jackelyn Carrera MD Unavailable [phone] Vi La PA-C Unavailable [phone] Encounter Details Date Type Department Care Team (Late st Contact Info) Description 04/20/2021 My[facility] Medical Advice [address] [place] [phone] Liz Stern, RN Social History Tobacco [...] and Family Once a week 06/28/2019 Attends Mormon Services Never 06/28 Active Member of Clubs [...] Answer Date Recorded PHQ-2 Score 0 08/28/2020 [facility] - Occupational [...] things needed for daily living? No 06/28/2019 [place] Depression Scale Answer Date Recorded [place] Depression Score 0 12/07/2018 Last EPDS Self Harm Result Not on file 12/07 Education Answer Date Recorded What is the highest level of school you have completed or the highest degree you have received? 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 No / Unsure 04/23/2021 11:47 AM TEST ENGINE OPERATOR documented as of this encounter Plan of Treatment Not on file documented as of this encounter Visit Diagnoses Not on filedocumented in this encounter Additional Health Concerns Assessment Noted Time PHQ-9 Depression Total Score: 5 04/30/20 20 3:13 PM TEST ENGINE OPERATOR documented as of this encounter Care Teams Inspection Clerk Relationship Specialty [place] [address] [place] [address] PCP - General Family Practice 11/27/18 [place] [address] [place] [address] Assigned PCP 05/11/20 01/12/24 Jackelyn Carrera MD [address] [place] [address] content specialist 10/21/23 Litzy Vergara PA-C [id number] [place] [address] Physician Impregnator Electrolytic Capacitors Family Medicine 10/21/23 Jackelyn Carrera MD [address] [place] [address] Assigned OBGYN Provider 11/13/23 Vi La PA-C [id number] [place] [phone] Assigned PCP 01/13/24 documented as of this encounter
--- OUTSIDE RECORDS SUMMARY | 2024-04-04 11:23 | XMS_ITS | Encounter Summary ---
Author Organization [facility] Address [address] [place] [address]. [place] [address] Care Team Providers Care C Web Developer Name Role Phone Leslie Silvestre MD Primary Care Provider [phone] Karen Miller Unavailable Unavailable Leslie Silvestre MD Unavailable [phone] Jackelyn Carrera MD Unavailable [phone] Litzy Vergara PA-C Unavailable Jackelyn Carrera MD Unavailable [phone] Vi La PA-C Unavailable [phone] Encounter Details Date Type Department Care Team (Late st Contact Info) Description 05/29/2020 [facility] Medical Advice [address] [address] [place] [id number] [place] [address] Social History Tobacco Use Types Packs/Day [...] and Family Once a week 06/28/2019 Attends Gnosticist Services Never 06/28 Active Member of Clubs [...] Answer Date Recorded PHQ-2 Score 2 04/30/2020 [facility]at [facility] - [...] things needed for daily living? No 06/28/2019 [place] Depression Scale Answer Date Recorded [place] Depression Score 0 12/07/2018 Last EPDS Self Harm Result Not on file 12/07 Education Answer Date Recorded What is the highest level of school you have completed or the highest degree you have received? 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 No / Unsure 05/29/2020 9:40 AM INFORMATION DEVELOPER documented as of this encounter Miscellaneous Notes * Telephone Encounter - Evens Santana RN - 05/29/2020 5:52 PM CST Responded to patient via Miroi, will monitor response Evens Santana RN RMATION DEVELOPER * Telephone Encounter - Leslie Silvestre MD - 05/29/2020 5:43 PM CST I believe the control pill would be best to regulate her cycle and protect future fertility. If she is trying to conceive, I can refer her to [facility] for treatment and fertility consult RMATION DEVELOPER documented in this encounter Plan of Treatment Not on file documented as of this encounter Visit Diagnoses Not on filedocumented in this encounter Additional Health Concerns Assessment Noted Time PHQ-9 Depression Total Score: 5 04/30/20 20 3:13 PM INFORMATION DEVELOPER documented as of this encounter Care Teams C Web Developer Relationship Specialty [place] [address] [place] [address] PCP - General Family Practice 11/27/18 Karen Miller Personal Advocate & Liaison (PAL) Family Medicine 04/30/20 08/26/20 [place] [address] [place] [address] Assigned PCP 05/11/20 01/12/24 Jackelyn Carrera MD [address] [place] [address] cougar hunter 10/21/23 Litzy Vergara PA-C [address] [place] [address] Physician Sunday [employer] Missionary Family Medicine 10/21/23 Jackelyn Carrera MD [address] [place] [address] Assigned OBGYN Provider 11/13/23 Vi La PA-C [address] [place] [address] Assigned PCP 01/13/24 documented as of this encounter
--- OUTSIDE RECORDS SUMMARY | 2024-04-04 11:23 | XMS_ITS | Encounter Summary ---
Author Organization [facility] Address [address] [place] [address]. [place] [address] Care Team Providers Care Mechanical Engineering Director Name Role Phone Leslie Silvestre MD Primary Care Provider Leslie Silvestre MD Unavailable [phone] Jackelyn Carrera MD Unavailable [phone] Litzy Vergara PA-C Unavailable Jackelyn Carrera MD Unavailable [phone] Vi La PA-C Unavailable [phone] Reason for Visit * Reason Onset Date Comments MyChart Communication 11/12/2020 Encounter Details Date Type Department Care Team (Latest Contact Info) Description 11/12/2020 MyC Medical Advice [facility] [address] [place] [phone] [place] [id number] [place] [address] MyChart Communication Social History Tobacco Use [...] Answer Date Recorded PHQ-2 Score 0 08/28/2020 [facility] - Occupational [...] things needed for daily living? No 06/28/2019 [place] Depression Scale Answer Date Recorded [place] Depression Score 0 12/07/2018 Last EPDS Self Harm Result Not on file 12/07 Education Answer Date Recorded What is the highest level of school you have completed or the highest degree you have received? 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 Harjeet Connolly CLINICAL DOCUMENTATION SPECIALIST (AAMA) documented in this encounter Plan of Treatment Not on file documented as of this encounter Visit Diagnoses Not on filedocumented in this encounter Additional Health Concerns Assessment Noted Time PHQ-9 Depression Total Score: 5 04/30/20 20 3:13 PM APPLIED PSYCHOLOGY CHAIR documented as of this encounter Care Teams Mechanical Engineering Director Relationship Specialty [place] [address] [place] [address] PCP - General Family Practice 11/27/18 [place] [address] [place] [address] Assigned PCP 05/11/20 01/12/24 Jackelyn Carrera MD [address] [place] [address] library media assistant 10/21/23 Litzy Vergara PA-C [address] [place] [address] Physician Game Show Host Family Medicine 10/21/23 Jackelyn Carrera MD [address] [place] [address] Assigned OBGYN Provider 11/13/23 Vi La PA-C [address] [place] [address] Assigned PCP 01/13/24 documented as of this encounter
--- OUTSIDE RECORDS SUMMARY | 2024-04-04 11:23 | XMS_ITS | Encounter Summary ---
Author Organization [facility] Address [address] [place] [address] Care Team Providers Care Dining Car Server Name Role Phone [facility] Primary Care Provider Patricia Tobin MD Unavailable + Roro Garber MEDICAL CODING INSTRUCTOR Unavailable [phone] No Ref-Primary, Physician Primary Care Provider Leslie Silvestre MD Unavailable [phone] Leslie Silvestre MD Primary Care Provider [phone] Patricia Tobin MD Unavailable + Karen Miller Unavailable Unavailable Leslie Silvestre MD Unavailable [phone] Jackelyn Carrera MD Unavailable [phone] Litzy Vergara PA-C Unavailable [phone] Jackelyn Carrera MD Unavailable [phone] Vi La PA-C Unavailable [phone] Reason for Visit * Reason Onset Date Comments Care 08/05/2018 palpatations Encounter Details Date Type Department Care Team (Late st Contact Info) Description 08/05/2018 MyC Medical Advice [facility] [address] [place] [address] Tarah Fields CNM NO INFO AVAILABLE 05/13/2022 [...] Sex Assigned at Female 06/28/2018 11:22 AM COORDINATOR VOLUNTEER SERVICES Legal Sex Female 3:40 AM COORDINATOR VOLUNTEER SERVICES Gender Identity Female 06/28/2018 11:22 AM COORDINATOR VOLUNTEER SERVICES Sexual Orientation Not on file 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 Sridevi [facility] documented in this encounter Plan of Treatment Not on file documented as of this encounter Visit Diagnoses Not on filedocumented in this encounter Additional Health Concerns Assessment Noted Time PHQ-9 Depression Total Score: 16 024 10:01 AM COORDINATOR VOLUNTEER SERVICES documented as of this encounter Care Teams Dining Car Server Relationship Specialty Start Date End Date Clinic - [facility] [address] [address] PCP - General Internal Medicine 07/03/18 09/28/18 No Ref-Primary, Physician PCP - General 09/29/18 11/26/18 [place] [address] [place] [address] PCP - General Family Practice 11/27/18 Patricia Tobin MD PRIMARY ENT [address] [facility] [address] [place], [place] [address] Assigned PCP 06/11/18 10/14/18 Roro Garber, [facility] Vp Cardiovascular Service Line Primary Care - CC 07/26/18 [place] [address] [place], [place] [address] Assigned PCP 10/15/18 12/08/19 Patricia Tobin MD PRIMARY ENT [address] [facility] [address] [place] [address] Assigned PCP 12/09/19 05/10/20 Karen Miller Personal Advocate & Liaison (PAL) Family Medicine 04/30/20 08/26/20 [place] [address] [place], [place] [address] Assigned PCP 05/11/20 01/12/24 Jackelyn Carrera MD [address] [place] [address] bean picker 10/21/23 Litzy Vergara, PA-C [address] [place], [place] [id number] Physician Live Source Operator Family Medicine 10/21/23 Jackelyn Carrera MD [address] [place] [address] Assigned OBGYN Provider 11/13/23 Vi La PA-C [address] [place] [address] Assigned PCP 01/13/24 documented as of this encounter
--- OUTSIDE RECORDS SUMMARY | 2024-04-04 11:23 | XMS_ITS | Encounter Summary ---
Author Organization [facility] Address [address] [place] [address] Care Team Providers Care Skid Man Name Role Phone [facility] Primary Care Provider Patricia Tobin MD Unavailable + No Ref-Primary, Physician Primary Care Provider Leslie Silvestre MD Unavailable Leslie Silvestre MD Primary Care Provider Patricia Tobin MD Unavailable + Karen Miller Unavailable Unavailable O'Leslie Enrique MD Unavailable [phone] Jackelyn Carrera MD Unavailable [phone] Litzy Vergara PA-C Unavailable Jackelyn Carrera MD Unavailable Vi La PA-C Unavailable [phone] Reason for Visit * Reason Onset Date Comments MyChart Communication 09/18/2018 update 08/22 12/08 MyChart message left arm discomfort Encounter Details Date Type Department Care Team (Latest Contact Info) Description 09/18/2018 [facility] Medical Advice M [address] [address] [place] [address] [place], [place] [id number] [facility] (update 09/16/18 MyC... 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 Not on file Not on file documented as of this encounter Plan of Treatment Not on file documented as of this encounter Visit Diagnoses Not on filedocumented in this encounter Additional Health Concerns Assessment Noted Time PHQ-9 Depression Total Score: 16 024 10:01 AM CLOCKMAKER documented as of this encounter Care Teams Skid Man Relationship Specialty Start Date End Date [facility] - [address] [address] PCP - General Internal Medicine 07/03/18 09/28/18 No Ref-Primary, Physician PCP - General 09/29/18 11/26/18 [place] [address] [place] [address] PCP - General Family Practice 11/27/18 Patricia Tobin MD [facility]IMARY ENT [address] [facility] [address] [place] [address] Assigned PCP 06/11/18 10/14/18 [place] [address] [place] [address] Assigned PCP 10/15/18 12/08/19 Patricia Tobin MD PRIMARY ENT [address] [place], [place] [address] Assigned PCP 12/09/19 05/10/20 Karen Miller Personal Advocate & Liaison (PAL) Family Medicine 04/30/20 08/26/20 [place] [address] [place] [address] Assigned PCP 05/11/20 01/12/24 Jackelyn Carrera MD [address] [place] [address] retail consultant 10/21/23 Litzy Vergara PA-C [address] [place], [place] [id number] Physician Feather Curling Machine Operator Family Medicine 10/21/23 Jackelyn Carrera MD [address] [place] [address] Assigned OBGYN Provider 11/13/23 Vi La PA-C [address] [place] [address] Assigned PCP 01/13/24 documented as of this encounter
--- OUTSIDE RECORDS SUMMARY | 2024-04-04 11:23 | XMS_ITS | Encounter Summary ---
Author Organization [facility] Address [address] [place] [address] Care Team Providers Care Utilities Service Investigator Name Role Phone Leslie Silvestre MD Primary Care Provider [phone] Leslie Silvestre MD Unavailable Jackelyn Carrera MD Unavailable [phone] Litzy Vergara PA-C Unavailable Jackelyn Carrera MD Unavailable [phone] Vi La PA-C Unavailable [phone] Encounter Details Date Type Department Care Team (Late st Contact Info) Description 11/19/2020 [facility] Medical Adv[facility] [address] [place] [phone] Corina Palacios Social History Tobacco Use Types [...] and Family Once a week 06/28/2019 Attends Shinto Services Never 06/28 Active Member of Clubs [...] Answer Date Recorded PHQ-2 Score 0 08/28/2020 [facility] of Occupat ional Health - Occupational Stress [...] things needed for daily living? No 06/28/2019 [place] Depression Scale Answer Date Recorded [place] Depression Score 0 12/07/2018 Last EPDS Self Harm Result Not on file 12/07 Education Answer Date Recorded What is the highest level of school you have completed or the highest degree you have received? 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 Not on file Not [...] Score: 5 04/30/20 20 3:13 PM IT SYSTEMS ANALYST CONSULTANT documented as of this encounter Care Teams Utilities Service Investigator Relationship Specialty Start [place] [address] [place] [address] PCP - General Family Practice 11/27/18 [place] [address] [place] [address] Assigned PCP 05/11/20 01/12/24 Jackelyn Carrera MD [address] [place] [address] software support representative 10/21/23 Litzy Vergara PA-C [address] [place] [address] Physician Petrologist Family Medicine 10/21/23 Jackelyn Carrera MD [address] [place] [address] Assigned OBGYN Provider 11/13/23 Vi La PA-C [address] [place] [address] Assigned PCP 01/13/24 documented as of this encounter
[2024-04-04 11:43] LABS: Basophils Percent Auto 0.5 % (0.0-3.0); Eosinophils Percent Auto 0.9 % (0.0-7.0); Hematocrit 42.2 % (33.0-51.0); Hemoglobin* 13.4 gm/dL (12.0-16.0); Immature Granulocytes Pct Auto 0.2 %; Lymphocytes Percent Auto 34.4 % (20-44); Mean Corpuscular HGB Conc 32 gm/dL (32-36); Mean Corpuscular Hemoglobin 28 pg (26-34); Mean Corpuscular Volume 87 fL (80-100); Monocytes Percent Auto 6.5 % (0.0-11.0); Neutrophils Percent Auto 57.5 % (42.0-72.0); Platelet Count* 264 K/uL (140-440); Red Blood Count 4.85 m/uL (4.00-5.20)
[2024-04-04 11:45] LABS: Slide Review Reflex No
--- NOTE | 2024-04-04 11:48 | ED.GENADULT ---
HPI - General Adult General Date Seen: 04/04/24 Chief complaint: Shortness of Breath/Dyspnea Stated complaint: Difficutly breathing, chest tightness Time Seen by Provider: 04/04/24 10:56 Source: patient, RN notes reviewed and old records reviewed Mode of arrival: ambulatory Limitations: no limitations History of Present Illness HPI narrative: Patient is a 24-year-old woman who says for the past couple of weeks she has been feeling like it is hard to get her breath, she has also had some central chest pain which she says is sharp and episodic. Sometimes it hurts to take a deep breath. It hurts to roll over at night. She denies fever cough, denies leg swelling or pain. She also notes increased floaters but says this is been going on for quite some time. No flashers, no vision changes. Looking through her chart, she was seen for similar symptoms about a year ago, seen a couple of times in Urgent Care, prescribed a couple of different antibiotics, and then finally saw Tiffany Wallace. At that time, symptoms were felt to be related to possible anxiety, she does have a psychiatrist in says a couple of different medications have been prescribed for her but admits that she has not tried any of them. She feels nervous about taking medication for her anxiety. It does not sound as if her psychiatrist is aware of this. She used to smoke, she quit a couple of years ago. She does not use any substances including alcohol or marijuana. 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 Breathing easily. Head: Normocephalic, atraumatic. Eyes: Sclera clear. Pupils equal and reactive. ENT: Mucous membranes moist. Neck: Supple without adenopathy. Heart: Regular rate and rhythm without murmur. Lungs: Clear. No increased work of breathing, crackles or wheezes. Abdomen: Soft, nontender to palpation. Extremities: Well perfused, pulses intact. No significant edema. Neurologic: Alert, conversant. Speech fluent, face symmetric. Moves all extremities equally. Skin: Warm, dry well perfused. Affect: Anxious. Const: Vital Signs, click to edit/add: Vital Signs - 24 hr 04/04/24 10:52 Temperature 97.1 F L Pulse Rate [Pulse Oximeter] 80 Respiratory Rate 18 Blood Pressure [Ri ght Upper Arm] 145/90 H Pulse Oximetry 99 Oxygen Delivery Me thod Room Air Documenting provider has reviewed patient's vital signs: yes Course Course ED Course: Patient is very pleasant and cooperative, I do get the sense that she continues to have poorly controlled anxiety and that this is likely contributing to her symptoms over the past couple weeks. However, will get an EKG, chest x-ray and some basic labs. She did have a D-dimer done a year ago when she had these symptoms and that was normal, will make sure that that remains normal today. EKG by my review shows a ventricular rate of 77, normal sinus rhythm. No acute ST segment changes. Normal corrected QT, normal T-waves. Chest x-ray is negative by my review. Final radiology read likewise negative. Labs are notable for an essentially normal white blood cell count, 4.3 with a normal diff. Hemoglobin is normal. D-dimer is less than 0.27, metabolic panel normal, blood sugar 72, CRP less than 0.5 and TSH is 2. Viral swab is negative. Point of care troponin is 0. No evidence of pericarditis on EKG. No infiltrate on chest x-ray, D-dimer negative and I think pulmonary embolism is adequately ruled out. Discussed with her that from a physical standpoint, everything checks out well. She asked about testing for asthma, I have asked her to talk with Tiffany about that. I did strongly encourage her to talk further with her psychiatrist about management of her anxiety. Return any time for significant worsening, severe shortness of breath, fevers, etcetera. Vital Signs Vital signs: Initial Vital Signs Temperature 97.1 F L 04/04/24 10:52 Temperature Source Temporal Artery Scan 04/04/24 10:52 Pulse Rate 80 04/04/24 10:52 Respiratory Rate 18 04/04/24 10:52 Blood Pressure 145/90 H 04/04/24 10:52 Blood Pressure Mean 108 H 04/04/24 10:52 Blood Pressure Position Sitting 04/04/24 10:52 Pulse Oximetry 99 04/04/24 10:52 Oxygen Delivery Method Room Air 04/04/24 10:52 Vital Signs Temperature 97.1 F L 04/04/24 10:52 Pulse Rate 80 04/04/24 10:52 Respiratory Rate 18 04/04/24 10:52 Blood Pressure 145/90 H 04/04/24 10:52 Pulse Oximetry 99 04/04/24 10:52 Oxygen Delivery Method Room Air 04/04/24 10:52 Temperature 97.1 F L 04/04/24 10:52 Pulse Rate 80 04/04/24 10:52 Respiratory Rate 18 04/04/24 10:52 Blood Pressure 145/90 H 04/04/24 10:52 Pulse Oximetry 99 04/04/24 10:52 Oxygen Delivery Method Room Air 04/04/24 10:52 Medical Decision Making Lab Data Labs: Lab Results 04/04/24 04/04/24 04/04/24 Range/Units 11:11 11:16 11:27 WBC 4.30 L (4.50-11.00) K/uL RBC 4.85 (4.00-5.20) m/uL Hgb 13.4 (12.0-16.0) gm/dL Hct 42.2 (33.0-51.0) % MCV 87 (80-100) fL MCH 28 (26-34) pg MCHC 32 (32-36) gm/dL RDW Coeff of Tomasa 12.0 (11.5-15.5) % Plt Count 264 (140-440) K/uL Neut % (Auto) 57.5 (42.0-72.0) % Lymph % (Auto) 34.4 (20-44) % [place] % (Auto) 6.5 (0.0-11.0) % Eos % (Auto) 0.9 (0.0-7.0) % Baso % (Auto) 0.5 (0.0-3.0) % Neut # (Auto) 2.50 (1.7-7.0) K/uL Lymph # (Auto) 1.50 (0.90-2.90) K/uL [place] # (Auto) 0.30 (0.00-0.90) K/UL Eos # (Auto) 0.00 (0.00-0.50) K/uL Baso # (Auto) 0.00 (0.00-0.30) K/uL Abs Immat Gran (auto) 0.00 (0.00-0.30) K/uL Imm/Tot Granulo (auto) 0.2 % D-Dimer Quant (PE/DVT) < 0.27 (0.00-0.50) ug/ml Sodium 137 (135-149) mmol/L Potassium 3.8 (3.6-5.1) mmol/L Chloride 103 (96-114) mmol/L Carbon Dioxide 23 (20-32) mmol/L Anion Gap 11 (7-15) mEq/L BUN 11 (5-24) mg/dL Creatinine 0.6 (0.5-1.5) mg/dL Estimated Creat Clear 117.54 Estimated GFR 127 ml/min Glucose 72 (60-115) mg/dL Calcium 9.4 (8.4-10.6) mg/dL C-Reactive Protein < 0.5 L (0.5-1.0) mg/dL TSH 2.080 (0.270-4.200) uIU/mL SARS-CoV-2 (PCR) Negative SARS-CoV-2 (Negative) Influenza Type A (PCR) Negative PCR FLU A (Negative) Influenza Type B (PCR) Negative PCR FLU B (Negative) RSV (PCR) Negative PCR RSV (Negative) POC Troponin I 0.00 L (0.01-0.04) ng/ml Discharge Plan Discharge Clinical Impression: Shortness of breath, Anxiety Instructions: Anxiety (ED) Additional Instructions: Your test today are all normal. There is no evidence of pneumonia, blood clot or heart condition. I do think that your anxiety, which seems to be not well managed at this point, may be contributing to your symptoms. I would strongly encourage you to discuss this with your psychiatrist and to reconsider your decision thus far not to start the prescribed Zoloft. You can follow-up with your psychiatrist or with Tiffany Frey in clinic for persistent symptoms. Return at any time if you are feeling significantly worse. Prescriptions: No Action No Known Home Medications Follow Up/Referrals: Leslie Ibarra [facility] [Primary Care Provider] - Stand Alone Forms: [employer] Info Instructions
[2024-04-04 11:57] LABS: PCR FLU A Negative PCR FLU A (Negative); PCR FLU B Negative PCR FLU B (Negative); PCR RSV Negative PCR RSV (Negative); SARS PCR* Negative SARS-CoV-2 (Negative)
[2024-04-04 11:59] LABS: Chloride* 103 mmol/L (96-114); Sodium* 137 mmol/L (135-149)
[2024-04-04 12:00] LABS: Potassium* 3.8 mmol/L (3.6-5.1)
[2024-04-04 12:02] LABS: Creatinine* 0.6 mg/dL (0.5-1.5); Est. Creatinine Clearance* 117.54; Estimated Glomerular Filt Rate 127 ml/min
[2024-04-04 12:03] LABS: Anion Gap 11 mEq/L (7-15); Blood Urea Nitrogen* 11 mg/dL (5-24); Calcium* 9.4 mg/dL (8.4-10.6); Carbon Dioxide* 23 mmol/L (20-32); Glucose* 72 mg/dL (60-115)
[2024-04-04 12:11] LABS: C Reactive Protein* < 0.5 mg/dL (0.5-1.0)
[2024-04-04 12:28] LABS: D Dimer Quantitative* < 0.27 ug/ml (0.00-0.50)
== END 2024-04-04 12:50 | disposition home or self-care (01) ==
PROVIDERS: Emergency Provider Emergency Medicine; PCP Nurse Practitioner Family
DX: F41.9 Anxiety disorder, unspecified (principal); R06.02 Shortness of breath
CPT/HCPCS: 36415; 71046; 80048; 84443; 84484; 85025; 85379; 86140; 87631; 93005; 99284

== ENCOUNTER 2024-08-22 13:13 | Outpatient (CLI) | payer BC, SELFPAY ==
[2024-08-22 22:57] LABS: Chlamydia DNA Amplified* NOT DETECTED (No Detected); GC DNA Amplified* NOT DETECTED (No Detected)
== END 2024-08-22 13:14 | disposition home or self-care (01) ==
PROVIDERS: PCP Nurse Practitioner Family
DX: Z11.3 Encounter for screening for infections with a predominantly sexual mode of transmission (principal)
CPT/HCPCS: 86592; 86703; 87491; 87591

== ENCOUNTER 2024-08-24 10:38 | Outpatient (CLI) | payer BC, SELFPAY | END 2024-08-24 10:39 | disposition home or self-care (01) | PROVIDERS: PCP Nurse Practitioner Family; Visit Provider Nurse Practitioner Family | DX: R53.83 Other fatigue (principal); Z13.6 Encounter for screening for cardiovascular disorders; Z13.1 Encounter for screening for diabetes mellitus; Z13.29 Encounter for screening for other suspected endocrine disorder; Z11.59 Encounter for screening for other viral diseases | CPT/HCPCS: 80061; 82947; 84443; 86694; 86803; 87340 ==

== ENCOUNTER 2025-01-24 11:06 | Outpatient (CLI) | payer BC, SELFPAY | END 2025-01-24 11:07 | disposition home or self-care (01) | PROVIDERS: PCP Nurse Practitioner Family; Visit Provider Nurse Practitioner Family | DX: R53.83 Other fatigue (principal) | CPT/HCPCS: 82728; 82947 ==